=== PATIENT | male | born 1990 | race Caucasian/White ===

== ENCOUNTER 2023-01-12 20:06 | Emergency (ER) | payer MEDICAID, SELFPAY ==
[2023-01-12 20:21] VITALS: BP 134/83; PULSE 63; RESP 14; TEMP 36.9; O2SAT 100; BMI 29.4
[2023-01-12 20:22] VITALS: BP 134/83
--- NOTE | 2023-01-12 20:30 | ECG_ITS ---
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
--- NOTE | 2023-01-12 20:36 | ED_ITS ---
Documented by User: ARIC Coulter 01/12/23 22:43 HPI - Chest Pain General Chief Complaint: Chest Pain Stated Complaint: CHEST PAIN Time Seen by Provider: 01/12/23 20:08 Source: patient Mode of arrival: walk-in History of Present Illness HPI narrative: patient is a 32-year-old male history of tricuspid valve repair five years ago who presents to the Emergency Room for a one-week history of anterior chest discomfort, left arm pain and jaw pain. He states his symptoms have been coming and going over the last week, he states approximately two weeks ago he fell on a walk and was concerned she may have broken something in his sternum where he had his previous surgery but states the sternal pain seems to of subsided. He has had no fevers, cough, congestion. He does not feel short of breath. He states when his jaw pain got bad this evening, he got very anxious and nervous and came to the Emergency Room to be evaluated. He has had no swelling in his legs. Related Data Home Medications Medication Instructions Recorded Confirmed famotidine 20 mg tablet 20 mg PO BID 01/12/23 01/12/23 lisinopril 10 mg tablet 10 mg PO DAILY 01/12/23 01/12/23 Previous Rx's Medication Instructions Recorded methocarbamol 750 mg tablet 750 mg PO TID PRN pain #20 tabs 01/12/23 naproxen sodium 550 mg tablet 550 mg PO BID PRN pain #10 tabs 01/12/23 Allergies Allergy/AdvReac Type Severity Reaction Status Date / Time diphenhydramine Allergy Severe Verified 01/12/23 20:24 [From Dana] Penicillins Allergy Severe Verified 01/12/23 20:24 Review of Systems ROS Constitutional Denies: fever or chills Ears, nose, mouth, and throat Denies: throat pain Cardiovascular Reports: chest pain; Denies: palpitations Respiratory Denies: shortness of breath or cough Gastrointestinal Denies: nausea or vomiting Genitourinary Denies: painful urination Musculoskeletal Denies: back pain Integumentary/Breast Denies: rash Neurological Denies: headache Endocrine Denies: excessive urination Allergic/Immunologic Denies: hives Exam Narrative Exam Narrative: Gen.: Awake, alert, in no distress Head: Normocephalic, atraumatic ENT: Moist mucous membranes Respiratory: No respiratory distress, lungs clear bilaterally, well-healed surgical incision over the sternum that is nontender with no ecchymosis or flail chest noted Cardio: Regular rate and rhythm Gastrointestinal: Abdomen is soft, nondistended and nontender to palpation Extremities: Moves extremities equally, no pedal edema Psych: Normal mood and affect Neuro: No focal neuro deficit Skin: Warm, dry, intact Constitutional Vital Signs, click to edit/add: Last Vital Signs Temp 98.5 F 01/12/23 20:21 Pulse 59 L 01/12/23 22:50 Resp 20 01/12/23 22:50 BP 124/79 H 01/12/23 22:50 Pulse Ox 99 01/12/23 22:50 O2 Del Method Room Air 01/12/23 22:50 Course Vital Signs Vital signs: Vital Signs Temperature 98.5 F 01/12/23 20:21 Pulse Rate 63 01/12/23 20:21 Respiratory Rate 14 01/12/23 20:21 Blood Pressure 134/83 H 01/12/23 20:21 Pulse Oximetry 100 01/12/23 20:21 Oxygen Delivery Method Room Air 01/12/23 20:21 Temperature 98.5 F 01/12/23 20:21 Pulse Rate 59 L 01/12/23 22:50 Respiratory Rate 20 01/12/23 22:50 Blood Pressure 124/79 H 01/12/23 22:50 Pulse Oximetry 99 01/12/23 22:50 Oxygen Delivery Method Room Air 01/12/23 22:50 MDM - Chest Pain MDM Narrative Medical decision making narrative: patient was treated with IV Toradol, symptoms of been persistent for over a week. No EKG changes this evening, labs including d-dimer and troponin are within normal limits and x-rays of the chest and sternum show no evidence of acute process. given the patient's clinical history, troponin was repeated and is also within normal limits. Heart score is 2, patient with no history of coronary artery disease or vessel disease. Discharged home with NSAIDs and muscle relaxants. Follow-up with your dispatcher motor vehicle and return to the Emergency Room if symptoms change or worsen Medical Records Data Attestation: I reviewed the patient's medical records. Lab Data Attestation: I reviewed the patient's lab results. Labs: Lab Results 01/12/23 01/12/23 Range/Units 20:45 22:05 WBC 8.6 (4.0-11.0) 10^3/uL RBC 4.55 L (4.70-6.10) 10^6/uL Hgb 14.0 (14.0-18.0) g/dL Hct 41.3 L (42.0-54.0) % MCV 90.8 (80.0-94.0) fL MCH 30.8 (25.9-34.0) pg MCHC 33.9 (29.9-35.2) g/dL RDW 11.8 (11.0-15.0) % Plt Count 266 (150-450) 10^3/uL MPV 10.3 (9.5-13.5) fL Neut % (Auto) 47.8 (43.0-75.0) % Lymph % (Auto) 41.8 (20.5-60.0) % [place] % (Auto) 5.1 (1.7-12.0) % Eos % (Auto) 4.2 (0.9-7.0) % Baso % (Auto) 0.9 (0.2-2.0) % Neut # (Auto) 4.1 (1.4-6.5) 10^3/uL Lymph # (Auto) 3.6 (1.2-3.8) 10^3/uL [place] # (Auto) 0.4 (0.3-0.8) 10^3/uL Eos # (Auto) 0.4 (0.0-0.7) 10^3/uL Baso # (Auto) 0.1 (0.0-0.1) 10^3/uL Abs Immat Gran (auto) 0.02 (0.00-0.03) 10^3/uL Imm/Tot Granulo (auto) 0.2 (0.0-0.5) % PT 9.8 (9.0-11.6) sec INR <0.93 APTT 29.0 (22.3-36.2) sec D-Dimer <0.19 (<=0.59) mg/L FEU Sodium 141 (136-145) mmol/L Potassium 3.9 (3.5-5.1) mmol/L Chloride 107 (98-107) mmol/L Carbon Dioxide 27.0 (21.0-32.0) mmol/L Anion Gap 10.9 BUN 17.0 (7.0-18.0) mg/dL Creatinine 1.23 (0.70-1.30) mg/dL Est GFR ( Amer) >60 (>=60) Est GFR (Non-Af Amer) >60 (>=60) BUN/Creatinine Ratio 13.8 Glucose 96 (74-106) mg/dL Calcium 9.1 (8.5-10.1) mg/dL Total Bilirubin 0.4 (0.2-1.0) mg/dL AST 10 L (15-37) U/L ALT 29 (16-63) U/L Alkaline Phosphatase 80 (46-116) U/L Troponin I High Sens 5.4 5.0 (4.0-76.1) pg/mL NT-Pro-B Natriuret Pep 64.0 (<=450.0) pg/mL Total Protein 7.4 (6.4-8.2) g/dL Albumin 4.3 (3.4-5.0) g/dL Globulin 3.1 g/dL Albumin/Globulin Ratio 1.4 Imaging Data Chest x-ray: Attestation: I have reviewed the pertinent imaging results. Radiologist's impression: Procedure: XR chest 1V EXAM: XR chest 1V, XR sternum min 2V REASON FOR EXAM: Male, 32 years, chest pain. TECHNIQUE: A single AP view of the chest is performed. 2 views of the sternum are performed. COMPARISON: 06/27/2022. FINDINGS: The lungs are expanded and clear. Normal pleura. Sternal wires are present. Normal heart size. A prosthetic valve is seen. Normal mediastinum and leann. Normal visualized pulmonary arteries. Normal visualized aortic arch and descending thoracic aorta. Normal visualized thoracic spine. Normal visualized ribs, clavicles, and shoulders. No sternal fracture is seen. There is no demonstrated abnormality of the visualized soft tissue structures of the upper abdomen. IMPRESSION: No acute process in the lungs. No fracture. Electronically authenticated by: RANJIT COTA Date: 01/12/2023 22:37 Procedure: XR sternum min 2V EXAM: XR chest 1V, XR sternum min 2V REASON FOR EXAM: Male, 32 years, chest pain. TECHNIQUE: A single AP view of the chest is performed. 2 views of the sternum are performed. COMPARISON: 06/27/2022. FINDINGS: The lungs are expanded and clear. Normal pleura. Sternal wires are present. Normal heart size. A prosthetic valve is seen. Normal mediastinum and leann. Normal visualized pulmonary arteries. Normal visualized aortic arch and descending thoracic aorta. Normal visualized thoracic spine. Normal visualized ribs, clavicles, and shoulders. No sternal fracture is seen. There is no demonstrated abnormality of the visualized soft tissue structures of the upper abdomen. IMPRESSION: No acute process in the lungs. No fracture. Electronically authenticated by: RANJIT COTA Date: 01/12/2023 22:37 ECG Data Attestation: I personally reviewed and interpreted this ECG as follows: (normal sinus rhythm at a rate of sixty-nine with a right bundle-branch block, no acute ST elevation or ectopy. EKG reviewed by attending physician) Heart Score History: Moderatly Suspicious ECG: Normal Age: <45 years Risk Factors: 1 or 2 Risk Factors Troponin: <Normal Limit Total Heart Score Recommendations & Risks:: 2 Discharge Plan Discharge Chief Complaint: Chest Pain Clinical Impression: Atypical chest pain Patient Disposition: Home, Self-Care Time of Disposition Decision: 22:37 Condition: Good Mode of Transportation: Private Vehicle Prescriptions / Home Meds: New methocarbamol 750 mg tablet 750 mg PO TID PRN (Reason: pain) Qty: 20 0RF naproxen sodium 550 mg tablet 550 mg PO BID PRN (Reason: pain) Qty: 10 0RF No Action famotidine 20 mg tablet 20 mg PO BID lisinopril 10 mg tablet 10 mg PO DAILY Instructions: Chest Pain (ED) Stand Alone Forms: Portal Instructions Referrals: KRISTIE ARCEO [Primary Care Provider] - 1 week Discharge Date/Time: 01/12/23 22:52 Documented by User: Bebe Ortiz MD 01/12/23 22:58 HPI - Chest Pain General Chief Complaint: Chest Pain Stated Complaint: CHEST PAIN Time Seen by Provider: 01/12/23 20:08 Related Data Home Medications Medication Instructions Recorded Confirmed famotidine 20 mg tablet 20 mg PO BID 01/12/23 01/12/23 lisinopril 10 mg tablet 10 mg PO DAILY 01/12/23 01/12/23 Previous Rx's Medication Instructions Recorded methocarbamol 750 mg tablet 750 mg PO TID PRN pain #20 tabs 01/12/23 naproxen sodium 550 mg tablet 550 mg PO BID PRN pain #10 tabs 01/12/23 Allergies Allergy/AdvReac Type Severity Reaction Status Date / Time diphenhydramine Allergy Severe Verified 01/12/23 20:24 [From Benadryl] Penicillins Allergy Severe Verified 01/12/23 20:24 Exam Constitutional Vital Signs, click to edit/add: Last Vital Signs Temp 98.5 F 01/12/23 20:21 Pulse 59 L 01/12/23 22:50 Resp 20 01/12/23 22:50 BP 124/79 H 01/12/23 22:50 Pulse Ox 99 01/12/23 22:50 O2 Del Method Room Air 01/12/23 22:50 Course Vital Signs Vital signs: Vital Signs Temperature 98.5 F 01/12/23 20:21 Pulse Rate 63 01/12/23 20:21 Respiratory Rate 14 01/12/23 20:21 Blood Pressure 134/83 H 01/12/23 20:21 Pulse Oximetry 100 01/12/23 20:21 Oxygen Delivery Method Room Air 01/12/23 20:21 Temperature 98.5 F 01/12/23 20:21 Pulse Rate 59 L 01/12/23 22:50 Respiratory Rate 20 01/12/23 22:50 Blood Pressure 124/79 H 01/12/23 22:50 Pulse Oximetry 99 01/12/23 22:50 Oxygen Delivery Method Room Air 01/12/23 22:50 MDM - Chest Pain MDM Narrative Medical decision making narrative: patient was treated with IV Toradol, symptoms of been persistent for over a week. No EKG changes this evening, labs including d-dimer and troponin are within normal limits and x-rays of the chest and sternum show no evidence of acute process. given the patient's clinical history, troponin was repeated and is also within normal limits. Heart score is 2, patient with no history of coronary artery disease or vessel disease. Discharged home with NSAIDs and muscle relaxants. Follow-up with your dispatcher motor vehicle and return to the Emergency Room if symptoms change or worsen Attending physician attestation I have reviewed the mid-level documentation, agree with the documentation, medical decision making and treatment plan as outlined by the mid-level provider. Lab Data Labs: Lab Results 01/12/23 01/12/23 Range/Units 20:45 22:05 WBC 8.6 (4.0-11.0) 10^3/uL RBC 4.55 L (4.70-6.10) 10^6/uL Hgb 14.0 (14.0-18.0) g/dL Hct 41.3 L (42.0-54.0) % MCV 90.8 (80.0-94.0) fL MCH 30.8 (25.9-34.0) pg MCHC 33.9 (29.9-35.2) g/dL RDW 11.8 (11.0-15.0) % Plt Count 266 (150-450) 10^3/uL MPV 10.3 (9.5-13.5) fL Neut % (Auto) 47.8 (43.0-75.0) % Lymph % (Auto) 41.8 (20.5-60.0) % [place] % (Auto) 5.1 (1.7-12.0) % Eos % (Auto) 4.2 (0.9-7.0) % Baso % (Auto) 0.9 (0.2-2.0) % Neut # (Auto) 4.1 (1.4-6.5) 10^3/uL Lymph # (Auto) 3.6 (1.2-3.8) 10^3/uL [place] # (Auto) 0.4 (0.3-0.8) 10^3/uL Eos # (Auto) 0.4 (0.0-0.7) 10^3/uL Baso # (Auto) 0.1 (0.0-0.1) 10^3/uL Abs Immat Gran (auto) 0.02 (0.00-0.03) 10^3/uL Imm/Tot Granulo (auto) 0.2 (0.0-0.5) % PT 9.8 (9.0-11.6) sec INR <0.93 APTT 29.0 (22.3-36.2) sec D-Dimer <0.19 (<=0.59) mg/L FEU Sodium 141 (136-145) mmol/L Potassium 3.9 (3.5-5.1) mmol/L Chloride 107 (98-107) mmol/L Carbon Dioxide 27.0 (21.0-32.0) mmol/L Anion Gap 10.9 BUN 17.0 (7.0-18.0) mg/dL Creatinine 1.23 (0.70-1.30) mg/dL Est GFR ( Amer) >60 (>=60) Est GFR (Non-Af Amer) >60 (>=60) BUN/Creatinine Ratio 13.8 Glucose 96 (74-106) mg/dL Calcium 9.1 (8.5-10.1) mg/dL Total Bilirubin 0.4 (0.2-1.0) mg/dL AST 10 L (15-37) U/L ALT 29 (16-63) U/L Alkaline Phosphatase 80 (46-116) U/L Troponin I High Sens 5.4 5.0 (4.0-76.1) pg/mL NT-Pro-B Natriuret Pep 64.0 (<=450.0) pg/mL Total Protein 7.4 (6.4-8.2) g/dL Albumin 4.3 (3.4-5.0) g/dL Globulin 3.1 g/dL Albumin/Globulin Ratio 1.4 Heart Score Total Heart Score Recommendations & Risks:: 2 Discharge Plan Discharge Chief Complaint: Chest Pain Clinical Impression: Atypical chest pain Patient Disposition: Home, Self-Care Time of Disposition Decision: 22:37 Condition: Good Mode of Transportation: Private Vehicle Prescriptions / Home Meds: New methocarbamol 750 mg tablet 750 mg PO TID PRN (Reason: pain) Qty: 20 0RF naproxen sodium 550 mg tablet 550 mg PO BID PRN (Reason: pain) Qty: 10 0RF No Action famotidine 20 mg tablet 20 mg PO BID lisinopril 10 mg tablet 10 mg PO DAILY Instructions: Chest Pain (ED) Stand Alone Forms: Portal Instructions Referrals: KRISTIE ARCEO [Primary Care Provider] - 1 week Discharge Date/Time: 01/12/23 22:52
[2023-01-12 20:53] LABS: Basophils Absolute Auto 0.1 10^3/uL (0.0-0.1); Basophils Percent Auto 0.9 % (0.2-2.0); Eosinophils Absolute Auto 0.4 10^3/uL (0.0-0.7); Eosinophils Percent Auto 4.2 % (0.9-7.0); Hematocrit 41.3 % (42.0-54.0); Immature Granulocytes Abs Auto 0.02 10^3/uL (0.00-0.03); Immature Granulocytes Pct Auto 0.2 % (0.0-0.5); Lymphocytes Absolute Auto 3.6 10^3/uL (1.2-3.8); Lymphocytes Percent Auto 41.8 % (20.5-60.0); Mean Corpuscular HGB Conc 33.9 g/dL (29.9-35.2); Mean Corpuscular Hemoglobin 30.8 pg (25.9-34.0); Mean Corpuscular Volume 90.8 fL (80.0-94.0); Mean Platelet Volume 10.3 fL (9.5-13.5); Monocytes Absolute Auto 0.4 10^3/uL (0.3-0.8); Monocytes Percent Auto 5.1 % (1.7-12.0); Neutrophils Absolute Auto 4.1 10^3/uL (1.4-6.5); Neutrophils Percent Auto 47.8 % (43.0-75.0); Platelet Count 266 10^3/uL (150-450); Red Blood Count 4.55 10^6/uL (4.70-6.10); Red Cell Distribution Width 11.8 % (11.0-15.0); White Blood Count 8.6 10^3/uL (4.0-11.0)
[2023-01-12] MEDS: KETOROLAC TROMETHAMINE 30 MG/ML VIAL IVP (21:01)
[2023-01-12 21:08] LABS: Prothrombin Time 9.8 sec (9.0-11.6)
[2023-01-12 21:10] VITALS: O2SAT 96
[2023-01-12 21:10] LABS: D Dimer <0.19 mg/L FEU (<=0.59); INR <0.93
--- NOTE | 2023-01-12 21:12 | XR_ITS ---
The [address] [address] Patient Name: ALLIE TORRE MRN: [id number] date: 1990 Sex: M Assigned Patient Location: ER Current Patient Location: ED.MAIN Accession/Order Number: [id number] Exam Date: 01/12/2023 21:25 Report Date: 01/12/2023 22:37 At the request of: GEORGIANA LYLE Procedure: XR chest 1V EXAM: XR chest 1V, XR sternum min 2V REASON FOR EXAM: Male, 32 years, chest pain. TECHNIQUE: A single AP view of the chest is performed. 2 views of the sternum are performed. COMPARISON: 06/27/2022. FINDINGS: The lungs are expanded and clear. Normal pleura. Sternal wires are present. Normal heart size. A prosthetic valve is seen. Normal mediastinum and leann. Normal visualized pulmonary arteries. Normal visualized aortic arch and descending thoracic aorta. Normal visualized thoracic spine. Normal visualized ribs, clavicles, and shoulders. No sternal fracture is seen. There is no demonstrated abnormality of the visualized soft tissue structures of the upper abdomen. XR/XR chest 1V IMPRESSION: No acute process in the lungs. No fracture. Electronically authenticated by: RANJIT COTA Date: 01/12/2023 22:37
[2023-01-12 21:14] LABS: Alanine Aminotransferase 29 U/L (16-63); Albumin Globulin Ratio 1.4; Albumin Level 4.3 g/dL (3.4-5.0); Alkaline Phosphatase 80 U/L (46-116); Anion Gap 10.9; Aspartate Amino Transferase 10 U/L (15-37); BUN Creatinine Ratio 13.8; Bilirubin Total 0.4 mg/dL (0.2-1.0); Calcium 9.1 mg/dL (8.5-10.1); Chloride 107 mmol/L (98-107); Estimated GFR (African America >60 (>=60); Estimated GFR (Non-African Ame >60 (>=60); Globulin 3.1 g/dL; Glucose 96 mg/dL (74-106); Potassium 3.9 mmol/L (3.5-5.1); Sodium 141 mmol/L (136-145); Total Protein 7.4 g/dL (6.4-8.2); Troponin I High Sensitivity 5.4 pg/mL (4.0-76.1)
--- NOTE | 2023-01-12 21:23 | XR_ITS ---
The [address] [address] Patient Name: ALLIE TORRE MRN: [id number] date: 1990 Sex: M Assigned Patient Location: ER Current Patient Location: ED.MAIN Accession/Order Number: [id number] Exam Date: 01/12/2023 21:25 Report Date: 01/12/2023 22:37 At the request of: GEORGIANA LYLE Procedure: XR sternum min 2V EXAM: XR chest 1V, XR sternum min 2V REASON FOR EXAM: Male, 32 years, chest pain. TECHNIQUE: A single AP view of the chest is performed. 2 views of the sternum are performed. COMPARISON: 06/27/2022. FINDINGS: The lungs are expanded and clear. Normal pleura. Sternal wires are present. Normal heart size. A prosthetic valve is seen. Normal mediastinum and leann. Normal visualized pulmonary arteries. Normal visualized aortic arch and descending thoracic aorta. Normal visualized thoracic spine. Normal visualized ribs, clavicles, and shoulders. No sternal fracture is seen. There is no demonstrated abnormality of the visualized soft tissue structures of the upper abdomen. XR/XR sternum min 2V IMPRESSION: No acute process in the lungs. No fracture. Electronically authenticated by: RANJIT COTA Date: 01/12/2023 22:37
[2023-01-12 22:50] VITALS: BP 124/79; PULSE 59; RESP 20; O2SAT 99
== END 2023-01-12 22:52 | disposition home or self-care (01) ==
PROVIDERS: Physician Assistant; Emergency Provider Emergency Medicine; PCP Family Medicine
DX: R07.89 Other chest pain (principal); Z98.890 Other specified postprocedural states
CPT/HCPCS: 36415; 71045; 71120; 80053; 83880; 84484; 85025; 85378; 85610; 85730; 93005; 96374; 99285

== ENCOUNTER 2023-08-28 16:12 | Emergency (ER) | payer OTHER, SELFPAY ==
[2023-08-28 16:20] VITALS: BP 135/83; PULSE 83; RESP 16; TEMP 36.9; O2SAT 98; BMI 29.5
--- NOTE | 2023-08-28 16:30 | ECG_ITS ---
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
--- NOTE | 2023-08-28 16:41 | ED.CHESTPAI1 ---
HPI - Chest Pain General Chief Complaint: Chest Pain Stated Complaint: Chest Pain Time Seen by Provider: 08/28/23 16:25 Source: patient Mode of arrival: walk-in History of Present Illness HPI narrative: Patient is a 33-year-old male who presents to the emergency department for pain in the left arm radiating into the left side of the chest and left side of the neck. He states pain began 3 to 4 days ago. He was concerned because he has a history of tricuspid valve surgery at the [facility] 7 years ago. He has been seen in the past for chest pain at this facility. He has not had any significant upper respiratory symptoms, fevers or shortness of breath. No peripheral edema. He states pain is throughout the left arm with occasional tingling, pain is worse with movement at the left shoulder. He reports feeling increased stress over the last week due to the loss of his mother, his family member at the bedside states that he did carry the casket with that left arm. Related Data Home Medications Medication Instructions Recorded Confirmed famotidine 20 mg tablet 20 mg PO BID 01/12/23 01/12/23 lisinopril 10 mg tablet 10 mg PO DAILY 01/12/23 01/12/23 Previous Rx's Medication Instructions Recorded methocarbamol 750 mg tablet 750 mg PO TID PRN pain #20 tabs 01/12/23 naproxen sodium 550 mg tablet 550 mg PO BID PRN pain #10 tabs 01/12/23 methylprednisolone 4 mg tablets in See Rx Instructions .Route 08/28/23 a dose pack (Medrol (Shmuel)) .COMPLEX #21 ea orphenadrine citrate 100 mg 100 mg PO BID PRN muscle pain #14 08/28/23 tablet,extended release tabs Allergies Allergy/AdvReac Type Severity Reaction Status Date / Time diphenhydramine Allergy Severe Verified 08/28/23 16:20 [From Benadryl] Penicillins Allergy Severe Verified 08/28/23 16:20 Review of Systems ROS Constitutional Denies: fever or chills Ears, nose, mouth, and throat Denies: throat pain or nasal congestion Cardiovascular Reports: chest pain Respiratory Denies: shortness of breath or cough Gastrointestinal Denies: nausea or vomiting Musculoskeletal Reports: neck pain and extremity pain; Denies: back pain, extremity swelling, joint pain or limited range of motion Integumentary/Breast Denies: rash Neurological Denies: headache Hematologic/Lymphatic Denies: easy bruising or easy bleeding Exam Narrative Exam Narrative: Gen.: Awake, alert, in no distress Head: Normocephalic, atraumatic ENT: Moist mucous membranes Respiratory: No respiratory distress, lungs clear bilaterally Cardio: Regular rate and rhythm Extremities: Moves extremities equally, Pain with movement of the left arm at the shoulder with no bony point tenderness or obvious deformity. 2+ radial pulses bilaterally. 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 Psych: Normal mood and affect Neuro: No focal neuro deficit Skin: Warm, dry, intact Constitutional Vital Signs, click to edit/add: Last Vital Signs Temp 98.5 F 08/28/23 16:20 Pulse 83 08/28/23 16:20 Resp 16 08/28/23 16:20 BP 135/83 08/28/23 16:20 Pulse Ox 98 08/28/23 16:20 O2 Del Method Room Air 08/28/23 16:49 Course Vital Signs Vital signs: Vital Signs Temperature 98.5 F 08/28/23 16:20 Pulse Rate 83 08/28/23 16:20 Respiratory Rate 16 08/28/23 16:20 Blood Pressure 135/83 08/28/23 16:20 Pulse Oximetry 98 08/28/23 16:20 Oxygen Delivery Method Room Air 08/28/23 16:20 Temperature 98.5 F 08/28/23 16:20 Pulse Rate 83 08/28/23 16:20 Respiratory Rate 16 08/28/23 16:20 Blood Pressure 135/83 08/28/23 16:20 Pulse Oximetry 98 08/28/23 16:20 Oxygen Delivery Method Room Air 08/28/23 16:49 MDM - Chest Pain MDM Narrative Medical decision making narrative: Lab studies including D-dimer and troponin are within normal limits, chest x-ray and cervical x-rays with no evidence of acute process. Patient treated for suspected musculoskeletal pain in the left arm radiating into the neck. He is started on a short course of NSAIDs and muscle relaxants for home. Follow-up with PCP and return to the ER if symptoms change or worsen. Medical Records Data Attestation: I reviewed the patient's medical records. Lab Data Attestation: I reviewed the patient's lab results. Labs: Lab Results 08/28/23 Range/Units 16:30 WBC 8.7 (4.0-11.0) 10^3/uL RBC 4.38 L (4.70-6.10) 10^6/uL Hgb 13.4 L (14.0-18.0) g/dL Hct 39.7 L (42.0-54.0) % MCV 90.6 (80.0-94.0) fL MCH 30.6 (25.9-34.0) pg MCHC 33.8 (29.9-35.2) g/dL RDW 11.7 (11.0-15.0) % Plt Count 313 (150-450) 10^3/uL MPV 10.4 (9.5-13.5) fL Neut % (Auto) 54.3 (43.0-75.0) % Lymph % (Auto) 35.5 (20.5-60.0) % [place] % (Auto) 6.0 (1.7-12.0) % Eos % (Auto) 2.8 (0.9-7.0) % Baso % (Auto) 1.1 (0.2-2.0) % Neut # (Auto) 4.7 (1.4-6.5) 10^3/uL Lymph # (Auto) 3.1 (1.2-3.8) 10^3/uL [place] # (Auto) 0.5 (0.3-0.8) 10^3/uL Eos # (Auto) 0.2 (0.0-0.7) 10^3/uL Baso # (Auto) 0.1 (0.0-0.1) 10^3/uL Abs Immat Gran (auto) 0.03 (0.00-0.03) 10^3/uL Imm/Tot Granulo (auto) 0.3 (0.0-0.5) % PT 10.2 (9.0-11.6) sec INR 0.96 APTT 27.9 (22.3-36.2) sec D-Dimer <0.19 (<=0.59) mg/L FEU Sodium 142 (136-145) mmol/L Potassium 3.8 (3.5-5.1) mmol/L Chloride 108 H (98-107) mmol/L Carbon Dioxide 25.8 (21.0-32.0) mmol/L Anion Gap 12.0 BUN 15.0 (7.0-18.0) mg/dL Creatinine 0.93 (0.70-1.30) mg/dL Est GFR ( Amer) >60 (>=60) Est GFR (Non-Af Amer) >60 (>=60) BUN/Creatinine Ratio 16.1 Glucose 92 (74-106) mg/dL Calcium 9.2 (8.5-10.1) mg/dL Total Bilirubin 0.5 (0.2-1.0) mg/dL AST 13 L (15-37) U/L ALT 26 (16-63) U/L Alkaline Phosphatase 75 (46-116) U/L Troponin I High Sens 5.0 (4.0-76.1) pg/mL NT-Pro-B Natriuret Pep 46.0 (<=450.0) pg/mL Total Protein 7.6 (6.4-8.2) g/dL Albumin 4.1 (3.4-5.0) g/dL Globulin 3.5 g/dL Albumin/Globulin Ratio 1.2 Imaging Data Chest x-ray: Attestation: I have reviewed the pertinent imaging results. Radiologist's impression: ITS Impressions Cervical Spine X-Ray 08/28/23 17:19 IMPRESSION: Minimal retrolisthesis of C2-C5 measuring 1 to 2 mm possibly physiologic. Otherwise unremarkable plain film examination of the cervical spine. Electronically authenticated by: DEJA DODSON Date: 08/28/2023 18:31 Chest X-Ray 08/28/23 17:19 IMPRESSION: No acute infiltrate or evidence of cardiac decompensation. The overall appearance of the chest has not changed significantly. Electronically authenticated by: MANUEL COLON Date: 08/28/2023 18:26 ECG Data Attestation: I personally reviewed and interpreted this ECG as follows: (Normal sinus rhythm Rate of 84, no acute ST elevation, no ectopy. No significant change from 01/12/2023. EKG reviewed by attending physician) ECG interpretation date: 08/28/23 Heart Score History: Slightly/Non-Suspicious ECG: NS Repolarization Age: <45 years Risk Factors: No Risk Factors Troponin: <Normal Limit Total Heart Score Recommendations & Risks:: 1 Discharge Plan Discharge Chief Complaint: Chest Pain Clinical Impression: Atypical chest pain Patient Disposition: Home, Self-Care Time of Disposition Decision: 18:40 Condition: Good Prescriptions / Home Meds: New orphenadrine citrate 100 mg tablet extended release 100 mg PO BID PRN (Reason: muscle pain) Qty: 14 0RF methylprednisolone [Medrol (Shmuel)] 4 mg tablets,dose pack See Rx Instructions .ROUTE .COMPLEX Qty: 21 0RF Rx Instructions: Taper as directed No Action famotidine 20 mg tablet 20 mg PO BID lisinopril 10 mg tablet 10 mg PO DAILY methocarbamol 750 mg tablet 750 mg PO TID PRN (Reason: pain) Qty: 20 0RF naproxen sodium 550 mg tablet 550 mg PO BID PRN (Reason: pain) Qty: 10 0RF Instructions: Chest Pain (ED) Referrals: Physician,Non-Staff, MD [Primary Care Provider] - 1 week Stand Alone Forms: Portal Instructions
[2023-08-28 16:55] LABS: Basophils Absolute Auto 0.1 10^3/uL (0.0-0.1); Basophils Percent Auto 1.1 % (0.2-2.0); Eosinophils Absolute Auto 0.2 10^3/uL (0.0-0.7); Eosinophils Percent Auto 2.8 % (0.9-7.0); Hematocrit 39.7 % (42.0-54.0); Hemoglobin 13.4 g/dL (14.0-18.0); Immature Granulocytes Abs Auto 0.03 10^3/uL (0.00-0.03); Immature Granulocytes Pct Auto 0.3 % (0.0-0.5); Lymphocytes Absolute Auto 3.1 10^3/uL (1.2-3.8); Lymphocytes Percent Auto 35.5 % (20.5-60.0); Mean Corpuscular HGB Conc 33.8 g/dL (29.9-35.2); Mean Corpuscular Hemoglobin 30.6 pg (25.9-34.0); Mean Corpuscular Volume 90.6 fL (80.0-94.0); Mean Platelet Volume 10.4 fL (9.5-13.5); Monocytes Absolute Auto 0.5 10^3/uL (0.3-0.8); Neutrophils Absolute Auto 4.7 10^3/uL (1.4-6.5); Neutrophils Percent Auto 54.3 % (43.0-75.0); Platelet Count 313 10^3/uL (150-450); Red Blood Count 4.38 10^6/uL (4.70-6.10); Red Cell Distribution Width 11.7 % (11.0-15.0); White Blood Count 8.7 10^3/uL (4.0-11.0)
[2023-08-28 17:12] LABS: INR 0.96; Partial Thromboplastin Time 27.9 sec (22.3-36.2); Prothrombin Time 10.2 sec (9.0-11.6)
[2023-08-28 17:16] LABS: D Dimer <0.19 mg/L FEU (<=0.59)
--- NOTE | 2023-08-28 17:19 | XR_ITS ---
The [address] [address] Patient Name: ALLIE TORRE MRN: [id number] date: 1990 Sex: M Assigned Patient Location: ER Current Patient Location: ER Accession/Order Number: [id number] Exam Date: 08/28/2023 17:40 Report Date: 08/28/2023 18:26 At the request of: GEORGIANA LYLE Procedure: XR chest 1V EXAM: XR chest 1V at 1745 hours HISTORY: Chest pain COMPARISON: 01/12/2023 TECHNIQUE: AP upright portable chest x-ray FINDINGS: The heart is not enlarged and the vasculature is not distended. No acute infiltrate, effusion or pneumothorax is identified. Multiple sternal wire sutures are noted with a prosthetic cardiac valve. The osseous structures are grossly intact. XR/XR chest 1V IMPRESSION: No acute infiltrate or evidence of cardiac decompensation. The overall appearance of the chest has not changed significantly. Electronically authenticated by: MANUEL COLON Date: 08/28/2023 18:26
--- NOTE | 2023-08-28 17:19 | XR_ITS ---
The [address] [address] Patient Name: ALLIE TORRE MRN: [id number] date: 1990 Sex: M Assigned Patient Location: ER Current Patient Location: ER Accession/Order Number: [id number] Exam Date: 08/28/2023 17:40 Report Date: 08/28/2023 18:31 At the request of: GEORGIANA LYLE Procedure: XR cervical spine 2-3V EXAM TYPE: XR cervical spine 2-3V INDICATION: Neck pain, shoulder pain COMPARISON: None. TECHNIQUE: 3 views of the cervical spine. FINDINGS: There is minimal retrolisthesis of the C2-C5 levels measuring 1 to 2 mm. Disc spaces are maintained. Prevertebral soft tissues are within normal limits. Lateral masses of C1-C2 are symmetric. XR/XR cervical spine 2-3V IMPRESSION: Minimal retrolisthesis of C2-C5 measuring 1 to 2 mm possibly physiologic. Otherwise unremarkable plain film examination of the cervical spine. Electronically authenticated by: DEJA DODSON Date: 08/28/2023 18:31
[2023-08-28] MEDS: KETOROLAC TROMETHAMINE 30 MG/ML VIAL IVP (17:20)
[2023-08-28] MEDS: ORPHENADRINE 60 MG/ 2 ML VIAL IV (17:21)
[2023-08-28 17:42] LABS: Alanine Aminotransferase 26 U/L (16-63); Albumin Globulin Ratio 1.2; Albumin Level 4.1 g/dL (3.4-5.0); Alkaline Phosphatase 75 U/L (46-116); Aspartate Amino Transferase 13 U/L (15-37); BUN Creatinine Ratio 16.1; Bilirubin Total 0.5 mg/dL (0.2-1.0); Calcium 9.2 mg/dL (8.5-10.1); Carbon Dioxide 25.8 mmol/L (21.0-32.0); Chloride 108 mmol/L (98-107); Estimated GFR (African America >60 (>=60); Estimated GFR (Non-African Ame >60 (>=60); Globulin 3.5 g/dL; Glucose 92 mg/dL (74-106); Potassium 3.8 mmol/L (3.5-5.1); Sodium 142 mmol/L (136-145); Total Protein 7.6 g/dL (6.4-8.2)
== END 2023-08-28 19:00 | disposition home or self-care (01) ==
PROVIDERS: Physician Assistant; Emergency Provider Emergency Medicine Emergency Medical Services
DX: R07.89 Other chest pain (principal); Z79.899 Other long term (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 therapy
CPT/HCPCS: 36415; 71045; 72040; 80053; 83880; 84484; 85025; 85378; 85610; 85730; 93005; 96374; 96375; 99285

== ENCOUNTER 2024-05-22 12:26 | Emergency (ER) | payer OTHER, SELFPAY ==
[2024-05-22 12:32] VITALS: BP 143/87; PULSE 75; TEMP 36.7; O2SAT 99; BMI 31.5
--- NOTE | 2024-05-22 12:48 | CT_ITS ---
The [address] [address] Patient Name: ALLIE TORRE MRN: [id number] date: 1990 Sex: M Assigned Patient Location: ER Current Patient Location: ER Accession/Order Number: [id number] Exam Date: 05/22/2024 13:05 Report Date: 05/22/2024 14:16 At the request of: LARON LUIS Procedure: CT abdomen pelvis w con EXAMINATION: CT abdomen pelvis w con HISTORY: Diffuse pain, worse in the left upper quadrant COMPARISON: No relevant comparison available. TECHNIQUE: Axial, Coronal, and Sagittal images were obtained without and/or with IV contrast as indicated by examination type. Dose reduction techniques were achieved by using automated exposure control and/or adjustment of mA and/or kV according to patient size and/or use of iterative reconstruction technique. FINDINGS: LUNG BASES: No visible pulmonary or pleural disease. LIVER: No enlargement, atrophy, suspicious density, or significant focal lesion. BILIARY: No dilatation or calcification. PANCREAS: No lesion, fluid collection, or abnormal duct dilatation. SPLEEN: No enlargement or focal lesion. ADRENALS: No mass or enlargement. KIDNEYS: No mass, obstruction, or calcification. BOWEL/MESENTERY: Minimal circumferential wall thickening of distal descending and proximal sigmoid colon without surrounding inflammatory changes. AORTA/VASCULAR: No aneurysm or dissection. RETROPERITONEUM: No mass or adenopathy. LYMPH NODES: No adenopathy. URINARY BLADDER: No visible focal wall thickening, lesion, or calculus. PELVIC ORGANS: No visible mass. Pelvic organs appropriate for patient age. ABDOMINAL WALL: No mass or hernia. BONES: No bony lesion or fracture. OTHER: Negative. CT/CT abdomen pelvis w con IMPRESSION: 1. Possible mild colitis. Otherwise unremarkable abdomen and pelvis. Electronically authenticated by: ORLY DEL REAL Date: 05/22/2024 14:16
--- NOTE | 2024-05-22 12:48 | XR_ITS ---
The [address] [address] Patient Name: ALLIE TORRE MRN: [id number] date: 1990 Sex: M Assigned Patient Location: ED.MAIN Current Patient Location: ER Accession/Order Number: [id number] Exam Date: 05/22/2024 13:05 Report Date: 05/22/2024 14:08 At the request of: LARON LUIS Procedure: XR chest 1V EXAM: XR chest 1V at 1321 hours HISTORY: cough, LUQ pain COMPARISON: 08/28/2023 TECHNIQUE: AP upright portable chest x-ray FINDINGS: The lungs are clear. No acute infiltrate, effusion or pneumothorax is identified. The heart is not enlarged and the vasculature is not distended. Multiple sternal wire sutures are noted. The osseous structures are grossly intact. XR/XR chest 1V IMPRESSION: No acute infiltrate or evidence of cardiac decompensation, and the overall appearance of the chest has not changed significantly. Electronically authenticated by: MANUEL COLON Date: 05/22/2024 14:08
--- NOTE | 2024-05-22 12:49 | ED.ABDPAIN1 ---
HPI - Abdominal Pain General Chief Complaint: Abdominal Pain Stated Complaint: ABDOMINAL PAIN Time Seen by Provider: 05/22/24 12:39 Source: patient Mode of arrival: walk-in History of Present Illness HPI narrative: 34-year-old male presents to the emergency department for abdominal pain. Its diffuse physically worse in the left upper quadrant and has had this for the last week or 2. He states is there all the time but is worse when he eats. No constipation diarrhea or vomiting. No blood in his stool. He has never had issues like this previously. He has been taking Tums and Pepcid. Related Data Home Medications ?Medication ?Instructions ?Recorded ?Confirmed lisinopril 10 mg tablet 10 mg PO DAILY 01/12/23 05/22/24 Previous Rx's ?Medication ?Instructions ?Recorded ciprofloxacin HCl 500 mg tablet 500 mg PO Q12H #20 tabs 05/22/24 (Cipro) metronidazole 500 mg tablet 500 mg PO TID #30 tabs 05/22/24 Allergies Allergy/AdvReac Type Severity Reaction Status Date / Time diphenhydramine (From Allergy Severe Verified 08/28/23 16:20 Benadryl) Penicillins Allergy Severe Verified 08/28/23 16:20 Review of Systems ROS Narrative A ten point review of systems is negative except as noted above. PFSH PFSH Social History Little interest or pleasure in doing things: not at all Feeling down, depressed, or hopeless: not at all Exam Narrative Exam Narrative: Nurses note and vital signs reviewed and patient is not hypoxic. General: The patient appears well and in no apparent distress. Patient is resting comfortably on cart. Skin: Warm, dry, no pallor noted. There is no rash noted. Head: Normocephalic, atraumatic Eye: Normal conjunctiva, no drainage Ears, Nose, Mouth, and Throat: oral mucosa is moist. Nares patent. Cardiovascular: Regular Rate and Rhythm Respiratory: Patient is in no distress, no accessory muscle use, lungs are clear to auscultation, no wheezing, rales or rhonchi Back: non-tender GI: Normal bowel sounds, no masses or distention. Mild diffuse tenderness particular in the left upper quadrant. Musculoskeletal: The patient has no evidence of calf tenderness, no pitting edema, symmetrical pulses noted bilaterally Neurological: A&O normal speech Psychiatric: Cooperative Constitutional Vital Signs, click to edit/add: Last Vital Signs Temp 98.0 F 05/22/24 12:32 Pulse 75 05/22/24 12:32 Resp 16 05/22/24 12:32 BP 143/87 H 05/22/24 12:32 Pulse Ox 99 05/22/24 12:32 O2 Del Method Room Air 05/22/24 12:32 Course Vital Signs Vital signs: Vital Signs Temperature 98.0 F 05/22/24 12:32 Pulse Rate 75 05/22/24 12:32 Respiratory Rate 16 05/22/24 12:32 Blood Pressure 143/87 H 05/22/24 12:32 Pulse Oximetry 99 05/22/24 12:32 Oxygen Delivery Method Room Air 05/22/24 12:32 Temperature 98.0 F 05/22/24 12:32 Pulse Rate 75 05/22/24 12:32 Respiratory Rate 16 05/22/24 12:32 Blood Pressure 143/87 H 05/22/24 12:32 Pulse Oximetry 99 05/22/24 12:32 Oxygen Delivery Method Room Air 05/22/24 12:32 MDM - Abdominal Pain MDM Narrative Medical decision making narrative: CT per radiologist suggest colitis. Blood work is nonspecific. He is prescribed Cipro and Flagyl and is discharged home. Treatment diagnosis and follow-up were discussed with the patient. Differential Diagnosis Differential diagnosis: Likely abdominal pain, constipation, diverticulitis, gastroenteritis and pancreatitis Lab Data Attestation: I reviewed the patient's lab results. Labs: Lab Results 05/22/24 05/22/24 Range/Units 12:55 12:58 WBC 9.1 (4.0-11.0) 10^3/uL RBC 4.76 (4.70-6.10) 10^6/uL Hgb 14.6 (14.0-18.0) g/dL Hct 42.1 (42.0-54.0) % MCV 88.4 (80.0-94.0) fL MCH 30.7 (25.9-34.0) pg MCHC 34.7 (29.9-35.2) g/dL RDW 11.4 (11.0-15.0) % Plt Count 311 (150-450) 10^3/uL MPV 10.0 (9.5-13.5) fL Neut % (Auto) 56.1 (43.0-75.0) % Lymph % (Auto) 33.4 (20.5-60.0) % [place] % (Auto) 5.9 (1.7-12.0) % Eos % (Auto) 3.3 (0.9-7.0) % Baso % (Auto) 1.1 (0.2-2.0) % Neut # (Auto) 5.1 (1.4-6.5) 10^3/uL Lymph # (Auto) 3.0 (1.2-3.8) 10^3/uL [place] # (Auto) 0.5 (0.3-0.8) 10^3/uL Eos # (Auto) 0.3 (0.0-0.7) 10^3/uL Baso # (Auto) 0.1 (0.0-0.1) 10^3/uL Abs Immat Gran (auto) 0.02 (0.00-0.03) 10^3/uL Imm/Tot Granulo (auto) 0.2 (0.0-0.5) % Sodium 141 (136-145) mmol/L Potassium 4.1 (3.5-5.1) mmol/L Chloride 105 (98-107) mmol/L Carbon Dioxide 25.7 (21.0-32.0) mmol/L Anion Gap 14.4 BUN 15.0 (7.0-18.0) mg/dL Creatinine 1.02 (0.70-1.30) mg/dL Est GFR ( Amer) >60 (>=60 mL/min/1.73m^2) Est GFR (Non-Af Amer) >60 (>=60 mL/min/1.73m^2) BUN/Creatinine Ratio 14.7 Glucose 96 (74-106) mg/dL Calcium 9.8 (8.5-10.1) mg/dL Total Bilirubin 0.5 (0.2-1.0) mg/dL Direct Bilirubin 0.1 (0.0-0.2) mg/dL AST 12 L (15-37) U/L ALT 26 (16-63) U/L Alkaline Phosphatase 76 (46-116) U/L Total Protein 8.0 (6.4-8.2) g/dL Albumin 4.4 (3.4-5.0) g/dL Globulin 3.6 g/dL Albumin/Globulin Ratio 1.2 Amylase 73 (25-115) U/L Lipase 37.0 (16.0-77.0) U/L Urine Color Lt. yellow (YELLOW) Urine Clarity Clear (CLEAR) Urine pH 5.5 (5.0-9.0) Ur Specific [place] >=1.030 A (1.005-1.025) Urine Protein Negative (NEG/TRACE) mg/dL Urine Glucose (UA) Negative (NEGATIVE) mg/dL Urine Ketones Negative (NEGATIVE) mg/dL Urine Occult Blood Negative (NEGATIVE) Urine Nitrite Negative (NEGATIVE) Urine Bilirubin Negative (NEGATIVE) Urine Urobilinogen 0.2 (0.2-1.0) EU/dL Ur Leukocyte Esterase Negative (NEGATIVE) Urine RBC None seen (0-2) #/HPF Urine WBC None seen (NONE SEEN) #/HPF Ur Squamous Epith Cells Rare (NONE/RARE) #/LPF Urine Bacteria None seen (NONE SEEN) #/HPF Urine Mucus Trace A (NONE SEEN) Imaging Data CT scan - abdomen: Radiologist's impression: ITS Impressions Abdomen/Pelvis CT 05/22/24 12:48 IMPRESSION: 1. Possible mild colitis. Otherwise unremarkable abdomen and pelvis. Electronically authenticated by: ORLY DEL REAL Date: 05/22/2024 14:16 Chest X-Ray 05/22/24 12:48 IMPRESSION: No acute infiltrate or evidence of cardiac decompensation, and the overall appearance of the chest has not changed significantly. Electronically authenticated by: MANUEL COLON Date: 05/22/2024 14:08 Discharge Plan Discharge Chief Complaint: Abdominal Pain Clinical Impression: Colitis Patient Disposition: Home, Self-Care Time of Disposition Decision: 14:49 Condition: Good Mode of Transportation: Private Vehicle Prescriptions / Home Meds: New metronidazole 500 mg tablet 500 mg PO TID Qty: 30 0RF ciprofloxacin HCl [Cipro] 500 mg tablet 500 mg PO Q12H Qty: 20 0RF No Action lisinopril 10 mg tablet 10 mg PO DAILY Print Language: Azeri Instructions: Colitis (ED) Referrals: Physician,Non-Staff, MD [Primary Care Provider] - 1 week
[2024-05-22 13:06] LABS: Basophils Absolute Auto 0.1 10^3/uL (0.0-0.1); Basophils Percent Auto 1.1 % (0.2-2.0); Eosinophils Absolute Auto 0.3 10^3/uL (0.0-0.7); Eosinophils Percent Auto 3.3 % (0.9-7.0); Hematocrit 42.1 % (42.0-54.0); Hemoglobin 14.6 g/dL (14.0-18.0); Immature Granulocytes Abs Auto 0.02 10^3/uL (0.00-0.03); Immature Granulocytes Pct Auto 0.2 % (0.0-0.5); Lymphocytes Percent Auto 33.4 % (20.5-60.0); Mean Corpuscular HGB Conc 34.7 g/dL (29.9-35.2); Mean Corpuscular Hemoglobin 30.7 pg (25.9-34.0); Mean Corpuscular Volume 88.4 fL (80.0-94.0); Monocytes Absolute Auto 0.5 10^3/uL (0.3-0.8); Monocytes Percent Auto 5.9 % (1.7-12.0); Neutrophils Absolute Auto 5.1 10^3/uL (1.4-6.5); Neutrophils Percent Auto 56.1 % (43.0-75.0); Platelet Count 311 10^3/uL (150-450); Red Blood Count 4.76 10^6/uL (4.70-6.10); Red Cell Distribution Width 11.4 % (11.0-15.0); White Blood Count 9.1 10^3/uL (4.0-11.0)
[2024-05-22 13:11] LABS: Bilirubin Urine NEGATIVE (NEGATIVE); Blood Urine NEGATIVE (NEGATIVE); Clarity Urine CLEAR (CLEAR); Color Urine LT. YELLOW (YELLOW); Glucose Urine UA NEGATIVE (NEGATIVE); Ketones Urine NEGATIVE (NEGATIVE); Leukocyte Esterase Urine NEGATIVE (NEGATIVE); Nitrite Urine NEGATIVE (NEGATIVE); Protein Urine NEGATIVE (NEG/TRACE); Specific Gravity Urine >=1.030 (1.005-1.025); Urobilinogen Urine 0.2 EU/dL (0.2-1.0); pH Urine 5.5 (5.0-9.0)
[2024-05-22 13:18] LABS: Anion Gap 14.4; BUN Creatinine Ratio 14.7; Calcium 9.8 mg/dL (8.5-10.1); Carbon Dioxide 25.7 mmol/L (21.0-32.0); Chloride 105 mmol/L (98-107); Estimated GFR (African America >60 (>=60 mL/min/1.73m^2); Estimated GFR (Non-African Ame >60 (>=60 mL/min/1.73m^2); Glucose 96 mg/dL (74-106); Potassium 4.1 mmol/L (3.5-5.1); Sodium 141 mmol/L (136-145)
[2024-05-22 13:22] LABS: Alanine Aminotransferase 26 U/L (16-63); Albumin Globulin Ratio 1.2; Albumin Level 4.4 g/dL (3.4-5.0); Alkaline Phosphatase 76 U/L (46-116); Amylase 73 U/L (25-115); Aspartate Amino Transferase 12 U/L (15-37); Bilirubin Direct 0.1 mg/dL (0.0-0.2); Bilirubin Total 0.5 mg/dL (0.2-1.0); Globulin 3.6 g/dL
[2024-05-22 13:23] LABS: Bacteria Urine NONE SEEN #/HPF (NONE SEEN); Mucus Urine TRACE (NONE SEEN); RBC Urine NONE SEEN #/HPF (0-2); Squamous Epithelial Cell Urine RARE #/LPF (NONE/RARE); WBC Urine NONE SEEN #/HPF (NONE SEEN)
== END 2024-05-22 15:02 | disposition home or self-care (01) ==
PROVIDERS: Emergency Provider Emergency Medicine
DX: K52.9 Noninfective gastroenteritis and colitis, unspecified (principal)
CPT/HCPCS: 36415; 71045; 74177; 80048; 80076; 81001; 82150; 83690; 85025; 99285; Q9967

== ENCOUNTER 2024-06-17 20:06 | Emergency (ER) | payer OTHER, SELFPAY ==
--- OUTSIDE RECORDS SUMMARY | 2024-06-17 20:12 | XMS_ITS | CCD ---
Author Organization [facility] CliniSyak Care Team Providers Care Library Consultant Name Role Phone Mirtha Montes Unavailable Adis Sr.Carlos Primary Care Provider Yumiko ALCANTARA, Esme Unavailable [phone] HOUSE, DR FLOWERS Primary Care Unavailable DORIS, LISA Admitting Unavailable DORIS, LISA Attending Unavailable DORIS, LISA Consulting Unavailable JOSUE, BRENTON Consulting Unavailable ADIS, DR FLOWERS Admitting Unavailable HOUSE, DR LFOWERS Attending Unavailable HOUSE, DR FLOWERS Primary Care Unavailable HOUSE, DR FLOWERS Consulting Unavailable HOUSE, DR FLOWERS Admitting Unavailable HOUSE, DR FLOWERS Attending Unavailable HOUSE, DR FLOWERS Primary Care Unavailable HOUSE, DR FLOWERS Consulting Unavailable HOUSE, DR FLOWERS Primary Care Unavailable LARON LUIS Consulting Unavailable TOBY, LARON Pike Admitting Unavailable LARON LUIS Attending Unavailable BILL GONZALEZ Consulting Unavailable House Sr., Carlos VALENZUELA Primary Care Provider Esme Hdz MD Unavailable [phone] CARLOS P Primary Care Unavailable YUMIKO, ESME Referring Unavailable LAINE HDZT Attending Unavailable HOUSE SR, CARLOS P Primary Care Unavailable FUCHS, SEME Referring Unavailable HOUSE SR, CARLOS P Primary Care Unavailable HOUSE SR, CARLOS P Primary Care Unavailable FUCHS, ESME Referring Unavailable HOUSE SR, CARLOS P Primary Care Unavailable FUCHS, ESME Referring Unavailable NO FAMILY, PHYSICIAN Primary Care Provider Unava ilable CHILO Ojeda Attending Provider [phone] NO FAMILY, PHYSICIAN Primary Care Unavailable Teresa Ojeda Attending Unavailable Teresa Ojeda Admitting Unavailable Allergies Allergy Classification Reported Allergen(s) Allergy Type Date of Onset Reaction(s) Facility (3 sources) Penicillin G Drug Allergy 12-29-19 Unknown, Unknown Reaction [facility] (11 sources) diphenhydrAMINE; Translations: [DIPHENHYDRAMINE] Drug Allergy 01-12-20 Rash, Itching [facility] (9 sources) Penicillins; Translations: [PENICILLINS] Propensity to adverse reactions 09-11-19 05 Hives [facility] (1 source) Penicillins Drug allergy (disorder) 12-17-19 13 [facility] (1 source) Sulfonamides (Antibiotic) Drug allergy (disorder) [facility] (1 source) diphenhydrAMINE Drug Allergy 12-29-19 [facility] (1 source) Penicillin Drug Allergy 12-29-19 [facility] Medications Current Medications Medication Drug Class(es) Dates Sig (Normalized) Sig (Original) famotidine 20 mg oral tablet (7 sources) Histamine-2 Receptor Antagonist Start: 06-14-2022 take 1 tablet by mouth every twelve hours as needed famotidine (PEPCID) 20 mg tablet Take 20 mg by mouth twice daily as needed. 0 06/14/2022 Active Comment on above: Take 20 mg by mouth twice daily as needed. lisinopril 10 mg oral tablet (12 sources) Angiotensin Converting Enzyme Inhibitor Start: 12-29-2023 Lisinopril Active MG PO December 29, 2023 12:00am Start: 10-06-2020 End: 11-01-2023 take 1 tablet by mouth once daily lisinopril (ZESTRIL) 10 mg tablet Take 1 tablet by mouth once daily. 90 tablet 3 11/01/2023 Active Lisinopril Activ e Comment on above: Take 10 mg by mouth once daily. naproxen sodium 550 mg oral tablet (1 source) Nonsteroidal Anti-inflammatory Drug Start: 04-12-2021 take 1 tablet by mouth every twelve hours at mealtime as needed Naproxen Sodium 550 MG 1 tablet with food or milk as needed Orally every 12 hrs for 7 days Mar, Active Completed/Discontinued Medications Medication Drug Class(es) Dates Sig (Normalized) Sig (Original) ibuprofen 200 mg oral tablet (7 sources) Nonsteroidal Anti-inflammatory Drug End: 11-01-2023 take 1 tablet by mouth every six hours as needed ibuprofen (MOTRIN) 200 mg tablet Take 200 mg by mouth every 6 hours as needed. 0 11/01/2023 Discontinued (Other) Comment on above: Take 200 mg by mouth every 6 hours as needed. iv contrast (will be provided with radiology test) (7 sources) Start: 07-01-2022 End: 11-01-2023 iv contrast (will be provided with radiology test) MRI Cardiac w/Qflow Inject, intravenously, once for 1 dose. No IV access, insert saline lock prior to the beginning of sedation, infusion, injection of imaging exam. Discontinue saline lock post exam. If Pt has a central line or IVAD, may access for administration according to line specific nursing protocol. Once exam is complete flush line and de-access according to line specific nursing protocol in the MR contrast administration guidelines link 1 Each 0 07/01/2022 11/01/2023 Discontinued (Other) Start: 07-01-2022 iv contrast (w ill be provided with radiology test) MRI Cardiac w/Qflow Inject, intravenously, once for 1 dose. No IV access, insert saline lock prior to the beginning of sedation, infusion, injection of imaging exam. Discontinue saline lock post exam. If Pt has a central line or IVAD, may access for administration according to line specific nursing protocol. Once exam is complete flush line and de-access according to line specific nursing protocol in the MR contrast administration guidelines link 1 Each 0 07/01/2022 Active Comment on above: MRI Cardiac w/Qflow Inject, intravenously, once for 1 dose. No IV access, insert saline lock prior to the beginning of sedation, infusion, injection of imaging exam. Discontinue saline lock post exam. If Pt has a central line or IVAD, may access for administration according to line specific nursing protocol. Once exam is complete flush line and de-access according to line specific nursing protocol in the MR contrast administration guidelines link perflutren lipid microspheres 1.3 mL in NaCl (PF) 0.9% 10 mL injection (DEFINITY) (8 sources) Start: 09-05-2022 End: 11-01-2023 perflutren lipid microspheres 1.3 mL in NaCl (PF) 0.9% 10 mL injection (DEFINITY) Start: 09-05-2022 End: 12-05-2023 perflutren lipid microsphere s 1.3 mL in NaCl (PF) 0.9% 10 mL injection (DEFINITY) Start: 05-30-2022 End: 08-29-2023 perflutren lipid microsphere s 1.3 mL in NaCl (PF) 0.9% 10 mL injection (DEFINITY) Start: 08-20-2021 End: 11-19-2022 perflutren lipid microsphere s 1.3 mL in NaCl (PF) 0.9% 10 mL injection (DEFINITY) 125 ml sodium chloride 9 mg/ml prefilled syringe (8 sources) Start: 08-20-2021 End: 12-05-2023 sodium chloride 0.9 % (flush) 10 mL (BD POSIFLUSH) traMADol hydrochloride 50 mg oral tablet (9 sources) Opioid Agonist Start: 09-12-2016 End: 11-01-2023 take 1 tablet by mouth every twelve hours as needed traMADol (ULTRAM) 50 mg tablet Take 1 tablet by mouth every 12 hours as needed. 30 tablet 0 09/12/2016 11/01/2023 Discontinued (Other) traMADol HCl Act mik Comment on above: Take 1 tablet by zechariah th every 12 hours as needed. Problems Active Problems Problem Classification Problem Date Documented Date Episodic/Chronic Cardiac and circulatory congenital anomalies (16 sources) Myxoid transformation of tricuspid valve; Translations: [Other specified congenital malformations of heart] Onset: 04-15-2005 Resolved: 08-01-2016 08-02-2016 Chronic Essential hypertension (12 sources) Hypertensive disorder; Translations: [Essential (primary) hypertension] 10-15-2020 Chronic Other injuries and conditions due to external causes (2 sources) Injury of forearm; Translations: [Unspecified injury of right forearm, initial encounter] 12-29-2023 Episodic Other injuries and conditions due to external causes (1 source) Unspecified injury of right forearm, initial encounter; Translations: [Unspecified injury of right forearm, initial encounter] Onset: 12-29-2023 Episodic Other nutritional; endocrine; and metabolic disorders (2 sources) Obese class I; Translations: [Obesity, unspecified] Onset: 11-05-2023 11-05-2023 Chronic Jeanie-; endo-; and myocarditis; cardiomyopathy (except that caused by tuberculosis or sexually transmitted disease) (2 sources) Cardiomyopathy; Translations: [Cardiomyopathy, unspecified] Chronic Residual codes; unclassified (11 sources) History of tricuspid valve repair; Translations: [Other specified postprocedural states] Onset: 08-19-2016 Episodic Substance-related disorders (1 source) Nicotine dependence, cigarettes, uncomplicated; Translations: [NICOTINE DEPEND CIGARETTES UNCOMP] Onset: 06-28-2022 Chronic Superficial injury; contusion (3 sources) Contusion of right hand; Translations: [Contusion of right hand, initial encounter] 12-29-2023 Episodic Unclassified (8 sources) SUMMARY Onset: 07-29-2016 08-02-2016 Unclassified (3 sources) CONTACT W/AND (SUSP) EXPOS COVID-19; Translations: [CONTACT W/AND (SUSP) EXPOS COVID-19] Onset: 08-23-2021 Viral infection (1 source) COVID-19; Translations: [COVID-19] Onset: 01-06-2022 Past or Other Problems Problem Classification Problem Date Documented Date Episodic/Chronic Administrative/social admission (8 sources) Discharge status; Translations: [Encounter for administrative examinations, unspecified] Onset: 08-01-2016 08-02-2016 Episodic Anxiety disorders (1 source) Anxiety; Translations: [Anxiety disorder, unspecified] Onset: 07-30-2016 Resolved: 08-01-2016 08-01-2016 Chronic Cardiac dysrhythmias (1 source) Palpitations; Translations: [Palpitations] Onset: 05-11-2006 Resolved: 10-16-2008 10-16-2008 Episodic Fracture of upper limb (1 source) Displaced fracture of middle phalanx of unspecified finger, initial encounter for closed fracture; Translations: [Fracture of middle phalanx of finger of right hand S62.629A] Onset: 04-12-2021 Resolved: 04-12-2021 Episodic Nonspecific chest pain (13 sources) Chest pain; Translations: [Other chest pain] Onset: 05-07-2020 05-07-2020 Episodic Other aftercare (1 source) Other correction (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 therapy; Translations: [OTH JAIL CURRENT DRUG THERAPY] Onset: 12-20-2021 Episodic Other injuries and conditions due to external causes (1 source) Unspecified injury of right wrist, hand and finger(s), initial encounter; Translations: [Injury of right hand, initial encounter S69.91XA] Onset: 04-12-2021 Resolved: 04-12-2021 Episodic Other nervous system disorders (8 sources) Acute postoperative pain; Translations: [Other acute postprocedural pain] Onset: 07-30-2016 08-02-2016 Episodic Residual codes; unclassified (1 source) Other specified postprocedural states; Translations: [OTH SPECIFIED POSTPROCEDURAL STATES] Onset: 12-20-2021 Episodic Unclassified (1 source) CONTACT W/AND (SUSP) EXPOS COVID-19; Translations: [CONTACT W/AND (SUSP) EXPOS COVID-19] Onset: 01-04-2022 Results Test Name Value Interpretation Reference Range Facility XR forearm RT 2V*on 12-29-19 24 XR forearm RT 2V* [address] [address] XRay Report Signed Patient: Allie Funes MR#: [id number] : 1990 Acct:[id number] Age/Sex: 33 / M ADM Date: 12/29/23 Loc: [facility] Room: Type: [facility] Attending Dr: Teresa Ojeda APRN Copies to: Teresa Ojeda APRN Ordering Provider: Teresa Ojeda APRN Date of Service: 12/29/23 XR/XR forearm RT 2V*: RIGHT ARM PAIN 2 views RIGHT plain film COMPARISON: None HISTORY: RIGHT hand injury. The mid forearm pain. ACUTE FINDINGS: None DEGENERATIVE CHANGE: Unremarkable SOFT TISSUE FINDINGS: Unremarkable JOINT EFFUSION: None POSTOP CHANGES: None BONY MINERALIZATION: Adequate XR/XR forearm RT 2V* IMPRESSION: No acute findings. Impression dictated by: Zachary Castle M.D.12/29/2023 1:41 PM Dictation Location: [place] [address] Transcribed By: [facility] 12/29/23 1341 Dictated By: Zachary Castle DO 12/29/23 1339 Signed By: 12/29/23 1341 Normal [facility] XR hand RT min 3V*on 024 XR hand RT min 3V* [address] [address] XRay Report Signed Patient: Allie Funes MR#: [id number] : 1990 Acct:[id number] Age/Sex: 33 / M ADM Date: 12/29/23 Loc: [facility] Room: Type: [facility] Attending Dr: Teresa Ojeda APRN Copies to: Teresa Ojeda APRN Ordering Provider: Teresa Ojeda APRN Date of Service: 12/29/23 XR/XR hand RT min 3V*: RIGHT HAND PAIN 3 views RIGHT hand plain film COMPARISON: 04/12/21 HISTORY: RIGHT hand injury. Punched wall. ACUTE FINDINGS: No acute fracture. Chronic deformity of the 5th metacarpal consistent with old healed fracture. DEGENERATIVE CHANGE: Unremarkable SOFT TISSUE FINDINGS: Unremarkable JOINT EFFUSION: None POSTOP CHANGES: None BONY MINERALIZATION: Adequate XR/XR hand RT min 3V* IMPRESSION: No acute findings Impression dictated by: Zachary Castle M.D.12/29/2023 1:38 PM Dictation Location: [place] [address] Transcribed By: [facility] 12/29/23 1338 Dictated By: Zachary Castle DO 12/29/23 1335 Signed By: 12/29/23 1338 Normal [facility] ECHO SPECIALIST COMPLEX ADUL T CONGENITALon 11-05-2023 Echocardiography Report: 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 ALLIE FUNES : 1990 Age: 33 years Gender: M History of hypertension, congenital heart disease and valvular heart disease. Previous cardiovascular interventions: Tricuspid valve repair (07/2016) Primary rhythm: sinus. Height: 188.00 cm BSA: 2.32 m Weight: 103.42 kg BMI: 29.3 kg/m Heart rate 86 bpm Blood pressure 131/63 mmHg Color Doppler was utilized to interrogate the cardiac valves assessed and spectral Doppler was utilized to determine the flow velocities and pressure gradients reported in this exam. Myocardial strain analysis was performed in this exam to aid in the assessment of cardiac function. MEASUREMENTS: Value Indexed Normal Max aortic dimension 3.3 cm Ao < 3.8 Left atrial volume 45 ml (biplane A-L) 19 ml/m Michelle <= 34 LV ID (diastole) 5.3 cm (2D) 2.28 cm/m LV ID (systole) 4.1 cm (2D) 1.75 cm/m IVS, leaflet tips 1.0 cm (2D) Posterior wall thickness 0.9 cm (2D) Left ventricular mass 191 g (2D) 82 g/m LV stroke volume 56 ml (2D biplane) LV end diastolic volume 98 ml (2D biplane) 42.2 ml/m 34<=EDVi<75 LV end systolic volume 42 ml (2D biplane) 18.1 ml/m Ejection Fraction 57 % (2D biplane) EF > 52 FINDINGS: LEFT VENTRICLE The left ventricle is normal in size. Left ventricular systolic function is normal. Normal left ventricular diastolic function. Mitral annular lateral E/e': 4.5. Mitral annular septal E/e': 8.3. Wall Motion: All scored segments are normal. RIGHT VENTRICLE The right ventricle is mildly dilated. Right ventricular systolic function is low normal. RV systolic tissue Doppler velocity is 6.0 cm/s. Tricuspid annular displacement is 1.1 cm. RV global longitudinal strain is -11.8 %. RV free wall strain is -9.7 %. Estimated right ventricular systolic pressure is 28 mmHg consistent with normal pulmonary artery pressures. Estimated right atrial pressure is 3 mmHg based on IVC assessment. LEFT ATRIUM The left atrial cavity is normal in size. RIGHT ATRIUM The right atrial cavity is normal in size. The coronary sinus appears dilated. Inferior Vena Cava: The inferior vena cava appears normal measuring 1.6 cm. The vessel decreases greater than 50 percent with inspiration. MITRAL VALVE There is trace mitral valve regurgitation. There is no thickening. The pressure half time is 67 msec. The peak mitral E/A ratio is 0.70. The average mitral E/e' ratio is 6.4. The mitral flow deceleration time is 233 msec. TRICUSPID VALVE Post tricuspid valve repair. Tricuspid valve annuloplasty ring size #34. There is mild (1+ - 2+) tricuspid valve regurgitation. The mean tricuspid gradient is 4 mmHg. AORTIC VALVE There is trace aortic valve regurgitation. Tricuspid aortic valve. There is no thickening. The peak gradient is 7 mmHg (peak velocity = 133.1 cm/s). PULMONIC VALVE There is trace pulmonic valve regurgitation. There is no thickening. The peak gradient is 6 mmHg. AORTA The visualized aorta is normal in size. Measurements - Sinus: 3.3 cm. Mid ascending aorta 3.0 cm. INTERATRIAL SEPTUM The interatrial septum is mobile. INTERVENTRICULAR SEPTUM There is abnormal motion of the interventricular septum secondary to prior cardiac surgery. PERICARDIUM There is no pericardial effusion. 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 - The left ventricle is normal in size. Left ventricular systolic function is normal. EF = 57 5% (2D biplane) Normal left ventricular diastolic function. - The right ventricle is mildly dilated. Right ventricular systolic function is low normal. - Post tricuspid valve repair. tricuspid valve annuloplasty ring (size #34). There is mild (1+ - 2+) tricuspid valve regurgitation. The peak gradient is 8 mmHg and the mean gradient is 4 mmHg. - Estimated right ventricular systolic pressure is 28 mmHg consistent with normal pulmonary artery pressures. Estimated right atrial pressure is 3 mmHg based on IVC assessment. - Exam was compared with the prior echocardiographic exam performed on 10/20/2022. Slightly less tricuspid regurgitation noted today. Otherwise similar findings. * (more content not included)... [facility] CBC panel Auto (Bld)on 10-31 Erythrocyte distribution width (RBC) [Ratio] 11.8 % Normal 11.5-15.0 [facility] Comment on above: Order Comment: Speci men Type: BLOOD SPECIMEN Ordering Facility: [facility] Address: [address] [place] [address] Performed By: #### 5 8410-2 #### [facility] CLIA [id number] [address] [place] [address] [place] [address] [place] Hematocrit (Bld) [Volume fraction] 41.7 % Normal 39.0-51.0 [facility] Comment on above: Order Comment: Speci men Type: BLOOD SPECIMEN Ordering Facility: [facility] Address: [address] [place] [address] Performed By: #### 5 8410-2 #### [facility] CLIA [id number] [address] [place] [address] [place] Hemoglobin (Bld) [Mass/Vol] 14.5 g/dL Normal 13.0-17.0 [facility] Comment on above: Order Comment: Speci men Type: BLOOD SPECIMEN Ordering Facility: [facility] Address: [address] [place] [address] Performed By: #### 5 8410-2 #### [facility] CLIA [id number] [address] [place] [address] [place] MCH (RBC) [Entitic mass] 30.3 pg Normal 26.0-34.0 [facility] Comment on above: Order Comment: Speci men Type: BLOOD SPECIMEN Ordering Facility: [facility] Address: [address] [place] [address] Performed By: #### 5 8410-2 #### [facility] CLIA [id number] [address] [place] [address] [place] MCHC (RBC) [Mass/Vol] 34.8 g/dL Normal 30.5-36.0 [facility] Comment on above: Order Comment: Speci men Type: BLOOD SPECIMEN Ordering Facility: [facility] Address: [address] [place] [address] Performed By: #### 5 8410-2 #### [facility] CLIA [id number] [address] [place] [address] [place] MCV (RBC) [Entitic vol] 87.2 fL Normal 80.0-100.0 [facility] Comment on above: Order Comment: Speci men Type: BLOOD SPECIMEN Ordering Facility: [facility] Address: [address] [place] [address] Performed By: #### 5 8410-2 #### [facility] CLIA [id number] [address] [place] [address] [place] Nucleated RBC (Bld) [#/Vol] 10*3/uL Normal <0.01 [facility] Comment on above: Order Comment: Speci men Type: BLOOD SPECIMEN Ordering Facility: [facility] Address: [address] [place] [address] Performed By: #### 5 8410-2 #### [facility] CLIA [id number] [address] [place] [address] [place] Platelet mean volume (Bld) [Entitic vol] 10.3 fL Normal 9.0-12.7 [facility] Comment on above: Order Comment: Speci men Type: BLOOD SPECIMEN Ordering Facility: [facility] Address: [address] [place] [address] Performed By: #### 5 8410-2 #### [facility] CLIA [id number] [address] [place] [address] [place] Platelets (Bld) [#/Vol] 295 10*3/uL Normal 150-400 [facility] Comment on above: Order Comment: Speci men Type: BLOOD SPECIMEN Ordering Facility: [facility] Address: [address] [place] [address] Performed By: #### 5 8410-2 #### [facility] CLIA [id number] [address] [place] [address] [place] RBC (Bld) [#/Vol] 4.78 10*6/uL Normal 4.20-6.00 [facility] Comment on above: Order Comment: Speci men Type: BLOOD SPECIMEN Ordering Facility: [facility] Address: [address] [place] [address] Performed By: #### 5 8410-2 #### [facility] CLIA [id number] [address] [place] [address] [place] WBC (Bld) [#/Vol] 7.94 10*3/uL Normal 3.70-11.00 [facility] Comment on above: Order Comment: Speci men Type: BLOOD SPECIMEN Ordering Facility: [facility] Address: [address] [place] [address] Performed By: #### 5 8410-2 #### [facility] CLIA [id number] [address] [place] [address] [id number] [place] [address] OF [facility] CNOVon 11-01-2023 CNOV Office Visit ([facility] ) ALLIE FUNES ([id number]) 1990 M Date Time Provider Department 11/01/23 2:15 PM ESME HDZ [facility] During your visit today, we recorded the following information about you: Pulse Blood pressure Weight 92/minute 128/86 107.7 kg Esme Hdz MD 11/05/2023 4:22 PM [facility] OUTPATIENT VISIT DATE November 01, 2023 OUTPATIENT VISIT TYPE ESTABLISHED PRIMARY CARE PHYSICIAN: Carlos Arceo Sr. [address] [place] [address] CHIEF COMPLAINT: Follow up CONGENITAL CARDIAC HISTORY: Tricuspid valve dysplasia Diagnosed age 14 after chest pain led to cardiac testing Developed severe RV dilation and severe tricuspid regurgitation 07/29/16, TV repair (commissurotomy of all three commissures, papillary muscle mobilization, septal chordal ligation, 34 mm Lizett ring), Dr. Medina Intraoperative inspection: This is confirmed on exploration that this is not Ebstein's anomaly. There is no displacement of the septal leaflet. The annulus is severely dilated and all 3 leaflets are severely dysplastic. There is also lots of fenestrations in both the posterior and anterior leaflets. The valve is, however, amenable to homemade repair. Hypertension - Lisinopril 10 mg QD Recurrent chest pain episodes since surgery Anxiety/panic attacks INTERVAL HISTORY: Mr. Funes presents for follow up evaluation. I last saw him 09/2022. Since then he has largely been well and has been working on lifestyle changes. He has quit smoking and drinking (!) though is vaping. 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 He has gained some weight after quitting smoking - eating more and less active now at work. He quit the tramadol he was taking chronically (prescribed by his PCP) last week. He thinks he may have had mild withdrawal but is doing well now. Unfortunately he lost his mother recently - she had been complaining of neck pain for a few days and had a cardiac arrest at the hospital - autopsy with acute left circumflex occlusion. Mr. Funes was very close to his mom and is understandably still processing this loss. PAST MEDICAL HISTORY Diagnosis Date Hypertension Tricuspid leaflet abnormality Tricuspid regurgitation PAST SURGICAL HISTORY Procedure Laterality Date HEART CATHETERIZATION 02/2016 at [facility] HEART SURGERY HX 07/29/2016 s/p sternotomy, TV commissuroplasty, mobilization of anterior papillary muscles, dividing of chords, and insertion of CC annuloplasty ring #34 TONSILLECTOMY HX Social History Tobacco Use Smoking status: Former Packs/day: 0.25 Years: 7.00 Additional pack years: 0.00 Total pack years: 1.75 Types: Cigarettes Start date: 05/09/2011 Quit date: 03/25/2023 Years since quittin.6 Smokeless tobacco: Never Vaping Use Vaping Use: Some days Substances: Flavoring Substance Use Topics Alcohol use: Yes Comment: Social Drug use: No FAMILY HISTORY Problem Relation Age of Onset Hypertension Mother Hypertension Father Two kids, age 2 AND 5 (in 2023) healthy ALLERGIES Allergen Reactions Benedryl [Diphenhyd* Rash, Itching Penicillins Hives MEDICATIONS: famotidine (PEPCID) 20 mg tablet Take 20 mg by mouth twice daily as needed. lisinopril (ZESTRIL) 10 mg tablet Take 1 tablet by mouth once daily. REVIEW OF SYSTEMS: positives in bold GENERAL: Negative for: Weight loss or gain, Fever or Chills, Weakness and Sleep difficulties. HEENT: Negative for: Headache, Impaired Vision, Glasses, Hearing Impairment, Ringing in Ears, Nosebleeds, Poor Dental Care, Bleeding Gums and Dentures. NECK: Negative for: Swelling, Pain, Stiffness RESPIRATORY: Negative for: Cough, Blood in Sputum, Shortness of breath, Wheezing, Apnea GASTROINTESTINAL: Negative for: Trouble swallowing, Heartburn, Change in bowel habits, Blood in stool, Dark black stools MUSCULOSKELETAL: Negtive for: Muscle or joint pain, stiffness, Joint swelling NEUROLOGIC/PSYCHIATRI C: Negative for: Weakness, Paralysis, Numbness, Tingling, Tremor, Nervousness or anxiety, Depressed mood, Memory loss SKIN: Negative for: Rash, Itching HEMATOLOGICAL/LYMPHAT IC: Negative for: Easy bruising, Easy bleeding ENDOCRINE: Negative for: Heat or Cold Intolerance, Excessive Sweating, Frequent Urination, Frequent Thirst PHYSICAL EXAMINATION: BP 128/86 (BP Site: Right Arm) Pulse 92 Wt 107.7 kg (237 lb 6.4 oz) SpO2 95% BMI 30.48 kg/m? General: Well appearing, in no acute distress. Skin: No clubbing, no cyanosis. Eyes: Extra ocular movements intact Neck: No jugular venous distention, carotids have a normal upstroke. Lungs: Clear to auscultation bilaterally, no wheezing or rhonchi. H (more content not included)... Normal [facility] Comprehensive metabolic 2000 panelon 11-01-2023 Albumin [Mass/Vol] 4.6 g/dL Normal 3.9-4.9 [facility] Comment on above: Order Comment: Speci men Type: BLOOD SPECIMEN Ordering Facility: [facility] Address: [address] [place] [address] Performed By: #### L MADYSON, 30440-3, 75821-4 #### [facility] CLIA [id number] [address] [place], [place] [address] [place] [address] [place] ALP [Catalytic activity/Vol] 83 U/L Normal 38-113 [facility] Comment on above: Order Comment: Speci men Type: BLOOD SPECIMEN Ordering Facility: [facility] Address: [address] [place] [address] Performed By: #### L MADYSON, 74464-0, 63512-8 #### [facility] CLIA [id number] [address] [place] [address] [place] ALT [Catalytic activity/Vol] 21 U/L Normal 10-54 [facility] Comment on above: Order Comment: Speci men Type: BLOOD SPECIMEN Ordering Facility: [facility] Address: [address] [place] [address] Performed By: #### L IPNF, 68699-9, 38410-7 #### [facility] CLIA [id number] [address] [place] [address] [place] Anion gap [Moles/Vol] 14 mmol/L Normal 9-18 [facility] Comment on above: Order Comment: Speci men Type: BLOOD SPECIMEN Ordering Facility: [facility] Address: [address] [place] [address] Performed By: #### L IPNF, 08784-0, 22308-8 #### [facility] CLIA [id number] [address] [place] [address] [place] AST [Catalytic activity/Vol] 15 U/L Normal 14-40 [facility] Comment on above: Order Comment: Speci men Type: BLOOD SPECIMEN Ordering Facility: [facility] Address: [address] [place] [address] Performed By: #### L IPNF, 33092-7, 96901-9 #### [facility] CLIA [id number] [address] [place] [address] [place] Bilirubin [Mass/Vol] 0.8 mg/dL Normal 0.2-1.3 [facility] Comment on above: Order Comment: Speci men Type: BLOOD SPECIMEN Ordering Facility: [facility] Address: [address] [place] [address] Performed By: #### L IPNF, 45147-8, 76619-0 #### [facility] CLIA [id number] [address] [place] [address] [place] Calcium [Mass/Vol] 9.9 mg/dL Normal 8.5-10.2 [facility] Comment on above: Order Comment: Speci men Type: BLOOD SPECIMEN Ordering Facility: [facility] Address: [address] [place] [address] Performed By: #### L IPNF, 87553-1, 51713-7 #### [facility] CLIA [id number] [address] [place] [address] [place] Chloride [Moles/Vol] 103 mmol/L Normal 97-105 [facility] Comment on above: Order Comment: Speci men Type: BLOOD SPECIMEN Ordering Facility: [facility] Address: [address] [place] [address] Performed By: #### L IPNF, 00686-7, 97672-8 #### [facility] CLIA [id number] [address] [place] [address] [place] CO2 [Moles/Vol] 21 mmol/L Low 22-30 [facility] Comment on above: Order Comment: Speci men Type: BLOOD SPECIMEN Ordering Facility: [facility] Address: [address] [place] [address] Performed By: #### L IPNF, 50538-6, 53252-7 #### [facility] CLIA [id number] [address] [place] [address] [place] Creatinine [Mass/Vol] 0.99 mg/dL Normal 0.73-1.22 [facility] Comment on above: Order Comment: Speci men Type: BLOOD SPECIMEN Ordering Facility: [facility] Address: [address] [place] [address] Performed By: #### L IPNF, 81175-7, 65020-9 #### [facility] CLIA [id number] [address] [place] [address] [place] Creatinine and Glomerular filtration rate.predicted panel (S/P/Bld) 103 mL/min/1.73m??? Normal >=60 [facility] Comment on above: Order Comment: Speci men Type: BLOOD SPECIMEN Ordering Facility: [facility] Address: [address] [place] [address] Result Comment: Sonja mated Glomerular Filtration Rate (eGFR) is calculated using the 2020 CKD-EPI creatinine equation. This equation utilizes serum creatinine, sex, and age as parameters. The creatinine assay has traceable calibration to isotope dilution-mass spectrometry. Refer to KDIGO guidelines for clinical interpretation. In patients with unstable renal function, e.g. those with acute kidney injury, the eGFR may not accurately reflect actual GFR. Performed By: #### L IPNF, 96119-8, 67601-1 #### [facility] CLIA [id number] [address] [place] [address] [place] Glucose [Mass/Vol] 96 mg/dL Normal 74-99 [facility] Comment on above: Order Comment: Ana ayoub Type: BLOOD SPECIMEN Ordering Facility: [facility] Address: [address] [place] [address] Result Comment: The [place] Diabetes Association (ADA) provides guidance for cutoff values for fasting glucose and random glucose. The ADA defines fasting as no caloric intake for at least 8 hours. Fasting plasma glucose results between 100 to 125 mg/dL indicate increased risk for diabetes (prediabetes). Fasting plasma glucose results greater than or equal to 126 mg/dL meet the criteria for diagnosis of diabetes. In the absence of unequivocal hyperglycemia, results should be confirmed by repeat testing. In a patient with classic symptoms of hyperglycemia or hyperglycemic crisis, random plasma glucose results greater than or equal to 200 mg/dL meet the criteria for diagnosis of diabetes. Reference: Standards of Medical Care in Diabetes 2016, [place] Diabetes Association. Diabetes Care. 2016.39(Suppl 1). Performed By: #### L IPNF, 56306-3, 53440-8 #### [facility] CLIA [id number] [address] [place] [address] [place] Potassium [Moles/Vol] 4.1 mmol/L Normal 3.7-5.1 [facility] Comment on above: Order Comment: Ana ayoub Type: BLOOD SPECIMEN Ordering Facility: [facility] Address: [address] [place] [address] Performed By: #### L IPNF, 85819-6, 80937-4 #### [facility] CLIA [id number] [address] [place] [address] [place] Protein [Mass/Vol] 7.5 g/dL Normal 6.3-8.0 [facility] Comment on above: Order Comment: Speci men Type: BLOOD SPECIMEN Ordering Facility: [facility] Address: [address] [place] [address] Performed By: #### L IPNF, 39625-1, 32817-4 #### [facility] CLIA [id number] [address] [place] [address] [place] Sodium [Moles/Vol] 138 mmol/L Normal 136-144 [facility] Comment on above: Order Comment: Speci men Type: BLOOD SPECIMEN Ordering Facility: [facility] Address: [address] [place] [address] Performed By: #### L IPNF, 27404-7, 44167-8 #### [facility] CLIA [id number] [address] [place] [address] [place] Urea nitrogen [Mass/Vol] 18 mg/dL Normal 9-24 [facility] Comment on above: Order Comment: Speci men Type: BLOOD SPECIMEN Ordering Facility: [facility] Address: [address] [place] [address] Performed By: #### L IPNF, 39216-6, 64415-8 #### [facility] CLIA [id number] [address] [place] [address] [place] ECG COMPLETEon 11-01-2023 ECG COMPLETE Ventricular Rate : 9 0 BPM Atrial Rate : 90 BPM P-R Interval : 146 ms QRS Duration : 160 ms Q-T Interval : 400 ms QTC Calculation(Bazett) : 489 ms Calculated P Essex : 36 degrees Calculated R Essex : 68 degrees Calculated T Essex : 17 degrees NORMAL SINUS RHYTHM COMPLETE RIGHT BUNDLE BRANCH BLOCK ABNORMAL ECG Confirmed by ASHLEY PAIZ MD ([id number]) on 11/03/2023 11:00:39 PM NAME : ALLIE FUNES PID : [id number] : 1990 Gender : Male Race : ORD : [id number] Procedure Date : Nov 01 2023 10:22:27 Edit Date : Nov 03 2023 23:00:45 Diagnosis: NORMAL SINUS RHYTHM COMPLETE RIGHT BUNDLE BRANCH BLOCK ABNORMAL ECG Confirmed by ASHLEY PAIZ MD ([id number]) on 11/03/2023 11:00:39 PM Test Reason : Location : 314 : J14 J14 Overread By : ASHLEY PAIZ MD Edited By : ASHLEY PAIZ MD Referred By : ESME HDZ Acquired by : GINA MUNROE [facility] ECHOACHDon 11-01-2023 ECHOACHD Echocardiography Report: 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 ALLIE FUNES : 1990 Age: 33 years Gender: M History of hypertension, congenital heart disease and valvular heart disease. Previous cardiovascular interventions: Tricuspid valve repair (07/2016) Primary rhythm: sinus. Height: 188.00 cm BSA: 2.32 m Weight: 103.42 kg BMI: 29.3 kg/m Heart rate 86 bpm Blood pressure 131/63 mmHg Color Doppler was utilized to interrogate the cardiac valves assessed and spectral Doppler was utilized to determine the flow velocities and pressure gradients reported in this exam. Myocardial strain analysis was performed in this exam to aid in the assessment of cardiac function. MEASUREMENTS: Value Indexed Normal Max aortic dimension 3.3 cm Ao < 3.8 Left atrial volume 45 ml (biplane A-L) 19 ml/m Michelle <= 34 LV ID (diastole) 5.3 cm (2D) 2.28 cm/m LV ID (systole) 4.1 cm (2D) 1.75 cm/m IVS, leaflet tips 1.0 cm (2D) Posterior wall thickness 0.9 cm (2D) Left ventricular mass 191 g (2D) 82 g/m LV stroke volume 56 ml (2D biplane) LV end diastolic volume 98 ml (2D biplane) 42.2 ml/m 34<=EDVi<75 LV end systolic volume 42 ml (2D biplane) 18.1 ml/m Ejection Fraction 57 % (2D biplane) EF > 52 FINDINGS: LEFT VENTRICLE The left ventricle is normal in size. Left ventricular systolic function is normal. Normal left ventricular diastolic function. Mitral annular lateral E/e': 4.5. Mitral annular septal E/e': 8.3. Wall Motion: All scored segments are normal. RIGHT VENTRICLE The right ventricle is mildly dilated. Right ventricular systolic function is low normal. RV systolic tissue Doppler velocity is 6.0 cm/s. Tricuspid annular displacement is 1.1 cm. RV global longitudinal strain is -11.8 %. RV free wall strain is -9.7 %. Estimated right ventricular systolic pressure is 28 mmHg consistent with normal pulmonary artery pressures. Estimated right atrial pressure is 3 mmHg based on IVC assessment. LEFT ATRIUM The left atrial cavity is normal in size. RIGHT ATRIUM The right atrial cavity is normal in size. The coronary sinus appears dilated. Inferior Vena Cava: The inferior vena cava appears normal measuring 1.6 cm. The vessel decreases greater than 50 percent with inspiration. MITRAL VALVE There is trace mitral valve regurgitation. There is no thickening. The pressure half time is 67 msec. The peak mitral E/A ratio is 0.70. The average mitral E/e' ratio is 6.4. The mitral flow deceleration time is 233 msec. TRICUSPID VALVE Post tricuspid valve repair. Tricuspid valve annuloplasty ring size #34. There is mild (1+ - 2+) tricuspid valve regurgitation. The mean tricuspid gradient is 4 mmHg. AORTIC VALVE There is trace aortic valve regurgitation. Tricuspid aortic valve. There is no thickening. The peak gradient is 7 mmHg (peak velocity = 133.1 cm/s). PULMONIC VALVE There is trace pulmonic valve regurgitation. There is no thickening. The peak gradient is 6 mmHg. AORTA The visualized aorta is normal in size. Measurements - Sinus: 3.3 cm. Mid ascending aorta 3.0 cm. INTERATRIAL SEPTUM The interatrial septum is mobile. INTERVENTRICULAR SEPTUM There is abnormal motion of the interventricular septum secondary to prior cardiac surgery. PERICARDIUM There is no pericardial effusion. 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 - The left ventricle is normal in size. Left ventricular systolic function is normal. EF = 57 5% (2D biplane) Normal left ventricular diastolic function. - The right ventricle is mildly dilated. Right ventricular systolic function is low normal. - Post tricuspid valve repair. tricuspid valve annuloplasty ring (size #34). There is mild (1+ - 2+) tricuspid valve regurgitation. The peak gradient is 8 mmHg and the mean gradient is 4 mmHg. - Estimated right ventricular systolic pressure is 28 mmHg consistent with normal pulmonary artery pressures. Estimated right atrial pressure is 3 mmHg based on IVC assessment. - Exam was compared with the prior echocardiographic exam performed on 10/20/2022. Slightly less tricuspid regurgitation noted today. Otherwise similar findings. Final [employer] Medical Image : [id number] See Link below for Image Normal [facility] EXERCISE STRESS ECG METABOLI C (WITHOUT IMAGING)on 11-01-2023 EXERCISE STRESS ECG METABOLIC (WITHOUT IMAGING) Stress ECG Report: Exercise Stress ECG Metabolic (without Imaging) 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 ALLIE FUNES Age: 33 years Gender: M History of hypertension, congenital heart disease and valvular heart disease. Height: 187.96 cm BSA: 2.38 m Weight: 108.09 kg BMI: 30.6 kg/m Indication: Congenital anomaly of heart, S/P valve replacement / repair and Dyspnea on exertion Metabolic Exercise Test Interpretation: - EXERCISE RESPONSE: Maximal aerobic effort (pRER). Mildly abnormal aerobic capacity (pVO2). Abnormal circulatory limitation pattern. - CARDIOVASCULAR RESPONSE: Abnormal stroke volume response (pVO2/HR). Normal heart rate response (pHR). Abnormal chronotropic index (CI). Resting hypertension and Normal BP response (pBP). Arrhythmias: No arrhythmias . ST segment and T-wave changes: No ST changes. - PULMONARY RESPONSE: There was no clinically significant oxygen desaturation during exercise (SpO2). Normal ventilatory reserve (pVE). Normal ventilatory pattern. Mildly abnormal ventilatory efficiency (VE/VCO2 slope). Absent exercise oscillatory ventilation (EOV). - COMMENTS: Below average exercise capacity based upon peak VO2 obtained compared to age- and gender-matched sedentary controls. Blunted oxygen pulse, cannot exclude impaired stroke volume reserve. Low heart rate recovery. - CONCLUSION: Mildly abnormal functional capacity. Previous cardiovascular interventions: Tricuspid valve repair (07/2016) Resting ECG: Normal Sinus Rhythm and Complete RBBB Exercise Protocol: Denice 10% Stress Exercise Table: +-----+ +-- ------+ +--- +---+---+----+---+ Stage Speed (MPH) Grade(%) Time (min) HR SYS PAU RPE SOB +-----+ +-- ------+ +--- +---+---+----+---+ 1 1.7 10.0 2.0 136 140 96 9.0 0.5 +-----+ +-- ------+ +--- +---+---+----+---+ 2 2.1 11.0 4.0 159 174 96 11.0 3.0 +-----+ +-- ------+ +--- +---+---+----+---+ 3 2.5 12.0 6.0 173 162 94 15.0 4.0 +-----+ +-- ------+ +--- +---+---+----+---+ 4 3.0 13.0 8.0 188 176 80 +-----+ +-- ------+ +--- +---+---+----+---+ +-----+ +-- -------+ +-- -+---+---+----+---+ Speed (MPH) Grade (%) Time (min) HR SYS PAU RPE SOB +-----+ +-- -------+ +-- -+---+---+----+---+ Final 3.4 14.0 8.33 188 176 80 17.0 6.0 +-----+ +-- -------+ +-- -+---+---+----+---+ Recovery Table: +------+ +- -------+ +-- -+---+---+----+ Stage Speed (MPH) Grade(%) Time (min) HR SYS PAU METS +------+ +- -------+ +-- -+---+---+----+ 1 1.0 1.0 1.0 182 160 88 1.9 +------+ +- -------+ +-- -+---+---+----+ 2 1.0 1.0 2.0 170 154 88 1.9 +------+ +- -------+ +-- -+---+---+----+ 3 3.0 142 160 86 +------+ +- -------+ +-- -+---+---+----+ 4 5.0 118 150 82 +------+ +- -------+ +-- -+---+---+----+ Stress Observations: Metabolic stress lab #: 1 Study protocol type: [place] 10% Final treadmill speed: 3.40 mph Final treadmill grade: 14.0% Total exercise duration: 8 min 20 sec [8-12 min] Peak RPE: 17.0 [>18; based on 6-20 scale] Peak dyspnea: 6.0 [<4; based on 0-10 scale] Reason for test termination: shortness of breath Symptoms during test: No symptoms provoked during stress Resting HR: 86 bpm Peak HR: 188 bpm (101% MPHR) Resting BP: 152 / 108 mmHg Peak BP: 176 / 80 mmHg Chronotropic response index (CRI): 1.02 Heart rate recovery (HRR): 6 bpm Rate Pressure Product (RPP): 89750 Metabolic Exercise Data Variable: Observed value [Expected Range] Peak RER: 1.10 [1.1 - 1.50] Peak VO2: 68.6% [>85% pred peak VO2] Peak VO2: 24.3 ml/kg/min METS (VO2/3.5): 6.94 Rest VO2: 4.1 ml/kg/min [2-5 ml/kg/min] VO2 at VAT: 60.5% [40-75% pred peak VO2] VO2 at VAT: 21.6 ml/kg/min CI: 1.62 [0.80-1.30] Peak VO2/HR: 68.0% [>85% pred peak VO2/HR] Peak SpO2: 98.0% [>95%] Peak VE: 59.0% [<85% pred peak VE] Peak VE: 103.5 L/min Peak RR: 33 breaths/min [<60 breaths/min] Peak VT: 3.2 L [1.5-3.0 L] Peak PETCO2: 32 mmHg [35-41 mmHg] VE/VCO2 slope: 32 [<30] EOV: Absent [Absent] (VE/VCO2 slope)/pVO2: 1.32 [< 2.7 (ml/kg/min)-1] HGI: 1.5 [>1.06 bpm/mmHg] Circulatory Power: 4276.80 [>3047 mmHg*(ml/min/kg)] Ventilatory Power: 5.50 [>5 mmHg] OUES: 2758.00 [>3702.00] Peak OUES: 1.30 [>= 0.73] Relevant references: - Acacia KE, No WW, Heidi DY and Tin Welch. Zoila & Juan Ramon's: Principles of Exercise Testing and Interpretation: Including Pathophysiology and Clinical Applications: Dre Slim [employer] Murphy; 2020. - Rhonda Reagan, Logan HUYNH, Jack (more content not included)... Normal [facility] LIPID PANEL, NONFASTINGon Cholesterol [Mass/Vol] 184 mg/dL Normal <200 [facility] Comment on above: Order Comment: Speci men Type: BLOOD SPECIMEN Ordering Facility: [facility] Address: [address] [place] [address] Result Comment: <200 mg/dL, Desirable 200-239 mg/dL, Borderline high >239 mg/dL, High Performed By: #### L [place], 88643-3, 53298-9 #### [facility] CLIA [id number] [address] [place] HDL CHOLESTEROL, NF 36 mg/dL Low >39 [facility] Comment on above: Order Comment: Ana ayoub Type: BLOOD SPECIMEN Ordering Facility: [facility] Address: [address] [place] [address] Result Comment: 40-5 9 mg/dL, Acceptable >59 mg/dL, High: Negative risk factor for coronary heart disease <40 mg/dL, Low: Positive risk factor for coronary heart disease Performed By: #### L IPNF, 20892-9, 51389-7 #### [facility] CLIA [id number] [address] [place] [address] OF [facility] LDL CHOLESTEROL, NF 112 mg/dL High <100 [facility] Comment on above: Order Comment: Ana ayoub Type: BLOOD SPECIMEN Ordering Facility: [facility] Address: [address] [place] [address] Result Comment: <100 mg/dL, Optimal 100-129 mg/dL, Near optimal/above optimal 130-159 mg/dL, Borderline high 160-189 mg/dL, High >189 mg/dL, Very high Secondary prevention optimal LDL Cholesterol levels are recommended to be < 70 mg/dL Performed By: #### L IPNF, 29986-4, 17605-1 #### [facility] CLIA [id number] [address] [place] [address] OF [facility] LDL/HDL RATIO, NF 3.11 mg/dL High <2.54 [facility] Comment on above: Order Comment: Ana ayoub Type: BLOOD SPECIMEN Ordering Facility: [facility] Address: [address] [place] [address] Result Comment: Aubree dallas: 1. National Cholesterol Education Program ATP III Guideline At-A-Glance Quick Desk Reference: National Heart, Lung, and Blood [employer]. National Institutes of Health. 2001: NIH Publication No. 01-3305. 2. An International Atherosclerosis Society position paper: global recommendations for the management of dyslipidemia: executive summary, Atherosclerosis. 2014: 232(2):410-413. Performed By: #### L IPNF, 00907-7, 32265-9 #### [facility] CLIA [id number] [address] [place] [address] [place] NON HDL CHOL, NF 148 mg/dL High <[address] [facility] Comment on above: Order Comment: Speci men Type: BLOOD SPECIMEN Ordering Facility: [facility] Address: [address] [place] [address] Result Comment: <130 mg/dL, Optimal 130-159 mg/dL, Near optimal/above optimal 160-189 mg/dL, Borderline high 190-219 mg/dL, High >219 mg/dL, Very high Secondary prevention optimal non HDL Cholesterol levels are recommended to be <100 mg/dL Performed By: #### L IPLUIS ENRIQUE, 76873-7, 92186-3 #### [facility] CLIA [id number] [address] [place] [address] [place] T CHOL/HDL RATIO NF 5.11 mg/dL High <5.10 [facility] Comment on above: Order Comment: Speci men Type: BLOOD SPECIMEN Ordering Facility: [facility] Address: [address] [place] [address] Performed By: #### L IPLUIS ENRIQUE, 57970-0, 41155-5 #### [facility] CLIA [id number] [address] [place] [address] [place] TRIGLYCERIDES, NF 181 mg/dL High <150 [facility] Comment on above: Order Comment: Speci men Type: BLOOD SPECIMEN Ordering Facility: [facility] Address: [address] [place] [address] Result Comment: <150 mg/dL, Normal 150-199 mg/dL, Borderline high 200-499 mg/dL, High >499 mg/dL, Very high Performed By: #### L IPNF, 88157-3, 77744-8 #### [facility] CLIA [id number] [address] [place] [place] [address] [place] VLDL CHOLESTEROL, NF 36 mg/dL High <30 [facility] Comment on above: Order Comment: Speci men Type: BLOOD SPECIMEN [facility] [facility] Address: [address] [place] [address] Performed By: #### L IPLUIS ENRIQUE, 28842-6, 11176-6 #### [facility] CLIA [id number] [address] [place] [address] STATES OF PATI NT-proBNP [facility] 10-31 Natriuretic peptide.B prohormone N-Terminal [Mass/Vol] 88 pg/mL Normal <125 [facility] Comment on above: Order Comment: Speci men Type: BLOOD SPECIMEN Ordering Facility: [facility] Address: [address] [place] [address] Performed By: #### L IPLUIS ENRIQUE, 83531-3, 75744-9 #### [facility] CLIA [id number] [address] [place] [address] STATES OF PATI No Panel Informationon 10-20 [facility] ic CBC AUTO DIFFon 06-27-2022 BASO # 0.1 103/ul Normal 0.0-0.1 [facility] Comment on above: Performed By: #### C BC #### [facility] [address] [place] [address] Dr. Temi Lux Basophils/100 WBC (Bld) 0.9 % Normal 0.2-2.0 [facility] Comment on above: Performed By: #### C BC #### [facility] [address] [address] [address] Temi Lux EO # 0.2 103/ul Normal 0.0-0.7 [facility] Comment on above: Performed By: #### C BC #### [facility] [address] [address] [address] Temi Lux Eosinophils/100 WBC (Bld) 2.1 % Normal 0.9-7.0 [facility] Comment on above: Performed By: #### C BC #### [facility] [address] [place] [address] Dr. Temi Lux Erythrocyte distribution width (RBC) [Ratio] 11.8 % Normal 11.0-15.0 [facility] Comment on above: Performed By: #### C BC #### [facility] [address] [place] [address] Dr. Temi Lux Hematocrit (Bld) [Volume fraction] 41.7 % Critically low 42.0-54.0 [facility] Comment on above: Performed By: #### C BC #### [facility] [address] [place] [address] Dr. Temi Lux Hemoglobin (Bld) [Mass/Vol] 14.7 g/dL Normal 14.0-18.0 [facility] Comment on above: Performed By: #### C BC #### [facility] [address] [place] [address] Dr. Temi Lux IG # 0.03 10e3/ul Normal 0.00-0.03 [facility] Comment on above: Performed By: #### C BC #### [facility] [address] [place] [address] Dr. Temi Lux IG % 0.3 % Normal 0.0-0.5 [facility] Comment on above: Performed By: #### C BC #### [facility] [address] [place] [address] Dr. Temi Lux LYMPH # 3.4 103/ul Normal 1.2-3.8 [facility] Comment on above: Performed By: #### C BC #### [facility] [address] [place] [address] Dr. Temi Lux Lymphocytes/100 WBC (Bld) 35.2 % Normal 20.5-60.0 [facility] Comment on above: Performed By: #### C BC #### [facility] [address] [place] [address] Dr. Temi Lux MANUAL DIFF REQ NO Normal [facility] Comment on above: Performed By: #### C BC #### [facility] [address] [place] [address] Dr. Temi Lux MCH (RBC) [Entitic mass] 31.3 pg Normal 25.9-34.0 [facility] Comment on above: Performed By: #### C BC #### [facility] [address] [place] [address] Dr. Temi Lux MCHC (RBC) [Mass/Vol] 35.3 g/dL Critically high 29.9-35.2 [facility] Comment on above: Performed By: #### C BC #### [facility] [address] [place] [address] Dr. Temi Lux MCV (RBC) [Entitic vol] 88.9 fL Normal 80.0-94.0 [facility] Comment on above: Performed By: #### C BC #### [facility] [address] [place] [address] Dr. Temi Lux MONO # 0.4 103/ul Normal 0.3-0.8 [facility] Comment on above: Performed By: #### C BC #### [facility] [address] [place] [address] Dr. Temi Lux Monocytes/100 WBC (Bld) 4.6 % Normal 1.7-12.0 [facility] Comment on above: Performed By: #### C BC #### [facility] [address] [place] [address] Dr. Temi Lux NEUT # 5.4 103/ul Normal 1.4-6.5 [facility] Comment on above: Performed By: #### C BC #### [facility] [address] [place] [address] Dr. Temi Lux Neutrophils/100 WBC (Bld) 56.9 % Normal 43.0-75.0 [facility] Comment on above: Performed By: #### C BC #### [facility] [address] [place] [address] Dr. Temi Lux Platelet mean volume (Bld) [Entitic vol] 10.1 fL Normal 9.5-13.5 [facility] Comment on above: Performed By: #### C BC #### [facility] [address] [place] [address] Dr. Temi Lux PLT 291 103/ul Normal 150-450 [facility] Comment on above: Performed By: #### C BC #### [facility] [address] [place] [address] Dr. Temi Lux RBC 4.69 106/ul Critically low 4.70-6.10 [facility] Comment on above: Performed By: #### C BC #### [facility] [address] [address] [address] Temi Lux WBC 9.5 103/ul Normal 4.0-11.0 [facility] Comment on above: Performed By: #### C BC #### [facility] [address] [place] [address] Dr. Temi Lux PROF CHEM 8 (BAS METB)on Anion gap [Moles/Vol] 12.5 mmol/L Normal [facility] Comment on above: Performed By: #### B BRANNON HSTROPN #### [facility] [address] [place] [address] Dr. Temi Lux Calcium [Mass/Vol] 9.2 mg/dL Normal 8.5-10.1 [facility] Comment on above: Performed By: #### B BRANNON HSTROPN #### [facility] [address] [place] [address] Dr. Temi Lux Chloride [Moles/Vol] 102 mmol/L Normal 98-107 [facility] Comment on above: Performed By: #### B BRANNON HSTROPN #### [facility] [address] [place] [address] Dr. Temi Lux CO2 [Moles/Vol] 26.0 mmol/L Normal 21.0-32.0 [facility] Comment on above: Performed By: #### B BRANNON HSTROPN #### [facility] [address] [place] [address] Dr. Temi Lux Creatinine [Mass/Vol] 0.91 mg/dL Normal 0.70-1.30 [facility] Comment on above: Performed By: #### B MP, HSTROPN #### [facility] [address] [address] [address] Temi Lux EGFR-AF ESTONIAN >60 Normal >=60 [facility] Comment on above: Performed By: #### B MP, HSTROPN #### [facility] [address] [address] [address] Temi Lux EGFR-NON AF ESTONIAN >60 Normal >=60 [facility] Comment on above: Performed By: #### B MP, HSTROPN #### [facility] [address] [address] [address] Temi Lux Glucose [Mass/Vol] 100 mg/dL Normal 74-106 [facility] Comment on above: Performed By: #### B BRANNON, HSTROPN #### [facility] [address] [address] [address] Temi Lux Potassium [Moles/Vol] 4.5 mmol/L Normal 3.5-5.1 [facility] Comment on above: Performed By: #### B BRANNON, HSTROPN #### [facility] [address] [address] [address] Temi Lux Sodium [Moles/Vol] 136 mmol/L Normal 136-145 [facility] Comment on above: Performed By: #### B BRANNON, HSTROPN #### [facility] [address] [address] [address] Temi Lux Urea nitrogen [Mass/Vol] 16.0 mg/dL Normal 7.0-18.0 [facility] Comment on above: Performed By: #### B MP, HSTROPN #### [facility] [address] [address] [address] Temi Lux Urea nitrogen/Creatini ne [Mass ratio] 17.6 mg/mg Normal [facility] Comment on above: Performed By: #### B BRANNON, HSTROPN #### [facility] [address] [address] [address] Temi Lux TROPONIN, HIGH SENSITIVITYon 06-27-2022 HSTROP 4.2 pg/mL Normal 4.0-76.1 [facility] Comment on above: Result Comment: CUT- OFF POINTS HAVE BEEN ESTABLISHED BASED ON THE FOURTH UNIVERSAL DEFINITIONS OF MYOCARDIAL INFARCTION. THE UPPER REFERENCE LIMIT (URL) OF TROPONIN, DEFINED THE 99TH PERCENTILE OF cTnI DISTRIBUTION IN A REFERENCE POPULATION, HAS BEEN CONFIRMED THE DECISION THRESHOLD FOR GA DIAGNOSIS. Performed By: #### B NATI SOUTH #### [facility] [address] [address] [address] Temi Lux XR CHEST 1 Von 06-27-2022 XR CHEST 1 V EXAM: XR CHEST 1 V HISTORY: The patient is a 32-year-old male. CHEST PAIN, UNSPECIFIED COMPARISON: 12/16/2021. FINDINGS: The lungs are well-inflated and clear with no confluent airspace infiltrates, pleural effusions, or pneumothoraces. The heart and mediastinum are within normal limits. The trachea is midline. IMPRESSION: No acute cardiopulmonary abnormalities. Electronically authenticated by: BILL GONZALEZ Date: 2022-06-27 18:22 Normal [facility] Covid-19 PCR (CVDTBH)on 12-24 SARS-CoV-2 (COVID-19) RNA HERBERTH+probe Ql (Unsp spec) Detected Critically abnormal NOT DETECTED [facility] Comment on above: Result Comment: This test is not yet approved or cleared by the [place] FDA. When there are no FDA-approved or cleared tests available, and other criteria are met, FDA can make tests available under an emergency access mechanism called an Emergency Use Authorization (EUA). The EUA for this test is supported by the [place] of Health and Human Service's declaration that circumstances exist to justify the emergency use of in vitro diagnostics for the detection and/or diagnosis of the virus that causes COVID-19. This EUA will remain in effect for the duration of the COVID-19 declaration justifying emergency of IVDs, unless it is terminated or revoked by the FDA (after which the test may no longer be used). This test is not yet approved or cleared by the [place] FDA. When there are no FDA-approved or cleared tests available, and other criteria are met, FDA can make tests available under an emergency access mechanism called an Emergency Use Authorization (EUA). The EUA for this test is supported by the [place] of Health and Human Service's ([facility]'s) declaration that circumstances exist to justify the emergency use of in vitro diagnostics for the detection and/or diagnosis of the virus that causes COVID-19. This EUA will remain in effect (meaning this test can be used) for the duration of the COVID-19 declaration justifying emergency of IVDs, unless it is terminated or revoked by FDA (after which the test may no longer be used). Performed By: #### Gino PETER, BMP #### [facility] [address] [place] [address] Dr. Temi Lux CARDIAC KAROL 3-6on 2 CK [Catalytic activity/Vol] 72 U/L Normal 39-308 [facility] Comment on above: Performed By: #### Gino PETER, BMP #### [facility] [address] [place] [address] Dr. Temi Lux CK.MB [Mass/Vol] 0.71 ng/mL Normal <=3.60 [facility] Comment on above: Performed By: #### Gino PETER, BMP #### [facility] [address] [place] [address] Dr. Temi Lux HSTROP 4.7 pg/mL Normal 4.0-76.1 [facility] Comment on above: Result Comment: CUT- OFF POINTS HAVE BEEN ESTABLISHED BASED ON THE FOURTH UNIVERSAL DEFINITIONS OF MYOCARDIAL INFARCTION. THE UPPER REFERENCE LIMIT (URL) OF TROPONIN, DEFINED THE 99TH PERCENTILE OF cTnI DISTRIBUTION IN A REFERENCE POPULATION, HAS BEEN CONFIRMED THE DECISION THRESHOLD FOR GA DIAGNOSIS. Performed By: #### Gino PETER, BMP #### [facility] [address] [place] [address] Dr. Temi Lux CARDIAC KAROL ADMITon 022 CK [Catalytic activity/Vol] 80 U/L Normal 39-308 [facility] Comment on above: Performed By: #### Gino PETER, BMP #### [facility] [address] [place] [address] Dr. Temi Lux CK.MB [Mass/Vol] 0.66 ng/mL Normal <=3.60 [facility] Comment on above: Performed By: #### C MADM, BMP #### [facility] [address] [place] [address] Dr. Temi Lxu HSTROP 5.6 pg/mL Normal 4.0-76.1 [facility] Comment on above: Result Comment: CUT- OFF POINTS HAVE BEEN ESTABLISHED BASED ON THE FOURTH UNIVERSAL DEFINITIONS OF MYOCARDIAL INFARCTION. THE UPPER REFERENCE LIMIT (URL) OF TROPONIN, DEFINED THE 99TH PERCENTILE OF cTnI DISTRIBUTION IN A REFERENCE POPULATION, HAS BEEN CONFIRMED THE DECISION THRESHOLD FOR GA DIAGNOSIS. Performed By: #### C ROME, BMP #### [facility] [address] [place] [address] Dr. Temi Lux BARBARA 25 ng/mL Normal 16-96 [facility] Comment on above: Performed By: #### C ROME, BMP #### [facility] [address] [place] [address] Dr. Temi Lux CBC AUTO DIFFon 12-17-2021 BASO # 0.1 103/ul Normal 0.0-0.1 [facility] Comment on above: Performed By: #### C BC #### [facility] [address] [place] [address] Dr. Temi Lux Basophils/100 WBC (Bld) 0.7 % Normal 0.2-2.0 [facility] Comment on above: Performed By: #### C BC #### [facility] [address] [place] [address] Dr. Temi Lux EO # 0.3 103/ul Normal 0.0-0.7 [facility] Comment on above: Performed By: #### C BC #### [facility] [address] [place] [address] Dr. Temi Lux Eosinophils/100 WBC (Bld) 2.6 % Normal 0.9-7.0 [facility] Comment on above: Performed By: #### C BC #### [facility] [address] [place] [address] Dr. Temi Lux Erythrocyte distribution width (RBC) [Ratio] 11.7 % Normal 11.0-15.0 [facility] Comment on above: Performed By: #### C BC #### [facility] [address] [place] [address] Dr. Temi Lux Hematocrit (Bld) [Volume fraction] 41.8 % Critically low 42.0-54.0 [facility] Comment on above: Performed By: #### C BC #### [facility] [address] [place] [address] Dr. Temi Lux Hemoglobin (Bld) [Mass/Vol] 14.3 g/dL Normal 14.0-18.0 [facility] Comment on above: Performed By: #### C BC #### [facility] [address] [place] [address] Dr. Temi Lux IG # 0.03 10e3/ul Normal 0.00-0.03 [facility] Comment on above: Performed By: #### C BC #### [facility] [address] [place] [address] Dr. Temi Lux IG % 0.2 % Normal 0.0-0.5 [facility] Comment on above: Performed By: #### C BC #### [facility] [address] [place] [address] Dr. Temi Lux LYMPH # 3.7 103/ul Normal 1.2-3.8 [facility] Comment on above: Performed By: #### C BC #### [facility] [address] [place] [address] Dr. Temi Lux Lymphocytes/100 WBC (Bld) 31.0 % Normal 20.5-60.0 [facility] Comment on above: Performed By: #### C BC #### [facility] [address] [place] [address] Dr. Temi Lux MANUAL DIFF REQ NO Normal [facility] Comment on above: Performed By: #### C BC #### [facility] [address] [place] [address] Dr. Temi Lux MCH (RBC) [Entitic mass] 31.2 pg Normal 25.9-34.0 [facility] Comment on above: Performed By: #### C BC #### [facility] [address] [place] [address] Dr. Temi Lux MCHC (RBC) [Mass/Vol] 34.2 g/dL Normal 29.9-35.2 [facility] Comment on above: Performed By: #### C BC #### [facility] [address] [place] [address] Dr. Temi Lux MCV (RBC) [Entitic vol] 91.1 fL Normal 80.0-94.0 [facility] Comment on above: Performed By: #### C BC #### [facility] [address] [address] [address] Temi Lux MONO # 0.7 103/ul Normal 0.3-0.8 [facility] Comment on above: Performed By: #### C BC #### [facility] [address] [place] [address] Dr. Temi Lux Monocytes/100 WBC (Bld) 5.4 % Normal 1.7-12.0 [facility] Comment on above: Performed By: #### C BC #### [facility] [address] [place] [address] Dr. Temi Lux NEUT # 7.3 103/ul Critically high 1.4-6.5 [facility] Comment on above: Performed By: #### C BC #### [facility] [address] [place] [address] Dr. Temi Lux Neutrophils/100 WBC (Bld) 60.1 % Normal 43.0-75.0 [facility] Comment on above: Performed By: #### C BC #### [facility] [address] [place] [address] Dr. Temi Lux Platelet mean volume (Bld) [Entitic vol] 10.1 fL Normal 9.5-13.5 [facility] Comment on above: Performed By: #### C BC #### [facility] [address] [place] [address] Dr. Temi Lux PLT 252 103/ul Normal 150-450 [facility] Comment on above: Performed By: #### C BC #### [facility] [address] [place] [address] Dr. Temi Lux RBC 4.59 106/ul Critically low 4.70-6.10 [facility] Comment on above: Performed By: #### C BC #### [facility] [address] [place] [address] Dr. Temi Lux WBC 12.1 103/ul Critically high 4.0-11.0 [facility] Comment on above: Performed By: #### C BC #### [facility] [address] [place] [address] Dr. Temi Lux D-DIMERon 12-17-2021 D-DIMER <0.19 Normal <=0.59 [facility] Comment on above: Performed By: #### D DIM #### [facility] [address] [place] [address] Dr. Temi Lux D-DIMER COMMENTS SEE BELOW Normal [facility] Comment on above: Result Comment: Incr eases in D-Dimer concentration observed with thromboembolic events can be variable due to localization, size, and age of the thrombus. Therefore, a thromboembolic event cannot be diagnosed with certainty on the basis of the reference range. D-Dimers may also be elevated for a variety of disorders including: advanced age, , coronary disease, cancer, liver disease, infection, inflammation, hematoma, DIC, trauma, post-surgery, diabetes, thrombolytic or anticoagulant therapy, stress, and generalized hospitalization. Performed By: #### D DIM #### [facility] [address] [place] [address] Dr. Temi Lux PROF CHEM 8 (BAS METB)on Anion gap [Moles/Vol] 12.4 mmol/L Normal [facility] Comment on above: Performed By: #### C MADM, BMP #### [facility] [address] [place] [address] Dr. Temi Lux Calcium [Mass/Vol] 9.1 mg/dL Normal 8.5-10.1 [facility] Comment on above: Performed By: #### C MADM, BMP #### [facility] [address] [place] [address] Dr. Temi Lux Chloride [Moles/Vol] 105 mmol/L Normal 98-107 [facility] Comment on above: Performed By: #### C MADM, BMP #### [facility] [address] [address] [address] Temi Lux CO2 [Moles/Vol] 25.5 mmol/L Normal 21.0-32.0 [facility] Comment on above: Performed By: #### C MADM, BMP #### [facility] [address] [address] [address] Temi Lux Creatinine [Mass/Vol] 1.10 mg/dL Normal 0.70-1.30 [facility] Comment on above: Performed By: #### C MADM, BMP #### [facility] [address] [address] [address] Temi Lux EGFR-AF ESTONIAN >60 Normal >=60 [facility] Comment on above: Performed By: #### C MADM, BMP #### [facility] [address] [address] [address] Temi Lux EGFR-NON AF ESTONIAN >60 Normal >=60 [facility] Comment on above: Performed By: #### C MADM, BMP #### [facility] [address] [address] [address] Temi Lux Glucose [Mass/Vol] 108 mg/dL Critically high 74-106 [facility] Comment on above: Performed By: #### C MADM, BMP #### [facility] [address] [address] [address] Temi Lux Potassium [Moles/Vol] 3.9 mmol/L Normal 3.5-5.1 [facility] Comment on above: Performed By: #### C MADM, BMP #### [facility] [address] [address] [address] Temi Lux Sodium [Moles/Vol] 139 mmol/L Normal 136-145 [facility] Comment on above: Performed By: #### C MADM, BMP #### [facility] [address] [address] [address] Temi Lux Urea nitrogen [Mass/Vol] 23.0 mg/dL Critically high 7.0-18.0 [facility] Comment on above: Performed By: #### C ROME, BMP #### [facility] [address] [place], [place] [address] Dr. Temi Lux Urea nitrogen/Creatini ne [Mass ratio] 20.9 mg/mg Normal [facility] Comment on above: Performed By: #### C ROME, BMP #### [facility] [address] [place], [place] [address] Dr. Temi Lux XR CHEST 2 Von 12-17-2021 XR CHEST 2 V EXAM: XR CHEST 2 V HISTORY: Chest pain COMPARISON: CT chest 12/16/2020. TECHNIQUE: 2 view chest x-ray frontal and lateral FINDINGS: Status post sternotomy and tricuspid valvular device placement. Mildly prominent right atrium/ventricle cardiac border contour, similar to prior exam. No lobar consolidation, large pleural effusions, pneumothorax, or acute bony abnormality. Cardiac overall size unremarkable. IMPRESSION: Tricuspid valve device and mildly prominent right atrium/ventricle cardiac border, similar to prior exam. No radiographic lung consolidation or large pleural effusions. Electronically authenticated by: BRENTON SALAS Date: 2021-12-16 23:05 Normal [facility] Covid-19 PCR (CVDTB)on 07-28 SARS-CoV-2 (COVID-19) RNA HERBERTH+probe Ql (Unsp spec) Not detected Normal NOT DETECTED [facility] Comment on above: Result Comment: This test is not yet approved or cleared by the [place] FDA. When there are no FDA-approved or cleared tests available, and other criteria are met, FDA can make tests available under an emergency access mechanism called an Emergency Use Authorization (EUA). The EUA for this test is supported by the [place] of Health and Human Service's (HHS's) declaration that circumstances exist to justify the emergency use of in vitro diagnostics for the detection and/or diagnosis of the virus that causes COVID-19. This EUA will remain in effect (meaning this test can be used) for the duration of the COVID-19 declaration justifying emergency of IVDs, unless it is terminated or revoked by FDA (after which the test may no longer be used). When diagnostic testing is negative, the possibility of a false negative should be considered in the context of a patient's recent exposures and the presence of clinical signs and symptoms consistent with SARS-CoV-2. Performed By: #### [facility] #### [facility] [address] [address] [address] Temi Lux XR hand RT min 3V*on 021 XR hand RT min 3V* [facility] [employer] Other XR hand RT min 3V* [facility] [employer] Other XR hand RT min 3V* [address] [place] [address] [employer] Other XR hand RT min 3V* [place] [address] [employer] Other XR hand RT min 3V* XRay Report [employer] Other XR hand RT min 3V* Signed [employer] Other XR hand RT min 3V* Patient: Allie Funes MR#: [id number] [employer] Other XR hand RT min 3V* 6091 [employer] Other XR hand RT min 3V* : 1990 Acct:[id number] [employer] Other XR hand RT min 3V* Age/Sex: 31 / M ADM Date: 04/12/21 [employer] Other XR hand RT min 3V* Loc: XDUCLY Room: Type: [facility] CLI [employer] Other XR hand RT min 3V* Attending Dr: Mirtha GARCIA [employer] Other XR hand RT min 3V* Ordering Provider: MIRTHA MONTES [employer] Other XR hand RT min 3V* Date of Service: 04/12/21 [employer] Other XR hand RT min 3V* XR/XR hand RT min 3V*: RIGHT HAND INJURY [employer] Other XR hand RT min 3V* Copies to: MIRTHA MONTESP-C [employer] Other XR hand RT min 3V* CLINICAL HISTORY: Patient fell yesterday catching himself with right hand on the underground. The [employer] Other XR hand RT min 3V* fingers were bent back. Pain and swelling to the second and third distal metacarpals and over the [employer] Other XR hand RT min 3V* index and the middle fingers. Old fourth and fifth metacarpal fractures. [employer] Other XR hand RT min 3V* XR hand RT min 3V* [employer] Other XR hand RT min 3V* COMPARISON: None [employer] Other XR hand RT min 3V* FINDINGS: AP, lateral and oblique views of the right hand were obtained. A small cortical [employer] Other XR hand RT min 3V* fracture is demonstrated at the base of the mid phalanx of the middle finger radially. Old fractures [employer] Other XR hand RT min 3V* are shown at the fourth and fifth metacarpals. No other significant acute bone or joint [employer] Other XR hand RT min 3V* abnormalities are noted. Moderate soft tissue swelling is shown at the proximal portions of the [employer] Other XR hand RT min 3V* index and middle fingers. [employer] Other XR hand RT min 3V* XR/XR hand RT min 3V* [employer] Other XR hand RT min 3V* IMPRESSION: [employer] Other XR hand RT min 3V* A SMALL CORTICAL FRACTURE AT THE BASE OF THE MID PHALANX OF THE MIDDLE FINGER. [employer] Other XR hand RT min 3V* Impression dictated by: Gregory Bhatt M.D.04/12/2021 11:30 AM [employer] Other XR hand RT min 3V* Dictation Location: [facility]- [employer] [facility] [employer] Other XR hand RT min 3V* Transcribed By: PWS 04/12/21 1130 [employer] Other XR hand RT min 3V* Dictated By: Gregory Bhatt MD 04/12/21 1125 [employer] Other XR hand RT min 3V* Signed By: [employer] Other XR hand RT min 3V* 04/12/21 1139 [employer] Other Vital Signs Date Time Vital Sign Value Performing Clinician Facility 12-29-2023 12:33-0400 Body height 187.96 cm PHYSICIAN NO [facility] 12-29-2023 12:33-0400 Body mass index (BMI) [Ratio] 30.9 kg/m2 PHYSICIAN NO [facility] 12-29-2023 12:33-0400 Body temperature 97.8 [degF] PHYSICIAN NO [facility] 12-29-2023 12:33-0400 Body weight 109.42 kg PHYSICIAN NO [facility] 12-29-2023 12:33-0400 Diastolic blood pressure 85 mm[Hg] PHYSICIAN NO [facility] 12-29-2023 12:33-0400 Heart rate 101 /min PHYSICIAN NO [facility] 12-29-2023 12:33-0400 Respiratory rate 18 /min PHYSICIAN NO [facility] 12-29-2023 12:33-0400 SaO2% (BldA) [Mass fraction] 97 % PHYSICIAN NO [facility] 12-29-2023 12:33-0400 Systolic blood pressure 133 mm[Hg] PHYSICIAN RAMONA [facility] 11-01-2023 14:22-0400 Diastolic blood pressure 86 mm[Hg] Esme Hdz MD Work Phone: [facility] 11-01-2023 14:22-0400 Systolic blood pressure 128 mm[Hg] Esme Hdz MD Work Phone: [facility] 11-01-2023 14:19-0400 Body mass index (BMI) [Ratio] 30.48 kg/m2 Esme Hdz MD Work Phone: [facility] 11-01-2023 14:19-0400 Body weight 107.68 kg Esme Hdz MD Work Phone: [facility] 11-01-2023 14:19-0400 Heart rate 92 /min Esme Hdz MD Work Phone: [facility] 11-01-2023 14:19-0400 SaO2% (BldA) [Mass fraction] 95 % Esme Hdz MD Work Phone: [facility] 10-20-2022 15:28-0400 Body weight 103.42 kg Esme Hdz MD Work Phone: [facility] 10-20-2022 15:28-0400 Diastolic blood pressure 85 mm[Hg] Esme Hdz MD Work Phone: [facility] 10-20-2022 15:28-0400 Heart rate 88 /min Esme Hdz MD Work Phone: [facility] 10-20-2022 15:28-0400 SaO2% (BldA) [Mass fraction] 98 % Esme Hdz MD Work Phone: [facility] 10-20-2022 15:28-0400 Systolic blood pressure 130 mm[Hg] Esme Hdz MD Work Phone: [facility] 10-20-2022 09:06-0400 Body height 188 cm Mri (I-Stat/1.5t) Work Phone: [facility] 10-20-2022 09:06-0400 Body weight 103.42 kg Mri (I-Stat/1.5t) Work Phone: [facility] 10-20-2022 09:06-0400 Diastolic blood pressure 81 mm[Hg] Mri (I-Stat/1.5t) Work Phone: [facility] 10-20-2022 09:06-0400 Heart rate 97 /min Mri (I-Stat/1.5t) Work Phone: [facility] 10-20-2022 09:06-0400 Systolic blood pressure 143 mm[Hg] Mri (I-Stat/1.5t) Work Phone: [facility] 04-12-2021 11:25-0400 Body height 186.69 cm Mirtha Kayla Other [employer] Other 04-12-2021 11:25-0400 Body mass index (BMI) [Ratio] 28.5 kg/m2 Mirtha Kayla Other [employer] Other 04-12-2021 11:25-0400 Body temperature 98.6 [degF] Mirtha Kayla Other [employer] Other 04-12-2021 11:25-0400 Body weight 99.34 kg Mirtha Kayla Other [employer] Other 04-12-2021 11:25-0400 Diastolic blood pressure 86 mm[Hg] Mirtha Kayla Other [employer] Other 04-12-2021 11:25-0400 Respiratory rate 18 /min Mirthagus Montes Other [employer] Other 04-12-2021 11:25-0400 SaO2% (BldA) [Mass fraction] 99 % Mirtha Montes Other [employer] Other 04-12-2021 11:25-0400 Systolic blood pressure 140 mm[Hg] Mirtha Montes Other [employer] Other Encounters Encounter Date Encounter Type Care Provider Facility Start: 12-29-2023 End: 12-29-2023 ambulatory PHYSICIAN NO [facility] Work Phone: Start: 12-29-2023 End: 12-29-2023 Patient encounter procedure PHYSICIAN NO [facility] Work Phone: Start: 11-01-2023 End: 11-01-2023 ambulatory [facility] Facility:[facility] Start: 11-01-2023 End: 11-01-2023 Patient encounter procedure Esme Hdz MD Work Phone: Cardiology Comment on above: Dysplastic tricuspid valve (Primary Dx); S/P tricuspid valve repair; Primary hypertension; Obesity, Class I, BMI 30-34.9 Start: 11-01-2023 End: 11-02-2023 ambulatory [facility] Facility:[facility] Start: 11-01-2023 End: 11-02-2023 ambulatory CARLOS Theo [facility] Facility:[facility] Start: 10-20-2022 End: 10-20-2022 Orders Only Bernadette Oakes MD Work Phone: Cardiology Comment on above: Cardiomyopathy, unsp ecified type (HCC) Dysplastic tricuspid valve (Primary Dx) Dysplastic tricuspid valve [Q24.8] Dysplastic tricuspid valve (Primary Dx); S/P tricuspid valve repair Start: 09-05-2022 Orders Only Esme Hdz MD Work Phone: Cardiology Comment on above: Dysplastic tricuspid valve (Primary Dx) Start: 07-04-2022 Telephone encounter Alley zimmerman MD Work Phone: Cardiology Comment on above: Appointment Start: 06-27-2022 End: 06-27-[address] CARLOS ARCEO Facility:[facility] Start: 05-30-2022 Orders Only Esme Hdz MD Work Phone: Cardiology Comment on above: S/P tricuspid valve repair (Primary Dx) Start: 01-04-2022 End: 01-04-[address] CARLOS ARCEO Facility:[facility] Start: 12-16-2021 End: 12-17-[address] CARLOS ARCEO Facility:[facility] Start: 08-20-2021 End: 08-20-[address] CARLOS ARCEO Facility:[facility] Start: 04-12-2021 Office outpatient vi sit 15 minutes Mirtha Montes [facility] Procedures Date Procedure Procedure Detail Performing Clinician Start: 12-29-2023 Plain X-ray of right forearm PHYSICIAN NO FAMILY Start: 12-29-2023 Plain X-ray of right hand PHYSICIAN NO FAM[facility] Start: 10-20-2022 Cardiac mri for [place] flow mapping Esme Hdz MD Work Phone: Plan of Treatment Date Care Activity Detail Author Start: 11-04-2024 End: 02-03-2025 CBC panel - Blood by Automated count COMPLETE BLOOD COUNT Lab Routine Dysplastic tricuspid valve Expected: 11/04/2024, Expires: 02/03/2025 [facility] Comment on above: Expected: 11/04/2024 , Expires: 02/03/2025 Start: 11-04-2024 End: 02-03-2025 Comprehensive metabolic 2000 panel - Serum or Plasma COMPREHENSIVE METABOLIC PANEL Lab Routine Dysplastic tricuspid valve Expected: 11/04/2024, Expires: 02/03/2025 [facility] Work Phone: Comment on above: Expected: 11/04/2024 , Expires: 02/03/2025 Start: 11-04-2024 End: 02-03-2025 Lipid 1996 panel - Serum or Plasma LIPID PANEL BASIC Lab Routine Dysplastic tricuspid valve Expected: 11/04/2024, Expires: 02/03/2025 [facility] Comment on above: Expected: 11/04/2024 , Expires: 02/03/2025 Start: 02-25-2024 Influenza vaccination Influenz a Vaccine (Season Ended) [facility] Start: 10-25-2023 End: 12-25-2023 CBC panel - Blood by Automated count CBC Lab Routine Dysplastic tricuspid valve Expected: 10/25/2023, Expires: 12/25/2023 [facility] Work Phone: Comment on above: Expected: 10/25/2023 , Expires: 12/25/2023 Start: 10-25-2023 End: 12-25-2023 Comprehensive metabolic 2000 panel - Serum or Plasma COMP METABOLIC PANEL Lab Routine Dysplastic tricuspid valve Expected: 10/25/2023, Expires: 12/25/2023 [facility] Work Phone: Comment on above: Expected: 10/25/2023 , Expires: 12/25/2023 Start: 10-25-2023 ECG COMPLETE ECG COMPLETE E CG Routine Dysplastic tricuspid valve Expected: 10/25/2023 [facility] Work Phone: Comment on above: Expected: 10/25/2023 Start: 10-25-2023 ECHO SPECIALIST COMP JUAN JOSE ADULT CONGENITAL ECHO SPECIALIST COMPLEX ADULT CONGENITAL Cardiology Routine Dysplastic tricuspid valve Expected: 10/25/2023 [facility] Work Phone: Comment on above: Expected: 10/25/2023 Start: 10-25-2023 EXERCISE STRESS ECG METABOLIC (WITHOUT IMAGING) EXERCISE STRESS ECG METABOLIC (WITHOUT IMAGING) Cardiology Routine Dysplastic tricuspid valve Expected: 10/25/2023 [facility] Work Phone: Comment on above: Expected: 10/25/2023 Start: 10-25-2023 End: 12-25-2023 LIPID PANEL, NONFASTING LIPID PANEL, NONFASTING Lab Routine Dysplastic tricuspid valve Expected: 10/25/2023, Expires: 12/25/2023 [facility] Work Phone: Comment on above: Expected: 10/25/2023 , Expires: 12/25/2023 Start: 10-25-2023 End: 12-25-2023 Natriuretic peptide.B prohormone N-Terminal [Mass/volume] in Serum or Plasma NT PRO BNP Lab Routine Dysplastic tricuspid valve Expected: 10/25/2023, Expires: 12/25/2023 [facility] Work Phone: Comment on above: Expected: 10/25/2023 , Expires: 12/25/2023 Start: 06-26-2023 Behavioral Health Screening Behavioral Health Screening [facility] Start: 02-24-2023 Covid-19 Vaccine ( season) Covid-19 Vaccine ( season) [facility] Start: 02-24-2023 Influenza vaccination INFLUENZ A (Season Ended) [facility] Start: 06-26-2022 [facility] Start: 02-24-2022 Influenza vaccination INFLUENZA (#1) [facility] Start: 06-26-2021 DEPRESSION ASSESSMENT DEPRESSION ASS [facility] Start: 2009 Hepatitis B Vaccine (1 of 3 - 19+ 3-dose series) Hepatitis B Vaccine (1 of 3 - 19+ 3-dose series) [facility] Start: 2009 Urine microalbumin profile [facility] Start: 2008 ANNUAL PCP TEAM GAS BRAZER CELESTINO DISEASE VISIT ANNUAL PCP TEAM CHRONIC DISEASE VISIT [facility] Start: 2008 BP CONTROLLED (<130/80) BP CONTROLLE D (<130/80) [facility] Start: 2008 HEPATITIS C SCREENING HEPATITIS C [facility] Start: 2008 Hepatitis C screening Hepatitis C [facility] Start: 2008 HIV SCREENING HIV SCREENING [facility] Start: 2008 HIV screening HIV Screening [facility] Start: 1996 PNEUMOCOCCAL (1 - PCV) PNEUMOCOCCAL (1 - PCV) [facility] Start: 1990 COVID-19 VACCINE (#1) COVID-19 VACCI NE (#1) [facility] Start: 1990 HEPATITIS B (1 of 3 - 3-dose series) HEPATITIS B (1 of 3 - 3-dose series) [facility] End: 05-30-2023 ECG COMPLETE ECG COMPLETE ECG Routine S/P tricuspid valve repair 1 Occurrences starting 05/30/2022 until 05/30/2023 [facility] Work Phone: Comment on above: 1 Occurrences starti ng 05/30/2022 until 05/30/2023 End: 11-04-2024 ECG COMPLETE ECG COMPLETE ECG Routine Dysplastic tricuspid valve 1 Occurrences starting 11/05/2023 until 11/04/2024 [facility] Comment on above: 1 Occurrences starti ng 11/05/2023 until 11/04/2024 End: 11-04-2024 ECHO SPECIALIST COMPLEX ADULT CONGENITAL ECHO SPECIALIST COMPLEX ADULT CONGENITAL Cardiology Routine Dysplastic tricuspid valve 1 Occurrences starting 11/05/2023 until 11/04/2024 [facility] Comment on above: 1 Occurrences starti ng 11/05/2023 until 11/04/2024 End: 05-30-2023 Echocardiography ECHO Cardiology Routine S/P tricuspid valve repair 1 Occurrences starting 05/30/2022 until 05/30/2023 [facility] Work Phone: Comment on above: 1 Occurrences starti ng 05/30/2022 until 05/30/2023 End: 09-06-2023 Echocardiography ECHO Cardiology Routine Dysplastic tricuspid valve 1 Occurrences starting 09/05/2022 until 09/06/2023 [facility] Work Phone: Comment on above: 1 Occurrences starti ng 09/05/2022 until 09/06/2023 End: 11-19-2023 MRA CHEST CARDIOVASCULAR WO IVCON MRA CHEST CARDIOVASCULAR WO IVCON Radiology Routine Dysplastic tricuspid valve 1 Occurrences starting 10/20/2022 until 11/19/2023 [facility] Work Phone: Comment on above: 1 Occurrences starti ng 10/20/2022 until 11/19/2023 End: 10-20-2022 MRA CHEST CARDIOVASCULAR WO IVCON MRA CHEST CARDIOVASCULAR WO IVCON Radiology Routine Dysplastic tricuspid valve 1 Occurrences starting 10/20/2022 until 10/20/2022 [facility] Work Phone: Comment on above: 1 Occurrences starti ng 10/20/2022 until 10/20/2022 End: 11-19-2023 MRI CARDIAC MORPH FUNC WO IVCON MRI CARDIAC MORPH FUNC WO IVCON Radiology Routine Cardiomyopathy, unspecified type (HCC) 1 Occurrences starting 10/20/2022 until 11/19/2023 [facility] Work Phone: Comment on above: 1 Occurrences starti ng 10/20/2022 until 11/19/2023 MRI CARDIAC MORPH FU NC WO IVCON MRI CARDIAC MORPH FUNC WO IVCON Radiology Routine Cardiomyopathy, unspecified type (HCC) 10/20/2022 10:[address] [facility] Work Phone: End: 10-20-2022 MRI CARDIAC MORPH FUNC WO/W IVCON MRI CARDIAC MORPH FUNC WO/W IVCON Radiology Routine Dysplastic tricuspid valve 1 Occurrences starting 10/20/2022 until 10/20/2022 [facility] Work Phone: Comment on above: 1 Occurrences starti ng 10/20/2022 until 10/20/2022 XR Hand - right GE 3 Views [facility] XR Radius and Ulna - right 2 Views [facility] c Payers Date Payer Category Payer Self-pay [id number] 2023 Private Health Insurance [employer]IA [employer] [id number] 2023-Present [phone] [address] [place] [address] PPO [id number] 2023 Private Health Insurance [id number] 2019 Unknown [id number] 1990 Unknown [id number] 1990 Unknown [id number] 1990 Unknown [id number] 1990 Unknown [id number] 1959 Blue Cross Blue Shield [id number] Private Health Insurance [facility] [id number] Unknown [id number] Social History Date Type Detail Facility Unknown if ever smoked [employer] Other Start: 05-07-2020 End: 11-01-2023 Sex Assigned At [facility] [employer] Other Start: 05-09-2011 End: 06-30-2022 Tobacco smoking status ORIS Smokes tobacco daily [facility] Start: 05-09-2011 End: 03-25-2023 History of tobacco use Cigarette Smoker [facility] Start: 03-21-2018 End: 11-01-2023 Cigarettes smoked current (pack per day) - Reported 0.5 [facility] Start: 03-21-2018 End: 11-01-2023 Tobacco use and exposure Smokeless tobacco non-user [facility] Start: 08-18-2021 Alcohol intake Ex-drinker (finding) [facility] Start: 05-07-2020 History SDOH Alcohol Frequency 5 [facility] Start: 05-07-2020 History SDOH Alcohol Std Drinks 2 [facility] Start: 05-07-2020 History SDOH Alcohol Binge 4 [facility] Start: 10-15-2020 Alcohol Comment Quit 07/2020 [facility] Start: 1990 Sex Assigned At Not on file [facility] Start: 06-30-2022 End: 11-01-2023 Alcohol intake Current drinker of alcohol (finding) [facility] Start: 06-30-2022 Alcohol Comment Social [facility] Start: 11-01-[address] [facility] Start: 05-09-2011 End: 03-25-2023 History of tobacco use Current smoker [facility] How often to you hav e a drink containing alcohol? 4 or more times a week [facility] How many standard drinks containing alcohol do you have on a typical day? 3 or 4 [facility] How often do you hav e 6 or more drinks on 1 occasion? Weekly [facility] National Score (1-10 0), lower number is lower risk 59 [facility] Start: 1990 Sex Assigned At Male F [facility] Medical Equipment Procedure Code Equipment Code Equipment Origin al Text Equipment Identifier Dates Ring Lizett-Moreau Classic 34mm 39.2mm 32.3mm Oval Titanium Silicone - [id number] Start: 07-29-2016 Goals Date Patient Goal Desired Activity /State Personal health goal Clinical Notes 07-30-2016 to 11-01-2023 Esme Hdz MD - 11/01/2023 2:15 PM EDTMrhina Hdz MD - 10/20/2022 3:45 PM RT Mae(R) - 10/20/2022 9:00 AM EDTTelephone Encounter - Erica Patelalbaro - 07/04/2022 10:43 AM EST Note Date & Type Note Facility 11-01-2023 Note HNO ID: [id number] Author: ESME HDZ MD Service: ? Author Type: Physician Type: Progress Notes Filed: 11/05/2023 16:22 Note Text: [facility] [employer] ADULT CONGENITAL [facility] DISEASE [facility] OUTPATIENT VISIT DATE November 01, 2023 OUTPATIENT VISIT TYPE ESTABLISHED PRIMARY CARE PHYSICIAN: Carlos Arceo Sr. [address] [place] [address] CHIEF COMPLAINT: Follow up CONGENITAL CARDIAC HISTORY: Tricuspid valve dysplasia Diagnosed age 14 after chest pain led to cardiac testing Developed severe RV dilation and severe tricuspid regurgitation 07/29/16, TV repair (commissurotomy of all three commissures, papillary muscle mobilization, septal chordal ligation, 34 mm Lizett ring), Dr. Medina Intraoperative inspection: This is confirmed on exploration that this is not Ebstein's anomaly. There is no displacement of the septal leaflet. The annulus is severely dilated and all 3 leaflets are severely dysplastic. There is also lots of fenestrations in both the posterior and anterior leaflets. The valve is, however, amenable to homemade repair. Hypertension - Lisinopril 10 mg QD Recurrent chest pain episodes since surgery Anxiety/panic attacks INTERVAL HISTORY: Mr. Funes presents for follow up evaluation. I last saw him 09/2022. Since then he has largely been well and has been working on lifestyle changes. He has quit smoking and drinking (!) though is vaping. 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 He has gained some weight after quitting smoking - eating more and less active now at work. He quit the tramadol he was taking chronically (prescribed by his PCP) last week. He thinks he may have had mild withdrawal but is doing well now. Unfortunately he lost his mother recently - she had been complaining of neck pain for a few days and had a cardiac arrest at the hospital - autopsy with acute left circumflex occlusion. Mr. Funes was very close to his mom and is understandably still processing this loss. PAST MEDICAL HISTORY Diagnosis Date Hypertension Tricuspid leaflet abnormality Tricuspid regurgitation PAST SURGICAL HISTORY Procedure Laterality Date HEART CATHETERIZATION 02/2016 at [facility] HEART SURGERY HX 07/29/2016 s/p sternotomy, TV commissuroplasty, mobilization of anterior papillary muscles, dividing of chords, and insertion of CC annuloplasty ring #[id number] TONSILLECTOMY HX Social History Tobacco Use Smoking status: Former Packs/day: 0.25 Years: 7.00 Additional pack years: 0.00 Total pack years: 1.75 Types: Cigarettes Start date: 05/09/2011 Quit date: 03/25/2023 Years since quittin.6 Smokeless tobacco: Never Vaping Use Vaping Use: Some days Substances: Flavoring Substance Use Topics Alcohol use: Yes Comment: Social Drug use: No FAMILY HISTORY Problem Relation Age of Onset Hypertension Mother Hypertension Father Two kids, age 2 AND 5 (in 2023) healthy ALLERGIES Allergen Reactions Benedryl [Diphenhyd* Rash, Itching Penicillins Hives MEDICATIONS: famotidine (PEPCID) 20 mg tablet Take 20 mg by mouth twice daily as needed. lisinopril (ZESTRIL) 10 mg tablet Take 1 tablet by mouth once daily. REVIEW OF SYSTEMS: positives in bold GENERAL: Negative for: Weight loss or gain, Fever or Chills, Weakness and Sleep difficulties. HEENT: Negative for: Headache, Impaired Vision, Glasses, Hearing Impairment, Ringing in Ears, Nosebleeds, Poor Dental Care, Bleeding Gums and Dentures. NECK: Negative for: Swelling, Pain, Stiffness RESPIRATORY: Negative for: Cough, Blood in Sputum, Shortness of breath, Wheezing, Apnea GASTROINTESTINAL: Negative for: Trouble swallowing, Heartburn, Change in bowel habits, Blood in stool, Dark black stools MUSCULOSKELETAL: Negtive for: Muscle or joint pain, stiffness, Joint swelling NEUROLOGIC/PSYCHIATRIC: Negative for: Weakness, Paralysis, Numbness, Tingling, Tremor, Nervousness or anxiety, Depressed mood, Memory loss SKIN: Negative for: Rash, Itching HEMATOLOGICAL/LYMPHATIC: Negative for: Easy bruising, Easy bleeding ENDOCRINE: Negative for: Heat or Cold Intolerance, Excessive Sweating, Frequent Urination, Frequent Thirst PHYSICAL EXAMINATION: BP 128/86 (BP Site: Right Arm) Pulse 92 Wt 107.7 kg (237 lb 6.4 oz) SpO2 95% BMI 30.48 kg/m? General: Well appearing, in no acute distress. Skin: No clubbing, no cyanosis. Eyes: Extra ocular movements intact Neck: No jugular venous distention, carotids have a normal upstroke. Lungs: Clear to auscultation bilaterally, no wheezing or rhonchi. Heart: Regular rhythm, 1+ parasternal impulse, normal apex, normal S1, + closing click, normal S2, no murmurs. Abdomen: Soft, nontender, no palpable organomegaly. Extremities: No peripheral edema . Grade 2/4 distal pulses bilaterally. Neuro: Or (more content not included)... [facility] 11-01-2023 History of Presen t illness Narrative Images from the original note were not included. [facility] [employer] ADULT CON[facility]ITAL [facility] OUTPATIENT VISIT DATE November 01, 2023 OUTPATIENT VISIT TYPE ESTABLISHED PRIMARY CARE PHYSICIAN: Carlos Arceo Sr. [address] [place] [address] CHIEF COMPLAINT: Follow up CONGENITAL CARDIAC HISTORY: Tricuspid valve dysplasia Diagnosed age 14 after chest pain led to cardiac testing Developed severe RV dilation and severe tricuspid regurgitation 07/29/16, TV repair (commissurotomy of all three commissures, papillary muscle mobilization, septal chordal ligation, 34 mm Lizett ring), Dr. Medina Intraoperative inspection: This is confirmed on exploration that this is not Ebstein's anomaly. There is no displacement of the septal leaflet. The annulus is severely dilated and all 3 leaflets are severely dysplastic. There is also lots of fenestrations in both the posterior and anterior leaflets. The valve is, however, amenable to homemade repair. Hypertension - Lisinopril 10 mg QD Recurrent chest pain episodes since surgery Anxiety/panic attacks INTERVAL HISTORY: Mr. Funes presents for follow up evaluation. I last saw him 09/2022. Since then he has largely been well and has been working on lifestyle changes. He has quit smoking and drinking (!) though is vaping. 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 He has gained some weight after quitting smoking - eating more and less active now at work. He quit the tramadol he was taking chronically (prescribed by his PCP) last week. He thinks he may have had mild withdrawal but is doing well now. Unfortunately he lost his mother recently - she had been complaining of neck pain for a few days and had a cardiac arrest at the hospital - autopsy with acute left circumflex occlusion. Mr. Funes was very close to his mom and is understandably still processing this loss. PAST MEDICAL HISTORY Diagnosis Date Hypertension Tricuspid leaflet abnormality Tricuspid regurgitation PAST SURGICAL HISTORY Procedure Laterality Date HEART CATHETERIZATION 02/2016 at [facility] HEART SURGERY HX 07/29/2016 s/p sternotomy, TV commissuroplasty, mobilization of anterior papillary muscles, dividing of chords, and insertion of CC annuloplasty ring #34 TONSILLECTOMY HX Social History Tobacco Use Smoking status: Former Packs/day: 0.25 Years: 7.00 Additional pack years: 0.00 Total pack years: 1.75 Types: Cigarettes Start date: 05/09/2011 Quit date: 03/25/2023 Years since quittin.6 Smokeless tobacco: Never Vaping Use Vaping Use: Some days Substances: Flavoring Substance Use Topics Alcohol use: Yes Comment: Social Drug use: No FAMILY HISTORY Problem Relation Age of Onset Hypertension Mother Hypertension Father Two kids, age 2 & 5 (in 2023) healthy ALLERGIES Allergen Reactions Benedryl [Diphenhyd* Rash, Itching Penicillins Hives MEDICATIONS: famotidine (PEPCID) 20 mg tablet Take 20 mg by mouth twice daily as needed. lisinopril (ZESTRIL) 10 mg tablet Take 1 tablet by mouth once daily. REVIEW OF SYSTEMS: positives in bold GENERAL: Negative for: Weight loss or gain, Fever or Chills, Weakness and Sleep difficulties. HEENT: Negative for: Headache, Impaired Vision, Glasses, Hearing Impairment, Ringing in Ears, Nosebleeds, Poor Dental Care, Bleeding Gums and Dentures. NECK: Negative for: Swelling, Pain, Stiffness RESPIRATORY: Negative for: Cough, Blood in Sputum, Shortness of breath, Wheezing, Apnea GASTROINTESTINAL: Negative for: Trouble swallowing, Heartburn, Change in bowel habits, Blood in stool, Dark black stools MUSCULOSKELETAL: Negtive for: Muscle or joint pain, stiffness, Joint swelling NEUROLOGIC/PSYCHIATRIC: Negative for: Weakness, Paralysis, Numbness, Tingling, Tremor, Nervousness or anxiety, Depressed mood, Memory loss SKIN: Negative for: Rash, Itching HEMATOLOGICAL/LYMPHATIC: Negative for: Easy bruising, Easy bleeding ENDOCRINE: Negative for: Heat or Cold Intolerance, Excessive Sweating, Frequent Urination, Frequent Thirst PHYSICAL EXAMINATION: BP 128/86 (BP Site: Right Arm) Pulse 92 Wt 107.7 kg (237 lb 6.4 oz) SpO2 95% BMI 30.48 kg/m General: Well appearing, in no acute distress. Skin: No clubbing, no cyanosis. Eyes: Extra ocular movements intact Neck: No jugular venous distention, carotids have a normal upstroke. Lungs: Clear to auscultation bilaterally, no wheezing or rhonchi. Heart: Regular rhythm, 1+ parasternal impulse, normal apex, normal S1, + closing click, normal S2, no murmurs. Abdomen: Soft, nontender, no palpable organomegaly. Extremities: No peripheral edema . Grade 2/4 distal pulses bilaterally. Neuro: Oriented to person, place and time, alert, cooperative, gait coordinated. CARDIOVASCULAR MEDICINE TESTING: ECG 11/01/23: TTE 11/01/23: - The left ventricle is normal in size. Left ventricular systolic function is normal. EF = 57 5% (2D biplane) Normal left ventricular diastolic function. - The right ventricle is mildly dilated. Right ventricular systolic function is low normal. - Post tricuspid valve repair. tricuspid valve annuloplasty ring (size #34). There is mild (1+ - 2+) tricuspid valve regurgitation. The peak gradient is 8 mmHg and the mean gradient is 4 mmHg. - Estimated right ventricular systolic pressure is 28 mmHg consistent with normal pulmonary artery pressures. Estimated right atrial pressure is 3 mmHg based on IVC assessment. - Exam was compared with the prior echocardiographic exam performed on 10/20/2022. Slightly less tricuspid regurgitation noted today. Otherwise similar findings. Metabolic exercise test 11/01/23: - EXERCISE RESPONSE: Maximal aerobic effort (pRER). Mildly abnormal aerobic capacity (pVO2). Abnormal circulatory limitation pattern. - CARDIOVASCULAR RESPONSE: Abnormal stroke volume response (pVO2/HR). Normal heart rate response (pHR). Abnormal chronotropic index (CI). Resting hypertension and Normal BP response (pBP). Arrhythmias: No arrhythmias . ST segment and T-wave changes: No ST changes. - PULMONARY RESPONSE: There was no clinically significant oxygen desaturation during exercise (SpO2). Normal ventilatory reserve (pVE). Normal ventilatory pattern. Mildly abnormal ventilatory efficiency (VE/VCO2 slope). Absent exercise oscillatory ventilation (EOV). - CONCLUSION: Mildly abnormal functional capacity. Peak RER: 1.10 [1.1 - 1.50] Peak VO2: 68.6% [>85% pred peak VO2] Peak VO2: 24.3 ml/kg/min Cardiac MRI 10/20/22: 1. Status post complex repair of tricuspid valve with an annuloplasty ring (Lizett Classic annuloplasty ring #34) along with a commissuroplasty. The valve leaflets are mildly thickened and there is mild tricuspid regurgitation (RF 5-10%, eccentric laterally and inferiorly directed jet of regurgitation). 2. The left ventricle is normal in size (LVEDVi = 78 cc/m2) with mildly impaired systolic function (LVEF = 52 %). 3. The right ventricle is mildly dilated (RVEDVi = 108 cc/m2) with mildly impaired systolic function (RVEF = 43 %). Exercise VO2 06/05/17: 1. THE TEST WAS TERMINATED DUE TO GENERAL FATIGUE. 2. NORMAL CHRONOTROPIC REPONSE INDEX (>0.8 NOT ON BETA-VENUS), ADEQUATE HEART RATE RESPONSE OF 99% PREDICTED MAXIMAL HEART RATE, NORMAL HEART RATE RECOVERY @ 1 MINUTE POST EXERCISE. 3. FUNCTIONAL CAPACITY WAS MEASURED AT 6.8 METS, STAGE 6 DENICE 10.0% PROTOCOL. THIS REPRESENTS MARKED FUNCTIONAL AEROBIC IMPAIRMENT OF 55%. [place] [address], POOR FUNCTIONAL CAPACITY FOR AGE AND GENDER. HIGH RISK. 4. NORMAL BLOOD PRESSURE RESPONSE TO STRESS. 5. NORMAL ST SEGMENT RESPONSE TO STRESS. 6. NORMAL HANSON TREADMILL SCORE (>/=5). 7. ANGINA WAS NOT PROVOKED BY STRESS. 8. NO ARRHYTHMIAS WERE NOTED AT REST OR DURING STRESS. Peak VO2 (30 sec avg) = 23.9 ml/kg/min at RER =1.17 (good effort), which corresponds to 45% of predicted peak VO2 (based on percent functional aerobic impairment). I have personally reviewed the Electrocardiogram, Echocardiogram, labs, and MRI LABS: Reviewed. ASSESSMENT: 33 year old with tricuspid valve dysplasia s/p repair in 2017 with moderate residual TR. Echo findings have been stable for some time with moderate residual TR and mildly dilated and dysfunctional RV. Doing well this year with stable exam & echo. We discussed many aspects of the patient's care going forward and agreed upon the following plan: PLAN: - Continue annual follow up with TTE surveillance of TR I spent a total of 45 minutes on the date of the service which included preparing to see the patient, [id number] patient care, completing clinical documentation, obtaining and/or reviewing separately obtained history, performing a medically appropriate examination, counseling and educating the patient/family/caregiver, ordering medications, tests, or procedures, communicating with other HCPs (not separately reported), independently interpreting results (not separately reported), and care coordination (not separately reported). Esme Hdz MD Adult Congenital Heart Disease Heart [facility] Desk J2-4 Appointments: [phone] documented in this encounter [facility] 10-20-2022 History of Presen t illness Narrative Images from the original note were not included. [facility] ADULT CONGENITAL [facility]ART DISEASE [facility] OUTPATIENT VISIT DATE October 20, 2022 OUTPATIENT VISIT TYPE ESTABLISHED PRIMARY CARE PHYSICIAN: Carlos Arceo Sr. [address] [facility] [place] [address] CHIEF COMPLAINT: Follow up CONGENITAL CARDIAC HISTORY: Tricuspid valve dysplasia Diagnosed age 14 after chest pain led to cardiac testing Developed severe RV dilation and severe tricuspid regurgitation 07/29/16, TV repair (commissurotomy of all three commissures, papillary muscle mobilization, septal chordal ligation, 34 mm Lizett ring), Dr. Medina Intraoperative inspection: This is confirmed on exploration that this is not Ebstein's anomaly. There is no displacement of the septal leaflet. The annulus is severely dilated and all 3 leaflets are severely dysplastic. There is also lots of fenestrations in both the posterior and anterior leaflets. The valve is, however, amenable to homemade repair. Recurrent chest pain episodes since surgery Anxiety/panic attacks INTERVAL HISTORY: Mr. Allie Funes is a 32 yo male with tricuspid dysplasia (s/p repair 07/29/2016) who returns for follow up evaluation. He reports that since last visit in 06/2022 he has continued to have chest discomfort but it is improved in frequency. He reports that there is some discomfort, but the predominant symptom is numbness/tingling that arises from his lateral chest and radiates down his left arm to the fingertips. He reports that the symptoms start both with rest or stress; once present, he says that his symptoms become worse when he is dwelling on them. He also notes that after a physically strenuous day of work he usually always becomes symptomatic the next day. 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 He denies ever having any neck or chest injury. PAST MEDICAL HISTORY Diagnosis Date Hypertension Tricuspid leaflet abnormality Tricuspid regurgitation PAST SURGICAL HISTORY Procedure Laterality Date HEART CATHETERIZATION 02/2016 at [facility] HEART SURGERY HX 07/29/2016 s/p sternotomy, TV commissuroplasty, mobilization of anterior papillary muscles, dividing of chords, and insertion of CC annuloplasty ring #34 TONSILLECTOMY HX Social History Tobacco Use Smoking status: Every Day Packs/day: 0.25 Years: 7.00 Pack years: 1.75 Types: Cigarettes Start date: 05/09/2011 Smokeless tobacco: Never Vaping Use Vaping Use: Some days Substance Use Topics Alcohol use: Yes Comment: Social Drug use: No FAMILY HISTORY Problem Relation Age of Onset Hypertension Mother Hypertension Father ALLERGIES Allergen Reactions Benedryl [Diphenhyd* Rash, Itching Penicillins Hives MEDICATIONS: famotidine (PEPCID) 20 mg tablet^Take 20 mg by mouth twice daily as needed.^Disp: ^Rfl: ibuprofen (MOTRIN) 200 mg tablet^Take 200 mg by mouth every 6 hours as needed.^Disp: ^Rfl: lisinopril (ZESTRIL, PRINIVIL) 10 mg tablet^Take 10 mg by mouth once daily.^Disp: ^Rfl: traMADol (ULTRAM) 50 mg tablet^Take 1 tablet by mouth every 12 hours as needed.^Disp: 30 tablet^Rfl: 0 (Patient taking differently: Take 50 mg by mouth as needed.) iv contrast (will be provided with radiology test)^MRI Cardiac w/Qflow Inject, intravenously, once for 1 dose. No IV access, insert saline lock prior to the beginning of sedation, infusion, injection of imaging exam. Discontinue saline lock post exam. If Pt has a central line or IVAD, may access for administration according to line specific nursing protocol. Once exam is complete flush line and de-access according to line specific nursing protocol in the MR contrast administration guidelines link^Disp: 1 Each^Rfl: 0 (Patient not taking: Reported on 10/20/2022) REVIEW OF SYSTEMS: positives in bold GENERAL: Negative for: Weight loss or gain, Fever or Chills, Weakness and Sleep difficulties. HEENT: Negative for: Headache, Impaired Vision, Glasses, Hearing Impairment, Ringing in Ears, Nosebleeds, Poor Dental Care, Bleeding Gums and Dentures. NECK: Negative for: Swelling, Pain, Stiffness RESPIRATORY: Negative for: Cough, Blood in Sputum, Shortness of breath, Wheezing, Apnea GASTROINTESTINAL: Negative for: Trouble swallowing, Heartburn, Change in bowel habits, Blood in stool, Dark black stools MUSCULOSKELETAL: Negtive for: Muscle or joint pain, stiffness, Joint swelling NEUROLOGIC/PSYCHIATRIC: Negative for: Weakness, Paralysis, Numbness, Tingling, Tremor, Nervousness or anxiety, Depressed mood, Memory loss SKIN: Negative for: Rash, Itching HEMATOLOGICAL/LYMPHATIC: Negative for: Easy bruising, Easy bleeding ENDOCRINE: Negative for: Heat or Cold Intolerance, Excessive Sweating, Frequent Urination, Frequent Thirst PHYSICAL EXAMINATION: BP 130/85 (BP Site: Right Arm) Pulse 88 Wt 103.4 kg (228 lb) SpO2 98% BMI 29.27 kg/m General: Well appearing, in no acute distress. Skin: No clubbing, no cyanosis. Eyes: Extra ocular movements intact Neck: No jugular venous distention, carotids have a normal upstroke. Lungs: Clear to auscultation bilaterally, no wheezing or rhonchi. Heart: Regular rhythm, 1+ parasternal impulse, normal apex, normal S1, + closing click, normal S2, no murmurs. Abdomen: Soft, nontender, no palpable organomegaly. Extremities: No peripheral edema . Grade 2/4 distal pulses bilaterally. Neuro: Oriented to person, place and time, alert, cooperative, gait coordinated. CARDIOVASCULAR MEDICINE TESTING: Cardiac MRI 10/20/22: 1. Status post complex repair of tricuspid valve with an annuloplasty ring (Lizett Classic annuloplasty ring #34) along with a commissuroplasty. The valve leaflets are mildly thickened and there is mild tricuspid regurgitation (RF 5-10%, eccentric laterally and inferiorly directed jet of regurgitation). 2. The left ventricle is normal in size (LVEDVi = 78 cc/m2) with mildly impaired systolic function (LVEF = 52 %). 3. The right ventricle is mildly dilated (RVEDVi = 108 cc/m2) with mildly impaired systolic function (RVEF = 43 %). TTE 10/20/22: - The left ventricle is normal in size. Left ventricular systolic function is normal. EF = 54 5% (2D biplane) Grade I left ventricular diastolic dysfunction. - The right ventricle is mildly dilated. Right ventricular systolic function is mildly decreased. - The right atrial cavity is mildly dilated. - Tricuspid valve annuloplasty ring (size #34). There is moderate (2+ - 3+) tricuspid valve regurgitation. The peak gradient is 8 mmHg and the mean gradient is 4 mmHg. Prior echo noted TVr pk/mn gradients of 7/3 mmHg with 2-3+TR and a RVSP of 33 mmHg. - Estimated right ventricular systolic pressure is 36 mmHg consistent with mild pulmonary hypertension. Estimated right atrial pressure is 3 mmHg based on IVC assessment. - Exam was compared with the prior echocardiographic exam performed on 06/30/2022. Stable findings. ECG 10/20/22: Exercise VO2 06/05/17: 1. THE TEST WAS TERMINATED DUE TO GENERAL FATIGUE. 2. NORMAL CHRONOTROPIC REPONSE INDEX (>0.8 NOT ON BETA-VENUS), ADEQUATE HEART RATE RESPONSE OF 99% PREDICTED MAXIMAL HEART RATE, NORMAL HEART RATE RECOVERY @ 1 MINUTE POST EXERCISE. 3. FUNCTIONAL CAPACITY WAS MEASURED AT 6.8 METS, STAGE 6 DENICE 10.0% PROTOCOL. THIS REPRESENTS MARKED FUNCTIONAL AEROBIC IMPAIRMENT OF 55%. [place] [address], POOR FUNCTIONAL CAPACITY FOR AGE AND GENDER. HIGH RISK. 4. NORMAL BLOOD PRESSURE RESPONSE TO STRESS. 5. NORMAL ST SEGMENT RESPONSE TO STRESS. 6. NORMAL HANSON TREADMILL SCORE (>/=5). 7. ANGINA WAS NOT PROVOKED BY STRESS. 8. NO ARRHYTHMIAS WERE NOTED AT REST OR DURING STRESS. Peak VO2 (30 sec avg) = 23.9 ml/kg/min at RER =1.17 (good effort), which corresponds to 45% of predicted peak VO2 (based on percent functional aerobic impairment). I have personally reviewed the Electrocardiogram, Echocardiogram, labs, and MRI LABS: Reviewed. 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 Echo findings have been stable for some time with moderate residual TR and mildly dilated and dysfunctional RV. He is able to be active at work but continues to struggle with intermittent non-exertional chest pain. He returns for additional testing today (CMR) which is reassuring and overall stable from prior. We discussed many aspects of the patient's care going forward and agreed upon the following plan: PLAN: - Continue annual follow up with TTE surveillance of TR - Will plan for exercise test next year - Chest/arm pain is likely musculoskeletal and seems to be bothering him less overall, at present. Will discuss next visit, could consider ortho or neuro evaluation. I spent a total of 45 minutes on the date of the service which included preparing to see the patient, [id number] patient care, completing clinical documentation, obtaining and/or reviewing separately obtained history, performing a medically appropriate examination, counseling and educating the patient/family/caregiver, ordering medications, tests, or procedures, communicating with other HCPs (not separately reported), independently interpreting results (not separately reported), and care coordination (not separately reported). Esme Hdz MD Adult Congenital Heart Disease Heart [facility] Desk J2-4 Appointments: [phone] documented in this encounter [facility] 10-20-2022 History of Presen t illness Narrative Radiology Service Progress Note PATIENT NAME: Allie Funes DATE OF SERVICE: October 20, 2022 TIME: 10:13 AM PATIENT IDENTITY VERIFICATION COMPLETED USING TWO (2) IDENTIFIERS: Name and Date of confirmed by patient verbally and Name and Date of confirmed by identification band. FALL SCREENING: Has the patient had 2 falls in the last year or 1 fall with injury or currently using an Ambulatory Assistive Device (Walker, Cane, Wheelchair, Crutches, etc.)? No PATIENT GENDER DATA: Male PATIENT RELEVANT IMPLANT DATA REVIEWED: Yes RADIOLOGY DEPARTMENT: MR; Exam(s) Completed: Cardiac: Cardiac PERIPHERAL IV DATA: Not applicable. No contrast given. SIGNED BY: RT Jerry(R) October 20, 2022 10:13 AM documented in this encounter [facility] 07-04-2022 Miscellaneous Notes Spoke to patients mom aware of appointments and let her know reminder has been sent in the mail Erica Maldonado July 04, 2022 10:43 AM documented in this encounter [facility] 04-12-2021 Evaluation note Encounter Date Diagnosis Assessment Notes Mar, Injury of right hand, initial encounter (ICD-10 - S69.91XA) Mar, Fracture of middle phalanx of finger of right hand (ICD-10 - S62.629A) Use RICE therapy as discussed: Rest, Ice Compression, Elevate. Apply ice to affected area 3-4 times daily (Do not place ice source directly on skin, must cover with towel-like material). Take medication as directed. Rest and elevate sore extremity as much as possible. Do not take OTC medication pain relievers if prescription of medication given in office today. 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 documented as of this encounter (statuses as of 07/04/2022) [facility] History of Past illness Narrative* Problem Noted Date Resolved Date Anxiety 07/30/2016 08/01/2016 Congenital anomaly of heart 10/16/200811/2016 Palpitations 05/11/2006 10/16/2008 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 documented as of this encounter (statuses as of 09/05/2022) [facility] History of Past illness Narrative* Problem Noted Date Resolved Date Anxiety 07/30/2016 08/01/2016 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 Palpitations 05/11/2006 10/16/2008 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 documented as of this encounter (statuses as of 10/20/2022) [facility] History of Past illness Narrative* Problem Noted Date Resolved Date Anxiety 07/30/2016 08/01/2016 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 Palpitations 05/11/2006 10/16/2008 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 documented as of this encounter (statuses as of 10/21/2022) [facility] History of Past illness Narrative* Problem Noted Date Resolved Date Anxiety 07/30/2016 08/01/2016 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 Palpitations 05/11/2006 10/16/2008 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 documented as of this encounter (statuses as of 10/25/2022) [facility] [place] [facility]* Diagnosis S/P tricuspid valve repair- Primary Other postprocedural status documented in this encounter [facility] note* 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 documented in this encounter [facility] note* Diagnosis Cardiomyopathy, unspecified type (HCC) documented in this encounter [facility] note* 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 documented in this encounter [facility] note* Diagnosis Dysplastic tricuspid valve Other specified congenital anomaly of heart Cardiomyopathy, unspecified type (HCC) documented in this encounter [facility] note* 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 tricuspid valve repair Other postprocedural status documented in this encounter [facility] note* 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 tricuspid valve repair Other postprocedural status Primary hypertension Unspecified essential hypertension Obesity, Class I, BMI 30-34.9 Obesity, unspecified documented in this encounter [facility] noteNo assessment information availableA[facility] Work Phone: Evaluation note* Diagnosis Onset Date Resolution Status Contusion of hand, right acu te [facility] Work Phone: History general Narrative - Reported* Type Description Date Medical History triscupid valve leaks Medical History htn Surgical History appendectomy Surgical History heart valve Hospitalization History see above surg [employer] Other Reason for referral (narrative)* Outpatient Procedure (Routine) - Pending Review Specialty Diagnoses / Procedures Referred By Ariela brown Referred To Contact [facility] Diagnoses S/P tricuspid valve repair Procedures ECHO ECHO TTHRC R-T 2D W/WOM-MODE COMPL SPEC&COLR D Esme Hdz MD [address] [place] [address] [facility] [address] [address] Referral ID Status Reason Start Date Expiration Date Visits Requested Visits Authorized [id number] Pending Review Auto-Generat ed Referral 05/30/2022 05/30/2023 1 1 * Outpatient Procedure (Routine) - Authorized Specialty Diagnoses / Procedures Referred By Contac t Referred To Contact [facility] [place] Diagnoses S/P tricuspid valve repair Procedures ECG COMPLETE ECG ROUTINE ECG W/LEAST 12 LDS W/I&R Esme Hdz MD [address] [facility] [place] [address] [address] Referral ID Status Reason Start Date Expiration Date Visits Requested Visits Authorized [id number] Authorized Auto-Generat ed Referral 05/30/2022 05/30/2023 1 1 [facility] for referral (narrative)* Outpatient Procedure (Routine) - Pending Review Specialty Diagnoses / Procedures Referred By Contac t Referred To Contact [facility] [place] Diagnoses Dysplastic tricuspid valve Procedures ECHO ECHO TTHRC R-T 2D W/WOM-MODE COMPL SPEC&COLR D Esme Hdz MD [address] [place] [address] [address] Referral ID Status Reason Start Date Expiration Date Visits Requested Visits Authorized [id number] Pending Review Auto-Generat ed Referral 09/05/2022 09/05/2023 1 1 [facility] for referral (narrative)* Outpatient Procedure (Routine) - Pending Review Specialty Diagnoses / Procedures Referred By Contac t Referred To Contact [facility] Diagnoses Dysplastic tricuspid valve Procedures ECG COMPLETE ECG ROUTINE ECG W/LEAST 12 LDS W/I&R Esme Hdz MD [address] [place] [address] [place] [address] [place] [address] Referral ID Status Reason Start Date Expiration Date Visits Requested Visits Authorized [id number] Pending Review Auto-Generat ed Referral 10/24/2022 10/24/2023 1 1 * Outpatient Procedure (Routine) - Pending Review Specialty Diagnoses / Procedures Referred By Contac t Referred To Contact [facility] Diagnoses Dysplastic tricuspid valve Procedures ECHO SPECIALIST COMPLEX ADULT CONGENITAL ECHO TTHRC R-T 2D W/WOM-MODE COMPL SPEC&Esme Hawk MD [address] [place] [address] [address] Referral ID Status Reason Start Date Expiration Date Visits Requested Visits Authorized [id number] Pending Review Auto-Generat ed Referral 10/24/2022 10/24/2023 1 1 [facility] for referral (narrative)* Outpatient Procedure (Routine) - Pending Review Specialty Diagnoses / Procedures Referred By Contregina t Referred To Contact [facility] Diagnoses Dysplastic tricuspid valve Procedures ECHO SPECIALIST COMPLEX ADULT CONGENITAL ECHO TTHRC R-T 2D W/WOM-MODE COMPL SPECEsme Rehman MD [address] [place] [address] [address] Referral ID Status Reason Start Date Expiration Date Visits Requested Visits Authorized [id number] Pending Review Auto-Generat ed Referral 11/05/2023 11/04/2024 1 1 * Outpatient Procedure (Routine) - Pending Review Specialty Diagnoses / Procedures Referred By Contac t Referred To Contact [facility] Diagnoses Dysplastic tricuspid valve Procedures ECG COMPLETE ECG ROUTINE ECG W/LEAST 12 LDS W/I&R Esme Hdz MD [address] [place] [address] [address] Referral ID Status Reason Start Date Expiration Date Visits Requested Visits Authorized [id number] Pending Review Auto-Generat ed Referral 11/05/2023 11/04/2024 1 1 * Transition of Care (Routine) - Ref Not Required Specialty Diagnoses / Procedures Referred By Ariela brown Referred To Contact [facility] Procedures CARDIOVASCULAR MEDICINE OP FOLLOW UP APPT ORDER Esme Hdz MD [address] [place] [address] [place] [address] Referral ID Status Reason Start Date Expiration Date Visits Requested Visits Authorized [id number] Ref Not Required PCP Requested Referral 08/06/2024 11/04/2024 1 1 * Outpatient Procedure (Routine) - Closed Specialty Diagnoses / Procedures Referred By Ariela brown Referred To Contact [facility] Diagnoses Dysplastic tricuspid valve Procedures ECHO SPECIALIST COMPLEX ADULT CONGENITAL ECHO TTHRC R-T 2D W/WOM-MODE COMPL SPEC&[place] [address] [place] [address] [address] Referral ID Status Reason Start Date Expiration Date V isits Requested Visits Authorized [id number] Closed Auto-Generate d Referral 11/01/2023 10/31/2024 1 1 [facility] Summary Purpose Family History No Family History Records FoundNo Family History Records FoundNo Family History Records Found Advance Directives No Advanced Directives Records Found Advance Directive Response Recorded Date/ Time Advance Directives No April 17, 2021 2:01pm Reason for Referral Specialty Diagnoses / Procedures Referred By Ariela brown Referred To Contact [facility] Diagnoses Dysplastic tricuspid valve Procedures MRA CHEST CARDIOVASCULAR WO IVCON MRA CHEST [place] [address] [place] [address] Mr Imaging Referral ID Status Reason Start Date Expiration Date V isits Requested Visits Authorized [id number] Closed Auto-Generate d Referral 10/20/2022 11/19/2023 1 1 Specialty Diagnoses / Procedures Referred By Contac t Referred To Contact [facility] Diagnoses Cardiomyopathy, unspecified type (HCC) Procedures MRI CARDIAC MORPH FUNC WO IVCON CARDIAC MRI MORPHOLOGY & FUNCTION W/O CONTRAST Esme Hdz MD [address] [place] [address] Mr Imaging Referral ID Status Reason Start Date Expiration Date V isits Requested Visits Authorized [id number] Closed Auto-Generate d Referral 10/20/2022 11/19/2023 1 1 Chief Complaint and Reason for Visit Chief Complaint Right hand pain with injury Chief Complaint Right hand pain with injury [id number] Reason for Visit Contusion of hand, r ight Additional Source Comments REASON FOR VISIT (unrecogniz ed section and content) Reason Comments Appointment Specialty Diagnoses / Procedures Referred By Contac t Referred To Contact [facility] Diagnoses Dysplastic tricuspid valve Procedures MRI CARDIAC MORPH FUNC WO/W IVCON CARDIAC MRI W/WO CONTRAST & FURTHER SEQ Esme Hdz MD [address] [place] [address] Mr Imaging Referral ID Status Reason Start Date Expiration Date V isits Requested Visits Authorized [id number] Closed Auto-Generate d Referral 07/01/2022 07/31/2023 1 1 Reason Comments est clinical Source Comments (unrecognize d section and content) In the event this informatio n is protected by the Federal Confidentiality of Alcohol and Drug Abuse Patient Records regulations: The Federal rules restrict any use of the information to criminally investigate or prosecute any alcohol or drug abuse patient.[facility] the event this information is protected by the Federal Confidentiality of Alcohol and Drug Abuse Patient Records regulations: The Federal rules restrict any use of the information to criminally investigate or prosecute any alcohol or drug abuse patient.[facility] the event this information is protected by the Federal Confidentiality of Alcohol and Drug Abuse Patient Records regulations: The Federal rules restrict any use of the information to criminally investigate or prosecute any alcohol or drug abuse patient.[facility] the event this information is protected by the Federal Confidentiality of Alcohol and Drug Abuse Patient Records regulations: The Federal rules restrict any use of the information to criminally investigate or prosecute any alcohol or drug abuse patient.[facility] the event this information is protected by the Federal Confidentiality of Alcohol and Drug Abuse Patient Records regulations: The Federal rules restrict any use of the information to criminally investigate or prosecute any alcohol or drug abuse patient.[facility] the event this information is protected by the Federal Confidentiality of Alcohol and Drug Abuse Patient Records regulations: The Federal rules restrict any use of the information to criminally investigate or prosecute any alcohol or drug abuse patient.[facility] the event this information is protected by the Federal Confidentiality of Alcohol and Drug Abuse Patient Records regulations: The Federal rules restrict any use of the information to criminally investigate or prosecute any alcohol or drug abuse patient.[facility] the event this information is protected by the Federal Confidentiality of Alcohol and Drug Abuse Patient Records regulations: The Federal rules restrict any use of the information to criminally investigate or prosecute any alcohol or drug abuse patient.[facility] Care Teams (unrecognized sec tion and content) Library Consultant Relationship Specialty Start Date End Date Carlos Arceo Sr. [address] [place], [place] [id number] PCP - General Family Medicine 10/15/20 Esme Hdz MD [address] [place] [address] Primary Staff Physician Cardiology 08/18/21 Library Consultant Relationship Specialty Start Date End Date Carlos Arceo Sr. [address] [place] [address] PCP - General Family Medicine 10/15/20 Esme Hdz MD [address] [place] [address] Primary Staff Physician Cardiology 08/18/21 Library Consultant Relationship Specialty Start Date End Date Carlos Arceo Sr. [address] [place] [place] [address] PCP - General Family Medicine 10/15/20 Esme Hdz MD [address] [place] [address] Primary Staff Physician Cardiology 08/18/21 Library Consultant Relationship Specialty Start Date End Date Carlos Arceo Sr. [address] [place] [address] PCP - General Family Medicine 10/15/20 Esme Hdz MD [address] [place] [address] Primary Staff Physician Cardiology 08/18/21 Library Consultant Relationship Specialty Start Date End Date Carlos Arceo Sr. [address] [place] [place] [address] PCP - General Family Medicine 10/15/20 Esme Hdz MD [address] [place] [address] Primary Staff Physician Cardiology 08/18/21 Library Consultant Relationship Specialty Start Date End Date Carlos Arceo Sr. [address] [place] [address] PCP - General Family Medicine 10/15/20 Esme Hdz MD [address] [place] [address] Primary Staff Physician Cardiology 08/18/21 Library Consultant Relationship Specialty Start Date End Date Carlos Arceo Sr. [address] [place] [address] PCP - General Family Medicine 10/15/20 Esme Hdz MD [address] [place] [address] Primary Staff Physician Cardiology 08/18/21 Library Consultant Relationship Specialty Start Date End Date Carlos Arceo Sr., PCP - General Family Medicine 10/15/20 Esme Hdz MD [address] [place] [address] Primary Staff Physician Cardiology 08/18/21 Team Status: Active Member Role Status Dates PHYSICIAN NO FAMILY Primary Care Provider Active Team Status: Inactive Member Role Status Dates PHYSICIAN NO FAMILY Primary Care Provider Active Start: December 29, 2023 End: December 29, 2023 Teresa Ojeda APRN Attending Provider Active S tart: December 29, 2023 End: December 29, 2023 Team Status: Active Member Role Status Dates PHYSICIAN NO FAMILY Primary Care Provider Active Start: December 29, 2023 Teresa Ojeda APRN Attending Provider Active S tart: December 29, 2023 (unrecognized sect ion and content) No Status Records FoundNo Status Records FoundNo Status Records Found INFORMATION SOURCE (unrecogn ized section and content) DATE CREATED AUTHOR 06/28/2022 Brien lopes DATE CREATED AUTHOR AUTHOR'S ORGANIZ ATION 11/13/2023 [facility] DATE CREATED AUTHOR AUTHOR'S ORGANIZ ATION 01/11/2024 [facility] Goals (unrecognized section and content) Goals may be documented in a n alternate section FOR RECORDS PERTAINING TO PATIENTS WHO ARE OR HAVE BEEN ENROLLED IN A CHEMICAL DEPENDENCY/SUBSTANCEABUSE PROGRAM, SOME INFORMATION MAY BE OMITTED. This clinical summary was aggregated from multiple sources. Caution should be exercised in using it in the provision of clinical care. This summary normalizes information from multiple sources, and as a consequence, information in this document may materially change the coding, format and clinical context of patient data. In addition, data may be omitted in some cases. CLINICAL DECISIONS SHOULD BE BASED ON THE PRIMARY CLINICAL RECORDS. [facility] [employer] [facility]. provides no warranty or guarantee of the accuracy or completeness of information in this document.
[2024-06-17 20:21] VITALS: BP 136/82; PULSE 81; TEMP 36.8; O2SAT 97; BMI 31.5
--- NOTE | 2024-06-17 20:38 | XR_ITS ---
The [address] [address] Patient Name: ALLIE TORRE MRN: [id number] date: 1990 Sex: M Assigned Patient Location: ER Current Patient Location: ER Accession/Order Number: [id number] Exam Date: 06/17/2024 20:50 Report Date: 06/17/2024 22:17 At the request of: GEORGIANA LYLE Procedure: XR shoulder LT min 2V EXAM: XR shoulder LT min 2V HISTORY: Left arm pain COMPARISON: None. TECHNIQUE: 3 views of the left shoulder FINDINGS: No acute fracture. Sclerosis of the proximal humerus, likely bone island. Normal acromioclavicular and glenohumeral alignment. Visualized left lung clear. Poststernotomy changes. Valvular prosthesis. XR/XR shoulder LT min 2V IMPRESSION: No acute osseous abnormality or significant arthrosis. Electronically authenticated by: ORLY COATES Date: 06/17/2024 22:17
--- NOTE | 2024-06-17 20:38 | XR_ITS ---
The [address] [address] Patient Name: ALLIE TORRE MRN: [id number] date: 1990 Sex: M Assigned Patient Location: ER Current Patient Location: ER Accession/Order Number: [id number] Exam Date: 06/17/2024 20:50 Report Date: 06/17/2024 22:20 At the request of: GEORGIANA LYLE Procedure: XR cervical spine 2-3V EXAM: XR cervical spine 2-3V HISTORY: Neck pain COMPARISON: Cervical spine radiographs 08/28/2023 TECHNIQUE: 3 views of the cervical spine FINDINGS: 7 cervical levels. Minimal retrolisthesis of C5 on C6. Otherwise normal alignment. Disc heights maintained. No significant facet arthrosis. Normal prevertebral soft tissues. Atlantooccipital and atlantoaxial alignment maintained. Sternotomy wires noted. Lung apices clear. XR/XR cervical spine 2-3V IMPRESSION: No radiographic evidence of cervical spine fracture or subluxation. No significant degenerative disease. Electronically authenticated by: ORLY COATES Date: 06/17/2024 22:20
--- NOTE | 2024-06-17 20:38 | XR_ITS ---
The [address] [address] Patient Name: ALLIE TORRE MRN: [id number] date: 1990 Sex: M Assigned Patient Location: ER Current Patient Location: Accession/Order Number: [id number] Exam Date: 06/17/2024 20:50 Report Date: 06/17/2024 22:15 At the request of: GEORGIANA LYLE Procedure: XR chest 1V CXR HISTORY: Chest pain COMPARISON: 05/22/2024 chest x-ray TECHNIQUE: 1 view chest submitted for review. FINDINGS: Mediastinal wires are aligned and intact. The lungs are adequately expanded without evidence of acute infiltrate or effusion. The cardiac silhouette measures within normal. Pulmonary vascularity is unremarkable. Osseous structures do not demonstrate any acute abnormality. XR/XR chest 1V IMPRESSION: Stable postoperative changes of the mediastinum. Electronically authenticated by: KIERA HANSEN Date: 06/17/2024 22:15
--- NOTE | 2024-06-17 20:38 | ECG_ITS ---
The 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
--- NOTE | 2024-06-17 20:40 | ED_ITS ---
HPI - Chest Pain General Chief Complaint: Chest Pain Stated Complaint: chest pain Time Seen by Provider: 06/17/24 20:32 Source: patient History of Present Illness HPI narrative: Patient is a 34-year-old male with a history of tricuspid valve surgery who presents to the emergency department for pain in the left side of the chest with radiation from the left shoulder, neck and left scapula. He reports clicking sensations to his shoulders. He had tricuspid valve surgery 7 years ago at the [facility]. He has been seen in this emergency department multiple times in the past for chest pain, he admits he has anxiety related to his previous surgery. He reports pain in the left arm with occasional heaviness and tingling. Pain has been present for the last several days. He reports some soreness to the neck as well. No falls or injuries. The left arm has not been swollen or red. Related Data Home Medications ?Medication ?Instructions ?Recorded ?Confirmed lisinopril 10 mg tablet 10 mg PO DAILY 01/12/23 06/17/24 omeprazole 20 mg capsule,delayed 20 mg PO DAILY 06/17/24 06/17/24 release Previous Rx's ?Medication ?Instructions ?Recorded ketorolac 10 mg tablet 10 mg PO TID PRN pain #10 tabs 06/17/24 methocarbamol 750 mg tablet 750 mg PO TID PRN pain #20 tabs 06/17/24 Allergies Allergy/AdvReac Type Severity Reaction Status Date / Time diphenhydramine (From Allergy Severe Unknown Verified 06/17/24 20:30 Benadryl) Penicillins Allergy Severe Unknown Verified 06/17/24 20:30 Review of Systems ROS Constitutional Denies: fever or chills Ears, nose, mouth, and throat Denies: throat pain or nasal congestion Cardiovascular Reports: chest pain Respiratory Denies: shortness of breath or cough Gastrointestinal Denies: nausea or vomiting Musculoskeletal Reports: neck pain and extremity pain Integumentary/Breast Denies: rash Neurological Reports: numbness in extremities; Denies: weakness in extremities Hematologic/Lymphatic Denies: easy bruising or easy bleeding PFSH PFSH Social History Little interest or pleasure in doing things: not at all Feeling down, depressed, or hopeless: not at all Exam Narrative Exam Narrative: Gen.: Awake, alert, in no distress Head: Normocephalic, atraumatic ENT: Moist mucous membranes Respiratory: No respiratory distress, lungs clear bilaterally Cardio: Regular rate and rhythm Extremities: Moves extremities equally, no swelling, redness or deficit impulse to the upper extremities. 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 Diffuse tenderness of the left shoulder, left scapula and paraspinal muscles of the cervical spine with no midline spinal tenderness of the C-spine or T-spine. Psych: Normal mood and affect Neuro: No focal neuro deficit Skin: Warm, dry, intact Constitutional Vital Signs, click to edit/add: Last Vital Signs Temp 98.2 F 06/17/24 20:21 Pulse 81 06/17/24 20:21 Resp 18 06/17/24 20:21 BP 136/82 06/17/24 20:21 Pulse Ox 97 06/17/24 20:21 O2 Del Method Room Air 06/17/24 20:21 Course Vital Signs Vital signs: Vital Signs Temperature 98.2 F 06/17/24 20:21 Pulse Rate 81 06/17/24 20:21 Respiratory Rate 18 06/17/24 20:21 Blood Pressure 136/82 06/17/24 20:21 Pulse Oximetry 97 06/17/24 20:21 Oxygen Delivery Method Room Air 06/17/24 20:21 Temperature 98.2 F 06/17/24 20:21 Pulse Rate 81 06/17/24 20:21 Respiratory Rate 18 06/17/24 20:21 Blood Pressure 136/82 06/17/24 20:21 Pulse Oximetry 97 06/17/24 20:21 Oxygen Delivery Method Room Air 06/17/24 20:21 MDM - Chest Pain MDM Narrative Medical decision making narrative: X-rays of the chest, cervical spine and left shoulder are unremarkable. Laboratory studies are unremarkable as well. Patient was treated with Toradol and Solu-Medrol. Exam is consistent with musculoskeletal pain radiating from the neck and shoulder. His symptoms have been ongoing for some time, he is well-established with [facility] and gets regular cardiology care there. He has no PE risk factors and stable vital signs in the ER with no tachycardia or hypoxia. He is reevaluated by attending physician will be discharged home with medication for musculoskeletal symptoms. Return to the ER if symptoms change or worsen SHARED APC VISIT, PHYSICIAN ATTESTATION: [id number] I performed a substantive part of the MDM during the patient?s E/M visit. I personally evaluated and examined the patient. I personally made or approved the documented management plan and acknowledge its risk of complications. Medical Records Data Attestation: I reviewed the patient's medical records. Lab Data Attestation: I reviewed the patient's lab results. Labs: Lab Results 06/17/24 Range/Units 20:50 WBC 8.4 (4.0-11.0) 10^3/uL RBC 4.60 L (4.70-6.10) 10^6/uL Hgb 14.1 (14.0-18.0) g/dL Hct 40.7 L (42.0-54.0) % MCV 88.5 (80.0-94.0) fL MCH 30.7 (25.9-34.0) pg MCHC 34.6 (29.9-35.2) g/dL RDW 11.4 (11.0-15.0) % Plt Count 268 (150-450) 10^3/uL MPV 10.5 (9.5-13.5) fL Neut % (Auto) 46.4 (43.0-75.0) % Lymph % (Auto) 42.0 (20.5-60.0) % [place] % (Auto) 5.3 (1.7-12.0) % Eos % (Auto) 4.7 (0.9-7.0) % Baso % (Auto) 1.4 (0.2-2.0) % Neut # (Auto) 3.9 (1.4-6.5) 10^3/uL Lymph # (Auto) 3.5 (1.2-3.8) 10^3/uL [place] # (Auto) 0.4 (0.3-0.8) 10^3/uL Eos # (Auto) 0.4 (0.0-0.7) 10^3/uL Baso # (Auto) 0.1 (0.0-0.1) 10^3/uL Abs Immat Gran (auto) 0.02 (0.00-0.03) 10^3/uL Imm/Tot Granulo (auto) 0.2 (0.0-0.5) % ESR 9 (<=15) mm/hr PT 10.0 (9.0-11.6) sec INR 0.94 Sodium 139 (136-145) mmol/L Potassium 4.5 (3.5-5.1) mmol/L Chloride 105 (98-107) mmol/L Carbon Dioxide 26.5 (21.0-32.0) mmol/L Anion Gap 12.0 BUN 16.0 (7.0-18.0) mg/dL Creatinine 1.08 (0.70-1.30) mg/dL Est GFR ( Amer) >60 (>=60 mL/min/1.73m^2) Est GFR (Non-Af Amer) >60 (>=60 mL/min/1.73m^2) BUN/Creatinine Ratio 14.8 Glucose 98 (74-106) mg/dL Calcium 9.2 (8.5-10.1) mg/dL Total Bilirubin 0.6 (0.2-1.0) mg/dL AST 27 (15-37) U/L ALT 38 (16-63) U/L Alkaline Phosphatase 71 (46-116) U/L Troponin I High Sens 6.5 (4.0-76.1) pg/mL C-Reactive Protein <0.50 (<=0.50) mg/dL NT-Pro-B Natriuret Pep 107.0 (<=450.0) pg/mL Total Protein 7.4 (6.4-8.2) g/dL Albumin 3.9 (3.4-5.0) g/dL Globulin 3.5 g/dL Albumin/Globulin Ratio 1.1 Imaging Data Chest x-ray: Attestation: I have reviewed the pertinent imaging results. ECG Data Attestation: I personally reviewed and interpreted this ECG as follows: (Normal sinus rhythm at a rate of 65, no acute ST elevation or ectopy. Right bundle branch block noted. EKG reviewed by attending physician) Heart Score History: Slightly/Non-Suspicious ECG: Normal Age: <45 years Risk Factors: No Risk Factors Troponin: <Normal Limit Total Heart Score Recommendations & Risks:: 0 Discharge Plan Discharge Chief Complaint: Chest Pain Clinical Impression: Chest pain, Left arm pain Patient Disposition: Home, Self-Care Time of Disposition Decision: 21:49 Condition: Good Prescriptions / Home Meds: New ketorolac 10 mg tablet 10 mg PO TID PRN (Reason: pain) Qty: 10 0RF methocarbamol 750 mg tablet 750 mg PO TID PRN (Reason: pain) Qty: 20 0RF No Action lisinopril 10 mg tablet 10 mg PO DAILY omeprazole 20 mg capsule,delayed release(DR/EC) 20 mg PO DAILY Print Language: Citizen Of [place] Instructions: Chest Pain (ED), Arm Pain (ED) Referrals: Physician,Non-Staff, MD [Primary Care Provider] - 1 week
[2024-06-17 20:59] LABS: Basophils Absolute Auto 0.1 10^3/uL (0.0-0.1); Basophils Percent Auto 1.4 % (0.2-2.0); Eosinophils Absolute Auto 0.4 10^3/uL (0.0-0.7); Eosinophils Percent Auto 4.7 % (0.9-7.0); Hematocrit 40.7 % (42.0-54.0); Hemoglobin 14.1 g/dL (14.0-18.0); Immature Granulocytes Abs Auto 0.02 10^3/uL (0.00-0.03); Immature Granulocytes Pct Auto 0.2 % (0.0-0.5); Lymphocytes Absolute Auto 3.5 10^3/uL (1.2-3.8); Mean Corpuscular HGB Conc 34.6 g/dL (29.9-35.2); Mean Corpuscular Hemoglobin 30.7 pg (25.9-34.0); Mean Corpuscular Volume 88.5 fL (80.0-94.0); Mean Platelet Volume 10.5 fL (9.5-13.5); Monocytes Absolute Auto 0.4 10^3/uL (0.3-0.8); Monocytes Percent Auto 5.3 % (1.7-12.0); Neutrophils Absolute Auto 3.9 10^3/uL (1.4-6.5); Neutrophils Percent Auto 46.4 % (43.0-75.0); Platelet Count 268 10^3/uL (150-450); Red Cell Distribution Width 11.4 % (11.0-15.0); White Blood Count 8.4 10^3/uL (4.0-11.0)
[2024-06-17] MEDS: METHYLPREDNISOLONE SOD SUCC PF 125 MG/2 ML VIAL IVP (21:03)
[2024-06-17] MEDS: KETOROLAC TROMETHAMINE 30 MG/ML VIAL IVP (21:03)
[2024-06-17 21:09] LABS: Erythrocyte Sedimentation Rate 9 mm/hr (<=15)
[2024-06-17 21:21] LABS: INR 0.94
[2024-06-17 21:25] LABS: Alanine Aminotransferase 38 U/L (16-63); Albumin Globulin Ratio 1.1; Albumin Level 3.9 g/dL (3.4-5.0); Alkaline Phosphatase 71 U/L (46-116); Aspartate Amino Transferase 27 U/L (15-37); BUN Creatinine Ratio 14.8; Bilirubin Total 0.6 mg/dL (0.2-1.0); Calcium 9.2 mg/dL (8.5-10.1); Carbon Dioxide 26.5 mmol/L (21.0-32.0); Chloride 105 mmol/L (98-107); Estimated GFR (African America >60 (>=60 mL/min/1.73m^2); Estimated GFR (Non-African Ame >60 (>=60 mL/min/1.73m^2); Globulin 3.5 g/dL; Glucose 98 mg/dL (74-106); Potassium 4.5 mmol/L (3.5-5.1); Sodium 139 mmol/L (136-145); Total Protein 7.4 g/dL (6.4-8.2)
[2024-06-17 21:33] LABS: C Reactive Protein <0.50 mg/dL (<=0.50); Troponin I High Sensitivity 6.5 pg/mL (4.0-76.1)
[2024-06-17 21:59] VITALS: BP 122/64; PULSE 68; O2SAT 95
== END 2024-06-17 21:59 | disposition home or self-care (01) ==
PROVIDERS: Physician Assistant; Emergency Provider Emergency Medicine
DX: R07.9 Chest pain, unspecified (principal); M79.602 Pain in left arm
CPT/HCPCS: 36415; 71045; 72040; 73030; 80053; 83880; 84484; 85025; 85610; 85652; 86140; 93005; 96374; 96375; 99285; J1885; J2919

== ENCOUNTER 2024-09-13 15:55 | Emergency (ER) | payer OTHER, SELFPAY ==
[2024-09-13 15:59] VITALS: BP 160/110; PULSE 105; TEMP 37; O2SAT 99; BMI 30.8
--- OUTSIDE RECORDS SUMMARY | 2024-09-13 16:06 | XMS_ITS | CCD ---
Author Organization [facility] CliniSyhi Care Team Providers Care Cyber Legal Advisor Name Role Phone KaylaMirtha travis Unavailable Sohail Pickett.Carlos Primary Care Provider Esme Hdz MD Unavailable HOUSE, DR FLOWERS Primary Care Unavailable DORIS, LISA Admitting Unavailable DORIS, LISA Attending Unavailable DORIS, LISA Consulting Unavailable BRENTON SALAS Consulting Unavailable HOUSE, DR FLOWERS Admitting Unavailable HOUSE, DR FLOWERS Attending Unavailable HOUSE, DR FLOWERS Primary Care Unavailable HOUSE, DR FLOWERS Consulting Unavailable HOUSE, DR FLOWERS Admitting Unavailable HOUSE, DR FLOWERS Attending Unavailable HOUSE, DR FLOWERS Primary Care Unavailable HOUSE, DR FLOWERS Consulting Unavailable HOUSE, DR FLOWERS Primary Care Unavailable LARON LUIS Consulting Unavailable LARON LUIS Admitting Unavailable LARON LUIS Attending Unavailable BILL GONZALEZ Consulting Unavailable House Sr., Carlos VALENZUELA Primary Care Provider Esme Hdz MD Unavailable NO FAMILY, PHYSICIAN Primary Care Provider Unava ilable Rusty, PRESERVATIVE FILLER MACHINE OPERATOR Teresa Jorgensen Attending Provider [phone] NO FAMILY, PHYSICIAN Primary Care Provider Unava ilable Allen Cheung DO Emergency Provider Allen Cheung Admitting Unavailable Allen Cheung Attending Unavailable NO FAMILY, PHYSICIAN Primary Care Unavailable Teresa Ojeda Admitting Unavailable RustyTeresa Attending Unavailable NO FAMILY, PHYSICIAN Primary Care Unavailable No Pcp, No Pcp Primary Care Provider Unavailabl e CARLOS ARCEO SR Primary Care Unavailable ESME HDZ Referring Unavailable CARLOS ARCEO SR Primary Care Unavailable ESME HDZ Referring Unavailable ESME HDZ Attending Unavailable ESME HDZ Referring Unavailable CARLOS ARCEO SR Primary Care Unavailable ALINE HDZT Referring Unavailable HOUSE SR, CARLOS P Primary Care Unavailable ESME HDZ Referring Unavailable HOUSE SR, CARLOS P Primary Care Unavailable YUMIKO, ESME Referring Unavailable HOUSE SR, CARLOS P Primary Care Unavailable HOUSE SR, CARLOS P Primary Care Unavailable YUMIKO, ESME Referring Unavailable YUMIKO, ESME Attending Unavailable HOUSE SR, CARLOS P Primary Care Unavailable HOUSE SR, CARLOS P Primary Care Unavailable FUCELMER, ESME Referring Unavailable House Sr., DOCarlos Primary Care Provider Allergies Allergy Classification Reported Allergen(s) Allergy Type Date of Onset Reaction(s) Facility (4 sources) Penicillin G Drug Allergy 12-29-19 Unknown, Unknown Reaction [facility] (14 sources) diphenhydrAMINE; Translations: [DIPHENHYDRAMINE] Drug Allergy 01-12-20 Rash, Itching [facility] (12 sources) Penicillins; Translations: [PENICILLINS] Propensity to adverse reactions 09-11-19 05 Hives [facility] (1 source) Penicillins Drug allergy (disorder) 12-17-19 13 [facility] (1 source) Sulfonamides (Antibiotic) Drug allergy (disorder) [facility] (1 source) diphenhydrAMINE Drug Allergy 12-29-19 [facility] (1 source) Penicillin Drug Allergy 12-29-19 [facility] (1 source) diphenhydrAMINE Drug Allergy 06-16-20 18 [facility] Medications Current Medications Medication Drug Class(es) Dates Sig (Normalized) Sig (Original) aspirin 81 mg chewable tablet (1 source) Platelet Aggregation Inhibitor, Nonsteroidal Anti-inflammatory Drug aspirin 81 mg chewable tablet Chew 81 mg and swallow daily. Active dicyclomine hydrochloride 20 mg oral tablet (1 source) Anticholinergic Start: 08-01-2024 take 1 tablet by mouth three times daily Dicyclomine 20 mg tablet Active 20 MG PO Three times daily August 01, 2024 12:00am famotidine 20 mg oral tablet (9 sources) Histamine-2 Receptor Antagonist Start: 06-14-2022 take 1 tablet by mouth every twelve hours as needed famotidine (PEPCID) 20 mg tablet Take 20 mg by mouth twice daily as needed. 06/14/2022 Active Comment on above: Take 20 mg by mouth twice daily as needed. lisinopril 10 mg oral tablet (15 sources) Angiotensin Converting Enzyme Inhibitor Start: 12-29-2023 Lisinopril Active MG PO December 29, 2023 12:00am Start: 10-06-2020 End: 11-01-2023 Lisinopril 10 mg tablet Acti ve MG PO December 28, 2023 11:00pm Lisinopril Activ e Comment on above: Take 10 mg by mouth once daily. naproxen sodium 550 mg oral tablet (1 source) Nonsteroidal Anti-inflammatory Drug Start: 04-12-20 21 take 1 tablet by mouth every twelve hours at mealtime as needed Naproxen Sodium 550 MG 1 tablet with food or milk as needed Orally every 12 hrs for 7 days Mar, Active pantoprazole 40 mg delayed release oral tablet (1 source) Proton Pump Inhibitor Start: 08-01-19 25 take 1 tablet by mouth once daily Pantoprazole (Protonix) 40 mg tablet,delayed release (DR/EC) Active 40 MG PO Daily 14 August 01, 2024 12:00am sucralfate 1000 mg oral tablet (1 source) Aluminum Complex Start: 08-01-19 take 1 tablet by mouth every six hours Sucralfate (Carafate) 1 gram tablet Active 1 GM PO Q6H 56 August 01, 2024 12:00am Completed/Discontinued Medications Medication Drug Class(es) Dates Sig [...] POSIFLUSH) traMADol hydrochloride 50 mg oral tablet (10 sources) Opioid Agonist Start: 09-12-2016 End: 11-01-2023 take 1 tablet by mouth every twelve hours as needed traMADol (ULTRAM) 50 mg tablet Take 1 tablet by mouth every 12 hours as needed. 30 tablet 0 09/12/2016 11/01/2023 Discontinued (Other) take 1 tablet by zechariah th every six hours as needed for pain traMADol (ULTRAM) 50 mg tablet Take 50 m g by mouth every 6 (six) hours as needed for pain. Active traMADol HCl Act mik Comment on above: Take 1 tablet by zechariah th every 12 hours as needed. Problems Active Problems Problem Classification Problem Date Documented Date Episodic/Chronic Cardiac and circulatory congenital anomalies (20 sources) Myxoid transformation of tricuspid valve; Translations: [Other specified congenital malformations of heart] Onset: 04-15-2005 Resolved: 08-01-2016 08-02-2016 Chronic Essential hypertension (16 sources) Hypertensive disorder; Translations: [Essential (primary) hypertension] 10-15-2020 Chronic Other injuries and conditions due to external causes (3 sources) Injury of forearm; Translations: [Unspecified injury of right forearm, initial encounter] 12-29-2023 Episodic Other nutritional; endocrine; and metabolic disorders (4 sources) Obese class I; Translations: [Obesity, unspecified] Onset: 11-05-2023 11-05-2023 Chronic Jeanie-; endo-; and myocarditis; cardiomyopathy (except that caused by tuberculosis or sexually transmitted disease) (2 sources) Cardiomyopathy; Translations: [Cardiomyopathy, unspecified] Chronic Residual codes; unclassified (14 sources) History of tricuspid valve repair; Translations: [Other specified postprocedural states] Onset: 08-19-2016 Episodic Substance-related disorders (1 source) Nicotine dependence, cigarettes, uncomplicated; Translations: [NICOTINE DEPEND CIGARETTES UNCOMP] Onset: 06-28-2022 Chronic Superficial injury; contusion (4 sources) Contusion of right hand; Translations: [Contusion of right hand, initial encounter] 12-29-2023 Episodic Unclassified (10 sources) SUMMARY Onset: 07-29-2016 08-02-2016 Unclassified (3 sources) CONTACT W/AND (SUSP) EXPOS COVID-19; Translations: [CONTACT W/AND (SUSP) EXPOS COVID-19] Onset: 08-23-2021 Viral infection (1 source) COVID-19; Translations: [COVID-19] Onset: 01-06-2022 Past or Other Problems Problem Classification Problem Date Documented Date Episodic/Chronic Administrative/social admission (10 sources) Discharge status; Translations: [Encounter for administrative examinations, unspecified] Onset: 08-01-2016 08-02-2016 Episodic Anxiety disorders (3 sources) Anxiety; Translations: [Anxiety disorder, unspecified] Onset: 07-30-2016 Resolved: 08-01-2016 08-01-2016 Chronic Cardiac dysrhythmias (3 sources) Palpitations; Translations: [Palpitations] Onset: 05-11-2006 Resolved: 10-16-2008 10-16-2008 Episodic Fracture of upper limb (1 source) Displaced fracture of middle phalanx of unspecified finger, initial encounter for closed fracture; Translations: [Fracture of middle phalanx of finger of right hand S62.629A] Onset: 04-12-2021 Resolved: 04-12-2021 Episodic Nonspecific chest pain (17 sources) Chest pain; Translations: [Other chest pain] Onset: 05-07-2020 05-07-2020 Episodic Other aftercare (1 source) Other termite helper (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 therapy; Translations: [OTH [facility] CURRENT DRUG THERAPY] Onset: 12-20-2021 Episodic Other injuries and conditions due to external causes (1 source) Unspecified injury of right wrist, hand and finger(s), initial encounter; Translations: [Injury of right hand, initial encounter S69.91XA] Onset: 04-12-2021 Resolved: 04-12-2021 Episodic Other injuries and conditions due to external causes (1 source) Unspecified injury of right forearm, initial encounter; Translations: [Unspecified injury of right forearm, initial encounter] Onset: 12-29-2023 Episodic Other nervous system disorders (10 sources) Acute postoperative pain; Translations: [Other acute postprocedural pain] Onset: 07-30-2016 08-02-2016 Episodic Residual codes; unclassified (1 source) Other specified postprocedural states; Translations: [OTH SPECIFIED POSTPROCEDURAL STATES] Onset: 12-20-2021 Episodic Unclassified (1 source) CONTACT W/AND (SUSP) EXPOS COVID-19; Translations: [CONTACT W/AND (SUSP) EXPOS COVID-19] Onset: 01-04-2022 Results Test Name Value Interpretation Reference Range Facility CBC panel Auto (Bld)on 09-09 Erythrocyte distribution width (RBC) [Ratio] 11.7 % Normal 11.5-15.0 [facility] Comment on above: Order Comment: Speci men Type: BLOOD SPECIMEN Ordering Facility: [facility] Address: [address] [place] [address] Performed By: #### 5 8410-2 #### [facility] CLIA [id number] [address] [place] [address] [place] Hematocrit (Bld) [Volume fraction] 43.7 % Normal 39.0-51.0 [facility] Comment on above: Order Comment: Speci men Type: BLOOD SPECIMEN Ordering Facility: [facility] Address: [address] [place] [address] Performed By: #### 5 8410-2 #### [facility] CLIA [id number] [address] [place] [address] [place] Hemoglobin (Bld) [Mass/Vol] 14.9 g/dL Normal 13.0-17.0 [facility] Comment on above: Order Comment: Speci men Type: BLOOD SPECIMEN Ordering Facility: [facility] Address: [address] [place] [address] Performed By: #### 5 8410-2 #### [facility] CLIA [id number] [address] [place] [address] [place] MCH (RBC) [Entitic mass] 30.3 pg Normal 26.0-34.0 [facility] Comment on above: Order Comment: Speci men Type: BLOOD SPECIMEN Ordering Facility: [facility] Address: [address] [place] [address] Performed By: #### 5 8410-2 #### [facility] CLIA [id number] [address] [place] [address] [place] MCHC (RBC) [Mass/Vol] 34.1 g/dL Normal 30.5-36.0 [facility] Comment on above: Order Comment: Speci men Type: BLOOD SPECIMEN Ordering Facility: [facility] Address: [address] [place] [address] Performed By: #### 5 8410-2 #### [facility] CLIA [id number] [address] [place] [address] [place] MCV (RBC) [Entitic vol] 89.0 fL Normal 80.0-100.0 [facility] Comment on above: Order Comment: Speci men Type: BLOOD SPECIMEN Ordering Facility: [facility] Address: [address] [place] [address] Performed By: #### 5 8410-2 #### [facility] CLIA [id number] [address] [place] [address] [place] Nucleated RBC (Bld) [#/Vol] 10*3/uL Normal <0.01 [facility] Comment on above: Order Comment: Speci men Type: BLOOD SPECIMEN Ordering Facility: [facility] Address: [address] [place] [address] Performed By: #### 5 8410-2 #### [facility] CLIA [id number] [address] [place] [address] [place] Platelet mean volume (Bld) [Entitic vol] 10.2 fL Normal 9.0-12.7 [facility] Comment on above: Order Comment: Speci men Type: BLOOD SPECIMEN Ordering Facility: [facility] Address: [address] [place] [address] Performed By: #### 5 8410-2 #### [facility] CLIA [id number] [address] [place] [address] [place] Platelets (Bld) [#/Vol] 282 10*3/uL Normal 150-400 [facility] Comment on above: Order Comment: Speci men Type: BLOOD SPECIMEN Ordering Facility: [facility] Address: [address] [place] [address] Performed By: #### 5 8410-2 #### [facility] CLIA [id number] [address] [place] [address] [place] RBC (Bld) [#/Vol] 4.91 10*6/uL Normal 4.20-6.00 [facility] Comment on above: Order Comment: Speci men Type: BLOOD SPECIMEN Ordering Facility: [facility] Address: [address] [place] [address] Performed By: #### 5 8410-2 #### [facility] CLIA [id number] [address] [place] [address] [place] WBC (Bld) [#/Vol] 8.31 10*3/uL Normal 3.70-11.00 [facility] Comment on above: Order Comment: Speci men Type: BLOOD SPECIMEN Ordering Facility: [facility] Address: [address] [place] [address] Performed By: #### 5 8410-2 #### [facility] CLIA [id number] [address] [place] [address] [place] Comprehensive metabolic 2000 panelon 09-09-2024 Albumin [Mass/Vol] 4.8 g/dL Normal 3.9-4.9 [facility] Comment on above: Order Comment: Speci men Type: BLOOD SPECIMEN Ordering Facility: [facility] Address: [address] [place] [address] Performed By: #### 2 4323-8, 89068-6 #### [facility] CLIA [id number] [address] [place] [address] [place] ALP [Catalytic activity/Vol] 86 U/L Normal 38-113 [facility] Comment on above: Order Comment: Speci men Type: BLOOD SPECIMEN Ordering Facility: [facility] Address: [address] [place] [address] Performed By: #### 2 4323-8, 00247-1 #### [facility] CLIA [id number] [address] [place], [place] [address] [place] ALT [Catalytic activity/Vol] 15 U/L Normal 10-54 [facility] Comment on above: Order Comment: Speci men Type: BLOOD SPECIMEN Ordering Facility: [facility] Address: [address] [place] [address] Performed By: #### 2 4323-8, 69989-6 #### [facility] CLIA [id number] [address] [place] [address] [place] Anion gap [Moles/Vol] 10 mmol/L Normal 8-15 [facility] Comment on above: Order Comment: Speci men Type: BLOOD SPECIMEN Ordering Facility: [facility] Address: [address] [place] [address] Performed By: #### 2 4323-8, 66806-3 #### [facility] CLIA [id number] [address] [place] [address] [place] AST [Catalytic activity/Vol] 11 U/L Low 14-40 [facility] Comment on above: Order Comment: Speci men Type: BLOOD SPECIMEN Ordering Facility: [facility] Address: [address] [place] [address] Performed By: #### 2 4323-8, 61556-8 #### [facility] CLIA [id number] [address] [place] [address] [place] Bilirubin [Mass/Vol] 0.4 mg/dL Normal 0.2-1.3 [facility] Comment on above: Order Comment: Speci men Type: BLOOD SPECIMEN Ordering Facility: [facility] Address: [address] [place] [address] Performed By: #### 2 4323-8, 22059-5 #### [facility] CLIA [id number] [address] [id number] [address] [place] Calcium [Mass/Vol] 9.6 mg/dL Normal 8.5-10.2 [facility] Comment on above: Order Comment: Speci men Type: BLOOD SPECIMEN Ordering Facility: [facility] Address: [address] [place] [address] Performed By: #### 2 4323-8, 14304-5 #### [facility] CLIA [id number] [address] [place], [place] [address] [place] Chloride [Moles/Vol] 105 mmol/L Normal 98-107 [facility] Comment on above: Order Comment: Speci men Type: BLOOD SPECIMEN Ordering Facility: [facility] Address: [address] [place] [address] Performed By: #### 2 4323-8, 55159-8 #### [facility] CLIA [id number] [address] [place] [address] [place] CO2 [Moles/Vol] 25 mmol/L Normal 22-30 [facility] Comment on above: Order Comment: Speci men Type: BLOOD SPECIMEN Ordering Facility: [facility] Address: [address] [place] [address] Performed By: #### 2 4323-8, 81201-4 #### [facility] CLIA [id number] [address] [place], [place] [address] [place] Creatinine [Mass/Vol] 0.95 mg/dL Normal 0.73-1.22 [facility] Comment on above: Order Comment: Speci men Type: BLOOD SPECIMEN Ordering Facility: [facility] Address: [address] [place], [place] [address] Performed By: #### 2 4323-8, 83691-9 #### [facility] CLIA [id number] [address] [place], [place] [address] [place] Creatinine and Glomerular filtration rate.predicted panel (S/P/Bld) 108 mL/min/1.73m??? Normal >=60 [facility] Comment on above: Order Comment: Ana ayoub Type: BLOOD SPECIMEN Ordering Facility: [facility] Address: [address] [place] [address] Result Comment: Sonja mated Glomerular Filtration Rate [...] accurately reflect actual GFR. Performed By: #### 2 4323-8, 63328-2 #### [facility] CLIA [id number] [address] [place] [address] [place] Glucose [Mass/Vol] 93 mg/dL Normal 74-99 [facility] Comment on above: Order Comment: Ana ayoub Type: BLOOD SPECIMEN Ordering Facility: [facility] Address: [address] [place] [address] Result Comment: The [employer] Diabetes Association (ADA) provides guidance for cutoff [...] Standards of Medical Care in Diabetes 2016, [employer]. Diabetes Care. 2016.39(Suppl 1). Performed By: #### 2 4323-8, 10082-9 #### [facility] CLIA [id number] [address] [place] [address] [place] Potassium [Moles/Vol] 4.0 mmol/L Normal 3.7-5.1 [facility] Comment on above: Order Comment: Ana ayoub Type: BLOOD SPECIMEN Ordering Facility: [facility] Address: [address] [place], [place] [address] Performed By: #### 2 4323-8, 26120-9 #### [facility] CLIA [id number] [address] [place] [address] [place] Protein [Mass/Vol] 7.4 g/dL Normal 6.3-8.0 [facility] Comment on above: Order Comment: Speci men Type: BLOOD SPECIMEN Ordering Facility: [facility] Address: [address] [place] [address] Performed By: #### 2 4323-8, 89423-4 #### [facility] CLIA [id number] [address] [place] [address] [place] Sodium [Moles/Vol] 140 mmol/L Normal 136-144 [facility] Comment on above: Order Comment: Speci men Type: BLOOD SPECIMEN Ordering Facility: [facility] Address: [address] [place] [address] Performed By: #### 2 4323-8, 33683-3 #### [facility] CLIA [id number] [address] [place] [address] [place] Urea nitrogen [Mass/Vol] 11 mg/dL Normal 9-24 [facility] Comment on above: Order Comment: Speci men Type: BLOOD SPECIMEN Ordering Facility: [facility] Address: [address] [place] [address] Performed By: #### 2 4323-8, 85190-0 #### [facility] CLIA [id number] [address] [place] [address] [place] ECHO SPECIALIST COMPLEX ADUL T CONGENITALon 09-09-2024 ECHO SPECIALIST COMPLEX ADULT CONGENITAL Echocardiography Report: [facility] MARIAH-2 Date of service: 09/09/2024 1:34:55 PM ASSISTANT Ordering physician: ESME HDZ Indication: Ebstein anomaly s/p TVr Technologist: Aditi Lopez Interpreting physician: Esme Hdz MD PATIENT: Name: MR. ALLIE FUNES : 1990 Age: 34 years Gender: M History of hypertension, congenital heart disease and valvular heart disease. Previous cardiovascular interventions: Tricuspid valve repair (07/2016) Primary rhythm: sinus. Height: 188.00 cm BSA: 2.37 m Weight: 107.68 kg BMI: 30.5 kg/m Heart rate 79 bpm Color Doppler was utilized to interrogate the cardiac valves assessed and spectral Doppler was utilized to determine the flow velocities and pressure gradients reported in this exam. MEASUREMENTS: Value Indexed Normal Max aortic dimension 3.4 cm Ao < 3.8 Left atrial volume 35 ml (Stein's) 15 ml/m Michelle <= 34 LV ID (diastole) 5.9 cm (2D) 2.49 cm/m LV ID (systole) 4.1 cm (2D) 1.73 cm/m IVS, leaflet tips 0.8 cm (2D) Posterior wall thickness 1.0 cm (2D) Left ventricular mass 210 g (2D) 88 g/m LV stroke volume 67 ml (2D biplane) LV end diastolic volume 126 ml (2D biplane) 53.2 ml/m 34<=EDVi<75 LV end systolic volume 59 ml (2D biplane) 25.0 ml/m Ejection Fraction 53 % (2D biplane) EF > 52 FINDINGS: LEFT VENTRICLE The left ventricle is normal in size. Left ventricular systolic function is normal. Normal left ventricular diastolic function. Mitral annular lateral E/e': 3.2. Mitral annular septal E/e': 8.9. Wall Motion: All scored segments are normal. RIGHT VENTRICLE The right ventricle is mildly dilated. Right ventricular systolic function is low normal. RV systolic tissue Doppler velocity is 8.3 cm/s. Tricuspid annular displacement is 1.3 cm. Estimated right ventricular systolic pressure is 26 mmHg consistent with normal pulmonary artery pressures. Estimated right atrial pressure is 3 mmHg based on IVC assessment. LEFT ATRIUM The left atrial cavity is normal in size. Pulmonary Veins: The pulmonary venous pattern showed normal systolic flow. RIGHT ATRIUM The right atrial cavity is normal in size. Inferior Vena Cava: The inferior vena cava appears normal measuring 1.9 cm. The vessel decreases greater than 50 percent with inspiration. MITRAL VALVE There is trace mitral valve regurgitation. There is no thickening. The pressure half time is 67 msec. The peak mitral E/A ratio is 0.79. The average mitral E/e' ratio is 6.0. The mitral flow deceleration time is 230 msec. TRICUSPID VALVE Post tricuspid valve repair. Lizett Classic size #24. There is mild (1+ - 2+) tricuspid valve regurgitation. LAURA(PA) is 37 mm . The mean valve gradient is 3 mmHg. AORTIC VALVE There is no aortic valve regurgitation. Tricuspid aortic valve. There is no thickening. The peak gradient is 4 mmHg (peak velocity = 105.0 cm/s). PULMONIC VALVE There is trace pulmonic valve regurgitation. There is no thickening. AORTA The visualized aorta is normal in size. Measurements - Sinus: 3.4 cm. Mid ascending aorta 3.3 cm. PULMONARY ARTERIES The pulmonary arteries are normal. INTERATRIAL SEPTUM The interatrial septum is mobile. There is no evidence of intracardiac shunting as detected by Doppler. INTERVENTRICULAR SEPTUM There is abnormal motion of the interventricular septum secondary to abnormal conduction and prior cardiac surgery. There is no flow through the interventricular septum as detected by Doppler. PERICARDIUM There is no pericardial effusion. 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 - The left ventricle is normal in size. Left ventricular systolic function is normal. EF = 53 5% (2D biplane) Normal left ventricular diastolic function. - The right ventricle is mildly dilated. Right ventricular systolic function is low normal. FAC: 35.5% - Post tricuspid valve repair. Lizett Classic (size #24). There is mild (1+ - 2+) tricuspid valve regurgitation. The peak gradient is 7 mmHg and the mean gradient is 3 mmHg. Prior TV peak and mean gradients of 8/4 mmHg at a HR of 76bpm. - Estimated right ventricular systolic pressure is 26 mmHg consistent with normal pulmonary artery pressures. Estimated right atrial pressure is 3 mmHg based on IVC assessment. - Exam was compared with the prior CC echocardiographic exam performed on 11/01/2023. Similar findings. Final CC [employer] [facility] Image : [id number] See Link below for Image Normal [facility] Lipid 1996 panelon 5 Cholesterol [Mass/Vol] 142 mg/dL Normal <200 [facility] Comment on above: Order Comment: Speci men Type: BLOOD SPECIMEN Ordering Facility: [facility] Address: [address] [place] [address] Result Comment: <200 mg/dL, Desirable 200-239 mg/dL, Borderline high >239 mg/dL, High Performed By: #### 2 4323-8, 42161-6 #### [facility] CLIA [id number] [address] [place] [address] [place] Cholesterol in HDL [Mass/Vol] 33 mg/dL Low >39 [facility] Comment on above: Order Comment: Speci men Type: BLOOD SPECIMEN Ordering Facility: [facility] Address: [address] [place] [address] Result Comment: 40-5 9 mg/dL, Acceptable >59 mg/dL, High: Negative risk factor for coronary heart disease <40 mg/dL, Low: Positive risk factor for coronary heart disease Performed By: #### 2 4323-8, 78038-4 #### [facility] CLIA [id number] [address] [place] [address] [place] Cholesterol in LDL [Mass/Vol] 97 mg/dL Normal <100 [facility] Comment on above: Order Comment: Speci men Type: BLOOD SPECIMEN Ordering Facility: [facility] Address: [address] [place] [address] Result Comment: <100 mg/dL, Optimal 100-129 mg/dL, Near optimal/above optimal 130-159 mg/dL, Borderline high 160-189 mg/dL, High >189 mg/dL, Very high Secondary prevention optimal LDL Cholesterol levels are recommended to be < 70 mg/dL Performed By: #### 2 4323-8, 23100-2 #### [facility] CLIA [id number] [address] [place] [address] [place] Cholesterol in LDL/Cholesterol in HDL [Mass ratio] 2.94 {ratio} High <2.54 [facility] Comment on above: Order Comment: Ana ayoub Type: BLOOD SPECIMEN Ordering Facility: [facility] Address: [address] [place] [address] Result Comment: Aubree dallas: 1. National Cholesterol Education Program ATP III Guideline At-A-Glance Quick Desk Reference: National Heart, Lung, and Blood [place]. National Institutes of Health. 2001: NIH Publication No. 01-3305. 2. An International Atherosclerosis Society position paper: global recommendations for the management of dyslipidemia: executive summary, Atherosclerosis. 2014: 232(2):410-413. Performed By: #### 2 4323-8, 88842-3 #### [facility] CLIA [id number] [address] [place] [address] [place] Cholesterol in VLDL [Mass/Vol] 12 mg/dL Normal <30 [facility] Comment on above: Order Comment: Ana ayoub Type: BLOOD SPECIMEN Ordering Facility: [facility] Address: [address] [place] [address] Performed By: #### 2 4323-8, 83069-3 #### [facility] CLIA [id number] [address] [place] [address] [place] Cholesterol non HDL [Mass/Vol] 109 mg/dL Normal <130 [facility] Comment on above: Order Comment: Melissai men Type: BLOOD SPECIMEN Ordering Facility: [facility] Address: [address] [place] [address] Result Comment: <130 mg/dL, Optimal 130-159 mg/dL, Near optimal/above optimal 160-189 mg/dL, Borderline high 190-219 mg/dL, High >219 mg/dL, Very high Secondary prevention optimal non HDL Cholesterol levels are recommended to be <100 mg/dL Performed By: #### 2 4323-8, 76974-3 #### [facility] CLIA [id number] [address] [place] [address] [place] Cholesterol.total/Chol esterol in HDL [Mass ratio] 4.30 {ratio} Normal <5.10 [facility] Comment on above: Order Comment: Speci men Type: BLOOD SPECIMEN Ordering Facility: [facility] Address: [address] [place] [address] Performed By: #### 2 4323-8, 49859-3 #### [facility] CLIA [id number] [address] [place] [address] [place] FASTING TIME 12 hrs Normal [facility] Comment on above: Order Comment: Speci men Type: BLOOD SPECIMEN Ordering Facility: [facility] Address: [address] [place] [address] Performed By: #### 2 4323-8, 86610-9 #### [facility] CLIA [id number] [address] [place] [address] [place] Triglyceride [Mass/Vol] 59 mg/dL Normal <150 [facility] Comment on above: Order Comment: Speci men Type: BLOOD SPECIMEN Ordering Facility: [facility] Address: [address] [place] [address] Result Comment: <150 mg/dL, Normal 150-199 mg/dL, Borderline high 200-499 mg/dL, High >499 mg/dL, Very high Performed By: #### 2 4323-8, 68279-7 #### [facility] CLIA [id number] [address] [place] [address] [place] Alanine aminotransferase [En zymatic activity/volume] in Serum or PlasmaOrdered By: Allen Cheung on 08-01-2024 ALT [Catalytic activity/Vol] Alanine aminotransferase [Enzymatic activity/volume] in Serum or Plasma [facility] Albumin [Mass/volume] in Ser um or Plasma by Bromocresol green (BCG) dye binding methoOrdered By: Allen Cheung on 08-01-2024 Albumin BCG dye [Mass/Vol] Albumin [Mass/volume] in Serum or Plasma by Bromocresol green (BCG) dye binding metho 3.5-5.7 [facility] Alkaline phosphatase [Enzyma tic activity/volume] in Serum or PlasmaOrdered By: Allen Cheung on 08-01-2024 ALP [Catalytic activity/Vol] Alkaline phosphatase [Enzymatic activity/volume] in Serum or Plasma 34-104 [facility] Aspartate aminotransferase [ Enzymatic activity/volume] in Serum or PlasmaOrdered By: Allen Chenug on 08-01-2024 AST [Catalytic activity/Vol] Aspartate aminotransferase [Enzymatic activity/volume] in Serum or Plasma 13-39 [facility] B-Type Natriuretic Peptideon 08-01-2024 Natriuretic peptide B (Bld) [Mass/Vol] 23.0 pg/mL Normal 5-100 [facility] Comment on above: Result Comment: PERF ORMED BY: [place] [address] PATHOLOGIST HEALTH CENTER ASSISTANT FAREED DAVALOS M.D. Performed By: #### C K, HS TROP, PTT, BNP, PT, BMP, HEPATIC, CBC #### [facility] [address] [place] [address] Basic Metabolic Panelon Anion gap [Moles/Vol] 14.3 mmol/L Normal 6.0-15.0 [facility] Comment on above: Performed By: #### C K, HS TROP, PTT, BNP, PT, BMP, HEPATIC, CBC #### [facility] [address] [place] [address] Calcium [Mass/Vol] 9.9 mg/dL Normal 8.6-10.3 [facility] Comment on above: Result Comment: PERF ORMED BY: [facility] [address] [place] [address] PATHOLOGIST HEALTH CENTER ASSISTANT FAREED DAVALOS M.D. Performed By: #### C K, HS TROP, PTT, BNP, PT, BMP, HEPATIC, CBC #### [facility] [address] [place] [address] [place] Chloride [Moles/Vol] 104 mmol/L Normal 98-107 [facility] Comment on above: Performed By: #### C K, HS TROP, PTT, BNP, PT, BMP, HEPATIC, CBC #### [facility] [address] CO2 [Moles/Vol] 22.0 mmol/L Normal 21.0-31.0 [facility] Comment on above: Performed By: #### C K, HS TROP, PTT, BNP, PT, BMP, HEPATIC, CBC #### [address] Creatinine [Mass/Vol] 1.01 mg/dL Normal 0.70-1.30 [facility] Comment on above: Performed By: #### C K, HS TROP, PTT, BNP, PT, BMP, HEPATIC, CBC #### [place] [address] [place] GFR/1.73 sq M.predicted MDRD (S/P/Bld) [Vol rate/Area] mL/min/{1.73_m2} Normal [facility] Comment on above: Performed By: #### C K, HS TROP, PTT, BNP, PT, BMP, HEPATIC, CBC #### [address] Glucose [Mass/Vol] 99 mg/dL Normal 70-100 [facility] Comment on above: Result Comment: [place] Glucose Reference Range is dependent on time and content of last meal. Glucose of more than 200 mg/dL in a nonstressed, ambulatory subject supports the diagnosis of Diabetes Mellitus. ADA recommended reference range Performed By: #### C K, HS TROP, PTT, BNP, PT, BMP, HEPATIC, CBC #### [address] Potassium [Moles/Vol] 3.3 mmol/L Low 3.5-5.1 [facility] Comment on above: Performed By: #### C K, HS TROP, PTT, BNP, PT, BMP, HEPATIC, CBC #### [facility] [address] Sodium [Moles/Vol] 137 mmol/L Normal 136-145 [facility] Comment on above: Performed By: #### C K, HS TROP, PTT, BNP, PT, BMP, HEPATIC, CBC #### [facility] [address] Urea nitrogen [Mass/Vol] 15 mg/dL Normal 7-25 [facility] Comment on above: Performed By: #### C K, HS TROP, PTT, BNP, PT, BMP, HEPATIC, CBC #### [facility] [address] Basophils Auto (Bld) [#/Vol] Ordered By: Allen Cheung on 08-01-2024 Basophils (Bld) [#/Vol] Automated basophil count 0.0-0.2 [facility] Basophils/100 WBC Auto (Bld) Ordered By: Allen Cheung on 08-01-2024 Basophils/100 WBC (Bld) Automated basophil % . [facility] Bilirubin.direct [Mass/volum e] in Serum or PlasmaOrdered By: Allen Cheung on 08-01-2024 Bilirubin.direct [Mass/Vol] Bilirubin.direct [Mass/volume] in Serum or Plasma High 0.03-0.18 [facility] Bilirubin.total [Mass/volume ] in Serum or PlasmaOrdered By: Allen Cheung on 08-01-2024 Bilirubin [Mass/Vol] Bilirubin.total [Mass/volume] in Serum or Plasma High 0.3-1.0 [facility] Comment on above: Samples from patient s who have taken Naproxen have shown spurious elevation in Total Bilirubin levels. A metabolite of Naproxen, O-desmethylnaproxen, has been shown to interfere with the Jendrassik-Grof method for measuring Total Bilirubin. BioFire Not Detectedon 08-01 BioFire Not Detected Not detected Normal Not Detecte [facility] Comment on above: Result Comment: This is a duplicate RP2.1 COVID (PCR) result to be used for statistical tracking purpose only. PERFORMED BY: [place] [address] PATHOLOGIST HEALTH CENTER ASSISTANT FAREED DAVALOS M.D. Performed By: #### B IOFIRECOVNOTDE, RESP PANEL UPP. ####[facility] [id number] [place] [id number] [facility] COVID-19 Detected/Not Detect edOrdered By: Allen Cheung on 08-01-2024 SARS-CoV-2 (COVID-19) RNA HERBERTH+non-probe Ql (Nph) Not detected Not Detecte [facility] Comment on above: This is a duplicate RP2.1 COVID (PCR) result to be used for statistical tracking purpose only. CT angio chest PE protocolon 08-01-2024 CT angio chest PE protocol [facility] [place] [address] [place] [address] CT Scan Report Signed Patient: Allie Funes MR#: [id number] : 1990 Acct:[id number] Age/Sex: 34 / M ADM Date: 08/01/24 Loc: ER Room: Type: [facility] ER Attending Dr: Copies to: Allen Cheung DO Ordering Provider: Allen Cheung DO Date of Service: 08/01/24 CT/CT angio chest PE protocol: Chest pain SOB CTA Chest with PE protocol TECHNIQUE: Axial imaging with 2-D and 3-D reconstruction. 90cc of Isovue-[address] exam was performed using one or more the following dose reduction techniques: Automated exposure control, adjustment of the MA and/or Kv according to patient size, or use of the iterative reconstruction technique. History: Left-sided chest pain COMPARISON: None THYROID: Unremarkable TRACHEA AND BRONCHI: Patent ESOPHAGUS: Unremarkable. HEART: Within normal limits PERICARDIAL EFFUSION: None CORONARY ARTERY CALCIFICATION: None MEDIASTINUM: No adenopathy. No pneumoperitoneum. No mediastinal hematoma. PULMONARY SLICK: No hilar mass or adenopathy is seen. THORACIC AORTA Unremarkable PULMONARY EMBOLUS: None LUNG NODULE None LUNGS: Mild atelectasis PLEURAL EFFUSION: None PNEUMOTHORAX: No pneumothorax seen. CHEST WALL: No abnormality AXILLA: Unremarkable BONY STRUCTURES Intact UPPER ABDOMEN: Images of the upper abdomen are noncontributory. CT/CT angio chest PE protocol IMPRESSION: No acute pulmonary embolus. Impression dictated by: Zachary Castle M.D.08/01/2024 6:05 PM Dictation Location: [facility] Transcribed By: [facility] 08/01/241804 Dictated By: Zachayr Castle DO 08/01/241801 Signed By: 08/01/241804 Normal [facility] Calcium [Mass/volume] in Ser um or PlasmaOrdered By: Allen Cheung on 08-01-2024 Calcium [Mass/Vol] Calcium [Mass/volume ] in Serum or Plasma 8.6-10.3 [facility] Carbon dioxide, total [Moles /volume] in Serum or PlasmaOrdered By: Allen Cheung on 08-01-2024 CO2 [Moles/Vol] Carbon dioxide, tota l [Moles/volume] in Serum or Plasma 21.0-31.0 [facility] Chloride [Moles/volume] in S katharine or PlasmaOrdered By: Allen Cheung on 08-01-2024 Chloride [Moles/Vol] Chloride [Moles/vol ume] in Serum or Plasma 98-107 [facility] Complete Blood Count Auto Di ffon 08-01-2024 Basophils (Bld) [#/Vol] 0.1 10*3/uL Normal 0.0-0.2 [facility] Comment on above: Result Comment: PERF ORMED BY: [place] [address] PATHOLOGIST HEALTH CENTER ASSISTANT FAREED DAVALOS M.D. Performed By: #### C K, HS TROP, PTT, BNP, PT, BMP, HEPATIC, CBC #### [facility] [address] [place] [address] Basophils/100 WBC (Bld) 1.4 % Normal . [facility] Comment on above: Performed By: #### C K, HS TROP, PTT, BNP, PT, BMP, HEPATIC, CBC #### [facility] [address] Eosinophils (Bld) [#/Vol] 0.3 10*3/uL Normal 0.0-0.45 [facility] Comment on above: Performed By: #### C K, HS TROP, PTT, BNP, PT, BMP, HEPATIC, CBC #### [address] Eosinophils/100 WBC (Bld) 3.0 % Normal . [facility] Comment on above: Performed By: #### C K, HS TROP, PTT, BNP, PT, BMP, HEPATIC, CBC #### [address] Erythrocyte distribution width (RBC) [Ratio] 12.8 % Normal 12.0-14.8 [facility] Comment on above: Performed By: #### C K, HS TROP, PTT, BNP, PT, BMP, HEPATIC, CBC #### [address] Hematocrit (Bld) [Volume fraction] 43.5 % Normal 38.8-50.0 [facility] Comment on above: Performed By: #### C K, HS TROP, PTT, BNP, PT, BMP, HEPATIC, CBC #### [address] Hemoglobin (Bld) [Mass/Vol] 15.1 g/dL Normal 13.0-17.0 [facility] Comment on above: Performed By: #### C K, HS TROP, PTT, BNP, PT, BMP, HEPATIC, CBC #### [address] Lymphocytes (Bld) [#/Vol] 3.8 10*3/uL Normal 1.00-4.8 [facility] Comment on above: Performed By: #### C K, HS TROP, PTT, BNP, PT, BMP, HEPATIC, CBC #### [address] Lymphocytes/100 WBC (Bld) 37.5 % Normal . [facility] Comment on above: Performed By: #### C K, HS TROP, PTT, BNP, PT, BMP, HEPATIC, CBC #### [address] MCH (RBC) [Entitic mass] 30.6 pg Normal 27.5-35.2 [facility] Comment on above: Performed By: #### C K, HS TROP, PTT, BNP, PT, BMP, HEPATIC, CBC #### [address] MCV (RBC) [Entitic vol] 88.2 fL Normal 83.5-101 [facility] Comment on above: Performed By: #### C K, HS TROP, PTT, BNP, PT, BMP, HEPATIC, CBC #### [address] Mean Corpuscular HGB Conc 34.7 g/dL Normal 32.5-35.6 [facility] Comment on above: Performed By: #### C K, HS TROP, PTT, BNP, PT, BMP, HEPATIC, CBC #### [address] Monocytes (Bld) [#/Vol] 0.6 10*3/uL Normal 0.0-0.8 [facility] Comment on above: Performed By: #### C K, HS TROP, PTT, BNP, PT, BMP, HEPATIC, CBC #### [address] Monocytes/100 WBC (Bld) 18.75 % Normal 0.00-20.00 [facility] Comment on above: Performed By: #### C K, HS TROP, PTT, BNP, PT, BMP, HEPATIC, CBC #### [address] Monocytes/100 WBC (Bld) 5.7 % Normal . [facility] Comment on above: Performed By: #### C K, HS TROP, PTT, BNP, PT, BMP, HEPATIC, CBC #### [address] Neutrophils (Bld) [#/Vol] 5.3 10*3/uL Normal 1.8-7.7 [facility] Comment on above: Performed By: #### C K, HS TROP, PTT, BNP, PT, BMP, HEPATIC, CBC #### [address] Neutrophils/100 WBC (Bld) 52.4 % Normal . [facility] Comment on above: Performed By: #### C K, HS TROP, PTT, BNP, PT, BMP, HEPATIC, CBC #### [address] NRBC% 0.1 /100{WBC} Normal 0-0.[address] [facility] Comment on above: Performed By: #### C K, HS TROP, PTT, BNP, PT, BMP, HEPATIC, CBC #### [address] Platelet mean volume (Bld) [Entitic vol] 8.5 fL Normal 6.6-10.1 [facility] Comment on above: Performed By: #### C K, HS TROP, PTT, BNP, PT, BMP, HEPATIC, CBC #### [address] Platelets (Bld) [#/Vol] 343 10*3/uL Normal 150-450 [facility] Comment on above: Performed By: #### C K, HS TROP, PTT, BNP, PT, BMP, HEPATIC, CBC #### [address] RBC (Bld) [#/Vol] 4.93 10*6/uL Normal 3.90-5.60 [facility] Comment on above: Performed By: #### C K, HS TROP, PTT, BNP, PT, BMP, HEPATIC, CBC #### [address] WBC (Bld) [#/Vol] 10.2 10*3/uL Normal 4.1-10.5 [facility] Comment on above: Performed By: #### C K, HS TROP, PTT, BNP, PT, BMP, HEPATIC, CBC #### [address] Creatine Kinaseon 08-01-2024 CK [Catalytic activity/Vol] 66 U/L Normal 30-223 [facility] Comment on above: Performed By: #### C K, HS TROP, PTT, BNP, PT, BMP, HEPATIC, CBC ####[facility] [id number] [place] [id number] [facility] Creatine kinase [Enzymatic a ctivity/volume] in Serum or PlasmaOrdered By: Allen Cheung on 08-01-2024 CK [Catalytic activity/Vol] Creatine kinase [Enzymatic activity/volume] in Serum or Plasma 30-223 [facility] Creatinine [Mass/volume] in Serum or PlasmaOrdered By: Allen Cheung on 08-01-2024 Creatinine [Mass/Vol] Creatinine [Mass/v olume] in Serum or Plasma 0.70-1.30 [facility] ECG 12 lead ECGon 08-01-2024 ECG 12 lead ECG [facility] [place] [address] [place] [address] Electrocardiograph Report Signed Patient: Allie Funes MR#: [id number] : 1990 Acct:[id number] Age/Sex: 34 / M ADM Date: 08/01/24 Loc: ER Room: Type: [facility] ER Attending Dr: Ordering Provider: Allen Cheung DO Date of Service: 08/01/2412/18/1640 ECG/ECG 12 lead ECG: CHEST PAIN Copies to: Test Reason : Blood Pressure : 134/82 mmHG Vent. Rate : 132 BPM Atrial Rate : 132 BPM P-R Int : 96 ms QRS Dur : 164 ms QT Int : 394 ms P-R-T Axes : * 197 26 degrees QTcB Int : 583 ms Sinus tachycardia with short CO Right bundle branch block Possible Inferior infarct , age undetermined Abnormal ECG When compared with ECG of 19-Feb-2016 09:44, CO interval has decreased Vent. rate has increased by 52 bpm QRS duration has increased Borderline criteria for Inferior infarct are now present T wave amplitude has increased in Lateral leads Confirmed by Allen Cheung DO ([id number]) on 08/01/2024 7:18:48 PM Referred By: Electronically Signed By: Allen Cheung DO Transcribed By: MUS Signed By Allen Cheung DO 1917 Normal [facility] Eosinophils Auto (Bld) [#/Vo l]Ordered By: Allen Cheung on 08-01-2024 Eosinophils (Bld) [#/Vol] Automated eosinophil count 0.0-0.45 [facility] Eosinophils/100 WBC Auto (Bl d)Ordered By: Allen Cheung on 08-01-2024 Eosinophils/100 WBC (Bld) Automated eosinophil % . [facility] Erythrocyte distribution wid th Auto (RBC) [Ratio]Ordered By: Allen Cheung on 08-01-2024 Erythrocyte distribution width (RBC) [Ratio] Erythrocyte distribution width [Ratio] by Automated count 12.0-14.8 [facility] Globulin Calc (S) [Mass/Vol] Ordered By: Allen Cheung on 08-01-2024 Globulin (S) [Mass/Vol] Serum globulin measurement by calculation (mass/volume) [facility] Glucose [Mass/volume] in Ser um or PlasmaOrdered By: Allen Cheung on 08-01-2024 Glucose [Mass/Vol] Glucose [Mass/volume ] in Serum or Plasma 70-100 [facility] Comment on above: ADA recommended refe rence rangeRandom Glucose Reference Range is dependent on time and content of last meal. Glucose of more than 200 mg/dL in a nonstressed, ambulatory subject supports the diagnosis of Diabetes Mellitus. Hematocrit Auto (Bld) [Volum e fraction]Ordered By: Allen Cheung on 08-01-2024 Hematocrit (Bld) [Volume fraction] Hematocrit [Volume Fraction] of Blood by Automated count 38.8-50.0 [facility] Hemoglobin [Mass/volume] in BloodOrdered By: Allen Cheung on 08-01-2024 Hemoglobin (Bld) [Mass/Vol] Hemoglobin [Mass/volume] in Blood 13.0-17.0 [facility] Hepatic Panelon 08-01-2024 Albumin [Mass/Vol] 5.1 g/dL Normal 3.5-5.7 [facility] Comment on above: Performed By: #### C K, HS TROP, PTT, BNP, PT, BMP, HEPATIC, CBC #### [facility] [address] Albumin/Globulin [Mass ratio] 1.6 {ratio} Normal [facility] Comment on above: Performed By: #### C K, HS TROP, PTT, BNP, PT, BMP, HEPATIC, CBC #### [facility] [address] ALP [Catalytic activity/Vol] 76 U/L Normal 34-104 [facility] Comment on above: Performed By: #### C K, HS TROP, PTT, BNP, PT, BMP, HEPATIC, CBC #### [facility] [address] ALT [Catalytic activity/Vol] 26 U/L Normal 7-52 [facility] Comment on above: Performed By: #### C K, HS TROP, PTT, BNP, PT, BMP, HEPATIC, CBC #### [address] AST [Catalytic activity/Vol] 17 U/L Normal 13-39 [facility] Comment on above: Performed By: #### C K, HS TROP, PTT, BNP, PT, BMP, HEPATIC, CBC #### [address] Bilirubin [Mass/Vol] 1.3 mg/dL High 0.3-1.0 [facility] Comment on above: Result Comment: Samp les from patients who have taken Naproxen have shown spurious elevation in Total Bilirubin levels. A metabolite of Naproxen, O-desmethylnaproxen, has been shown to interfere with the Jendrassik-Grof method for measuring Total Bilirubin. Performed By: #### C K, HS TROP, PTT, BNP, PT, BMP, HEPATIC, CBC #### [address] Bilirubin,Indirect 1.1 mg/dL Normal [facility] Comment on above: Performed By: #### C K, HS TROP, PTT, BNP, PT, BMP, HEPATIC, CBC #### [address] Bilirubin.indirect [Mass/Vol] 0.20 mg/dL High 0.03-0.18 [facility] Comment on above: Performed By: #### C K, HS TROP, PTT, BNP, PT, BMP, HEPATIC, CBC #### [address] Globulin (S) [Mass/Vol] 3.1 g/dL Normal [facility] Comment on above: Performed By: #### C K, HS TROP, PTT, BNP, PT, BMP, HEPATIC, CBC #### [facility] [address] Protein [Mass/Vol] 8.2 g/dL Normal 6.4-8.9 [facility] Comment on above: Performed By: #### C K, HS TROP, PTT, BNP, PT, BMP, HEPATIC, CBC #### [facility] [address] INR in Platelet poor plasma by Coagulation assayOrdered By: Allen Cheung on 08-01-2024 INR Coag (PPP) [Relative time] INR in Platelet poor plasma by Coagulation assay [facility] Comment on above: INR Therapeutic Rang e A) Pre- and Peroperative OAT started two weeks before surgery. NOT HIP SURGERY: 1.5 - 2.5 HIP SURGERY: 2 - 3B) Primary and secondary prevention of venous THROMBOSIS: 2 - 3C) Active venous thrombosis, pulmonary embolismand prevention of recurrent venous thrombosis: 2 - 3D) Prevention of arterial thromboembolismincluding patients with mechanical heart valves: 3 - 4.5 Leukocytes [#/volume] correc pelon for nucleated erythrocytes in Blood by Automated counOrdered By: Allen Cheung on 08-01-2024 WBC corrected for nucl RBC Auto (Bld) [#/Vol] Leukocytes [#/volume] corrected for nucleated erythrocytes in Blood by Automated coun 4.1-10.5 [facility] Lymphocytes Auto (Bld) [#/Vo l]Ordered By: Allen Cheung on 08-01-2024 Lymphocytes (Bld) [#/Vol] Lymphocytes [#/volume] in Blood by Automated count 1.00-4.8 [facility] Lymphocytes/100 WBC Auto (Bl d)Ordered By: Allen Cheung on 08-01-2024 Lymphocytes/100 WBC (Bld) Lymphocytes/100 leukocytes in Blood by Automated count . [facility] MCH Auto (RBC) [Entitic mass ]Ordered By: Allen Cheung on 08-01-2024 MCH (RBC) [Entitic mass] MCH [Entitic mass] by Automated count 27.5-35.2 [facility] MCHC Auto (RBC) [Mass/Vol]Or dered By: Allen Cheung on 08-01-2024 MCHC (RBC) [Mass/Vol] MCHC [Mass/volume] by Automated count 32.5-35.6 [facility] MCV Auto (RBC) [Entitic vol] Ordered By: Allen Cheung on 08-01-2024 MCV (RBC) [Entitic vol] MCV [Entitic volume] by Automated count 83.5-101 [facility] Monocyte distribution width [Entitic volume] in Blood by AutomatedOrdered By: Allen Cheung on 08-01-2024 Monocyte distribution width Auto (Bld) [Entitic vol] Monocyte distribution width [Entitic volume] in Blood by Automated 0.00-20.00 [facility] Monocytes Auto (Bld) [#/Vol] Ordered By: Allen Cheung on 08-01-2024 Monocytes (Bld) [#/Vol] Automated blood monocyte count 0.0-0.8 [facility] Monocytes/100 WBC Auto (Bld) Ordered By: Allen Cheung on 08-01-2024 Monocytes/100 WBC (Bld) Automated monocyte % . [facility] Natriuretic peptide B [Mass/ Vol]Ordered By: Allen Cheung on 08-01-2024 Natriuretic peptide B (Bld) [Mass/Vol] BNP ser/plas 5-100 [facility] Neutrophils Auto (Bld) [#/Vo l]Ordered By: Allen Cheung on 08-01-2024 Neutrophils (Bld) [#/Vol] Neutrophils [#/volume] in Blood by Automated count 1.8-7.7 [facility] Neutrophils/100 WBC Auto (Bl d)Ordered By: Allen Cheung on 08-01-2024 Neutrophils/100 WBC (Bld) Automated neutrophil % . [facility] No Panel InformationOrdered By: Allen Cheung on 08-01-2024 Estimated GFR (CKD-EPI) > 60.0 mL/Min [facility] Creatinine Clearance (Chem N/A [facility] Nucleated erythrocytes [Pres ence] in Blood by Automated countOrdered By: Allen Cheung on 08-01-2024 Nucleated RBC Auto Ql (Bld) Nucleated erythrocytes [Presence] in Blood by Automated count 0-0.5 [facility] Partial Thromboplastin Timeo n 08-01-2024 aPTT Coag (Bld) [Time] 32.1 s Normal 25.1-36.5 Th e [facility] Comment on above: Result Comment: A he matocrit value greater than 55% may lead to inaccurate results in coagulation testing. Patients having hematocrit values >55% require a special collection tube for coagulation studies. Please contact the laboratory at [phone] for redraw instructions. PERFORMED BY: [place] [address] PATHOLOGIST HEALTH CENTER ASSISTANT FAREED DAVALOS M.D. Performed By: #### C K, HS TROP, PTT, BNP, PT, BMP, HEPATIC, CBC #### [address] Platelet mean volume Auto (B ld) [Entitic vol]Ordered By: Allen Cheung on 08-01-2024 Platelet mean volume (Bld) [Entitic vol] Platelet mean volume [Entitic volume] in Blood by Automated count 6.6-10.1 [facility] Platelets Auto (Bld) [#/Vol] Ordered By: Allen Cheung on 08-01-2024 Platelets (Bld) [#/Vol] Platelets [#/volume] in Blood by Automated count 150-450 [facility] Potassium [Moles/volume] in Serum or PlasmaOrdered By: Allen Cheung on 08-01-2024 Potassium [Moles/Vol] Potassium [Moles/v olume] in Serum or Plasma Low 3.5-5.1 [facility] Protein [Mass/volume] in Ser um or PlasmaOrdered By: Allen Cheung on 08-01-2024 Protein [Mass/Vol] Protein [Mass/volume ] in Serum or Plasma 6.4-8.9 [facility] Prothrombin Time INRon 08-01 INR Coag (PPP) [Relative time] 1.0 {INR} Normal [facility] Comment on above: Result Comment: INR Therapeutic Range A) Pre- and Peroperative OAT started two weeks before surgery. NOT HIP SURGERY: 1.5 - 2.5 HIP SURGERY: 2 - 3 B) Primary and secondary prevention of venous THROMBOSIS: 2 - 3 C) Active venous thrombosis, pulmonary embolism and prevention of recurrent venous thrombosis: 2 - 3 D) Prevention of arterial thromboembolism including patients with mechanical heart valves: 3 - 4.5 Performed By: #### C K, HS TROP, PTT, BNP, PT, BMP, HEPATIC, CBC #### [facility] [address] PT Coag (PPP) [Time] 11.8 s Normal 9.0-12.9 [facility] Comment on above: Result Comment: A he matocrit value greater than 55% may lead to inaccurate results in coagulation testing. Patients having hematocrit values >55% require a special collection tube for coagulation studies. Please contact the laboratory at [phone] for redraw instructions. Performed By: #### C K, HS TROP, PTT, BNP, PT, BMP, HEPATIC, CBC #### [facility] [address] [place] [id number] [facility] Prothrombin time (PT)Ordered By: Allen Cheung on 08-01-2024 PT Coag (PPP) [Time] Prothrombin time (PT) 9.0- 12.9 [facility] Comment on above: A hematocrit value g reater than 55% may lead to inaccurate results in coagulation testing. Patients having hematocrit values >55% require a special collection tube for coagulation studies. Please contact the laboratory at [phone] for redraw instructions. RBC Auto (Bld) [#/Vol]Ordere d By: Allen Cheung on 08-01-2024 RBC (Bld) [#/Vol] Erythrocytes [#/volu me] in Blood by Automated count 3.90-5.60 [facility] Respiratory (Upper) Panel, P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 #### L IPNF, 22295-0, 28689-0 ####[facility] [id number] [place] [address] [place] LDL/HDL RATIO, NF 3.11 mg/dL High <2.54 [facility] Comment on above: Order Comment: Speci men Type: BLOOD SPECIMENOrdering Facility: [facility] Address: [address] [place] [address] Result Comment: Refe rence: 1. National Cholesterol Education Program ATP III Guideline At-A-Glance Quick Desk Reference: National Heart, Lung, and Blood [place]. National Institutes of Health. 2001: NIH Publication No. 01-3305. 2. An International Atherosclerosis Society position paper: global recommendations for the management of dyslipidemia: executive summary, Atherosclerosis. 2014: 232(2):410-413. Performed By: #### L IPNF, 72430-6, 16849-6 ####[facility] [id number] [place] [address] [place] NON HDL CHOL, NF 148 mg/dL High <130 [facility] Comment on above: Order Comment: Speci men Type: BLOOD SPECIMENOrdering Facility: [facility] Address: [address] [place] [address] Result Comment: <130 mg/dL, Optimal 130-159 mg/dL, Near optimal/above optimal 160-189 mg/dL, Borderline high 190-219 mg/dL, High >219 mg/dL, Very high Secondary prevention optimal non HDL Cholesterol levels are recommended to be <100 mg/dL Performed By: #### L IPNF, 65834-7, 24006-9 ####[facility] [id number] [place] [address] [place] T CHOL/HDL RATIO NF 5.11 mg/dL High <5.10 [facility] Comment on above: Order Comment: Speci men Type: BLOOD SPECIMENOrdering Facility: [facility] Address: [address] [place] [address] Performed By: #### L IPNF, 58331-2, 80127-0 ####[facility] [id number] [place] [address] [place] TRIGLYCERIDES, NF 181 mg/dL High <150 [facility] Comment on above: Order Comment: Melissai men Type: BLOOD SPECIMENOrdering Facility: [facility] Address: [address] [place] [address] Result Comment: <150 mg/dL, Normal 150-199 mg/dL, Borderline high 200-499 mg/dL, High >499 mg/dL, Very high Performed By: #### L IPNF, 20401-3, 58465-9 ####[facility] [id number] [place] [address] [place] VLDL CHOLESTEROL, NF 36 mg/dL High <30 [facility] Comment on above: Order Comment: Speci men Type: BLOOD SPECIMENOrdering Facility: [facility] Address: [address] [place] [address] Performed By: #### L IPNF, 25034-0, 26986-4 ####[facility] [id number] [place] [address] [place] NT-proBNP [facility] 10-31 Natriuretic peptide.B prohormone N-Terminal [Mass/Vol] 88 pg/mL Normal <125 [facility] Comment on above: Order Comment: Speci men Type: BLOOD SPECIMENOrdering Facility: [facility] Address: [address] [place] [address] Performed By: #### L IPLUIS ENRIQUE, 11419-4, 27392-7 ####[facility] [id number] [place] [address] [place] No Panel Informationon 10-20 [facility] CBC AUTO DIFFon 06-27-2022 BASO # 0.1 103/ul Normal 0.0-0.1 [facility] Comment on above: Performed By: #### C BC #### [facility] [address] [place] [address] [address] Temi Lux Basophils/100 WBC (Bld) 0.9 % Normal 0.2-2.0 [facility] Comment on above: Performed By: #### C BC #### [facility] [address] [place] [address] [address] Temi Lux EO # 0.2 103/ul Normal 0.0-0.7 [facility] Comment on above: Performed By: #### C BC #### [facility] [address] [place] [address] Dr. Temi Lux Eosinophils/100 WBC (Bld) 2.1 % Normal 0.9-7.0 [facility] Comment on above: Performed By: #### C BC #### [facility] [address] [place] [address] Dr. Temi Lux Erythrocyte distribution width (RBC) [Ratio] 11.8 % Normal 11.0-15.0 [facility] Comment on above: Performed By: #### C BC #### [facility] [address] [place] [address] Dr. Temi Lux Hematocrit (Bld) [Volume fraction] 41.7 % Critically low 42.0-54.0 [facility] Comment on above: Performed By: #### C BC #### [facility] [address] [place] [address] Dr. Temi Lux Hemoglobin (Bld) [Mass/Vol] 14.7 g/dL Normal 14.0-18.0 [facility] Comment on above: Performed By: #### C BC #### [facility] [address] [place] [address] Dr. Temi Lux IG # 0.03 10e3/ul Normal 0.00-0.03 [facility] Comment on above: Performed By: #### C BC #### [facility] [address] [place] [address] Dr. Temi Lux IG % 0.3 % Normal 0.0-0.5 [facility] Comment on above: Performed By: #### C BC #### [facility] [address] [place] [address] Dr. Temi Lux LYMPH # 3.4 103/ul Normal 1.2-3.8 [facility] Comment on above: Performed By: #### C BC #### [facility] [address] [place] [address] Dr. Temi Lux Lymphocytes/100 WBC (Bld) 35.2 % Normal 20.5-60.0 [facility] Comment on above: Performed By: #### C BC #### [facility] [address] [place] [address] Dr. Temi Lux MANUAL DIFF REQ NO Normal [facility] Comment on above: Performed By: #### C BC #### [facility] [address] [place] [address] Dr. Temi Lux MCH (RBC) [Entitic mass] 31.3 pg Normal 25.9-34.0 [facility] Comment on above: Performed By: #### C BC #### [facility] [address] [place] [address] Dr. Temi Lux MCHC (RBC) [Mass/Vol] 35.3 g/dL Critically high 29.9-35.2 [facility] Comment on above: Performed By: #### C BC #### [facility] [address] [place] [address] Dr. Temi Lux MCV (RBC) [Entitic vol] 88.9 fL Normal 80.0-94.0 [facility] Comment on above: Performed By: #### C BC #### [facility] [address] [place] [address] Dr. Temi Lux MONO # 0.4 103/ul Normal 0.3-0.8 [facility] Comment on above: Performed By: #### C BC #### [facility] [address] [place] [address] Dr. Temi Lux Monocytes/100 WBC (Bld) 4.6 % Normal 1.7-12.0 [facility] Comment on above: Performed By: #### C BC #### [facility] [address] [place] [address] Dr. Temi Lux NEUT # 5.4 103/ul Normal 1.4-6.5 [facility] Comment on above: Performed By: #### C BC #### [facility] [address] [place] [address] Dr. Temi Lux Neutrophils/100 WBC (Bld) 56.9 % Normal 43.0-75.0 [facility] Comment on above: Performed By: #### C BC #### [facility] [address] [place] [address] Dr. Temi Lux Platelet mean volume (Bld) [Entitic vol] 10.1 fL Normal 9.5-13.5 [facility] Comment on above: Performed By: #### C BC #### [facility] [address] [place] [address] Dr. Temi Lux PLT 291 103/ul Normal 150-450 [facility] Comment on above: Performed By: #### C BC #### [facility] [address] [place] [address] Dr. Temi Lux RBC 4.69 106/ul Critically low 4.70-6.10 [facility] Comment on above: Performed By: #### C BC #### [facility] [address] [place] [address] Dr. Temi Lux WBC 9.5 103/ul Normal 4.0-11.0 [facility] Comment on above: Performed By: #### C BC #### [facility] [address] [place] [address] Dr. Temi Lux PROF CHEM 8 (BAS METB)on Anion gap [Moles/Vol] 12.5 mmol/L Normal [facility] Comment on above: Performed By: #### B BRANNON, HSTROPN #### [facility] [address] [place] [address] Dr. Temi Lux Calcium [Mass/Vol] 9.2 mg/dL Normal 8.5-10.1 [facility] Comment on above: Performed By: #### B BRANNON, HSTROPN #### [facility] [address] [place] [address] Dr. Temi Lux Chloride [Moles/Vol] 102 mmol/L Normal 98-107 [facility] Comment on above: Performed By: #### B BRANNON, HSTROPN #### [facility] [address] [place] [address] Dr. Temi Lux CO2 [Moles/Vol] 26.0 mmol/L Normal 21.0-32.0 [facility] Comment on above: Performed By: #### B MP, HSTROPN #### [facility] [address] [address] [address] Temi Lux Creatinine [Mass/Vol] 0.91 mg/dL Normal 0.70-1.30 [facility] Comment on above: Performed By: #### B MP, HSTROPN #### [facility] [address] [address] [address] Temi Lux EGFR-AF PRYDEINIG >60 Normal >=60 [facility] Comment on above: Performed By: #### B MP, HSTROPN #### [facility] [address] [place] [address] [address] Temi Lux EGFR-NON AF PRYDEINIG >60 Normal >=60 [facility] Comment on above: Performed By: #### B MP, HSTROPN #### [facility] [address] [address] [address] Temi Lux Glucose [Mass/Vol] 100 mg/dL Normal 74-106 [facility] Comment on above: Performed By: #### B MP, HSTROPN #### [facility] [address] [address] [address] Temi Lux Potassium [Moles/Vol] 4.5 mmol/L Normal 3.5-5.1 [facility] Comment on above: Performed By: #### B MP, HSTROPN #### [facility] [address] [address] [address] Temi Lux Sodium [Moles/Vol] 136 mmol/L Normal 136-145 [facility] Comment on above: Performed By: #### B MP, HSTROPN #### [facility] [address] [address] [address] Temi Lux Urea nitrogen [Mass/Vol] 16.0 mg/dL Normal 7.0-18.0 [facility] Comment on above: Performed By: #### B MP, HSTROPN #### [facility] [address] [address] [address] Temi Lux Urea nitrogen/Creatinine [Mass ratio] 17.6 mg/mg Normal [facility] Comment on above: Performed By: #### B MP, HSTROPN #### [facility] [address] [place], [place] [address] Dr. Temi Lux TROPONIN, HIGH SENSITIVITYon 06-27-2022 HSTROP 4.2 pg/mL Normal 4.0-76.1 [facility] Comment on above: Result Comment: CUT- OFF POINTS HAVE BEEN ESTABLISHED BASED ON THE FOURTH UNIVERSAL DEFINITIONS OF MYOCARDIAL INFARCTION. THE UPPER REFERENCE LIMIT (URL) OF TROPONIN, DEFINED THE 99TH PERCENTILE OF cTnI DISTRIBUTION IN A REFERENCE POPULATION, HAS BEEN CONFIRMED THE DECISION THRESHOLD FOR VT DIAGNOSIS. Performed By: #### B MP, HSTROPN #### [facility] [address] [place], [place] [address] Dr. Temi Lux XR CHEST 1 Von [...] acute cardiopulmonary abnormalities. Electronically authenticated by: BILL GOZNALEZ Date: 2022-06-27 18:22 Normal [facility] Covid-19 PCR (CVDTB)on 12-24 SARS-CoV-2 (COVID-19) RNA HERBERTH+probe Ql (Unsp spec) Detected Critically abnormal NOT DETECTED [facility] Comment on above: Result Comment: This test is not yet approved or cleared by the [place] FDA. When there are no FDA-approved or cleared tests available, and other criteria are met, FDA can make tests available under an emergency access mechanism called an Emergency Use Authorization (EUA). The EUA for this test is supported by the Surgical Sales Representative of Health and Human Service's declaration that [...] for this test is supported by the Surgical Sales Representative of Health and Human Service's (HHS's) declaration [...] be used). Performed By: #### Gino PETER, DIA #### [facility] [address] [place] [address] Dr. Temi Lux CARDIAC KAROL 3-6on 2 CK [Catalytic activity/Vol] 72 U/L Normal 39-308 [facility] Comment on above: Performed By: #### Gino PETER, DIA #### [facility] [address] [place] [address] Dr. Temi Lux CK.MB [Mass/Vol] 0.71 ng/mL Normal <=3.60 [facility] Comment on above: Performed By: #### Gino PETER, DIA #### [facility] [address] [place] [address] Dr. Temi Lux HSTROP 4.7 pg/mL Normal 4.0-76.1 [facility] Health Comment on above: Result Comment: CUT- OFF POINTS HAVE BEEN ESTABLISHED BASED ON THE FOURTH UNIVERSAL DEFINITIONS OF MYOCARDIAL INFARCTION. THE UPPER REFERENCE LIMIT (URL) OF TROPONIN, DEFINED THE 99TH PERCENTILE OF cTnI DISTRIBUTION IN A REFERENCE POPULATION, HAS BEEN CONFIRMED THE DECISION THRESHOLD FOR VT DIAGNOSIS. Performed By: #### Gino PETER, BMP #### [facility] [address] [place] [address] Dr. Temi Lux CARDIAC KAROL ADMITon 022 CK [Catalytic activity/Vol] 80 U/L Normal 39-308 [facility] Comment on above: Performed By: #### C MADM, BMP #### [facility] [address] [place] [address] Dr. Temi Lux CK.MB [Mass/Vol] 0.66 ng/mL Normal <=3.60 [facility] Comment on above: Performed By: #### C MADM, BMP #### [facility] [address] [place] [address] Dr. Temi Lux HSTROP 5.6 pg/mL Normal 4.0-76.1 [facility] Comment on above: Result Comment: CUT- OFF POINTS HAVE BEEN ESTABLISHED BASED ON THE FOURTH UNIVERSAL DEFINITIONS OF MYOCARDIAL INFARCTION. THE UPPER REFERENCE LIMIT (URL) OF TROPONIN, DEFINED THE 99TH PERCENTILE OF cTnI DISTRIBUTION IN A REFERENCE POPULATION, HAS BEEN CONFIRMED THE DECISION THRESHOLD FOR VT DIAGNOSIS. Performed By: #### C STEVENM, BMP #### [facility] [address] [place] [address] Dr. Temi Lux BARBARA 25 ng/mL Normal 16-96 [facility] Comment on above: Performed By: #### C STEVENM, BMP #### [facility] [address] [place] [address] Dr. Temi Lux CBC AUTO DIFFon 12-17-2021 BASO # 0.1 103/ul Normal 0.0-0.1 [facility] Comment on above: Performed By: #### C BC #### [facility] [address] [place] [address] Dr. Temi Lux Basophils/100 WBC (Bld) 0.7 % Normal 0.2-2.0 [facility] Comment on above: Performed By: #### C BC #### [facility] [address] [place] [address] Dr. Temi Lux EO # 0.3 103/ul Normal 0.0-0.7 [facility] Comment on above: Performed By: #### C BC #### [facility] [address] [place] [address] Dr. Temi Lux Eosinophils/100 WBC (Bld) 2.6 % Normal 0.9-7.0 [facility] Comment on above: Performed By: #### C BC #### [facility] [address] [place] [address] Dr. Temi Lux Erythrocyte distribution width (RBC) [Ratio] 11.7 % Normal 11.0-15.0 [facility] Comment on above: Performed By: #### C BC #### [facility] [address] [place] [address] Dr. Temi Lux Hematocrit (Bld) [Volume fraction] 41.8 % Critically low 42.0-54.0 [facility] Comment on above: Performed By: #### C BC #### [facility] [address] [place] [address] Dr. Temi Lux Hemoglobin (Bld) [Mass/Vol] 14.3 g/dL Normal 14.0-18.0 [facility] Comment on above: Performed By: #### C BC #### [facility] [address] [place] [address] Dr. Temi Lux IG # 0.03 10e3/ul Normal 0.00-0.03 [facility] Comment on above: Performed By: #### C BC #### [facility] [address] [place] [address] Dr. Temi Lux IG % 0.2 % Normal 0.0-0.5 [facility] Comment on above: Performed By: #### C BC #### [facility] [address] [place] [address] Dr. Temi Lux LYMPH # 3.7 103/ul Normal 1.2-3.8 [facility] Comment on above: Performed By: #### C BC #### [facility] [address] [place] [address] Dr. Temi Lux Lymphocytes/100 WBC (Bld) 31.0 % Normal 20.5-60.0 [facility] Comment on above: Performed By: #### C BC #### [facility] [address] [place] [address] Dr. Temi Lux MANUAL DIFF REQ NO Normal [facility] Comment on above: Performed By: #### C BC #### [facility] [address] [address] [address] Temi Lux MCH (RBC) [Entitic mass] 31.2 pg Normal 25.9-34.0 [facility] Comment on above: Performed By: #### C BC #### [facility] [address] [place] [address] Dr. Temi Lux MCHC (RBC) [Mass/Vol] 34.2 g/dL Normal 29.9-35.2 [facility] Comment on above: Performed By: #### C BC #### [facility] [address] [place] [address] Dr. Temi Lux MCV (RBC) [Entitic vol] 91.1 fL Normal 80.0-94.0 [facility] Comment on above: Performed By: #### C BC #### [facility] [address] [place] [address] Dr. Temi Lux MONO # 0.7 103/ul Normal 0.3-0.8 [facility] Comment on above: Performed By: #### C BC #### [facility] [address] [place] [address] Dr. Temi Lux Monocytes/100 WBC (Bld) 5.4 % Normal 1.7-12.0 [facility] Comment on above: Performed By: #### C BC #### [facility] [address] [place] [address] Dr. Temi Lux NEUT # 7.3 103/ul Critically high 1.4-6.5 [facility] Comment on above: Performed By: #### C BC #### [facility] [address] [place] [address] Dr. Temi Lux Neutrophils/100 WBC (Bld) 60.1 % Normal 43.0-75.0 [facility] Comment on above: Performed By: #### C BC #### [facility] [address] [place] [address] Dr. Temi Lux Platelet mean volume (Bld) [Entitic vol] 10.1 fL Normal 9.5-13.5 [facility] Comment on above: Performed By: #### C BC #### [facility] [address] [address] [address] Temi Lux PLT 252 103/ul Normal 150-450 [facility] Comment on above: Performed By: #### C BC #### [facility] [address] [place], [place] [id number] Dr. Temi Lux RBC 4.59 106/ul Critically low 4.70-6.10 [facility] Comment on above: Performed By: #### C BC #### [facility] [address] [place] [address] Dr. Temi Lux WBC 12.1 103/ul Critically high 4.0-11.0 [facility] Comment on above: Performed By: #### C BC #### [facility] [address] [place] [address] Dr. Temi Lux D-DIMERon 12-17-2021 D-DIMER <0.19 Normal <=0.59 [facility] Comment on above: Performed By: #### D DIM #### [facility] [address] [place] [address] Dr. Temi Lux D-DIMER COMMENTS SEE BELOW Normal [facility] Comment on above: Result Comment: Incr eases [...] hospitalization. Performed By: #### D DIM #### [facility] [address] [place] [address] Dr. Temi Lux PROF CHEM 8 (BAS METB)on Anion gap [Moles/Vol] 12.4 mmol/L Normal [facility] Comment on above: Performed By: #### C MADM, BMP #### [facility] [address] [place] [address] Dr. Temi Lux Calcium [Mass/Vol] 9.1 mg/dL Normal 8.5-10.1 [facility] Comment on above: Performed By: #### C ROME, BMP #### [facility] [address] [place] [address] Dr. Temi Lux Chloride [Moles/Vol] 105 mmol/L Normal 98-107 [facility] Comment on above: Performed By: #### C STEVENM, BMP #### [facility] [address] [place] [address] Dr. Temi Lux CO2 [Moles/Vol] 25.5 mmol/L Normal 21.0-32.0 [facility] Comment on above: Performed By: #### C ROME, BMP #### [facility] [address] [place] [address] Dr. Temi Lux Creatinine [Mass/Vol] 1.10 mg/dL Normal 0.70-1.30 [facility] Comment on above: Performed By: #### C ROME, BMP #### [facility] [address] [place] [address] Dr. Temi Lux EGFR-AF PRYDEINIG >60 Normal >=60 [facility] Comment on above: Performed By: #### C ROME, BMP #### [facility] [address] [place] [address] Dr. Temi Lux EGFR-NON AF PRYDEINIG >60 Normal >=60 [facility] Comment on above: Performed By: #### C ROME, BMP #### [facility] [address] [place] [address] Dr. Temi Lux Glucose [Mass/Vol] 108 mg/dL Critically high 74-106 [facility] Comment on above: Performed By: #### C ROME, BMP #### [facility] [address] [place] [address] Dr. Temi Lux Potassium [Moles/Vol] 3.9 mmol/L Normal 3.5-5.1 [facility] Comment on above: Performed By: #### C STEVENM, BMP #### [facility] [address] [place] [address] Dr. Temi Lux Sodium [Moles/Vol] 139 mmol/L Normal 136-145 [facility] Comment on above: Performed By: #### C ROME, DIA #### [facility] [address] [address] [address] Temi Lux Urea nitrogen [Mass/Vol] 23.0 mg/dL Critically high 7.0-18.0 [facility] Comment on above: Performed By: #### C ROME, BMP #### [facility] [address] [address] [address] Temi Lux Urea nitrogen/Creatinine [Mass ratio] 20.9 mg/mg Normal [facility] Comment on above: Performed By: #### C ROME, BMP #### [facility] [address] [address] [address] Temi Lux XR CHEST 2 Von [...] BRENTON SALAS Date: 2021-12-16 23:05 Normal [facility] Covid-19 PCR (CVDTBH)on 07-28 SARS-CoV-2 (COVID-19) RNA HERBERTH+probe Ql (Unsp spec) Not detected Normal NOT DETECTED [facility] Comment on above: Result Comment: This test is not yet approved or cleared by the [place] FDA. When there are no FDA-approved or cleared tests available, and other criteria are met, FDA can make tests available under an emergency access mechanism called an Emergency Use Authorization (EUA). The EUA for this test is supported by the [place] of Health and Human Service's (HHS's) declaration [...] consistent with SARS-CoV-2. Performed By: #### [facility] #### [facility] [address] [place] [address] Dr. Temi Lux XR hand RT min 3V*on 021 XR hand RT min 3V* [facility] [email or web address] Other XR hand RT min 3V* [facility] [email or web address] Other XR hand RT min 3V* [address] [place] [address] [email or web address] Other XR hand RT min 3V* [place] [address] [email or web address] Other XR hand RT min 3V* XRay Report [email or web address] Other XR hand RT min 3V* Signed [email or web address] Other XR hand RT min 3V* Patient: Danie Funes MR#: [id number] [email or web address] Other XR hand RT min 3V* 6091 [email or web address] Other XR hand RT min 3V* : 1990 Acct:[id number] [email or web address] Other XR hand RT min 3V* Age/Sex: 31 / M ADM Date: 04/12/21 [email or web address] Other XR hand RT min 3V* Loc: XDUCLY Room: Ty pe: REG CLI [email or web address] Other XR hand RT min 3V* 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 The [email or web address] Other XR hand RT min 3V* fingers were bent ba ck. Pain and swelling to the second and third distal metacarpals and over the [email or web address] Other XR hand RT min 3V* index and the middle fingers. Old fourth and fifth metacarpal fractures. [email or web address] Other XR hand RT min 3V* XR hand RT min 3V* [email or web address] Other XR hand RT min 3V* COMPARISON: None [email or web address] Other XR hand RT min 3V* FINDINGS: AP, latera l and oblique views of the right hand were obtained. A small cortical [email or web address] Other XR hand RT min 3V* fracture is demonstr ated at the base of the mid phalanx of the middle finger radially. Old fractures [email or web address] Other XR hand RT min 3V* are shown at the fou rth and fifth metacarpals. No other significant acute bone or joint [email or web address] Other XR hand RT min 3V* abnormalities are no pelon. Moderate soft tissue swelling is shown at the proximal portions of the [email or web address] Other XR hand RT min 3V* index and middle fingers. [email or web address] Other XR hand RT min 3V* X R/XR hand RT min 3V* [email or web address] Other XR hand RT min 3V* IMPRESSION: [email or web address] Other XR hand RT min 3V* A SMALL CORTICAL FRA CTURE AT THE BASE OF THE MID PHALANX OF THE MIDDLE FINGER. [email or web address] Other XR hand RT min 3V* Impression dictated by: Gregory Bhatt M.D.04/12/2021 11:30 AM [email or web address] Other XR hand RT min 3V* Dictation Location: [address] [place] [address] [email or web address] Other XR hand RT min 3V* Transcribed By: [facility] 04/12/21 1130 [email or web address] Other XR hand RT min 3V* Dictated By: Gregory Bhatt MD 04/12/21 1125 [email or web address] Other XR hand RT min 3V* Signed By: [email or web address] Other XR hand RT min 3V* 04/12/21 1130 [facility] [employer] Other Vital Signs Date Time Vital Sign Value Performing Clinician Facility 09-09-2024 16:04-0400 Body mass index (BMI) [Ratio] 30.1 kg/m2 Esme Hdz MD Work Phone: [facility] 09-09-2024 16:04-0400 Body weight 106.32 kg Esme Hdz MD Work Phone: [facility] 09-09-2024 16:04-0400 Diastolic blood pressure 95 mm[Hg] Esme Hdz MD Work Phone: [facility] 09-09-2024 16:04-0400 Heart rate 97 /min Esme Hdz MD Work Phone: [facility] 09-09-2024 16:04-0400 SaO2% (BldA) [Mass fraction] 100 % Esme Hdz MD Work Phone: [facility] 09-09-2024 16:04-0400 Systolic blood pressure 143 mm[Hg] Esme Hdz MD Work Phone: [facility] 08-01-2024 19:16-0500 Diastolic blood pressure 73 mm[Hg] PHYSICIAN NO [facility] 08-01-2024 19:16-0500 Heart rate 73 /min PHYSICIAN NO [facility] 08-01-2024 19:16-0500 Respiratory rate 21 /min PHYSICIAN NO [facility] 08-01-2024 19:16-0500 SaO2% (BldA) [Mass fraction] 98 % PHYSICIAN NO [facility] 08-01-2024 19:16-0500 Systolic blood pressure 128 mm[Hg] PHYSICIAN NO [facility] 08-01-2024 18:39-0500 Body height 193.04 cm PHYSICIAN NO [facility] 08-01-2024 18:39-0500 Body weight 112 kg PHYSICIAN NO [facility] 08-01-2024 16:50-0500 Body temperature 98.4 [degF] PHYSICIAN NO [facility] 12-29-2023 12:33-0400 Body height 187.96 cm PHYSICIAN NO [facility] 12-29-2023 12:33-0400 Body mass index (BMI) [Ratio] 30.9 kg/m2 PHYSICIAN NO [facility] 12-29-2023 12:33-0400 Body temperature 97.8 [degF] PHYSICIAN NO [facility] 12-29-2023 12:33-0400 Body weight 109.42 kg PHYSICIAN NO [facility] 12-29-2023 12:33-0400 Diastolic blood pressure 85 mm[Hg] PHYSICIAN NO [facility] 12-29-2023 12:33-0400 Heart rate 101 /min PHYSICIAN NO [facility] 12-29-2023 12:33-0400 Respiratory rate 18 /min PHYSICIAN NO [facility] 12-29-2023 12:33-0400 SaO2% (BldA) [Mass fraction] 97 % PHYSICIAN NO [facility] 12-29-2023 12:33-0400 Systolic blood pressure 133 mm[Hg] PHYSICIAN NO [facility] 11-01-2023 14:22-0400 Diastolic blood pressure 86 mm[Hg] Esme Hdz MD Work Phone: [facility] 11-01-2023 14:22-0400 Systolic blood pressure 128 mm[Hg] Esme Hdz MD Work Phone: [facility] 11-01-2023 14:19-0400 Body mass index (BMI) [Ratio] 30.48 kg/m2 Esme Hdz MD Work Phone: [facility] 11-01-2023 14:19-0400 Body weight 107.68 kg Esme Hdz MD Work Phone: [facility] 11-01-2023 14:19-0400 Heart rate 92 /min Esme Hdz MD Work Phone: [facility] 11-01-2023 14:19-0400 SaO2% (BldA) [Mass fraction] 95 % Esme Hdz MD Work Phone: [facility] 10-20-2022 15:28-0400 Body weight 103.42 kg Esme Hdz MD Work Phone: [facility] 10-20-2022 15:28-0400 Diastolic blood pressure 85 mm[Hg] Esme Hdz MD Work Phone: [facility] 10-20-2022 15:28-0400 Heart rate 88 /min Esme Hdz MD Work Phone: [facility] 10-20-2022 15:28-0400 SaO2% (BldA) [Mass fraction] 98 % Esme Hdz MD Work Phone: [facility] 10-20-2022 15:28-0400 Systolic blood pressure 130 mm[Hg] Esme Hdz MD Work Phone: [facility] 10-20-2022 09:06-0400 Body height 188 cm Mri (I-Stat/1.5t) Work Phone: [facility] 10-20-2022 09:06-0400 Body weight 103.42 kg Mri (I-Stat/1.5t) Work Phone: [facility] 10-20-2022 09:06-0400 Diastolic blood pressure 81 mm[Hg] Mri (I-Stat/1.5t) Work Phone: [facility] 10-20-2022 09:06-0400 Heart rate 97 /min Mri (I-Stat/1.5t) Work Phone: [facility] 10-20-2022 09:06-0400 Systolic blood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 Contact Number: [phone] Patient last seen within the last year: Yes Date of last office visit: 11/01/2023 Reason For Call: patient states he has been having some left arm pain, tingling in his back and right neck pain feels like pins and needles. States this has been happening go tr the last 2 days . Advise patient he should go to his local ED Physician: Esme Hdz MD Patient was informed that non-urgent calls may be returned within the next three business days. Yes Erica Maldonado documented in this encounter [facility] 06-17-2024 Telephone encounter Note June 17, 2024 Patient Contact Number: [phone] Patient last seen within the last year: Yes Date of last office visit: 11/01/2023 Reason For Call: patient states he has been having some left arm pain, tingling in his back and right neck pain feels like pins and needles. States this has been happening go tr the last 2 days . Advise patient he should go to his local ED Physician: Esme Hdz MD Patient was informed that non-urgent calls may be returned within the next three business days. Yes Erica Maldonado [facility] 11-01-2023 History of Presen t illness Narrative Images from the original note were not included. [facility] [place] ADULT CONGENITAL HEART DISEASE [facility] OUTPATIENT VISIT DATE November 01, 2023 OUTPATIENT VISIT TYPE ESTABLISHED PRIMARY CARE PHYSICIAN: Carlos Arceo Sr. [address] [place] [address] CHIEF COMPLAINT: Follow up CONGENITAL CARDIAC HISTORY: [...] Procedure Laterality Date HEART CATHETERIZATION 02/2016 at [facility] HEART SURGERY HX 07/29/2016 s/p [...] OF 55%. [place] [address], POOR FUNCTIONAL CAPACITY FOR AGE AND GENDER. [...] which included preparing to see the patient, [id number] patient care, completing clinical documentation, obtaining and/or reviewing separately obtained history, performing a medically appropriate examination, counseling and educating the patient/family/caregiver, ordering medications, tests, or procedures, communicating with other HCPs (not separately reported), independently interpreting results (not separately reported), and care coordination (not separately reported). Esme Hdz MD Adult Congenital Heart Disease [facility] Desk J2-4 Appointments: [phone] documented in this encounter [facility] 11-01-2023 Note HNO ID: [id number] Author: ESME HDZ MD Service: ? Author Type: Physician Type: Progress Notes Filed: 11/05/2023 16:22 Note Text: [facility] [place] ADULT CONGENITAL HEART DISEASE CLINIC [facility] OUTPATIENT VISIT DATE November 01, 2023 OUTPATIENT VISIT TYPE ESTABLISHED PRIMARY CARE PHYSICIAN: Carlos Arceo Sr. [address] [place] [address] CHIEF COMPLAINT: Follow up CONGENITAL CARDIAC HISTORY: [...] Procedure Laterality Date HEART CATHETERIZATION 02/2016 at [facility] HEART SURGERY HX 07/29/2016 s/p [...] bilaterally. Neuro: Or (more content not included)... [facility] 10-20-2022 History of Presen t illness Narrative Images from the original note were not included. [facility] [place] ADULT CONGENITAL HEART DISEASE [facility] OUTPATIENT VISIT DATE October 20, 2022 OUTPATIENT VISIT TYPE ESTABLISHED PRIMARY CARE PHYSICIAN: Carlos Arceo Sr. [address] [place] [address] CHIEF COMPLAINT: Follow up CONGENITAL CARDIAC HISTORY: [...] Procedure Laterality Date HEART CATHETERIZATION 02/2016 at [facility] HEART SURGERY HX 07/29/2016 s/p [...] OF 55%. [place] [address], POOR FUNCTIONAL CAPACITY FOR AGE AND GENDER. [...] which included preparing to see the patient, [id number] patient care, completing clinical documentation, obtaining and/or reviewing separately obtained history, performing a medically appropriate examination, counseling and educating the patient/family/caregiver, ordering medications, tests, or procedures, communicating with other HCPs (not separately reported), independently interpreting results (not separately reported), and care coordination (not separately reported). Esme Hdz MD Adult Congenital Heart Disease [facility] [facility] Des[facility] J2-4 Appointments: [phone] documented in this encounter [facility] 10-20-2022 History of Presen t illness Narrative [...] 2022 10:13 AM documented in this encounter [facility] 07-04-2022 Miscellaneous Notes Spoke to patients mom aware of appointments and let her know reminder has been sent in the mail Erica Maldonado July 04, 2022 10:43 AM documented in this encounter [facility] 04-12-2021 Evaluation note Encounter Date Diagnosis Assessment Notes Mar, Injury of right hand, initial encounter (ICD-10 - S69.91XA) Mar, Fracture of middle phalanx of finger of right hand (ICD-10 - S62.562J) Use RICE therapy as discussed: Rest, Ice [...] today. 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 documented as of this encounter (statuses as of 07/04/2022) [facility] History of Past illness Narrative* Problem Noted Date Resolved Date Anxiety 07/30/2016 08/01/2016 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 Palpitations 05/11/2006 10/16/2008 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 documented as of this encounter (statuses as of 09/05/2022) [facility] History of Past illness Narrative* Problem Noted Date Resolved Date Anxiety 07/30/2016 08/01/2016 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 Palpitations 05/11/2006 10/16/2008 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 documented as of this encounter (statuses as of 10/20/2022) [facility] History of Past illness Narrative* Problem Noted Date Resolved Date Anxiety 07/30/2016 08/01/2016 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 Palpitations 05/11/2006 10/16/2008 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 documented as of this encounter (statuses as of 10/21/2022) [facility] History of Past illness Narrative* Problem Noted Date Resolved Date Anxiety 07/30/2016 08/01/2016 Congenital anomaly of heart 10/16/2008 02/11/2016 Palpitations 05/11/2006 10/16/2008 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 documented as of this encounter (statuses as of 10/25/2022) [facility] note* Diagnosis S/P tricuspid valve repair- Primary Other postprocedural status documented in this encounter [facility] note* 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 documented in this encounter [facility] note* Diagnosis Cardiomyopathy, unspecified type (HCC) documented in this encounter [facility] note* 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 documented in this encounter [facility] note* Diagnosis Dysplastic tricuspid valve Other specified congenital anomaly of heart Cardiomyopathy, unspecified type (HCC) documented in this encounter [facility] note* 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 tricuspid valve repair Other postprocedural status documented in this encounter [facility] note* 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 tricuspid valve repair Other postprocedural status Primary hypertension Unspecified essential hypertension Obesity, Class I, BMI 30-34.9 Obesity, unspecified documented in this encounter [facility] noteNo assessment information available[facility] Work Phone: [facility]* Diagnosis Onset Date Resolution Status Contusion of hand, right acu te [facility] Work Phone: evaluation note* 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 tricuspid valve repair Other postprocedural status Primary hypertension Unspecified essential hypertension documented in this encounter [facility] general Narrative - Reported* Type Description Date Medical History triscupid valve leaks Medical History htn Surgical History appendectomy Surgical History heart valve Hospitalization History see above surg [email or web address] Other Hospital Discharge instructions Additional Instructions Follow-up with your primary care doctor and the braille translator provided [facility] to ED if develop worsening [facility] Work Phone: InstructionsNot on filedocumented in this encounter [facility] Outpatient Procedure (Routine) - Pending Review Specialty Diagnoses / Procedures Referred By Ariela t Referred To Contact [facility] [place] Diagnoses S/P tricuspid valve repair Procedures ECHO ECHO TTHRC R-T 2D W/WOM-MODE COMPL SPEC&COLR Esme Hernandez MD [address] [place] [address] [facility] [address] [address] Referral ID Status Reason Start Date Expiration Date Visits Requested Visits Authorized [id number] Pending Review Auto-Generat ed Referral 05/30/2022 05/30/2023 1 1 * Outpatient Procedure (Routine) - Authorized Specialty Diagnoses / Procedures Referred By Ariela brown Referred To Contact [facility] [place] Diagnoses S/P tricuspid valve repair Procedures ECG COMPLETE ECG ROUTINE ECG W/LEAST 12 LDS W/I&R Esme Hdz MD [address] [place] [address] [address] Referral ID Status Reason Start Date Expiration Date Visits Requested Visits Authorized [id number] Authorized Auto-Generat ed Referral 05/30/2022 05/30/2023 [address] [facility] for referral (narrative)* Outpatient Procedure (Routine) - Pending Review Specialty Diagnoses / Procedures Referred By Ariela t Referred To Contact [facility] [place] Diagnoses Dysplastic tricuspid valve Procedures ECHO ECHO TTHRC R-T 2D W/WOM-MODE COMPL SPEC&COLR Esme Hernandez MD [address] [place] [address] [address] Referral ID Status Reason Start Date Expiration Date Visits Requested Visits Authorized [id number] Pending Review Auto-Generat ed Referral 09/05/2022 09/05/2023 [address] [facility] for referral (narrative)* Outpatient Procedure (Routine) - Pending Review Specialty Diagnoses / Procedures Referred By Contac t Referred To Contact [facility] [place] Diagnoses Dysplastic tricuspid valve Procedures ECG COMPLETE ECG ROUTINE ECG W/LEAST 12 LDS W/I&R Esme Hdz MD [address] [place] [address] [address] [address] [address] Referral ID Status Reason Start Date Expiration Date Visits Requested Visits Authorized [id number] Pending Review Auto-Generat ed Referral 10/24/2022 10/24/2023 1 1 * Outpatient Procedure (Routine) - Pending Review Specialty Diagnoses / Procedures Referred By Contac t Referred To Contact [facility] Diagnoses Dysplastic tricuspid valve Procedures ECHO SPECIALIST COMPLEX ADULT CONGENITAL ECHO TTHRC R-T 2D W/WOM-MODE COMPL SPEC&COLR D Esme Hdz MD [address] [place] [address] [address] Referral ID Status Reason Start Date Expiration Date Visits Requested Visits Authorized [id number] Pending Review Auto-Generat ed Referral 10/24/2022 10/24/2023 [address] [facility] for referral (narrative)* Outpatient Procedure (Routine) - Pending Review Specialty Diagnoses / Procedures Referred By Contac t Referred To Contact [facility] Diagnoses Dysplastic tricuspid valve Procedures ECHO SPECIALIST COMPLEX ADULT CONGENITAL ECHO TTHRC R-T 2D W/WOM-MODE COMPL SPEC&COLR Esme Hernandez MD [address] [place] [address] [address] Referral ID Status Reason Start Date Expiration Date Visits Requested Visits Authorized [id number] Pending Review Auto-Generat ed Referral 11/05/2023 11/04/2024 1 1 * Outpatient Procedure (Routine) - Pending Review Specialty Diagnoses / Procedures Referred By Contac t Referred To Contact [facility] [place] Diagnoses Dysplastic tricuspid valve Procedures ECG COMPLETE ECG ROUTINE ECG W/LEAST 12 LDS W/I&R Esme Hdz MD [address] [place] [address] [address] Referral ID Status Reason Start Date Expiration Date Visits Requested Visits Authorized [id number] Pending Review Auto-Generat ed Referral 11/05/2023 11/04/2024 1 1 * Transition of Care (Routine) - Ref Not Required Specialty Diagnoses / Procedures Referred By Contac t Referred To Contact [facility] Procedures CARDIOVASCULAR MEDICINE [place] [address] [place] [address] [address] [address] [address] Referral ID Status Reason Start Date Expiration Date Visits Requested Visits Authorized [id number] Ref Not Required PCP Requested Referral 08/06/2024 11/04/2024 1 1 * Outpatient Procedure (Routine) - Closed Specialty Diagnoses / Procedures Referred By Contac t Referred To Contact [facility] Diagnoses Dysplastic tricuspid valve Procedures ECHO SPECIALIST COMPLEX ADULT CONGENITAL ECHO TTHRC R-T 2D W/WOM-MODE COMPL SPEC&COLR D Esme Hdz MD [address] [place] [address] [address] Referral ID Status Reason Start Date Expiration Date V isits Requested Visits Authorized [id number] Closed Auto-Generate d Referral 11/01/2023 10/31/2024 [address] [facility] for visit Narrative* Transition of Care (Routine) - Closed Specialty Diagnoses / Procedures Referred By Ariela t Referred To Contact [facility] [place] Procedures CARDIOVASCULAR MEDICINE [place] [address] [place] [address] Phone: tel: fax: [address] [address] Referral ID Status Reason Start Date Expiration Date V isits Requested Visits Authorized [id number] Closed PCP Requested Referral 08/06/2024 11/04/2024 1 1 [facility] Summary Purpose Family History No Family History Records FoundNo Family History Records FoundNo Family History Records Found Advance Directives Advance Directive Response Recorded Date/ Time Advance Directives No April 17, 2021 2:01pm Advance Directive Response Recorded Date/ Time Advance Directives No April 17, 2021 1:01pm Reason for Referral Specialty Diagnoses / Procedures Referred By Ariela brown Referred To Contact [facility] Diagnoses Dysplastic tricuspid valve Procedures MRA CHEST CARDIOVASCULAR WO IVCON MRA CHEST WITH OR W/O CONT Esme Hdz MD [address] [place] [address] [facility] Referral ID Status Reason Start Date Expiration Date V isits Requested Visits Authorized [id number] Closed Auto-Generate d Referral 10/20/2022 11/19/2023 1 1 Specialty Diagnoses / Procedures Referred By Ariela brown Referred To Contact [facility] Diagnoses Cardiomyopathy, unspecified type (HCC) Procedures MRI CARDIAC MORPH FUNC WO IVCON CARDIAC MRI MORPHOLOGY & FUN[place] [address] [place] [address] [facility] Referral ID Status Reason Start Date Expiration Date V isits Requested Visits Authorized [id number] Closed Auto-Generate d Referral 10/20/2022 11/19/2023 1 1 Chief Complaint and Reason for Visit Chief Complaint Right hand pain with injury Chief Complaint Right hand pain with injury S59.911A Reason for Visit Contusion of hand, r ight Chief Complaint Admit Date cp going into left arm-high bp August 01, 2024 4:25pm Additional Source Comments REASON FOR VISIT (unrecogniz ed section and content) Reason Comments Appointment Specialty Diagnoses / Procedures Referred By Contac t Referred To Contact [facility] Diagnoses Dysplastic tricuspid valve Procedures MRI CARDIAC MORPH FUNC WO/W IVCON CARDIAC MRI W/WO CONTRAST & FURTHER SEQ Esme Hdz MD [address] [place] [address] Mr Imaging Referral ID Status Reason Start Date Expiration Date V isits Requested Visits Authorized [id number] Closed Auto-Generate d Referral 07/01/2022 07/31/2023 1 1 Reason Comments est clinical Reason Comments Patient Question Source Comments (unrecognize d section and content) In the event this informatio n is protected by the Federal Confidentiality of Alcohol and Drug Abuse Patient Records regulations: The Federal rules restrict any use of the information to criminally investigate or prosecute any alcohol or drug abuse patient.[facility] the event this information is protected by the Federal Confidentiality of Alcohol and Drug Abuse Patient Records regulations: The Federal rules restrict any use of the information to criminally investigate or prosecute any alcohol or drug abuse patient.[facility] the event this information is protected by the Federal Confidentiality of Alcohol and Drug Abuse Patient Records regulations: The Federal rules restrict any use of the information to criminally investigate or prosecute any alcohol or drug abuse patient.[facility] Hospital[facility] the event this information is protected by the Federal Confidentiality of Alcohol and Drug Abuse Patient Records regulations: The Federal rules restrict any use of the information to criminally investigate or prosecute any alcohol or drug abuse patient.[facility] the event this information is protected by the Federal Confidentiality of Alcohol and Drug Abuse Patient Records regulations: The Federal rules restrict any use of the information to criminally investigate or prosecute any alcohol or drug abuse patient.[facility] the event this information is protected by the Federal Confidentiality of Alcohol and Drug Abuse Patient Records regulations: The Federal rules restrict any use of the information to criminally investigate or prosecute any alcohol or drug abuse patient.[facility] HospitalIn the event this information is protected by the Federal Confidentiality of Alcohol and Drug Abuse Patient Records regulations: The Federal rules restrict any use of the information to criminally investigate or prosecute any alcohol or drug abuse patient.[facility] the event this information is protected by the Federal Confidentiality of Alcohol and Drug Abuse Patient Records regulations: The Federal rules restrict any use of the information to criminally investigate or prosecute any alcohol or drug abuse patient.[facility] the event this information is protected by the Federal Confidentiality of Alcohol and Drug Abuse Patient Records regulations: The Federal rules restrict any use of the information to criminally investigate or prosecute any alcohol or drug abuse patient.[facility] Hospital[facility] the event this information is protected by the Federal Confidentiality of Alcohol and Drug Abuse Patient Records regulations: The Federal rules restrict any use of the information to criminally investigate or prosecute any alcohol or drug abuse patient.[facility] Care Teams (unrecognized sec tion and content) Team Status: Active Member Role Status Dates PHYSICIAN NO FAMILY Primary Care Provider Active Team Status: Active Member Role Status Dates PHYSICIAN NO FAMILY Primary Care Provider Active Start: June 18, 2024 Colby Lerner DO Attending Provider Active Sta rt: June 18, 2024 Team Status: Inactive Member Role Status Dates PHYSICIAN NO FAMILY Primary Care Provider Active Start: August 01, 2024 End: August 01, 2024 Allen Cheung DO Emergency Provider Active Sta rt: August 01, 2024 End: August 01, 2024 Cyber Legal Advisor Relationship Specialty Start Date End Date Carlos Arceo [facility] [address] [place] [address] PCP - General Family Medicine 10/15/20 Esme Hdz MD [address] [place], [place] [id number] Primary Staff Physician Cardiology 08/18/21 Cyber Legal Advisor Relationship Specialty Start Date End Date Carlos Arceo [facility] [address] [place] [address] PCP - General Family Medicine 10/15/20 Esme Hdz MD [address] [place] [address] Primary Staff Physician Cardiology 08/18/21 Cyber Legal Advisor Relationship Specialty Start Date End Date Carlos Arceo [facility] [address] [place] [address] PCP - General Family Medicine 10/15/20 Esme Hdz MD [address] [place] [address] Primary Staff Physician Cardiology 08/18/21 Cyber Legal Advisor Relationship Specialty Start Date End Date Carlos Arceodonnie Maguire [address] [facility] [place] [address] PCP - General Family Medicine 10/15/20 Esme Hdz MD [address] [place] [address] Primary Staff Physician Cardiology 08/18/21 Cyber Legal Advisor Relationship Specialty Start Date End Date Carlos Arceodonnie Pickett. [address] [facility] [place] [address] PCP - General Family Medicine 10/15/20 Esme Hdz MD [address] [place] [address] Primary Staff Physician Cardiology 08/18/21 Cyber Legal Advisor Relationship Specialty Start Date End Date Sohail Carlos Jose Manuel Maguire [address] [facility] [place] [address] PCP - General Family Medicine 10/15/20 Esme Hdz MD [address] [place] [address] Primary Staff Physician Cardiology 08/18/21 Cyber Legal Advisor Relationship Specialty Start Date End Date Sohail Carlos Jose Manuel Maguire [address] [place] [address] PCP - General Family Medicine 10/15/20 Esme Hdz MD [address] [place] [address] Primary Staff Physician Cardiology 08/18/21 Cyber Legal Advisor Relationship Specialty Start Date End Date Carlos Arceo Sr., DO PCP - General Family Medicine 10/15/20 Esme Hdz MD [address] [place] [address] Primary Staff Physician Cardiology 08/18/21 Team Status: Inactive Member Role Status Dates [...] Provider Active S tart: December 29, 2023 Cyber Legal Advisor Relationship Specialty Start Date End Date Carlos Arceo Sr., DO PCP - General Family Medicine 10/15/20 Esme Hdz MD [address] [place] [address] Primary Staff Physician Cardiology 08/18/21 Cyber Legal Advisor Relationship Specialty Start Date End Date No Pcp, [place] [address] PCP - General Family Medicine 06/17/18 Cyber Legal Advisor Relationship Specialty Start Date End Date Carlos Arceo Sr., DO PCP - General Family Medicine 10/15/20 09/11/24 Esme Hdz MD [address] [place] [address] Primary Staff Physician Cardiology 08/18/21 (unrecognized sect ion and content) No Status Records FoundNo Status Records FoundNo Status Records Found INFORMATION SOURCE (unrecogn ized section and content) DATE CREATED AUTHOR 06/28/2022 [facility] DATE CREATED AUTHOR AUTHOR'S ORGANIZ ATION 08/14/2024 [facility] DATE CREATED AUTHOR AUTHOR'S SHERRI PADILLA 09/11/2024 [facility] Goals (unrecognized section and content) Goals may [...] BE BASED ON THE PRIMARY CLINICAL RECORDS. [facility] [employer] [facility]. provides no warranty or guarantee of the accuracy or completeness of information in this document.
--- NOTE | 2024-09-13 16:14 | ED_ITS ---
HPI HPI - General Adult General Chief complaint: Headache Stated complaint: HEADACHE, EYE PAIN Time Seen by Provider: 09/13/24 15:59 Source: patient Mode of arrival: walk-in History of Present Illness HPI narrative: Patient has come to the ER with a 1 week history of right-sided headache. Mentioned that it was associated with blurry vision for distant sight, the patient denies any nausea or vomiting. He mentioned that almost a week ago when this started he also had some upper respiratory tract infection symptoms that got better. The patient denies any difficulty walking or speaking or any other pathology Related Data Home Medications ?Medication ?Instructions ?Recorded ?Confirmed lisinopril 10 mg tablet 10 mg PO DAILY 01/12/23 06/17/24 omeprazole 20 mg capsule,delayed 20 mg PO DAILY 06/17/24 06/17/24 release Previous Rx's ?Medication ?Instructions ?Recorded diclofenac sodium 75 mg 75 mg PO BID PRN pain #14 tabs 09/13/24 tablet,delayed release orphenadrine citrate 100 mg 100 mg PO DAILY PRN muscle spasm 09/13/24 tablet,extended release #10 tabs Allergies Allergy/AdvReac Type Severity Reaction Status Date / Time diphenhydramine (From Allergy Severe Unknown Verified 06/17/24 20:30 Benadryl) Penicillins Allergy Severe Unknown Verified 06/17/24 20:30 Opioid HPI Opioid Management Most Recent Opioid Data: Last Pain Scale 8 09/13/24 16:24 09/13/24 Last MAR Pain Assessment 09/13/24 16:24 Review of Systems ROS Status of ROS 10 or more systems reviewed and unremark able except as noted in history and below PFSH PFSH Social History Little interest or pleasure in doing things: not at all Feeling down, depressed, or hopeless: not at all Exam Narrative Exam Narrative: Nurses notes and vital signs reviewed and patient is not hypoxic. General: Well-appearing and in no apparent distress. Skin: Warm, dry, no pallor noted. No rash. Head: Normocephalic, atraumatic. Neck: Supple, right paraspinal muscle tenderness no intervertebral line tenderness. Eye: Pupils are equal, round and EOMI. No scleral icterus. Ears, Nose, Mouth, and Throat: TM are clear, no nasal mucosal hypertrophy. Oral mucosa is moist, no posterior oropharynx erythema, uvula is mid-line Cardiovascular: Regular Rate and Rhythm without murmur, gallop or rub. Respiratory: No accessory muscle use or respiratory distress. Lungs are clear to auscultation, no wheezing, rales or rhonchi Chest Wall: no tenderness Back: No midline thoracic or lumbar vertebral tenderness. No CVA tenderness Musculoskeletal: normal ROM, no calf or popliteal tenderness, no lower extremity edema/swelling GI: Abdomen is soft, non-distended. Normal bowel sounds. No masses appreciated. No tenderness to palpation. No rebound, guarding, or rigidity noted. Nurses notes and vital signs reviewed and patient is not hypoxic. Neurological: A&O x4. No cranial nerve dysfunction observed. No truncal ataxia. Moves all extremities. Sensation intact. Psychiatric: Cooperative and interactive. Normal mood and affect. Constitutional Vital Signs, click to edit/add: Last Vital Signs Temp 98.6 F 09/13/24 15:59 Pulse 105 H 09/13/24 15:59 Resp 20 09/13/24 15:59 BP 160/110 H 09/13/24 15:59 Pulse Ox 99 09/13/24 15:59 Course Vital Signs Vital signs: Vital Signs Temperature 98.6 F 09/13/24 15:59 Pulse Rate 105 H 09/13/24 15:59 Respiratory Rate 20 09/13/24 15:59 Blood Pressure 160/110 H 09/13/24 15:59 Pulse Oximetry 99 09/13/24 15:59 Temperature 98.6 F 09/13/24 15:59 Pulse Rate 105 H 09/13/24 15:59 Respiratory Rate 20 09/13/24 15:59 Blood Pressure 160/110 H 09/13/24 15:59 Pulse Oximetry 99 09/13/24 15:59 Medical Decision Making [facility] Narrative Medical decision making narrative: CT head showed no acute pathology The patient CBC showed no acute pathology and his presentation is mostly secondary to migraine Although the patient denies any photosensitivity his blurry vision comes and goes and is not consistent and is only on distant vision. Patient does have some anxiety regarding his symptoms The patient CT head showed no acute pathology and his blood workup showed no acute pathology as well He does have a right-sided neck pain with the CT of the cervical spine showed no acute pathology Patient was anxious and asking a lot of questions about what he googled online for his neck and head pain as he was worried about cancer because he was reading that online I did explain to the patient at the moment that he does not have any acute findings that correlate with this concern and his headache mostly secondary to migraine or tension headache Patient provided with Norflex as well as Voltaren Patient was feeling better after being treated with Toradol in the ER The patient is to follow up with primary care physician in next 2-3 days or to return to the emergency department should any of the signs or symptoms worsen or new symptoms develop. The patient agrees with the following Diagnosis and Treatment plan and the patient will be discharged home. Lab Data Labs: Lab Results 09/13/24 09/13/24 Range/Units 12:06 16:49 WBC 10.2 (4.0-11.0) 10^3/uL RBC 5.23 (4.70-6.10) 10^6/uL Hgb 16.1 (14.0-18.0) g/dL Hct 45.1 (42.0-54.0) % MCV 86.2 (80.0-94.0) fL MCH 30.8 (25.9-34.0) pg MCHC 35.7 H (29.9-35.2) g/dL RDW 11.6 (11.0-15.0) % Plt Count 311 (150-450) 10^3/uL MPV 10.9 (9.5-13.5) fL Neut % (Auto) 58.3 (43.0-75.0) % Lymph % (Auto) 33.4 (20.5-60.0) % [place] % (Auto) 4.3 (1.7-12.0) % Eos % (Auto) 2.8 (0.9-7.0) % Baso % (Auto) 1.0 (0.2-2.0) % Neut # (Auto) 6.0 (1.4-6.5) 10^3/uL Lymph # (Auto) 3.4 (1.2-3.8) 10^3/uL [place] # (Auto) 0.4 (0.3-0.8) 10^3/uL Eos # (Auto) 0.3 (0.0-0.7) 10^3/uL Baso # (Auto) 0.1 (0.0-0.1) 10^3/uL Abs Immat Gran (auto) 0.02 (0.00-0.03) 10^3/uL Imm/Tot Granulo (auto) 0.2 (0.0-0.5) % Sodium 137 (136-145) mmol/L Potassium 3.9 (3.5-5.1) mmol/L Chloride 103 (98-107) mmol/L Carbon Dioxide 28.9 (21.0-32.0) mmol/L Anion Gap 9.0 BUN 16.0 (7.0-18.0) mg/dL Creatinine 1.10 (0.70-1.30) mg/dL Est GFR ( Amer) >60 (>=60 mL/min/1.73m^2) Est GFR (Non-Af Amer) >60 (>=60 mL/min/1.73m^2) BUN/Creatinine Ratio 14.5 Glucose 82 (74-106) mg/dL Calcium 9.2 (8.5-10.1) mg/dL Total Bilirubin 0.5 (0.2-1.0) mg/dL AST 14 L (15-37) U/L ALT 24 (16-63) U/L Alkaline Phosphatase 91 (46-116) U/L Total Protein 7.7 (6.4-8.2) g/dL Albumin 4.4 (3.4-5.0) g/dL Globulin 3.3 g/dL Albumin/Globulin Ratio 1.3 Discharge Plan Discharge Chief Complaint: Headache Clinical Impression: Headache, Neck sprain Patient Disposition: Home, Self-Care Time of Disposition Decision: 17:30 Condition: Good Prescriptions / Home Meds: New diclofenac sodium 75 mg tablet,delayed release (DR/EC) 75 mg PO BID PRN (Reason: pain) Qty: 14 0RF orphenadrine citrate 100 mg tablet extended release 100 mg PO DAILY PRN (Reason: muscle spasm) Qty: 10 0RF Discontinued ketorolac 10 mg tablet 10 mg PO TID PRN (Reason: pain) Qty: 10 0RF methocarbamol 750 mg tablet 750 mg PO TID PRN (Reason: pain) Qty: 20 0RF No Action lisinopril 10 mg tablet 10 mg PO DAILY omeprazole 20 mg capsule,delayed release(DR/EC) 20 mg PO DAILY Print Language: Venezuelan Instructions: Tension Headache (ED) Referrals: Physician,Non-Staff, MD [Primary Care Provider] - 1 week
[2024-09-13] MEDS: KETOROLAC TROMETHAMINE 30 MG/ML VIAL 15 MG IVP (16:24)
[2024-09-13] MEDS: PROMETHAZINE HCL 25 MG in 0.9 % SODIUM CHLORIDE 50 ML 204 MG IV (16:25)
[2024-09-13 16:26] LABS: Basophils Absolute Auto 0.1 10^3/uL (0.0-0.1); Eosinophils Absolute Auto 0.3 10^3/uL (0.0-0.7); Eosinophils Percent Auto 2.8 % (0.9-7.0); Hematocrit 45.1 % (42.0-54.0); Hemoglobin 16.1 g/dL (14.0-18.0); Immature Granulocytes Abs Auto 0.02 10^3/uL (0.00-0.03); Immature Granulocytes Pct Auto 0.2 % (0.0-0.5); Lymphocytes Absolute Auto 3.4 10^3/uL (1.2-3.8); Lymphocytes Percent Auto 33.4 % (20.5-60.0); Mean Corpuscular HGB Conc 35.7 g/dL (29.9-35.2); Mean Corpuscular Hemoglobin 30.8 pg (25.9-34.0); Mean Corpuscular Volume 86.2 fL (80.0-94.0); Mean Platelet Volume 10.9 fL (9.5-13.5); Monocytes Absolute Auto 0.4 10^3/uL (0.3-0.8); Monocytes Percent Auto 4.3 % (1.7-12.0); Neutrophils Percent Auto 58.3 % (43.0-75.0); Platelet Count 311 10^3/uL (150-450); Red Blood Count 5.23 10^6/uL (4.70-6.10); Red Cell Distribution Width 11.6 % (11.0-15.0); White Blood Count 10.2 10^3/uL (4.0-11.0)
[2024-09-13 17:14] LABS: Alanine Aminotransferase 24 U/L (16-63); Albumin Globulin Ratio 1.3; Albumin Level 4.4 g/dL (3.4-5.0); Alkaline Phosphatase 91 U/L (46-116); Aspartate Amino Transferase 14 U/L (15-37); BUN Creatinine Ratio 14.5; Bilirubin Total 0.5 mg/dL (0.2-1.0); Calcium 9.2 mg/dL (8.5-10.1); Carbon Dioxide 28.9 mmol/L (21.0-32.0); Chloride 103 mmol/L (98-107); Estimated GFR (African America >60 (>=60 mL/min/1.73m^2); Estimated GFR (Non-African Ame >60 (>=60 mL/min/1.73m^2); Globulin 3.3 g/dL; Glucose 82 mg/dL (74-106); Potassium 3.9 mmol/L (3.5-5.1); Sodium 137 mmol/L (136-145); Total Protein 7.7 g/dL (6.4-8.2)
[2024-09-13 17:35] VITALS: BP 118/73; PULSE 84; O2SAT 98
== END 2024-09-13 17:51 | disposition home or self-care (01) ==
PROVIDERS: Emergency Provider Emergency Medicine
DX: R51.9 Headache, unspecified (principal); S13.9XXA Sprain of joints and ligaments of unspecified parts of neck, initial encounter; X58.XXXA Exposure to other specified factors, initial encounter
CPT/HCPCS: 36415; 70450; 72125; 80053; 85025; 96365; 96375; 99284; J1885; J2550

== ENCOUNTER 2025-02-05 16:37 | Outpatient (OUT) | payer OTHER, SELFPAY ==
--- OUTSIDE RECORDS SUMMARY | 2013-09-19 09:00 | XMS_ITS | Continuity of Care Document ---
Author Organization [facility] Address [address] [place] [address] Phone Care Team Providers Care Programming Intern Name Role Phone Garrett LEIVA , September Unavailable Unavailable Allergies, Adverse Reactions, Alerts Substance Reaction Status Criticality penicillin G Active No Information Medications Medication Instructions Dosage Effective Dates (start - stop) Status Comments [place] 5 mg-325 mg tablet take 1 tablet [...] Diagnoses Date Provider Providers Copied on Encounter [facility], [address] [place] [address], [id number], [place] tel:[phone] Dental Clinic Dental examination Garrett DMD September. [address] [place], [place], [id number], [place]. tel:[phone] [facility], [address] [place] [address], [id number], tel:[phone] Dental Clinic Dental examination Garrett DMD Briseida. [address] [place], [place], [id number], [place]. tel:[phone] [facility], [address] [place] [address], [id number], [place] tel:[phone] Dental Clinic Dental examination Garrett DMD September. [address] [place], [place], [id number], [place]. tel:[phone] Family History Family Member Type Diagnosis Age [...]
--- OUTSIDE RECORDS SUMMARY | 2025-01-30 23:59 | XMS_ITS | Continuity of Care Document ---
Author Organization [facility] Address [address] [place] [address] Support Name Relationship Address Phone LAURA TORRE father Unknown Unavailab le Encounter [id number] Date(s): 01/30/25 - 01/30/25 [facility] [address] [place] [address]- Encounter Diagnosis Left testicular pain(Discharge Diagnosis) - 01/30/25 Discharge Disposition: Home (Routine DC) Attending Physician: Lavon WALDROP MD Encounter Type: Clinic Allergies, Adverse Reactions, Alerts Substance Criticality Severity Reaction Reaction Severity Status penicillin High criticality Moderate Ac tive Benadryl High criticality Moderate Act mik Immunizations Given and Recorded Vaccine Date Status Refusal Reason influenza virus vaccine, inactivated 06/04/03 Rios rded measles/mumps/rubella virus vaccine 02/14/03 Recor ded measles/mumps/rubella virus vaccine 04/10/92 Recor ded hepatitis B pediatric vaccine 02/14/03 Recorded poliovirus vaccine, inactivated 02/22/93 Recorded poliovirus vaccine, inactivated 90 Recorded poliovirus vaccine, inactivated 90 Recorded Hib, unspecified formulation 02/22/93 Recorded Hib, unspecified formulation 90 Recorded DTaP, unspecified formulation 02/22/93 Recorded Medications lisinopril 10 mg Tab 10 mg = 1 tab(s), Refills(s) 0 Start Date: 01/30/25 Status: Ordered Repeat number: 1 Problem List Condition Confirmation Course Effective Dates Status Health St [facility] Informant Heart valve disorder Confirmed Active Hypertension Confirmed Active Left testicular pain Confirmed Active Procedures Procedure Date Related Diagnosis Body Site Status Appendectomy Completed Heart valve repair Comple pelon Open heart surgery Comple pelon Social History Social History Type Response Tobacco vape Tobacco Use:. C urrent vaping or e-cigarette use Smokeless Tobacco Use:. Vaping Sex Male Sex Representation Male (finding) Hospital Discharge Instructions Patient Education 01/30/2025 16:14:44 How to Take a Sitz Bath How to Take a Sitz Bath A sitz bath is a warm water bath that may be used to care for your rectum, genital area, or the area between your rectum and genitals (perineum). In a sitz bath, the water only comes up to your hips and covers your buttocks. A sitz bath may be done in a bathtub or with a portable sitz bath that fits over the toilet. Your health care provider may recommend a sitz bath to help: ??? Relieve pain and discomfort after delivering a baby. ??? Relieve pain and itching from hemorrhoids or anal fissures. ??? Relieve pain after certain surgeries. ??? Relax muscles that are sore or tight. How to take a sitz bath Take 2???4 sitz baths a day, or as many as told by your health care provider. Bathtub sitz bath To take a sitz bath in a bathtub: 1. Partially fill a bathtub with warm water. The water should be deep enough to cover your hips andbuttocks when you are sitting in the bathtub. 2. Follow your health care provider's instructions if you are told to put medicine in the water. 3. Sit in the water. Open the bathtub drain a little, and leave it open during your bath. 4. Turn on the warm water again, enough to replace the water that is draining out. Keep the water running throughout your bath. This helps keep the water at the right level and temperature. 5. Soak in the water for 15???20 minutes, or as long as told by your health care provider. 6. When you are done, be careful when you stand up. You may feel dizzy. 7. After the sitz bath, pat yourself dry. Do not rub your skin to dry it. Xtyi-siy-uvfuwo sitz bath To take a sitz bath with an nkzs-ski-eweaad basin: 1. Follow the professor of psychology's instructions. 2. Fill the basin with warm water. 3. Follow your health care provider's instructions if you were told to put medicine in the water. 4. Sit on the seat. Make sure the water covers your buttocks and perineum. 5. Soak in the water for 15???20 minutes, or as long as told by your health care provider. 6. After the sitz bath, pat yourself dry. Do not rub your skin to dry it. 7. Clean and dry the basin between uses. 8. Discard the basin if it cracks, or according to the professor of psychology's instructions. Contact a health care provider if: ??? Your pain or itching gets worse. Stop doing sitz baths if your symptoms get worse. ??? You have new symptoms. Stop doing sitz baths until you talk with your health care provider. Summary ??? A sitz bath is a warm water bath in which the water only comes up to your hips and covers your buttocks. ??? Your health care provider may recommend a sitz bath to help relieve pain and discomfort after delivering a baby, relieve pain and itching from hemorrhoids or anal fissures, relieve pain after certain surgeries, or help to relax muscles that are sore or tight. ??? Take 2???4 sitz baths a day, or as many as told by your health care provider. Soak in the waterfor 15???20 minutes. ??? Stop doing sitz baths if your symptoms get worse. This information is not intended to replace advice given to you by your health care provider. Make sure you discuss any questions you have with your health care provider. Document Revised: 09/13/2022 Document Reviewed: 09/13/2022 [employer] Patient Education ?? 2023 [employer]. 01/30/2025 16:14:42 Testicular Self-Exam Testicular Self-Exam A self-examination of your testicles (testicular self-exam) involves looking at and feeling your testicles for abnormal lumps or swelling. Several things can cause swelling, lumps, or pain in your testicles, including: ??? Injuries. ??? Inflammation. ??? Infection. ??? Buildup of fluids around the testicle (hydrocele). ??? Twisted testicles (testicular torsion). ??? Testicular cancer. You may be at risk for this if you have: ??? A testicle that has not descended. ??? Previously had testicular cancer. ??? A family history of testicular cancer. General tips ??? It is easiest to do a self-exam during or after a warm bath or shower. Testicles are harder to examine when you are cold because the muscles attached to the testicles retract and pull them up higher or into the abdomen. ??? A normal testicle is egg-shaped and feels firm. It is smooth and not tender. ??? It is normal to feel a firm, spaghetti-like cord at the back of your testicle. This is the spermatic cord. ??? Do a self-exam once a month. How to do a testicular self-exam 1. Stand and hold your penis away from your body. 2. Look at each testicle to check for changes in appearance, such as swelling or changes in size orshape. 3. Roll each testicle between your thumb and forefinger, feeling the entire testicle. Feel for: ??? Lumps. ??? Swelling. ??? Discomfort. 4. Check for swelling or tender bumps in the groin area. Your groin is where your lower belly (abdomen) meets your upper thighs. Contact a health care provider if: ??? You find a bump or lump. This may be a small, hard bump that is the size of a pea. ??? You have swelling, pain, or soreness in your testicle area. ??? You see or feel any other changes in your testicles. This information is not intended to replace advice given to you by your health care provider. Make sure you discuss any questions you have with your health care provider. Document Revised: 03/27/2023 Document Reviewed: 03/27/2023 [employer] Patient Education ?? 2023 [employer]. Follow Up Care 01/09/2025 11:34:38 With:PALMA ALCANTARA, Lavon Alcala, URL Address: [facility] [address] , [place] [address]- When: Unknown Patient Care team information Care Team Related Persons Name: TORRELAURA PATEL Insurance Providers Guarantor name: ALLIE TORRE Health Plan Information #: 1 Payer: NA Payer Identifier: [id number] Member Number: [id number] Group Number: [id number] Subscriber Identifier: [id number] Relationship to Subscriber: Self Coverage Type: PRIVATE HEALTH INSURANCE Coverage Verification Date: 25 Telecom: [employer] Address: NA
--- OUTSIDE RECORDS SUMMARY | 2025-02-05 16:40 | XMS_ITS | Clinical Summary ---
Author Organization [facility] Healthcare Address [address] [place] [address] Care Team Providers Care Instructional Resource Teacher Name Role Phone Unavailable Primary Care Provider Unavailabl e Social History Tobacco Use Types Packs/Day Years Used Date Smoking Tobacco: Never Assessed Sex and Gender Information Value Date Recorded Sex Assigned at Not on file Legal Sex Male 7:10 PM EDT Gender Identity Not on file Sexual Orientation Not on file Last Filed Vital Signs Vital Sign Reading Time Taken Comments Blood Pressure 126/72 09/18/2017 12:00 PM EDT Pulse - - Temperature - - Respiratory Rate - - Oxygen Saturation - - Inhaled Oxygen Concentration - - Weight 98.9 kg (218 lb) 04/14/2021 12:00 PM EDT Height 188 cm (6' 2 ) 04/14/2021 12:00 PM EDT Body Mass Index 27.99 04/14/2021 12:00 PM EDT Plan of Treatment Not on file Insurance BS
--- OUTSIDE RECORDS SUMMARY | 2025-02-05 16:40 | XMS_ITS | Encounter Summary ---
Author Organization [facility] Address [facility] [place] [address] Care Team Providers Care Lottery Sales Clerk Name Role Phone House Sr., Carlos VALENZUELA Primary Care Provider + Carmen Hdz MD Unavailable Source Comments In the event this information is protected by the Federal Confidentiality of Alcohol and Drug AbusePatient Records regulations: The Federal rules restrict any use of the information to criminally investigate or prosecute any alcohol or drug abuse patient.[facility] Encounter Details Date Type Department Care Team (Late st Contact Info) Description 02/16/2022 Patient Msg Cardiology [address] [id number] Carmen Hdz MD [address] [place] [address] Request an Appointment Social History Tobacco Use Types Packs/Day Years Used Date Smoking Tobacco: Every Day Cigarettes 0.5 13.7 Started: 05/09/2011 Smokeless Tobacco: Never Alcohol Use Standard Drinks/Week Comments Not Currently 0 (1 standard drink = 0.6 oz pur e alcohol) Quit 07/2020 AUDIT-C Answer Date Recorded Q1: How often do you have a drink containing alcohol? 4 or more times a week 05/07/2020 Q2: How many drinks containi ng alcohol do you have on a typical day when you are drinking? 3 or 4 0 Q3: How often do you have si x or more drinks on one occasion? Weekly 05/07/2020 Area Deprivation Index Answer Date Rios rded National Score (1-100), lower number is lower ri sk Not on file 05/31/2020 State Score (1-10), lower number is lower risk N ot on file 05/31/2020 Data from: https://www.neighborhoodatlas.[facility]/. Last address used for calculation Not on file 05/31/2020 Sex and Gender Information Value Date Recorded Sex Assigned at Not on file Legal Sex Male 7:18 AM EST Gender Identity Not on file Sexual Orientation Not on file documented as of this encounter Functional Status * Are you deaf or do you have serious difficulty hearing? Answer Date of Assessment Author No 08/02/2016 1:52 PM Celestino Thapa APRN.CHARGE MASTER SPECIALIST * Are you blind or do you have serious difficulty seeing, even when wearing glasses? Answer Date of Assessment Author No 08/02/2016 1:52 PM Celestino Thapa APRN.CHARGE MASTER SPECIALIST * Do you have serious difficulty walking or climbing stairs? Answer Date of Assessment Author No 08/02/2016 1:52 PM Celestino Thapa APRN.CHARGE MASTER SPECIALIST * Do you have difficulty dressing or bathing? Answer Date of Assessment Author No 08/02/2016 1:52 PM Celestino Thapa APRN.CHARGE MASTER SPECIALIST * Because of a physical, mental, or emotional condition, do you have difficulty doing errands alone such as visiting a doctor's office or shopping? Answer Date of Assessment Author No 08/02/2016 1:52 PM Celestino Thapa APRN.CHARGE MASTER SPECIALIST documented as of this encounter Mental Status * Because of a physical, mental, or emotional condition, do you have serious difficulty concentrating, remembering, or making decisions? Answer Entry Date Author No 08/02/2016 1:52 PM Celestino Thapa APRN.CHARGE MASTER SPECIALIST documented in this encounter Plan of Treatment Not on file documented as of this encounter Visit Diagnoses Not on filedocumented in this encounter Care Teams Lottery Sales Clerk Relationship Specialty Start Date End Date Carlos Sauceda Sr., DO PCP - General Family Medicine 10/15/20 09/11/24 Carmen Hdz MD [address] [place] [address] Primary Staff Physician Cardiology 08/18/21 documented as of this encounter
--- OUTSIDE RECORDS SUMMARY | 2025-02-05 16:40 | XMS_ITS | Encounter Summary ---
Author Organization [facility] Address [address] [place] [address] Care Team Providers Care Pluck Separator Name Role Phone House Sr., Carlos VALENZUELA Primary Care Provider + Carmen Hdz MD Unavailable [phone] Source Comments In the event this information is protected by the Federal Confidentiality of Alcohol and Drug AbusePatient Records regulations: The Federal rules restrict any use of the information to criminally investigate or prosecute any alcohol or drug abuse patient.[facility] Encounter Details Date Type Department Care Team (Late st Contact Info) Description 10/18/2022 [place] [address] Provider, [facility] MRI Screening Questionnaire Completion Required Social History Tobacco Use Types Packs/Day Years Used Date Smoking Tobacco: Every Day Cigarettes 0.3 13.7 Started: 05/09/2011 Smokeless Tobacco: Never Alcohol Use Standard Drinks/Week Comments Yes 0 (1 standard drink = 0.6 oz pur e alcohol) Social AUDIT-C Answer Date Recorded Q1: How often [...] (1-100), lower number is lower ri sk 62 07/17/2022 State Score (1-10), lower number is lower risk N ot on file 07/17/2022 Data from: https://www.neighborhoodatlas.medicine.[facility]/. Last address used for calculation [address] 07/17/2022 Sex and Gender Information Value Date Recorded Sex Assigned at Not on file Legal Sex Male 7:18 AM EST Gender Identity Not on file Sexual Orientation Not on file documented as of this encounter Functional Status * Are you deaf or do you have serious difficulty hearing? Answer Date of Assessment Author No 08/02/2016 1:52 PM EST Celestino Copeland APRN.BULK FOLDER * Are you blind or do you have serious difficulty seeing, even when wearing glasses? Answer Date of Assessment Author No 08/02/2016 1:52 PM Celestino Thapa APRN.BULK FOLDER * Do you have serious difficulty walking or climbing stairs? Answer Date of Assessment Author No 08/02/2016 1:52 PM Celestino Thapa APRN.BULK FOLDER * Do you have difficulty dressing or bathing? Answer Date of Assessment Author No 08/02/2016 1:52 PM Celestino Thapa APRN.BULK FOLDER * Because of a physical, mental, or emotional condition, do you have difficulty doing errands alone such as visiting a doctor's office or shopping? Answer Date of Assessment Author No 08/02/2016 1:52 PM EST Celestino Copeland APRN.BULK FOLDER documented as of this encounter Mental Status * Because of a physical, mental, or emotional condition, do you have serious difficulty concentrating, remembering, or making decisions? Answer Entry Date Author No 08/02/2016 1:52 PM Celestino Thapa APRN.BULK FOLDER documented in this encounter Plan of Treatment Not on file documented as of this encounter Visit Diagnoses Not on filedocumented in this encounter Care Teams Pluck Separator Relationship Specialty Start Date End Date Carlos Sauceda Sr., DO PCP - General Family Medicine 10/15/20 09/11/24 Carmen Hdz MD [address] [place] [phone] Primary Staff Physician Cardiology 08/18/21 documented as of this encounter
--- OUTSIDE RECORDS SUMMARY | 2025-02-05 16:40 | XMS_ITS | Encounter Summary ---
Author Organization [facility] Address [address] [place] [address] Care Team Providers Care Winder Operator Name Role Phone House Sr., Carlos VALENZUELA Primary Care Provider + House Sr., Carlos VALENZUELA Primary Care Provider + Carmen Hdz MD Unavailable [phone] Source Comments In the event this information is protected by the Federal Confidentiality of Alcohol and Drug AbusePatient Records regulations: The Federal rules restrict any use of the information to criminally investigate or prosecute any alcohol or drug abuse patient.[facility] Encounter Details Date Type Department Care Team (Late st Contact Info) Description 11/04/2016 Patient Msg Cardiology [address] [place] [address] Zo Izquierdo APRN.DESTINATION SIGN REPAIRER [address] [place] [address] Follow-up to your last appt Social History Tobacco Use Types Packs/Day Years Used Date Smoking Tobacco: Every Day Cigarettes 0.5 13.7 Started: 05/09/2011 Smokeless Tobacco: Never Alcohol Use Standard Drinks/Week Comments Yes 0 (1 standard drink = 0.6 oz pur e alcohol) occasionally Sex and Gender Information Value Date Recorded Sex Assigned at Not on file Legal Sex Male 7:18 AM EST Gender Identity Not on file Sexual Orientation Not on file documented as of this encounter Functional Status * Are you deaf or do you have serious difficulty hearing? Answer Date of Assessment Author No 08/02/2016 1:52 PM Celestino Thapa, PLACING JUDGE.DESTINATION SIGN REPAIRER * Are you blind or do you have serious difficulty seeing, even when wearing glasses? Answer Date of Assessment Author No 08/02/2016 1:52 PM Celestino Thapa, PLACING JUDGE.DESTINATION SIGN REPAIRER * Do you have serious difficulty walking or climbing stairs? Answer Date of Assessment Author No 08/02/2016 1:52 PM Celestino Thapa APRN.DESTINATION SIGN REPAIRER * Do you have difficulty dressing or bathing? Answer Date of Assessment Author No 08/02/2016 1:52 PM Celestino Thapa, PLACING JUDGE.DESTINATION SIGN REPAIRER * Because of a physical, mental, or emotional condition, do you have difficulty doing errands alone such as visiting a doctor's office or shopping? Answer Date of Assessment Author No 08/02/2016 1:52 PM Celestino Thapa APRN.DESTINATION SIGN REPAIRER documented as of this encounter Mental Status * Because of a physical, mental, or emotional condition, do you have serious difficulty concentrating, remembering, or making decisions? Answer Entry Date Author No 08/02/2016 1:52 PM Celestino Thapa, PLACING JUDGE.DESTINATION SIGN REPAIRER documented in this encounter Plan of Treatment Not on file documented as of this encounter Visit Diagnoses Not on filedocumented in this encounter Care Teams Winder Operator Relationship Specialty Start Date End Date Carlos Sauceda Sr., PCP - General Family Medicine 04/07/16 06/26/18 Carlos Sauceda Sr., PCP - General Family Medicine 10/15/20 09/11/24 Carmen Hdz MD [address] [place] [address] Primary Staff Physician Cardiology 08/18/21 documented as of this encounter
--- OUTSIDE RECORDS SUMMARY | 2025-02-05 16:40 | XMS_ITS | Clinical Summary ---
Author Organization [facility] Address [address] [place] [address] Care Team Providers Care Miller Head Assistant Wet Process Name Role Phone Phys, Self-Refer Or No Pcp/Referring Primary Car e Provider Unavailable Social History Tobacco Use Types Packs/Day Years Used Date Smoking Tobacco: Never Assessed Sex and Gender Information Value Date Recorded Sex Assigned at Not on file Legal Sex Male 9:22 AM EDT Gender Identity Not on file Sexual Orientation Not on file Plan of Treatment Health Maintenance Due Date Last Done Comments Hepatitis C Screening 1990 DTaP,Tdap,and Td Vaccines (1 - Tdap) 2009 Hepatitis B Vaccine ages 19 years and older (1 of 3 - 19+ 3-dose series) 2009 COVID-19 Vaccine (2023-2 5 season) 2024 Influenza Vaccine (#1) 2025 Respiratory Syncytial Virus (RSV) or ages 60 years and older (1 - 1-dose 75+ series) 2065 Pneumococcal Combined Aged Out No arnoldo marychuy eligible based on patient's age to complete this topic Respiratory Syncytial Virus (RSV) ages 0 thru 19 months Aged Out No longer eligible based on patient's age to complete this topic Care Teams Miller Head Assistant Wet Process Relationship Specialty Start Date End Date Phys, Self-Refer Or No Pcp/Referring PCP - General 04/12/16
--- OUTSIDE RECORDS SUMMARY | 2025-02-05 16:40 | XMS_ITS | Clinical Summary ---
Author Organization Private Practice tem Address [id number] [address] [place] [address] Care Team Providers Care Sand Hauler Name Role Phone No Pcp, No Pcp Primary Care Provider Unavailabl e Allergies Active Allergy Reactions Criticality Noted Date Comments Diphenhydramine Hcl 06/16/2018 Penicillins 06/16/2018 Medications aspirin 81 mg chewable tablet Chew 81 mg and swallow daily. Active traMADol (ULTRAM) 50 mg tablet Take 50 mg by mouth every 6 (six) hours as needed for pain. Active Family History Medical History Relation Name Comments No Known Problems Father No Known Problems Mother Relation Name Status Comments Father Mother Social History Tobacco Use Types Packs/Day Years Used Date Smoking Tobacco: Every Day Cigarettes Smokeless Tobacco: Never Alcohol Use Standard Drinks/Week Comments Yes 2 (1 standard drink = 0.6 oz pur e alcohol) 3 times a week Childcare Answer Date Recorded Childcare Unknown 12/06/2018 Employment Answer Date Recorded Employment Unknown 12/06/2018 Purpose - Life Answer Date Recorded Purpose and direction in life Unknown Sex and Gender Information Value Date Recorded Sex Assigned at Not on file Legal Sex Male 11:45 PM EST Gender Identity Not on file Sexual Orientation Not on file Last Filed Vital Signs Vital Sign Reading Time Taken Comments Blood Pressure 121/82 12/13/2018 6:00 PM EDT Pulse 69 12/13/2018 4:23 PM EDT Temperature 36.7 C (98.1 F) 12/13/2018 3:56 PM EDT Respiratory Rate 16 12/13/2018 4:23 PM EDT Oxygen Saturation 97% 12/13/2018 6:00 PM EDT Inhaled Oxygen Concentration - - Weight 99.8 kg (220 lb) 12/13/2018 3:56 PM EDT Height 188 cm (6' 2 ) 12/13/2018 3:56 PM EDT Body Mass Index 28.25 12/13/2018 3:56 PM EDT Plan of Treatment Health Maintenance Due Date Last Done Comments Depression Screening 2002 Tobacco Screening 2002 Adult BMI Screening 2008 DTaP,Tdap and Td Vaccines (1 - Tdap) 2009 Influenza Vaccine 02/24/2025 Medical Devices Not on file Care Teams Sand Hauler Relationship Specialty Start Date End Date No Pcp, [place] [address] PCP - General Family Medicine 06/17/18
--- OUTSIDE RECORDS SUMMARY | 2025-02-05 16:40 | XMS_ITS | Encounter Summary ---
Author Organization [facility] Address [address] [place] [id number] Care Team Providers Care Watershed Coordinator Name Role Phone House Sr., Carlos VALENZUELA Primary Care Provider + Carmen Hdz MD Unavailable [phone] Source Comments In the event this information is protected by the Federal Confidentiality of Alcohol and Drug AbusePatient Records regulations: The Federal rules restrict any use of the information to criminally investigate or prosecute any alcohol or drug abuse patient.[facility] Encounter Details Date Type Department Care Team (Late st Contact Info) Description 03/03/2022 Patient Msg Cardiology [address] [place], [place] [id number] Provider, [facility] Appt Request Social History Tobacco Use Types Packs/Day Years [...] N ot on file 05/31/2020 Data from: [email or web address] Last address used for calculation Not on [...] Author No 08/02/2016 1:52 PM Celestino Thapa APRN.RESTORATIVE ART EMBALMER * Are you blind or do you have serious difficulty seeing, even when wearing glasses? Answer Date of Assessment Author No 08/02/2016 1:52 PM Celestino Thapa APRN.RESTORATIVE ART EMBALMER * Do you have serious difficulty walking or climbing stairs? Answer Date of Assessment Author No 08/02/2016 1:52 PM Celestino Thapa APRN.RESTORATIVE ART EMBALMER * Do you have difficulty dressing or bathing? Answer Date of Assessment Author No 08/02/2016 1:52 PM Celestino Thapa APRN.RESTORATIVE ART EMBALMER * Because of a physical, mental, or emotional condition, do you have difficulty doing errands alone such as visiting a doctor's office or shopping? Answer Date of Assessment Author No 08/02/2016 1:52 PM Celestino Thapa APRN.RESTORATIVE ART EMBALMER documented as of this encounter Mental Status * Because of a physical, mental, or emotional condition, do you have serious difficulty concentrating, remembering, or making decisions? Answer Entry Date Author No 08/02/2016 1:52 PM Celestino Thapa APRN.RESTORATIVE ART EMBALMER documented in this encounter Plan of Treatment Not on file documented as of this encounter Visit Diagnoses Not on filedocumented in this encounter Care Teams Watershed Coordinator Relationship Specialty Start Date End Date Carlos Sauceda Sr., DO PCP - General Family Medicine 10/15/20 09/11/24 Carmen Hdz MD [address] [place] [id number] Primary Staff Physician Cardiology 08/18/21 documented as of this encounter
--- OUTSIDE RECORDS SUMMARY | 2025-02-05 16:44 | XMS_ITS | CCD ---
Author Organization [facility] CliniSyct Care Team Providers Care Law Researcher Name Role Phone Mirtha Montes Unavailable Adis Sr.Carlos Primary Care Provider Esme Hdz MD Unavailable HOUSE, DR FLOWERS Primary Care Unavailable DORIS, LISA Admitting Unavailable DORIS, LISA Attending Unavailable DORIS, LISA Consulting Unavailable JOSUE, BRENTON Consulting Unavailable ADIS, DR FLOWERS Admitting Unavailable HOUSE, DR FLOWERS [...] Primary Care Provider Esme Hdz MD Unavailable [phone] NO FAMILY, PHYSICIAN Primary Care Provider Unava ilable CHILO Ojeda Attending Provider NO FAMILY, PHYSICIAN Primary Care Provider Unava ilable Allen Cheung DO Emergency Provider Allen Cheung Admitting Unavailable Allen Cheung Attending Unavailable NO FAMILY, PHYSICIAN Primary Care Unavailable Teresa Ojeda Admitting Unavailable Teresa Ojeda Attending Unavailable NO FAMILY, PHYSICIAN Primary Care Unavailable No Pcp, No Pcp Primary Care Provider Unavailabl e House Sr., Carlos VALENZUELA Primary Care Provider ESME HDZ Referring Unavailable CARLOS ARCEO SR Primary Care Unavailable ESME HDZ Referring Unavailable CARLOS ARCEO SR Primary Care Unavailable FUCHS, ESME Attending Unavailable FUCHS, ESME Referring Unavailable HOUSE SR, CARLOS P Primary Care Unavailable FUCHS, ESME Referring Unavailable HOUSE SR, CARLOS P Primary Care Unavailable FUCHS, ESME Referring Unavailable HOUSE SR, CARLOS P Primary Care Unavailable FUCHS, ESME Referring Unavailable HOUSE SR, CARLOS P Primary Care Unavailable FUCHS, ESME Referring Unavailable HOUSE SR, CARLOS P Primary Care Unavailable FUCHS, ESME Attending Unavailable HOUSE SR, CARLOS P Primary Care Unavailable FUCHS, ESME Referring Unavailable HOUSE SR, CARLOS P Primary Care Unavailable NO FAMILY, PHYSICIAN Primary Care Provider Unava ilAllen Smalls DO Emergency Provider Lavon ENRIQUEZ Attending Unavailable Allergies Allergy Classification Reported Allergen(s) Allergy Type Date of Onset Reaction(s) Facility (5 sources) Penicillin G Drug Allergy 12-29-19 24 Unknown, Unknown Reaction [facility] (17 sources) diphenhydrAMINE; Translations: [DIPHENHYDRAMINE] Drug Allergy 01-12-20 19 Rash, Itching [facility] (12 sources) Penicillins; Translations: [PENICILLINS] Propensity to adverse reactions 09-11-19 05 [facility] (1 source) Penicillins Drug allergy (disorder) 12-17-19 13 [facility] (1 source) Sulfonamides (Antibiotic) Drug allergy (disorder) [facility] (1 source) diphenhydrAMINE Drug Allergy 12-29-19 [facility] (1 source) Penicillin Drug Allergy 12-29-19 [facility] (1 source) diphenhydrAMINE Drug Allergy 06-16-20 18 [facility] (1 source) Penicillins Propensity to adverse reactions 09-11-19 05 [facility] (2 sources) Penicillin; Translations: [penicillin] Drug Allergy [facility] (1 source) diphenhydrAMINE; Translations: [Benadryl] Drug Allergy [facility] Repository Medications Current Medications Medication Drug Class(es) Dates Sig (Normalized) Sig (Original) aspirin 81 mg chewable tablet (1 source) Platelet Aggregation Inhibitor, Nonsteroidal Anti-inflammatory Drug aspirin 81 mg chewable tablet Chew 81 mg and swallow daily. Active dicyclomine hydrochloride 20 mg oral tablet (2 sources) Anticholinergic Start: 08-01-2024 take 1 tablet by mouth three times daily Dicyclomine 20 mg tablet Active 20 MG PO Three times daily August 01, 2024 1:00am famotidine 20 mg oral tablet (10 sources) Histamine-2 Receptor Antagonist Start: 06-14-2022 take 1 tablet by mouth every twelve hours as needed famotidine (PEPCID) 20 mg tablet Take 20 mg by mouth twice daily as needed. 06/14/2022 Active Comment on above: Take 20 mg by mouth twice daily as needed. lisinopril 10 mg oral tablet (19 sources) Angiotensin Converting Enzyme Inhibitor Start: 01-30-2025 lisinopril 10 mg Tab 10 mg = 1 tab(s), Refills(s) 0 Start Date: 01/30/25 Status: Ordered Repeat number: 1 Start: 12-29-2023 Lisinopril Act mik MG PO December 29, 2023 12:00am Start: 10-06-2020 End: 10-10-2024 Lisinopril 10 mg tablet Acti ve MG PO December 29, 2023 12:00am Lisinopril Activ e Comment on above: Take 10 mg by mouth once daily. naproxen sodium 550 mg oral tablet (1 source) Nonsteroidal Anti-inflammatory Drug Start: 04-12-20 take 1 tablet by mouth every twelve hours at mealtime as needed Naproxen Sodium 550 MG 1 tablet with food or milk as needed Orally every 12 hrs for 7 days Mar, Active pantoprazole 40 mg delayed release oral tablet (2 sources) Proton Pump Inhibitor Start: 08-01-19 take 1 tablet by mouth once daily Pantoprazole (Protonix) 40 mg tablet,delayed release (DR/EC) Active 40 MG PO Daily August 01, 2024 1:00am predniSONE 20 mg oral tablet (1 source) Start: 10-30-19 take 1 tablet by mouth twice daily Prednisone 20 mg tablet Active 20 MG PO Twice daily 03 30October 29, 2024 12:00am sucralfate 1000 mg oral tablet (2 sources) Aluminum Complex Start: 08-01-19 take 1 tablet by mouth every six hours Sucralfate (Carafate) 1 gram tablet Active 1 GM PO Q6H 56 August 01, 2024 1:00am Completed/Discontinued Medications Medication Drug Class(es) Dates Sig [...] 04-15-2005 Resolved: 08-01-2016 08-02-2016 Chronic Essential hypertension (19 sources) Hypertensive disorder; Translations: [Essential (primary) hypertension] 10-15-2020 Chronic Nonspecific chest pain (19 sources) Chest pain; Translations: [Other chest pain] Onset: 05-07-2020 05-07-2020 Episodic Other injuries and conditions due to external causes (4 sources) Injury of forearm; Translations: [Unspecified injury of right forearm, initial encounter] 12-29-2023 Episodic Other male genital disorders (1 source) Pain in testicle; Translations: [Left testicular pain] Onset: 01-30-2025 Episodic Other male genital disorders (1 source) Pain of left testicle 01-30-2025 Episodic Other nutritional; endocrine; and metabolic disorders (5 sources) Obese class I; Translations: [Obesity, unspecified] Onset: 11-05-2023 11-05-2023 Chronic Jeanie-; endo-; and myocarditis; cardiomyopathy (except that caused by tuberculosis or sexually transmitted disease) (3 sources) Cardiomyopathy; Translations: [Cardiomyopathy, unspecified] Chronic Substance-related disorders (1 source) Nicotine dependence, cigarettes, uncomplicated; Translations: [NICOTINE DEPEND CIGARETTES UNCOMP] Onset: 06-28-2022 Chronic Superficial injury; contusion (5 sources) Contusion of right hand; Translations: [Contusion of right hand, initial encounter] 12-29-2023 Episodic Unclassified (11 sources) SUMMARY Onset: 07-29-2016 08-02-2016 Unclassified (3 sources) CONTACT W/AND (SUSP) EXPOS COVID-19; Translations: [CONTACT W/AND (SUSP) EXPOS COVID-19] Onset: 08-23-2021 Viral infection (1 source) COVID-19; Translations: [COVID-19] Onset: 01-06-2022 Past or Other Problems Problem Classification Problem Date Documented Date Episodic/Chronic Administrative/social admission (11 sources) Discharge status; Translations: [Encounter for administrative examinations, unspecified] Onset: 08-01-2016 08-02-2016 Episodic Anxiety disorders (4 sources) Anxiety; Translations: [Anxiety disorder, unspecified] Onset: 07-30-2016 Resolved: 08-01-2016 08-01-2016 Chronic Cardiac dysrhythmias (4 sources) Palpitations; Translations: [Palpitations] Onset: 05-11-2006 Resolved: 10-16-2008 10-16-2008 Episodic Fracture of upper limb (1 source) Displaced fracture of middle phalanx of unspecified finger, initial encounter for closed fracture; Translations: [Fracture of middle phalanx of finger of right hand S62.629A] Onset: 04-12-2021 Resolved: 04-12-2021 Episodic Other aftercare (1 source) 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; Translations: [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 THERAPY] Onset: 12-20-2021 Episodic Other [...] Onset: 12-29-2023 Episodic Other nervous system disorders (11 sources) Acute postoperative pain; Translations: [Other acute postprocedural pain] Onset: 07-30-2016 08-02-2016 Episodic Residual codes; unclassified (15 sources) History of tricuspid valve repair; Translations: [Other specified postprocedural states] Onset: 08-19-2016 Episodic Residual codes; unclassified (1 source) Other specified postprocedural states; Translations: [OTH SPECIFIED POSTPROCEDURAL STATES] Onset: 12-20-2021 Episodic Unclassified (1 source) CONTACT W/AND (SUSP) EXPOS COVID-19; Translations: [CONTACT W/AND (SUSP) EXPOS COVID-19] Onset: 01-04-2022 Results Test Name Value Interpretation Reference Range Facility Ambulatory Visit Summaryon 0 01-30-2025 Ambulatory Visit Summary Ambulatory Visit Summary ALLIE FUNES :1990 Visit Date:01/30/2025 Ambulatory Visit Instructions Your Diagnosis Left testicular pain Tests Performed US Scrotum (Contents) -- Results Pending -- Please visit your patient portal for your results or contact your primary care physician. Your Care Team Attending Physician - Lavon ENRIQUEZ MD This Is Your Medications List Contact prescribing physician if questions or concerns lisinopril (lisinopril 10 mg Tab) Procedures Performed Appendectomy, Heart valve repair, Open heart surgery. Discharge Vitals Heart Rate (Peripheral) 68 Respiratory Rate 16 Blood Pressure 132/88 Height 188 cm Height 74 in Weight 107.9 kg Weight 237.878 lb BMI 30.53 What to do next You Need to Schedule the Following Appointments Follow Up with Lavon ENRIQUEZ MD, URL When: Where: [facility] [address] , [place] [id number]- Medications What How Much When Instructions Unchanged lisinopril (lisinopril 10 mg Tab) 1 Tablets Contact prescribing physician if questions or concerns Allergies Benadryl penicillin Problems Ongoing - Any problem that you are currently receiving treatment for. Heart valve disorder Hypertension Left testicular pain Patient Survey You may receive a survey via text or e-mail asking about your office visit. Please share your experience with us by completing your survey. We appreciate your feedback and thank you for choosing us for your care. Education Materials How to Take a Sitz Bath A [...] be deep enough to cover your hips and buttocks when you are sitting in the bathtub. [...] not rub your skin to dry it. Exse-vez-[id number] sitz bath To take a sitz bath with an xooi-ltu-cgndui basin: 1. Follow the vp site's instructions. 2. Fill the basin with warm [...] if it cracks, or according to the vp site's instructions. Contact a health care provider if: [...] your health care provider. Soak in the water for 15???20 minutes. ??? Stop doing sitz baths if your symptoms get worse. This information is not intended to replace advice given to you by your health care provider. Make sure you discuss any questions you have with your health care provider. Document Revised: 09/13/2022 Document Reviewed: 09/13/2022 Elsevier Patient Education ??? 2023 [employer]. Testicular Self-Exam A self-examination of your (more content not included)... Normal [facility] Provider Letteron 01-30-2025 Provider Letter Provider Letter January 30, 2025 ALLIE FUNES [address] [place] [id number] : 1990 To Whom It May Concern, Please excuse above patient from work. Date of Illness: From: 01/30/25 To: 01/30/25 May Return to Work On: 01/31/25 Restrictions: None Comments: Patient had an appointment with [facility] 01/30/25. Sincerely, [facility] Normal [facility] Urology Office/Clinic Noteon 01-30-2025 Urology Office/Clinic Note Urology Office/Clinic Note Chief Complaint new pt here for testical issues HPI Staff 34 yr old male here as PRACTICE BUSINESS ASST with testicle issues. SHIMS: 15 IPSS: pt complains of lt testicle pain and feels swollen denies pain/burning denies visible blood denies flank pain History of Present Illness Tests reviewed: UA I have reviewed the previous health record information and history for this patient from Dr. Enriquez. I have reviewed and verified the staff HPI to be accurate for this encounter. Review of Systems PHQ Score Initial Depression Screen Score: 0 SCORE ROS - Provider Constitutional: denies weight loss, denies hot flashes. Eyes: denies eye problems. Gastrointestinal: denies nausea, denies vomiting. Cardiovascular: denies chest pain or angina. Integumentary: no dryness Musculoskeletal: denies musculoskeletal symptoms. ENMT: denies otolaryngeal symptoms. Respiratory: no shortness of breath. Heme/Lymph: denies easy bleeding tendency, denies easy bruising tendency. Psychiatric: no confusion, no anxiety. Genitourinary: See HPI. Physical Exam Vitals & Measurements HR: 68(Peripheral) RR: 16 BP: 132/88 HT: 188 cm HT: 74 in WT: 107.9 kg WT: 237.878 lb BMI: 30.53 General Appearance: alert, no distress, well nourished, well developed adult. : ___. Abnormality pt is feeling seems to be his epididymis which feels normal. Overall both testicles are wnl, nothing abnl. Assessment/Plan Allie is a 34 yo M new pt here d/t testicle issues. ANJEL 15. IPSS 7. Not voicing any urinary or sexual complaints. 1. Left testicular pain (N50.812: Left testicular pain) UA neg. Pt has a sore L testicle. Also feels like there is something connected to it. Feels tight. Pain is always bugging him. Hx of hydroceles in father. Voids sometimes 6-8 qhrs. Educated pt on timed voids as infrequent voiding can cause and exacerbate infections. Suspect pt has an infectious process. Educated pt on testicular anatomy. To reassure pt, can order scrotal US to ensure no tesicular abnormalities inside the testicle itself. Pt agreeable. 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 Drinks a lot of water but also sweats a lot. PE: ___. Abnormality pt is feeling seems to be his epididymis which feels normal. Overall both testicles are wnl, nothing abnl. Follow up PRN (pending scrotal US wnl). Pt understands and agrees with plan. -Schedule scrotal US -Start timed voids -Double fluid intake Follow-up With When Contact Information PALMA ALCANTARA, Lavon Alcala, URL [facility] [address], [place] [address]- Additional Instructions: sched scrotal US, PRN Patient Education How to Take a Sitz Bath Testicular Self-Exam I, Adelina Castanon, personally scribed for Dr. Enriquez on 01/30/2025 16:14:55. . Documentation recorded by the scribe, Adelina Castanon, accurately reflects the services(s) I performed and decisions made by me. Authenticated by Dr. Enriquez on 01/30/2025 16:17:35. Problem List/Past Medical History Ongoing Heart valve disorder Hypertension Left testicular pain Historical No qualifying data Procedure/Surgical History Appendectomy, Heart valve repair, Open heart surgery. Medications lisinopril 10 mg Tab, 10 mg= 1 tab(s) Allergies Benadryl penicillin Social History Tobacco vape Tobacco Use:. Current vaping or e-cigarette use Smokeless Tobacco Use:. Vaping, 01/30/2025 Immunizations Vaccine Date Status influenza virus vaccine, inactivated 06/04/2003 Recorded measles/mumps/rubella virus vaccine 02/14/2003 Recorded hepatitis B pediatric vaccine 02/14/2003 Recorded poliovirus vaccine, inactivated 02/22/1993 Recorded Hib, unspecified formulation 02/22/1993 Recorded DTaP, unspecified formulation 02/22/1993 Recorded measles/mumps/rubella virus vaccine 04/10/1992 Recorded poliovirus vaccine, inactivated 1990 Recorded Hib, unspecified formulation 1990 Recorded poliovirus vaccine, inactivated 1990 Recorded Lab Results Ambulatory Point of Care Results Bilirubin Urine Dipstick: Negative (01/30/25 15:46:00) Blood Urine Dipstick: Negative (01/30/25 15:46:00) Glucose Urine Dipstick: Negative (01/30/25 15:46:00) Ketones Urine Dipstick: Negative (01/30/25 15:46:00) Leukocytes Urine Dipstick: Negative (01/30/25 15:46:00) Nitrite Urine Dipstick: Negative (01/30/25 15:46:00) Protein Urine Dipstick: Negative (01/30/25 15:46:00) Specific [place] Urine Dipstick: >=1.030 (01/30/25 15:46:00) Urine Appearance Urine Dipstick: Clear (01/30/25 15:46:00) Urine Color Urine Dipstick: Light yellow (01/30/25 15:46:00) Urobilinogen Urine Dipstick: Normal 0.2-1 EU/dl (01/30/25 15:46:00) pH Urine Dipstick: 5.5 (01/30/25 15:46:00) Normal [facility] Comment on above: Result Comment: Elec tronically Signed By: Lavon ENRIQUEZ MD\.br\Date and Time Signed: 01/30/25 16:17 EDT\.br\Electronically Co-Signed By: Adelina Castanon\.br\Date and Time Co-Signed: 01/30/25 16:15 EDT CBC panel Auto (Bld)on 09-09 Erythrocyte distribution width (RBC) [Ratio] 11.7 % Normal 11.5-15.0 [facility] Comment on above: Order Comment: Speci men Type: BLOOD SPECIMEN Ordering Facility: [facility] Address: [address] [place] [address] Performed By: #### 5 8410-2 #### [facility] CLIA [id number] [address] [place] [address] [place] [address] [place] Hematocrit (Bld) [Volume fraction] 43.7 % Normal 39.0-51.0 [facility] Comment on above: Order Comment: Speci men Type: BLOOD SPECIMEN Ordering Facility: [facility] Address: [address] [place] [address] Performed By: #### 5 8410-2 #### [facility] CLIA [id number] [address] [place] [address] [place] Hemoglobin (Bld) [Mass/Vol] 14.9 g/dL Normal 13.0-17.0 [facility] Comment on above: Order Comment: Speci men Type: BLOOD SPECIMEN Ordering Facility: [facility] Address: [address] [place] [address] Performed By: #### 5 8410-2 #### [facility] CLIA [id number] [address] [place] [address] [place] MCH (RBC) [Entitic mass] 30.3 pg Normal 26.0-34.0 [facility] Comment on above: Order Comment: Speci men Type: BLOOD SPECIMEN Ordering Facility: [facility] Address: [address] [place] [address] Performed By: #### 5 8410-2 #### [facility] CLIA [id number] [address] [place] [address] [place] MCHC (RBC) [Mass/Vol] 34.1 g/dL Normal 30.5-36.0 [facility] Comment on above: Order Comment: Speci men Type: BLOOD SPECIMEN Ordering Facility: [facility] Address: [address] [place] [address] Performed By: #### 5 8410-2 #### [facility] CLIA [id number] [address] [place] [address] [place] MCV (RBC) [Entitic vol] 89.0 fL Normal 80.0-100.0 [facility] Comment on above: Order Comment: Speci men Type: BLOOD SPECIMEN Ordering Facility: [facility] Address: [address] [place] [address] Performed By: #### 5 8410-2 #### [facility] CLIA [id number] [address] [place] [address] [place] Nucleated RBC (Bld) [#/Vol] 10*3/uL Normal <0.01 [facility] Comment on above: Order Comment: Speci men Type: BLOOD SPECIMEN Ordering Facility: [facility] Address: [address] [place] [address] Performed By: #### 5 8410-2 #### [facility] CLIA [id number] [address] [place] [address] [place] Platelet mean volume (Bld) [Entitic vol] 10.2 fL Normal 9.0-12.7 [facility] Comment on above: Order Comment: Speci men Type: BLOOD SPECIMEN Ordering Facility: [facility] Address: [address] [place] [address] Performed By: #### 5 8410-2 #### [facility] CLIA [id number] [address] [place] [address] [place] Platelets (Bld) [#/Vol] 282 10*3/uL Normal 150-400 [facility] Comment on above: Order Comment: Speci men Type: BLOOD SPECIMEN Ordering Facility: [facility] Address: [address] [place] [address] Performed By: #### 5 8410-2 #### [facility] CLIA [id number] [address] [place] [address] [place] RBC (Bld) [#/Vol] 4.91 10*6/uL Normal 4.20-6.00 [facility] Comment on above: Order Comment: Speci men Type: BLOOD SPECIMEN Ordering Facility: [facility] Address: [address] [place] [address] Performed By: #### 5 8410-2 #### [facility] CLIA [id number] [address] [place] [address] [place] WBC (Bld) [#/Vol] 8.31 10*3/uL Normal 3.70-11.00 [facility] Comment on above: Order Comment: Speci men Type: BLOOD SPECIMEN Ordering Facility: [facility] Address: [address] [place] [address] Performed By: #### 5 8410-2 #### [facility] IA [id number] [address] [place] [address] [place] CNOVon 09-09-2024 CNOV Office Visit (CARCMN ) ----- ALLIE FUNES ([id number]) 1990 M Date Time Provider Department 09/09/24 3:45 PM ESME HDZ CARCNH During your visit today, we recorded the following information about you: Pulse Blood pressure Weight 97/minute 143/95 106.3 kg Esme Hdz MD 09/12/2024 5:08 PM [facility] ADULT [facility] DISE[facility] OUTPATIENT VISIT DATE September 09, 2024 OUTPATIENT VISIT TYPE ESTABLISHED PRIMARY CARE PHYSICIAN: Carlos Arceo Sr. [address] [place] [address] CHIEF COMPLAINT: Follow up CONGENITAL CARDIAC HISTORY: [...] Procedure Laterality Date HEART CATHETERIZATION 02/2016 at [facility] HEART SURGERY HX 07/29/2016 s/p sternotomy, TV [...] Sputum, Shortness of breath, Wheezing, Apnea GASTROINTESTINAL: N (more content not included)... Normal [facility] Comprehensive metabolic 2000 panelon 09-09-2024 Albumin [Mass/Vol] 4.8 g/dL Normal 3.9-4.9 [facility] Comment on above: Order Comment: Speci men Type: BLOOD SPECIMEN Ordering Facility: [facility] Address: [address] [place] [address] Performed By: #### 2 4323-8, 23351-9 #### [facility] CLIA [id number] [address] [place] [address] [place] ALP [Catalytic activity/Vol] 86 U/L Normal 38-113 [facility] Comment on above: Order Comment: Speci men Type: BLOOD SPECIMEN Ordering Facility: [facility] Address: [address] [place] [address] Performed By: #### 2 4323-8, 65049-5 #### [facility] CLIA [id number] [address] [place], [place] [address] [place] ALT [Catalytic activity/Vol] 15 U/L Normal 10-54 [facility] Comment on above: Order Comment: Speci men Type: BLOOD SPECIMEN Ordering Facility: [facility] Address: [address] [place] [address] Performed By: #### 2 4323-8, 20299-9 #### [facility] CLIA [id number] [address] [place] [address] [place] Anion gap [Moles/Vol] 10 mmol/L Normal 8-15 [facility] Comment on above: Order Comment: Speci men Type: BLOOD SPECIMEN Ordering Facility: [facility] Address: [address] [place] [address] Performed By: #### 2 4323-8, 69648-4 #### [facility] CLIA [id number] [address] [place] [address] [place] AST [Catalytic activity/Vol] 11 U/L Low 14-40 [facility] Comment on above: Order Comment: Speci men Type: BLOOD SPECIMEN Ordering Facility: [facility] Address: [address] [place] [address] Performed By: #### 2 4323-8, 61196-1 #### [facility] CLIA [id number] [address] [place] [address] [place] Bilirubin [Mass/Vol] 0.4 mg/dL Normal 0.2-1.3 [facility] Comment on above: Order Comment: Speci men Type: BLOOD SPECIMEN Ordering Facility: [facility] Address: [address] [place], [place] [id number] Performed By: #### 2 4323-8, 53746-2 #### [facility] CLIA [id number] [address] [place] [address] [place] Calcium [Mass/Vol] 9.6 mg/dL Normal 8.5-10.2 [facility] Comment on above: Order Comment: Speci men Type: BLOOD SPECIMEN Ordering Facility: [facility] Address: [address] [place], [place] [id number] Performed By: #### 2 4323-8, 35514-3 #### [facility] CLIA [id number] [address] [place], [place] [id number] [place] Chloride [Moles/Vol] 105 mmol/L Normal 98-107 [facility] Comment on above: Order Comment: Speci men Type: BLOOD SPECIMEN Ordering Facility: [facility] Address: [address] [place] [address] Performed By: #### 2 4323-8, 09143-4 #### [facility] CLIA [id number] [address] [place] [address] [place] CO2 [Moles/Vol] 25 mmol/L Normal 22-30 [facility] Comment on above: Order Comment: Speci men Type: BLOOD SPECIMEN Ordering Facility: [facility] Address: [address] [place] [address] Performed By: #### 2 4323-8, 85467-9 #### [facility] CLIA [id number] [address] [place] [address] [place] Creatinine [Mass/Vol] 0.95 mg/dL Normal 0.73-1.22 [facility] Comment on above: Order Comment: Speci men Type: BLOOD SPECIMEN Ordering Facility: [facility] Address: [address] [place] [address] Performed By: #### 2 4323-8, 49957-6 #### [facility] CLIA [id number] [address] [place] [address] [place] Creatinine and Glomerular filtration rate.predicted panel (S/P/Bld) 108 mL/min/1.73m??? Normal >=60 [facility] Comment on above: Order Comment: Speci men Type: BLOOD SPECIMEN Ordering Facility: [facility] Address: [address] [place] [address] Result Comment: Sonja mated Glomerular Filtration Rate [...] actual GFR. Performed By: #### 2 4323-8, 28592-2 #### [facility] CLIA [id number] [address] [place] [address] [place] Glucose [Mass/Vol] 93 mg/dL Normal 74-99 [facility] Comment on above: Order Comment: Ana ayoub Type: BLOOD SPECIMEN Ordering Facility: [facility] Address: [address] [place] [address] Result Comment: The [place] Diabetes Association (ADA) provides guidance for cutoff [...] Standards of Medical Care in Diabetes 2016, [place] Diabetes Association. Diabetes Care. 2016.39(Suppl 1). Performed By: #### 2 4323-8, 43693-3 #### [facility] CLIA [id number] [address] [place], [place] [address] [place] Potassium [Moles/Vol] 4.0 mmol/L Normal 3.7-5.1 [facility] Comment on above: Order Comment: Ana ayoub Type: BLOOD SPECIMEN Ordering Facility: [facility] Address: [address] [place] [address] Performed By: #### 2 4323-8, 89913-5 #### [facility] CLIA [id number] [address] [place], [place] [address] [place] Protein [Mass/Vol] 7.4 g/dL Normal 6.3-8.0 [facility] Comment on above: Order Comment: Speci men Type: BLOOD SPECIMEN Ordering Facility: [facility] Address: [address] [place] [address] Performed By: #### 2 4323-8, 33968-8 #### [facility] [place] [id number] [address] [place] [address] [place] Sodium [Moles/Vol] 140 mmol/L Normal 136-144 [facility] Comment on above: Order Comment: Speci men Type: BLOOD SPECIMEN Ordering Facility: [facility] Address: [address] [place] [address] Performed By: #### 2 4323-8, 91582-1 #### [facility] [place] [id number] [address] [place] [address] [place] Urea nitrogen [Mass/Vol] 11 mg/dL Normal 9-24 [facility] Comment on above: Order Comment: Speci men Type: BLOOD SPECIMEN Ordering Facility: [facility] Address: [address] [place] [address] Performed By: #### 2 4323-8, 63921-0 #### [facility] [place] [id number] [address] [place] [address] [place] ECG COMPLETEon 09-09-2024 ECG COMPLETE Ventricular Rate : 7 0 BPM Atrial Rate : 70 BPM P-R Interval : 132 ms QRS Duration : 168 ms Q-T Interval : 426 ms QTC Calculation(Bazett) : 460 ms Calculated P [place] : 36 degrees Calculated R [place] : 69 degrees Calculated T [place] : 23 degrees NORMAL SINUS RHYTHM COMPLETE RIGHT BUNDLE BRANCH BLOCK ABNORMAL ECG Confirmed by GEOVANNA MARTINES MD ([id number]) on 10/08/2024 8:14:00 PM NAME : ALLIE FUNES PID : [id number] : 1990 Gender : Male Race : ORD : [id number] Procedure Date : Sep 09 2024 14:07:29 Edit Date : Oct 08 2024 20:14:03 Diagnosis: NORMAL SINUS RHYTHM COMPLETE RIGHT BUNDLE BRANCH BLOCK ABNORMAL ECG Confirmed by GEOVANNA MARTINES MD ([id number]) on 10/08/2024 8:14:00 PM Test Reason : Location : 314 : J14 Overread By : GEOVANNA MARTINES MD Edited By : GEOVANNA MARTINES MD Referred By : ESME HDZ Acquired by : MIKE HSIN [facility] ECHO SPECIALIST COMPLEX ADUL T CONGENITALon 09-09-2024 ECHO SPECIALIST COMPLEX ADULT CONGENITAL Echocardiography Report: [facility] MARIAH-2 Date of service: 09/09/2024 1:34:55 PM [facility] [employer] Ordering physician: ESME HDZ Indication: Ebstein anomaly [...] exam performed on 11/01/2023. Similar findings. Final [facility] : [id number] See Link below for Image Normal [facility] Lipid 1996 panelon 5 Cholesterol [Mass/Vol] 142 mg/dL Normal <200 [facility] Comment on above: Order Comment: Speci men Type: BLOOD SPECIMEN Ordering Facility: [facility] Address: [address] [place] [address] Result Comment: <200 mg/dL, Desirable 200-239 mg/dL, Borderline high >239 mg/dL, High Performed By: #### 2 4323-8, 11102-2 #### [facility] CLIA [id number] [address] [place] [address] [place] Cholesterol in HDL [Mass/Vol] 33 mg/dL Low >39 [facility] Comment on above: Order Comment: Speci men Type: BLOOD SPECIMEN Ordering Facility: [facility] Address: [address] [place] [address] Result Comment: 40-5 9 mg/dL, Acceptable >59 mg/dL, High: Negative risk factor for coronary heart disease <40 mg/dL, Low: Positive risk factor for coronary heart disease Performed By: #### 2 4323-8, 62498-2 #### [facility] CLIA [id number] [address] [place] [address] [place] Cholesterol in LDL [Mass/Vol] 97 mg/dL Normal <100 [facility] Comment on above: Order Comment: Speci men Type: BLOOD SPECIMEN Ordering Facility: [facility] Address: [address] [place] [address] Result Comment: <100 mg/dL, Optimal 100-129 mg/dL, Near optimal/above optimal 130-159 mg/dL, Borderline high 160-189 mg/dL, High >189 mg/dL, Very high Secondary prevention optimal LDL Cholesterol levels are recommended to be < 70 mg/dL Performed By: #### 2 4323-8, 39645-5 #### [facility] CLIA [id number] [address] [place] [address] [place] Cholesterol in LDL/Cholesterol in HDL [Mass ratio] 2.94 {ratio} High <2.54 [facility] Comment on above: Order Comment: Melissai men Type: BLOOD SPECIMEN Ordering Facility: [facility] Address: [address] [place] [address] Result Comment: Refnaren [place]: 1. National Cholesterol Education Program ATP III Guideline At-A-Glance Quick Desk Reference: National Heart, Lung, and Blood [place]. National Institutes of Health. 2001: NIH Publication No. 01-3305. 2. An International Atherosclerosis Society position paper: global recommendations for the management of dyslipidemia: executive summary, Atherosclerosis. 2014: 232(2):410-413. Performed By: #### 2 4323-8, 87836-5 #### [facility] CLIA [id number] [address] [place] [address] [place] Cholesterol in VLDL [Mass/Vol] 12 mg/dL Normal <30 [facility] Comment on above: Order Comment: Speci men Type: BLOOD SPECIMEN Ordering Facility: [facility] Address: [address] [place] [id number] Performed By: #### 2 4323-8, 84121-2 #### [facility] CLIA [id number] [address] [address] [place] Cholesterol non HDL [Mass/Vol] 109 mg/dL Normal <130 [facility] Comment on above: Order Comment: Speci men Type: BLOOD SPECIMEN Ordering Facility: [facility] Address: [address] [place] [id number] Result Comment: <130 mg/dL, Optimal 130-159 mg/dL, Near optimal/above optimal 160-189 mg/dL, Borderline high 190-219 mg/dL, High >219 mg/dL, Very high Secondary prevention optimal non HDL Cholesterol levels are recommended to be <100 mg/dL Performed By: #### 2 4323-8, 60881-5 #### [facility] CLIA [id number] [address] [place], [place] [address] [place] Cholesterol.total/Chol esterol in HDL [Mass ratio] 4.30 {ratio} Normal <5.10 [facility] Comment on above: Order Comment: Speci men Type: BLOOD SPECIMEN Ordering Facility: [facility] Address: [address] [place], [place] [address] Performed By: #### 2 4323-8, 06450-6 #### [facility] CLIA [id number] [address] [place], [place] [address] [place] FASTING TIME 12 hrs Normal [facility] Comment on above: Order Comment: Speci men Type: BLOOD SPECIMEN Ordering Facility: [facility] Address: [address] [place] [id number] Performed By: #### 2 4323-8, 06224-8 #### [facility] CLIA [id number] [address] [place], [place] [address] [place] Triglyceride [Mass/Vol] 59 mg/dL Normal <150 [facility] Comment on above: Order Comment: Speci men Type: BLOOD SPECIMEN Ordering Facility: [facility] Address: [address] [place] [address] Result Comment: <150 mg/dL, Normal 150-199 mg/dL, Borderline high 200-499 mg/dL, High >499 mg/dL, Very high Performed By: #### 2 4323-8, 27430-6 #### [facility] CLIA [id number] [address] [place], [place] [address] [place] [address] [place] Alanine aminotransferase [En zymatic activity/volume] in Serum or PlasmaOrdered By: Allen Cheung on 08-01-2024 ALT [Catalytic activity/Vol] Alanine aminotransferase [Enzymatic activity/volume] in Serum or Plasma 7-52 [facility] Albumin [Mass/volume] in Ser um or Plasma by Bromocresol green (BCG) dye binding methoOrdered By: Allen Cheung on 08-01-2024 Albumin BCG dye [Mass/Vol] Albumin [Mass/volume] in Serum or Plasma by Bromocresol green (BCG) dye binding metho 3.5-5.7 [facility] Alkaline phosphatase [Enzyma tic activity/volume] in Serum or PlasmaOrdered By: Allen Cheung on 08-01-2024 ALP [Catalytic activity/Vol] Alkaline phosphatase [Enzymatic activity/volume] in Serum or Plasma 34-104 [facility] Aspartate aminotransferase [ Enzymatic activity/volume] in Serum or PlasmaOrdered By: Allen Cheung on 08-01-2024 AST [Catalytic activity/Vol] Aspartate aminotransferase [Enzymatic activity/volume] in Serum or Plasma 13-39 [facility] B-Type Natriuretic Peptideon 08-01-2024 Natriuretic peptide B (Bld) [Mass/Vol] 23.0 pg/mL Normal 5-100 [facility] Comment on above: Result Comment: PERF ORMED BY: [facility] [address] [place] [address] PATHOLOGIST SUPER[employer] FAREED DAVALOS M.D. Performed By: #### C K, HS TROP, PTT, BNP, PT, BMP, HEPATIC, CBC #### [address] Basic Metabolic Panelon 020 Anion gap [Moles/Vol] 14.3 mmol/L Normal 6.0-15.0 e [facility] Comment on above: Performed By: #### C K, HS TROP, PTT, BNP, PT, BMP, HEPATIC, CBC #### [address] Calcium [Mass/Vol] 9.9 mg/dL Normal 8.6-10.3 [facility] Comment on above: Result Comment: PERF ORMED BY: [place] [address] PATHOLOGIST SUPERVIS[employer] F[employer] DAVALOS M.D. Performed By: #### C K, HS TROP, PTT, BNP, PT, BMP, HEPATIC, CBC #### [address] Chloride [Moles/Vol] 104 mmol/L Normal 98-107 [facility] Comment on above: Performed By: #### C K, HS TROP, PTT, BNP, PT, BMP, HEPATIC, CBC #### [address] CO2 [Moles/Vol] 22.0 mmol/L Normal 21.0-31.0 [facility] Comment on above: Performed By: #### C K, HS TROP, PTT, BNP, PT, BMP, HEPATIC, CBC #### [address] Creatinine [Mass/Vol] 1.01 mg/dL Normal 0.70-1.30 [facility] Comment on above: Performed By: #### C K, HS TROP, PTT, BNP, PT, BMP, HEPATIC, CBC #### [address] GFR/1.73 sq M.predicted MDRD (S/P/Bld) [Vol rate/Area] mL/min/{1.73_m2} Normal [facility] Comment on above: Performed By: #### C K, HS TROP, PTT, BNP, PT, BMP, HEPATIC, CBC #### [facility] [address] Glucose [Mass/Vol] 99 mg/dL Normal 70-100 [facility] Comment on above: Result Comment: [place] Glucose Reference Range is dependent on time and content of last meal. Glucose of more than 200 mg/dL in a nonstressed, ambulatory subject supports the diagnosis of Diabetes Mellitus. ADA recommended reference range Performed By: #### C K, HS TROP, PTT, BNP, PT, BMP, HEPATIC, CBC #### [address] Potassium [Moles/Vol] 3.3 mmol/L Low 3.5-5.1 [facility] Comment on above: Performed By: #### C K, HS TROP, PTT, BNP, PT, BMP, HEPATIC, CBC #### [address] Sodium [Moles/Vol] 137 mmol/L Normal 136-145 [facility] Comment on above: Performed By: #### C K, HS TROP, PTT, BNP, PT, BMP, HEPATIC, CBC #### [address] Urea nitrogen [Mass/Vol] 15 mg/dL Normal 7-25 [facility] Comment on above: Performed By: #### C K, HS TROP, PTT, BNP, PT, BMP, HEPATIC, CBC #### [address] Basophils Auto (Bld) [#/Vol] Ordered By: Allen Cheung on 08-01-2024 Basophils (Bld) [#/Vol] Automated basophil count 0.0-0.2 [facility] Basophils/100 WBC Auto (Bld) Ordered By: Allen Cheung on 08-01-2024 Basophils/100 WBC (Bld) Automated basophil % . [facility] Bilirubin.direct [Mass/volum e] in Serum or PlasmaOrdered By: Allen Cheung on 08-01-2024 Bilirubin.direct [Mass/Vol] Bilirubin.direct [Mass/volume] in Serum or Plasma High 0.03-0.18 [facility] Bilirubin.total [Mass/volume ] in Serum or PlasmaOrdered By: Allen Cheung on 08-01-2024 Bilirubin [Mass/Vol] Bilirubin.total [Mass/volume] in Serum or Plasma High 0.3-1.0 [facility] Comment on above: Samples from patient s who have taken Naproxen have shown spurious elevation in Total Bilirubin levels. A metabolite of Naproxen, O-desmethylnaproxen, has been shown to interfere with the Jendrassik-Grof method for measuring Total Bilirubin. BioFire Not Detectedon 08-01 BioFire Not Detected Not detected Normal Not Detecte [facility] Comment on above: Result Comment: This is a duplicate RP2.1 COVID (PCR) result to be used for statistical tracking purpose only. PERFORMED BY: [place] [address] PATHOLOGIST SUPER[employer] FAREED DAVALOS M.D. Performed By: #### B IOFIRECOVNOTDE, RESP PANEL UPP. ####[address] COVID-19 Detected/Not Detect edOrdered By: Allen Cheung on 08-01-2024 SARS-CoV-2 (COVID-19) RNA HERBERTH+non-probe Ql (Nph) Not detected Not Detecte [facility] Comment on above: This is a duplicate RP2.1 COVID (PCR) result to be used for statistical tracking purpose only. CT angio chest PE protocolon 08-01-2024 CT angio chest PE protocol [facility] [place] [address] CT Scan Report Signed Patient: Allie Funes MR#: [id number] : 1990 Acct:[id number] Age/Sex: 34 / M ADM Date: 08/01/24 Loc: ER Room: Type: [facility] ER Attending Dr: Copies to: Allen Cheung [...] Zachary Castle M.D.08/01/2024 6:05 PM Dictation Location: [place] [address] Transcribed By: [facility] 08/01/241804 Dictated By: Zachary Castle DO 08/01/241801 Signed By: 08/01/241804 Normal [facility] Calcium [Mass/volume] in Ser um or PlasmaOrdered By: Allen Cheung on 08-01-2024 Calcium [Mass/Vol] Calcium [Mass/volume ] in Serum or Plasma 8.6-10.3 [facility] Carbon dioxide, total [Moles /volume] in Serum or PlasmaOrdered By: Allen Cheung on 08-01-2024 CO2 [Moles/Vol] Carbon dioxide, tota l [Moles/volume] in Serum or Plasma 21.0-31.0 [facility] Chloride [Moles/volume] in S katharine or PlasmaOrdered By: Allen Cheung on 08-01-2024 Chloride [Moles/Vol] Chloride [Moles/vol ume] in Serum or Plasma 98-107 [facility] Complete Blood Count Auto Di ffon 08-01-2024 Basophils (Bld) [#/Vol] 0.1 10*3/uL Normal 0.0-0.2 [facility] Comment on above: Result Comment: PERF ORMED BY: [place] [address] PATHOLOGIST SUPERVIS[employer] FAREED DAVALOS M.D. Performed By: #### C K, HS TROP, PTT, BNP, PT, BMP, HEPATIC, CBC #### [address] Basophils/100 WBC (Bld) 1.4 % Normal . [facility] Comment on above: Performed By: #### C K, HS TROP, PTT, BNP, PT, BMP, HEPATIC, CBC #### [address] Eosinophils (Bld) [#/Vol] 0.3 10*3/uL Normal 0.0-0.45 [facility] Comment on above: Performed By: #### C K, HS TROP, PTT, BNP, PT, BMP, HEPATIC, CBC #### [address] Eosinophils/100 WBC (Bld) 3.0 % Normal . [facility] Comment on above: Performed By: #### C K, HS TROP, PTT, BNP, PT, BMP, HEPATIC, CBC #### [address] Erythrocyte distribution width (RBC) [Ratio] 12.8 % Normal 12.0-14.8 [facility] Comment on above: Performed By: #### C K, HS TROP, PTT, BNP, PT, BMP, HEPATIC, CBC #### [address] Hematocrit (Bld) [Volume fraction] 43.5 % Normal 38.8-50.0 [facility] Comment on above: Performed By: #### C K, HS TROP, PTT, BNP, PT, BMP, HEPATIC, CBC #### [address] Hemoglobin (Bld) [Mass/Vol] 15.1 g/dL Normal 13.0-17.0 [facility] Comment on above: Performed By: #### C K, HS TROP, PTT, BNP, PT, BMP, HEPATIC, CBC #### [address] Lymphocytes (Bld) [#/Vol] 3.8 10*3/uL Normal 1.00-4.8 [facility] Comment on above: Performed By: #### C K, HS TROP, PTT, BNP, PT, BMP, HEPATIC, CBC #### [address] Lymphocytes/100 WBC (Bld) 37.5 % Normal . [facility] Comment on above: Performed By: #### C K, HS TROP, PTT, BNP, PT, BMP, HEPATIC, CBC #### [address] MCH (RBC) [Entitic mass] 30.6 pg Normal 27.5-35.2 [facility] Comment on above: Performed By: #### C K, HS TROP, PTT, BNP, PT, BMP, HEPATIC, CBC #### [address] MCV (RBC) [Entitic vol] 88.2 fL Normal 83.5-101 [facility] Comment on above: Performed By: #### C K, HS TROP, PTT, BNP, PT, BMP, HEPATIC, CBC #### [address] Mean Corpuscular HGB Conc 34.7 g/dL Normal 32.5-35.6 [facility] Comment on above: Performed By: #### C K, HS TROP, PTT, BNP, PT, BMP, HEPATIC, CBC #### [address] Monocytes (Bld) [#/Vol] 0.6 10*3/uL Normal 0.0-0.8 [facility] Comment on above: Performed By: #### C K, HS TROP, PTT, BNP, PT, BMP, HEPATIC, CBC #### [address] Monocytes/100 WBC (Bld) 18.75 % Normal 0.00-20.00 [facility] Comment on above: Performed By: #### C K, HS TROP, PTT, BNP, PT, BMP, HEPATIC, CBC #### [address] Monocytes/100 WBC (Bld) 5.7 % Normal . [facility] Comment on above: Performed By: #### C K, HS TROP, PTT, BNP, PT, BMP, HEPATIC, CBC #### [address] Neutrophils (Bld) [#/Vol] 5.3 10*3/uL Normal 1.8-7.7 [facility] Comment on above: Performed By: #### C K, HS TROP, PTT, BNP, PT, BMP, HEPATIC, CBC #### [address] Neutrophils/100 WBC (Bld) 52.4 % Normal . [facility] Comment on above: Performed By: #### C K, HS TROP, PTT, BNP, PT, BMP, HEPATIC, CBC #### [address] NRBC% 0.1 /100{WBC} Normal 0-0.5 [facility] Comment on above: Performed By: #### C K, HS TROP, PTT, BNP, PT, BMP, HEPATIC, CBC #### [address] Platelet mean volume (Bld) [Entitic vol] 8.5 fL Normal 6.6-10.1 [facility] Comment on above: Performed By: #### C K, HS TROP, PTT, BNP, PT, BMP, HEPATIC, CBC #### [address] Platelets (Bld) [#/Vol] 343 10*3/uL Normal 150-450 [facility] Comment on above: Performed By: #### C K, HS TROP, PTT, BNP, PT, BMP, HEPATIC, CBC #### [facility] [address] RBC (Bld) [#/Vol] 4.93 10*6/uL Normal 3.90-5.60 [facility] Comment on above: Performed By: #### C K, HS TROP, PTT, BNP, PT, BMP, HEPATIC, CBC #### [facility] [address] WBC (Bld) [#/Vol] 10.2 10*3/uL Normal 4.1-10.5 [facility] Comment on above: Performed By: #### C K, HS TROP, PTT, BNP, PT, BMP, HEPATIC, CBC #### [facility] [address] [place] [id number] [facility] Creatine Kinaseon 08-01-2024 CK [Catalytic activity/Vol] 66 U/L Normal 30-223 [facility] Comment on above: Performed By: #### C K, HS TROP, PTT, BNP, PT, BMP, HEPATIC, CBC ####[facility] [id number] [place] [id number] [facility] Creatine kinase [Enzymatic a ctivity/volume] in Serum or PlasmaOrdered By: Allen Cheung on 08-01-2024 CK [Catalytic activity/Vol] Creatine kinase [Enzymatic activity/volume] in Serum or Plasma 30-223 [facility] Creatinine [Mass/volume] in Serum or PlasmaOrdered By: Allen Cheung on 08-01-2024 Creatinine [Mass/Vol] Creatinine [Mass/v olume] in Serum or Plasma 0.70-1.30 [facility] ECG 12 lead ECGon 08-01-2024 ECG 12 lead ECG [facility] Main [place] [address] [place] [address] Electrocardiograph Report Signed Patient: Allie Funes MR#: [id number] : 1990 Acct:[id number] Age/Sex: 34 / M ADM Date: 08/01/24 Loc: ER Room: Type: [facility] ER Attending Dr: Ordering Provider: Allen Cheung, Date of Service: 02/12/18/1640 ECG/ECG 12 lead ECG: CHEST PAIN Copies to: Test Reason : Blood Pressure : 134/82 mmHG Vent. Rate : 132 BPM Atrial Rate : 132 BPM P-R Int : 96 ms QRS Dur : 164 ms QT Int : 394 ms P-R-T Axes : * 197 26 degrees QTcB Int : 583 ms Sinus tachycardia with short NC Right bundle branch block Possible Inferior infarct , age undetermined Abnormal ECG When compared with ECG of 19-Feb-2016 09:44, NC interval has decreased Vent. rate has increased by 52 bpm QRS duration has increased Borderline criteria for Inferior infarct are now present T wave amplitude has increased in Lateral leads Confirmed by Allen Cheung DO ([id number]) on 08/01/2024 7:18:48 PM Referred By: Electronically Signed By: Allen Cheung DO Transcribed By: MUS Signed By Allen Cheung DO 1917 Normal [facility] Eosinophils Auto (Bld) [#/Vo l]Ordered By: Allen Cheung on 08-01-2024 Eosinophils (Bld) [#/Vol] Automated eosinophil count 0.0-0.45 [facility] Eosinophils/100 WBC Auto (Bl d)Ordered By: Allen Cheung on 08-01-2024 Eosinophils/100 WBC (Bld) Automated eosinophil % . [facility] Erythrocyte distribution wid th Auto (RBC) [Ratio]Ordered By: Allen Cheung on 08-01-2024 Erythrocyte distribution width (RBC) [Ratio] Erythrocyte distribution width [Ratio] by Automated count 12.0-14.8 [facility] Globulin Calc (S) [Mass/Vol] Ordered By: Allen Cheung on 08-01-2024 Globulin (S) [Mass/Vol] Serum globulin measurement by calculation (mass/volume) [facility] Glucose [Mass/volume] in Ser um or PlasmaOrdered By: Allen Cheung on 08-01-2024 Glucose [Mass/Vol] Glucose [Mass/volume ] in Serum or Plasma 70-100 [facility] Comment on above: ADA recommended refe rence rangeRandom Glucose Reference Range is dependent on time and content of last meal. Glucose of more than 200 mg/dL in a nonstressed, ambulatory subject supports the diagnosis of Diabetes Mellitus. Hematocrit Auto (Bld) [Volum e fraction]Ordered By: Allen Cheung on 08-01-2024 Hematocrit (Bld) [Volume fraction] Hematocrit [Volume Fraction] of Blood by Automated count 38.8-50.0 [facility] Hemoglobin [Mass/volume] in BloodOrdered By: Allen Cheung on 08-01-2024 Hemoglobin (Bld) [Mass/Vol] Hemoglobin [Mass/volume] in Blood 13.0-17.0 [facility] Hepatic Panelon 08-01-2024 Albumin [Mass/Vol] 5.1 g/dL Normal 3.5-5.7 [facility] Comment on above: Performed By: #### C K, HS TROP, PTT, BNP, PT, BMP, HEPATIC, CBC #### [facility] [address] Albumin/Globulin [Mass ratio] 1.6 {ratio} Normal [facility] Comment on above: Performed By: #### C K, HS TROP, PTT, BNP, PT, BMP, HEPATIC, CBC #### [facility] [address] ALP [Catalytic activity/Vol] 76 U/L Normal 34-104 [facility] Comment on above: Performed By: #### C K, HS TROP, PTT, BNP, PT, BMP, HEPATIC, CBC #### [facility] [address] [place] [id number] [facility] ALT [Catalytic activity/Vol] 26 U/L Normal 7-52 [facility] Comment on above: Performed By: #### C K, HS TROP, PTT, BNP, PT, BMP, HEPATIC, CBC #### [place] [address] [place] AST [Catalytic activity/Vol] 17 U/L Normal 13-39 [facility] Comment on above: Performed By: #### C K, HS TROP, PTT, BNP, PT, BMP, HEPATIC, CBC #### [address] Bilirubin [Mass/Vol] 1.3 mg/dL High 0.3-1.0 [facility] Comment on above: Result Comment: Samp les from patients who have taken Naproxen have shown spurious elevation in Total Bilirubin levels. A metabolite of Naproxen, O-desmethylnaproxen, has been shown to interfere with the Jendrassik-Grof method for measuring Total Bilirubin. Performed By: #### C K, HS TROP, PTT, BNP, PT, BMP, HEPATIC, CBC #### [facility] [address] Bilirubin,Indirect 1.1 mg/dL Normal [facility] Comment on above: Performed By: #### C K, HS TROP, PTT, BNP, PT, BMP, HEPATIC, CBC #### [facility] [address] Bilirubin.indirect [Mass/Vol] 0.20 mg/dL High 0.03-0.18 [facility] Comment on above: Performed By: #### C K, HS TROP, PTT, BNP, PT, BMP, HEPATIC, CBC #### [facility] [address] Globulin (S) [Mass/Vol] 3.1 g/dL Normal [facility] Comment on above: Performed By: #### C K, HS TROP, PTT, BNP, PT, BMP, HEPATIC, CBC #### [address] Protein [Mass/Vol] 8.2 g/dL Normal 6.4-8.9 [facility] Comment on above: Performed By: #### C K, HS TROP, PTT, BNP, PT, BMP, HEPATIC, CBC #### [address] INR in Platelet poor plasma by Coagulation assayOrdered By: Allen Cheung on 08-01-2024 INR Coag (PPP) [Relative time] INR in Platelet poor plasma by Coagulation assay [facility] Comment on above: INR Therapeutic Rang e [...] erythrocytes in Blood by Automated coun 4.1-10.5 [facility] Lymphocytes Auto (Bld) [#/Vo l]Ordered By: Allen Cheung on 08-01-2024 Lymphocytes (Bld) [#/Vol] Lymphocytes [#/volume] in Blood by Automated count 1.00-4.8 [facility] Lymphocytes/100 WBC Auto (Bl d)Ordered By: Allen Cheung on 08-01-2024 Lymphocytes/100 WBC (Bld) Lymphocytes/100 leukocytes in Blood by Automated count . [facility] MCH Auto (RBC) [Entitic mass ]Ordered By: Allen Cheung on 08-01-2024 MCH (RBC) [Entitic mass] MCH [Entitic mass] by Automated count 27.5-35.2 [facility] MCHC Auto (RBC) [Mass/Vol]Or dered By: Allen Cheung on 08-01-2024 MCHC (RBC) [Mass/Vol] MCHC [Mass/volume] by Automated count 32.5-35.6 [facility] MCV Auto (RBC) [Entitic vol] Ordered By: Allen Cheung on 08-01-2024 MCV (RBC) [Entitic vol] MCV [Entitic volume] by Automated count 83.5-101 [facility] Monocyte distribution width [Entitic volume] in Blood by AutomatedOrdered By: Allen Cheung on 08-01-2024 Monocyte distribution width Auto (Bld) [Entitic vol] Monocyte distribution width [Entitic volume] in Blood by Automated 0.00-20.00 [facility] Monocytes Auto (Bld) [#/Vol] Ordered By: Allen Cheung on 08-01-2024 Monocytes (Bld) [#/Vol] Automated blood monocyte count 0.0-0.8 [facility] Monocytes/100 WBC Auto (Bld) Ordered By: Allen Cheung on 08-01-2024 Monocytes/100 WBC (Bld) Automated monocyte % . [facility] Natriuretic peptide B [Mass/ Vol]Ordered By: Allen Cheung on 08-01-2024 Natriuretic peptide B (Bld) [Mass/Vol] BNP ser/plas 5-100 [facility] Neutrophils Auto (Bld) [#/Vo l]Ordered By: Allen Cheung on 08-01-2024 Neutrophils (Bld) [#/Vol] Neutrophils [#/volume] in Blood by Automated count 1.8-7.7 [facility] Neutrophils/100 WBC Auto (Bl d)Ordered By: Allen Cheung on 08-01-2024 Neutrophils/100 WBC (Bld) Automated neutrophil % . [facility] No Panel InformationOrdered By: Allen Cheung on 08-01-2024 Estimated GFR (CKD-EPI) > 60.0 mL/Min [facility] Creatinine Clearance (Chem N/A [facility] Nucleated erythrocytes [Pres ence] in Blood by Automated countOrdered By: Allen Cheung on 08-01-2024 Nucleated RBC Auto Ql (Bld) Nucleated erythrocytes [Presence] in Blood by Automated count 0-0.5 [facility] Partial Thromboplastin Timeo n 08-01-2024 aPTT Coag (Bld) [Time] 32.1 s Normal 25.1-36.5 [facility] e [facility] Comment on above: Result Comment: A he matocrit value greater than 55% may lead to inaccurate results in coagulation testing. Patients having hematocrit values >55% require a special collection tube for coagulation studies. Please contact the laboratory at [phone] for redraw instructions. PERFORMED BY: [facility] [address] [place] [address] PATHOLOGIST [employer] FAREED DAVALOS M.D. Performed By: #### C K, HS TROP, PTT, BNP, PT, BMP, HEPATIC, CBC #### [facility] [address] [place] [address] [facility] Platelet mean volume Auto (B ld) [Entitic vol]Ordered By: Allen Cheung on 08-01-2024 Platelet mean volume (Bld) [Entitic vol] Platelet mean volume [Entitic volume] in Blood by Automated count 6.6-10.1 [facility] Platelets Auto (Bld) [#/Vol] Ordered By: Allen Cheung on 08-01-2024 Platelets (Bld) [#/Vol] Platelets [#/volume] in Blood by Automated count 150-450 [facility] Potassium [Moles/volume] in Serum or PlasmaOrdered By: Allen Cheung on 08-01-2024 Potassium [Moles/Vol] Potassium [Moles/v olume] in Serum or Plasma Low 3.5-5.1 [facility] Protein [Mass/volume] in Ser um or PlasmaOrdered By: Allen Cheung on 08-01-2024 Protein [Mass/Vol] Protein [Mass/volume ] in Serum or Plasma 6.4-8.9 [facility] Prothrombin Time INRon 08-01 INR Coag (PPP) [Relative time] 1.0 {INR} Normal [facility] Comment on above: Result Comment: [...] PTT, BNP, PT, BMP, HEPATIC, CBC #### [facility] [address] PT Coag (PPP) [Time] 11.8 s Normal 9.0-12.9 [facility] Comment on above: Result Comment: A he matocrit value greater than 55% may lead to inaccurate results in coagulation testing. Patients having hematocrit values >55% require a special collection tube for coagulation studies. Please contact the laboratory at [phone] for redraw instructions. Performed By: #### C K, HS TROP, PTT, BNP, PT, BMP, HEPATIC, CBC #### [facility] [address] [place] [id number] [facility] Prothrombin time (PT)Ordered By: Allen Cheung on 08-01-2024 PT Coag (PPP) [Time] Prothrombin time (PT) 9.0- 12.9 [facility] Comment on above: A hematocrit value g reater than 55% may lead to inaccurate results in coagulation testing. Patients having hematocrit values >55% require a special collection tube for coagulation studies. Please contact the laboratory at [phone] for redraw instructions. RBC Auto (Bld) [#/Vol]Ordere d By: Allen Cheung on 08-01-2024 RBC (Bld) [#/Vol] Erythrocytes [#/volu me] in Blood by Automated count 3.90-5.60 [facility] Respiratory (Upper) Panel, P CRon 08-01-2024 Respiratory [...] A H3 Blank Space ---- PERFORMED BY: [facility] [place] [address] PATHOLOGIST [employer] FARE[employer] DAVALOS M.D. Normal [facility] Comment on above: Performed By: #### B IOFIRECOVNOTDE, RESP PANEL UPP. ####[facility] [address] [place] [address] [facility] Respiratory pathogens DNA an d RNA panel - Nasopharynx by HERBERTH with non-probe detectionOrdered By: Allen Cheung on 08-01-2024 Respiratory pathogens DNA and RNA panel HERBERTH+non-probe (Nph) Respiratory pathogens DNA and RNA panel - Nasopharynx by HERBERTH with non-probe detection [facility] Respiratory pathogens DNA and RNA panel HERBERTH+non-probe (Nph) Respiratory pathogens DNA and RNA panel - Nasopharynx by HERBERTH with non-probe detection [facility] Serum or plasma albumin/glob ulin mass ratioOrdered By: Allen Cheung on 08-01-2024 Albumin/Globulin [Mass ratio] Serum or plasma albumin/globulin mass ratio [facility] Serum or plasma anion gap de terminationOrdered By: Allen Cheung on 08-01-2024 Anion gap [Moles/Vol] Serum or plasma an ion gap determination 6.0-15.0 [facility] Serum or plasma non-glucuron idated bilirubin measurement (mass/volume)Ordered By: Allen Cheung on 08-01-2024 Bilirubin.indirect [Mass/Vol] Serum or plasma non-glucuronidated bilirubin measurement (mass/volume) [facility] Sodium [Moles/volume] in Ser um or PlasmaOrdered By: Allen Cheung on 08-01-2024 Sodium [Moles/Vol] Sodium [Moles/volume ] in Serum or Plasma 136-145 [facility] Troponin I High Sensitivityo n 08-01-2024 Troponin I High Sensitivity 4 Normal 0-20 [facility] Comment on above: Result Comment: The Troponin units of report have been changed to meet the Chest Pain Accreditation requirement, element EC5.M1l2. Troponin units are changed from pg/ml to ng/L. Also, the decimal is removed and results are in whole numbers. PERFORMED BY: [facility] [address] [facility] [address] PATHOLOGIST [employer] FAREED DAVALOS M.D. Performed By: #### H S TROP ####[address] Troponin I High Sensitivity 4 Normal 0-20 [facility] Comment on above: Result Comment: The Troponin units of report have been changed to meet the Chest Pain Accreditation requirement, element EC5.M1l2. Troponin units are changed from pg/ml to ng/L. Also, the decimal is removed and results are in whole numbers. PERFORMED BY: [facility] [address] [place] [address] PATHOLOGIST [employer]PER[employer] FAREED DAVALOS M.D. Performed By: #### C K, HS TROP, PTT, BNP, PT, BMP, HEPATIC, CBC ####[place] [address] [address] Troponin I.cardiac [Mass/vol ume] in Serum or Plasma by Detection limit <= 0.01 ng/Ordered By: Allen Cheung on 08-01-2024 Troponin I.cardiac DL <= 0.01 ng/mL [Mass/Vol] Troponin I.cardiac [Mass/volume] in Serum or Plasma by Detection limit <= 0.01 ng/ 0-20 [facility] Comment on above: The Troponin units o f report have been changed to meet the Chest Pain Accreditation requirement, element EC5.M1l2. Troponin units are changed from pg/ml to ng/L. Also, the decimal is removed and results are in whole numbers. Urea nitrogen [Mass/volume] in Serum or PlasmaOrdered By: Allen Cheung on 08-01-2024 Urea nitrogen [Mass/Vol] Urea nitrogen [Mass/volume] in Serum or Plasma 7-25 [facility] WBC Auto (Bld) [#/Vol]Ordere d By: Allen Cheung on 08-01-2024 WBC (Bld) [#/Vol] Leukocytes [#/volume ] in Blood by Automated count 4.1-10.5 [facility] X-ray reportOrdered By: Juan Manuel Castle on 08-01-2024 Study report [facility] Main [place] [address] [place] [address] XRay Report Signed Patient: Allie Funes MR#: [id number] : 1990 Acct:[id number] Age/Sex: 34 / M ADM Date: 5 Loc: ER Room: Type: [facility] ER Attending Dr: Copies to: Allen Cheung [...] Zachary Castle M.D.08/01/2024 5:19 PM Dictation Location[facility] Transcribed By: [facility] 08/01/241718 Dictated By: Zachary Castle DO 08/01/241718 Signed By: 08/01/241718 [facility] XR chest 1V portableon 08-01 XR chest 1V portable [facility] [place] [address] XRay Report Signed Patient: Allie Funes MR#: [id number] : 1990 Acct:[id number] Age/Sex: 34 / M ADM Date: 08/01/24 Loc: ER Room: Type: [facility] ER Attending Dr: Copies to: Allen Cheung [...] Zachary Castle M.D.08/01/2024 5:19 PM Dictation Location: [place] [address] Transcribed By: [facility] 08/01/241718 Dictated By: Zachary Castle DO 08/01/241718 Signed By: 08/01/241718 Normal [facility] aPTT in Platelet poor plasma by Coagulation assayOrdered By: Allen Cheung on 08-01-2024 aPTT Coag (PPP) [Time] Activated partial thromboplastin time (aPTT) in platelet poor plasma by coagulation a 25.1-36.5 [facility] Comment on above: A hematocrit value g reater than 55% may lead to inaccurate results in coagulation testing. Patients having hematocrit values >55% require a special collection tube for coagulation studies. Please contact the laboratory at [phone] for redraw instructions. Toni 06-17-2024 CNPN Telephone (CARCMN) ----- ALLIE FUNES ([id number]) 1990 M Date Time Provider Department 06/17/24 ES[facility] HDZ During your visit today, we recorded the following information about you: Erica Maldonado 06/17/2024 4:02 PM Signed June 17, 2024 Patient Contact Number: [phone] Patient last seen within the last year: [...] Fully Assessed Reason for Visit: Patient Question [5447] Prescriptions as of 06/17/2024 - lisinopril (ZESTRIL) [...] Status:Closed by SHAKIRA CARDENAS on 06/17/24 Normal [facility] XR forearm RT 2V*on 12-29-19 24 XR forearm RT 2V* [facility] Main [place] [address] [place], [place] [id number] XRay Report Signed Patient: Allie Funes MR#: [id number] : 1990 Acct:[id number] Age/Sex: 33 / M ADM Date: 12/29/23 Loc: XDUCLY Room: Type: [facility] CLI Attending Dr: Teresa Ojeda DINING ROOM HOST/HOSTESS Copies to: Teresa Ojeda APRN Ordering Provider: [...] Zachary Castle M.D.12/29/2023 1:41 PM Dictation Location: [place] [address] Transcribed By: [facility] 12/29/23 1341 Dictated By: Zachary Castle DO 12/29/23 1339 Signed By: 12/29/23 1341 Normal [facility] XR hand RT min 3V*on 024 XR hand RT min 3V* [facility] Main [place] [address] [place] [address] XRay Report Signed Patient: Allie Funes MR#: [id number] : 1990 Acct:[id number] Age/Sex: 33 / M ADM Date: 12/29/23 Loc: XDUCLY Room: Type: [facility] CLI Attending Dr: Teresa Ojeda DINING ROOM HOST/HOSTESS Copies to: Teresa Ojeda APRN Ordering Provider: [...] Zachary Castle M.D.12/29/2023 1:38 PM Dictation Location: [place] [address] Transcribed By: [facility] 12/29/23 1338 Dictated By: Zachary Castle DO 12/29/23 1335 Signed By: 12/29/23 1338 Normal [facility] ECHO SPECIALIST COMPLEX ADUL Bobo CONGENITALon 11-05-2023 Echocardiography Report: [facility] [id number] Date of service: 11/01/2023 12:48:23 PM OF [employer] Ordering physician: ESME HDZ Indication: Dysplastic TV / TVR Technologist: Ronald Bonilla RDCS Interpreting physician: Esme Hdz MD PATIENT: Name: [...] content not included)... [facility] CBC panel Auto (Bld)on 10-31 Erythrocyte distribution width (RBC) [Ratio] 11.8 % Normal 11.5-15.0 [facility] Comment on above: Order Comment: Speci men Type: BLOOD SPECIMEN Ordering Facility: [facility] Address: [address] [place] [address] Performed By: #### 5 8410-2 #### [facility] CLIA [id number] [address] [place] [address] [place] Hematocrit (Bld) [Volume fraction] 41.7 % Normal 39.0-51.0 [facility] Comment on above: Order Comment: Speci men Type: BLOOD SPECIMEN Ordering Facility: [facility] Address: [address] [place] [address] Performed By: #### 5 8410-2 #### [facility] CLIA [id number] [address] [place] [address] [place] Hemoglobin (Bld) [Mass/Vol] 14.5 g/dL Normal 13.0-17.0 [facility] Comment on above: Order Comment: Speci men Type: BLOOD SPECIMEN Ordering Facility: [facility] Address: [address] [place] [address] Performed By: #### 5 8410-2 #### [facility] CLIA [id number] [address] [place] [address] [place] MCH (RBC) [Entitic mass] 30.3 pg Normal 26.0-34.0 [facility] Comment on above: Order Comment: Speci men Type: BLOOD SPECIMEN Ordering Facility: [facility] Address: [address] [place] [address] Performed By: #### 5 8410-2 #### [facility] CLIA [id number] [address] [place] [address] [place] MCHC (RBC) [Mass/Vol] 34.8 g/dL Normal 30.5-36.0 [facility] Comment on above: Order Comment: Speci men Type: BLOOD SPECIMEN Ordering Facility: [facility] Address: [address] [place] [address] Performed By: #### 5 8410-2 #### [facility] CLIA [id number] [address] [place] [address] [place] MCV (RBC) [Entitic vol] 87.2 fL Normal 80.0-100.0 [facility] Comment on above: Order Comment: Speci men Type: BLOOD SPECIMEN Ordering Facility: [facility] Address: [address] [place] [address] Performed By: #### 5 8410-2 #### [facility] CLIA [id number] [address] [place] [address] [place] Nucleated RBC (Bld) [#/Vol] 10*3/uL Normal <0.01 [facility] Comment on above: Order Comment: Speci men Type: BLOOD SPECIMEN Ordering Facility: [facility] Address: [address] [place] [address] Performed By: #### 5 8410-2 #### [facility] CLIA [id number] [address] [place] [address] [place] Platelet mean volume (Bld) [Entitic vol] 10.3 fL Normal 9.0-12.7 [facility] Comment on above: Order Comment: Speci men Type: BLOOD SPECIMEN Ordering Facility: [facility] Address: [address] [place] [address] Performed By: #### 5 8410-2 #### [facility] CLIA [id number] [address] [place] [address] [place] Platelets (Bld) [#/Vol] 295 10*3/uL Normal 150-400 [facility] Comment on above: Order Comment: Speci men Type: BLOOD SPECIMEN Ordering Facility: [facility] Address: [address] [place] [address] Performed By: #### 5 8410-2 #### [facility] CLIA [id number] [address] [place] [address] [place] RBC (Bld) [#/Vol] 4.78 10*6/uL Normal 4.20-6.00 [facility] Comment on above: Order Comment: Speci men Type: BLOOD SPECIMEN Ordering Facility: [facility] Address: [address] [place] [address] Performed By: #### 5 8410-2 #### [facility] CLIA [id number] [address] [place] [address] [place] WBC (Bld) [#/Vol] 7.94 10*3/uL Normal 3.70-11.00 [facility] Comment on above: Order Comment: Speci men Type: BLOOD SPECIMEN Ordering Facility: [facility] Address: [address] [place] [address] Performed By: #### 5 8410-2 #### [facility] CLIA [id number] [address] [place] [address] [place] CNOVon 11-01-2023 CNOV Office Visit (CARCMN ) ----- ALLIE FUNES ([id number]) 1990 M Date Time Provider Department 11/01/23 2:15 PM [facility] During your visit today, we recorded the following information about you: Pulse Blood pressure Weight 92/minute 128/86 107.7 kg Esme Hdz MD 11/05/2023 4:22 PM Signed [facility] [place] [facility] OUTPATIENT VISIT DATE November 01, 2023 OUTPATIENT VISIT TYPE ESTABLISHED PRIMARY CARE PHYSICIAN: Carlos Arceo Sr. [address] [place] [address] CHIEF COMPLAINT: Follow up CONGENITAL CARDIAC HISTORY: [...] Procedure Laterality Date HEART CATHETERIZATION 02/2016 at [facility] HEART SURGERY HX 07/29/2016 s/p sternotomy, TV [...] rhonchi. H (more content not included)... Normal [facility] Comprehensive metabolic 2000 panelon 11-01-2023 Albumin [Mass/Vol] 4.6 g/dL Normal 3.9-4.9 [facility] Comment on above: Order Comment: Speci men Type: BLOOD SPECIMEN Ordering Facility: [facility] Address: [address] [place] [address] Performed By: #### L IPNF, 80012-5, 10379-4 #### [facility] CLIA [id number] [address] [place] [address] [place] ALP [Catalytic activity/Vol] 83 U/L Normal 38-113 [facility] Comment on above: Order Comment: Speci men Type: BLOOD SPECIMEN Ordering Facility: [facility] Address: [address] [place] [address] Performed By: #### L IPNF, 82565-4, 21350-2 #### [facility] CLIA [id number] [address] [place] [address] [place] ALT [Catalytic activity/Vol] 21 U/L Normal 10-54 [facility] Comment on above: Order Comment: Speci men Type: BLOOD SPECIMEN Ordering Facility: [facility] Address: [address] [place] [address] Performed By: #### L IPNF, 01913-5, 90328-1 #### [facility] CLIA [id number] [address] [place] [address] [place] Anion gap [Moles/Vol] 14 mmol/L Normal 9-18 [facility] Comment on above: Order Comment: Speci men Type: BLOOD SPECIMEN Ordering Facility: [facility] Address: [address] [place] [address] Performed By: #### L IPNF, 67635-7, 32875-2 #### [facility] CLIA [id number] [address] [place] [address] [place] AST [Catalytic activity/Vol] 15 U/L Normal 14-40 [facility] Comment on above: Order Comment: Speci men Type: BLOOD SPECIMEN Ordering Facility: [facility] Address: [address] [place] [address] Performed By: #### L IPNF, 29946-2, 17450-8 #### [facility] CLIA [id number] [address] [place] [address] [place] Bilirubin [Mass/Vol] 0.8 mg/dL Normal 0.2-1.3 [facility] Comment on above: Order Comment: Speci men Type: BLOOD SPECIMEN Ordering Facility: [facility] Address: [address] [place] [address] Performed By: #### L IPNF, 24585-1, 93324-1 #### [facility] CLIA [id number] [address] [place] [address] [place] Calcium [Mass/Vol] 9.9 mg/dL Normal 8.5-10.2 [facility] Comment on above: Order Comment: Speci men Type: BLOOD SPECIMEN Ordering Facility: [facility] Address: [address] [place] [address] Performed By: #### L IPNF, 49075-9, 55924-9 #### [facility] CLIA [id number] [address] [place] [address] [place] Chloride [Moles/Vol] 103 mmol/L Normal 97-105 [facility] Comment on above: Order Comment: Speci men Type: BLOOD SPECIMEN Ordering Facility: [facility] Address: [address] [place] [address] Performed By: #### L IPNF, 86619-9, 26895-5 #### [facility] CLIA [id number] [address] [place] [address] [place] CO2 [Moles/Vol] 21 mmol/L Low 22-30 [facility] Comment on above: Order Comment: Speci men Type: BLOOD SPECIMEN Ordering Facility: [facility] Address: [address] [place] [address] Performed By: #### L IPNF, 84617-9, 59623-7 #### [facility] CLIA [id number] [address] [place] [address] [place] Creatinine [Mass/Vol] 0.99 mg/dL Normal 0.73-1.22 [facility] Comment on above: Order Comment: Speci men Type: BLOOD SPECIMEN Ordering Facility: [facility] Address: [address] [place] [address] Performed By: #### L IPNF, 99309-3, 91131-0 #### [facility] CLIA [id number] [address] [place] [address] [place] Creatinine and Glomerular filtration rate.predicted panel (S/P/Bld) 103 mL/min/1.73m??? Normal >=60 [facility] Comment on above: Order Comment: Speci men Type: BLOOD SPECIMEN Ordering Facility: [facility] Address: [address] [place] [address] Result Comment: Sonja mated Glomerular Filtration Rate [...] actual GFR. Performed By: #### L IPNF, 01662-7, 72796-3 #### [facility] CLIA [id number] [address] [place] [address] [place] Glucose [Mass/Vol] 96 mg/dL Normal 74-99 [facility] Comment on above: Order Comment: Specya men Type: BLOOD SPECIMEN Ordering Facility: [facility] Address: [address] [place] [address] Result Comment: The [place] Diabetes Association (ADA) provides guidance for cutoff [...] Standards of Medical Care in Diabetes 2016, [place] Diabetes Association. Diabetes Care. 2016.39(Suppl 1). Performed By: #### L IPNF, 38158-1, 83381-2 #### [facility] CLIA [id number] [address] [place] [address] [place] Potassium [Moles/Vol] 4.1 mmol/L Normal 3.7-5.1 [facility] Comment on above: Order Comment: Melissai men Type: BLOOD SPECIMEN Ordering Facility: [facility] Address: [address] [place] [address] Performed By: #### L IPNF, 97467-8, 96942-0 #### [facility] CLIA [id number] [address] [place] [address] [place] Protein [Mass/Vol] 7.5 g/dL Normal 6.3-8.0 [facility] Comment on above: Order Comment: Ana ayoub Type: BLOOD SPECIMEN Ordering Facility: [facility] Address: [address] [place] [address] Performed By: #### L IPNF, 56377-6, 67194-7 #### [facility] CLIA [id number] [address] [place] [address] [place] Sodium [Moles/Vol] 138 mmol/L Normal 136-144 [facility] Comment on above: Order Comment: Speci men Type: BLOOD SPECIMEN Ordering Facility: [facility] Address: [address] [place] [address] Performed By: #### L IPLUIS ENRIQUE, 25435-3, 60901-7 #### [facility] CLIA [id number] [address] [place] [address] [place] Urea nitrogen [Mass/Vol] 18 mg/dL Normal 9-24 [facility] Comment on above: Order Comment: Speci men Type: BLOOD SPECIMEN Ordering Facility: [facility] Address: [address] [place] [address] Performed By: #### L IPNF, 81992-3, 80088-5 #### [facility] IA [id number] [address] [place] [address] [place] ECG COMPLETEon 11-01-2023 ECG COMPLETE Ventricular Rate : 9 0 BPM Atrial Rate : 90 BPM P-R Interval : 146 ms QRS Duration : 160 ms Q-T Interval : 400 ms QTC Calculation(Bazett) : 489 ms Calculated P [place] : 36 degrees Calculated R [place] : 68 degrees Calculated T [place] : 17 degrees NORMAL SINUS RHYTHM COMPLETE RIGHT BUNDLE BRANCH BLOCK ABNORMAL ECG Confirmed by ASHLEY PAIZ MD ([id number]) on 11/03/2023 11:00:39 PM NAME : ALLIE FUNES PID : [id number] : 1990 Gender : Male Race : ORD : [id number] Procedure Date : Nov 01 2023 10:22:27 Edit Date : Nov 03 2023 23:00:45 Diagnosis: NORMAL SINUS RHYTHM COMPLETE RIGHT BUNDLE BRANCH BLOCK ABNORMAL ECG Confirmed by ASHLEY PAIZ MD ([id number]) on 11/03/2023 11:00:39 PM Test Reason : Location : [facility] : J14 J14 Overread By : ASHLEY PIAZ MD Edited By : ASHLEY PAIZ MD Referred By : ESME HDZ Acquired by : GINA MUNROE [facility] ECHOACHDon 11-01-2023 ECHOACHD Echocardiography Rep ort: [facility] J1-5 Date of service: 11/01/2023 12:48:23 PM OF D[employer]ITAL ADVERTISING [employer] INTEGRATION Ordering physician: ESME HDZ Indication: Dysplastic TV / TVR Technologist: Ronald Bonilla [facility] Interpreting physician: Esme Hdz MD PATIENT: [...] regurgitation noted today. Otherwise similar findings. Final [facility] : [id number] See Link below for Image Normal [facility] EXERCISE STRESS ECG METABOLI C (WITHOUT IMAGING)on 11-01-2023 EXERCISE STRESS ECG METABOLIC (WITHOUT IMAGING) Stress ECG Report: Exercise Stress ECG Metabolic (without Imaging) [facility] MARIAH-2 Date of service: 11/01/2023 9:06:58 AM OF DIGITAL ADVERTISING [employer] INTEGRATION movement education specialist: Cathy Lopez Papeterie Table Assembler: Tamika Dixon Interpreting physician: Maggie Cruz MD [...] Protocol: Denice 10% Stress Exercise Table: +-----+ +------ --+ [...] stress lab #: 1 Study protocol type: Denice 10% Final treadmill speed: 3.40 mph Final [...] (HRR): 6 bpm Rate Pressure Product (RPP): 36652 Metabolic Exercise Data Variable: Observed value [Expected [...] KE, No WW, Heidi DY and Tin Cummings & Reginalds: Principles of Exercise Testing and Interpretation: Including Pathophysiology and Clinical Applications: [employer]; 2020. - Rhonda Reagan, Logan HUYNH, Jack (more content not included)... Normal [facility] LIPID PANEL, NONFASTINGon Cholesterol [Mass/Vol] 184 mg/dL Normal <200 [facility] Comment on above: Order Comment: Speci men Type: BLOOD SPECIMEN Ordering Facility: [facility] Address: [address] [place] [address] Result Comment: <200 mg/dL, Desirable 200-239 mg/dL, Borderline high >239 mg/dL, High Performed By: #### L IPLUIS ENRIQUE, 68336-8, 11581-6 #### [facility] CLIA [id number] [address] [place], [place] [address]K [id number] [place] [address] [place] HDL CHOLESTEROL, NF 36 mg/dL Low >39 [facility] Comment on above: Order Comment: Speci men Type: BLOOD SPECIMEN Ordering Facility: [facility] Address: [address] [place] [address] Result Comment: 40-5 9 mg/dL, Acceptable >59 mg/dL, High: Negative risk factor for coronary heart disease <40 mg/dL, Low: Positive risk factor for coronary heart disease Performed By: #### L IPLUIS ENRIQUE, 53605-2, 20310-1 #### [facility] CLIA [id number] [address] [place] [address] [place] LDL CHOLESTEROL, NF 112 mg/dL High <100 [facility] Comment on above: Order Comment: Ana ayoub Type: BLOOD SPECIMEN Ordering Facility: [facility] Address: [address] [place] [address] Result Comment: <100 mg/dL, Optimal 100-129 mg/dL, Near optimal/above optimal 130-159 mg/dL, Borderline high 160-189 mg/dL, High >189 mg/dL, Very high Secondary prevention optimal LDL Cholesterol levels are recommended to be < 70 mg/dL Performed By: #### L MADYSON, 83899-9, 80871-7 #### [facility] CLIA [id number] [address] [place] [address] [place] LDL/HDL RATIO, NF 3.11 mg/dL High <2.54 [facility] Comment on above: Order Comment: Ana ayoub Type: BLOOD SPECIMEN Ordering Facility: [facility] Address: [address] [place] [address] Result Comment: Refe burt: 1. National Cholesterol Education Program ATP III Guideline At-A-Glance Quick Desk Reference: National Heart, Lung, and Blood [place]. National Institutes of Health. 2001: NIH Publication No. 01-3305. 2. An International Atherosclerosis Society position paper: global recommendations for the management of dyslipidemia: executive summary, Atherosclerosis. 2014: 232(2):410-413. Performed By: #### L MADYSON, 22519-1, 38100-3 #### [facility] CLIA [id number] [address] [place] [address] [place] NON HDL CHOL, NF 148 mg/dL High <130 [facility] Comment on above: Order Comment: Ana ayoub Type: BLOOD SPECIMEN Ordering Facility: [facility] Address: [address] [place] [address] Result Comment: <130 mg/dL, Optimal 130-159 mg/dL, Near optimal/above optimal 160-189 mg/dL, Borderline high 190-219 mg/dL, High >219 mg/dL, Very high Secondary prevention optimal non HDL Cholesterol levels are recommended to be <100 mg/dL Performed By: #### L MADYSON, 12384-0, 75805-9 #### [facility] CLIA [id number] [address] [place] [address] [place] T CHOL/HDL RATIO NF 5.11 mg/dL High <5.10 [facility] Comment on above: Order Comment: Speci men Type: BLOOD SPECIMEN Ordering Facility: [facility] Address: [address] [place] [address] Performed By: #### L MADYSON, 43995-5, 04655-5 #### [facility] CLIA [id number] [address] [place] [address] [place] TRIGLYCERIDES, NF 181 mg/dL High <150 [facility] Comment on above: Order Comment: Ana men Type: BLOOD SPECIMEN Ordering Facility: [facility] Address: [address] [place] [address] Result Comment: <150 mg/dL, Normal 150-199 mg/dL, Borderline high 200-499 mg/dL, High >499 mg/dL, Very high Performed By: #### L MADYSON, 61053-7, 58977-8 #### [facility] CLIA [id number] [address] [place] [address] [place] VLDL CHOLESTEROL, NF 36 mg/dL High <30 [facility] Comment on above: Order Comment: Melissai men Type: BLOOD SPECIMEN Ordering Facility: [facility] Address: [address] [place] [address] Performed By: #### L MADYSON, 94832-3, 61702-1 #### [facility] CLIA [id number] [address] [place] [address] [place] NT-proBNP [facility] 10-31 Natriuretic peptide.B prohormone N-Terminal [Mass/Vol] 88 pg/mL Normal <125 [facility] Comment on above: Order Comment: Speci men Type: BLOOD SPECIMEN Ordering Facility: [facility] Address: [address] [place] [address] Performed By: #### L IP, 55334-7, 59604-0 #### [facility] CLIA [id number] [address] [place] [address] [place] [address] [place] No Panel Informationon 10-20 [facility] CBC AUTO DIFFon 06-27-2022 BASO # 0.1 103/ul Normal 0.0-0.1 [facility] Comment on above: Performed By: #### C BC #### [facility] [address] [place] [address] Dr. Temi Lux Basophils/100 WBC (Bld) 0.9 % Normal 0.2-2.0 [facility] Comment on above: Performed By: #### C BC #### [facility] [address] [place] [address] Dr. Temi Lux EO # 0.2 103/ul Normal 0.0-0.7 [facility] Comment on above: Performed By: #### C BC #### [facility] [address] [place] [address] Dr. Temi Lux Eosinophils/100 WBC (Bld) 2.1 % Normal 0.9-7.0 [facility] Comment on above: Performed By: #### C BC #### [facility] [address] [place] [address] Dr. Temi Lux Erythrocyte distribution width (RBC) [Ratio] 11.8 % Normal 11.0-15.0 [facility] Comment on above: Performed By: #### C BC #### [facility] [address] [place] [address] Dr. Temi Lux Hematocrit (Bld) [Volume fraction] 41.7 % Critically low 42.0-54.0 [facility] Comment on above: Performed By: #### C BC #### [facility] [address] [place] [address] Dr. Temi Lux Hemoglobin (Bld) [Mass/Vol] 14.7 g/dL Normal 14.0-18.0 [facility] Comment on above: Performed By: #### C BC #### [facility] [address] [place] [address] Dr. Temi Lux IG # 0.03 10e3/ul Normal 0.00-0.03 [facility] Comment on above: Performed By: #### C BC #### [facility] [address] [place] [address] Dr. Temi Lux IG % 0.3 % Normal 0.0-0.5 [facility] Comment on above: Performed By: #### C BC #### [facility] [address] [place] [address] Dr. Temi Lux LYMPH # 3.4 103/ul Normal 1.2-3.8 [facility] Comment on above: Performed By: #### C BC #### [facility] [address] [place] [address] Dr. Temi Lux Lymphocytes/100 WBC (Bld) 35.2 % Normal 20.5-60.0 [facility] Comment on above: Performed By: #### C BC #### [facility] [address] [place] [address] Dr. Temi Lux MANUAL DIFF REQ NO Normal [facility] Comment on above: Performed By: #### C BC #### [facility] [address] [place] [address] Dr. Temi Lux MCH (RBC) [Entitic mass] 31.3 pg Normal 25.9-34.0 [facility] Comment on above: Performed By: #### C BC #### [facility] [address] [place] [address] Dr. Temi Lux MCHC (RBC) [Mass/Vol] 35.3 g/dL Critically high 29.9-35.2 [facility] Comment on above: Performed By: #### C BC #### [facility] [address] [place] [address] Dr. Temi Lux MCV (RBC) [Entitic vol] 88.9 fL Normal 80.0-94.0 [facility] Comment on above: Performed By: #### C BC #### [facility] [address] [place] [address] Dr. Temi Lux MONO # 0.4 103/ul Normal 0.3-0.8 [facility] Comment on above: Performed By: #### C BC #### [facility] [address] [place] [address] Dr. Temi Lux Monocytes/100 WBC (Bld) 4.6 % Normal 1.7-12.0 [facility] Comment on above: Performed By: #### C BC #### [facility] [address] [place] [address] Dr. Temi Lux NEUT # 5.4 103/ul Normal 1.4-6.5 [facility] Comment on above: Performed By: #### C BC #### [facility] [address] [place] [address] Dr. Temi Lux Neutrophils/100 WBC (Bld) 56.9 % Normal 43.0-75.0 [facility] Comment on above: Performed By: #### C BC #### [facility] [address] [place] [address] Dr. Temi Lux Platelet mean volume (Bld) [Entitic vol] 10.1 fL Normal 9.5-13.5 [facility] Comment on above: Performed By: #### C BC #### [facility] [address] [place] [address] Dr. Temi Lux PLT 291 103/ul Normal 150-450 [facility] Comment on above: Performed By: #### C BC #### [facility] [address] [place], [place] [id number] Dr. Temi Lux RBC 4.69 106/ul Critically low 4.70-6.[address] [facility] Comment on above: Performed By: #### C BC #### [facility] [address] [place] [address] Dr. Temi Lux WBC 9.5 103/ul Normal 4.0-11.0 [facility] Comment on above: Performed By: #### C BC #### [facility] [address] [place] [address] Dr. Temi Lux PROF CHEM 8 (BAS METB)on Anion gap [Moles/Vol] 12.5 mmol/L Normal Th [facility] Comment on above: Performed By: #### B MP, HSTROPN #### [facility] [address] [place] [address] Dr. Temi Lux Calcium [Mass/Vol] 9.2 mg/dL Normal 8.5-10.1 [facility] Comment on above: Performed By: #### B MP, HSTROPN #### [facility] [address] [place] [address] Dr. Temi Lux Chloride [Moles/Vol] 102 mmol/L Normal 98-107 [facility] Comment on above: Performed By: #### B BRANNON, HSTROPN #### [facility] [address] [place] [address] Dr. Temi Lux CO2 [Moles/Vol] 26.0 mmol/L Normal 21.0-32.0 [facility] Comment on above: Performed By: #### B MP, HSTROPN #### [facility] [address] [place] [address] Dr. Temi Lux Creatinine [Mass/Vol] 0.91 mg/dL Normal 0.70-1.30 [facility] Comment on above: Performed By: #### B MP, HSTROPN #### [facility] [address] [place] [address] Dr. Temi Lux EGFR-AF BELIZEAN >60 Normal >=60 [facility] Comment on above: Performed By: #### B MP, HSTROPN #### [facility] [address] [place] [address] Dr. Temi Lux EGFR-NON AF BELIZEAN >60 Normal >=60 [facility] Comment on above: Performed By: #### B MP, HSTROPN #### [facility] [address] [place] [address] Dr. Temi Lux Glucose [Mass/Vol] 100 mg/dL Normal 74-106 [facility] Comment on above: Performed By: #### B BRANNON, HSTROPN #### [facility] [address] [address] [address] Temi Lux Potassium [Moles/Vol] 4.5 mmol/L Normal 3.5-5.1 [facility] Comment on above: Performed By: #### B BRANNON, HSTROPN #### [facility] [address] [address] [address] Temi Lux Sodium [Moles/Vol] 136 mmol/L Normal 136-145 [facility] Comment on above: Performed By: #### B BRANNON, HSTROPN #### [facility] [address] [place] [address] Dr. Temi Lux Urea nitrogen [Mass/Vol] 16.0 mg/dL Normal 7.0-18.0 [facility] Comment on above: Performed By: #### B BRANNON, HSTROPN #### [facility] [address] [address] [address] Temi Lux Urea nitrogen/Creatinine [Mass ratio] 17.6 mg/mg Normal [facility] Comment on above: Performed By: #### B BRANNON, HSTROPN #### [facility] [address] [place] [address] Dr. Temi Lux TROPONIN, HIGH SENSITIVITYon 06-27-2022 HSTROP 4.2 pg/mL Normal 4.0-76.1 [facility] Comment on above: Result Comment: CUT- OFF POINTS HAVE BEEN ESTABLISHED BASED ON THE FOURTH UNIVERSAL DEFINITIONS OF MYOCARDIAL INFARCTION. THE UPPER REFERENCE LIMIT (URL) OF TROPONIN, DEFINED THE 99TH PERCENTILE OF cTnI DISTRIBUTION IN A REFERENCE POPULATION, HAS BEEN CONFIRMED THE DECISION THRESHOLD FOR VA DIAGNOSIS. Performed By: #### B BRANNON, HSTROPN #### [facility] [address] [place] [address] Dr. Temi Lux XR CHEST 1 Von [...] acute cardiopulmonary abnormalities. Electronically authenticated by: BILL LOUISELISETHJASONEDDIE Date: 2022-06-27 18:22 Normal [facility] Covid-19 PCR (CVDTBH)on 12-24 SARS-CoV-2 (COVID-19) RNA HERBERTH+probe Ql (Unsp spec) Detected Critically abnormal NOT DETECTED [facility] Comment on above: Result Comment: This test is not yet approved or cleared by the [place] FDA. When there are no FDA-approved or cleared tests available, and other criteria are met, FDA can make tests available under an emergency access mechanism called an Emergency Use Authorization (EUA). The EUA for this test is supported by the [place] of Health and Human Service's declaration that [...] for this test is supported by the [employer] [place] of Health and Human Service's (HHS's) declaration [...] no longer be used). Performed By: #### C ROME, BMP #### [facility] [address] [place] [address] Dr. Temi Lux CARDIAC KAROL 3-6on 2 CK [Catalytic activity/Vol] 72 U/L Normal 39-308 [facility] Comment on above: Performed By: #### Gino PETER, BMP #### [facility] [address] [place] [address] Dr. Temi Lux CK.MB [Mass/Vol] 0.71 ng/mL Normal <=3.60 [facility] Comment on above: Performed By: #### C ROME, BMP #### [facility] [address] [place] [address] Dr. Temi Lux HSTROP 4.7 pg/mL Normal 4.0-76.1 [facility] Comment on above: Result Comment: CUT- OFF POINTS HAVE BEEN ESTABLISHED BASED ON THE FOURTH UNIVERSAL DEFINITIONS OF MYOCARDIAL INFARCTION. THE UPPER REFERENCE LIMIT (URL) OF TROPONIN, DEFINED THE 99TH PERCENTILE OF cTnI DISTRIBUTION IN A REFERENCE POPULATION, HAS BEEN CONFIRMED THE DECISION THRESHOLD FOR VA DIAGNOSIS. Performed By: #### Gino PETER, BMP #### [facility] [address] [place] [address] Dr. Temi Lux CARDIAC KAROL ADMITon 022 CK [Catalytic activity/Vol] 80 U/L Normal 39-308 [facility] Comment on above: Performed By: #### Gino PETER, BMP #### [facility] [address] [place] [address] Dr. Temi Lux CK.MB [Mass/Vol] 0.66 ng/mL Normal <=3.60 [facility] Comment on above: Performed By: #### Gino PETER, BMP #### [facility] [facility] [address] [place] [address] Dr. Temi Lux HSTROP 5.6 pg/mL Normal 4.0-76.1 [facility] Comment on above: Result Comment: CUT- OFF POINTS HAVE BEEN ESTABLISHED BASED ON THE FOURTH UNIVERSAL DEFINITIONS OF MYOCARDIAL INFARCTION. THE UPPER REFERENCE LIMIT (URL) OF TROPONIN, DEFINED THE 99TH PERCENTILE OF cTnI DISTRIBUTION IN A REFERENCE POPULATION, HAS BEEN CONFIRMED THE DECISION THRESHOLD FOR VA DIAGNOSIS. Performed By: #### Gino PETER, BMP #### [facility] [address] [place] [address] Dr. Temi Lux BARBARA 25 ng/mL Normal 16-96 [facility] Comment on above: Performed By: #### C MADM, BMP #### [facility] [address] [place] [address] Dr. Temi Lux CBC AUTO DIFFon 12-17-2021 BASO # 0.1 103/ul Normal 0.0-0.1 [facility] Comment on above: Performed By: #### C BC #### [facility] [address] [place] [address] Dr. Temi Lux Basophils/100 WBC (Bld) 0.7 % Normal 0.2-2.0 [facility] Comment on above: Performed By: #### C BC #### [facility] [address] [place] [address] Dr. Temi Lux EO # 0.3 103/ul Normal 0.0-0.7 [facility] Comment on above: Performed By: #### C BC #### [facility] [address] [place] [address] Dr. Temi Lux Eosinophils/100 WBC (Bld) 2.6 % Normal 0.9-7.0 [facility] Comment on above: Performed By: #### C BC #### [facility] [address] [place] [address] Dr. Temi Lux Erythrocyte distribution width (RBC) [Ratio] 11.7 % Normal 11.0-15.0 [facility] Comment on above: Performed By: #### C BC #### [facility] [address] [place] [address] Dr. Temi Lux Hematocrit (Bld) [Volume fraction] 41.8 % Critically low 42.0-54.0 [facility] Comment on above: Performed By: #### C BC #### [facility] [address] [place] [address] Dr. Temi Lux Hemoglobin (Bld) [Mass/Vol] 14.3 g/dL Normal 14.0-18.0 [facility] Comment on above: Performed By: #### C BC #### [facility] [address] [place] [address] Dr. Temi Lux IG # 0.03 10e3/ul Normal 0.00-0.03 [facility] Comment on above: Performed By: #### C BC #### [facility] [address] [place] [address] Dr. Temi Lux IG % 0.2 % Normal 0.0-0.5 [facility] Comment on above: Performed By: #### C BC #### [facility] [address] [place] [address] Dr. Temi Lux LYMPH # 3.7 103/ul Normal 1.2-3.8 [facility] Comment on above: Performed By: #### C BC #### [facility] [address] [place] [address] Dr. Temi Lux Lymphocytes/100 WBC (Bld) 31.0 % Normal 20.5-60.0 [facility] Comment on above: Performed By: #### C BC #### [facility] [address] [place] [address] Dr. Temi Lux MANUAL DIFF REQ NO Normal [facility] Comment on above: Performed By: #### C BC #### [facility] [address] [place] [address] Dr. Temi Lux MCH (RBC) [Entitic mass] 31.2 pg Normal 25.9-34.0 [facility] Comment on above: Performed By: #### C BC #### [facility] [address] [place] [address] Dr. Temi Lux MCHC (RBC) [Mass/Vol] 34.2 g/dL Normal 29.9-35.2 [facility] Comment on above: Performed By: #### C BC #### [facility] [address] [place] [address] Dr. Temi Lux MCV (RBC) [Entitic vol] 91.1 fL Normal 80.0-94.0 [facility] Comment on above: Performed By: #### C BC #### [facility] [address] [place] [address] Dr. Temi Lux MONO # 0.7 103/ul Normal 0.3-0.8 [facility] Comment on above: Performed By: #### C BC #### [facility] [address] [address] [address] Temi Lux Monocytes/100 WBC (Bld) 5.4 % Normal 1.7-12.0 [facility] Comment on above: Performed By: #### C BC #### [facility] [address] [address] [address] Temi Lux NEUT # 7.3 103/ul Critically high 1.4-6.[address] [facility] Comment on above: Performed By: #### C BC #### [facility] [address] [place] [address] Dr. Temi Lux Neutrophils/100 WBC (Bld) 60.1 % Normal 43.0-75.0 [facility] Comment on above: Performed By: #### C BC #### [facility] [address] [place] [address] Dr. Temi Lux Platelet mean volume (Bld) [Entitic vol] 10.1 fL Normal 9.5-13.5 [facility] Comment on above: Performed By: #### C BC #### [facility] [address] [place] [address] Dr. Temi Lux PLT 252 103/ul Normal 150-450 [facility] Comment on above: Performed By: #### C BC #### [facility] [address] [place] [address] Dr. Temi Lux RBC 4.59 106/ul Critically low 4.70-6.[address] [facility] Comment on above: Performed By: #### C BC #### [facility] [address] [place] [address] Dr. Temi Lux WBC 12.1 103/ul Critically high 4.0-11.0 [facility] Comment on above: Performed By: #### C BC #### [facility] [address] [place] [address] Dr. Temi Lux D-DIMERon 12-17-2021 D-DIMER <0.19 Normal <=0.59 [facility] Comment on above: Performed By: #### D DIM #### [facility] [address] [place] [address] Dr. Temi Lux D-DIMER COMMENTS SEE BELOW Normal [facility] Comment on above: Result Comment: Incr eases [...] hospitalization. Performed By: #### D DIM #### [facility] [address] [place] [address] Dr. Temi Lux PROF CHEM 8 (BAS METB)on Anion gap [Moles/Vol] 12.4 mmol/L Normal [facility] Comment on above: Performed By: #### C ROME, BMP #### [facility] [address] [place] [address] Dr. Temi Lux Calcium [Mass/Vol] 9.1 mg/dL Normal 8.5-10.1 [facility] Comment on above: Performed By: #### C ROME, BMP #### [facility] [address] [place] [address] Dr. Temi Lux Chloride [Moles/Vol] 105 mmol/L Normal 98-107 [facility] Comment on above: Performed By: #### C ROME, BMP #### [facility] [address] [place] [address] Dr. Temi Lux CO2 [Moles/Vol] 25.5 mmol/L Normal 21.0-32.0 [facility] Comment on above: Performed By: #### C ROME, BMP #### [facility] [address] [place] [address] Dr. Temi Lux Creatinine [Mass/Vol] 1.10 mg/dL Normal 0.70-1.30 [facility] Comment on above: Performed By: #### C MADM, BMP #### [facility] [address] [address] [address] Temi Lux EGFR-AF BELIZEAN >60 Normal >=60 [facility] Comment on above: Performed By: #### C MADM, BMP #### [facility] [address] [address] [address] Temi Lux EGFR-NON AF BELIZEAN >60 Normal >=60 [facility] Comment on above: Performed By: #### C MADM, BMP #### [facility] [address] [address] [address] Temi Lux Glucose [Mass/Vol] 108 mg/dL Critically high 74-106 [facility] Comment on above: Performed By: #### C STEVENM, BMP #### [facility] [address] [address] [address] Temi Lux Potassium [Moles/Vol] 3.9 mmol/L Normal 3.5-5.1 [facility] Comment on above: Performed By: #### C ROME, BMP #### [facility] [address] [address] [address] Temi Lux Sodium [Moles/Vol] 139 mmol/L Normal 136-145 [facility] Comment on above: Performed By: #### C STEVENM, BMP #### [facility] [address] [address] [address] Temi Lux Urea nitrogen [Mass/Vol] 23.0 mg/dL Critically high 7.0-18.0 [facility] Comment on above: Performed By: #### C STEVENM, BMP #### [facility] [address] [address] [address] Temi Lux Urea nitrogen/Creatinine [Mass ratio] 20.9 mg/mg Normal [facility] Comment on above: Performed By: #### C STEVENM, BMP #### [facility] [address] [address] [address] Temi Lux XR CHEST 2 Von [...] BRENTON SALAS Date: 2021-12-16 23:05 Normal [facility] Covid-19 PCR (CVDTB)on 07-28 SARS-CoV-2 (COVID-19) RNA HERBERTH+probe Ql (Unsp spec) Not detected Normal NOT DETECTED [facility] Comment on above: Result Comment: This test is not yet approved or cleared by the [place] FDA. When there are no FDA-approved or cleared tests available, and other criteria are met, FDA can make tests available under an emergency access mechanism called an Emergency Use Authorization (EUA). The EUA for this test is supported by the [employer] of Health and Human Service's (HHS's) declaration [...] consistent with SARS-CoV-2. Performed By: #### [facility] #### [facility] [address] [address] [address] Temi Lux XR hand RT min 3V*on 021 XR hand RT min 3V* [facility] [employer] Other XR hand RT min 3V* [facility] [employer] Other XR hand RT min 3V* [address] [place] [address] [employer] Other XR hand RT min 3V* ZA William [address] [employer] Other XR hand RT min 3V* XRay Report [employer] Other XR hand RT min 3V* Signed [facility] Other XR hand RT min 3V* Patient: Danie Funes MR#: [id number] [facility] Other XR hand RT min 3V* 6091 [facility] Other XR hand RT min 3V* : 1990 Acct:[id number] [employer] Other XR hand RT min 3V* Age/Sex: 31 / M ADM Date: 04/12/21 [facility] Other XR hand RT min 3V* Loc: XDUCLY Room: pe: REG CLI [facility] Other XR hand RT min 3V* Attending Dr: Ingrid Montes [facility] Other XR hand RT min 3V* Ordering Provider: [facility] Other XR hand RT min 3V* Date of Service: 04/12/21 [facility] Other XR hand RT min 3V* XR/XR hand RT min 3V*: RIGHT HAND INJURY [facility] Other XR hand RT min 3V* Copies to: MIRTHA MONTES [employer] F[employer] MANAGERLingoda [facility] Other XR hand RT min 3V* CLINICAL HISTORY: Dsemond palacio fell yesterday catching himself with right hand on the underground. The [facility] Other XR hand RT min 3V* fingers were bent ba ck. Pain and swelling to the second and third distal metacarpals and over the [facility] Other XR hand RT min 3V* index and the middle fingers. Old fourth and fifth metacarpal fractures. [facility] Other XR hand RT min 3V* XR hand RT min 3V* [facility] Other XR hand RT min 3V* COMPARISON: None [facility] Other XR hand RT min 3V* FINDINGS: AP, latera l and oblique views of the right hand were obtained. A small cortical [facility] Other XR hand RT min 3V* fracture is demonstr ated at the base of the mid phalanx of the middle finger radially. Old fractures [facility] Other XR hand RT min 3V* are shown at the fou rth and fifth metacarpals. No other significant acute bone or joint [facility] Other XR hand RT min 3V* abnormalities are no pelon. Moderate soft tissue swelling is shown at the proximal portions of the [facility] Other XR hand RT min 3V* index and middle fingers. [facility] Other XR hand RT min 3V* X R/XR hand RT min 3V* [facility] Other XR hand RT min 3V* IMPRESSION: [facility] Other XR hand RT min 3V* A SMALL CORTICAL FRA CTURE AT THE BASE OF THE MID PHALANX OF THE MIDDLE FINGER. [facility] Other XR hand RT min 3V* Impression dictated by: Gregory Bhatt M.D.04/12/2021 11:30 AM [facility] Other XR hand RT min 3V* Dictation Location: [facility]--13 [facility] Other XR hand RT min 3V* Transcribed By: JORGE 04/12/21 1130 [facility] [employer] Other XR hand RT min 3V* Dictated By: Gregory Bhatt MD 04/12/21 112 [facility] [employer] Other XR hand RT min 3V* Signed By: [facility] Other XR hand RT min 3V* 04/12/21 1130 [facility] [employer] Other Vital Signs Date Time Vital Sign Value Performing Clinician Facility 10-29-2024 13:15-0400 Body height 193.04 cm PHYSICIAN NO [facility] 10-29-2024 13:15-0400 Body mass index (BMI) [Ratio] 29.1 kg/m2 PHYSICIAN NO [facility] 10-29-2024 13:15-0400 Body temperature 97.6 [degF] PHYSICIAN NO [facility] 10-29-2024 13:15-0400 Body weight 108.52 kg PHYSICIAN NO [facility] 10-29-2024 13:15-0400 Diastolic blood pressure 90 mm[Hg] PHYSICIAN NO [facility] 10-29-2024 13:15-0400 Heart rate 102 /min PHYSICIAN NO [facility] 10-29-2024 13:15-0400 Respiratory rate 18 /min PHYSICIAN NO [facility] 10-29-2024 13:15-0400 SaO2% (BldA) [Mass fraction] 98 % PHYSICIAN NO [facility] 10-29-2024 13:15-0400 Systolic blood pressure 137 mm[Hg] PHYSICIAN NO [facility] 09-09-2024 16:04-0400 Body mass index (BMI) [Ratio] 30.1 kg/m2 Esme Hdz MD Work Phone: [facility] 09-09-2024 16:04-0400 Body weight 106.32 kg Esme Hdz MD Work Phone: [facility] 09-09-2024 16:04-0400 Diastolic blood pressure 95 mm[Hg] Esme Hdz MD Work Phone: [facility] 09-09-2024 16:04-0400 Heart rate 97 /min Esme Hdz MD Work Phone: [facility] 09-09-2024 16:04-0400 SaO2% (BldA) [Mass fraction] 100 % Esme Hdz MD Work Phone: [facility] 09-09-2024 16:04-0400 Systolic blood pressure 143 mm[Hg] Esme Hdz MD Work Phone: [facility] 08-01-2024 19:16-0500 Diastolic blood pressure 73 mm[Hg] PHYSICIAN NO [facility] 08-01-2024 19:16-0500 Heart rate 73 /min PHYSICIAN NO [facility] 08-01-2024 19:16-0500 Respiratory rate 21 /min PHYSICIAN NO [facility] 08-01-2024 19:16-0500 SaO2% (BldA) [Mass fraction] 98 % PHYSICIAN NO [facility] 08-01-2024 19:16-0500 Systolic blood pressure 128 mm[Hg] PHYSICIAN NO [facility] 08-01-2024 18:39-0500 Body height 193.04 cm PHYSICIAN NO [facility] 08-01-2024 18:39-0500 Body weight 112 kg PHYSICIAN NO [facility] 08-01-2024 16:50-0500 Body temperature 98.4 [degF] PHYSICIAN NO [facility] 12-29-2023 12:33-0400 Body height 187.96 cm PHYSICIAN NO [facility] 12-29-2023 12:33-0400 Body mass index (BMI) [Ratio] 30.9 kg/m2 PHYSICIAN NO [facility] 12-29-2023 12:33-0400 Body temperature 97.8 [degF] PHYSICIAN NO [facility] 12-29-2023 12:33-0400 Body weight 109.42 kg PHYSICIAN NO [facility] 12-29-2023 12:33-0400 Diastolic blood pressure 85 mm[Hg] PHYSICIAN NO [facility] 12-29-2023 12:33-0400 Heart rate 101 /min PHYSICIAN NO [facility] 12-29-2023 12:33-0400 Respiratory rate 18 /min PHYSICIAN NO [facility] 12-29-2023 12:33-0400 SaO2% (BldA) [Mass fraction] 97 % PHYSICIAN NO [facility] 12-29-2023 12:33-0400 Systolic blood pressure 133 mm[Hg] PHYSICIAN NO [facility] 11-01-2023 14:22-0400 Diastolic blood pressure 86 mm[Hg] Esme Hdz MD Work Phone: [facility] 11-01-2023 14:22-0400 Systolic blood pressure 128 mm[Hg] Esme Hdz MD Work Phone: [facility] 11-01-2023 14:19-0400 Body mass index (BMI) [Ratio] 30.48 kg/m2 Esme Hdz MD Work Phone: [facility] 11-01-2023 14:19-0400 Body weight 107.68 kg Esme Hdz MD Work Phone: [facility] 11-01-2023 14:19-0400 Heart rate 92 /min Esme Hdz MD Work Phone: [facility] 11-01-2023 14:19-0400 SaO2% (BldA) [Mass fraction] 95 % Esme Hdz MD Work Phone: [facility] 10-20-2022 15:28-0400 Body weight 103.42 kg Esme Hdz MD Work Phone: [facility] 10-20-2022 15:28-0400 Diastolic blood pressure 85 mm[Hg] Esme Hdz MD Work Phone: [facility] 10-20-2022 15:28-0400 Heart rate 88 /min Esme Hdz MD Work Phone: [facility] 10-20-2022 15:28-0400 SaO2% (BldA) [Mass fraction] 98 % Esme Hdz MD Work Phone: [facility] 10-20-2022 15:28-0400 Systolic blood pressure 130 mm[Hg] Esme Hdz MD Work Phone: [facility] 10-20-2022 09:06-0400 Body height 188 cm Mri (I-Stat/1.5t) Work Phone: [facility] 10-20-2022 09:06-0400 Body weight 103.42 kg Mri (I-Stat/1.5t) Work Phone: [facility] 10-20-2022 09:06-0400 Diastolic blood pressure 81 mm[Hg] Mri (I-Stat/1.5t) Work Phone: [facility] 10-20-2022 09:06-0400 Heart rate 97 /min Mri (I-Stat/1.5t) Work Phone: [facility] 10-20-2022 09:06-0400 Systolic blood pressure 143 mm[Hg] Mri (I-Stat/1.5t) Work Phone: [facility] 04-12-2021 11:25-0400 Body height 186.69 cm Mirtha Montes Other [facility] Other 04-12-2021 11:25-0400 Body mass index (BMI) [Ratio] 28.5 kg/m2 Mirtha Montes Other [facility] Other 04-12-2021 11:25-0400 Body temperature 98.6 [degF] Mirtha Montes Other [facility] Other 04-12-2021 11:25-0400 Body weight 99.34 kg Mirtha Montes Other [facility] Other 04-12-2021 11:25-0400 Diastolic blood pressure 86 mm[Hg] Mirtha Montes Other [facility] Other 04-12-2021 11:25-0400 Respiratory rate 18 /min Mirtha Montes Other [facility] Other 04-12-2021 11:25-0400 SaO2% (BldA) [Mass fraction] 99 % Mirtha Montes Other [facility] Other 04-12-2021 11:25-0400 Systolic blood pressure 140 mm[Hg] Mirtha Montes Other [facility] Other Encounters Encounter Date Encounter Type Care Provider Facility Start: 01-30-2025 End: 01-30-2025 ambulatory Lavon ENRIQUEZ [facility] Start: 01-30-2025 End: 01-30-2025 Patient encounter procedure Lavon ENRIQUEZ [facility] Start: 01-09-2025 ambulatory Lavon ENRIQUEZ Facility : [facility] Start: 10-29-2024 End: 10-29-2024 ambulatory PHYSICIAN RAMONA [facility] Work Phone: Start: 10-29-2024 End: 10-29-2024 Patient encounter procedure PHYSICIAN RAMONA [facility] Work Phone: Start: 10-10-2024 End: 10-10-2024 Refill Esme Hdz MD Work Phone: Cardiology Comment on above: Refill Request Start: 09-09-2024 End: 09-09-2024 ambulatory ESME HDZ Facility:[facility] Start: 09-09-2024 End: 09-09-2024 Patient encounter procedure Esme Hdz MD Work Phone: Cardiology Comment on above: Dysplastic tricuspid valve (Primary Dx); S/P tricuspid valve repair; Primary hypertension Start: 09-09-2024 End: 09-09-2024 ambulatory ESME HDZ Facility:[facility] Start: 08-01-2024 End: 08-01-2024 Emergency department patient visit PHYSICIAN NO [facility] Work Phone: Start: 07-29-2024 End: 08-12-2024 Telephone encounter Johnna Mitchell [facility] HOST/HOSTESS[facility] Work Phone: [facility] Start: 06-18-2024 Non-patient / Non-visit PHYSICIAN NO [facility] Work Phone: Start: 06-17-2024 End: 06-17-2024 Telephone encounter Esme Hdz MD Work Phone: Cardiology Comment on above: Patient Question Start: 12-29-2023 End: 12-29-2023 ambulatory PHYSICIAN NO [facility] Work Phone: Start: 12-29-2023 End: 12-29-2023 Patient encounter procedure PHYSICIAN NO [facility] Work Phone: Start: 11-01-2023 End: 11-01-2023 ambulatory ESME FUCHS Facility:[facility] Start: 11-01-2023 End: 11-01-2023 Patient encounter procedure Esme Hdz MD Work Phone: Cardiology Comment on above: Dysplastic tricuspid valve (Primary Dx); S/P tricuspid valve repair; Primary hypertension; Obesity, Class I, BMI 30-34.9 Start: 11-01-2023 End: 11-01-2023 ambulatory ESME FUCHS Facility:[facility] Start: 11-01-2023 End: 11-01-2023 [facility] Facility:[facility] Start: 10-20-2022 End: 10-20-2022 Orders Only Bernadette [...] outpatient vi sit 15 minutes Mirtha Montes [facility] Procedures Date Procedure Procedure [...] flow mapping Esme Hdz MD Work Phone: Appendectomy Lavon ENRIQUEZ Open heart surgery Lavon HAND Repair of heart valve Jamison ENRIQUEZ Plan of Treatment Date Care Activity Detail Author Start: 09-12-2025 End: 12-12-2025 Basic metabolic 2000 panel - Serum or Plasma BASIC METABOLIC PANEL Lab Routine Dysplastic tricuspid valve Expected: 09/12/2025, Expires: 12/12/2025 [facility] Comment on above: Expected: 09/12/2025 , Expires: 12/12/2025 Start: 09-12-2025 End: 12-12-2025 CBC panel - Blood by Automated count COMPLETE BLOOD COUNT Lab Routine Dysplastic tricuspid valve Expected: 09/12/2025, Expires: 12/12/2025 [facility] Work Phone: Comment on above: Expected: 09/12/2025 , Expires: 12/12/2025 Start: 09-12-2025 End: 12-12-2025 Natriuretic peptide.B prohormone N-Terminal [Mass/volume] in Serum or Plasma NT PRO BNP Lab Routine Dysplastic tricuspid valve Expected: 09/12/2025, Expires: 12/12/2025 [facility] Comment on above: Expected: 09/12/2025 , Expires: 12/12/2025 Start: 11-04-2024 End: 02-03-2025 CBC panel - Blood by Automated count COMPLETE BLOOD COUNT Lab Routine Dysplastic tricuspid valve Expected: 11/04/2024, Expires: 02/03/2025 [facility] Comment on above: Expected: 11/04/2024 , Expires: 02/03/2025 Start: 11-04-2024 End: 02-03-2025 Comprehensive metabolic 2000 panel - Serum or Plasma COMPREHENSIVE METABOLIC PANEL Lab Routine Dysplastic tricuspid valve Expected: 11/04/2024, Expires: 02/03/2025 [facility] Work Phone: Comment on above: Expected: 11/04/2024 , Expires: 02/03/2025 Start: 11-04-2024 End: 02-03-2025 Lipid 1996 panel - Serum or Plasma LIPID PANEL BASIC Lab Routine Dysplastic tricuspid valve Expected: 11/04/2024, Expires: 02/03/2025 [facility] Comment on above: Expected: 11/04/2024 , Expires: 02/03/2025 Start: 02-25-2024 Covid-19 Vaccine () Covid-19 Vaccine ( season) [facility] Start: 02-25-2024 Influenza vaccination [facility] Start: 10-25-2023 End: 12-25-2023 CBC panel - Blood by Automated count CBC Lab Routine Dysplastic tricuspid valve Expected: 10/25/2023, Expires: 12/25/2023 [facility] Work Phone: Comment on above: Expected: 10/25/2023 , Expires: 12/25/2023 Start: 10-25-2023 End: 12-25-2023 Comprehensive metabolic 2000 panel - Serum or Plasma COMP METABOLIC PANEL Lab Routine Dysplastic tricuspid valve Expected: 10/25/2023, Expires: 12/25/2023 [facility] Work Phone: Comment on above: Expected: 10/25/2023 , Expires: 12/25/2023 Start: 10-25-2023 ECG COMPLETE ECG COMPLETE E CG Routine Dysplastic tricuspid valve Expected: 10/25/2023 [facility] Work Phone: Comment on above: Expected: 10/25/2023 Start: 10-25-2023 ECHO SPECIALIST COMP JUAN JOSE ADULT CONGENITAL ECHO SPECIALIST COMPLEX ADULT CONGENITAL Cardiology Routine Dysplastic tricuspid valve Expected: 10/25/2023 [facility] Work Phone: Comment on above: Expected: 10/25/2023 Start: 10-25-2023 EXERCISE STRESS ECG METABOLIC (WITHOUT IMAGING) EXERCISE STRESS ECG METABOLIC (WITHOUT IMAGING) Cardiology Routine Dysplastic tricuspid valve Expected: 10/25/2023 [facility] Work Phone: Comment on above: Expected: 10/25/2023 Start: 10-25-2023 End: 12-25-2023 LIPID PANEL, NONFASTING LIPID PANEL, NONFASTING Lab Routine Dysplastic tricuspid valve Expected: 10/25/2023, Expires: 12/25/2023 [facility] Work Phone: Comment on above: Expected: 10/25/2023 , Expires: 12/25/2023 Start: 10-25-2023 End: 12-25-2023 Natriuretic peptide.B prohormone N-Terminal [Mass/volume] in Serum or Plasma NT PRO BNP Lab Routine Dysplastic tricuspid valve Expected: 10/25/2023, Expires: 12/25/2023 [facility] Work Phone: Comment on above: Expected: 10/25/2023 , Expires: 12/25/2023 Start: 06-26-2023 Behavioral Health Screening Behavioral Health Screening [facility] Start: 02-24-2023 Covid-19 Vaccine () Covid-19 Vaccine ( season) [facility] Start: 02-24-2023 Influenza vaccination INFLUENZ A (Season Ended) [facility] Start: 06-26-2022 DEPRESSION ASSESSMENT DEPRESSION ASS ESSMENT [facility] Start: 02-24-2022 Influenza vaccination INFLUENZA (#1) [facility] Start: 06-26-2021 DEPRESSION ASSESSMENT DEPRESSION ASS ESSMENT [facility] Start: 2009 DTaP,Tdap and Td Vac cines (1 - Tdap) DTaP,Tdap and Td Vaccines (1 - Tdap) [facility] Start: 2009 Hepatitis B Vaccine (1 of 3 - 19+ 3-dose series) Hepatitis B Vaccine (1 of 3 - 19+ 3-dose series) [facility] Start: 2009 Urine microalbumin profile [facility] Start: 2008 Adult BMI Screening Adult BMI Screen ing [facility] Start: 2008 ANNUAL PCP TEAM MATERIALS RECYCLER CELESTINO DISEASE VISIT ANNUAL PCP TEAM CHRONIC DISEASE VISIT [facility] Start: 2008 Anxiety Screening Anxiety Screening [facility] Start: 2008 BP CONTROLLED (<130/80) BP CONTROLLE D (<130/80) [facility] Start: 2008 Depression Screening Depression Scre [facility] Start: 2008 HEPATITIS C SCREENING HEPATITIS C [facility] Start: 2008 Hepatitis C screening Hepatitis C [facility] Start: 2008 HIV SCREENING HIV SCREENING [facility] Start: 2008 HIV screening HIV Screening [facility] Start: 2002 Depression Screening Depression Scre [facility] Start: 2002 Tobacco Screening Tobacco Screening [facility] Start: 1996 PNEUMOCOCCAL (1 - PCV) PNEUMOCOCCAL (1 - PCV) [facility] Start: 1990 COVID-19 VACCINE (#1) COVID-19 VACCI NE (#1) [facility] Start: 1990 HEPATITIS B (1 of 3 - 3-dose series) HEPATITIS B (1 of 3 - 3-dose series) [facility] End: 05-30-2023 ECG COMPLETE ECG COMPLETE ECG Routine S/P tricuspid valve repair 1 Occurrences starting 05/30/2022 until 05/30/2023 [facility] Work Phone: Comment on above: 1 Occurrences starti ng 05/30/2022 until 05/30/2023 End: 11-04-2024 ECG COMPLETE ECG COMPLETE ECG Routine Dysplastic tricuspid valve 1 Occurrences starting 11/05/2023 until 11/04/2024 [facility] Comment on above: 1 Occurrences starti ng 11/05/2023 until 11/04/2024 End: 09-12-2025 ECG COMPLETE ECG COMPLETE ECG Routine Dysplastic tricuspid valve 1 Occurrences starting 09/12/2024 until 09/12/2025 [facility] Comment on above: 1 Occurrences starti ng 09/12/2024 until 09/12/2025 End: 11-04-2024 ECHO SPECIALIST COMPLEX ADULT CONGENITAL ECHO SPECIALIST COMPLEX ADULT CONGENITAL Cardiology Routine Dysplastic tricuspid valve 1 Occurrences starting 11/05/2023 until 11/04/2024 [facility] Comment on above: 1 Occurrences starti ng 11/05/2023 until 11/04/2024 End: 09-12-2025 ECHO SPECIALIST COMPLEX ADULT CONGENITAL ECHO SPECIALIST COMPLEX ADULT CONGENITAL Cardiology Routine Dysplastic tricuspid valve 1 Occurrences starting 09/12/2024 until 09/12/2025 [facility] Comment on above: 1 Occurrences starti ng 09/12/2024 until 09/12/2025 End: 05-30-2023 Echocardiography ECHO Cardiology Routine S/P tricuspid valve repair 1 Occurrences starting 05/30/2022 until 05/30/2023 [facility] Work Phone: Comment on above: 1 Occurrences starti ng 05/30/2022 until 05/30/2023 End: 09-06-2023 Echocardiography ECHO Cardiology Routine Dysplastic tricuspid valve 1 Occurrences starting 09/05/2022 until 09/06/2023 [facility] Work Phone: Comment on above: 1 Occurrences starti ng 09/05/2022 until 09/06/2023 End: 11-19-2023 MRA CHEST CARDIOVASCULAR WO IVCON MRA CHEST CARDIOVASCULAR WO IVCON Radiology Routine Dysplastic tricuspid valve 1 Occurrences starting 10/20/2022 until 11/19/2023 [facility] Work Phone: Comment on above: 1 Occurrences starti ng 10/20/2022 until 11/19/2023 End: 10-20-2022 MRA CHEST CARDIOVASCULAR WO IVCON MRA CHEST CARDIOVASCULAR WO IVCON Radiology Routine Dysplastic tricuspid valve 1 Occurrences starting 10/20/2022 until 10/20/2022 [facility] Work Phone: Comment on above: 1 Occurrences starti ng 10/20/2022 until 10/20/2022 End: 11-19-2023 MRI CARDIAC MORPH FUNC WO IVCON MRI CARDIAC MORPH FUNC WO IVCON Radiology Routine Cardiomyopathy, unspecified type (HCC) 1 Occurrences starting 10/20/2022 until 11/19/2023 [facility] Work Phone: Comment on above: 1 Occurrences starti ng 10/20/2022 until 11/19/2023 MRI CARDIAC MORPH FU NC WO IVCON MRI CARDIAC MORPH FUNC WO IVCON Radiology Routine Cardiomyopathy, unspecified type (HCC) 10/20/2022 10:13 AM EDT [facility] Work Phone: End: 10-20-2022 MRI CARDIAC MORPH FUNC WO/W IVCON MRI CARDIAC MORPH FUNC WO/W IVCON Radiology Routine Dysplastic tricuspid valve 1 Occurrences starting 10/20/2022 until 10/20/2022 [facility] Work Phone: Comment on above: 1 Occurrences starti ng 10/20/2022 until 10/20/2022 Patient Education Chest pain [facility] Work Phone: Patient referral [facility] Work Phone: XR Hand - right GE 3 Views [facility] XR Radius and Ulna - right 2 Views [facility] Immunizations Immunization Date Immunization Notes Care Provider Chani kauffman 06-04-2003 influenza virus vaccine, unspecified formulation Lavonberenice ENRIQUEZ [facility] 02-14-2003 hepatitis B vaccine, pediatric or pediatric/adolescent dosage Lavon ENRIQUEZ [facility] 02-14-2003 measles, mumps and rubella virus vaccine Lavon ENRIQUEZ [facility] 02-22-1993 DTaP, unspecified formulation [place] [facility] 02-22-1993 Hib, unspecified formulation Lavon ENRIQUEZ [facility] 02-22-1993 poliovirus vaccine, unspecified formulation Lavon ENRIQUEZ [facility] 04-10-1992 measles, mumps and rubella virus vaccine Lavon ENRIQUEZ [facility] 1990 Hib, unspecified formulation Lavon ENRIQUEZ [facility] 1990 poliovirus vaccine, unspecified formulation Lavon [employer] [facility] 1990 poliovirus vaccine, unspecified formulation Lavon [employer] [facility] Payers Date Payer Category Payer Self-pay [id number] 2023 Private Health Insurance [id number] 2023 Unknown [id number] 2019 Unknown [id number] 1990 Unknown [id number] 1990 Unknown [id number] 1990 Unknown [id number] 1990 Unknown [id number] 1990 Unknown [id number] 1959 [facility] [id number] Private Health Insurance [facility] Claims-[facility] [id number] Unknown [id number] Unknown [id number] Social History Date Type Detail Facility Unknown if ever smoked [facility] Other Start: 05-07-2020 End: 09-09-2024 Sex Assigned At [facility] Other Start: 03-21-2018 End: 06-17-2018 Tobacco smoking status ORIS Smokes tobacco daily [facility] Start: 05-09-2011 End: 03-25-2023 History of tobacco use Cigarette Smoker [facility] Start: 03-21-2018 End: 09-09-2024 Cigarettes smoked current (pack per day) - Reported 0.5 [facility] Start: 03-21-2018 End: 11-01-2023 Tobacco use and exposure Smokeless tobacco non-user [facility] Start: 08-18-2021 Alcohol intake Ex-drinker (finding) [facility] Start: 05-07-2020 History SDOH Alcohol Frequency 5 [facility] Start: 05-07-2020 History SDOH Alcohol Std Drinks 2 [facility] Start: 05-07-2020 History SDOH Alcohol Binge 4 [facility] Start: 10-15-2020 Alcohol Comment Quit 07/2020 [facility] Start: 1990 Sex Assigned At Not on file [facility] Start: 06-30-2022 End: 09-09-2024 Alcohol intake Current drinker of alcohol (finding) [facility] Start: 06-30-2022 Alcohol Comment Social [facility] Start: 11-01-2023 [facility] Start: 05-09-2011 End: 03-25-2023 History of tobacco use Current smoker [facility] How often to you hav e a drink containing alcohol? 4 or more times a week [facility] How many standard drinks containing alcohol do you have on a typical day? 3 or 4 [facility] How often do you hav e 6 or more drinks on 1 occasion? Weekly [facility] National Score (1-10 0), lower number is lower risk 59 [facility] Start: 1990 Sex Assigned At Male F [facility] Tobacco smoking stat [facility] Unknown if ever smoked [facility] Work Phone: Start: 08-19-2013 End: 08-01-2024 Sex Male (finding) [facility] Start: 06-17-2018 Alcohol Comment 3 times a week [facility] [employer] [facility] Tobacco vape Tobacco Use :. Current vaping or e-cigarette use Smokeless Tobacco Use:. Vaping [facility] Tobacco smoking status [facility] Medical Equipment Procedure Code Equipment Code Equipment Origin al Text Equipment Identifier Dates Jason Crowe Classic 34mm 39.2mm 32.3mm Oval Titanium Silicone - [id number] Start: 07-29-2016 Goals Date Patient Goal Desired Activity /State Personal health goal Functional Status Date Assessment Result Facility 08-02-2016 Are you deaf, or do you have serious difficulty hearing No 08/02/2016 1:52 PM Celestino Thapa APRN.CNP No [facility] Work Phone: 08-02-2016 Are you blind, or do you have serious difficulty seeing, even when wearing glasses No 08/02/2016 1:52 PM Celestino Thapa APRN.CNP No [facility] 08-02-2016 Do you have serious difficulty walking or climbing stairs No 08/02/2016 1:52 PM Celestino Thapa APRN.CNP No [facility] 08-02-2016 Do you have difficul ty dressing or bathing No 08/02/2016 1:52 PM Celestino Thapa APRN.CNP No [facility] 08-02-2016 Because of a physica l, mental, or emotional condition, do you have difficulty doing errands alone such as visiting a physician's office or shopping No 08/02/2016 1:52 PM Celestino Thapa APRN.CNP No [facility] Mental Status Date Assessment Result Facility 08-02-2016 Because of a physica l, mental, or emotional condition, do you have serious difficulty concentrating, remembering, or making decisions No 08/02/2016 1:52 PM Celestino Thapa APRN.CNP No [facility] Clinical Notes 07-30-2016 to 01-30-2025 Telephone Encounter - Catarina Ferreira - 10/10/2024 4:48 PM EDTTelephone Encounter - Catarina Ferreira - 10/10/2024 4:48 PM Esme Norton MD - 09/09/2024 3:45 PM EDT Note Date & Type Note Facility 01-30-2025 Hospital Discharg e instructions Patient Education 01/30/2025 16:14:44 How to Take [...] may recommend a sitz bath to help: Relieve pain and discomfort after delivering a baby. Relieve pain and itching from hemorrhoids or anal fissures. Relieve pain after certain surgeries. Relax muscles that are sore or tight. How to take a sitz bath Take 2 4 sitz baths a day, or as many as told by your health care provider. Bathtub sitz bath To take a sitz bath in a bathtub: 1.Partially fill a bathtub with warm water. The water should be deep enough to cover your hips and buttocks when you are sitting in the bathtub. 2.Follow your health care provider's instructions if you are told to put medicine in the water. 3.Sit in the water. Open the bathtub drain a little, and leave it open during your bath. 4.Turn on the warm water again, enough to replace the water that is draining out. Keep the water running throughout your bath. This helps keep the water at the right level and temperature. 5.Soak in the water for 15 20 minutes, or as long as told by your health care provider. 6.When you are done, be careful when you stand up. You may feel dizzy. 7.After the sitz bath, pat yourself dry. Do not rub your skin to dry it. [id number] sitz bath To take a sitz bath with an qnio-ieo-iervjv basin: 1.Follow the vp site's instructions. 2.Fill the basin with warm water. 3.Follow your health care provider's instructions if you were told to put medicine in the water. 4.Sit on the seat. Make sure the water covers your buttocks and perineum. 5.Soak in the water for 15 20 minutes, or as long as told by your health care provider. 6.After the sitz bath, pat yourself dry. Do not rub your skin to dry it. 7.Clean and dry the basin between uses. 8.Discard the basin if it cracks, or according to the vp site's instructions. Contact a health care provider if: Your pain or itching gets worse. Stop doing sitz baths if your symptoms get worse. You have new symptoms. Stop doing sitz baths until you talk with your health care provider. Summary A sitz bath is a warm water bath in which the water only comes up to your hips and covers your buttocks. Your health care provider may recommend a sitz bath to help relieve pain and discomfort after delivering a baby, relieve pain and itching from hemorrhoids or anal fissures, relieve pain after certain surgeries, or help to relax muscles that are sore or tight. Take 2 4 sitz baths a day, or as many as told by your health care provider. Soak in the water for 15 20 minutes. Stop doing sitz baths if your symptoms get worse. This information is not intended to replace advice given to you by your health care provider. Make sure you discuss any questions you have with your health care provider. Document Revised: 09/13/2022 Document Reviewed: 09/13/2022 [employer] Patient Education 2023 [email or web address]. 01/30/2025 16:14:42 Testicular Self-Exam Testicular Self-Exam A self-examination of your testicles (testicular self-exam) involves looking at and feeling your testicles for abnormal lumps or swelling. Several things can cause swelling, lumps, or pain in your testicles, including: Injuries. Inflammation. Infection. Buildup of fluids around the testicle (hydrocele). Twisted testicles (testicular torsion). Testicular cancer. You may be at risk for this if you have: ?A testicle that has not descended. ?Previously had testicular cancer. ?A family history of testicular cancer. General tips It is easiest to do a self-exam during or after a warm bath or shower. Testicles are harder to examine when you are cold because the muscles attached to the testicles retract and pull them up higher or into the abdomen. A normal testicle is egg-shaped and feels firm. It is smooth and not tender. It is normal to feel a firm, spaghetti-like cord at the back of your testicle. This is the spermatic cord. Do a self-exam once a month. How to do a testicular self-exam 1.Stand and hold your penis away from your body. 2.Look at each testicle to check for changes in appearance, such as swelling or changes in size or shape. 3.Roll each testicle between your thumb and forefinger, feeling the entire testicle. Feel for: Lumps. Swelling. Discomfort. 4.Check for swelling or tender bumps in the groin area. Your groin is where your lower belly (abdomen) meets your upper thighs. Contact a health care provider if: You find a bump or lump. This may be a small, hard bump that is the size of a pea. You have swelling, pain, or soreness in your testicle area. You see or feel any other changes in your testicles. This information is not intended to replace advice given to you by your health care provider. Make sure you discuss any questions you have with your health care provider. Document Revised: 03/27/2023 Document Reviewed: 03/27/2023 [employer] Patient Education 2023 [email or web address]. Follow Up Care 01/09/2025 11:34:38 With:PALMA ALCANTARA, Lavon Alcala, URL Address: [facility] [address] , [place] [address]- When: Unknown [facility] 01-30-2025 Note Patient Education Obstetrics and Gynecology How to Take a Sitz Bath A [...] How to take a sitz bath Take 2?4 sitz baths a day, or as many as told by your health care provider. Bathtub sitz bath To take a sitz bath in a bathtub: 1. Partially fill a bathtub with warm water. The water should be deep enough to cover your hips and buttocks when you are sitting in the bathtub. [...] temperature. 5. Soak in the water for 15?20 minutes, or as long as told by your health care provider. 6. When you are done, be careful when you stand up. You may feel dizzy. 7. After the sitz bath, pat yourself dry. Do not rub your skin to dry it. Punl-kve-xohlkp sitz bath To take a sitz bath with an eioq-gbb-pdhlfu basin: 1. Follow the vp site's instructions. 2. Fill the basin with warm water. 3. Follow your health care provider's instructions if you were told to put medicine in the water. 4. Sit on the seat. Make sure the water covers your buttocks and perineum. 5. Soak in the water for 15?20 minutes, or as long as told by your health care provider. 6. After the sitz bath, pat yourself dry. Do not rub your skin to dry it. 7. Clean and dry the basin between uses. 8. Discard the basin if it cracks, or according to the vp site's instructions. Contact a health care provider if: [...] that are sore or tight. ??? Take 2?4 sitz baths a day, or as many as told by your health care provider. Soak in the water for 15?20 minutes. ??? Stop doing sitz baths if your symptoms get worse. This information is not intended to replace advice given to you by your health care provider. Make sure you discuss any questions you have with your health care provider. Document Revised: 09/13/2022 Document Reviewed: 09/13/2022 Elsevier Patient Education ? 2023 [email or web address]. Urology Testicular Self-Exam A self-examination of your testicles [...] at risk for this if you have: ? A testicle that has not descended. ? Previously had testicular cancer. ? A family history of testicular cancer. General [...] such as swelling or changes in size or shape. 3. Roll each testicle between your thumb and forefinger, feeling the entire testicle. Feel for: ??? Lumps. ??? Swelling. ??? Discomfort. 4. Check for swelling or tender bumps in the groin area. Your groin is where your lower belly (abdomen) meets your upper thighs. Contact a health care provider if: ? (more content not included)... [facility] 10-10-2024 Telephone encounter Note Pharmacy used [employer] to request a refill on the medication(s) below: Requested Prescriptions Pending Prescriptions Disp Refills lisinopril (ZESTRIL) 10 mg tablet [Pharmacy Med Name: LISINOPRIL 10 MG TABLET] 90 tablet 3 Sig: TAKE 1 TABLET BY MOUTH EVERY DAY Patient last seen: 09/09/2024 Catarina Ferreira Senior Center Manager II October 10, 2024 4:48 PM [facility] 10-10-2024 Miscellaneous Notes Pharmacy used [employer] to request a refill on the medication(s) below: Requested Prescriptions Pending Prescriptions Disp Refills lisinopril (ZESTRIL) 10 mg tablet [Pharmacy Med Name: LISINOPRIL 10 MG TABLET] 90 tablet 3 Sig: TAKE 1 TABLET BY MOUTH EVERY DAY Patient last seen: 09/09/2024 Catarina Ferreira Senior Center Manager II October 10, 2024 4:48 PM documented in this encounter [facility] 09-09-2024 History of Presen t illness Narrative Images from the original note were not included. [facility] [place] ADULT CONGENITAL HEART DISEASE [facility] OUTPATIENT VISIT DATE September 09, 2024 OUTPATIENT VISIT TYPE ESTABLISHED PRIMARY CARE PHYSICIAN: Carlos Arceo Sr. [address] [place] [address] CHIEF COMPLAINT: Follow up CONGENITAL CARDIAC HISTORY: [...] Procedure Laterality Date HEART CATHETERIZATION 02/2016 at [facility] HEART SURGERY HX 07/29/2016 s/p sternotomy, TV [...] OF 55%. [place] [address], POOR FUNCTIONAL CAPACITY FOR AGE AND GENDER. [...] which included preparing to see the patient, tgui-[id number] patient care, completing clinical documentation, obtaining and/or reviewing separately obtained history, performing a medically appropriate examination, counseling and educating the patient/family/caregiver, ordering medications, tests, or procedures, communicating with other HCPs (not separately reported), independently interpreting results (not separately reported), and care coordination (not separately reported). Esme Hdz MD Adult Congenital Heart Disease [facility] [place] [facility] Desk [id number] Appointments: [phone] documented in this encounter [facility] 09-09-2024 Note HNO ID: [id number] Author: ESME HDZ MD Service: ? Author Type: Physician Type: [place] Notes Filed: 09/12/2024 17:08 Note Text: [facility] [place] ADULT CONGENITAL HEART DISEASE [facility] OUTPATIENT VISIT DATE September 09, 2024 OUTPATIENT VISIT TYPE ESTABLISHED PRIMARY CARE PHYSICIAN: Carlos Arceo Sr. [address] [place] [address] CHIEF COMPLAINT: Follow up CONGENITAL CARDIAC HISTORY: [...] Procedure Laterality Date HEART CATHETERIZATION 02/2016 at [facility] HEART SURGERY HX 07/29/2016 s/p sternotomy, TV [...] Joint swelling NEUROLOGIC/PSYCHIATRIC: Negative for: Weakness, Paralysis, Numbnes (more content not included)... [facility] 08-01-2024 Radiology Diagnostic study note [facility] Main [place] [address] [place] [address] CT Scan Report Signed Patient: Allie Funes MR#: [id number] : 1990 Acct:[id number] Age/Sex: 34 / M ADM Date: 5 Loc: ER Room: Type: [facility] ER Attending Dr: Copies to: Allen Cheung [...] Zachary Castle M.D.08/01/2024 6:05 PM Dictation Location: [place] [address] Transcribed By: [facility] 08/01/241804 Dictated By: Zachary Castle DO 08/01/241801 Signed By: 08/01/24 180 [facility] 07-29-2024 Miscellaneous Notes Is looking for new pcp, his sister recommend you as she sees you. Will you accept? Yes. Not until August LM on VM LM on VM documented in this encounter [facility] 07-29-2024 Telephone encounter Note Is looking for new pcp, his sister recommend you as she sees you. Will you accept? [facility] 07-29-2024 Telephone encounter Note Yes. Not until August [facility] Work Phone: 07-29-2024 Telephone encounter Note LM on VM [facility] 07-29-2024 Telephone encounter Note LM on VM [facility] 06-17-2024 Telephone encounter Note Pt was in [...] him. Pt verbalized understanding. Shakira Cardenas RN [facility] 06-17-2024 Miscellaneous Notes Pt was in [...] RN June 17, 2024 Patient Contact Number: [phone] Patient last seen within the last year: [...] Yes Erica Maldonado documented in this encounter [facility] 06-17-2024 Telephone encounter Note June 17, 2024 Patient Contact Number: [phone] Patient last seen within the last year: [...] next three business days. Yes Erica Maldonado [facility] 11-01-2023 History of Presen t illness Narrative Images from the original note were not included. [facility] [place] ADULT CONGENITAL HEART DISEASE [facility] OUTPATIENT VISIT DATE November 01, 2023 OUTPATIENT VISIT TYPE ESTABLISHED PRIMARY CARE PHYSICIAN: Carlos Arceo Sr. [address] [place] [address] CHIEF COMPLAINT: Follow up CONGENITAL CARDIAC HISTORY: [...] Procedure Laterality Date HEART CATHETERIZATION 02/2016 at [facility] HEART SURGERY HX 07/29/2016 s/p sternotomy, TV [...] OF 55%. [place] [address], POOR FUNCTIONAL CAPACITY FOR AGE AND GENDER. [...] which included preparing to see the patient, [id number] patient care, completing clinical documentation, obtaining and/or reviewing separately obtained history, performing a medically appropriate examination, counseling and educating the patient/family/caregiver, ordering medications, tests, or procedures, communicating with other HCPs (not separately reported), independently interpreting results (not separately reported), and care coordination (not separately reported). Esme Hdz MD Adult Congenital Heart Disease [facility] [place] [facility] Desk J2-4 Appointments: [phone] documented in this encounter [facility] 11-01-2023 Note HNO ID: [id number] Author: ESME HDZ MD Service: ? Author Type: Physician Type: Progress Notes Filed: 11/05/2023 16:22 Note Text: [facility] [place] ADULT CONGENITAL HEART DISEASE CLINIC [facility] OUTPATIENT VISIT DATE November 01, 2023 OUTPATIENT VISIT TYPE ESTABLISHED PRIMARY CARE PHYSICIAN: Carlos Arceo Sr. [address] [place] [address] CHIEF COMPLAINT: Follow up CONGENITAL CARDIAC HISTORY: [...] Procedure Laterality Date HEART CATHETERIZATION 02/2016 at [facility] HEART SURGERY HX 07/29/2016 s/p sternotomy, TV [...] bilaterally. Neuro: Or (more content not included)... [facility] 10-20-2022 History of Presen t illness Narrative Images from the original note were not included. [facility] [place] ADULT CONGENITAL HEART DISEASE CLINIC [facility] OUTPATIENT VISIT DATE October 20, 2022 OUTPATIENT VISIT TYPE ESTABLISHED PRIMARY CARE PHYSICIAN: Carlos Arceo Sr. [address] [place] [address] CHIEF COMPLAINT: Follow up CONGENITAL CARDIAC HISTORY: [...] Procedure Laterality Date HEART CATHETERIZATION 02/2016 at [facility] HEART SURGERY HX 07/29/2016 s/p sternotomy, TV [...] OF 55%. [place] [address], POOR FUNCTIONAL CAPACITY FOR AGE AND GENDER. [...] which included preparing to see the patient, [id number] patient care, completing clinical documentation, obtaining and/or reviewing separately obtained history, performing a medically appropriate examination, counseling and educating the patient/family/caregiver, ordering medications, tests, or procedures, communicating with other HCPs (not separately reported), independently interpreting results (not separately reported), and care coordination (not separately reported). Esme Hdz MD Adult Congenital Heart Disease [facility] [place] [facility] Desk J2-4 Appointments: [phone] documented in this encounter [facility] 10-20-2022 History of Presen t illness [...] 2022 10:13 AM documented in this encounter [facility] 07-04-2022 Miscellaneous Notes Spoke to patients mom aware of appointments and let her know reminder has been sent in the mail Erica Maldonado July 04, 2022 10:43 AM documented in this encounter [facility] 04-12-2021 Evaluation note Encounter Date Diagnosis [...] today. 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 documented as of this encounter (statuses as of 07/04/2022) [facility] History of Past illness Narrative* Problem Noted Date Resolved Date Anxiety 07/30/2016 08/01/2016 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 Palpitations 05/11/2006 10/16/2008 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 documented as of this encounter (statuses as of 09/05/2022) [facility] History of Past illness Narrative* Problem Noted Date Resolved Date Anxiety 07/30/2016 08/01/2016 Congenital anomaly of heart 10/16/200811/2016 Palpitations 05/11/2006 10/16/2008 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 documented as of this encounter (statuses as of 10/20/2022) [facility] History of Past illness Narrative* Problem Noted Date Resolved Date Anxiety 07/30/2016 08/01/2016 Congenital anomaly of heart 10/16/200811/2016 Palpitations 05/11/2006 10/16/2008 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 documented as of this encounter (statuses as of 10/21/2022) [facility] History of Past illness Narrative* Problem Noted Date Resolved Date Anxiety 07/30/2016 08/01/2016 Congenital anomaly of heart 10/16/200811/2016 Palpitations 05/11/2006 10/16/2008 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 documented as of this encounter (statuses as of 10/25/2022) [facility] No data available for this section [facility] evaluation note* Diagnosis S/P tricuspid valve repair- Primary Other postprocedural status [facility] 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 [facility] Diagnosis Cardiomyopathy, unspecified type (HCC) [facility] 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 [facility] Diagnosis Dysplastic tricuspid valve Other specified congenital anomaly of heart Cardiomyopathy, unspecified type (HCC) [facility] 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 tricuspid valve repair Other postprocedural status documented in this encounter [facility] note* 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 tricuspid valve repair Other postprocedural status Primary hypertension Unspecified essential hypertension Obesity, Class I, BMI 30-34.9 Obesity, unspecified documented in this encounter [facility] noteNo assessment information [facility]Ch[facility] Work Phone: Evaluation note* Diagnosis Onset Date Resolution Status Contusion of hand, right acu te [facility] Work Phone: Evaluation note* 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 tricuspid valve repair Other postprocedural status Primary hypertension Unspecified essential hypertension documented in this encounter [facility] general Narrative - Reported* Type Description Date Medical History triscupid valve leaks Medical History htn Surgical History appendectomy Surgical History heart valve Hospitalization History see above surg [facility] [employer] Other Hospital Discharge instructions Additional Instructions Follow-up with your primary care doctor and the edging machine setter provided Return to ED if develop worsening [facility] Work Phone: InstructionsNot on filedocumented in this encounter [facility] SystemProgress note No data available for this section [facility] reason for referral (narrative)* Outpatient Procedure (Routine) - Pending Review Specialty Diagnoses / Procedures Referred By Contac t Referred [facility] Diagnoses S/P tricuspid valve repair Procedures ECHO ECHO TTHRC R-T 2D W/WOM-MODE COMPL SPEC&COLR D Esme Hdz MD [address] [place] [address] [facility] [place] [address] [place] [address] Referral ID Status Reason Start Date Expiration Date Visits Requested Visits Authorized [id number] Pending Review Auto-Generat ed Referral 05/30/2022 05/30/2023 1 1 * Outpatient Procedure (Routine) - Authorized Specialty Diagnoses / Procedures Referred By Contac t Referred To Contact [facility] [place] Diagnoses S/P tricuspid valve repair Procedures ECG COMPLETE ECG ROUTINE ECG W/LEAST 12 LDS W/I&R Esme Hdz MD [address] [place] [address] [facility] [address] [address] Referral ID Status Reason Start Date Expiration Date Visits Requested Visits Authorized [id number] Authorized Auto-Generat ed Referral 05/30/2022 05/30/[address] [facility] for referral (narrative)* Outpatient Procedure (Routine) - Pending Review Specialty Diagnoses / Procedures Referred By Contac t Referred To Contact [facility] [place] Diagnoses Dysplastic tricuspid valve Procedures ECHO ECHO TTHRC R-T 2D W/WOM-MODE COMPL SPEC&COLR D Esme Hdz MD [address] [place] [address] [address] Referral ID Status Reason Start Date Expiration Date Visits Requested Visits Authorized [id number] Pending Review Auto-Generat ed Referral 09/05/2022 09/05/[address] [facility] for referral (narrative)* Outpatient Procedure (Routine) - Pending Review Specialty Diagnoses / Procedures Referred By Contac t Referred To Contact [facility] [place] Diagnoses Dysplastic tricuspid valve Procedures ECG COMPLETE ECG ROUTINE ECG W/LEAST 12 LDS Emeterio/I&R Esme Hdz MD [address] [place] [address] [facility] [address] [address] Referral ID Status Reason Start Date Expiration Date Visits Requested Visits Authorized [id number] Pending Review Auto-Generat ed Referral 10/24/2022 10/24/2023 1 1 * Outpatient Procedure (Routine) - Pending Review Specialty Diagnoses / Procedures Referred By Contac t Referred To Contact [facility] [place] Diagnoses Dysplastic tricuspid valve Procedures ECHO SPECIALIST COMPLEX ADULT CONGENITAL ECHO TTHRC R-T 2D W/WOM-MODE COMPL SPEC&Esme Hawk MD [address] [place] [address] [place] [address] [address] [place] [id number] Referral ID Status Reason Start Date Expiration Date Visits Requested Visits Authorized [id number] Pending Review Auto-Generat ed Referral 10/24/2022 10/24/[address] [facility] for referral (narrative)* Outpatient Procedure (Routine) - Pending Review Specialty Diagnoses / Procedures Referred By Contac t Referred To Contact [facility] Diagnoses Dysplastic tricuspid valve Procedures ECHO SPECIALIST COMPLEX ADULT CONGENITAL ECHO TTHRC R-T 2D W/WOM-MODE COMPL SPEC&Esme Hawk MD [address] [place] [address] [place] [address] [place] [address] Referral ID Status Reason Start Date Expiration Date Visits Requested Visits Authorized [id number] Pending Review Auto-Generat ed Referral 11/05/2023 11/04/2024 1 1 * Outpatient Procedure (Routine) - Pending Review Specialty Diagnoses / Procedures Referred By Contac t Referred To Contact [facility] [place] Diagnoses Dysplastic tricuspid valve Procedures ECG COMPLETE ECG ROUTINE ECG W/LEAST 12 LDS W/I&R Esme Hdz MD [address] [place] [address] [address] Referral ID Status Reason Start Date Expiration Date Visits Requested Visits Authorized [id number] Pending Review Auto-Generat ed Referral 11/05/2023 11/04/2024 1 1 * Transition of Care (Routine) - Ref Not Required Specialty Diagnoses / Procedures Referred By Contregina t Referred To Contact [facility] [place] Procedures CARDIOVASCULAR MEDICINE [place] [address] [place] [address] [address] Referral ID Status Reason Start Date Expiration Date Visits Requested Visits Authorized [id number] Ref Not Required PCP Requested Referral 08/06/2024 11/04/2024 1 1 * Outpatient Procedure (Routine) - Closed Specialty Diagnoses / Procedures Referred By Ariela t Referred To Contact [facility] [place] Diagnoses Dysplastic tricuspid valve Procedures ECHO SPECIALIST COMPLEX ADULT CONGENITAL ECHO TTHRC R-T 2D W/WOM-MODE COMPL SPEC&[place] [address] [place] [address] [address] Referral ID Status Reason Start Date Expiration Date V isits Requested Visits Authorized [id number] Closed Auto-Generate d Referral 11/01/2023 10/31/[address] [facility] for visit Narrative* Transition of Care (Routine) - Closed Specialty Diagnoses / Procedures Referred By Contac t Referred To Contact [facility] [place] Procedures CARDIOVASCULAR MEDICINE [place] [address] [place] [address] Phone: tel: fax: [facility] [address] [address] Referral ID Status Reason Start Date Expiration Date V isits Requested Visits Authorized [id number] Closed PCP Requested Referral 08/06/2024 11/04/2024 1 1 [facility] Summary Purpose Family History No Family History Records FoundNo Family History Records FoundNo Family History Records Found No data available for this section No Family History Records Found Advance Directives No Advanced Directives Records Found Advance Directive Response Recorded Date/ Time Advance Directives No April 17, 2021 2:01pm Advance Directive Response Recorded Date/ Time Advance Directives No April 17, 2021 1:01pm Reason for Referral Specialty Diagnoses / Procedures Referred By Contac t Referred To Contact [facility] Diagnoses Dysplastic tricuspid valve Procedures MRA CHEST CARDIOVASCULAR WO IVCON MRA CHEST WITH OR W/O CONT Esme Hdz MD [address] [place] [address] [facility] Referral ID Status Reason Start Date Expiration Date V isits Requested Visits Authorized [id number] Closed Auto-Generate d Referral 10/20/2022 11/19/2023 1 1 Specialty Diagnoses / Procedures Referred By Contac t Referred To Contact [facility] Diagnoses Cardiomyopathy, unspecified type (HCC) Procedures MRI CARDIAC MORPH FUNC WO IVCON CARDIAC MRI MORPHOLOGY & FUNCTION W/O CONTRAST Esme Hdz MD [address] [place] [address] Mr Imaging Referral ID Status Reason Start Date Expiration Date V isits Requested Visits Authorized [id number] Closed Auto-Generate d Referral 10/20/2022 11/19/2023 1 1 Chief Complaint and Reason for Visit Chief Complaint Right hand pain with injury Chief Complaint Right hand pain with injury [id number] Reason for Visit Contusion of hand, r ight Chief Complaint Admit Date cp going into left arm-high bp August 01, 2024 4:25pm Chief Complaint Admit Date cp going into left arm-high bp August 01, 2024 4:25pm right shoulder/arm pain October 29, 2024 1: 09pm Additional Source Comments REASON FOR VISIT (unrecogniz ed section and content) Reason Comments Appointment Specialty Diagnoses / Procedures Referred By Contac t Referred To Contact [facility] Diagnoses Dysplastic tricuspid valve Procedures MRI CARDIAC MORPH FUNC WO/W IVCON CARDIAC MRI W/WO CONTRAST & FURTHER SEQ Esme Hdz MD [address] [place] [address] Mr Imaging Referral ID Status Reason Start Date Expiration Date V isits Requested Visits Authorized [id number] Closed Auto-Generate d Referral 07/01/2022 07/31/2023 1 1 Reason Comments est clinical Reason Comments Patient Question Reason Comments Refill Request Source Comments (unrecognize d section and content) In the event this informatio n is protected by the Federal Confidentiality of Alcohol and Drug Abuse Patient Records regulations: The Federal rules restrict any use of the information to criminally investigate or prosecute any alcohol or drug abuse patient.[facility] the event this information is protected by the Federal Confidentiality of Alcohol and Drug Abuse Patient Records regulations: The Federal rules restrict any use of the information to criminally investigate or prosecute any alcohol or drug abuse patient.[facility] the event this information is protected by the Federal Confidentiality of Alcohol and Drug Abuse Patient Records regulations: The Federal rules restrict any use of the information to criminally investigate or prosecute any alcohol or drug abuse patient.[facility] the event this information is protected by the Federal Confidentiality of Alcohol and Drug Abuse Patient Records regulations: The Federal rules restrict any use of the information to criminally investigate or prosecute any alcohol or drug abuse patient.[facility] the event this information is protected by the Federal Confidentiality of Alcohol and Drug Abuse Patient Records regulations: The Federal rules restrict any use of the information to criminally investigate or prosecute any alcohol or drug abuse patient.[facility] the event this information is protected by the Federal Confidentiality of Alcohol and Drug Abuse Patient Records regulations: The Federal rules restrict any use of the information to criminally investigate or prosecute any alcohol or drug abuse patient.[facility] the event this information is protected by the Federal Confidentiality of Alcohol and Drug Abuse Patient Records regulations: The Federal rules restrict any use of the information to criminally investigate or prosecute any alcohol or drug abuse patient.[facility] the event this information is protected by the Federal Confidentiality of Alcohol and Drug Abuse Patient Records regulations: The Federal rules restrict any use of the information to criminally investigate or prosecute any alcohol or drug abuse patient.[facility] the event this information is protected by the Federal Confidentiality of Alcohol and Drug Abuse Patient Records regulations: The Federal rules restrict any use of the information to criminally investigate or prosecute any alcohol or drug abuse patient.[facility] the event this information is protected by the Federal Confidentiality of Alcohol and Drug Abuse Patient Records regulations: The Federal rules restrict any use of the information to criminally investigate or prosecute any alcohol or drug abuse patient.[facility] Hospital[facility] the event this information is protected by the Federal Confidentiality of Alcohol and Drug Abuse Patient Records regulations: The Federal rules restrict any use of the information to criminally investigate or prosecute any alcohol or drug abuse patient.[facility] Care Teams (unrecognized sec tion and content) Team Status: Active Member Role Status Dates PHYSICIAN NO FAMILY Primary Care Provider Active Team Status: Inactive Member Role Status Dates PHYSICIAN NO FAMILY Primary Care Provider Active Start: August 01, 2024 End: August 01, 2024 Allen Cheung DO Emergency Provider Active Sta rt: August 01, 2024 End: August 01, 2024 Team Status: Inactive Member Role Status Dates PHYSICIAN NO FAMILY Primary Care Provider Active Start: October 29, 2024 End: October 29, 2024 Wilma Garcia APRN Attending Provider Active Start: October 29, 2024 End: October 29, 2024 Team Status: Active Member Role Status Dates PHYSICIAN NO FAMILY Primary Care Provider Active Start: June 18, 2024 Colby Lerner DO Attending Provider Active Sta rt: June 18, 2024 Law Researcher Relationship Specialty Start Date End Date Carlos Arceo . [address] [place] [address] PCP - General Family Medicine 10/15/20 Esme Hdz MD [address] [place] [address] Primary Staff Physician Cardiology 08/18/21 Law Researcher Relationship Specialty Start Date End Date Carlos Arceo . [address] [place] [address] PCP - General Family Medicine 10/15/20 Esme Hdz MD [address] [place] [address] Primary Staff Physician Cardiology 08/18/21 Law Researcher Relationship Specialty Start Date End Date Carlos Arceoip Sr. [address] [place] [address] PCP - General Family Medicine 10/15/20 Esme Hdz MD [address] [place] [address] Primary Staff Physician Cardiology 08/18/21 Law Researcher Relationship Specialty Start Date End Date Carlos Arceo Sr. [address] [facility] [place] [address] PCP - General Family Medicine 10/15/20 Esme Hdz MD [address] [place] [address] Primary Staff Physician Cardiology 08/18/21 Law Researcher Relationship Specialty Start Date End Date Carlos Arceo Sr. [address] [facility] [place] [address] PCP - General Family Medicine 10/15/20 Esme Hdz MD [address] [place] [address] Primary Staff Physician Cardiology 08/18/21 Law Researcher Relationship Specialty Start Date End Date Carlos Arceo Sr. [address] [facility] [place] [address] PCP - General Family Medicine 10/15/20 Esme Hdz MD [address] [place] [address] Primary Staff Physician Cardiology 08/18/21 Law Researcher Relationship Specialty Start Date End Date Carlos Arceo Sr. [address] [facility] [place] [address] PCP - General Family Medicine 10/15/20 Esme Hdz MD [address] [place] [address] Primary Staff Physician Cardiology 08/18/21 Law Researcher Relationship Specialty Start Date End Date Carlos Arceo Sr., DO PCP - General Family Medicine 10/15/20 Esme Hdz MD [address] [place] [address] Primary Staff Physician Cardiology 08/18/21 Team Status: [...] Provider Active S tart: December 29, 2023 Law Researcher Relationship Specialty Start Date End Date Carlos Arceo Sr., DO PCP - General Family Medicine 10/15/20 Esme Hdz MD [address] [place] [address] Primary Staff Physician Cardiology 08/18/21 Law Researcher Relationship Specialty Start Date End Date No Pcp, [place] [address] PCP - General Family Medicine 06/17/18 Law Researcher Relationship Specialty Start Date End Date Carlos Arceo Sr., DO PCP - General Family Medicine 10/15/20 09/11/24 Esme Hdz MD [address] [place] [address] Primary Staff Physician Cardiology 08/18/21 Law Researcher Relationship Specialty Start Date End Date Esme Hdz MD [address] [place] [address] [phone] (work) Primary Staff Physician Cardiology 08/18/21 (unrecognized sect ion and content) No Status Records FoundNo Status Records FoundNo Status Records FoundNo Status Records Found INFORMATION SOURCE (unrecogn ized section and content) DATE CREATED AUTHOR 06/28/2022 [facility] DATE CREATED AUTHOR AUTHOR'S ORGANIZ ATION 08/14/2024 [facility] DATE CREATED AUTHOR AUTHOR'S ORGANIZ ATION 10/10/2024 [facility] DATE CREATED AUTHOR AUTHOR'S ORGANIZ ATION 02/02/2025 [facility] Goals (unrecognized section and content) Goals may [...] BE BASED ON THE PRIMARY CLINICAL RECORDS. [employer] [facility]. provides no warranty or guarantee of the accuracy or completeness of information in this document.
--- NOTE | 2025-02-05 16:53 | US_ITS ---
[address] [address] Patient Name: ALLIE TORRE MRN: [id number] date: 1990 Sex: M Assigned Patient Location: [place] Current Patient Location: Accession/Order Number: [id number] Exam Date: 02/06/2025 09:05 Report Date: 02/06/2025 09:07 At the request of: JASON WALDROP MD Procedure: US scrotum Scrotal ultrasound Reason for exam: Left testicular pain for one year Comparison: none Technique: Grayscale, color Doppler and spectral Doppler images of the scrotal contents were obtained. Findings: The right testicle measures 5.5 x 2.7 x 3.7 cm. No evidence of testicular mass or microlithiasis. Normal arterial and venous Doppler waveforms. Epididymis appears unremarkable. Small hydrocele. Right varicocele. Left testicle measures 5.3 x 2.6 x 4.0 cm. No evidence of testicular mass or microlithiasis. Normal arterial and venous Doppler waveforms. Epididymis appears unremarkable. Small hydrocele. Left-sided varicocele. US/US scrotum Impression: No evidence of testicular mass, epididymitis, orchitis or torsion. Small bilateral hydroceles. Bilateral varicoceles. Impression dictated by: Gregory Wilhelm Jr., D.O. 02/06/2025 9:07 AM Dictation Location: [place] [address] Electronically authenticated by: [id number] Y Date: 02/06/2025 09:07
== END 2025-02-05 16:38 | disposition home or self-care (01) ==
PROVIDERS: Visit Provider Urology
DX: N50.812 Left testicular pain (principal); N43.3 Hydrocele, unspecified; I86.1 Scrotal varices
CPT/HCPCS: 76870

== ENCOUNTER 2025-04-05 07:53 | Outpatient (OUT) | payer OTHER, SELFPAY ==
--- OUTSIDE RECORDS SUMMARY | 2013-09-19 09:00 | XMS_ITS | Continuity of Care Document ---
Author Organization [facility] Address [address] [place] [address] Phone Care Team Providers Care Horser Up Name Role Phone Garrett LEIVA , September Unavailable Unavailable Allergies, Adverse Reactions, Alerts Substance Reaction Status Criticality penicillin G Active No Information Medications Medication Instructions Dosage Effective Dates (start - stop) Status Comments [place] 5 mg-325 mg tablet take 1 tablet [...] Diagnoses Date Provider Providers Copied on Encounter [facility], [address] [place] [address], [id number], [place] tel:[phone] Dental Clinic Dental examination Garrett DMD September. [address] [place], [place], [id number], [place]. tel:[phone] [facility], [address] [place] [address], [id number], tel:[phone] Dental Clinic Dental examination Garrett DMD Briseida. [address] [place], [place], [id number], [place]. tel:[phone] [facility], [address] [place] [address], [id number], [place] tel:[phone] Dental Clinic Dental examination Garrett DMD September. [address] [place], [place], [id number], [place]. tel:[phone] Family History Family Member Type Diagnosis Age At Onset No Information Payers Payer name Insurance type Covered democrat ID Authorbrittanya petr(s) No Information Social History [...]
--- OUTSIDE RECORDS SUMMARY | 2025-04-05 07:55 | XMS_ITS | Clinical Summary ---
Author Organization [place] [facility] Address [id number] [address] [place] [address] Care Team Providers Care Rodent Control Worker Name Role Phone No Pcp, No Pcp [...] Medical Devices Not on file Care Teams Rodent Control Worker Relationship Specialty Start Date End Date No Pcp, [place] [id number] PCP - General Family Medicine 06/17/18
--- OUTSIDE RECORDS SUMMARY | 2025-04-05 07:55 | XMS_ITS | CCD ---
Author Organization [facility] Care Team Providers Care Keno Manager Name Role Phone Mirtha Garza Unavailable Adis Pickett.Carlos Primary Care Provider Esme Calderon MD Unavailable HOUSE, DR FLOWERS Primary Care [...] Sr., Carlos VALENZUELA Primary Care Provider Esme Calderon MD Unavailable NO FAMILY, PHYSICIAN Primary Care Provider Unava ilable CHILO Ojeda Attending Provider [phone] NO FAMILY, PHYSICIAN Primary Care Provider Unava ilable Allen Cheung DO Emergency Provider Allen Cheung Admitting Unavailable Allen Cheung Attending Unavailable NO FAMILY, PHYSICIAN Primary Care Unavailable Teresa Ojeda Admitting Unavailable Teresa Ojeda Attending Unavailable NO FAMILY, PHYSICIAN Primary Care Unavailable No Pcp, No Pcp Primary Care Provider Unavailabl e House Sr., Carlos VALENZUELA Primary Care Provider ESME CALDERON Referring Unavailable CARLOS ARCEO SR Primary Care Unavailable ESME CALDERON Referring Unavailable CARLOS ARCEO SR Primary Care [...] Unava ilable Allen Cheung DO Emergency Provider Bijal Robertson Attending Unavailable Lavon WALDROP Attending Unavailable Allergies Allergy Classification Reported Allergen(s) Allergy Type Date of Onset Reaction(s) Facility (5 sources) Penicillin G Drug Allergy 12-29-19 Unknown, Unknown Reaction [facility] (17 sources) diphenhydrAMINE; Translations: [DIPHENHYDRAMINE] Drug Allergy 01-12-20 19 Rash, Itching [facility] (12 sources) Penicillins; Translations: [PENICILLINS] Propensity to adverse reactions 09-11-19 05 [facility] (1 source) Penicillins Drug allergy (disorder) 12-17-19 13 [facility] (1 source) Sulfonamides (Antibiotic) Drug allergy (disorder) [facility] (1 source) diphenhydrAMINE Drug Allergy 12-29-19 24 [facility] (1 source) Penicillin Drug Allergy 12-29-19 [facility] (1 source) diphenhydrAMINE Drug Allergy 06-16-20 18 [facility] (1 source) Penicillins Propensity to adverse reactions 09-11-19 05 [facility] (2 sources) Penicillin; Translations: [penicillin] Drug Allergy [facility] (1 source) diphenhydrAMINE; Translations: [Benadryl] Drug Allergy [facility] Repository Medications Current Medications Medication Drug Class(es) [...] 04-12-2021 Episodic Other aftercare (1 source) 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 Kfcf-zmr-mpgsqa sitz bath To take a sitz bath with an jolu-ubx-obfdgy basin: 1. Follow the palliative care nurse's instructions. 2. Fill the basin with warm [...] if it cracks, or according to the palliative care nurse's instructions. Contact a health care provider if: [...] provider. Document Revised: 09/13/2022 Document Reviewed: 09/13/2022 [employer] Patient Education ??? 2023 [employer] Testicular Self-Exam A self-examination of your (more content not included)... Normal [facility] Provider Letteron 01-30-2025 Provider Letter Provider Letter January 30, 2025 ALLIE FUNES [address] [place] [id number] : 1990 To Whom It May Concern, Please excuse above patient from work. Date of Illness: From: 01/30/25 To: 01/30/25 May Return to Work On: 01/31/25 Restrictions: None Comments: Patient had an appointment with [facility] 01/30/25. 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 SHIMS: 15 IPSS: pt complains of lt testicle pain and feels swollen denies pain/burning denies visible blood denies flank pain History of Present Illness Tests reviewed: UA I have reviewed the previous health record information and history for this patient from Dr. Waldrop. I have reviewed and verified the staff [...] Lavon Alcala, URL [facility] [address] [place] [address]- Additional Instructions: sched scrotal US, PRN Patient Education How to Take a Sitz Bath Testicular Self-Exam I, Adelina Castanon, personally scribed for Dr. Waldrop on 01/30/2025 16:14:55. . Documentation recorded by the scribe, Adelina Castanon, accurately reflects the services(s) I performed and decisions made by me. Authenticated by Dr. Waldrop on 01/30/2025 16:17:35. Problem List/Past Medical History [...] Protein Urine Dipstick: Negative (01/30/25 15:46:00) Specific [place] Urine Dipstick: >=1.030 (01/30/25 15:46:00) Urine Appearance Urine Dipstick: Clear (01/30/25 15:46:00) Urine Color Urine Dipstick: Light yellow (01/30/25 15:46:00) Urobilinogen Urine Dipstick: Normal 0.2-1 EU/dl (01/30/25 15:46:00) pH Urine Dipstick: 5.5 (01/30/25 15:46:00) Normal [facility] Comment on above: Result Comment: Elec tronically Signed By: Lavon WALDROP MD\.br\Date and Time Signed: 01/30/25 16:17 EDT\.br\Electronically Co-Signed By: Adelina Castanon\.br\Date and Time Co-Signed: 01/30/25 16:15 EDT CBC panel Auto (Bld)on 09-09 Erythrocyte distribution width (RBC) [Ratio] 11.7 % Normal 11.5-15.0 [facility] Comment on above: Order Comment: Speci men Type: BLOOD SPECIMEN Ordering Facility: [facility] Address: [address] [place] [address] Performed By: #### 5 8410-2 #### [facility] CLIA [id number] [address] [place] [address] [place] Hematocrit (Bld) [Volume fraction] 43.7 % Normal 39.0-51.0 [facility] Comment on above: Order Comment: Speci men Type: BLOOD SPECIMEN Ordering Facility: [facility] Address: [address] [place] [address] Performed By: #### 5 8410-2 #### [facility] CLIA [id number] [address] [place] [address] [place] Hemoglobin (Bld) [Mass/Vol] 14.9 g/dL Normal 13.0-17.0 [facility] Comment on above: Order Comment: Speci men Type: BLOOD SPECIMEN Ordering Facility: [facility] Address: [address] [place] [address] Performed By: #### 5 8410-2 #### [facility] CLIA [id number] [address] [place] [address] [place] MCH (RBC) [Entitic mass] 30.3 pg Normal 26.0-34.0 [facility] Comment on above: Order Comment: Speci men Type: BLOOD SPECIMEN Ordering Facility: [facility] Address: [address] [place] [address] Performed By: #### 5 8410-2 #### [facility] CLIA [id number] [address] [place] [place] [address] [place] MCHC (RBC) [Mass/Vol] 34.1 g/dL Normal 30.5-36.0 [facility] Comment on above: Order Comment: Speci men Type: BLOOD SPECIMEN Ordering Facility: [facility] Address: [address] [place] [address] Performed By: #### 5 8410-2 #### [facility] CLIA [id number] [address] [address] [place] MCV (RBC) [Entitic vol] 89.0 fL Normal 80.0-100.0 [facility] Comment on above: Order Comment: Speci men Type: BLOOD SPECIMEN Ordering Facility: [facility] Address: [address] [place] [address] Performed By: #### 5 8410-2 #### [facility] CLIA [id number] [address] [address] [place] Nucleated RBC (Bld) [#/Vol] 10*3/uL Normal <0.01 [facility] Comment on above: Order Comment: Speci men Type: BLOOD SPECIMEN Ordering Facility: [facility] Address: [address] [place] [address] Performed By: #### 5 8410-2 #### [facility] CLIA [id number] [address] [address] [place] Platelet mean volume (Bld) [Entitic vol] 10.2 fL Normal 9.0-12.7 [facility] Comment on above: Order Comment: Speci men Type: BLOOD SPECIMEN Ordering Facility: [facility] Address: [address] [place] [address] Performed By: #### 5 8410-2 #### [facility] CLIA [id number] [address] [address] [place] Platelets (Bld) [#/Vol] 282 10*3/uL Normal 150-400 [facility] Comment on above: Order Comment: Speci men Type: BLOOD SPECIMEN Ordering Facility: [facility] Address: [address] [place] [address] Performed By: #### 5 8410-2 #### [facility] CLIA [id number] [address] [place] [address] [place] RBC (Bld) [#/Vol] 4.91 10*6/uL Normal 4.20-6.00 [facility] Comment on above: Order Comment: Speci men Type: BLOOD SPECIMEN Ordering Facility: [facility] Address: [address] [place] [address] Performed By: #### 5 8410-2 #### [facility] CLIA [id number] [address] [address] [place] WBC (Bld) [#/Vol] 8.31 10*3/uL Normal 3.70-11.00 [facility] Comment on above: Order Comment: Speci men Type: BLOOD SPECIMEN Ordering Facility: [facility] Address: [address] [place] [address] Performed By: #### 5 8410-2 #### [facility] CLIA [id number] [address] [place] [address] [place] CNOVon 09-09-2024 CNOV Office Visit (CARCMN ) ----- ALLIE FUNES ([id number]) 1990 M Date Time Provider Department 09/09/24 3:45 PM ESME CALDERON During your visit today, we recorded the following information about you: Pulse Blood pressure Weight 97/minute 143/95 106.3 kg Esme Calderon MD 09/12/2024 5:08 PM [facility] [place] AD[facility]ITAL [facility] DISE[facility] OUTPATIENT VISIT DATE September 09, 2024 OUTPATIENT VISIT TYPE ESTABLISHED PRIMARY CARE PHYSICIAN: Carlos Arceo Sr. [address] [place] [address] CHIEF COMPLAINT: Follow up CONGENITAL CARDIAC HISTORY: [...] Procedure Laterality Date HEART CATHETERIZATION 02/2016 at [facility] HEART SURGERY HX 07/29/2016 s/p sternotomy, TV [...] GASTROINTESTINAL: N (more content not included)... Normal [facility] Comprehensive metabolic 2000 panelon 09-09-2024 Albumin [Mass/Vol] 4.8 g/dL Normal 3.9-4.9 [facility] Comment on above: Order Comment: Speci men Type: BLOOD SPECIMEN Ordering Facility: [facility] Address: [address] [place] [address] Performed By: #### 2 4323-8, 22383-2 #### [facility] CLIA [id number] [address] [place], [place] [address] [place] [address] [place] ALP [Catalytic activity/Vol] 86 U/L Normal 38-113 [facility] Comment on above: Order Comment: Speci men Type: BLOOD SPECIMEN Ordering Facility: [facility] Address: [address] [place] [address] Performed By: #### 2 4323-8, 10961-8 #### [facility] CLIA [id number] [address] [place], [place] [address] [place] ALT [Catalytic activity/Vol] 15 U/L Normal 10-54 [facility] Comment on above: Order Comment: Speci men Type: BLOOD SPECIMEN Ordering Facility: [facility] Address: [address] [place] [address] Performed By: #### 2 4323-8, 93050-8 #### [facility] CLIA [id number] [address] [address] [place] Anion gap [Moles/Vol] 10 mmol/L Normal 8-15 [facility] Comment on above: Order Comment: Speci men Type: BLOOD SPECIMEN Ordering Facility: [facility] Address: [address] [place] [address] Performed By: #### 2 4323-8, 95652-7 #### [facility] CLIA [id number] [address] [place] [address] [place] AST [Catalytic activity/Vol] 11 U/L Low 14-40 [facility] Comment on above: Order Comment: Speci men Type: BLOOD SPECIMEN Ordering Facility: [facility] Address: [address] [place] [address] Performed By: #### 2 4323-8, 47222-1 #### [facility] CLIA [id number] [address] [address] [place] Bilirubin [Mass/Vol] 0.4 mg/dL Normal 0.2-1.3 [facility] Comment on above: Order Comment: Speci men Type: BLOOD SPECIMEN Ordering Facility: [facility] Address: [address] [place] [address] Performed By: #### 2 4323-8, 88966-8 #### [facility] CLIA [id number] [address] [place], [place] [address] [place] Calcium [Mass/Vol] 9.6 mg/dL Normal 8.5-10.2 [facility] Comment on above: Order Comment: Speci men Type: BLOOD SPECIMEN Ordering Facility: [facility] Address: [address] [place], [place] [address] Performed By: #### 2 4323-8, 50091-7 #### [facility] CLIA [id number] [address] [place], [place] [address] [place] Chloride [Moles/Vol] 105 mmol/L Normal 98-107 [facility] Comment on above: Order Comment: Speci men Type: BLOOD SPECIMEN Ordering Facility: [facility] Address: [address] [place], [place] [address] Performed By: #### 2 4323-8, 33414-4 #### [facility] CLIA [id number] [address] [place] [address] [place] CO2 [Moles/Vol] 25 mmol/L Normal 22-30 [facility] Comment on above: Order Comment: Speci men Type: BLOOD SPECIMEN Ordering Facility: [facility] Address: [address] [place] [address] Performed By: #### 2 4323-8, 22436-4 #### [facility] CLIA [id number] [address] [address] [place] Creatinine [Mass/Vol] 0.95 mg/dL Normal 0.73-1.22 [facility] Comment on above: Order Comment: Speci men Type: BLOOD SPECIMEN Ordering Facility: [facility] Address: [address] [place], [place] [address] Performed By: #### 2 4323-8, 01833-4 #### [facility] CLIA [id number] [address] [address] [place] Creatinine and Glomerular filtration rate.predicted panel (S/P/Bld) 108 mL/min/1.73m??? Normal >=60 [facility] Comment on above: Order Comment: Speci men Type: BLOOD SPECIMEN Ordering Facility: [facility] Address: [address] [place] [address] Result Comment: Sonja mated Glomerular Filtration Rate [...] actual GFR. Performed By: #### 2 4323-8, 82022-3 #### [facility] CLIA [id number] [address] [address] [place] Glucose [Mass/Vol] 93 mg/dL Normal 74-99 [facility] Comment on above: Order Comment: Ana ayoub Type: BLOOD SPECIMEN Ordering Facility: [facility] Address: [address] [place] [address] Result Comment: The [place] Diabetes Association (ADA) provides guidance for cutoff [...] Standards of Medical Care in Diabetes 2016, [place] [employer]. Diabetes Care. 2016.39(Suppl 1). Performed By: #### 2 4323-8, 24660-5 #### [facility] CLIA [id number] [address] [address] [place] Potassium [Moles/Vol] 4.0 mmol/L Normal 3.7-5.1 [facility] Comment on above: Order Comment: Ana ayoub Type: BLOOD SPECIMEN Ordering Facility: [facility] Address: [address] [place] [address] Performed By: #### 2 4323-8, 40430-6 #### [facility] CLIA [id number] [address] [address] [place] Protein [Mass/Vol] 7.4 g/dL Normal 6.3-8.0 [facility] Comment on above: Order Comment: Speci men Type: BLOOD SPECIMEN Ordering Facility: [facility] Address: [address] [place] [address] Performed By: #### 2 4323-8, 61096-1 #### [facility] CLIA [id number] [address] [place] [address] [place] Sodium [Moles/Vol] 140 mmol/L Normal 136-144 [facility] Comment on above: Order Comment: Speci men Type: BLOOD SPECIMEN Ordering Facility: [facility] Address: [address] [place] [address] Performed By: #### 2 4323-8, 32690-3 #### [facility] CLIA [id number] [address] [place] [address] [place] Urea nitrogen [Mass/Vol] 11 mg/dL Normal 9-24 [facility] Comment on above: Order Comment: Speci men Type: BLOOD SPECIMEN Ordering Facility: [facility] Address: [address] [place] [address] Performed By: #### 2 4323-8, 19005-3 #### [facility] IA [id number] [address] [place] [address] [place] ECG COMPLETEon 09-09-2024 ECG COMPLETE Ventricular Rate : 7 0 BPM Atrial Rate : 70 BPM P-R Interval : 132 ms QRS Duration : 168 ms Q-T Interval : 426 ms QTC Calculation(Bazett) : 460 ms Calculated P [place] : 36 degrees Calculated R [place] : 69 degrees Calculated T [place] : 23 degrees NORMAL SINUS RHYTHM COMPLETE RIGHT BUNDLE BRANCH BLOCK ABNORMAL ECG Confirmed by GEOVANNA MARTINES MD ([id number]) on 10/08/2024 8:14:00 PM NAME : ALLIE FUNES PID : [id number] : 1990 Gender : Male Race : ORD : [id number] Procedure Date : Sep 09 2024 14:07:29 Edit Date : Oct 08 2024 20:14:03 Diagnosis: NORMAL SINUS RHYTHM COMPLETE RIGHT BUNDLE BRANCH BLOCK ABNORMAL ECG Confirmed by GEOVANNA MARTINES MD ([id number]) on 10/08/2024 8:14:00 PM Test Reason : Location : 314 : J14 Overread By : GEOVANNA MARTINES MD Edited By : GEOVANNA MARTINES MD Referred By : ESME CALDERON Acquired by : MIKE SHIN [facility] ECHO SPECIALIST COMPLEX ADUL T CONGENITALon 09-09-2024 ECHO SPECIALIST COMPLEX ADULT CONGENITAL Echocardiography Report: [facility] MARIAH-2 Date of service: 09/09/2024 1:34:55 PM [employer] Ordering physician: ESME CALDERON Indication: Ebstein anomaly s/p TVr Technologist: Aditi Lopez Interpreting physician: Esme Calderon MD PATIENT: Name: MR. ALLIE FUNES : [...] exam performed on 11/01/2023. Similar findings. Final [employer] : [id number] See Link below for Image Normal [facility] Lipid 1996 panelon 5 Cholesterol [Mass/Vol] 142 mg/dL Normal <200 [facility] Comment on above: Order Comment: Ana men Type: BLOOD SPECIMEN Ordering Facility: [facility] Address: [address] [place] [address] Result Comment: <200 mg/dL, Desirable 200-239 mg/dL, Borderline high >239 mg/dL, High Performed By: #### 2 4323-8, 35091-1 #### [facility] CLIA [id number] [address] [place] [address] [place] [address] [place] Cholesterol in HDL [Mass/Vol] 33 mg/dL Low >39 [facility] Comment on above: Order Comment: Ana men Type: BLOOD SPECIMEN Ordering Facility: [facility] Address: [address] [place] [address] Result Comment: 40-5 9 mg/dL, Acceptable >59 mg/dL, High: Negative risk factor for coronary heart disease <40 mg/dL, Low: Positive risk factor for coronary heart disease Performed By: #### 2 4323-8, 82604-1 #### [facility] CLIA [id number] [address] [facility] [address] [place] Cholesterol in LDL [Mass/Vol] 97 mg/dL Normal <100 [facility] Comment on above: Order Comment: Melissai men Type: BLOOD SPECIMEN Ordering Facility: [facility] Address: [address] [place] [address] Result Comment: <100 mg/dL, Optimal 100-129 mg/dL, Near optimal/above optimal 130-159 mg/dL, Borderline high 160-189 mg/dL, High >189 mg/dL, Very high Secondary prevention optimal LDL Cholesterol levels are recommended to be < 70 mg/dL Performed By: #### 2 4323-8, 29694-8 #### [facility] CLIA [id number] [address] [place], [place] [address] [place] [address] [place] Cholesterol in LDL/Cholesterol in HDL [Mass ratio] 2.94 {ratio} High <2.54 [facility] Comment on above: Order Comment: Ana men Type: BLOOD SPECIMEN Ordering Facility: [facility] Address: [address] [place] [address] Result Comment: Aubree dallas: 1. National Cholesterol Education Program ATP III Guideline At-A-Glance Quick Desk Reference: National Heart, Lung, and Blood [place]. National Institutes of Health. 2001: NIH Publication No. 01-3305. 2. An International Atherosclerosis Society position paper: global recommendations for the management of dyslipidemia: executive summary, Atherosclerosis. 2014: 232(2):410-413. Performed By: #### 2 4323-8, 88344-7 #### [facility] CLIA [id number] [address] [place], [place] [address] [place] [id number] [place] Cholesterol in VLDL [Mass/Vol] 12 mg/dL Normal <30 [facility] Comment on above: Order Comment: Speci men Type: BLOOD SPECIMEN Ordering Facility: [facility] Address: [address] [place] [id number] Performed By: #### 2 4323-8, 22902-3 #### [facility] CLIA [id number] [address] [place] [address] [place] Cholesterol non HDL [Mass/Vol] 109 mg/dL Normal <130 [facility] Comment on above: Order Comment: Speci men Type: BLOOD SPECIMEN Ordering Facility: [facility] Address: [address] [place] [address] Result Comment: <130 mg/dL, Optimal 130-159 mg/dL, Near optimal/above optimal 160-189 mg/dL, Borderline high 190-219 mg/dL, High >219 mg/dL, Very high Secondary prevention optimal non HDL Cholesterol levels are recommended to be <100 mg/dL Performed By: #### 2 4323-8, 57616-0 #### [facility] CLIA [id number] [address] [place] [address] [place] Cholesterol.total/Chol esterol in HDL [Mass ratio] 4.30 {ratio} Normal <5.10 [facility] Comment on above: Order Comment: Speci men Type: BLOOD SPECIMEN Ordering Facility: [facility] Address: [address] [place], [place] [address] Performed By: #### 2 4323-8, 65046-7 #### [facility] CLIA [id number] [address] [place], [place] [id number] [place] FASTING TIME 12 hrs Normal [facility] [place] Comment on above: Order Comment: Speci men Type: BLOOD SPECIMEN Ordering Facility: [facility] Address: [address] [place], [place] [id number] Performed By: #### 2 4323-8, 30367-5 #### [facility] CLIA [id number] [address] [place], [place] [address] [place] Triglyceride [Mass/Vol] 59 mg/dL Normal <150 [facility] [place] Comment on above: Order Comment: Speci men Type: BLOOD SPECIMEN Ordering Facility: [facility] Address: [address] [place] [address] Result Comment: <150 mg/dL, Normal 150-199 mg/dL, Borderline high 200-499 mg/dL, High >499 mg/dL, Very high Performed By: #### 2 4323-8, 32775-3 #### [facility] CLIA [id number] [address] [place] [address] [place] [address] [place] Alanine aminotransferase [En zymatic activity/volume] in Serum or PlasmaOrdered By: Allen Cheung on 08-01-2024 ALT [Catalytic activity/Vol] Alanine aminotransferase [Enzymatic activity/volume] in Serum or Plasma 7-52 [facility] Albumin [Mass/volume] in Ser um or Plasma by Bromocresol green (BCG) dye binding methoOrdered By: Allen Cheung on 08-01-2024 Albumin BCG dye [Mass/Vol] Albumin [Mass/volume] in Serum or Plasma by Bromocresol green (BCG) dye binding metho 3.5-5.7 [facility] Alkaline phosphatase [Enzyma tic activity/volume] in Serum or PlasmaOrdered By: Allen Cheung on 08-01-2024 ALP [Catalytic activity/Vol] Alkaline phosphatase [Enzymatic activity/volume] in Serum or Plasma 34-104 [facility] Aspartate aminotransferase [ Enzymatic activity/volume] in Serum or PlasmaOrdered By: Allen Cheung on 08-01-2024 AST [Catalytic activity/Vol] Aspartate aminotransferase [Enzymatic activity/volume] in Serum or Plasma 13-39 [facility] B-Type Natriuretic Peptideon 08-01-2024 Natriuretic peptide B (Bld) [Mass/Vol] 23.0 pg/mL Normal 5-100 [facility] Comment on above: Result Comment: PERF ORMED BY: [facility] [address] [place] [address] PATHOLOGIST [employer] FAREED DAVALOS M.D. Performed By: #### C K, HS TROP, PTT, BNP, PT, BMP, HEPATIC, CBC #### [address] Basic Metabolic Panelon 020 Anion gap [Moles/Vol] 14.3 mmol/L Normal 6.0-15.0 Th [facility] Comment on above: Performed By: #### C K, HS TROP, PTT, BNP, PT, BMP, HEPATIC, CBC #### [address] Calcium [Mass/Vol] 9.9 mg/dL Normal 8.6-10.3 [facility] Comment on above: Result Comment: PERF ORMED BY: [place] [address] PATHOLOGIST [employer] FAREED DAVALOS M.D. Performed By: #### C K, HS TROP, PTT, BNP, PT, BMP, HEPATIC, CBC #### [address] Chloride [Moles/Vol] 104 mmol/L Normal 98-107 [facility] Comment on above: Performed By: #### C K, HS TROP, PTT, BNP, PT, BMP, HEPATIC, CBC #### [address] CO2 [Moles/Vol] 22.0 mmol/L Normal 21.0-31.0 [facility] Comment on above: Performed By: #### C K, HS TROP, PTT, BNP, PT, BMP, HEPATIC, CBC #### [address] Creatinine [Mass/Vol] 1.01 mg/dL Normal 0.70-1.30 [facility] Comment on above: Performed By: #### C K, HS TROP, PTT, BNP, PT, BMP, HEPATIC, CBC #### [address] GFR/1.73 sq M.predicted MDRD (S/P/Bld) [Vol rate/Area] mL/min/{1.73_m2} Normal [facility] Comment on above: Performed By: #### C K, HS TROP, PTT, BNP, PT, BMP, HEPATIC, CBC #### [address] Glucose [Mass/Vol] 99 mg/dL Normal 70-100 [facility] Comment on above: Result Comment: [place] Glucose Reference Range is dependent on time and content of last meal. Glucose of more than 200 mg/dL in a nonstressed, ambulatory subject supports the diagnosis of Diabetes Mellitus. ADA recommended reference range Performed By: #### C K, HS TROP, PTT, BNP, PT, BMP, HEPATIC, CBC #### [address] Potassium [Moles/Vol] 3.3 mmol/L Low 3.5-5.1 [facility] Comment on above: Performed By: #### C K, HS TROP, PTT, BNP, PT, BMP, HEPATIC, CBC #### [address] Sodium [Moles/Vol] 137 mmol/L Normal 136-145 [facility] Comment on above: Performed By: #### C K, HS TROP, PTT, BNP, PT, BMP, HEPATIC, CBC #### [address] Urea nitrogen [Mass/Vol] 15 mg/dL Normal 7-25 [facility] Comment on above: Performed By: #### C K, HS TROP, PTT, BNP, PT, BMP, HEPATIC, CBC #### [address] Basophils Auto (Bld) [#/Vol] Ordered By: Allen Cheung on 08-01-2024 Basophils (Bld) [#/Vol] Automated basophil count 0.0-0.2 [facility] Basophils/100 WBC Auto (Bld) Ordered By: Allen Cheung on 08-01-2024 Basophils/100 WBC (Bld) Automated basophil % . [facility] Bilirubin.direct [Mass/volum e] in Serum or PlasmaOrdered By: Allen Cheung on 08-01-2024 Bilirubin.direct [Mass/Vol] Bilirubin.direct [Mass/volume] in Serum or Plasma High 0.03-0.18 [facility] Bilirubin.total [Mass/volume ] in Serum or PlasmaOrdered By: Allen Cheung on 08-01-2024 Bilirubin [Mass/Vol] Bilirubin.total [Mass/volume] in Serum or Plasma High 0.3-1.0 [facility] Comment on above: Samples from patient s who have taken Naproxen have shown spurious elevation in Total Bilirubin levels. A metabolite of Naproxen, O-desmethylnaproxen, has been shown to interfere with the Jendrassik-Grof method for measuring Total Bilirubin. BioFire Not Detectedon 08-01 BioFire Not Detected Not detected Normal Not Detecte [facility] Comment on above: Result Comment: This is a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 [address] [place] [address] Performed By: #### 5 8410-2 #### [facility] CLIA [id number] [address] [place] [address] [place] MCV (RBC) [Entitic vol] 87.2 fL Normal 80.0-100.0 [facility] Comment on above: Order Comment: Speci men Type: BLOOD SPECIMEN Ordering Facility: [facility] Address: [address] [place] [address] Performed By: #### 5 8410-2 #### [facility] CLIA [id number] [address] [place] [address] [place] Nucleated RBC (Bld) [#/Vol] 10*3/uL Normal <0.01 [facility] Comment on above: Order Comment: Speci men Type: BLOOD SPECIMEN Ordering Facility: [facility] Address: [address] [place] [address] Performed By: #### 5 8410-2 #### [facility] CLIA [id number] [address] [place] [address] [place] Platelet mean volume (Bld) [Entitic vol] 10.3 fL Normal 9.0-12.7 [facility] Comment on above: Order Comment: Speci men Type: BLOOD SPECIMEN Ordering Facility: [facility] Address: [address] [place] [address] Performed By: #### 5 8410-2 #### [facility] CLIA [id number] [address] [place] [address] [place] Platelets (Bld) [#/Vol] 295 10*3/uL Normal 150-400 [facility] Comment on above: Order Comment: Speci men Type: BLOOD SPECIMEN Ordering Facility: [facility] Address: [address] [place] [address] Performed By: #### 5 8410-2 #### [facility] CLIA [id number] [address] [place] [address] [place] RBC (Bld) [#/Vol] 4.78 10*6/uL Normal 4.20-6.00 [facility] Comment on above: Order Comment: Speci men Type: BLOOD SPECIMEN Ordering Facility: [facility] Address: [address] [place] [address] Performed By: #### 5 8410-2 #### [facility] CLIA [id number] [address] [place] [address] [place] WBC (Bld) [#/Vol] 7.94 10*3/uL Normal 3.70-11.00 [facility] Comment on above: Order Comment: Speci men Type: BLOOD SPECIMEN Ordering Facility: [facility] Address: [address] [place] [address] Performed By: #### 5 8410-2 #### [facility] CLIA [id number] [address] [place] [address] [place] CNOVon 11-01-2023 CNOV Office Visit (CARCMN ) ----- ALLIE FUNES ([id number]) 1990 M Date Time Provider Department 11/01/23 2:15 PM ESME CALDERON During your visit today, we recorded the following information about you: Pulse Blood pressure Weight 92/minute 128/86 107.7 kg Esme Calderon MD 11/05/2023 4:22 PM [facility] [place] [facility] OUTPATIENT VISIT DATE November 01, 2023 OUTPATIENT VISIT TYPE ESTABLISHED PRIMARY CARE PHYSICIAN: Carlos Arceo Sr. [address] [place] [address] CHIEF COMPLAINT: Follow up CONGENITAL CARDIAC HISTORY: [...] Procedure Laterality Date HEART CATHETERIZATION 02/2016 at [facility] HEART SURGERY HX 07/29/2016 s/p sternotomy, TV [...] rhonchi. H (more content not included)... Normal [facility] Comprehensive metabolic 2000 panelon 11-01-2023 Albumin [Mass/Vol] 4.6 g/dL Normal 3.9-4.9 [facility] Comment on above: Order Comment: Speci men Type: BLOOD SPECIMEN Ordering Facility: [facility] Address: [address] [place] [address] Performed By: #### L IPNF, 05695-1, 88260-1 #### [facility] CLIA [id number] [address] [place] [address] [place] ALP [Catalytic activity/Vol] 83 U/L Normal 38-113 [facility] Comment on above: Order Comment: Speci men Type: BLOOD SPECIMEN Ordering Facility: [facility] Address: [address] [place] [address] Performed By: #### L IPNF, 36356-9, 77018-4 #### [facility] CLIA [id number] [address] [place] [address] [place] ALT [Catalytic activity/Vol] 21 U/L Normal 10-54 [facility] Comment on above: Order Comment: Speci men Type: BLOOD SPECIMEN Ordering Facility: [facility] Address: [address] [place] [address] Performed By: #### L IPNF, 64881-6, 94802-3 #### [facility] CLIA [id number] [address] [place] [address] [place] Anion gap [Moles/Vol] 14 mmol/L Normal 9-18 [facility] Comment on above: Order Comment: Speci men Type: BLOOD SPECIMEN Ordering Facility: [facility] Address: [address] [place] [address] Performed By: #### L MADYSON, 32683-4, 82406-6 #### [facility] CLIA [id number] [address] [place] [address] [place] AST [Catalytic activity/Vol] 15 U/L Normal 14-40 [facility] Comment on above: Order Comment: Speci men Type: BLOOD SPECIMEN Ordering Facility: [facility] Address: [address] [place] [address] Performed By: #### L MADYSON, 26265-8, 23251-7 #### [facility] CLIA [id number] [address] [place] [address] [place] Bilirubin [Mass/Vol] 0.8 mg/dL Normal 0.2-1.3 [facility] Comment on above: Order Comment: Speci men Type: BLOOD SPECIMEN Ordering Facility: [facility] Address: [address] [place] [address] Performed By: #### L IPLUIS ENRIQUE, 32037-0, 25757-1 #### [facility] CLIA [id number] [address] [place] [address] [place] Calcium [Mass/Vol] 9.9 mg/dL Normal 8.5-10.2 [facility] Comment on above: Order Comment: Speci men Type: BLOOD SPECIMEN Ordering Facility: [facility] Address: [address] [place] [address] Performed By: #### L IPNF, 25592-2, 10006-8 #### [facility] CLIA [id number] [address] [place] [address] [place] Chloride [Moles/Vol] 103 mmol/L Normal 97-105 [facility] Comment on above: Order Comment: Speci men Type: BLOOD SPECIMEN Ordering Facility: [facility] Address: [address] [place] [address] Performed By: #### L MADYSNO, 37330-3, 83178-3 #### [facility] CLIA [id number] [address] [place] [address] [place] CO2 [Moles/Vol] 21 mmol/L Low 22-30 [facility] Comment on above: Order Comment: Speci men Type: BLOOD SPECIMEN Ordering Facility: [facility] Address: [address] [place] [address] Performed By: #### L IPNF, 97225-5, 96026-6 #### [facility] CLIA [id number] [address] [place] [address] [place] Creatinine [Mass/Vol] 0.99 mg/dL Normal 0.73-1.22 [facility] Comment on above: Order Comment: Speci men Type: BLOOD SPECIMEN Ordering Facility: [facility] Address: [address] [place] [address] Performed By: #### L IPLUIS ENRIQUE, 22302-1, 93894-9 #### [facility] CLIA [id number] [address] [place] [address] [place] Creatinine and Glomerular filtration rate.predicted panel (S/P/Bld) 103 mL/min/1.73m??? Normal >=60 [facility] Comment on above: Order Comment: Speci men Type: BLOOD SPECIMEN Ordering Facility: [facility] Address: [address] [place] [address] Result Comment: Sonja mated Glomerular Filtration Rate [...] actual GFR. Performed By: #### L IPNF, 72352-6, 19633-2 #### [facility] CLIA [id number] [address] [place] [address] [place] Glucose [Mass/Vol] 96 mg/dL Normal 74-99 [facility] Comment on above: Order Comment: Specya men Type: BLOOD SPECIMEN Ordering Facility: [facility] Address: [address] [place] [address] Result Comment: The [place] Diabetes Association (ADA) provides guidance for cutoff [...] Standards of Medical Care in Diabetes 2016, [place] [employer]. Diabetes Care. 2016.39(Suppl 1). Performed By: #### L IPNF, 51040-1, 48390-0 #### [facility] CLIA [id number] [address] [place] [address] [place] Potassium [Moles/Vol] 4.1 mmol/L Normal 3.7-5.1 [facility] Comment on above: Order Comment: Melissai men Type: BLOOD SPECIMEN Ordering Facility: [facility] Address: [address] [place] [address] Performed By: #### L IPNF, 60595-1, 15368-7 #### [facility] CLIA [id number] [address] [place] [address] [place] Protein [Mass/Vol] 7.5 g/dL Normal 6.3-8.0 [facility] Comment on above: Order Comment: Ana ayoub Type: BLOOD SPECIMEN Ordering Facility: [facility] Address: [address] [place] [address] Performed By: #### L IPNF, 79036-3, 46297-0 #### [facility] CLIA [id number] [address] [place] [address] [place] Sodium [Moles/Vol] 138 mmol/L Normal 136-144 [facility] Comment on above: Order Comment: Speci men Type: BLOOD SPECIMEN Ordering Facility: [facility] Address: [address] [place] [address] Performed By: #### L IPLUIS ENRIQUE, 48749-7, 71622-3 #### [facility] CLIA [id number] [address] [place] [address] [place] Urea nitrogen [Mass/Vol] 18 mg/dL Normal 9-24 [facility] Comment on above: Order Comment: Speci men Type: BLOOD SPECIMEN Ordering Facility: [facility] Address: [address] [place] [address] Performed By: #### L IPLUIS ENRIQUE, 73472-3, 58620-4 #### [facility] IA [id number] [address] [place] [address] [place] ECG COMPLETEon 11-01-2023 ECG COMPLETE Ventricular Rate : 9 0 BPM Atrial Rate : 90 BPM P-R Interval : 146 ms QRS Duration : 160 ms Q-T Interval : 400 ms QTC Calculation(Bazett) : 489 ms Calculated P [place] : 36 degrees Calculated R [place] : 68 degrees Calculated T [place] : 17 degrees NORMAL SINUS RHYTHM COMPLETE RIGHT BUNDLE BRANCH BLOCK ABNORMAL ECG Confirmed by ASHLEY PAIZ MD ([id number]) on 11/03/2023 11:00:39 PM NAME : ALLIE FUNES PID : [id number] : 1990 Gender : Male Race : ORD : [id number] Procedure Date : Nov 01 2023 10:22:27 Edit Date : Nov 03 2023 23:00:45 Diagnosis: NORMAL SINUS RHYTHM COMPLETE RIGHT BUNDLE BRANCH BLOCK ABNORMAL ECG Confirmed by ASHLEY PAIZ MD ([id number]) on 11/03/2023 11:00:39 PM Test Reason : Location : 314 : J14 J14 Overread By : ASHLEY PAIZ MD Edited By : ASHLEY PAIZ MD Referred By : ESME CALDERON Acquired by : GINA MUNROE [facility] ECHOACHDon 11-01-2023 ECHOACHD Echocardiography Rep ort: [facility] J1-5 Date of service: 11/01/2023 12:48:23 PM [employer] Ordering physician: ESME CALDERON Indication: Dysplastic TV / TVR Technologist: Ronald Bonilla [facility] Interpreting physician: Esme Calderon MD PATIENT: Name: MR. ALLIE FUNES : [...] leaflets, and Lizett Classic annuloplasty ring #34 (-JUL-2016, [facility]). - The left ventricle is normal [...] regurgitation noted today. Otherwise similar findings. Final [employer] [facility] : [id number] See Link below for Image Normal [facility] EXERCISE STRESS ECG METABOLI C (WITHOUT IMAGING)on 11-01-2023 EXERCISE STRESS ECG METABOLIC (WITHOUT IMAGING) Stress ECG Report: Exercise Stress ECG Metabolic (without Imaging) [facility] MARIAH2 Date of service: 11/01/2023 9:06:58 AM [employer] client resolution specialist: Cathy Lopez Quality Audit Representative: Tamika Dixon Interpreting physician: Maggie Cruz MD [...] stress lab #: 1 Study protocol type: Casar 10% Final treadmill speed: 3.40 mph Final [...] (HRR): 6 bpm Rate Pressure Product (RPP): 79374 Metabolic Exercise Data Variable: Observed value [Expected [...] HUYNH, Jack (more content not included)... Normal [facility] LIPID PANEL, NONFASTINGon Cholesterol [Mass/Vol] 184 mg/dL Normal <200 Cl [facility] Comment on above: Order Comment: Speci anitra Type: BLOOD SPECIMEN Ordering Facility: [facility] Address: [address] [place] [address] Result Comment: <200 mg/dL, Desirable 200-239 mg/dL, Borderline high >239 mg/dL, High Performed By: #### L MADYSON, 64238-0, 51420-3 #### [facility] CLIA [id number] [address] [place] [address] [id number] [place] [address] [place] HDL CHOLESTEROL, NF 36 mg/dL Low >39 [facility] Comment on above: Order Comment: Ana ayoub Type: BLOOD SPECIMEN Ordering Facility: [facility] Address: [address] [place] [address] Result Comment: 40-5 9 mg/dL, Acceptable >59 mg/dL, High: Negative risk factor for coronary heart disease <40 mg/dL, Low: Positive risk factor for coronary heart disease Performed By: #### L MADYSON, 85581-1, 86910-2 #### [facility] CLIA [id number] [address] [place] [address] [place] LDL CHOLESTEROL, NF 112 mg/dL High <100 [facility] Comment on above: Order Comment: Ana ayoub Type: BLOOD SPECIMEN Ordering Facility: [facility] Address: [address] [place] [address] Result Comment: <100 mg/dL, Optimal 100-129 mg/dL, Near optimal/above optimal 130-159 mg/dL, Borderline high 160-189 mg/dL, High >189 mg/dL, Very high Secondary prevention optimal LDL Cholesterol levels are recommended to be < 70 mg/dL Performed By: #### L MADYSON, 55574-0, 40976-5 #### [facility] CLIA [id number] [address] [place] [address] [place] LDL/HDL RATIO, NF 3.11 mg/dL High <2.54 [facility] Comment on above: Order Comment: Ana ayoub Type: BLOOD SPECIMEN Ordering Facility: [facility] Address: [address] [place] [address] Result Comment: Aubree d[place]: 1. National Cholesterol Education Program ATP III Guideline At-A-Glance Quick Desk Reference: National Heart, Lung, and Blood [place]. National Institutes of Health. 2001: NIH Publication No. 01-3305. 2. An International Atherosclerosis Society position paper: global recommendations for the management of dyslipidemia: executive summary, Atherosclerosis. 2014: 232(2):410-413. Performed By: #### L IPNF, 57259-9, 81831-2 #### [facility] IA [id number] [address] [place] [address] [place] NON HDL CHOL, NF 148 mg/dL High <130 [facility] Comment on above: Order Comment: Ana yaoub Type: BLOOD SPECIMEN Ordering Facility: [facility] Address: [address] [place] [address] Result Comment: <130 mg/dL, Optimal 130-159 mg/dL, Near optimal/above optimal 160-189 mg/dL, Borderline high 190-219 mg/dL, High >219 mg/dL, Very high Secondary prevention optimal non HDL Cholesterol levels are recommended to be <100 mg/dL Performed By: #### L MADYSON, 52823-8, 09841-0 #### [facility] CLIA [id number] [address] [place] [address] [place] T CHOL/HDL RATIO NF 5.11 mg/dL High <5.10 [facility] Comment on above: Order Comment: Speci men Type: BLOOD SPECIMEN Ordering Facility: [facility] Address: [address] [place] [address] Performed By: #### L MADYSON, 95567-9, 23406-0 #### [facility] CLIA [id number] [address] [place] [address] [place] TRIGLYCERIDES, NF 181 mg/dL High <150 [facility] Comment on above: Order Comment: Ana ayoub Type: BLOOD SPECIMEN Ordering Facility: [facility] Address: [address] [place] [address] Result Comment: <150 mg/dL, Normal 150-199 mg/dL, Borderline high 200-499 mg/dL, High >499 mg/dL, Very high Performed By: #### L MADYSON, 78423-4, 24788-8 #### [facility] CLIA [id number] [address] [place] [address] [place] VLDL CHOLESTEROL, NF 36 mg/dL High <30 [facility] Comment on above: Order Comment: Ana men Type: BLOOD SPECIMEN Ordering Facility: [facility] Address: [address] [place] [address] Performed By: #### L MADYSON, 68363-7, 08400-0 #### [facility] CLIA [id number] [address] [place] [address] [place] NT-proBNP [facility] 10-31 Natriuretic peptide.B prohormone N-Terminal [Mass/Vol] 88 pg/mL Normal <125 [facility] Comment on above: Order Comment: Speci men Type: BLOOD SPECIMEN Ordering Facility: [facility] Address: [address] [place] [address] Performed By: #### L IPNF, 05066-6, 06691-5 #### [facility] CLIA [id number] [address] [place] [address] [place] [address] [place] No Panel Informationon 10-20 [facility] CBC AUTO DIFFon 06-27-2022 BASO # 0.1 103/ul Normal 0.0-0.1 [facility] Comment on above: Performed By: #### C BC #### [facility] [address] [place] [address] Dr. Temi Lux Basophils/100 WBC (Bld) 0.9 % Normal 0.2-2.0 [facility] Comment on above: Performed By: #### C BC #### [facility] [address] [address] [address] Temi Lux EO # 0.2 103/ul Normal 0.0-0.7 [facility] Comment on above: Performed By: #### C BC #### [facility] [address] [place] [address] Dr. Temi Lux Eosinophils/100 WBC (Bld) 2.1 % Normal 0.9-7.0 [facility] Comment on above: Performed By: #### C BC #### [facility] [address] [place] [address] Dr. Temi Lux Erythrocyte distribution width (RBC) [Ratio] 11.8 % Normal 11.0-15.0 [facility] Comment on above: Performed By: #### C BC #### [facility] [address] [place] [address] Dr. Temi Lux Hematocrit (Bld) [Volume fraction] 41.7 % Critically low 42.0-54.0 [facility] Comment on above: Performed By: #### C BC #### [facility] [address] [place] [address] Dr. Temi Lux Hemoglobin (Bld) [Mass/Vol] 14.7 g/dL Normal 14.0-18.0 [facility] Comment on above: Performed By: #### C BC #### [facility] [address] [place] [address] Dr. Temi Lux IG # 0.03 10e3/ul Normal 0.00-0.03 [facility] Comment on above: Performed By: #### C BC #### [facility] [address] [place] [address] Dr. Temi Lux IG % 0.3 % Normal 0.0-0.5 [facility] Comment on above: Performed By: #### C BC #### [facility] [address] [place] [address] Dr. Temi Lux LYMPH # 3.4 103/ul Normal 1.2-3.8 [facility] Comment on above: Performed By: #### C BC #### [facility] [address] [place] [address] Dr. Temi Lux Lymphocytes/100 WBC (Bld) 35.2 % Normal 20.5-60.0 [facility] Comment on above: Performed By: #### C BC #### [facility] [address] [place] [address] Dr. Temi Lux MANUAL DIFF REQ NO Normal [facility] Comment on above: Performed By: #### C BC #### [facility] [address] [place] [address] Dr. Temi Lux MCH (RBC) [Entitic mass] 31.3 pg Normal 25.9-34.0 [facility] Comment on above: Performed By: #### C BC #### [facility] [address] [place] [address] Dr. Temi Lux MCHC (RBC) [Mass/Vol] 35.3 g/dL Critically high 29.9-35.2 [facility] Comment on above: Performed By: #### C BC #### [facility] [address] [place] [address] Dr. Temi Lux MCV (RBC) [Entitic vol] 88.9 fL Normal 80.0-94.0 [facility] Comment on above: Performed By: #### C BC #### [facility] [address] [place] [address] Dr. Temi Lux MONO # 0.4 103/ul Normal 0.3-0.8 [facility] Comment on above: Performed By: #### C BC #### [facility] [address] [place] [address] Dr. Temi Lux Monocytes/100 WBC (Bld) 4.6 % Normal 1.7-12.0 [facility] Comment on above: Performed By: #### C BC #### [facility] [address] [place] [address] Dr. Temi Lux NEUT # 5.4 103/ul Normal 1.4-6.5 [facility] Comment on above: Performed By: #### C BC #### [facility] [address] [place] [address] Dr. Temi Lux Neutrophils/100 WBC (Bld) 56.9 % Normal 43.0-75.0 [facility] Comment on above: Performed By: #### C BC #### [facility] [address] [place] [address] Dr. Temi Lux Platelet mean volume (Bld) [Entitic vol] 10.1 fL Normal 9.5-13.5 [facility] Comment on above: Performed By: #### C BC #### [facility] [address] [place] [address] Dr. Temi Lux PLT 291 103/ul Normal 150-450 [facility] Comment on above: Performed By: #### C BC #### [facility] [address] [place], [place] [id number] Dr. Temi Lux RBC 4.69 106/ul Critically low 4.70-6.10 [facility] Comment on above: Performed By: #### C BC #### [facility] [address] [place] [address] Dr. Temi Lux WBC 9.5 103/ul Normal 4.0-11.0 [facility] Comment on above: Performed By: #### C BC #### [facility] [address] [place] [address] Dr. Temi Lux PROF CHEM 8 (BAS METB)on Anion gap [Moles/Vol] 12.5 mmol/L Normal [facility] Comment on above: Performed By: #### B BRANNON, HSTROPN #### [facility] [address] [place] [address] Dr. Temi Lux Calcium [Mass/Vol] 9.2 mg/dL Normal 8.5-10.1 [facility] Comment on above: Performed By: #### B BRANNON, HSTROPN #### [facility] [address] [place] [address] Dr. Temi Lux Chloride [Moles/Vol] 102 mmol/L Normal 98-107 [facility] Comment on above: Performed By: #### B BRANNON, HSTROPN #### [facility] [address] [place] [address] Dr. Temi Lux CO2 [Moles/Vol] 26.0 mmol/L Normal 21.0-32.0 [facility] Comment on above: Performed By: #### B BRANNON, HSTROPN #### [facility] [address] [place] [address] Dr. Temi Lux Creatinine [Mass/Vol] 0.91 mg/dL Normal 0.70-1.30 [facility] Comment on above: Performed By: #### B BRANNON, HSTROPN #### [facility] [address] [place] [address] Dr. Temi Lux EGFR-AF PERUVIAN >60 Normal >=60 [facility] Comment on above: Performed By: #### B BRANNON, HSTROPN #### [facility] [address] [place] [address] Dr. Temi Lux EGFR-NON AF PERUVIAN >60 Normal >=60 [facility] Comment on above: Performed By: #### B BRANNON, HSTROPN #### [facility] [address] [place] [address] Dr. Temi Lux Glucose [Mass/Vol] 100 mg/dL Normal 74-106 [facility] Comment on above: Performed By: #### B BRANNON, HSTROPN #### [facility] [address] [address] [address] Temi Lux Potassium [Moles/Vol] 4.5 mmol/L Normal 3.5-5.1 [facility] Comment on above: Performed By: #### B BRANNON, HSTROPN #### [facility] [address] [address] [address] Temi Lux Sodium [Moles/Vol] 136 mmol/L Normal 136-145 [facility] Comment on above: Performed By: #### B BRANNON, HSTROPN #### [facility] [address] [address] [address] Temi Lux Urea nitrogen [Mass/Vol] 16.0 mg/dL Normal 7.0-18.0 [facility] Comment on above: Performed By: #### B BRANNON, HSTROPN #### [facility] [address] [address] [address] Temi Lux Urea nitrogen/Creatinine [Mass ratio] 17.6 mg/mg Normal [facility] Comment on above: Performed By: #### B BRANNON, HSTROPN #### [facility] [address] [address] [address] Temi Lux TROPONIN, HIGH SENSITIVITYon 06-27-2022 HSTROP 4.2 pg/mL Normal 4.0-76.1 [facility] Comment on above: Result Comment: CUT- OFF POINTS HAVE BEEN ESTABLISHED BASED ON THE FOURTH UNIVERSAL DEFINITIONS OF MYOCARDIAL INFARCTION. THE UPPER REFERENCE LIMIT (URL) OF TROPONIN, DEFINED THE 99TH PERCENTILE OF cTnI DISTRIBUTION IN A REFERENCE POPULATION, HAS BEEN CONFIRMED THE DECISION THRESHOLD FOR AR DIAGNOSIS. Performed By: #### B BRANNON, HSTROPN #### [facility] [address] [address] [address] Temi Lux XR CHEST 1 Von [...] acute cardiopulmonary abnormalities. Electronically authenticated by: BILL LISA Date: 2022-06-27 18:22 Normal [facility] Covid-19 PCR (CVDTBH)on 12-24 SARS-CoV-2 (COVID-19) RNA HERBERTH+probe Ql (Unsp spec) Detected Critically abnormal NOT DETECTED [facility] Comment on above: Result Comment: This test is not yet approved or cleared by the [place] FDA. When there are no FDA-approved or cleared tests available, and other criteria are met, FDA can make tests available under an emergency access mechanism called an Emergency Use Authorization (EUA). The EUA for this test is supported by the [employer] Engineer of Health and Human Service's declaration that [...] for this test is supported by the [employer] of Health and Human Service's (HHS's) declaration [...] Performed By: #### C ROME, BMP #### [facility] [address] [place] [address] Dr. Temi Lux CARDIAC KAROL 3-6on 2 CK [Catalytic activity/Vol] 72 U/L Normal 39-308 [facility] Comment on above: Performed By: #### Gino PETER, BMP #### [facility] [address] [place] [address] Dr. Temi Lux CK.MB [Mass/Vol] 0.71 ng/mL Normal <=3.60 [facility] Comment on above: Performed By: #### Gino PETER, BMP #### [facility] [address] [place] [address] Dr. Temi Lux HSTROP 4.7 pg/mL Normal 4.0-76.1 [facility] Comment on above: Result Comment: CUT- OFF POINTS HAVE BEEN ESTABLISHED BASED ON THE FOURTH UNIVERSAL DEFINITIONS OF MYOCARDIAL INFARCTION. THE UPPER REFERENCE LIMIT (URL) OF TROPONIN, DEFINED THE 99TH PERCENTILE OF cTnI DISTRIBUTION IN A REFERENCE POPULATION, HAS BEEN CONFIRMED THE DECISION THRESHOLD FOR AR DIAGNOSIS. Performed By: #### Gino PETER, BMP #### [facility] [address] [place] [address] Dr. Temi Lux CARDIAC KAROL ADMITon 022 CK [Catalytic activity/Vol] 80 U/L Normal 39-308 [facility] Comment on above: Performed By: #### Gino PETER, BMP #### [facility] [address] [place] [address] Dr. Temi Lux CK.MB [Mass/Vol] 0.66 ng/mL Normal <=3.60 [facility] Comment on above: Performed By: #### Gino PETER, BMP #### [facility] [address] [place] [address] Dr. Temi Lux HSTROP 5.6 pg/mL Normal 4.0-76.1 [facility] Comment on above: Result Comment: CUT- OFF POINTS HAVE BEEN ESTABLISHED BASED ON THE FOURTH UNIVERSAL DEFINITIONS OF MYOCARDIAL INFARCTION. THE UPPER REFERENCE LIMIT (URL) OF TROPONIN, DEFINED THE 99TH PERCENTILE OF cTnI DISTRIBUTION IN A REFERENCE POPULATION, HAS BEEN CONFIRMED THE DECISION THRESHOLD FOR AR DIAGNOSIS. Performed By: #### Gino PETER, BMP #### [facility] [address] [place] [address] Dr. Temi Lux BARBARA 25 ng/mL Normal 16-96 [facility] Comment on above: Performed By: #### C MADM, BMP #### [facility] [address] [place] [address] Dr. Temi Lux CBC AUTO DIFFon 12-17-2021 BASO # 0.1 103/ul Normal 0.0-0.1 [facility] Comment on above: Performed By: #### C BC #### [facility] [address] [place] [address] Dr. Temi Lux Basophils/100 WBC (Bld) 0.7 % Normal 0.2-2.0 [facility] Comment on above: Performed By: #### C BC #### [facility] [address] [place] [address] Dr. Temi Lux EO # 0.3 103/ul Normal 0.0-0.7 [facility] Comment on above: Performed By: #### C BC #### [facility] [address] [place] [address] Dr. Temi Lux Eosinophils/100 WBC (Bld) 2.6 % Normal 0.9-7.0 [facility] Comment on above: Performed By: #### C BC #### [facility] [address] [place] [address] Dr. Temi Lux Erythrocyte distribution width (RBC) [Ratio] 11.7 % Normal 11.0-15.0 [facility] Comment on above: Performed By: #### C BC #### [facility] [address] [place] [address] Dr. Temi Lux Hematocrit (Bld) [Volume fraction] 41.8 % Critically low 42.0-54.0 [facility] Comment on above: Performed By: #### C BC #### [facility] [address] [place] [address] Dr. Temi Lux Hemoglobin (Bld) [Mass/Vol] 14.3 g/dL Normal 14.0-18.0 [facility] Comment on above: Performed By: #### C BC #### [facility] [address] [place] [address] Dr. Temi Lux IG # 0.03 10e3/ul Normal 0.00-0.03 [facility] Comment on above: Performed By: #### C BC #### [facility] [address] [place] [address] Dr. Temi Lux IG % 0.2 % Normal 0.0-0.5 [facility] Comment on above: Performed By: #### C BC #### [facility] [address] [place] [address] Dr. Temi Lux LYMPH # 3.7 103/ul Normal 1.2-3.8 [facility] Comment on above: Performed By: #### C BC #### [facility] [address] [place] [address] Dr. Temi Lux Lymphocytes/100 WBC (Bld) 31.0 % Normal 20.5-60.0 [facility] Comment on above: Performed By: #### C BC #### [facility] [address] [place] [address] Dr. Temi Lux MANUAL DIFF REQ NO Normal [facility] Comment on above: Performed By: #### C BC #### [facility] [address] [place] [address] Dr. Temi Lux MCH (RBC) [Entitic mass] 31.2 pg Normal 25.9-34.0 [facility] Comment on above: Performed By: #### C BC #### [facility] [address] [place] [address] Dr. Temi Lux MCHC (RBC) [Mass/Vol] 34.2 g/dL Normal 29.9-35.2 [facility] Comment on above: Performed By: #### C BC #### [facility] [address] [place] [address] Dr. Temi Lux MCV (RBC) [Entitic vol] 91.1 fL Normal 80.0-94.0 [facility] Comment on above: Performed By: #### C BC #### [facility] [address] [place] [address] Dr. Temi Lux MONO # 0.7 103/ul Normal 0.3-0.8 [facility] Comment on above: Performed By: #### C BC #### [facility] [address] [place] [address] Dr. Temi Lux Monocytes/100 WBC (Bld) 5.4 % Normal 1.7-12.0 [facility] Comment on above: Performed By: #### C BC #### [facility] [address] [place] [address] Dr. Temi Lux NEUT # 7.3 103/ul Critically high 1.4-6.5 [facility] Comment on above: Performed By: #### C BC #### [facility] [address] [place] [address] Dr. Temi Lux Neutrophils/100 WBC (Bld) 60.1 % Normal 43.0-75.0 [facility] Comment on above: Performed By: #### C BC #### [facility] [address] [place] [address] Dr. Temi Lux Platelet mean volume (Bld) [Entitic vol] 10.1 fL Normal 9.5-13.5 [facility] Comment on above: Performed By: #### C BC #### [facility] [address] [place] [address] Dr. Temi Lux PLT 252 103/ul Normal 150-450 [facility] Comment on above: Performed By: #### C BC #### [facility] [address] [place] [address] Dr. Temi Lux RBC 4.59 106/ul Critically low 4.70-6.10 [facility] Comment on above: Performed By: #### C BC #### [facility] [address] [place] [address] Dr. Temi Lux WBC 12.1 103/ul Critically high 4.0-11.0 [facility] Comment on above: Performed By: #### C BC #### [facility] [address] [place] [address] Dr. Temi Lux D-DIMERon 12-17-2021 D-DIMER <0.19 Normal <=0.59 [facility] Comment on above: Performed By: #### D DIM #### [facility] [address] [place] [address] Dr. Temi Lux D-DIMER COMMENTS SEE BELOW Normal [facility] Comment on above: Result Comment: [...] hospitalization. Performed By: #### D DIM #### [facility] [address] [place] [address] Dr. Temi Lux PROF CHEM 8 (BAS METB)on Anion gap [Moles/Vol] 12.4 mmol/L Normal [facility] Comment on above: Performed By: #### C MADM, BMP #### [facility] [address] [place] [address] Dr. Temi Lux Calcium [Mass/Vol] 9.1 mg/dL Normal 8.5-10.1 [facility] Comment on above: Performed By: #### C MADM, BMP #### [facility] [address] [place] [address] Dr. Temi Lux Chloride [Moles/Vol] 105 mmol/L Normal 98-107 [facility] Comment on above: Performed By: #### C MADM, BMP #### [facility] [address] [place] [address] Dr. Temi Lux CO2 [Moles/Vol] 25.5 mmol/L Normal 21.0-32.0 [facility] Comment on above: Performed By: #### C MADM, BMP #### [facility] [address] [place] [address] Dr. Temi Lux Creatinine [Mass/Vol] 1.10 mg/dL Normal 0.70-1.30 [facility] Comment on above: Performed By: #### C MADM, BMP #### [facility] [address] [address] [address] Temi Lux EGFR-AF PERUVIAN >60 Normal >=60 [facility] Comment on above: Performed By: #### C MADM, BMP #### [facility] [address] [address] [address] Temi Lux EGFR-NON AF PERUVIAN >60 Normal >=60 [facility] Comment on above: Performed By: #### C MADM, BMP #### [facility] [address] [address] [address] Temi Lux Glucose [Mass/Vol] 108 mg/dL Critically high 74-106 [facility] Comment on above: Performed By: #### C MADM, BMP #### [facility] [address] [address] [address] Temi Lux Potassium [Moles/Vol] 3.9 mmol/L Normal 3.5-5.1 [facility] Comment on above: Performed By: #### C MADM, BMP #### [facility] [address] [address] [address] Temi Lux Sodium [Moles/Vol] 139 mmol/L Normal 136-145 [facility] Comment on above: Performed By: #### C MADM, BMP #### [facility] [address] [address] [address] Temi Lux Urea nitrogen [Mass/Vol] 23.0 mg/dL Critically high 7.0-18.0 [facility] Comment on above: Performed By: #### C MADM, BMP #### [facility] [address] [address] [address] Temi Lux Urea nitrogen/Creatinine [Mass ratio] 20.9 mg/mg Normal [facility] Comment on above: Performed By: #### C MADM, BMP #### [facility] [address] [address] [address] Temi Lux XR CHEST 2 Von [...] BRENTON SALAS Date: 2021-12-16 23:05 Normal [facility] Covid-19 PCR (CVDTB)on 07-28 SARS-CoV-2 (COVID-19) RNA HERBERTH+probe Ql (Unsp spec) Not detected Normal NOT DETECTED [facility] [facility] Comment on above: Result Comment: This test is not yet approved or cleared by the [place] FDA. When there are no FDA-approved or cleared tests available, and other criteria are met, FDA can make tests available under an emergency access mechanism called an Emergency Use Authorization (EUA). The EUA for this test is supported by the [employer] of Health and Human Service's (HHS's) declaration [...] consistent with SARS-CoV-2. Performed By: #### [facility] #### [facility] [address] [address] [address] Temi Lux XR hand RT min 3V*on 021 XR hand RT min 3V* [facility] [employer] Other XR hand RT min 3V* [facility] [employer] Other XR hand RT min 3V* [address] [employer] Other XR hand RT min 3V* ZA Mena [address] [employer] Other XR hand RT min 3V* XRay Report [employer] Other XR hand RT min 3V* Signed [employer] Other XR hand RT min 3V* Patient: Danie Funes MR#: [id number] [employer] Other XR hand RT min 3V* 6091 [employer] Other XR hand RT min 3V* : 1990 Acct:[id number] [employer] Other XR hand RT min 3V* Age/Sex: 31 / M ADM Date: 04/12/21 [employer] Other XR hand RT min 3V* Loc: XDUCLY Room: pe: REG CLI [employer] Other XR hand RT min 3V* Attending Dr: Ingrid Garza [facility] [employer] Other XR hand RT min 3V* Ordering Provider: MIRTHA GARZA [facility] [employer] Other XR hand RT min 3V* Date of Service: 04/12/21 [employer] Other XR hand RT min 3V* XR/XR hand RT min 3V*: RIGHT HAND INJURY [employer] Other XR hand RT min 3V* Copies to: MIRTHA GARZA [employer] Other XR hand RT min 3V* CLINICAL HISTORY: Desmond palacio fell yesterday catching himself with right hand on the underground. The [employer] Other XR hand RT min 3V* fingers were bent ba ck. Pain and swelling to the second and third distal metacarpals and over the [employer] Other XR hand RT min 3V* index and the middle fingers. Old fourth and fifth metacarpal fractures. [employer] Other XR hand RT min 3V* XR hand RT min 3V* [employer] Other XR hand RT min 3V* COMPARISON: None [employer] Other XR hand RT min 3V* FINDINGS: AP, latera l and oblique views of the right hand were obtained. A small cortical [employer] Other XR hand RT min 3V* fracture is demonstr ated at the base of the mid phalanx of the middle finger radially. Old fractures [employer] Other XR hand RT min 3V* are shown at the fou rth and fifth metacarpals. No other significant acute bone or joint [employer] Other XR hand RT min 3V* abnormalities are no pelon. Moderate soft tissue swelling is shown at the proximal portions of the [employer] Other XR hand RT min 3V* index and middle fingers. [employer] Other XR hand RT min 3V* X R/XR hand RT min 3V* [employer] Other XR hand RT min 3V* IMPRESSION: [employer] Other XR hand RT min 3V* A SMALL CORTICAL FRA CTURE AT THE BASE OF THE MID PHALANX OF THE MIDDLE FINGER. [employer] Other XR hand RT min 3V* Impression dictated by: Gregory Bhatt M.D.04/12/2021 11:30 AM [employer] Other XR hand RT min 3V* Dictation Location: [facility]--13 [employer] Other XR hand RT min 3V* Transcribed By: PWS 04/12/21 [facility] [employer] Other XR hand RT min 3V* Dictated By: Gregory Bhatt MD 04/12/21 1121 [facility] [employer] Other XR hand RT min 3V* Signed By: [employer] Other XR hand RT min 3V* 04/12/21 113 [facility] [employer] Other Vital Signs Date Time Vital Sign Value Performing Clinician Facility 10-29-2024 13:15-0400 Body height 193.[address] [facility] 10-29-2024 13:15-0400 Body mass index (BMI) [Ratio] 29.1 kg/m2 PHYSICIAN NO [facility] 10-29-2024 13:15-0400 Body temperature 97.6 [degF] PHYSICIAN NO [facility] 10-29-2024 13:15-0400 Body weight 108.[address] [facility] 10-29-2024 13:15-0400 Diastolic blood pressure 90 mm[Hg] PHYSICIAN NO [facility] 10-29-2024 13:15-0400 Heart rate 102 /min PHYSICIAN NO [facility] 10-29-2024 13:15-0400 Respiratory rate 18 /min PHYSICIAN NO [facility] 10-29-2024 13:15-0400 SaO2% (BldA) [Mass fraction] 98 % PHYSICIAN NO [facility] 10-29-2024 13:15-0400 Systolic blood pressure 137 mm[Hg] PHYSICIAN NO [facility] 09-09-2024 16:04-0400 Body mass index (BMI) [Ratio] 30.1 kg/m2 Esme Calderon MD Work Phone: [facility] 09-09-2024 16:04-0400 Body weight 106.32 kg Esme Calderon MD Work Phone: [facility] 09-09-2024 16:04-0400 Diastolic blood pressure 95 mm[Hg] Esme Calderon MD Work Phone: [facility] 09-09-2024 16:04-0400 Heart rate 97 /min Esme Calderon MD Work Phone: [facility] 09-09-2024 16:04-0400 SaO2% (BldA) [Mass fraction] 100 % Esme Calderon MD Work Phone: [facility] 09-09-2024 16:04-0400 Systolic blood pressure 143 mm[Hg] Esme Calderon MD Work Phone: [facility] 08-01-2024 19:16-0500 Diastolic blood pressure 73 mm[Hg] PHYSICIAN NO [facility] 08-01-2024 19:16-0500 Heart rate 73 /min PHYSICIAN NO [facility] 08-01-2024 19:16-0500 Respiratory rate 21 /min PHYSICIAN NO [facility] 08-01-2024 19:16-0500 SaO2% (BldA) [Mass fraction] 98 % PHYSICIAN NO [facility] 08-01-2024 19:16-0500 Systolic blood pressure 128 mm[Hg] PHYSICIAN NO [facility] 08-01-2024 18:39-0500 Body height 193.[address] [facility] 08-01-2024 18:39-0500 Body weight [address] [facility] 08-01-2024 16:50-0500 Body temperature 98.4 [degF] PHYSICIAN NO [facility] 12-29-2023 12:33-0400 Body height 187.[address] [facility] 12-29-2023 12:33-0400 Body mass index (BMI) [Ratio] 30.9 kg/m2 PHYSICIAN NO [facility] 12-29-2023 12:33-0400 Body temperature 97.8 [degF] PHYSICIAN NO [facility] 12-29-2023 12:33-0400 Body weight 109.[address] [facility] 12-29-2023 12:33-0400 Diastolic blood pressure 85 mm[Hg] PHYSICIAN NO [facility] 12-29-2023 12:33-0400 Heart rate 101 /min PHYSICIAN NO [facility] 12-29-2023 12:33-0400 Respiratory rate 18 /min PHYSICIAN NO [facility] 12-29-2023 12:33-0400 SaO2% (BldA) [Mass fraction] 97 % PHYSICIAN NO [facility] 12-29-2023 12:33-0400 Systolic blood pressure 133 mm[Hg] PHYSICIAN NO [facility] 11-01-2023 14:22-0400 Diastolic blood pressure 86 mm[Hg] Esme Calderon MD Work Phone: [facility] 11-01-2023 14:22-0400 Systolic blood pressure 128 mm[Hg] Esme Calderon MD Work Phone: [facility] 11-01-2023 14:19-0400 Body mass index (BMI) [Ratio] 30.48 kg/m2 Esme Calderon MD Work Phone: [facility] 11-01-2023 14:19-0400 Body weight 107.68 kg Esme Calderon MD Work Phone: [facility] 11-01-2023 14:19-0400 Heart rate 92 /min Esme Calderon MD Work Phone: [facility] 11-01-2023 14:19-0400 SaO2% (BldA) [Mass fraction] 95 % Esme Calderon MD Work Phone: [facility] 10-20-2022 15:28-0400 Body weight 103.42 kg Esme Calderon MD Work Phone: [facility] 10-20-2022 15:28-0400 Diastolic blood pressure 85 mm[Hg] Esme Calderon MD Work Phone: [facility] 10-20-2022 15:28-0400 Heart rate 88 /min Esme Calderon MD Work Phone: [facility] 10-20-2022 15:28-0400 SaO2% (BldA) [Mass fraction] 98 % Esme Calderon MD Work Phone: [facility] 10-20-2022 15:28-0400 Systolic blood pressure 130 mm[Hg] Esme Calderon MD Work Phone: [facility] 10-20-2022 09:06-0400 Body height 188 cm Mri (I-Stat/1.5t) Work Phone: [facility] 10-20-2022 09:06-0400 Body weight 103.42 kg Mri (I-Stat/1.5t) Work Phone: [facility] 10-20-2022 09:06-0400 Diastolic blood pressure 81 mm[Hg] Mri (I-Stat/1.5t) Work Phone: [facility] 10-20-2022 09:06-0400 Heart rate 97 /min Mri (I-Stat/1.5t) Work Phone: [facility] 10-20-2022 09:06-0400 Systolic blood pressure 143 mm[Hg] Mri (I-Stat/1.5t) Work Phone: [facility] 04-12-2021 11:25-0400 Body height 186.69 cm Mirtha Garza Other [employer] Other 04-12-2021 11:25-0400 Body mass index (BMI) [Ratio] 28.5 kg/m2 Mirtha Garza Other [employer] Other 04-12-2021 11:25-0400 Body temperature 98.6 [degF] Mirtha Garza Other [employer] Other 04-12-2021 11:25-0400 Body weight 99.34 kg Mirtha Garza Other [employer] Other 04-12-2021 11:25-0400 Diastolic blood pressure 86 mm[Hg] Mirtha Garza Other [employer] Other 04-12-2021 11:25-0400 Respiratory rate 18 /min Mirtha Garza Other [employer] Other 04-12-2021 11:25-0400 SaO2% (BldA) [Mass fraction] 99 % Mirtha Garza Other [employer] Other 04-12-2021 11:25-0400 Systolic blood pressure 140 mm[Hg] Mirtha Garza Other [employer] Other Encounters Encounter Date Encounter Type Care Provider Facility Start: 04-03-2025 ambulatory Bijal Robertson Facilit y:ROSALINDA Yap Start: 01-30-2025 End: 01-30-2025 ambulatory Lavon WALDROP Facility:ROSALINDA Yap Start: 01-30-2025 End: 01-30-2025 Patient encounter procedure Lavon WALDROP [facility] Start: 01-09-2025 ambulatory Bijal Robertson Facility: ROSALINDA Mena Start: 10-29-2024 End: 10-29-2024 ambulatory PHYSICIAN RAMONA [facility] Work Phone: Start: 10-29-2024 End: 10-29-2024 Patient encounter procedure PHYSICIAN NO [facility] Work Phone: Start: 10-10-2024 End: 10-10-2024 Refill Esme Calderon MD Work Phone: Cardiology Comment on above: Refill Request Start: 09-09-2024 End: 09-09-2024 ambulatory [facility] Facility[facility] Start: 09-09-2024 End: 09-09-2024 Patient encounter procedure Esme Calderon MD Work Phone: Cardiology Comment on above: Dysplastic tricuspid valve (Primary Dx); S/P tricuspid valve repair; Primary hypertension Start: 09-09-2024 End: 09-09-2024 ambulatory ESME FUCHS Facility:[facility] Start: 08-01-2024 End: 08-01-2024 Emergency department patient visit PHYSICIAN NO [facility] Work Phone: Start: 07-29-2024 End: 08-12-2024 Telephone encounter [facility] Work Phone: [facility] Start: 06-18-2024 Non-patient / Non-visit PHYSICIAN NO [facility] Work Phone: Start: 06-17-2024 End: 06-17-2024 Telephone encounter Esme Calderon MD Work Phone: Cardiology Comment on above: Patient Question Start: 12-29-2023 End: 12-29-2023 ambulatory PHYSICIAN RAMONA [facility] Work Phone: Start: 12-29-2023 End: 12-29-2023 Patient encounter procedure PHYSICIAN RAMONA [facility] Work Phone: Start: 11-01-2023 End: 11-01-2023 ambulatory ESME FUCHS Facility:[facility] Start: 11-01-2023 End: 11-01-2023 Patient encounter procedure Esme Calderon MD Work Phone: Cardiology Comment on above: Dysplastic tricuspid valve (Primary Dx); S/P tricuspid valve repair; Primary hypertension; Obesity, Class I, BMI 30-34.9 Start: 11-01-2023 End: 11-01-2023 ambulatory ESME FUCHS Facility:[facility] Start: 11-01-2023 End: 11-01-2023 ambulatory ESME CALDERON Facility:[facility] Start: 10-20-2022 End: 10-20-2022 Orders Only Bernadette Oakes MD Work Phone: Cardiology Comment on above: Cardiomyopathy, unsp ecified type (HCC) Dysplastic tricuspid valve (Primary Dx) Dysplastic tricuspid valve [Q24.8] Dysplastic tricuspid valve (Primary Dx); S/P tricuspid valve repair Start: 09-05-2022 Orders Only Esme Calderon MD Work Phone: Cardiology Comment on above: Dysplastic tricuspid valve (Primary Dx) Start: 07-04-2022 Telephone encounter Alley zimmerman MD Work Phone: Cardiology Comment on above: Appointment Start: 06-27-2022 End: 06-27-[address] CARLOS ARCEO Facility: Start: 05-30-2022 Orders Only Esme Calderon MD Work Phone: Cardiology Comment on above: S/P tricuspid valve repair (Primary Dx) Start: 01-04-2022 End: 01-04-[address] CARLOS ARCEO Facility:[facility] Start: 12-16-2021 End: 12-17-[address] CARLOS ARCEO Facility:[facility] Start: 08-20-2021 End: 08-20-[address] CARLOS ARCEO Facility:[facility] Start: 04-12-2021 Office outpatient vi sit 15 minutes Mirtha Garza [facility] Procedures Date Procedure Procedure Detail Performing Clinician Start: 08-01-2024 Plain chest X-ray PHYSI PATRICIA NO FAMILY Start: 08-01-2024 CT angiography of thorax PHYSICIAN NO FAMILY Start: 08-01-2024 Respiratory Panel (PCR) PHYSICIAN NO FAMILY Start: 12-29-2023 Plain X-ray of right forearm PHYSICIAN NO FAMILY Start: 12-29-2023 Plain X-ray of right hand PHYSICIAN NO FAMILY Start: 10-20-2022 Cardiac mri for [facility] flow mapping Esme Calderon MD Work Phone: Appendectomy Lavon WALDROP Open heart surgery Lavon HAND Repair of heart valve Jamison WALDROP Plan of Treatment Date Care Activity Detail Author Start: 09-12-2025 End: 12-12-2025 Basic metabolic 2000 panel - Serum or Plasma BASIC METABOLIC PANEL Lab Routine Dysplastic tricuspid valve Expected: 09/12/2025, Expires: 12/12/2025 [facility] Comment on above: Expected: 09/12/2025 , Expires: 12/12/2025 Start: 09-12-2025 End: 12-12-2025 CBC panel - Blood by Automated count COMPLETE BLOOD COUNT Lab Routine Dysplastic tricuspid valve Expected: 09/12/2025, Expires: 12/12/2025 [facility] Work Phone: Comment on above: Expected: 09/12/2025 , Expires: 12/12/2025 Start: 09-12-2025 End: 12-12-2025 Natriuretic peptide.B prohormone N-Terminal [Mass/volume] in Serum or Plasma NT PRO BNP Lab Routine Dysplastic tricuspid valve Expected: 09/12/2025, Expires: 12/12/2025 [facility] Comment on above: Expected: 09/12/2025 , Expires: 12/12/2025 Start: 11-04-2024 End: 02-03-2025 CBC panel - Blood by Automated count COMPLETE BLOOD COUNT Lab Routine Dysplastic tricuspid valve Expected: 11/04/2024, Expires: 02/03/2025 [facility] Comment on above: Expected: 11/04/2024 , Expires: 02/03/2025 Start: 11-04-2024 End: 02-03-2025 Comprehensive metabolic 2000 panel - Serum or Plasma COMPREHENSIVE METABOLIC PANEL Lab Routine Dysplastic tricuspid valve Expected: 11/04/2024, Expires: 02/03/2025 [facility] Work Phone: Comment on above: Expected: 11/04/2024 , Expires: 02/03/2025 Start: 11-04-2024 End: 02-03-2025 Lipid 1996 panel - Serum or Plasma LIPID PANEL BASIC Lab Routine Dysplastic tricuspid valve Expected: 11/04/2024, Expires: 02/03/2025 [facility] Comment on above: Expected: 11/04/2024 , Expires: 02/03/2025 Start: 02-25-2024 Covid-19 Vaccine () Covid-19 Vaccine () [facility] Start: 02-25-2024 Influenza vaccination [facility] Start: 10-25-2023 End: 12-25-2023 CBC panel - Blood by Automated count CBC Lab Routine Dysplastic tricuspid valve Expected: 10/25/2023, Expires: 12/25/2023 [facility] Work Phone: Comment on above: Expected: 10/25/2023 , Expires: 12/25/2023 Start: 10-25-2023 End: 12-25-2023 Comprehensive metabolic 2000 panel - Serum or Plasma COMP METABOLIC PANEL Lab Routine Dysplastic tricuspid valve Expected: 10/25/2023, Expires: 12/25/2023 [facility] Work Phone: Comment on above: Expected: 10/25/2023 , Expires: 12/25/2023 Start: 10-25-2023 ECG COMPLETE ECG COMPLETE E CG Routine Dysplastic tricuspid valve Expected: 10/25/2023 [facility] Work Phone: Comment on above: Expected: 10/25/2023 Start: 10-25-2023 ECHO SPECIALIST COMP JUAN JOSE ADULT CONGENITAL ECHO SPECIALIST COMPLEX ADULT CONGENITAL Cardiology Routine Dysplastic tricuspid valve Expected: 10/25/2023 [facility] Work Phone: Comment on above: Expected: 10/25/2023 Start: 10-25-2023 EXERCISE STRESS ECG METABOLIC (WITHOUT IMAGING) EXERCISE STRESS ECG METABOLIC (WITHOUT IMAGING) Cardiology Routine Dysplastic tricuspid valve Expected: 10/25/2023 [facility] Work Phone: Comment on above: Expected: 10/25/2023 Start: 10-25-2023 End: 12-25-2023 LIPID PANEL, NONFASTING LIPID PANEL, NONFASTING Lab Routine Dysplastic tricuspid valve Expected: 10/25/2023, Expires: 12/25/2023 [facility] Work Phone: Comment on above: Expected: 10/25/2023 , Expires: 12/25/2023 Start: 10-25-2023 End: 12-25-2023 Natriuretic peptide.B prohormone N-Terminal [Mass/volume] in Serum or Plasma NT PRO BNP Lab Routine Dysplastic tricuspid valve Expected: 10/25/2023, Expires: 12/25/2023 [facility] Work Phone: Comment on above: Expected: 10/25/2023 , Expires: 12/25/2023 Start: 06-26-2023 Behavioral Health Screening Behavioral Health Screening [facility] Start: 02-24-2023 Covid-19 Vaccine ( season) Covid-19 Vaccine ( season) [facility] Start: 02-24-2023 Influenza vaccination INFLUENZ A (Season Ended) [facility] Start: 06-26-2022 DEPRESSION ASSESSMENT DEPRESSION ASS ESSMENT [facility] Start: 02-24-2022 Influenza vaccination INFLUENZA (#1) [facility] Start: 06-26-2021 DEPRESSION ASSESSMENT DEPRESSION ASS ESSMENT [facility] Start: 2009 DTaP,Tdap and Td Vac cines (1 - Tdap) DTaP,Tdap and Td Vaccines (1 - Tdap) [facility] Start: 2009 Hepatitis B Vaccine (1 of 3 - 19+ 3-dose series) Hepatitis B Vaccine (1 of 3 - 19+ 3-dose series) [facility] Start: 2009 Urine microalbumin profile [facility] Start: 2008 Adult BMI Screening Adult BMI Screen ing [facility] Start: 2008 ANNUAL PCP TEAM C4 PLANNER CELESTINO DISEASE VISIT ANNUAL PCP TEAM CHRONIC DISEASE VISIT [facility] Start: 2008 Anxiety Screening Anxiety Screening [facility] Start: 2008 BP CONTROLLED (<130/80) BP CONTROLLE D (<130/80) [facility] Start: 2008 Depression Screening Depression Scre ening [facility] Start: 2008 HEPATITIS C SCREENING HEPATITIS C [facility] Start: 2008 Hepatitis C screening Hepatitis C [facility] Start: 2008 HIV SCREENING HIV SCREENING [facility] Start: 2008 HIV screening HIV Screening [facility] Start: 2002 Depression Screening Depression Scre ening [facility] Start: 2002 Tobacco Screening Tobacco Screening [facility] Start: 1996 PNEUMOCOCCAL (1 - PCV) PNEUMOCOCCAL (1 - PCV) [facility] Start: 1990 COVID-19 VACCINE (#1) COVID-19 VACCI NE (#1) [facility] Start: 1990 HEPATITIS B (1 of 3 - 3-dose series) HEPATITIS B (1 of 3 - 3-dose series) [facility] End: 05-30-2023 ECG COMPLETE ECG COMPLETE ECG Routine S/P tricuspid valve repair 1 Occurrences starting 05/30/2022 until 05/30/2023 [facility] Work Phone: Comment on above: 1 Occurrences starti ng 05/30/2022 until 05/30/2023 End: 11-04-2024 ECG COMPLETE ECG COMPLETE ECG Routine Dysplastic tricuspid valve 1 Occurrences starting 11/05/2023 until 11/04/2024 [facility] Comment on above: 1 Occurrences starti ng 11/05/2023 until 11/04/2024 End: 09-12-2025 ECG COMPLETE ECG COMPLETE ECG Routine Dysplastic tricuspid valve 1 Occurrences starting 09/12/2024 until 09/12/2025 [facility] Comment on above: 1 Occurrences starti ng 09/12/2024 until 09/12/2025 End: 11-04-2024 ECHO SPECIALIST COMPLEX ADULT CONGENITAL ECHO SPECIALIST COMPLEX ADULT CONGENITAL Cardiology Routine Dysplastic tricuspid valve 1 Occurrences starting 11/05/2023 until 11/04/2024 [facility] Comment on above: 1 Occurrences starti ng 11/05/2023 until 11/04/2024 End: 09-12-2025 ECHO SPECIALIST COMPLEX ADULT CONGENITAL ECHO SPECIALIST COMPLEX ADULT CONGENITAL Cardiology Routine Dysplastic tricuspid valve 1 Occurrences starting 09/12/2024 until 09/12/2025 [facility] Comment on above: 1 Occurrences starti ng 09/12/2024 until 09/12/2025 End: 05-30-2023 Echocardiography ECHO Cardiology Routine S/P tricuspid valve repair 1 Occurrences starting 05/30/2022 until 05/30/2023 [facility] Work Phone: Comment on above: 1 Occurrences starti ng 05/30/2022 until 05/30/2023 End: 09-06-2023 Echocardiography ECHO Cardiology Routine Dysplastic tricuspid valve 1 Occurrences starting 09/05/2022 until 09/06/2023 [facility] Work Phone: Comment on above: 1 Occurrences starti ng 09/05/2022 until 09/06/2023 End: 11-19-2023 MRA CHEST CARDIOVASCULAR WO IVCON MRA CHEST CARDIOVASCULAR WO IVCON Radiology Routine Dysplastic tricuspid valve 1 Occurrences starting 10/20/2022 until 11/19/2023 [facility] Work Phone: Comment on above: 1 Occurrences starti ng 10/20/2022 until 11/19/2023 End: 10-20-2022 MRA CHEST CARDIOVASCULAR WO IVCON MRA CHEST CARDIOVASCULAR WO IVCON Radiology Routine Dysplastic tricuspid valve 1 Occurrences starting 10/20/2022 until 10/20/2022 [facility] Work Phone: Comment on above: 1 Occurrences starti ng 10/20/2022 until 10/20/2022 End: 11-19-2023 MRI CARDIAC MORPH FUNC WO IVCON MRI CARDIAC MORPH FUNC WO IVCON Radiology Routine Cardiomyopathy, unspecified type (HCC) 1 Occurrences starting 10/20/2022 until 11/19/2023 [facility] Work Phone: Comment on above: 1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 COMPLEX ADULT CONGENITAL ECHO TTHRC R-T 2D W/WOM-MODE COMPL SPEC&[place] [address] [place] [address] [address] Referral ID Status Reason Start Date Expiration Date V isits Requested Visits Authorized [id number] Closed Auto-Generate d Referral 11/01/2023 10/31/2024 1 1 [facility] for visit Narrative* Transition of Care (Routine) - Closed Specialty Diagnoses / Procedures Referred By Ariela brown Referred To Contact [facility] Procedures CARDIOVASCULAR MEDICINE OP [place] [address] [place] [address] Phone: tel: fax: [facility] [address] [place] [address] Referral ID Status Reason Start Date Expiration Date V isits Requested Visits Authorized [id number] Closed PCP Requested Referral 08/06/2024 11/04/2024 1 1 [facility] Summary Purpose Family History No Family History [...] Referred By Ariela t Referred To Contact [facility] Diagnoses Dysplastic tricuspid valve Procedures MRA CHEST CARDIOVASCULAR WO IVCON MRA CHEST WITH [place] [address] [place] [address] Mr Imaging Referral ID Status Reason Start Date Expiration Date V isits Requested Visits Authorized [id number] Closed Auto-Generate d Referral 10/20/2022 11/19/2023 1 1 Specialty Diagnoses / Procedures Referred By Ariela t Referred To Contact [facility] Diagnoses Cardiomyopathy, unspecified type (HCC) Procedures MRI CARDIAC MORPH FUNC WO IVCON CARDIAC MRI MORPHOLOGY & FUNCTION [place] [address] [place] [address] Mr Imaging Referral ID Status Reason Start Date Expiration Date V isits Requested Visits Authorized [id number] Closed Auto-Generate d Referral 10/20/2022 11/19/2023 1 [...] Appointment Specialty Diagnoses / Procedures Referred By Ariela t Referred To Contact [facility] Diagnoses Dysplastic tricuspid valve Procedures MRI CARDIAC MORPH FUNC WO/W IVCON CARDIAC MRI W/WO CONTRAST & FURTHER SEQ Esme Calderon MD [address] [place] [address] Mr Imaging Referral ID Status Reason Start Date Expiration Date V isits Requested Visits Authorized [id number] Closed Auto-Generate d Referral 07/01/2022 07/31/2023 1 [...] or prosecute any alcohol or drug abuse patient.[facility] the event this information is protected by the Federal Confidentiality of Alcohol and Drug Abuse Patient Records regulations: The Federal rules restrict any use of the information to criminally investigate or prosecute any alcohol or drug abuse patient.[facility] the event this information is protected by the Federal Confidentiality of Alcohol and Drug Abuse Patient Records regulations: The Federal rules restrict any use of the information to criminally investigate or prosecute any alcohol or drug abuse patient.[facility] the event this information is protected by the Federal Confidentiality of Alcohol and Drug Abuse Patient Records regulations: The Federal rules restrict any use of the information to criminally investigate or prosecute any alcohol or drug abuse patient.[facility] the event this information is protected by the Federal Confidentiality of Alcohol and Drug Abuse Patient Records regulations: The Federal rules restrict any use of the information to criminally investigate or prosecute any alcohol or drug abuse patient.[facility] the event this information is protected by the Federal Confidentiality of Alcohol and Drug Abuse Patient Records regulations: The Federal rules restrict any use of the information to criminally investigate or prosecute any alcohol or drug abuse patient.[facility] the event this information is protected by the Federal Confidentiality of Alcohol and Drug Abuse Patient Records regulations: The Federal rules restrict any use of the information to criminally investigate or prosecute any alcohol or drug abuse patient.[facility] Center[facility] the event this information is protected by the Federal Confidentiality of Alcohol and Drug Abuse Patient Records regulations: The Federal rules restrict any use of the information to criminally investigate or prosecute any alcohol or drug abuse patient.[facility] Center[facility] the event this information is protected by the Federal Confidentiality of Alcohol and Drug Abuse Patient Records regulations: The Federal rules restrict any use of the information to criminally investigate or prosecute any alcohol or drug abuse patient.[facility] Center[facility] the event this information is protected by the Federal Confidentiality of Alcohol and Drug Abuse Patient Records regulations: The Federal rules restrict any use of the information to criminally investigate or prosecute any alcohol or drug abuse patient.[facility] Center[facility] the event this information is protected by the Federal Confidentiality of Alcohol and Drug Abuse Patient Records regulations: The Federal rules restrict any use of the information to criminally investigate or prosecute any alcohol or drug abuse patient.[facility] Care Teams (unrecognized sec tion and content) [...] Provider Active Sta rt: June 18, 2024 Keno Manager Relationship Specialty Start Date End Date Carlos Arceo Sr. [address] [place] [address] PCP - General Family Medicine 10/15/20 Esme Calderon MD [address] [place] [address] Primary Staff Physician Cardiology 08/18/21 Keno Manager Relationship Specialty Start Date End Date Carlos Arceo Jose Manuel Sr. [address] [place] [address] PCP - General Family Medicine 10/15/20 Esme Calderon MD [address] [place] [address] Primary Staff Physician Cardiology 08/18/21 Keno Manager Relationship Specialty Start Date End Date Carlos Arceo Sr. [address] [facility] [place] [address] PCP - General Family Medicine 10/15/20 Esme Calderon MD [address] [place] [address] Primary Staff Physician Cardiology 08/18/21 Keno Manager Relationship Specialty Start Date End Date Carlos Arceo Sr. [address] [facility] [place] [address] PCP - General Family Medicine 10/15/20 Esme Calderon MD [address] [place] [address] Primary Staff Physician Cardiology 08/18/21 Keno Manager Relationship Specialty Start Date End Date Carlos Arceo Sr. [address] [facility] [place] [address] PCP - General Family Medicine 10/15/20 Esme Calderon MD [address] [place] [address] Primary Staff Physician Cardiology 08/18/21 Keno Manager Relationship Specialty Start Date End Date Carlos Arceo Sr. [address] [facility] [place] [address] PCP - General Family Medicine 10/15/20 Esme Calderon MD [address] [place] [address] Primary Staff Physician Cardiology 08/18/21 Keno Manager Relationship Specialty Start Date End Date Carlos Arceo Sr. [address] [facility] [place] [address] PCP - General Family Medicine 10/15/20 Esme Calderon MD [address] [place] [address] Primary Staff Physician Cardiology 08/18/21 Keno Manager Relationship Specialty Start Date End Date Carlos Arceo Sr., PCP - General Family Medicine 10/15/20 Esme Calderon MD [address] [place] [address] Primary Staff Physician Cardiology 08/18/21 Team Status: [...] Provider Active S tart: December 29, 2023 Keno Manager Relationship Specialty Start Date End Date Carlos Arceo Sr., DO PCP - General Family Medicine 10/15/20 Esme Calderon MD [address] [place] [address] Primary Staff Physician Cardiology 08/18/21 Keno Manager Relationship Specialty Start Date End Date No [place] [address] PCP - General Family Medicine 06/17/18 Keno Manager Relationship Specialty Start Date End Date Carlos Arceo Sr., PCP - General Family Medicine 10/15/20 09/11/24 Esme Calderon MD [address] [place] [address] Primary Staff Physician Cardiology 08/18/21 Keno Manager Relationship Specialty Start Date End Date Esme Calderon MD [address] [place] [address] Primary Staff Physician Cardiology 08/18/21 (unrecognized sect ion and content) No Status Records FoundNo Status Records FoundNo Status Records FoundNo Status Records Found INFORMATION SOURCE (unrecogn ized section and content) DATE CREATED AUTHOR 06/28/2022 [facility] DATE CREATED AUTHOR AUTHOR'S ORGANIZ ATION 08/14/2024 [facility] DATE CREATED AUTHOR AUTHOR'S ORGANIZ ATION 10/10/2024 [facility] DATE CREATED AUTHOR AUTHOR'S ORGANIZ ATION 04/03/2025 [facility] Goals (unrecognized section and content) Goals [...] BE BASED ON THE PRIMARY CLINICAL RECORDS. [employer] [facility]. provides no warranty or guarantee of the accuracy or completeness of information in this document.
--- OUTSIDE RECORDS SUMMARY | 2025-04-05 07:55 | XMS_ITS | Encounter Summary ---
Author Organization [facility] Address [address] [place] [address] Care Team Providers Care Payroll Analyst Name Role Phone House Sr., Carlos VALENZUELA Primary Care Provider + Carmen Hdz MD Unavailable [phone] Source Comments In the event this information is protected by the Federal Confidentiality of Alcohol and Drug AbusePatient Records regulations: The Federal rules restrict any use of the information to criminally investigate or prosecute any alcohol or drug abuse patient.[facility] Encounter Details Date Type Department Care Team (Late st Contact Info) Description 10/18/2022 [place] [address] Provider, [facility] MRI Screening Questionnaire Completion Required Social History Tobacco Use Types Packs/Day Years Used Date Smoking Tobacco: Every Day Cigarettes 0.3 13.9 Started: 05/09/2011 Smokeless Tobacco: Never Alcohol Use [...] N ot on file 07/17/2022 Data from: https://www.neighborhoodatlas.medicine.[facility]/. Last address used for calculation [address] [...] No 08/02/2016 1:52 PM EST Celestino Copeland APRN.PRODUCT ACCOUNTANT * Are you blind or do you have serious difficulty seeing, even when wearing glasses? Answer Date of Assessment Author No 08/02/2016 1:52 PM Celestino Thapa APRN.PRODUCT ACCOUNTANT * Do you have serious difficulty walking or climbing stairs? Answer Date of Assessment Author No 08/02/2016 1:52 PM Celestino Thapa APRN.PRODUCT ACCOUNTANT * Do you have difficulty dressing or bathing? Answer Date of Assessment Author No 08/02/2016 1:52 PM Celestino Thapa APRN.PRODUCT ACCOUNTANT * Because of a physical, mental, or emotional condition, do you have difficulty doing errands alone such as visiting a doctor's office or shopping? Answer Date of Assessment Author No 08/02/2016 1:52 PM EST Celestino Copeland APRN.PRODUCT ACCOUNTANT documented as of this encounter Mental Status * Because of a physical, mental, or emotional condition, do you have serious difficulty concentrating, remembering, or making decisions? Answer Entry Date Author No 08/02/2016 1:52 PM Celestino Thapa APRN.PRODUCT ACCOUNTANT documented in this encounter Plan of Treatment Not on file documented as of this encounter Visit Diagnoses Not on filedocumented in this encounter Care Teams Payroll Analyst Relationship Specialty Start Date End Date Carlos Sauceda Sr., DO PCP - General Family Medicine 10/15/20 09/11/24 Carmen Hdz MD [address] [place] [id number] Primary Staff Physician Cardiology 08/18/21 documented as of this encounter
--- OUTSIDE RECORDS SUMMARY | 2025-04-05 07:55 | XMS_ITS | Clinical Summary ---
Author Organization [facility] Address [address] [place] [address] Care Team Providers Care Presetter Operator Name Role Phone Unavailable Primary Care Provider [...]
--- OUTSIDE RECORDS SUMMARY | 2025-04-05 07:55 | XMS_ITS | Encounter Summary ---
Author Organization [facility] Address [address] [place] [address] Care Team Providers Care Aviation Warfare Systems Operator Name Role Phone House Sr., Carlos VALENZUELA Primary Care Provider + House Sr., Carlos VALENZUELA Primary Care Provider + Carmen Hdz MD Unavailable [phone] Source Comments In the event this information is protected by the Federal Confidentiality of Alcohol and Drug AbusePatient Records regulations: The Federal rules restrict any use of the information to criminally investigate or prosecute any alcohol or drug abuse patient.[facility] Encounter Details Date Type Department Care Team (Late st Contact Info) Description 11/04/2016 Patient Msg Cardiology [address] [place] [address] Zo Izquierdo APRN.RN MATERNITY [address] [place] [address] Follow-up to your last appt Social History Tobacco Use Types Packs/Day Years Used Date Smoking Tobacco: Every Day Cigarettes 0.5 13.9 Started: 05/09/2011 Smokeless Tobacco: Never Alcohol [...] Author No 08/02/2016 1:52 PM Celestino Thapa, MANAGER DISH.RN MATERNITY * Are you blind or do you have serious difficulty seeing, even when wearing glasses? Answer Date of Assessment Author No 08/02/2016 1:52 PM Celestino Thapa, MANAGER DISH.RN MATERNITY * Do you have serious difficulty walking or climbing stairs? Answer Date of Assessment Author No 08/02/2016 1:52 PM Celestino Thapa APRN.RN MATERNITY * Do you have difficulty dressing or bathing? Answer Date of Assessment Author No 08/02/2016 1:52 PM Celestino Thapa, MANAGER DISH.RN MATERNITY * Because of a physical, mental, or emotional condition, do you have difficulty doing errands alone such as visiting a doctor's office or shopping? Answer Date of Assessment Author No 08/02/2016 1:52 PM Celestino Thapa APRN.RN MATERNITY documented as of this encounter Mental Status * Because of a physical, mental, or emotional condition, do you have serious difficulty concentrating, remembering, or making decisions? Answer Entry Date Author No 08/02/2016 1:52 PM Celestino Thapa, MANAGER DISH.RN MATERNITY documented in this encounter Plan of Treatment Not on file documented as of this encounter Visit Diagnoses Not on filedocumented in this encounter Care Teams Aviation Warfare Systems Operator Relationship Specialty Start Date End Date Carlos Sauceda Sr., PCP - General Family Medicine 04/07/16 06/26/18 Carlos Sauceda Sr., PCP - General Family Medicine 10/15/20 09/11/24 Carmen Hdz MD [address] [place] [address] Primary Staff Physician Cardiology 08/18/21 documented as of this encounter
--- OUTSIDE RECORDS SUMMARY | 2025-04-05 07:55 | XMS_ITS | Encounter Summary ---
Author Organization [facility] Address [facility] [place] [address] Care Team Providers Care Laborer Chicken [employer] Name Role Phone House Sr., Carlos VALENZUELA Primary Care Provider + Carmen Hdz MD Unavailable [phone] Source Comments In the event this information is protected by the Federal Confidentiality of Alcohol and Drug AbusePatient Records regulations: The Federal rules restrict any use of the information to criminally investigate or prosecute any alcohol or drug abuse patient.[facility] Encounter Details Date Type Department Care Team (Late st Contact Info) Description 02/16/2022 Patient Msg Cardiology [address] [place] [id number] Carmen Hdz MD [address] [place] [address] Request an Appointment Social History [...] N ot on file 05/31/2020 Data from: https://www.neighborhoodatlas.[facility]/. Last address used for calculation Not [...] Author No 08/02/2016 1:52 PM Celestino Thapa APRN.CHART CHANGER * Are you blind or do you have serious difficulty seeing, even when wearing glasses? Answer Date of Assessment Author No 08/02/2016 1:52 PM Celestino Thapa APRN.CHART CHANGER * Do you have serious difficulty walking or climbing stairs? Answer Date of Assessment Author No 08/02/2016 1:52 PM Celestino Thapa APRN.CHART CHANGER * Do you have difficulty dressing or bathing? Answer Date of Assessment Author No 08/02/2016 1:52 PM Celestino Thapa APRN.CHART CHANGER * Because of a physical, mental, or emotional condition, do you have difficulty doing errands alone such as visiting a doctor's office or shopping? Answer Date of Assessment Author No 08/02/2016 1:52 PM Celestino Thapa APRN.CHART CHANGER documented as of this encounter Mental Status * Because of a physical, mental, or emotional condition, do you have serious difficulty concentrating, remembering, or making decisions? Answer Entry Date Author No 08/02/2016 1:52 PM Celestino Thapa APRN.CHART CHANGER documented in this encounter Plan of Treatment Not on file documented as of this encounter Visit Diagnoses Not on filedocumented in this encounter Care Teams Laborer Chicken Farm Relationship Specialty Start Date End Date Carlos Sauceda Sr., DO PCP - General Family Medicine 10/15/20 09/11/24 Carmen Hdz MD [address] [place] [address] Primary Staff Physician Cardiology 08/18/21 documented as of this encounter
--- OUTSIDE RECORDS SUMMARY | 2025-04-05 07:55 | XMS_ITS | Encounter Summary ---
Author Organization [facility] Address [address] [place] [address] Care Team Providers Care Pharmacy Analyst Name Role Phone House Sr., Carlos VALENZUELA Primary Care Provider + Carmen Hdz MD Unavailable [phone] Source Comments In the event this information is protected by the Federal Confidentiality of Alcohol and Drug AbusePatient Records regulations: The Federal rules restrict any use of the information to criminally investigate or prosecute any alcohol or drug abuse patient.[facility] Encounter Details Date Type Department Care Team (Late st Contact Info) Description 03/03/2022 Patient Msg Cardiology [address] [place], [place] [phone] Provider, [facility]cf Appt Request Social History Tobacco [...] N ot on file 05/31/2020 Data from: https://www.neighborhoodatlas.medicine.[facility]/. Last address used for calculation Not on [...] Author No 08/02/2016 1:52 PM Celestino Thapa APRN.RETICLE PRINTER * Are you blind or do you have serious difficulty seeing, even when wearing glasses? Answer Date of Assessment Author No 08/02/2016 1:52 PM Celestino Thapa APRN.RETICLE PRINTER * Do you have serious difficulty walking or climbing stairs? Answer Date of Assessment Author No 08/02/2016 1:52 PM Celestino Thapa APRN.RETICLE PRINTER * Do you have difficulty dressing or bathing? Answer Date of Assessment Author No 08/02/2016 1:52 PM Celestino Thapa APRN.RETICLE PRINTER * Because of a physical, mental, or emotional condition, do you have difficulty doing errands alone such as visiting a doctor's office or shopping? Answer Date of Assessment Author No 08/02/2016 1:52 PM Celestino Thapa APRN.RETICLE PRINTER documented as of this encounter Mental Status * Because of a physical, mental, or emotional condition, do you have serious difficulty concentrating, remembering, or making decisions? Answer Entry Date Author No 08/02/2016 1:52 PM Celestino Thapa APRN.RETICLE PRINTER documented in this encounter Plan of Treatment Not on file documented as of this encounter Visit Diagnoses Not on filedocumented in this encounter Care Teams Pharmacy Analyst Relationship Specialty Start Date End Date Carlos Sauceda Sr., DO PCP - General Family Medicine 10/15/20 09/11/24 Carmen Hdz MD [address] [place] [phone] Primary Staff Physician Cardiology 08/18/21 documented as of this encounter
--- NOTE | 2025-04-05 07:56 | XR_ITS ---
The [address] [address] Patient Name: ALLIE TORRE MRN: [id number] date: 1990 Sex: M Assigned Patient Location: US Current Patient Location: US Accession/Order Number: [id number] Exam Date: 04/05/2025 08:08 Report Date: 04/05/2025 09:46 At the request of: JACQUELIN POST NP Procedure: XR abdomen 1V BILATERAL RENAL AND BLADDER ULTRASOUND/KUB CLINICAL HISTORY: Kidney stones COMPARISON: None ULTRASOUND KIDNEYS: Estimation of renal size is approximately 10.0 x 5.5 x 5.2 cm on the right and 10.1 x 5.5 x 5.3 cm on the left. No contour deforming mass, shadowing stone or hydronephrosis. The urinary bladder is partially distended with a volume of 18 ml. No shadowing stone or focal lesion. KUB: Nonspecific bowel gas pattern. No radiopaque calcifications overlying the renal shadows. Osseous structures unremarkable. IMPRESSION: NO OBSTRUCTIVE UROPATHY. Negative for nephrolithiasis. Impression dictated by: Aj Keyes M.D. 04/05/2025 9:46 AM Dictation Location: [place] [address] Electronically authenticated by: [id number] Y Date: 04/05/2025 09:46
== END 2025-04-05 07:54 | disposition home or self-care (01) ==
LOC: US 07:53
PROVIDERS: Visit Provider Nurse Practitioner Family
DX: R10.9 Unspecified abdominal pain (principal)
CPT/HCPCS: 74018; 76775

== ENCOUNTER 2025-04-10 09:21 | Emergency (ER) | payer OTHER, SELFPAY ==
--- OUTSIDE RECORDS SUMMARY | 2013-09-19 09:00 | XMS_ITS | Continuity of Care Document ---
Author Organization [facility] Address [address] [place] [address] Phone Care Team Providers Care Client Success Director Name Role Phone Garrett LEIVA , September Unavailable Unavailable Allergies, Adverse Reactions, Alerts Substance Reaction Status Criticality penicillin G Active No Information Medications Medication Instructions Dosage Effective Dates (start - stop) Status Comments [place] 5 mg-325 mg tablet take 1 tablet [...] Diagnoses Date Provider Providers Copied on Encounter [facility], [address] [place] [address], [id number], [place] tel:[phone] Dental Clinic Dental examination Garrett DMD September. [address] [place], [place], [id number], [place]. tel:[phone] [facility], [address] [place] [address], [id number], tel:[phone] Dental Clinic Dental examination Garrett DMD Briseida. [address] [place], [place], [id number], [place]. tel:[phone] [facility], [address] [place] [address], [id number], [place] tel:[phone] Dental Clinic Dental examination Garrett DMD September. [address] [place], [place], [id number], [place]. tel:[phone] Family History Family Member Type Diagnosis Age [...]
[2025-04-10] VITALS (19 sets, daily range): BP systolic 112–171; BP diastolic 63–96; PULSE 57–112; TEMP 37.2; O2SAT 98–100; BMI 30.8
--- NOTE | 2025-04-10 09:34 | XR_ITS ---
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 COMPARISON: 06/17/2024 There are median sternotomy wires and a prosthetic heart valve. The heart is top normal in size. There is no vascular congestion. The lungs, as visualized, are clear. There is no effusion or pneumothorax. The osseous structures are intact. XR/XR chest 1V IMPRESSION: NO ACUTE FINDINGS. Impression dictated by: Becca Shah M.D. 04/10/2025 10:15 AM Dictation Location: [place] [address] Electronically authenticated by: [id number] Y Date: 04/10/2025 10:15
--- NOTE | 2025-04-10 09:34 | ECG_ITS ---
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
[2025-04-10 09:43] LABS: Hematocrit 43.7 % (42.0-54.0); Hemoglobin 15.3 g/dL (14.0-18.0); Immature Granulocytes Abs Auto 0.03 10^3/uL (0.00-0.03); Immature Granulocytes Pct Auto 0.3 % (0.0-0.5); Lymphocytes Absolute Auto 2.5 10^3/uL (1.2-3.8); Mean Corpuscular HGB Conc 35.0 g/dL (29.9-35.2); Mean Corpuscular Hemoglobin 30.6 pg (25.9-34.0); Mean Corpuscular Volume 87.4 fL (80.0-94.0); Platelet Count 298 10^3/uL (150-450); Red Blood Count 5.00 10^6/uL (4.70-6.10); White Blood Count 9.3 10^3/uL (4.0-11.0)
[2025-04-10 10:02] LABS: Alanine Aminotransferase 28 U/L (16-63); Albumin Globulin Ratio 1.2; Albumin Level 4.7 g/dL (3.4-5.0); Alkaline Phosphatase 97 U/L (46-116); Anion Gap 16.4; Aspartate Amino Transferase 15 U/L (15-37); Blood Urea Nitrogen 14.0 mg/dL (7.0-18.0); Calcium 9.6 mg/dL (8.5-10.1); Carbon Dioxide 26.7 mmol/L (21.0-32.0); Chloride 101 mmol/L (98-107); Estimated GFR (African America >60 (>=60 mL/min/1.73m^2); Estimated GFR (Non-African Ame >60 (>=60 mL/min/1.73m^2); Globulin 4.0 g/dL; Glucose 102 mg/dL (74-106); Potassium 4.1 mmol/L (3.5-5.1); Sodium 140 mmol/L (136-145); Total Protein 8.7 g/dL (6.4-8.2)
--- OUTSIDE RECORDS SUMMARY | 2025-04-10 10:03 | XMS_ITS | Clinical Summary ---
Author Organization [employer] tem Address [id number] [address] [place] [address] Care Team Providers Care Earth Science Laboratory Technician Name Role Phone No Pcp, No Pcp [...] Medical Devices Not on file Care Teams Earth Science Laboratory Technician Relationship Specialty Start Date End Date No Pcp, [place] [address] PCP - General Family Medicine 06/17/18
--- OUTSIDE RECORDS SUMMARY | 2025-04-10 10:03 | XMS_ITS | Encounter Summary ---
Author Organization [facility] Address [address] [place] [address] Care Team Providers Care Secretary Name Role Phone House Sr., Carlos VALENZUELA Primary Care Provider + Carmen Hdz MD Unavailable [phone] Source Comments In the event this information is protected by the Federal Confidentiality of Alcohol and Drug AbusePatient Records regulations: The Federal rules restrict any use of the information to criminally investigate or prosecute any alcohol or drug abuse patient.[facility] Encounter Details Date Type Department Care Team (Late st Contact Info) Description 10/18/2022 [place] [address] Provider, Ccf MRI Screening Questionnaire Completion Required [...] N ot on file 07/17/2022 Data from: https://www.neighborhoodatlas.medicine.[facility]/. Last address used for calculation [address] [...] No 08/02/2016 1:52 PM EST Celestino Copeland APRN.FIBERGLASS PRODUCT TESTER * Are you blind or do you have serious difficulty seeing, even when wearing glasses? Answer Date of Assessment Author No 08/02/2016 1:52 PM Celestino Thapa APRN.FIBERGLASS PRODUCT TESTER * Do you have serious difficulty walking or climbing stairs? Answer Date of Assessment Author No 08/02/2016 1:52 PM Celestino Thapa APRN.FIBERGLASS PRODUCT TESTER * Do you have difficulty dressing or bathing? Answer Date of Assessment Author No 08/02/2016 1:52 PM Celestino Thapa APRN.FIBERGLASS PRODUCT TESTER * Because of a physical, mental, or emotional condition, do you have difficulty doing errands alone such as visiting a doctor's office or shopping? Answer Date of Assessment Author No 08/02/2016 1:52 PM EST Celestino Copeland APRN.FIBERGLASS PRODUCT TESTER documented as of this encounter Mental Status * Because of a physical, mental, or emotional condition, do you have serious difficulty concentrating, remembering, or making decisions? Answer Entry Date Author No 08/02/2016 1:52 PM Celestino Thapa APRN.FIBERGLASS PRODUCT TESTER documented in this encounter Plan of Treatment Not on file documented as of this encounter Visit Diagnoses Not on filedocumented in this encounter Care Teams Secretary Relationship Specialty Start Date End Date Carlos Sauceda Sr., DO PCP - General Family Medicine 10/15/20 09/11/24 Carmen Hdz MD [address] [place] [id number] Primary Staff Physician Cardiology 08/18/21 documented as of this encounter
--- OUTSIDE RECORDS SUMMARY | 2025-04-10 10:03 | XMS_ITS | Encounter Summary ---
Author Organization [facility] Address [facility] [place] [address] Care Team Providers Care Blending Kettle Tender Name Role Phone House Sr., Carlos VALENZUELA Primary Care Provider + Carmen Hdz MD Unavailable [phone] Source Comments In the event this information is protected by the Federal Confidentiality of Alcohol and Drug AbusePatient Records regulations: The Federal rules restrict any use of the information to criminally investigate or prosecute any alcohol or drug abuse patient.[facility] Encounter Details Date Type Department Care Team (Late st Contact Info) Description 02/16/2022 Patient Msg Cardiology [address] [place] [id number] Carmen Hdz MD [address] [place] [address] Request an Appointment Social History [...] N ot on file 05/31/2020 Data from: https://www.neighborhoodatlas.[facility]/. Last address used for calculation Not [...] Author No 08/02/2016 1:52 PM Celestino Thapa APRN.LABORER DRYING DEPARTMENT * Are you blind or do you have serious difficulty seeing, even when wearing glasses? Answer Date of Assessment Author No 08/02/2016 1:52 PM Celestino Thapa APRN.LABORER DRYING DEPARTMENT * Do you have serious difficulty walking or climbing stairs? Answer Date of Assessment Author No 08/02/2016 1:52 PM Celestino Thapa APRN.LABORER DRYING DEPARTMENT * Do you have difficulty dressing or bathing? Answer Date of Assessment Author No 08/02/2016 1:52 PM Celestino Thapa APRN.LABORER DRYING DEPARTMENT * Because of a physical, mental, or emotional condition, do you have difficulty doing errands alone such as visiting a doctor's office or shopping? Answer Date of Assessment Author No 08/02/2016 1:52 PM Celestino Thapa APRN.LABORER DRYING DEPARTMENT documented as of this encounter Mental Status * Because of a physical, mental, or emotional condition, do you have serious difficulty concentrating, remembering, or making decisions? Answer Entry Date Author No 08/02/2016 1:52 PM Celestino Thapa APRN.LABORER DRYING DEPARTMENT documented in this encounter Plan of Treatment Not on file documented as of this encounter Visit Diagnoses Not on filedocumented in this encounter Care Teams Blending Kettle Tender Relationship Specialty Start Date End Date Carlos Sauceda Sr., DO PCP - General Family Medicine 10/15/20 09/11/24 Carmen Hdz MD [address] [place] [address] Primary Staff Physician Cardiology 08/18/21 documented as of this encounter
--- OUTSIDE RECORDS SUMMARY | 2025-04-10 10:03 | XMS_ITS | Encounter Summary ---
Author Organization [facility] Address [address] [place] [address] Care Team Providers Care Commodity Manager Name Role Phone House Sr., Carlos VALENZUELA Primary Care Provider + Carmen Hdz MD Unavailable [phone] Source Comments In the event this information is protected by the Federal Confidentiality of Alcohol and Drug AbusePatient Records regulations: The Federal rules restrict any use of the information to criminally investigate or prosecute any alcohol or drug abuse patient.[facility] Encounter Details Date Type Department Care Team (Late st Contact Info) Description 03/03/2022 Patient Msg Cardiology [address] [place], [place] [phone] Provider, Ccf Appt Request Social History Tobacco [...] N ot on file 05/31/2020 Data from: https://www.neighborhoodatlas.medicine.[facility]/. Last address used for calculation Not [...] Author No 08/02/2016 1:52 PM Celestino Thapa APRN.CHIEF ENTERPRISE ARCHITECT * Are you blind or do you have serious difficulty seeing, even when wearing glasses? Answer Date of Assessment Author No 08/02/2016 1:52 PM Celestino Thapa APRN.CHIEF ENTERPRISE ARCHITECT * Do you have serious difficulty walking or climbing stairs? Answer Date of Assessment Author No 08/02/2016 1:52 PM Celestino Thapa APRN.CHIEF ENTERPRISE ARCHITECT * Do you have difficulty dressing or bathing? Answer Date of Assessment Author No 08/02/2016 1:52 PM Celestino Thapa APRN.CHIEF ENTERPRISE ARCHITECT * Because of a physical, mental, or emotional condition, do you have difficulty doing errands alone such as visiting a doctor's office or shopping? Answer Date of Assessment Author No 08/02/2016 1:52 PM Celestino Thapa APRN.CHIEF ENTERPRISE ARCHITECT documented as of this encounter Mental Status * Because of a physical, mental, or emotional condition, do you have serious difficulty concentrating, remembering, or making decisions? Answer Entry Date Author No 08/02/2016 1:52 PM Celestino Thapa APRN.CHIEF ENTERPRISE ARCHITECT documented in this encounter Plan of Treatment Not on file documented as of this encounter Visit Diagnoses Not on filedocumented in this encounter Care Teams Commodity Manager Relationship Specialty Start Date End Date Carlos Sauceda Sr., DO PCP - General Family Medicine 10/15/20 09/11/24 Carmen Hdz MD [address] [place] [phone] Primary Staff Physician Cardiology 08/18/21 documented as of this encounter
--- OUTSIDE RECORDS SUMMARY | 2025-04-10 10:03 | XMS_ITS | Clinical Summary ---
Author Organization [facility] Address [address] [place] [address] Care Team Providers Care Apartment Leasing Consultant Name Role Phone Unavailable Primary Care Provider [...]
--- OUTSIDE RECORDS SUMMARY | 2025-04-10 10:03 | XMS_ITS | Clinical Summary ---
Author Organization [facility] Address [address] [place] [address] Care Team Providers Care Chip Drier Name Role Phone Carmen Hdz MD Unavailable [phone] Allergies Active Allergy Reactions Criticality Noted Date Comments Diphenhydramine Rash,Itching 01/11/2019 Penicillins Hives 09/10/2004 Medications famotidine (PEPCID) 20 mg tablet Take 20 mg by mouth twice daily as needed. 06/14/2022 Active lisinopril (ZESTRIL) 10 mg tablet TAKE 1 TABLET BY MOUTH EVERY DAY 90 tablet 3 10/10/2024 Active Active Problems Patient Care Coordination No te Formatting of this note migh t be different from the original. Indication for hospital admission: Ebstein's anamoly, TR LVEF: Normal RVF: Normal PMH/PSH: TR, anxiety, smoker Surgery: 07/29/2016 TVr with annuloplasty ring Airway Difficulty: Grade I - No special instrumentation OR Course: Uncomplicated Pacing wires: No Postoperative Course: Gustavo is a 26 year old male with a dysplastic tricuspid valve with severe TR who is hemodynamically stable on POD #1 s/p tricuspid with #34 annuloplasty ring and bicuspidation. No intra-operative or post-operative complications. He is hemodynamically stable on no inotropic support, pain management has been major issue on Dilaudid HUMAN FACTORS ENGINEER with basal rate 0.2mg/hr with demand of 0.2mg every 6 minutes. He attempt 100 times over night with 32 doses given. A/Plan: -s/p TV repair. Check echo today. ASA. -Post-op pain.Persistent. Scheduled tylenol & NSAID. Add ultram & continue oxycodone on as needed basis. -Smoker - continue Nicotine patch -Post-op FVO much improved, taper lasix. -Dispo: From [place]. Supportive family. No skilled needs. Request OPD & scheduled cards. Target discharge Tues. Problem Noted Date Diagnosed Date Obesity, Class I, BMI 30-34.9 11/05/2023 Other chest pain 05/07/2020 S/P tricuspid valve repair 08/19/2016 Discharge planning issues 08/01/2016 Overview (08/02/2016): From [place]. Supportive family. No skilled needs. Request OPD & scheduled cards. Target discharge Tues. Dysplastic tricuspid valve 07/30/2016 Overview (08/02/2016): History: Ebstein's anomaly. Assessment: s/p TV repair. Plan: Check echo today. ASA Acute post-operative pain 07/30/2016 Overview (08/02/2016): History: Post-op pain. Assessment: Improved but still suboptimal. Plan: Scheduled tylenol & NSAID. Added ultram & continue oxycodone on as needed basis. OPD f/u SUMMARY 07/29/2016 Overview (08/02/2016): Indication for hospital admission: Ebstein's anamoly, TR LVEF: Normal RVF: Normal PMH/PSH: TR, anxiety, smoker Surgery: 07/29/2016 TVr with annuloplasty ring Airway Difficulty: Grade I - No special instrumentation OR Course: Uncomplicated Pacing wires: No Postoperative Course: Gustavo is a 26 year old male with a dysplastic tricuspid valve with severe TR who is hemodynamically stable on POD #1 s/p tricuspid with #34 annuloplasty ring and bicuspidation. No intra-operative or post-operative complications. He is hemodynamically stable on no inotropic support, pain management has been major issue on Dilaudid HUMAN FACTORS ENGINEER with basal rate 0.2mg/hr with demand of 0.2mg every 6 minutes. He attempt 100 times over night with 32 doses given. A/Plan: -s/p TV repair. Check echo today. ASA. -Post-op pain.Persistent. Scheduled tylenol & NSAID. Add ultram & continue oxycodone on as needed basis. -Smoker - continue Nicotine patch -Post-op FVO much improved, taper lasix. -Dispo: From [place]. Supportive family. No skilled needs. Request OPD & scheduled cards. Target discharge Tu. 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 Family History Medical History Relation Comments Hypertension Father Hypertension Mother Relation Status Comments Brother (Age 21) MVA Father Alive Mother Alive Social History Tobacco Use Types Packs/Day Years Used Date Smoking Tobacco: Former Cigarettes 0.3 11.9 1 07/09/2010 - 03/25/2023 Smokeless Tobacco: Never Tobacco Cessation:Counseling Given: Not Answered Alcohol Use Standard Drinks/Week Comments Yes 0 [...] (1-100), lower number is lower ri sk 59 09/09/2024 State Score (1-10), lower number is lower risk 4 09/09/2024 Data from: https://www.neighborhoodatlas.medicine.[facility].edu/. Last address used for calculation [address] 09/09/2024 Sex and Gender Information Value Date Recorded Sex Assigned at Not on file Legal Sex Male 7:18 AM EST Gender Identity Not on file Sexual Orientation Not on file Last Filed Vital Signs Vital Sign Reading Time Taken Comments Blood Pressure 143/95 09/09/2024 4:04 PM EDT Pulse 97 09/09/2024 4:04 PM EDT Temperature 36.6 C (97.8 F) 10/21/2016 2:23 PM EDT Respiratory Rate 12 08/18/2021 2:28 PM EST Oxygen Saturation 100% 09/09/2024 4:04 PM EDT Inhaled Oxygen Concentration - - Weight 106.3 kg (234 lb 6.4 oz) 09/09/2024 4:04 PM EDT Height 188 cm (6' 2 ) 10/20/2022 9:06 AM EDT Body Mass Index 30.1 10/20/2022 9:06 AM EDT Plan of Treatment Health Maintenance Due Date Last Done Comments Annual PCP Team Chronic Dise ase Visit 2008 Anxiety Screening 2008 Depression Screening 2008 HIV Screening 2008 Hepatitis C Screening 2008 DTaP,Tdap,Td Vaccine (1 - Tdap) 2009 Hepatitis B Vaccine (1 of 3 - 19+ 3-dose series) 2009 HPV Vaccine (1 - 3-dose SCDM series) 2017 Covid-19 Vaccine (1 - 2024-2 6 season) 2025 Influenza Vaccine (#1) 2025 Lipid Screening 09/09/2029 09/09/2024, 05/0 01/2024, 10/20/2022, Additional history exists Goals Goal Patient Goal Type Associated Problems Recent Progress Patient-Stated? Author Blood Pressure < 130/80 Blood Pressure 143/95( 025 4:04 PM EDT) Carmen Casas MD Medical Devices Implanted Type Area Teleprinter Installer Device Identifier Shelf Expiration Date Model / Serial / Lot Ring Lizett-Edw ards Classic 34mm 39.2mm 32.3mm Oval Titanium Silicone - [id number] Implanted:Qty: 1 on 07/29/2016 at [facility] Valve N/A: Heart [employer] 12/16/2017 [id number] / [id number] / Procedures Procedure Name Priority Date/Time Associated Diagnosis Comments LIPID PANEL, FASTING Routine 09/09/2024 1:05 PM EDT Dysplastic tricuspid valve from Last 3 Months or Most Recently Relevant to Health Maintenance Results * (ABNORMAL) LIPID PANEL BASIC (09/09/2024 1:05 PM EDT) Cholesterol, Total 142 <200 mg/dL 09/09/2024 2:32 PM [facility] Comment: <200 mg/dL, Desirable 200-239 mg/dL, Borderline high >239 mg/dL, High Triglyceride 59 <150 mg/dL 09/09/2024 2:32 PM [facility] Comment: <150 mg/dL, Normal 150-199 mg/dL, Borderline high 200-499 mg/dL, High >499 mg/dL, Very high HDL Cholesterol 33(L) >39 mg/dL 2:32 PM [facility] Comment: 40-59 mg/dL, Acceptable >59 mg/dL, High: Negative risk factor for coronary heart disease <40 mg/dL, Low: Positive risk factor for coronary heart disease Non HDL Cholesterol 109 <130 mg/dL 09/09/2024 2:32 PM [facility] Comment: <130 mg/dL, Optimal 130-159 mg/dL, Near optimal/above optimal 160-189 mg/dL, Borderline high 190-219 mg/dL, High >219 mg/dL, Very high Secondary prevention optimal non HDL Cholesterol levels are recommended to be <100 mg/dL Fasting Time 12 hrs 09/09/2024 2:32 PM [facility] VLDL Cholesterol 12 <30 mg/dL 09/10/19 2:32 PM [facility] TC:HDL Ratio 4.30 <5.10 09/09/2024 2:32 PM [facility] LDL Cholesterol, Calculated 97 <100 mg/dL 09/09/2024 2:32 PM [facility] Comment: <100 mg/dL, Optimal 100-129 mg/dL, Near optimal/above optimal 130-159 mg/dL, Borderline high 160-189 mg/dL, High >189 mg/dL, Very high Secondary prevention optimal LDL Cholesterol levels are recommended to be < 70 mg/dL LDL:HDL Ratio 2.94(H) <2.54 09/09/2024 2:32 PM [facility] Comment: Reference: 1. National Cholesterol Education Program ATP III Guideline At-A-Glance Quick Desk Reference: National Heart, Lung, and Blood [place]. National Institutes of Health. 2001: NIH Publication No. 01-3305. 2. An International Atherosclerosis Society position paper: global recommendations for the management of dyslipidemia: executive summary, Atherosclerosis. 2014: 232(2):410-413. Blood BLOOD SPECIMEN / Unknown Venipuncture / Unknown 09/09/2024 1:05 PM EDT 09/09/2024 1:05 PM EDT us Carmen Hdz MD LABORATORY Final Result [facility] [address] [place] [address], from Last 3 Months or Most Recently Relevant to Health Maintenance Insurance [facility] Care Teams Chip Drier Relationship Specialty Start Date End Date Carmen Hdz MD [address] [place] [address] Primary Staff Physician Cardiology 08/18/21
--- OUTSIDE RECORDS SUMMARY | 2025-04-10 10:03 | XMS_ITS | Encounter Summary ---
Author Organization [facility] Address [address] [place] [address] Care Team Providers Care Transportation Broker Name Role Phone House Sr., Carlos VALENZUELA Primary Care Provider + House Sr., Carlos VALENZUELA Primary Care Provider + Carmen Hdz MD Unavailable [phone] Source Comments In the event this information is protected by the Federal Confidentiality of Alcohol and Drug AbusePatient Records regulations: The Federal rules restrict any use of the information to criminally investigate or prosecute any alcohol or drug abuse patient.[facility] Encounter Details Date Type Department Care Team (Late st Contact Info) Description 11/04/2016 Patient Msg Cardiology [address] [place] [address] Zo Izquierdo APRN.FOAMITE MIXER [address] [place] [address] Follow-up to your last appt [...] Author No 08/02/2016 1:52 PM Celestino Thapa, LASER PRINT OPERATOR.FOAMITE MIXER * Are you blind or do you have serious difficulty seeing, even when wearing glasses? Answer Date of Assessment Author No 08/02/2016 1:52 PM Celestino Thapa, LASER PRINT OPERATOR.FOAMITE MIXER * Do you have serious difficulty walking or climbing stairs? Answer Date of Assessment Author No 08/02/2016 1:52 PM Celestino Thapa APRN.FOAMITE MIXER * Do you have difficulty dressing or bathing? Answer Date of Assessment Author No 08/02/2016 1:52 PM Celestino Thapa, LASER PRINT OPERATOR.FOAMITE MIXER * Because of a physical, mental, or emotional condition, do you have difficulty doing errands alone such as visiting a doctor's office or shopping? Answer Date of Assessment Author No 08/02/2016 1:52 PM Celestino Thapa APRN.FOAMITE MIXER documented as of this encounter Mental Status * Because of a physical, mental, or emotional condition, do you have serious difficulty concentrating, remembering, or making decisions? Answer Entry Date Author No 08/02/2016 1:52 PM Celestino Thapa, LASER PRINT OPERATOR.FOAMITE MIXER documented in this encounter Plan of Treatment Not on file documented as of this encounter Visit Diagnoses Not on filedocumented in this encounter Care Teams Transportation Broker Relationship Specialty Start Date End Date Carlos Sauceda Sr., PCP - General Family Medicine 04/07/16 06/26/18 Carlos Sauceda Sr., PCP - General Family Medicine 10/15/20 09/11/24 Carmen Hdz MD [address] [place] [address] Primary Staff Physician Cardiology 08/18/21 documented as of this encounter
--- OUTSIDE RECORDS SUMMARY | 2025-04-10 10:03 | XMS_ITS | CCD ---
Author Organization [facility] CliniSynd Care Team Providers Care Ocean Export Account Manager Name Role Phone Mirtha Garza Unavailable Adis Sr.Carlos Primary Care Provider Esme Calderon MD Unavailable [...] HOUSE, DR FLOWERS Primary Care Unavailable LARON LIUS Consulting Unavailable LARON LUIS Admitting Unavailable LARON LUIS Attending Unavailable BILL GONZALEZ Consulting Unavailable House Sr., Carlos VALENZUELA Primary Care Provider Esme Calderon MD Unavailable [phone] NO FAMILY, PHYSICIAN Primary Care Provider Unava ilable CHILO Ojeda Attending Provider [phone] NO FAMILY, PHYSICIAN Primary Care Provider Unava ilable Allen Cheung DO Emergency Provider [phone] Allen Cheung Admitting Unavailable Allen Cheung Attending [...] Unava ilable Allen Cheung DO Emergency Provider Lavon WALDROP Attending Unavailable Bijal Robertson Attending Unavailable VERITO Edge Attending Unavailable Allergies Allergy Classification Reported Allergen(s) Allergy Type Date of Onset Reaction(s) Facility (5 sources) Penicillin G Drug Allergy 12-29-19 24 Unknown, Unknown Reaction [facility] (18 sources) diphenhydrAMINE; Translations: [DIPHENHYDRAMINE] Drug Allergy 01-12-20 19 Rash, Itching [facility] (12 sources) Penicillins; Translations: [PENICILLINS] Propensity to adverse reactions 09-11-19 05 [facility] (1 source) Penicillins Drug allergy (disorder) 12-17-19 13 [facility] (1 source) Sulfonamides (Antibiotic) Drug allergy (disorder) [facility] (1 source) diphenhydrAMINE Drug Allergy 12-29-19 [facility] (1 source) Penicillin Drug Allergy 12-29-19 [facility] (1 source) diphenhydrAMINE Drug All[facility] Penicillins Propensity to adverse reactions 09-11-19 05 [facility] (3 sources) Penicillin; Translations: [penicillin] Drug Allergy [facility] (1 source) diphenhydrAMINE; Translations: [Benadryl] Drug Allergy [facility] Repository Medications Current Medications Medication Drug [...] as needed. 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: 04-15-2005 Resolved: 08-01-2016 08-02-2016 Chronic Essential hypertension (20 sources) Hypertensive disorder; Translations: [Essential (primary) hypertension] [...] Onset: 01-30-2025 Episodic Other male genital disorders (2 sources) Pain of left testicle 01-30-2025 Episodic Other nutritional; endocrine; and metabolic disorders (5 sources) Obese class I; Translations: [Obesity, unspecified] Onset: 11-05-2023 11-05-2023 Chronic Jeanie-; endo-; and myocarditis; cardiomyopathy (except that caused by tuberculosis or sexually transmitted disease) (4 sources) Cardiomyopathy; Translations: [Cardiomyopathy, unspecified] Chronic Substance-related [...] 04-12-2021 Episodic Other aftercare (1 source) 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 Date of Appointment: From: 04/03/2025 To: _ May Return to Work On: 04/04/2025 Restrictions: none Comments: Any questions, please call our office Sincerely, [facility] [address] [place] [address] [place] [address] [facility] Urology Office/Clinic Noteon 04-03-2025 Urology Office/Clinic Note Urology Office/Clinic Note Chief Complaint lower back pain HPI Staff Pt is a 34 year old male here for lower back pain Previous DX: left testicular pain no uro meds Pt states that he has been having lower back pain for 1 -2 months now. He states that the pain is mainly on the left but he does have some on the right at times. He states that the pain on both sides radiates to the front. Denies any visible blood at any time but states that he has noticed that his urine has been having a stronger odor to it. Denies any dysuria. His father does have a hx of kidney stones. History of Present Illness I have reviewed and verified the staff HPI to be accurate for this encounter. Portions of this record may have been created with voice recognition artificial intelligence software, specifically Bomberbot, FarmBot and or Socializr. Substitutions may have occurred due to the inherent limitations of voice recognition and artificial intelligence software. Review of Systems PHQ Score Initial Depression Screen Score: 0 SCORE Physical Exam Vitals & Measurements HR: 76(Peripheral) RR: 18 BP: 136/83 HT: 188 cm HT: 74 in WT: 107 kg WT: 235.894 lb BMI: 30.27 General: Well developed, well nourished, in no acute distress. Genitourinary: Flank Pain: none. No CVA tenderness Bladder: nonpalpable. Assessment/Plan PRW pt 1. Flank pain (R10.9: Unspecified abdominal pain) pt c/o intermittent flank pain over the last month left > right, random not exacerbated by activity, not made better w/ rest Not associated w/ fluid intake or urge to void denies gross hematuria or associated urinary sx no personal hx of stones UA today w/o blood or infection No CVA tenderness on exam today Given ongoing issue, will r/o kidney etiology w/ imaging Increase fluid intake, avoid bladder irritants ER for fever, NV, severe flank pain, inability to urinate -KUB[facility]DAVID at [facility], call w/ results -f/u pending imaging Ordered: US Renal XR Abdomen 1 View Orders: Urnls Dip Stick Auto w/o Microscopy POC [id number] Follow-up With When Contact Information Orzech PRINTING TABLE HAND, BATCH RECORDS CLERK-C, Bijal X, FAM, URL Additional Instructions: pending imaging Patient Education Flank Pain, Adult Problem List/Past Medical History Ongoing Flank pain Heart valve disorder Hypertension Left testicular pain Historical No qualifying data Procedure/Surgical History Appendectomy, Heart valve repair, Open heart surgery. Medications lisinopril 10 mg Tab, 10 mg= 1 tab(s) Allergies Benadryl penicillin Social History Tobacco vape Tobacco Use:. Current vaping or e-cigarette use Smokeless Tobacco Use:. Vaping, 01/30/2025 Family History Kidney stone: Father. Immunizations Vaccine Date Status influenza virus vaccine, [...] of Care Results Bilirubin Urine Dipstick: Negative (04/03/25 13:43:00) Blood Urine Dipstick: Negative (04/03/25 13:43:00) Glucose Urine Dipstick: Negative (04/03/25 13:43:00) Ketones Urine Dipstick: Negative (04/03/25 13:43:00) Leukocytes Urine Dipstick: Negative (04/03/25 13:43:00) Nitrite Urine Dipstick: Negative (04/03/25 13:43:00) Protein Urine Dipstick: Negative (04/03/25 13:43:00) Specific [place] Urine Dipstick: >=1.030 (04/03/25 13:43:00) Urine Appearance Urine Dipstick: Clear (04/03/25 13:43:00) Urine Color Urine Dipstick: Yellow (04/03/25 13:43:00) Urobilinogen Urine Dipstick: Normal 0.2-1 EU/dl (04/03/25 13:43:00) pH Urine Dipstick: 5.5 (04/03/25 13:43:00) Normal [facility] Comment on above: Result Comment: Elec tronically Signed By: RADHA Robertson APRN, Bijal Sykes\.br\Date and Time Signed: 04/03/25 14:19 EDT Ambulatory Visit Summaryon 0 01-30-2025 Ambulatory Visit [...] URL When: Where: [facility] [address] [place] [address]- Medications What How Much When Instructions Unchanged [...] not rub your skin to dry it. Lwyh-fgv-fathfl sitz bath To take a sitz bath with an afyx-mpx-zxisaz basin: 1. Follow the director of event marketing's instructions. 2. Fill the basin with warm [...] if it cracks, or according to the director of event marketing's instructions. Contact a health care provider if: [...] provider. Document Revised: 09/13/2022 Document Reviewed: 09/13/2022 [employer] Patient Education ??? 2023 [employer]. Testicular Self-Exam A self-examination of your (more content not included)... Normal [facility] Provider Letteron 01-30-2025 Provider Letter Provider Letter January 30, 2025 ALLIE FUNES [address] [place] [phone] : 1990 To Whom It May Concern, Please excuse above patient from work. Date of Illness: From: 01/30/25 To: 01/30/25 May Return to Work On: 01/31/25 Restrictions: None Comments: Patient had an appointment with [facility] 01/30/25. 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 SHIMS: 15 IPSS: pt [...] [facility] [address], [place] [id number]- Additional Instructions: sched scrotal US, PRN Patient Education How to Take a Sitz Bath Testicular Self-Exam Adelina Vital, personally scribed for Dr. Waldrop on 01/30/2025 16:14:55. . Documentation recorded by the Adelina mancuso, accurately reflects the services(s) I performed and [...] Protein Urine Dipstick: Negative (01/30/25 15:46:00) Specific [place] Urine Dipstick: >=1.030 (01/30/25 15:46:00) Urine Appearance Urine Dipstick: Clear (01/30/25 15:46:00) Urine Color Urine Dipstick: Light yellow (01/30/25 15:46:00) Urobilinogen Urine Dipstick: Normal 0.2-1 EU/dl (01/30/25 15:46:00) pH Urine Dipstick: 5.5 (01/30/25 15:46:00) Normal [facility] Comment on above: Result Comment: Elec tronically Signed By: Lavon WALDROP MD\.br\Date and Time Signed: 01/30/25 16:17 EDT\.br\Electronically Co-Signed By: Adelina Castanon\.br\Date and Time Co-Signed: 01/30/25 16:15 EDT CBC panel Auto (Bld)on 09-09 Erythrocyte distribution width (RBC) [Ratio] 11.7 % Normal 11.5-15.0 [facility] Comment on above: Order Comment: Speci men Type: BLOOD SPECIMEN Ordering Facility: [facility] Address: [address] [place] [address] Performed By: #### 5 8410-2 #### [facility] CLIA [id number] [address] [place] [address] [place] Hematocrit (Bld) [Volume fraction] 43.7 % Normal 39.0-51.0 [facility] Comment on above: Order Comment: Speci men Type: BLOOD SPECIMEN Ordering Facility: [facility] Address: [address] [place] [address] Performed By: #### 5 8410-2 #### [facility] CLIA [id number] [address] [place] [address] [place] Hemoglobin (Bld) [Mass/Vol] 14.9 g/dL Normal 13.0-17.0 [facility] Comment on above: Order Comment: Speci men Type: BLOOD SPECIMEN Ordering Facility: [facility] Address: [address] [place] [address] Performed By: #### 5 8410-2 #### [facility] CLIA [id number] [address] [place] [address] [place] MCH (RBC) [Entitic mass] 30.3 pg Normal 26.0-34.0 [facility] Comment on above: Order Comment: Speci men Type: BLOOD SPECIMEN Ordering Facility: [facility] Address: [address] [place] [address] Performed By: #### 5 8410-2 #### [facility] CLIA [id number] [address] [place] [address] [place] MCHC (RBC) [Mass/Vol] 34.1 g/dL Normal 30.5-36.0 [facility] Comment on above: Order Comment: Speci men Type: BLOOD SPECIMEN Ordering Facility: [facility] Address: [address] [place] [address] Performed By: #### 5 8410-2 #### [facility] CLIA [id number] [address] [place] [address] [place] MCV (RBC) [Entitic vol] 89.0 fL Normal 80.0-100.0 [facility] Comment on above: Order Comment: Speci men Type: BLOOD SPECIMEN Ordering Facility: [facility] Address: [address] [place] [address] Performed By: #### 5 8410-2 #### [facility] CLIA [id number] [address] [place] [address] [place] Nucleated RBC (Bld) [#/Vol] 10*3/uL Normal <0.01 [facility] Comment on above: Order Comment: Speci men Type: BLOOD SPECIMEN Ordering Facility: [facility] Address: [address] [place] [address] Performed By: #### 5 8410-2 #### [facility] CLIA [id number] [address] [place] [address] [place] Platelet mean volume (Bld) [Entitic vol] 10.2 fL Normal 9.0-12.7 [facility] Comment on above: Order Comment: Speci men Type: BLOOD SPECIMEN Ordering Facility: [facility] Address: [address] [place] [address] Performed By: #### 5 8410-2 #### [facility] CLIA [id number] [address] [place] [address] [place] Platelets (Bld) [#/Vol] 282 10*3/uL Normal 150-400 [facility] Comment on above: Order Comment: Speci men Type: BLOOD SPECIMEN Ordering Facility: [facility] Address: [address] [place] [address] Performed By: #### 5 8410-2 #### [facility] CLIA [id number] [address] [place] [address] [place] RBC (Bld) [#/Vol] 4.91 10*6/uL Normal 4.20-6.00 [facility] Comment on above: Order Comment: Speci men Type: BLOOD SPECIMEN Ordering Facility: [facility] Address: [address] [place] [address] Performed By: #### 5 8410-2 #### [facility] CLIA [id number] [address] [place] [address] [place] WBC (Bld) [#/Vol] 8.31 10*3/uL Normal 3.70-11.00 [facility] Comment on above: Order Comment: Speci men Type: BLOOD SPECIMEN Ordering Facility: [facility] Address: [address] [place] [address] Performed By: #### 5 8410-2 #### [facility] CLIA [id number] [address] [place] [address] [place] CNOVon 09-09-2024 CNOV Office Visit (CARCMN ) ----- ALLIE FUNES ([id number]) 1990 M Date Time Provider Department 09/09/24 3:45 PM ESME CALDERON During your visit today, we recorded the following information about you: Pulse Blood pressure Weight 97/minute 143/95 106.3 kg Esme Calderon MD 09/12/2024 5:08 PM Signed [facility] OUTPATIENT VISIT DATE September 09, 2024 OUTPATIENT VISIT TYPE ESTABLISHED PRIMARY CARE PHYSICIAN: Carlos Arceo Sr. [address] [place] [address] CHIEF COMPLAINT: Follow up CONGENITAL CARDIAC HISTORY: [...] Procedure Laterality Date HEART CATHETERIZATION 02/2016 at [facility] HEART SURGERY HX 07/29/2016 s/p sternotomy, TV [...] GASTROINTESTINAL: N (more content not included)... Normal [facility] metabolic 2000 panelon 09-09-2024 Albumin [Mass/Vol] 4.8 g/dL Normal 3.9-4.9 [facility] Comment on above: Order Comment: Speci men Type: BLOOD SPECIMEN Ordering Facility: [facility] Address: [address] [place] [address] Performed By: #### 2 4323-8, 26959-5 #### [facility] CLIA [id number] [address] [place] [address] [place] ALP [Catalytic activity/Vol] 86 U/L Normal 38-113 [facility] Comment on above: Order Comment: Speci men Type: BLOOD SPECIMEN Ordering Facility: [facility] Address: [address] [place] [address] Performed By: #### 2 4323-8, 03361-0 #### [facility] CLIA [id number] [address] [place] [address] [place] ALT [Catalytic activity/Vol] 15 U/L Normal 10-54 [facility] Comment on above: Order Comment: Speci men Type: BLOOD SPECIMEN Ordering Facility: [facility] Address: [address] [place] [address] Performed By: #### 2 4323-8, 45430-7 #### [facility] CLIA [id number] [address] [place] [address] [place] Anion gap [Moles/Vol] 10 mmol/L Normal 8-15 [facility] Comment on above: Order Comment: Speci men Type: BLOOD SPECIMEN Ordering Facility: [facility] Address: [address] [place] [address] Performed By: #### 2 4323-8, 00487-3 #### [facility] CLIA [id number] [address] [place] [address] [place] AST [Catalytic activity/Vol] 11 U/L Low 14-40 [facility] Comment on above: Order Comment: Speci men Type: BLOOD SPECIMEN Ordering Facility: [facility] Address: [address] [place] [address] Performed By: #### 2 4323-8, 57777-6 #### [facility] CLIA [id number] [address] [place] [address] [place] Bilirubin [Mass/Vol] 0.4 mg/dL Normal 0.2-1.3 [facility] Comment on above: Order Comment: Speci men Type: BLOOD SPECIMEN Ordering Facility: [facility] Address: [address] [place] [address] Performed By: #### 2 4323-8, 44027-6 #### [facility] CLIA [id number] [address] [place] [address] [place] Calcium [Mass/Vol] 9.6 mg/dL Normal 8.5-10.2 [facility] Comment on above: Order Comment: Speci men Type: BLOOD SPECIMEN Ordering Facility: [facility] Address: [address] [place] [address] Performed By: #### 2 4323-8, 69206-0 #### [facility] CLIA [id number] [address] [place] [address] [place] Chloride [Moles/Vol] 105 mmol/L Normal 98-107 [facility] Comment on above: Order Comment: Speci men Type: BLOOD SPECIMEN Ordering Facility: [facility] Address: [address] [place] [address] Performed By: #### 2 4323-8, 99372-5 #### [facility] CLIA [id number] [address] [place] [address] [place] CO2 [Moles/Vol] 25 mmol/L Normal 22-30 [facility] Comment on above: Order Comment: Speci men Type: BLOOD SPECIMEN Ordering Facility: [facility] Address: [address] [place] [address] Performed By: #### 2 4323-8, 58202-6 #### [facility] CLIA [id number] [address] [place] [id number] [place] Creatinine [Mass/Vol] 0.95 mg/dL Normal 0.73-1.22 [facility] Comment on above: Order Comment: Ana ayoub Type: BLOOD SPECIMEN Ordering Facility: [facility] Address: [address] [place] [address] Performed By: #### 2 4323-8, 26376-6 #### [facility] CLIA [id number] [address] [place] [address] [place] Creatinine and Glomerular filtration rate.predicted panel (S/P/Bld) 108 mL/min/1.73m??? Normal >=60 [facility] Comment on above: Order Comment: Ana ayoub Type: BLOOD SPECIMEN Ordering Facility: [facility] Address: [address] [place] [address] Result Comment: Sonja mated Glomerular Filtration Rate [...] actual GFR. Performed By: #### 2 4323-8, 05452-4 #### [facility] CLIA [id number] [address] [place] [address] [place] Glucose [Mass/Vol] 93 mg/dL Normal 74-99 [facility] Comment on above: Order Comment: Ana ayoub Type: BLOOD SPECIMEN Ordering Facility: [facility] Address: [address] [place] [address] Result Comment: The [place] Diabetes Association (ADA) provides guidance for cutoff [...] Standards of Medical Care in Diabetes 2016, [place] [employer]. Diabetes Care. 2016.39(Suppl 1). Performed By: #### 2 4323-8, 34263-3 #### [facility] CLIA [id number] [address] [place] [address] [place] Potassium [Moles/Vol] 4.0 mmol/L Normal 3.7-5.1 [facility] Comment on above: Order Comment: Ana ayoub Type: BLOOD SPECIMEN Ordering Facility: [facility] Address: [address] [place] [address] Performed By: #### 2 4323-8, 96675-2 #### [facility] CLIA [id number] [address] [place] [address] [place] Protein [Mass/Vol] 7.4 g/dL Normal 6.3-8.0 [facility] Comment on above: Order Comment: Ana ayoub Type: BLOOD SPECIMEN Ordering Facility: [facility] Address: [address] [place] [address] Performed By: #### 2 4323-8, 99449-6 #### [facility] CLIA [id number] [address] [place] [address] [place] Sodium [Moles/Vol] 140 mmol/L Normal 136-144 [facility] Comment on above: Order Comment: Melissai men Type: BLOOD SPECIMEN Ordering Facility: [facility] Address: [address] [place] [address] Performed By: #### 2 4323-8, 90129-6 #### [facility] CLIA [id number] [address] [place], [place] [id number] [place] Urea nitrogen [Mass/Vol] 11 mg/dL Normal 9-24 [facility] Comment on above: Order Comment: Speci men Type: BLOOD SPECIMEN Ordering Facility: [facility] Address: [address] [place] [address] Performed By: #### 2 4323-8, 74795-7 #### [facility] CLIA [id number] [address] [place] [address] [place] [address] [place] ECG COMPLETEon 09-09-2024 ECG COMPLETE Ventricular Rate : 7 0 BPM Atrial Rate : 70 BPM P-R Interval : 132 ms QRS Duration : 168 ms Q-T Interval : 426 ms QTC Calculation(Bazett) : 460 ms Calculated P [place] : 36 degrees Calculated R [place] : 69 degrees Calculated T [place] : 23 degrees NORMAL SINUS RHYTHM COMPLETE RIGHT BUNDLE BRANCH BLOCK ABNORMAL ECG Confirmed by GEOVANNA MARTINES MD ([id number]) on 10/08/2024 8:14:00 PM NAME : ALLIE FUNES PID : [id number] : 1990 Gender : Male Race : ORD : [id number] Procedure Date : Sep 09 2024 14:07:29 Edit Date : Oct 08 2024 20:14:03 Diagnosis: NORMAL SINUS RHYTHM COMPLETE RIGHT BUNDLE BRANCH BLOCK ABNORMAL ECG Confirmed by GEOVANNA MARTINES MD ([id number]) on 10/08/2024 8:14:00 PM Test Reason : Location : 314 : J14 Overread By : GEOVANNA MARTINES MD Edited By : GEOVANNA MARTINES MD Referred By : ESME CALDERON Acquired by : MIKE SHIN [facility] ECHO SPECIALIST COMPLEX ADUL T CONGENITALon 09-09-2024 ECHO SPECIALIST COMPLEX ADULT CONGENITAL Echocardiography Report: [facility] MARIAH-2 Date of service: 09/09/2024 1:34:55 PM 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 Similar findings. Final [employer] [facility] Image : [id number] See Link below for Image Normal [facility] Lipid 1996 panelon 5 Cholesterol [Mass/Vol] 142 mg/dL Normal <200 [place] Comment on above: Order Comment: Speci men Type: BLOOD SPECIMEN Ordering Facility: [facility] Address: [address] [place] [address] Result Comment: <200 mg/dL, Desirable 200-239 mg/dL, Borderline high >239 mg/dL, High Performed By: #### 2 4323-8, 25510-4 #### [facility] CLIA [id number] [address] [place] [address] [place] Cholesterol in HDL [Mass/Vol] 33 mg/dL Low >39 [facility] Comment on above: Order Comment: Ana ayoub Type: BLOOD SPECIMEN Ordering Facility: [facility] Address: [address] [place] [address] Result Comment: 40-5 9 mg/dL, Acceptable >59 mg/dL, High: Negative risk factor for coronary heart disease <40 mg/dL, Low: Positive risk factor for coronary heart disease Performed By: #### 2 4323-8, 17636-0 #### [facility] CLIA [id number] [address] [place] [address] [place] Cholesterol in LDL [Mass/Vol] 97 mg/dL Normal <100 [facility] Comment on above: Order Comment: Speci men Type: BLOOD SPECIMEN Ordering Facility: [facility] Address: [address] [place] [address] Result Comment: <100 mg/dL, Optimal 100-129 mg/dL, Near optimal/above optimal 130-159 mg/dL, Borderline high 160-189 mg/dL, High >189 mg/dL, Very high Secondary prevention optimal LDL Cholesterol levels are recommended to be < 70 mg/dL Performed By: #### 2 4323-8, 83587-6 #### [facility] CLIA [id number] [address] [id number] [place] Cholesterol in LDL/Cholesterol in HDL [Mass ratio] 2.94 {ratio} High <2.54 [facility] Comment on above: Order Comment: Ana ayoub Type: BLOOD SPECIMEN Ordering Facility: [facility] Address: [address] [place] [address] Result Comment: Aubree dallas: 1. National Cholesterol Education Program ATP III Guideline At-A-Glance Quick Desk Reference: National Heart, Lung, and Blood [place]. National Institutes of Health. 2001: NIH Publication No. 01-3305. 2. An International Atherosclerosis Society position paper: global recommendations for the management of dyslipidemia: executive summary, Atherosclerosis. 2014: 232(2):410-413. Performed By: #### 2 4323-8, 55759-9 #### [facility] CLIA [id number] [address] [place] [address] [place] Cholesterol in VLDL [Mass/Vol] 12 mg/dL Normal <30 [facility] Comment on above: Order Comment: Ana ayoub Type: BLOOD SPECIMEN Ordering Facility: [facility] Address: [address] [place] [address] Performed By: #### 2 4323-8, 40198-6 #### [facility] CLIA [id number] [address] [place] [address] [place] Cholesterol non HDL [Mass/Vol] 109 mg/dL Normal <130 [facility] Comment on above: Order Comment: Ana ayoub Type: BLOOD SPECIMEN Ordering Facility: [facility] Address: [address] [place] [address] Result Comment: <130 mg/dL, Optimal 130-159 mg/dL, Near optimal/above optimal 160-189 mg/dL, Borderline high 190-219 mg/dL, High >219 mg/dL, Very high Secondary prevention optimal non HDL Cholesterol levels are recommended to be <100 mg/dL Performed By: #### 2 4323-8, 07040-6 #### [facility] CLIA [id number] [address] [place] [address] [place] Cholesterol.total/Chol esterol in HDL [Mass ratio] 4.30 {ratio} Normal <5.10 [facility] Comment on above: Order Comment: Speci men Type: BLOOD SPECIMEN Ordering Facility: [facility] Address: [address] [place] [address] Performed By: #### 2 4323-8, 94897-5 #### [facility] CLIA [id number] [address] [place] [address] [place] FASTING TIME 12 hrs Normal [facility] Comment on above: Order Comment: Speci men Type: BLOOD SPECIMEN Ordering Facility: [facility] Address: [address] [place] [address] Performed By: #### 2 4323-8, 60946-3 #### [facility] CLIA [id number] [address] [place] [address] [place] Triglyceride [Mass/Vol] 59 mg/dL Normal <150 [facility] Comment on above: Order Comment: Speci men Type: BLOOD SPECIMEN Ordering Facility: [facility] Address: [address] [place] [address] Result Comment: <150 mg/dL, Normal 150-199 mg/dL, Borderline high 200-499 mg/dL, High >499 mg/dL, Very high Performed By: #### 2 4323-8, 77001-2 #### [facility] CLIA [id number] [address] [place] [address] [place] Alanine aminotransferase [En zymatic activity/volume] in Serum or PlasmaOrdered By: Allen Cheung on 08-01-2024 ALT [Catalytic activity/Vol] Alanine aminotransferase [Enzymatic activity/volume] in Serum or Plasma [facility] Albumin [Mass/volume] in Ser um or Plasma by Bromocresol green (BCG) dye binding methoOrdered By: Allen Cheung on 08-01-2024 Albumin BCG dye [Mass/Vol] Albumin [Mass/volume] in Serum or Plasma by Bromocresol green (BCG) dye binding metho 3.5-5.7 [facility] Alkaline phosphatase [Enzyma tic activity/volume] in Serum or PlasmaOrdered By: Allen Cheung on 08-01-2024 ALP [Catalytic activity/Vol] Alkaline phosphatase [Enzymatic activity/volume] in Serum or Plasma 34-104 [facility] Aspartate aminotransferase [ Enzymatic activity/volume] in Serum or PlasmaOrdered By: Allen Cheung on 08-01-2024 AST [Catalytic activity/Vol] Aspartate aminotransferase [Enzymatic activity/volume] in Serum or Plasma 13-39 [facility] B-Type Natriuretic Peptideon 08-01-2024 Natriuretic peptide B (Bld) [Mass/Vol] 23.0 pg/mL Normal 5-100 [facility] Comment on above: Result Comment: PERF ORMED BY: [place] [address] PATHOLOGIST CLOTH DOUBLING MACHINE OPERATOR FAREED DAVALOS M.D. Performed By: #### C K, HS TROP, PTT, BNP, PT, BMP, HEPATIC, CBC #### [address] Basic Metabolic Panelon 02 Anion gap [Moles/Vol] 14.3 mmol/L Normal 6.0-15.0 [facility] Comment on above: Performed By: #### C K, HS TROP, PTT, BNP, PT, BMP, HEPATIC, CBC #### [address] Calcium [Mass/Vol] 9.9 mg/dL Normal 8.6-10.3 [facility] Comment on above: Result Comment: PERF ORMED BY: [place] [address] PATHOLOGIST CLOTH DOUBLING MACHINE OPERATOR FAREED DAVALOS M.D. Performed By: #### C K, HS TROP, PTT, BNP, PT, BMP, HEPATIC, CBC #### [address] Chloride [Moles/Vol] 104 mmol/L Normal 98-107 [facility] Comment on above: Performed By: #### C K, HS TROP, PTT, BNP, PT, BMP, HEPATIC, CBC #### [address] CO2 [Moles/Vol] 22.0 mmol/L Normal 21.0-31.0 [facility] Comment on above: Performed By: #### C K, HS TROP, PTT, BNP, PT, BMP, HEPATIC, CBC #### [address] Creatinine [Mass/Vol] 1.01 mg/dL Normal 0.70-1.30 [facility] Comment on above: Performed By: #### C K, HS TROP, PTT, BNP, PT, BMP, HEPATIC, CBC #### [address] GFR/1.73 sq M.predicted MDRD (S/P/Bld) [Vol rate/Area] mL/min/{1.73_m2} Normal [facility] Comment on above: Performed By: #### C K, HS TROP, PTT, BNP, PT, BMP, HEPATIC, CBC #### [address] Glucose [Mass/Vol] 99 mg/dL Normal 70-100 [facility] Comment on above: Result Comment: [facility] Glucose Reference Range is dependent on time and content of last meal. Glucose of more than 200 mg/dL in a nonstressed, ambulatory subject supports the diagnosis of Diabetes Mellitus. ADA recommended reference range Performed By: #### C K, HS TROP, PTT, BNP, PT, BMP, HEPATIC, CBC #### [address] Potassium [Moles/Vol] 3.3 mmol/L Low 3.5-5.1 [facility] Comment on above: Performed By: #### C K, HS TROP, PTT, BNP, PT, BMP, HEPATIC, CBC #### [address] Sodium [Moles/Vol] 137 mmol/L Normal 136-145 [facility] Comment on above: Performed By: #### C K, HS TROP, PTT, BNP, PT, BMP, HEPATIC, CBC #### [address] [place] [address] [place] Urea nitrogen [Mass/Vol] 15 mg/dL Normal 7-25 [facility] Comment on above: Performed By: #### C K, HS TROP, PTT, BNP, PT, BMP, HEPATIC, CBC #### [facility] [address] Basophils Auto (Bld) [#/Vol] Ordered By: Allen Cheung on 08-01-2024 Basophils (Bld) [#/Vol] Automated basophil count 0.0-0.2 [facility] Basophils/100 WBC Auto (Bld) Ordered By: Allen Cheung on 08-01-2024 Basophils/100 WBC (Bld) Automated basophil % . [facility] Bilirubin.direct [Mass/volum e] in Serum or PlasmaOrdered By: Allen Cheung on 08-01-2024 Bilirubin.direct [Mass/Vol] Bilirubin.direct [Mass/volume] in Serum or Plasma High 0.03-0.18 [facility] Bilirubin.total [Mass/volume ] in Serum or PlasmaOrdered By: Allen Cheung on 08-01-2024 Bilirubin [Mass/Vol] Bilirubin.total [Mass/volume] in Serum or Plasma High 0.3-1.0 [facility] Comment on above: Samples from patient s who have taken Naproxen have shown spurious elevation in Total Bilirubin levels. A metabolite of Naproxen, O-desmethylnaproxen, has been shown to interfere with the Jendrkarmaik-Grof method for measuring Total Bilirubin. BioFire Not Detectedon 08-01 BioFire Not Detected Not detected Normal Not Detecte [facility] Comment on above: Result Comment: This is a duplicate RP2.1 COVID (PCR) result to be used for statistical tracking purpose only. PERFORMED BY: [place] [address] PATHOLOGIST CLOTH DOUBLING MACHINE OPERATOR FAREED DAVALOS M.D. Performed By: #### B IOFIRECOVNOTDE, RESP PANEL UPP. ####[facility] [address] [place] [address] [place] COVID-19 Detected/Not Detect edOrdered By: Allen Cheung on 08-01-2024 SARS-CoV-2 (COVID-19) RNA HERBERTH+non-probe Ql (Nph) Not detected Not Detecte [facility] Comment on above: This is a duplicate RP2.1 COVID (PCR) result to be used for statistical tracking purpose only. CT angio chest PE protocolon 08-01-2024 CT angio chest PE protocol [facility] Main [place] [address] [place] [address] CT Scan Report Signed Patient: Allie Funes MR#: [id number] : 1990 Acct:[id number] Age/Sex: 34 / M ADM Date: 08/01/24 Loc: ER Room: Type: [facility] ER Attending Dr: Copies to: Allen Cheung [...] Zachary Castle M.D.08/01/2024 6:05 PM Dictation Location: [place] [address] Transcribed By: [facility] 08/01/241804 Dictated By: Zachary Castle DO 02/06/25 1802 Signed By: 08/01/24 1805 Normal [facility] Calcium [Mass/volume] in Ser um or PlasmaOrdered By: Allen Cheung on 08-01-2024 Calcium [Mass/Vol] Calcium [Mass/volume ] in Serum or Plasma 8.6-10.3 [facility] Carbon dioxide, total [Moles /volume] in Serum or PlasmaOrdered By: Allen Cheung on 08-01-2024 CO2 [Moles/Vol] Carbon dioxide, tota l [Moles/volume] in Serum or Plasma 21.0-31.0 [facility] Chloride [Moles/volume] in S katharine or PlasmaOrdered By: Allen Cheung on 08-01-2024 Chloride [Moles/Vol] Chloride [Moles/vol ume] in Serum or Plasma 98-107 [facility] Complete Blood Count Auto Di ffon 08-01-2024 Basophils (Bld) [#/Vol] 0.1 10*3/uL Normal 0.0-0.2 [facility] Comment on above: Result Comment: PERF ORMED BY: [place] [address] PATHOLOGIST CLOTH DOUBLING MACHINE OPERATOR FAREED DAVALOS M.D. Performed By: #### C K, HS TROP, PTT, BNP, PT, BMP, HEPATIC, CBC #### [facility] [address] [place] [address] Basophils/100 WBC (Bld) 1.4 % Normal . [facility] Comment on above: Performed By: #### C K, HS TROP, PTT, BNP, PT, BMP, HEPATIC, CBC #### [facility] [address] [place] [address] [place] Eosinophils (Bld) [#/Vol] 0.3 10*3/uL Normal 0.0-0.45 [facility] Comment on above: Performed By: #### C K, HS TROP, PTT, BNP, PT, BMP, HEPATIC, CBC #### [facility] [address] [place] [address] [place] Eosinophils/100 WBC (Bld) 3.0 % Normal . [facility] Comment on above: Performed By: #### C K, HS TROP, PTT, BNP, PT, BMP, HEPATIC, CBC #### [address] Erythrocyte distribution width (RBC) [Ratio] 12.8 % Normal 12.0-14.8 [facility] Comment on above: Performed By: #### C K, HS TROP, PTT, BNP, PT, BMP, HEPATIC, CBC #### [address] Hematocrit (Bld) [Volume fraction] 43.5 % Normal 38.8-50.0 [facility] Comment on above: Performed By: #### C K, HS TROP, PTT, BNP, PT, BMP, HEPATIC, CBC #### [address] Hemoglobin (Bld) [Mass/Vol] 15.1 g/dL Normal 13.0-17.0 [facility] Comment on above: Performed By: #### C K, HS TROP, PTT, BNP, PT, BMP, HEPATIC, CBC #### [address] Lymphocytes (Bld) [#/Vol] 3.8 10*3/uL Normal 1.00-4.8 [facility] Comment on above: Performed By: #### C K, HS TROP, PTT, BNP, PT, BMP, HEPATIC, CBC #### [address] Lymphocytes/100 WBC (Bld) 37.5 % Normal . [facility] Comment on above: Performed By: #### C K, HS TROP, PTT, BNP, PT, BMP, HEPATIC, CBC #### [address] MCH (RBC) [Entitic mass] 30.6 pg Normal 27.5-35.2 [facility] Comment on above: Performed By: #### C K, HS TROP, PTT, BNP, PT, BMP, HEPATIC, CBC #### [address] MCV (RBC) [Entitic vol] 88.2 fL Normal 83.5-101 [facility] Comment on above: Performed By: #### C K, HS TROP, PTT, BNP, PT, BMP, HEPATIC, CBC #### [address] Mean Corpuscular HGB Conc 34.7 g/dL Normal 32.5-35.6 [facility] Comment on above: Performed By: #### C K, HS TROP, PTT, BNP, PT, BMP, HEPATIC, CBC #### [address] Monocytes (Bld) [#/Vol] 0.6 10*3/uL Normal 0.0-0.8 [facility] Comment on above: Performed By: #### C K, HS TROP, PTT, BNP, PT, BMP, HEPATIC, CBC #### [address] Monocytes/100 WBC (Bld) 18.75 % Normal 0.00-20.00 [facility] Comment on above: Performed By: #### C K, HS TROP, PTT, BNP, PT, BMP, HEPATIC, CBC #### [address] Monocytes/100 WBC (Bld) 5.7 % Normal . [facility] Comment on above: Performed By: #### C K, HS TROP, PTT, BNP, PT, BMP, HEPATIC, CBC #### [address] Neutrophils (Bld) [#/Vol] 5.3 10*3/uL Normal 1.8-7.7 [facility] Comment on above: Performed By: #### C K, HS TROP, PTT, BNP, PT, BMP, HEPATIC, CBC #### [address] Neutrophils/100 WBC (Bld) 52.4 % Normal . [facility] Comment on above: Performed By: #### C K, HS TROP, PTT, BNP, PT, BMP, HEPATIC, CBC #### [facility] [address] NRBC% 0.1 /100{WBC} Normal 0-0.5 [facility] Comment on above: Performed By: #### C K, HS TROP, PTT, BNP, PT, BMP, HEPATIC, CBC #### [facility] [address] Platelet mean volume (Bld) [Entitic vol] 8.5 fL Normal 6.6-10.1 [facility] Comment on above: Performed By: #### C K, HS TROP, PTT, BNP, PT, BMP, HEPATIC, CBC #### [facility] [address] Platelets (Bld) [#/Vol] 343 10*3/uL Normal 150-450 [facility] Comment on above: Performed By: #### C K, HS TROP, PTT, BNP, PT, BMP, HEPATIC, CBC #### [facility] [address] RBC (Bld) [#/Vol] 4.93 10*6/uL Normal 3.90-5.60 [facility] Comment on above: Performed By: #### C K, HS TROP, PTT, BNP, PT, BMP, HEPATIC, CBC #### [facility] [address] WBC (Bld) [#/Vol] 10.2 10*3/uL Normal 4.1-10.5 [facility] Comment on above: Performed By: #### C K, HS TROP, PTT, BNP, PT, BMP, HEPATIC, CBC #### [facility] [address] Creatine Kinaseon 08-01-2024 CK [Catalytic activity/Vol] 66 U/L Normal 30-223 [facility] Comment on above: Performed By: #### C K, HS TROP, PTT, BNP, PT, BMP, HEPATIC, CBC ####[facility] Creatine kinase [Enzymatic a ctivity/volume] in Serum or PlasmaOrdered By: Allen Cheung on 08-01-2024 CK [Catalytic activity/Vol] Creatine kinase [Enzymatic activity/volume] in Serum or Plasma 30-223 [facility] Creatinine [Mass/volume] in Serum or PlasmaOrdered By: Allen Cheung on 08-01-2024 Creatinine [Mass/Vol] Creatinine [Mass/v olume] in Serum or Plasma 0.70-1.30 [facility] ECG 12 lead ECGon 08-01-2024 ECG 12 lead ECG [facility] [place] [address] Electrocardiograph Report Signed Patient: Allie Funes MR#: [id number] : 1990 Acct:[id number] Age/Sex: 34 / M ADM Date: 08/01/24 Loc: ER Room: Type: [facility] ER Attending Dr: Ordering Provider: Allen Cheung [...] : 583 ms Sinus tachycardia with short WA Right bundle branch block Possible Inferior infarct , age undetermined Abnormal ECG When compared with ECG of 19-Feb-2016 09:44, WA interval has decreased Vent. rate has increased by 52 bpm QRS duration has increased Borderline criteria for Inferior infarct are now present T wave amplitude has increased in Lateral leads Confirmed by Allen Cheung DO ([id number]) on 08/01/2024 7:18:48 PM Referred By: Electronically Signed By: Allen Cheung DO Transcribed By: MUS Signed By Allen Cheung DO 5 1917 Normal [facility] Eosinophils Auto (Bld) [#/Vo l]Ordered By: Allen Cheung on 08-01-2024 Eosinophils (Bld) [#/Vol] Automated eosinophil count 0.0-0.45 [facility] Eosinophils/100 WBC Auto (Bl d)Ordered By: Allen Cheung on 08-01-2024 Eosinophils/100 WBC (Bld) Automated eosinophil % . [facility] Erythrocyte distribution wid th Auto (RBC) [Ratio]Ordered By: Allen Cheung on 08-01-2024 Erythrocyte distribution width (RBC) [Ratio] Erythrocyte distribution width [Ratio] by Automated count 12.0-14.8 [facility] Globulin Calc (S) [Mass/Vol] Ordered By: Allen Cheung on 08-01-2024 Globulin (S) [Mass/Vol] Serum globulin measurement by calculation (mass/volume) [facility] Glucose [Mass/volume] in Ser um or PlasmaOrdered By: Allen Cheung on 08-01-2024 Glucose [Mass/Vol] Glucose [Mass/volume ] in Serum or Plasma 70-100 [facility] Comment on above: ADA recommended refe rence rangeRandom Glucose Reference Range is dependent on time and content of last meal. Glucose of more than 200 mg/dL in a nonstressed, ambulatory subject supports the diagnosis of Diabetes Mellitus. Hematocrit Auto (Bld) [Volum e fraction]Ordered By: Allen Cheung on 08-01-2024 Hematocrit (Bld) [Volume fraction] Hematocrit [Volume Fraction] of Blood by Automated count 38.8-50.0 [facility] Hemoglobin [Mass/volume] in BloodOrdered By: Allen Cheung on 08-01-2024 Hemoglobin (Bld) [Mass/Vol] Hemoglobin [Mass/volume] in Blood 13.0-17.0 [facility] Hepatic Panelon 08-01-2024 Albumin [Mass/Vol] 5.1 g/dL Normal 3.5-5.7 [facility] Comment on above: Performed By: #### C K, HS TROP, PTT, BNP, PT, BMP, HEPATIC, CBC #### [facility] [address] [place] [address] [place] Albumin/Globulin [Mass ratio] 1.6 {ratio} Normal [facility] Comment on above: Performed By: #### C K, HS TROP, PTT, BNP, PT, BMP, HEPATIC, CBC #### [facility] [address] [place] [id number] [place] ALP [Catalytic activity/Vol] 76 U/L Normal 34-104 [facility] Comment on above: Performed By: #### C K, HS TROP, PTT, BNP, PT, BMP, HEPATIC, CBC #### [address] ALT [Catalytic activity/Vol] 26 U/L Normal 7-52 [facility] Comment on above: Performed By: #### C K, HS TROP, PTT, BNP, PT, BMP, HEPATIC, CBC #### [address] AST [Catalytic activity/Vol] 17 U/L Normal 13-39 [facility] Comment on above: Performed By: #### C K, HS TROP, PTT, BNP, PT, BMP, HEPATIC, CBC #### [address] Bilirubin [Mass/Vol] 1.3 mg/dL High 0.3-1.0 [facility] Comment on above: Result Comment: Samp les from patients who have taken Naproxen have shown spurious elevation in Total Bilirubin levels. A metabolite of Naproxen, O-desmethylnaproxen, has been shown to interfere with the Jendrassik-Grof method for measuring Total Bilirubin. Performed By: #### C K, HS TROP, PTT, BNP, PT, BMP, HEPATIC, CBC #### [address] Bilirubin,Indirect 1.1 mg/dL Normal [facility] Comment on above: Performed By: #### C K, HS TROP, PTT, BNP, PT, BMP, HEPATIC, CBC #### [address] Bilirubin.indirect [Mass/Vol] 0.20 mg/dL High 0.03-0.18 [facility] Comment on above: Performed By: #### C K, HS TROP, PTT, BNP, PT, BMP, HEPATIC, CBC #### [address] Globulin (S) [Mass/Vol] 3.1 g/dL Normal [facility] Comment on above: Performed By: #### C K, HS TROP, PTT, BNP, PT, BMP, HEPATIC, CBC #### [facility] [address] [place] [id number] [place] Protein [Mass/Vol] 8.2 g/dL Normal 6.4-8.9 [facility] Comment on above: Performed By: #### C K, HS TROP, PTT, BNP, PT, BMP, HEPATIC, CBC #### [facility] [address] [place] [id number] [place] INR in Platelet poor plasma by Coagulation assayOrdered By: Allen Cheung on 08-01-2024 INR Coag (PPP) [Relative time] INR in Platelet poor plasma by Coagulation assay [facility] Comment on above: INR Therapeutic Rang e [...] erythrocytes in Blood by Automated coun 4.1-10.5 [facility] Lymphocytes Auto (Bld) [#/Vo l]Ordered By: Allen Cheung on 08-01-2024 Lymphocytes (Bld) [#/Vol] Lymphocytes [#/volume] in Blood by Automated count 1.00-4.8 [facility] Lymphocytes/100 WBC Auto (Bl d)Ordered By: Allen Cheung on 08-01-2024 Lymphocytes/100 WBC (Bld) Lymphocytes/100 leukocytes in Blood by Automated count . [facility] MCH Auto (RBC) [Entitic mass ]Ordered By: Allen Cheung on 08-01-2024 MCH (RBC) [Entitic mass] MCH [Entitic mass] by Automated count 27.5-35.2 [facility] MCHC Auto (RBC) [Mass/Vol]Or dered By: Allen Cheung on 08-01-2024 MCHC (RBC) [Mass/Vol] MCHC [Mass/volume] by Automated count 32.5-35.6 [facility] MCV Auto (RBC) [Entitic vol] Ordered By: Allen Cheung on 08-01-2024 MCV (RBC) [Entitic vol] MCV [Entitic volume] by Automated count 83.5-101 [facility] Monocyte distribution width [Entitic volume] in Blood by AutomatedOrdered By: Allen Cheung on 08-01-2024 Monocyte distribution width Auto (Bld) [Entitic vol] Monocyte distribution width [Entitic volume] in Blood by Automated 0.00-20.00 [facility] Monocytes Auto (Bld) [#/Vol] Ordered By: Allen Cheung on 08-01-2024 Monocytes (Bld) [#/Vol] Automated blood monocyte count 0.0-0.8 [facility] Monocytes/100 WBC Auto (Bld) Ordered By: Allen Cheung on 08-01-2024 Monocytes/100 WBC (Bld) Automated monocyte % . [facility] Natriuretic peptide B [Mass/ Vol]Ordered By: Allen Cheung on 08-01-2024 Natriuretic peptide B (Bld) [Mass/Vol] BNP ser/plas 5-100 [facility] Neutrophils Auto (Bld) [#/Vo l]Ordered By: Allen Cheung on 08-01-2024 Neutrophils (Bld) [#/Vol] Neutrophils [#/volume] in Blood by Automated count 1.8-7.7 [facility] Neutrophils/100 WBC Auto (Bl d)Ordered By: Allen Cheung on 08-01-2024 Neutrophils/100 WBC (Bld) Automated neutrophil % . [facility] No Panel InformationOrdered By: Allen Cheung on 08-01-2024 Estimated GFR (CKD-EPI) > 60.0 mL/Min [facility] Creatinine Clearance (Chem N/A [facility] Nucleated erythrocytes [Pres ence] in Blood by Automated countOrdered By: Allen Cheung on 08-01-2024 Nucleated RBC Auto Ql (Bld) Nucleated erythrocytes [Presence] in Blood by Automated count 0-0.5 [facility] Partial Thromboplastin Timeo n 08-01-2024 aPTT Coag (Bld) [Time] 32.1 s Normal 25.1-36.5 [facility] Comment on above: Result Comment: A he matocrit value greater than 55% may lead to inaccurate results in coagulation testing. Patients having hematocrit values >55% require a special collection tube for coagulation studies. Please contact the laboratory at [phone] for redraw instructions. PERFORMED BY: [place] [address] PATHOLOGIST CLOTH DOUBLING MACHINE OPERATOR FAREED DAVALOS M.D. Performed By: #### C K, HS TROP, PTT, BNP, PT, BMP, HEPATIC, CBC #### [address] Platelet mean volume Auto (B ld) [Entitic vol]Ordered By: Allen Cheung on 08-01-2024 Platelet mean volume (Bld) [Entitic vol] Platelet mean volume [Entitic volume] in Blood by Automated count 6.6-10.1 [facility] Platelets Auto (Bld) [#/Vol] Ordered By: Allen Cheung on 08-01-2024 Platelets (Bld) [#/Vol] Platelets [#/volume] in Blood by Automated count 150-450 [facility] Potassium [Moles/volume] in Serum or PlasmaOrdered By: Allen Cheung on 08-01-2024 Potassium [Moles/Vol] Potassium [Moles/v olume] in Serum or Plasma Low 3.5-5.1 [facility] Protein [Mass/volume] in Ser um or PlasmaOrdered By: Allen Cheung on 08-01-2024 Protein [Mass/Vol] Protein [Mass/volume ] in Serum or Plasma 6.4-8.9 [facility] Prothrombin Time INRon 08-01 INR Coag (PPP) [Relative time] 1.0 {INR} Normal [facility] Comment on above: Result Comment: [...] PTT, BNP, PT, BMP, HEPATIC, CBC #### [facility] [address] PT Coag (PPP) [Time] 11.8 s Normal 9.0-12.9 [facility] Comment on above: Result Comment: A he matocrit value greater than 55% may lead to inaccurate results in coagulation testing. Patients having hematocrit values >55% require a special collection tube for coagulation studies. Please contact the laboratory at [phone] for redraw instructions. Performed By: #### C K, HS TROP, PTT, BNP, PT, BMP, HEPATIC, CBC #### [facility] [address] Prothrombin time (PT)Ordered By: Allen Cheung on 08-01-2024 PT Coag (PPP) [Time] Prothrombin time (PT) 9.0- 12.9 [facility] Comment on above: A hematocrit value g reater than 55% may lead to inaccurate results in coagulation testing. Patients having hematocrit values >55% require a special collection tube for coagulation studies. Please contact the laboratory at [phone] for redraw instructions. RBC Auto (Bld) [#/Vol]Ordere d By: Allen Cheung on 08-01-2024 RBC (Bld) [#/Vol] Erythrocytes [#/volu me] in Blood by Automated count 3.90-5.60 [facility] Respiratory (Upper) Panel, P CRon 08-01-2024 Respiratory [...] A H3 Blank Space ---- PERFORMED BY: [facility] [address] [place] [address] PATHOLOGIST CLOTH DOUBLING MACHINE OPERATOR FAREED Restrepo [facility] Comment on above: Performed By: #### B IOFIRECOVNOTDE, RESP PANEL UPP. ####[facility] Respiratory pathogens DNA an d RNA panel - Nasopharynx by HERBERTH with non-probe detectionOrdered By: Allen Cheung on 08-01-2024 Respiratory pathogens DNA and RNA panel HERBERTH+non-probe (Nph) Respiratory pathogens DNA and RNA panel - Nasopharynx by HERBERTH with non-probe detection [facility] Respiratory pathogens DNA and RNA panel HERBERTH+non-probe (Nph) Respiratory pathogens DNA and RNA panel - Nasopharynx by HERBERTH with non-probe detection [facility] Serum or plasma albumin/glob ulin mass ratioOrdered By: Allen Cheung on 08-01-2024 Albumin/Globulin [Mass ratio] Serum or plasma albumin/globulin mass ratio [facility] Serum or plasma anion gap de terminationOrdered By: Allen Cheung on 08-01-2024 Anion gap [Moles/Vol] Serum or plasma an ion gap determination 6.0-15.0 [facility] Serum or plasma non-glucuron idated bilirubin measurement (mass/volume)Ordered By: Allen Cheung on 08-01-2024 Bilirubin.indirect [Mass/Vol] Serum or plasma non-glucuronidated bilirubin measurement (mass/volume) [facility] Sodium [Moles/volume] in Ser um or PlasmaOrdered By: Allen Cheung on 08-01-2024 Sodium [Moles/Vol] Sodium [Moles/volume ] in Serum or Plasma 136-145 [facility] Troponin I High Sensitivityo n 08-01-2024 Troponin I High Sensitivity 4 Normal 0-20 [facility] Comment on above: Result Comment: The Troponin units of report have been changed to meet the Chest Pain Accreditation requirement, element EC5.M1l2. Troponin units are changed from pg/ml to ng/L. Also, the decimal is removed and results are in whole numbers. PERFORMED BY: [place] [address] PATHOLOGIST CLOTH DOUBLING MACHINE OPERATOR FAREED DAVALOS M.D. Performed By: #### H S TROP ####[place] [id number] [facility] Troponin I High Sensitivity 4 Normal 0-20 [facility] Comment on above: Result Comment: The Troponin units of report have been changed to meet the Chest Pain Accreditation requirement, element EC5.M1l2. Troponin units are changed from pg/ml to ng/L. Also, the decimal is removed and results are in whole numbers. PERFORMED BY: [facility] [address] [place] [id number] PATHOLOGIST CLOTH DOUBLING MACHINE OPERATOR FAREED DAVALOS M.D. Performed By: #### C K, HS TROP, PTT, BNP, PT, BMP, HEPATIC, CBC ####[place] [id number] [facility] Troponin I.cardiac [Mass/vol ume] in Serum or Plasma by Detection limit <= 0.01 ng/Ordered By: Allen Cheung on 08-01-2024 Troponin I.cardiac DL <= 0.01 ng/mL [Mass/Vol] Troponin I.cardiac [Mass/volume] in Serum or Plasma by Detection limit <= 0.01 ng/ 0-20 [facility] Comment on above: The Troponin [...] nitrogen [Mass/volume] in Serum or Plasma 01-17 [facility] WBC Auto (Bld) [#/Vol]Ordere d By: Allen Cheung on 08-01-2024 WBC (Bld) [#/Vol] Leukocytes [#/volume ] in Blood by Automated count 4.1-10.5 [facility] X-ray reportOrdered By: Juan Manuel Castle on 08-01-2024 Study report [address] [address] XRay Report Signed Patient: Allie Funes MR#: [id number] : 1990 Acct:[id number] Age/Sex: 34 / M ADM Date: 5 Loc: ER Room: Type: [facility] ER Attending Dr: Copies to: Allen Cheung [...] Zachary Castle M.D.08/01/2024 5:19 PM Dictation Location: [facility]20 Transcribed By: [facility] 08/01/241718 Dictated By: Zachary Castle DO 08/01/241718 Signed By: 08/01/241718 [facility] XR chest 1V portableon 08-01 XR chest 1V portable [address] [place] [address] XRay Report Signed Patient: Allie Funes MR#: [id number] : 1990 Acct:[id number] Age/Sex: 34 / M ADM Date: 08/01/24 Loc: ER Room: Type: [facility] ER Attending Dr: Copies to: Allen Cheung [...] Zachary Castle M.D.08/01/2024 5:19 PM Dictation Location: [facility]- Transcribed By: [facility] 08/01/241718 Dictated By: Zachary Castle DO 08/01/241718 Signed By: 08/01/241718 Normal [facility] aPTT in Platelet poor plasma by Coagulation assayOrdered By: Allen Cheung on 08-01-2024 aPTT Coag (PPP) [Time] Activated partial thromboplastin time (aPTT) in platelet poor plasma by coagulation a 25.1-36.5 [facility] Comment on above: A hematocrit value g reater than 55% may lead to inaccurate results in coagulation testing. Patients having hematocrit values >55% require a special collection tube for coagulation studies. Please contact the laboratory at [phone] for redraw instructions. Toni 06-17-2024 SEAN Telephone (CARCMN) ----- ALLIE FUNES ([id number]) 1990 M Date Time Provider Department 06/17/24 ESME CALDERON During your visit today, we recorded the following information about you: Erica Maldonado 06/17/2024 4:02 PM Signed June 17, 2024 Patient Contact Number: [phone] Patient last seen within the last year: [...] Fully Assessed Reason for Visit: Patient Question [1017] Prescriptions as of 06/17/2024 - lisinopril (ZESTRIL) [...] Status:Closed by SHAKIRA ZAMAN on 06/17/24 Normal [facility] XR forearm RT 2V*on 12-29-19 24 XR forearm RT 2V* [place] [address] XRay Report Signed Patient: Allie Funes MR#: [id number] : 1990 Acct:[id number] Age/Sex: 33 / M ADM Date: 12/29/23 Loc: XDUCLY Room: Type: [facility] Attending Dr: Teresa Ojeda APRN Copies [...] Zachary Castle M.D.12/29/2023 1:41 PM Dictation Location: [place] [address] Transcribed By: [facility] 12/29/23 1341 Dictated By: Zachary Castle DO 12/29/23 1339 Signed By: 12/29/23 1341 Normal [facility] XR hand RT min 3V*on 024 XR hand RT min 3V* [facility] [address] [place] [address] XRay Report Signed Patient: Allie Funes MR#: [id number] : 1990 Acct:[id number] Age/Sex: 33 / M ADM Date: 12/29/23 Loc: [facility] Room: Type: [facility] Attending Dr: Teresa Ojeda APRN Copies [...] Zachary Castle M.D.12/29/2023 1:38 PM Dictation Location: [place] [address] Transcribed By: [facility] 12/29/23 1338 Dictated By: Zachary Castle DO 12/29/23 1335 Signed By: 12/29/23 1338 Normal [facility] ECHO SPECIALIST COMPLEX ADUL T CONGENITALon 11-05-2023 Echocardiography Report: [facility] [id number] Date of service: 11/01/2023 12:48:23 PM 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 [facility] CBC panel Auto (Bld)on 10-31 Erythrocyte distribution width (RBC) [Ratio] 11.8 % Normal 11.5-15.0 [facility] Comment on above: Order Comment: Speci men Type: BLOOD SPECIMEN Ordering Facility: [facility] Address: [address] [place], [place] [address] Performed By: #### 5 8410-2 #### [facility] CLIA [id number] [address] [place] [address] [place] Hematocrit (Bld) [Volume fraction] 41.7 % Normal 39.0-51.0 [facility] Comment on above: Order Comment: Speci men Type: BLOOD SPECIMEN Ordering Facility: [facility] Address: [address] [place] [address] Performed By: #### 5 8410-2 #### [facility] CLIA [id number] [address] [place] [address] [place] Hemoglobin (Bld) [Mass/Vol] 14.5 g/dL Normal 13.0-17.0 [facility] Comment on above: Order Comment: Speci men Type: BLOOD SPECIMEN Ordering Facility: [facility] Address: [address] [place] [address] Performed By: #### 5 8410-2 #### [facility] CLIA [id number] [address] [place] [address] [place] MCH (RBC) [Entitic mass] 30.3 pg Normal 26.0-34.0 [facility] Comment on above: Order Comment: Speci men Type: BLOOD SPECIMEN Ordering Facility: [facility] Address: [address] [place] [address] Performed By: #### 5 8410-2 #### [facility] CLIA [id number] [address] [place] [address] [place] MCHC (RBC) [Mass/Vol] 34.8 g/dL Normal 30.5-36.0 [facility] Comment on above: Order Comment: Speci men Type: BLOOD SPECIMEN Ordering Facility: [facility] Address: [address] [place] [address] Performed By: #### 5 8410-2 #### [facility] CLIA [id number] [address] [place] [address] [place] MCV (RBC) [Entitic vol] 87.2 fL Normal 80.0-100.0 [facility] Comment on above: Order Comment: Speci men Type: BLOOD SPECIMEN Ordering Facility: [facility] Address: [address] [place] [address] Performed By: #### 5 8410-2 #### [facility] CLIA [id number] [address] [place] [address] [place] Nucleated RBC (Bld) [#/Vol] 10*3/uL Normal <0.01 [facility] Comment on above: Order Comment: Speci men Type: BLOOD SPECIMEN Ordering Facility: [facility] Address: [address] [place] [address] Performed By: #### 5 8410-2 #### [facility] CLIA [id number] [address] [place] [address] [place] Platelet mean volume (Bld) [Entitic vol] 10.3 fL Normal 9.0-12.7 [facility] Comment on above: Order Comment: Speci men Type: BLOOD SPECIMEN Ordering Facility: [facility] Address: [address] [place] [address] Performed By: #### 5 8410-2 #### [facility] CLIA [id number] [address] [place] [address] [place] Platelets (Bld) [#/Vol] 295 10*3/uL Normal 150-400 [facility] Comment on above: Order Comment: Speci men Type: BLOOD SPECIMEN Ordering Facility: [facility] Address: [address] [place] [address] Performed By: #### 5 8410-2 #### [facility] CLIA [id number] [address] [place] [address] [place] RBC (Bld) [#/Vol] 4.78 10*6/uL Normal 4.20-6.00 [facility] Comment on above: Order Comment: Speci men Type: BLOOD SPECIMEN Ordering Facility: [facility] Address: [address] [place] [address] Performed By: #### 5 8410-2 #### [facility] CLIA [id number] [address] [place] [address] [place] WBC (Bld) [#/Vol] 7.94 10*3/uL Normal 3.70-11.00 [facility] Comment on above: Order Comment: Speci men Type: BLOOD SPECIMEN Ordering Facility: [facility] Address: [address] [place] [address] Performed By: #### 5 8410-2 #### [facility] CLIA [id number] [address] [place] [address] [place] CNOVon 11-01-2023 CNOV Office Visit (CARCMN ) ----- ALLIE FUNES ([id number]) 1990 M Date Time Provider Department 11/01/23 2:15 PM ESME CALDERONME During your visit today, we recorded the following information about you: Pulse Blood pressure Weight 92/minute 128/86 107.7 kg Esme Calderon MD 11/05/2023 4:22 PM [facility] [place] [facility] OUTPATIENT VISIT DATE November 01, 2023 OUTPATIENT VISIT TYPE ESTABLISHED PRIMARY CARE PHYSICIAN: Carlos Arceo Sr. [address] [place] [address] CHIEF COMPLAINT: Follow up CONGENITAL CARDIAC HISTORY: [...] Procedure Laterality Date HEART CATHETERIZATION 02/2016 at [facility] HEART SURGERY HX 07/29/2016 s/p sternotomy, TV [...] rhonchi. H (more content not included)... Normal [facility] Comprehensive metabolic 2000 panelon 11-01-2023 Albumin [Mass/Vol] 4.6 g/dL Normal 3.9-4.9 [facility] Comment on above: Order Comment: Ana ayoub Type: BLOOD SPECIMEN Ordering Facility: [facility] Address: [address] [place] [address] Performed By: #### L IPNF, 38651-1, 55289-5 #### [facility] CLIA [id number] [address] [place] [address] [place] [address] [place] ALP [Catalytic activity/Vol] 83 U/L Normal 38-113 [facility] Comment on above: Order Comment: Speci men Type: BLOOD SPECIMEN Ordering Facility: [facility] Address: [address] [place] [address] Performed By: #### L IPNF, 44767-1, 26664-4 #### [facility] CLIA [id number] [address] [place] [address] [place] ALT [Catalytic activity/Vol] 21 U/L Normal 10-54 [facility] Comment on above: Order Comment: Speci men Type: BLOOD SPECIMEN Ordering Facility: [facility] Address: [address] [place] [address] Performed By: #### L IPNF, 83555-2, 17522-0 #### [facility] CLIA [id number] [address] [place] [address] [place] Anion gap [Moles/Vol] 14 mmol/L Normal 9-18 [facility] Comment on above: Order Comment: Speci men Type: BLOOD SPECIMEN Ordering Facility: [facility] Address: [address] [place] [address] Performed By: #### L IPNF, 00233-5, 88724-5 #### [facility] CLIA [id number] [address] [place] [address] [place] AST [Catalytic activity/Vol] 15 U/L Normal 14-40 [facility] Comment on above: Order Comment: Speci men Type: BLOOD SPECIMEN Ordering Facility: [facility] Address: [address] [place] [address] Performed By: #### L IPNF, 25435-4, 03442-3 #### [facility] CLIA [id number] [address] [place] [address] [place] Bilirubin [Mass/Vol] 0.8 mg/dL Normal 0.2-1.3 [facility] Comment on above: Order Comment: Speci men Type: BLOOD SPECIMEN Ordering Facility: [facility] Address: [address] [place] [address] Performed By: #### L IPNF, 65920-0, 29258-4 #### [facility] CLIA [id number] [address] [place] [address] [place] Calcium [Mass/Vol] 9.9 mg/dL Normal 8.5-10.2 [facility] Comment on above: Order Comment: Speci men Type: BLOOD SPECIMEN Ordering Facility: [facility] Address: [address] [place] [address] Performed By: #### L IPNF, 33773-1, 25316-6 #### [facility] CLIA [id number] [address] [place] [address] [place] Chloride [Moles/Vol] 103 mmol/L Normal 97-105 [facility] Comment on above: Order Comment: Speci men Type: BLOOD SPECIMEN Ordering Facility: [facility] Address: [address] [place] [address] Performed By: #### L IPNF, 63983-1, 89161-6 #### [facility] CLIA [id number] [address] [place] [address] [place] CO2 [Moles/Vol] 21 mmol/L Low 22-30 [facility] Comment on above: Order Comment: Speci men Type: BLOOD SPECIMEN Ordering Facility: [facility] Address: [address] [place] [address] Performed By: #### L IPNF, 25534-7, 12948-9 #### [facility] CLIA [id number] [address] [place] [address] [place] Creatinine [Mass/Vol] 0.99 mg/dL Normal 0.73-1.22 [facility] Comment on above: Order Comment: Speci men Type: BLOOD SPECIMEN Ordering Facility: [facility] Address: [address] [place] [address] Performed By: #### L IPNF, 81456-5, 48110-2 #### [facility] CLIA [id number] [address] [place] [address] [place] Creatinine and Glomerular filtration rate.predicted panel (S/P/Bld) 103 mL/min/1.73m??? Normal >=60 [facility] Comment on above: Order Comment: Ana ayoub Type: BLOOD SPECIMEN Ordering Facility: [facility] Address: [address] [place] [address] Result Comment: Sonja mated Glomerular Filtration Rate [...] reflect actual GFR. Performed By: #### L MADYSON, 08193-4, 42244-8 #### [facility] CLIA [id number] [address] [place] [address] [place] Glucose [Mass/Vol] 96 mg/dL Normal 74-99 [facility] Comment on above: Order Comment: Ana ayoub Type: BLOOD SPECIMEN Ordering Facility: [facility] Address: [address] [place] [address] Result Comment: The [place] [employer] Association (ADA) provides guidance for cutoff [...] Standards of Medical Care in Diabetes 2016, [place] [employer]. Diabetes Care. 2016.39(Suppl 1). Performed By: #### L IPNF, 76706-0, 31760-8 #### [facility] CLIA [id number] [address] [place] [address] [place] Potassium [Moles/Vol] 4.1 mmol/L Normal 3.7-5.1 [facility] Comment on above: Order Comment: Speci men Type: BLOOD SPECIMEN Ordering Facility: [facility] Address: [address] [place] [address] Performed By: #### L IPNF, 27970-2, 84107-1 #### [facility] CLIA [id number] [address] [place] [address] [place] Protein [Mass/Vol] 7.5 g/dL Normal 6.3-8.0 [facility] Comment on above: Order Comment: Speci men Type: BLOOD SPECIMEN Ordering Facility: [facility] Address: [address] [place] [address] Performed By: #### L IPNF, 46600-0, 63331-2 #### [facility] CLIA [id number] [address] [place] [address] [place] Sodium [Moles/Vol] 138 mmol/L Normal 136-144 [facility] Comment on above: Order Comment: Speci men Type: BLOOD SPECIMEN Ordering Facility: [facility] Address: [address] [place] [address] Performed By: #### L IPNF, 47390-2, 14239-2 #### [facility] CLIA [id number] [address] [place] [address] [place] Urea nitrogen [Mass/Vol] 18 mg/dL Normal 9-24 [facility] Comment on above: Order Comment: Speci men Type: BLOOD SPECIMEN Ordering Facility: [facility] Address: [address] [place] [address] Performed By: #### L IPNF, 35073-6, 06176-8 #### [facility] CLIA [id number] [address] [place] [address] [place] ECG COMPLETEon 11-01-2023 ECG COMPLETE Ventricular Rate : 9 0 BPM Atrial Rate : 90 BPM P-R Interval : 146 ms QRS Duration : 160 ms Q-T Interval : 400 ms QTC Calculation(Bazett) : 489 ms Calculated P [place] : 36 degrees Calculated R [place] : 68 degrees Calculated T [place] : 17 degrees NORMAL SINUS RHYTHM COMPLETE RIGHT BUNDLE BRANCH BLOCK ABNORMAL ECG Confirmed by ASHLEY PAIZ MD ([id number]) on 11/03/2023 11:00:39 PM NAME : ALLIE FUNES PID : [id number] : 1990 Gender : Male Race : ORD : [id number] Procedure Date : Nov 01 2023 10:22:27 Edit Date : Nov 03 2023 23:00:45 Diagnosis: NORMAL SINUS RHYTHM COMPLETE RIGHT BUNDLE BRANCH BLOCK ABNORMAL ECG Confirmed by ASHLEY PAIZ MD ([id number]) on 11/03/2023 11:00:39 PM Test Reason : Location : [facility] : [place] [address] Overread By : ASHLEY PAIZ MD Edited By : ASHLEY PAIZ MD Referred By : ESME CALDERON Acquired by : GINA MUNROE [facility] ECHOACHDon 11-01-2023 ECHOACHD Echocardiography Rep ort: [address] Date of service: 11/01/2023 12:48:23 PM 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 Otherwise similar findings. Final CC [facility] [facility] Image : [id number] See Link below for Image Normal [facility] EXERCISE STRESS ECG METABOLI C (WITHOUT IMAGING)on 11-01-2023 EXERCISE STRESS ECG METABOLIC (WITHOUT IMAGING) Stress ECG Report: Exercise Stress ECG Metabolic (without Imaging) [facility] MARIAH-2 Date of service: 11/01/2023 9:06:58 AM INSURANCE INSPECTOR psychiatric specialist: Cathy Lopez Wafer Fab Technician: Tamika Dixon Interpreting physician: Maggie Cruz MD [...] Sinus Rhythm and Complete RBBB Exercise Protocol: [place] 10% Stress Exercise Table: +-----+ +------ --+ [...] (HRR): 6 bpm Rate Pressure Product (RPP): 52869 Metabolic Exercise Data Variable: Observed value [Expected [...] [employer]; 2020. - Rhonda U, Logan PG, Jack (more content not included)... Normal [facility] LIPID PANEL, NONFASTINGon Cholesterol [Mass/Vol] 184 mg/dL Normal <[address] [facility] Comment on above: Order Comment: Speci men Type: BLOOD SPECIMEN Ordering Facility: [facility] Address: [address] [place] [address] Result Comment: <200 mg/dL, Desirable 200-239 mg/dL, Borderline high >239 mg/dL, High Performed By: #### L IPNF, 36866-7, 00212-6 #### [facility] CLIA [id number] [address] [place] [address] [place] HDL CHOLESTEROL, NF 36 mg/dL Low >39 [facility] Comment on above: Order Comment: Ana ayoub Type: BLOOD SPECIMEN Ordering Facility: [facility] Address: [address] [place] [address] Result Comment: 40-5 9 mg/dL, Acceptable >59 mg/dL, High: Negative risk factor for coronary heart disease <40 mg/dL, Low: Positive risk factor for coronary heart disease Performed By: #### L IPNF, 97073-8, 32296-4 #### [facility] CLIA [id number] [address] [place] [address] [place] LDL CHOLESTEROL, NF 112 mg/dL High <100 [facility] Comment on above: Order Comment: Ana ayoub Type: BLOOD SPECIMEN Ordering Facility: [facility] Address: [address] [place] [address] Result Comment: <100 mg/dL, Optimal 100-129 mg/dL, Near optimal/above optimal 130-159 mg/dL, Borderline high 160-189 mg/dL, High >189 mg/dL, Very high Secondary prevention optimal LDL Cholesterol levels are recommended to be < 70 mg/dL Performed By: #### L IPNF, 91087-7, 57907-2 #### [facility] CLIA [id number] [address] [place] [address] [place] LDL/HDL RATIO, NF 3.11 mg/dL High <2.54 [facility] Comment on above: Order Comment: Ana ayoub Type: BLOOD SPECIMEN Ordering Facility: [facility] Address: [address] [place] [address] Result Comment: Refe rence: 1. National Cholesterol Education Program ATP III Guideline At-A-Glance Quick Desk Reference: National Heart, Lung, and Blood [place]. National Institutes of Health. 2001: NIH Publication No. 01-3305. 2. An International Atherosclerosis Society position paper: global recommendations for the management of dyslipidemia: executive summary, Atherosclerosis. 2014: 232(2):410-413. Performed By: #### L IPLUIS ENRIQUE, 84407-5, 01401-0 #### [facility] CLIA [id number] [address] [place], [place] [address] [place] [address] [place] NON HDL CHOL, NF 148 mg/dL High <130 [facility] Comment on above: Order Comment: Ana ayoub Type: BLOOD SPECIMEN Ordering Facility: [facility] Address: [address] [place] [address] Result Comment: <130 mg/dL, Optimal 130-159 mg/dL, Near optimal/above optimal 160-189 mg/dL, Borderline high 190-219 mg/dL, High >219 mg/dL, Very high Secondary prevention optimal non HDL Cholesterol levels are recommended to be <100 mg/dL Performed By: #### L IPNF, 80533-3, 78540-1 #### [facility] CLIA [id number] [address] [place] [address] [place] T CHOL/HDL RATIO NF 5.11 mg/dL High <5.10 [facility] Comment on above: Order Comment: Ana ayoub Type: BLOOD SPECIMEN Ordering Facility: [facility] Address: [address] [place] [address] Performed By: #### L IPNF, 73971-4, 39952-4 #### [facility] CLIA [id number] [address] [place] [address] [place] TRIGLYCERIDES, NF 181 mg/dL High <150 [facility] Comment on above: Order Comment: Ana ayoub Type: BLOOD SPECIMEN Ordering Facility: [facility] Address: [address] [place] [address] Result Comment: <150 mg/dL, Normal 150-199 mg/dL, Borderline high 200-499 mg/dL, High >499 mg/dL, Very high Performed By: #### L IPNF, 04496-4, 50048-3 #### [facility] CLIA [id number] [address] [place] [address] [place] VLDL CHOLESTEROL, NF 36 mg/dL High <30 [facility] Comment on above: Order Comment: Speci men Type: BLOOD SPECIMEN Ordering Facility: [facility] Address: [address] [place] [address] Performed By: #### L IPNF, 30130-0, 86735-1 #### [facility] CLIA [id number] [address] [place] [address] [place] NT-proBNP [facility] 10-31 Natriuretic peptide.B prohormone N-Terminal [Mass/Vol] 88 pg/mL Normal <125 [facility] Comment on above: Order Comment: Speci men Type: BLOOD SPECIMEN Ordering Facility: [facility] Address: [address] [place] [address] Performed By: #### L IPNF, 26758-8, 81297-6 #### [facility] CLIA [id number] [address] [place] [address] [place] No Panel Informationon 10-20 [facility] CBC AUTO DIFFon 06-27-2022 BASO # 0.1 103/ul Normal 0.0-0.1 [facility] Comment on above: Performed By: #### C BC #### [facility] [address] [place] [address] Dr. Temi Lux Basophils/100 WBC (Bld) 0.9 % Normal 0.2-2.0 [facility] Comment on above: Performed By: #### C BC #### [facility] [address] [place] [address] Dr. Temi Lux EO # 0.2 103/ul Normal 0.0-0.7 [facility] Comment on above: Performed By: #### C BC #### [facility] [address] [place] [address] Dr. Temi Lux Eosinophils/100 WBC (Bld) 2.1 % Normal 0.9-7.0 [facility] Comment on above: Performed By: #### C BC #### [facility] [address] [place] [address] Dr. Temi Lux Erythrocyte distribution width (RBC) [Ratio] 11.8 % Normal 11.0-15.0 [facility] Comment on above: Performed By: #### C BC #### [facility] [address] [place] [address] Dr. Temi Lux Hematocrit (Bld) [Volume fraction] 41.7 % Critically low 42.0-54.0 [facility] Comment on above: Performed By: #### C BC #### [facility] [address] [place] [address] Dr. Temi Lux Hemoglobin (Bld) [Mass/Vol] 14.7 g/dL Normal 14.0-18.0 [facility] Comment on above: Performed By: #### C BC #### [facility] [address] [place] [address] Dr. Temi Lux IG # 0.03 10e3/ul Normal 0.00-0.03 [facility] Comment on above: Performed By: #### C BC #### [facility] [address] [place] [address] Dr. Temi Lux IG % 0.3 % Normal 0.0-0.5 [facility] Comment on above: Performed By: #### C BC #### [facility] [address] [place] [address] Dr. Temi Lux LYMPH # 3.4 103/ul Normal 1.2-3.8 [facility] Comment on above: Performed By: #### C BC #### [facility] [address] [place] [address] Dr. Temi Lux Lymphocytes/100 WBC (Bld) 35.2 % Normal 20.5-60.0 [facility] Comment on above: Performed By: #### C BC #### [facility] [address] [place] [address] Dr. Temi Lux MANUAL DIFF REQ NO Normal [facility] Comment on above: Performed By: #### C BC #### [facility] [address] [place] [address] Dr. Temi Lux MCH (RBC) [Entitic mass] 31.3 pg Normal 25.9-34.0 [facility] Comment on above: Performed By: #### C BC #### [facility] [address] [place] [address] Dr. Temi Lux MCHC (RBC) [Mass/Vol] 35.3 g/dL Critically high 29.9-35.2 [facility] Comment on above: Performed By: #### C BC #### [facility] [address] [place] [address] Dr. Temi uLx MCV (RBC) [Entitic vol] 88.9 fL Normal 80.0-94.0 [facility] Comment on above: Performed By: #### C BC #### [facility] [address] [place] [address] Dr. Temi Lux MONO # 0.4 103/ul Normal 0.3-0.8 [facility] Comment on above: Performed By: #### C BC #### [facility] [address] [place] [address] Dr. Temi Lux Monocytes/100 WBC (Bld) 4.6 % Normal 1.7-12.0 [facility] Comment on above: Performed By: #### C BC #### [facility] [address] [place] [address] Dr. Temi Lux NEUT # 5.4 103/ul Normal 1.4-6.5 [facility] Comment on above: Performed By: #### C BC #### [facility] [address] [place] [address] Dr. Temi Lux Neutrophils/100 WBC (Bld) 56.9 % Normal 43.0-75.0 [facility] Comment on above: Performed By: #### C BC #### [facility] [address] [place] [address] [address] Temi Lux Platelet mean volume (Bld) [Entitic vol] 10.1 fL Normal 9.5-13.5 [facility] Comment on above: Performed By: #### C BC #### [facility] [address] [place] [address] Dr. Temi Lux PLT 291 103/ul Normal 150-450 [facility] Comment on above: Performed By: #### C BC #### [facility] [address] [address] [address] Temi Lux RBC 4.69 106/ul Critically low 4.70-6.10 [facility] Comment on above: Performed By: #### C BC #### [facility] [address] [place] [address] Dr. Temi Lux WBC 9.5 103/ul Normal 4.0-11.0 [facility] Comment on above: Performed By: #### C BC #### [facility] [address] [place] [address] Dr. Temi Lux PROF CHEM 8 (BAS METB)on Anion gap [Moles/Vol] 12.5 mmol/L Normal [facility] Comment on above: Performed By: #### B BRANNON HSTROPN #### [facility] [address] [place] [address] Dr. Temi Lux Calcium [Mass/Vol] 9.2 mg/dL Normal 8.5-10.1 [facility] Comment on above: Performed By: #### B BRANNON HSTROPN #### [facility] [address] [place] [address] Dr. Temi Lux Chloride [Moles/Vol] 102 mmol/L Normal 98-107 [facility] Comment on above: Performed By: #### B BRANNON HSTROPN #### [facility] [address] [place] [address] Dr. Temi Lux CO2 [Moles/Vol] 26.0 mmol/L Normal 21.0-32.0 [facility] Comment on above: Performed By: #### B BRANNON HSTROPN #### [facility] [address] [address] [address] Temi Lux Creatinine [Mass/Vol] 0.91 mg/dL Normal 0.70-1.30 [facility] Comment on above: Performed By: #### B MP, HSTROPN #### [facility] [address] [address] [address] Temi Lux EGFR-AF MEXICAN >60 Normal >=60 [facility] Comment on above: Performed By: #### B MP, HSTROPN #### [facility] [address] [address] [address] Temi Lux EGFR-NON AF MEXICAN >60 Normal >=60 [facility] Comment on above: Performed By: #### B MP, HSTROPN #### [facility] [address] [address] [address] Temi Lux Glucose [Mass/Vol] 100 mg/dL Normal 74-106 [facility] Comment on above: Performed By: #### B MP, HSTROPN #### [facility] [address] [address] [address] Temi Lux Potassium [Moles/Vol] 4.5 mmol/L Normal 3.5-5.1 [facility] Comment on above: Performed By: #### B MP, HSTROPN #### [facility] [address] [address] [address] Temi Lux Sodium [Moles/Vol] 136 mmol/L Normal 136-145 [facility] Comment on above: Performed By: #### B MP, HSTROPN #### [facility] [address] [address] [address] Temi Lux Urea nitrogen [Mass/Vol] 16.0 mg/dL Normal 7.0-18.0 [facility] Comment on above: Performed By: #### B MP, HSTROPN #### [facility] [address] [address] [address] Temi Lux Urea nitrogen/Creatinine [Mass ratio] 17.6 mg/mg Normal [facility] Comment on above: Performed By: #### B MP, HSTROPN #### [facility] [address] [place], [place] [address] Dr. Temi Lux TROPONIN, HIGH SENSITIVITYon 06-27-2022 HSTROP 4.2 pg/mL Normal 4.0-76.1 [facility] Comment on above: Result Comment: CUT- OFF POINTS HAVE BEEN ESTABLISHED BASED ON THE FOURTH UNIVERSAL DEFINITIONS OF MYOCARDIAL INFARCTION. THE UPPER REFERENCE LIMIT (URL) OF TROPONIN, DEFINED THE 99TH PERCENTILE OF cTnI DISTRIBUTION IN A REFERENCE POPULATION, HAS BEEN CONFIRMED THE DECISION THRESHOLD FOR LA DIAGNOSIS. Performed By: #### B MP, HSTROPN #### [facility] [address] [place], [place] [address] Dr. Temi Lux XR CHEST 1 Von [...] BILL GONZALEZ Date: 2022-06-27 18:22 Normal [facility] Covid-19 PCR (CVDTB)on 12-24 SARS-CoV-2 (COVID-19) RNA HERBERTH+probe Ql (Unsp spec) Detected Critically abnormal NOT DETECTED [facility] Comment on above: Result Comment: This test is not yet approved or cleared by the [place] FDA. When there are no FDA-approved or cleared tests available, and other criteria are met, FDA can make tests available under an emergency access mechanism called an Emergency Use Authorization (EUA). The EUA for this test is supported by the Paper Handler of Health and Human Service's declaration that [...] for this test is supported by the Bear of Health and Human Service's (HHS's) declaration [...] no longer be used). Performed By: #### DIA COLON #### [facility] [address] [place] [address] Dr. Temi Lux CARDIAC KAROL 3-6on 2 CK [Catalytic activity/Vol] 72 U/L Normal 39-308 [facility] Comment on above: Performed By: #### Gino PETER, DIA #### [facility] [address] [place] [address] Dr. Temi Lux CK.MB [Mass/Vol] 0.71 ng/mL Normal <=3.60 [facility] Comment on above: Performed By: #### DIA COLON #### [facility] [address] [place] [address] Dr. Temi Lux HSTROP 4.7 pg/mL Normal 4.0-76.1 [facility] Comment on above: Result Comment: CUT- OFF POINTS HAVE BEEN ESTABLISHED BASED ON THE FOURTH UNIVERSAL DEFINITIONS OF MYOCARDIAL INFARCTION. THE UPPER REFERENCE LIMIT (URL) OF TROPONIN, DEFINED THE 99TH PERCENTILE OF cTnI DISTRIBUTION IN A REFERENCE POPULATION, HAS BEEN CONFIRMED THE DECISION THRESHOLD FOR [place] DIAGNOSIS. Performed By: #### Gino PETER, DIA #### [facility] [address] [place] [address] Dr. Temi Lux CARDIAC KAROL ADMITon 022 CK [Catalytic activity/Vol] 80 U/L Normal 39-308 [facility] Comment on above: Performed By: #### C MADM, BMP #### [facility] [address] [place] [address] Dr. Temi Lux CK.MB [Mass/Vol] 0.66 ng/mL Normal <=3.60 [facility] Comment on above: Performed By: #### C STEVENM, BMP #### [facility] [address] [place] [address] Dr. Temi Lux HSTROP 5.6 pg/mL Normal 4.0-76.1 [facility] Comment on above: Result Comment: CUT- OFF POINTS HAVE BEEN ESTABLISHED BASED ON THE FOURTH UNIVERSAL DEFINITIONS OF MYOCARDIAL INFARCTION. THE UPPER REFERENCE LIMIT (URL) OF TROPONIN, DEFINED THE 99TH PERCENTILE OF cTnI DISTRIBUTION IN A REFERENCE POPULATION, HAS BEEN CONFIRMED THE DECISION THRESHOLD FOR [place] DIAGNOSIS. Performed By: #### C ROME, BMP #### [facility] [address] [place] [address] Dr. Temi Lux BARBARA 25 ng/mL Normal 16-96 [facility] Comment on above: Performed By: #### C ROME, BMP #### [facility] [address] [place] [address] Dr. Temi Lux CBC AUTO DIFFon 12-17-2021 BASO # 0.1 103/ul Normal 0.0-0.1 [facility] Comment on above: Performed By: #### C BC #### [facility] [address] [place] [address] Dr. Temi Lux Basophils/100 WBC (Bld) 0.7 % Normal 0.2-2.0 [facility] Comment on above: Performed By: #### C BC #### [facility] [address] [place] [address] Dr. Temi Lux EO # 0.3 103/ul Normal 0.0-0.7 [facility] Comment on above: Performed By: #### C BC #### [facility] [address] [place] [address] Dr. Temi Lux Eosinophils/100 WBC (Bld) 2.6 % Normal 0.9-7.0 [facility] Comment on above: Performed By: #### C BC #### [facility] [address] [place] [address] Dr. Temi Lux Erythrocyte distribution width (RBC) [Ratio] 11.7 % Normal 11.0-15.0 [facility] Comment on above: Performed By: #### C BC #### [facility] [address] [place] [address] Dr. Temi Lux Hematocrit (Bld) [Volume fraction] 41.8 % Critically low 42.0-54.0 [facility] Comment on above: Performed By: #### C BC #### [facility] [address] [place] [address] Dr. Temi Lux Hemoglobin (Bld) [Mass/Vol] 14.3 g/dL Normal 14.0-18.0 [facility] Comment on above: Performed By: #### C BC #### [facility] [address] [place] [address] Dr. Temi Lux IG # 0.03 10e3/ul Normal 0.00-0.03 [facility] Comment on above: Performed By: #### C BC #### [facility] [address] [place] [address] Dr. Temi Lux IG % 0.2 % Normal 0.0-0.5 [facility] Comment on above: Performed By: #### C BC #### [facility] [address] [place] [address] Dr. Temi Lux LYMPH # 3.7 103/ul Normal 1.2-3.8 [facility] Comment on above: Performed By: #### C BC #### [facility] [address] [place] [address] Dr. Temi Lux Lymphocytes/100 WBC (Bld) 31.0 % Normal 20.5-60.0 [facility] Comment on above: Performed By: #### C BC #### [facility] [address] [place] [address] Dr. Temi Lux MANUAL DIFF REQ NO Normal [facility] Comment on above: Performed By: #### C BC #### [facility] [address] [place] [address] Dr. Temi Lux MCH (RBC) [Entitic mass] 31.2 pg Normal 25.9-34.0 [facility] Comment on above: Performed By: #### C BC #### [facility] [address] [address] [address] Temi Lux MCHC (RBC) [Mass/Vol] 34.2 g/dL Normal 29.9-35.2 [facility] Comment on above: Performed By: #### C BC #### [facility] [address] [address] [address] Temi Lux MCV (RBC) [Entitic vol] 91.1 fL Normal 80.0-94.0 [facility] Comment on above: Performed By: #### C BC #### [facility] [address] [address] [address] Temi Lux MONO # 0.7 103/ul Normal 0.3-0.8 [facility] Comment on above: Performed By: #### C BC #### [facility] [facility] [address] [address] [address] Temi Lux Monocytes/100 WBC (Bld) 5.4 % Normal 1.7-12.0 [facility] Comment on above: Performed By: #### C BC #### [facility] [address] [address] [address] Temi Lux NEUT # 7.3 103/ul Critically high 1.4-6.5 The [facility] Comment on above: Performed By: #### C BC #### [facility] [address] [address] [address] Temi Lux Neutrophils/100 WBC (Bld) 60.1 % Normal 43.0-75.0 [facility] Comment on above: Performed By: #### C BC #### [facility] [address] [address] [address] Temi Lux Platelet mean volume (Bld) [Entitic vol] 10.1 fL Normal 9.5-13.5 [facility] Comment on above: Performed By: #### C BC #### [facility] [address] [address] [address] Temi Lux PLT 252 103/ul Normal 150-450 [facility] Comment on above: Performed By: #### C BC #### [facility] [address] [place] [address] Dr. Temi Lux RBC 4.59 106/ul Critically low 4.70-6.10 The [facility] Comment on above: Performed By: #### C BC #### [facility] [address] [address] [address] Temi Lux WBC 12.1 103/ul Critically high 4.0-11.0 [facility] Comment on above: Performed By: #### C BC #### [facility] [address] [place] [address] Dr. Temi Lux D-DIMERon 12-17-2021 D-DIMER <0.19 Normal <=0.59 [facility] Comment on above: Performed By: #### D DIM #### [facility] [address] [place] [address] Dr. Temi Lux D-DIMER COMMENTS SEE BELOW Normal The [facility] Comment on above: Result Comment: Incr eases [...] hospitalization. Performed By: #### D DIM #### [facility] [address] [place] [address] Dr. Temi Lux PROF CHEM 8 (BAS METB)on Anion gap [Moles/Vol] 12.4 mmol/L Normal The [facility] Comment on above: Performed By: #### C MADM, BMP #### [facility] [address] [place] [address] Dr. Temi Lux Calcium [Mass/Vol] 9.1 mg/dL Normal 8.5-10.1 [facility] Comment on above: Performed By: #### C MADM, BMP #### [facility] [address] [place] [address] Dr. Temi Lux Chloride [Moles/Vol] 105 mmol/L Normal 98-107 [facility] Comment on above: Performed By: #### C MADM, BMP #### [facility] [address] [place] [address] Dr. Temi Lux CO2 [Moles/Vol] 25.5 mmol/L Normal 21.0-32.0 [facility] Comment on above: Performed By: #### C MADM, BMP #### [facility] [address] [place] [address] Dr. Temi Lux Creatinine [Mass/Vol] 1.10 mg/dL Normal 0.70-1.30 [facility] Comment on above: Performed By: #### C STEVENM, BMP #### [facility] [address] [place] [address] Dr. Temi Lux EGFR-AF MEXICAN >60 Normal >=60 [facility] Comment on above: Performed By: #### C STEVENM, BMP #### [facility] [address] [place] [address] Dr. Temi Lux EGFR-NON AF MEXICAN >60 Normal >=60 [facility] Comment on above: Performed By: #### C STEVENM, BMP #### [facility] [address] [place] [address] Dr. Temi Lux Glucose [Mass/Vol] 108 mg/dL Critically high 74-106 [facility] Comment on above: Performed By: #### C MADM, BMP #### [facility] [address] [address] [address] Temi Lux Potassium [Moles/Vol] 3.9 mmol/L Normal 3.5-5.1 [facility] Comment on above: Performed By: #### C MADM, BMP #### [facility] [address] [place] [address] Dr. Temi Lux Sodium [Moles/Vol] 139 mmol/L Normal 136-145 [facility] Comment on above: Performed By: #### C STEVENM, BMP #### [facility] [address] [address] [address] Temi Lux Urea nitrogen [Mass/Vol] 23.0 mg/dL Critically high 7.0-18.0 [facility] Comment on above: Performed By: #### C ROME, BMP #### [facility] [address] [address] [address] Temi Lux Urea nitrogen/Creatinine [Mass ratio] 20.9 mg/mg Normal [facility] Comment on above: Performed By: #### C ROME, BMP #### [facility] [address] [address] [address] Temi Lux XR CHEST 2 Von [...] BRENTON SALAS Date: 2021-12-16 23:05 Normal The [facility] Covid-19 PCR (CVDTB)on 07-28 SARS-CoV-2 (COVID-19) RNA HERBERTH+probe Ql (Unsp spec) Not detected Normal NOT DETECTED The [facility] Comment on above: Result Comment: This test is not yet approved or cleared by the [place] FDA. When there are no FDA-approved or cleared tests available, and other criteria are met, FDA can make tests available under an emergency access mechanism called an Emergency Use Authorization (EUA). The EUA for this test is supported by the Paper Handler of Health and Human Service's (HHS's) declaration [...] consistent with SARS-CoV-2. Performed By: #### C [facility] #### [facility] [address] [place] [id number] [address] Temi Lux XR hand RT min 3V*on 021 XR hand RT min 3V* [facility] Other XR hand RT min 3V* [facility] Sessions Other XR hand RT min 3V* [address] [place] [address] Sessions Other XR hand RT min 3V* [place] [address] [facility] Other XR hand RT min 3V* XRay Report [facility] Other XR hand RT min 3V* Signed [facility] Other XR hand RT min 3V* Patient: Danie Funes MR#: [id number] [facility] Other XR hand RT min 3V* 6091 Sessions Other XR hand RT min 3V* : 1990 Acct:[id number] [facility] Other XR hand RT min 3V* Age/Sex: 31 / M ADM Date: 04/12/21 [facility] Other XR hand RT min 3V* Loc: XDUCLY Room: Ty pe: REG CLI [facility] Other XR hand RT min 3V* Attending Dr: Ingrid Garza BATCH RECORDS CLERK-C [facility] Other XR hand RT min 3V* Ordering Provider: MIRTHA GARZAP-Gino [facility] Other XR hand RT min 3V* Date of Service: 04/12/21 [facility] Other XR hand RT min 3V* XR/XR hand RT min 3V*: RIGHT HAND INJURY [facility] Other XR hand RT min 3V* Copies to: MIRTHA GARZA [facility] Other XR hand RT min 3V* CLINICAL HISTORY: Desmond palacio fell yesterday catching himself with right hand on the underground. The [facility] Other XR hand RT min 3V* fingers were bent ba ck. Pain and swelling to the second and third distal metacarpals and over the [facility] Other XR hand RT min 3V* index and the middle fingers. Old fourth and fifth metacarpal fractures. Sessions Other XR hand RT min 3V* XR hand RT min 3V* Sessions Other XR hand RT min 3V* COMPARISON: None [facility] Other XR hand RT min 3V* FINDINGS: AP, latera l and oblique views of the right hand were obtained. A small cortical [facility] Other XR hand RT min 3V* fracture is demonstr ated at the base of the mid phalanx of the middle finger radially. Old fractures [facility] Other XR hand RT min 3V* are shown at the fou rth and fifth metacarpals. No other significant acute bone or joint [facility] Other XR hand RT min 3V* abnormalities are no pelon. Moderate soft tissue swelling is shown at the proximal portions of the Sessions Other XR hand RT min 3V* index and middle fingers. Sessions Other XR hand RT min 3V* X R/XR hand RT min 3V* Sessions Other XR hand RT min 3V* IMPRESSION: Sessions Other XR hand RT min 3V* A SMALL CORTICAL FRA CTURE AT THE BASE OF THE MID PHALANX OF THE MIDDLE FINGER. Sessions Other XR hand RT min 3V* Impression dictated by: Gregory Bhatt M.D.04/12/2021 11:30 AM [facility] Other XR hand RT min 3V* Dictation Location: [address] [address] [employer] [facility] [employer] Other XR hand RT min 3V* Transcribed By: [facility] 04/12/21 1130 Sessions Other XR hand RT min 3V* Dictated By: Gregory Bhatt MD 04/12/21 1125 [facility] Other XR hand RT min 3V* Signed By: [facility] Other XR hand RT min 3V* 04/12/21 1130 [facility] [employer] Other Vital Signs Date Time Vital Sign Value Performing Clinician Facility 10-29-2024 [id number] Body height 193.04 cm [facility]ICIAN [facility] 10-29-2024 13:15-0400 Body mass index (BMI) [Ratio] 29.1 kg/m2 PHYSICIAN NO [facility] 10-29-2024 13:15-0400 Body temperature 97.6 [degF] PHYSICIAN NO [facility] 10-29-2024 13:15-0400 Body weight 108.52 kg PHYSICIAN [facility] 10-29-2024 13:15-0400 Diastolic blood pressure 90 mm[Hg] PHYSICIAN NO [facility] 10-29-2024 13:15-0400 Heart rate 102 /min PHYSICIAN [facility] 10-29-2024 13:15-0400 Respiratory rate 18 /min PHYSICIAN NO [facility] 10-29-2024 13:15-0400 SaO2% (BldA) [Mass fraction] 98 % PHYSICIAN NO [facility] 10-29-2024 13:15-0400 Systolic blood pressure 137 mm[Hg] PHYSICIAN NO [facility] 09-09-2024 16:04-0400 Body mass index (BMI) [Ratio] 30.1 kg/m2 Esme Calderon MD Work Phone: [facility] 09-09-2024 16:04-0400 Body weight 106.32 kg Esme Calderon MD Work Phone: [facility] 09-09-2024 16:04-0400 Diastolic blood pressure 95 mm[Hg] Esme Calderon MD Work Phone: [facility] 09-09-2024 16:04-0400 Heart rate 97 /min Esme Calderon MD Work Phone: [facility] 09-09-2024 16:04-0400 SaO2% (BldA) [Mass fraction] 100 % Esme Calderon MD Work Phone: [facility] 09-09-2024 16:04-0400 Systolic blood pressure 143 mm[Hg] Esme Calderon MD Work Phone: [facility] 08-01-2024 19:16-0500 Diastolic blood pressure 73 mm[Hg] PHYSICIAN NO [facility] 08-01-2024 19:16-0500 Heart rate 73 /min PHYSICIAN [facility] 08-01-2024 19:16-0500 Respiratory rate 21 /min PHYSICIAN NO [facility] 08-01-2024 19:16-0500 SaO2% (BldA) [Mass fraction] 98 % PHYSICIAN NO [facility] 08-01-2024 19:16-0500 Systolic blood pressure 128 mm[Hg] PHYSICIAN NO [facility] 08-01-2024 18:39-0500 Body height 193.04 cm PHYSICIAN [facility] 08-01-2024 18:39-0500 Body weight 112 kg PHYSICIAN [facility] 08-01-2024 16:50-0500 Body temperature 98.4 [degF] PHYSICIAN NO [facility] 12-29-2023 12:33-0400 Body height 187.96 cm PHYSICIAN [facility] 12-29-2023 12:33-0400 Body mass index (BMI) [Ratio] 30.9 kg/m2 PHYSICIAN NO [facility] 12-29-2023 12:33-0400 Body temperature 97.8 [degF] PHYSICIAN NO [facility] 12-29-2023 12:33-0400 Body weight 109.42 kg PHYSICIAN [facility] 12-29-2023 12:33-0400 Diastolic blood pressure 85 mm[Hg] PHYSICIAN NO [facility] 12-29-2023 12:33-0400 Heart rate 101 /min PHYSICIAN [facility] 12-29-2023 12:33-0400 Respiratory rate 18 /min PHYSICIAN NO [facility] 12-29-2023 12:33-0400 SaO2% (BldA) [Mass fraction] 97 % PHYSICIAN NO [facility] 12-29-2023 12:33-0400 Systolic blood pressure 133 mm[Hg] PHYSICIAN NO [facility] 11-01-2023 14:22-0400 Diastolic blood pressure 86 mm[Hg] Esme Calderon MD Work Phone: [facility] 11-01-2023 14:22-0400 Systolic blood pressure 128 mm[Hg] Esme Calderon MD Work Phone: [facility] 11-01-2023 14:19-0400 Body mass index (BMI) [Ratio] 30.48 kg/m2 Esme Calderon MD Work Phone: [facility] 11-01-2023 14:19-0400 Body weight 107.68 kg Esme Calderon MD Work Phone: [facility] 11-01-2023 14:19-0400 Heart rate 92 /min Esme Calderon MD Work Phone: [facility] 11-01-2023 14:19-0400 SaO2% (BldA) [Mass fraction] 95 % Esme Calderon MD Work Phone: [facility] 10-20-2022 15:28-0400 Body weight 103.42 kg Esme Calderon MD Work Phone: [facility] 10-20-2022 15:28-0400 Diastolic blood pressure 85 mm[Hg] Esme Calderon MD Work Phone: [facility] 10-20-2022 15:28-0400 Heart rate 88 /min Esme Calderon MD Work Phone: [facility] 10-20-2022 15:28-0400 SaO2% (BldA) [Mass fraction] 98 % Esme Calderon MD Work Phone: [facility] 10-20-2022 15:28-0400 Systolic blood pressure 130 mm[Hg] Esme Calderon MD Work Phone: [facility] 10-20-2022 09:06-0400 Body height 188 cm Mri (I-Stat/1.5t) Work Phone: [facility] 10-20-2022 09:06-0400 Body weight 103.42 kg Mri (I-Stat/1.5t) Work Phone: [facility] 10-20-2022 09:06-0400 Diastolic blood pressure 81 mm[Hg] Mri (I-Stat/1.5t) Work Phone: [facility] 10-20-2022 09:06-0400 Heart rate 97 /min Mri (I-Stat/1.5t) Work Phone: [facility] 10-20-2022 09:06-0400 Systolic blood pressure 143 mm[Hg] Mri (I-Stat/1.5t) Work Phone: [facility] 04-12-2021 11:25-0400 Body height 186.69 cm Mirtha Garza Other [facility] Other 04-12-2021 11:25-0400 Body mass index (BMI) [Ratio] 28.5 kg/m2 Mirtha Garza Other [facility] Other 04-12-2021 11:25-0400 Body temperature 98.6 [degF] Mirtha Garza Other [facility] Other 04-12-2021 11:25-0400 Body weight 99.34 kg Mirtha Garza Other [facility] Other 04-12-2021 11:25-0400 Diastolic blood pressure 86 mm[Hg] Mirtha Garza Other [facility] Other 04-12-2021 11:25-0400 Respiratory rate 18 /min Mirtha Garza Other [facility] Other 04-12-2021 11:25-0400 SaO2% (BldA) [Mass fraction] 99 % Mirtha Garza Other [facility] Other 04-12-2021 11:25-0400 Systolic blood pressure 140 mm[Hg] Mirtha Rodriguesault Other Sessions Other Encounters Encounter Date Encounter Type Care Provider Facility Start: 04-14-2025 ambulatory VERITO Byrnes ity: [facility] Start: 04-07-2025 ambulatory Lavon WALDROP Facility :[facility] Start: 04-03-2025 End: 04-03-2025 ambulatory Bijal X Ailyn Facility:[facility] Start: 04-03-2025 End: 04-03-2025 Patient encounter procedure Bijal Robertson [facility] Start: 01-30-2025 End: 01-30-2025 ambulatory Lavon WALDROP Facility:[facility] Start: 01-30-2025 End: 01-30-2025 Patient encounter procedure Lavon WALDROP [facility] Start: 01-09-2025 ambulatory Lavon WALDROP Facility :[facility] Start: 10-29-2024 End: 10-29-2024 ambulatory PHYSICIAN [facility] Work Phone: Start: 10-29-2024 End: 10-29-2024 Patient encounter procedure PHYSICIAN NO [facility] Work Phone: Start: 10-10-2024 End: 10-10-2024 Refill Esme Calderon MD Work Phone: Cardiology Comment on above: Refill Request Start: 09-09-2024 End: 09-09-2024 ambulatory ESME CALDERON Facility:[facility] Start: 09-09-2024 End: 09-09-2024 Patient encounter procedure sEme Calderon MD Work Phone: Cardiology Comment on above: Dysplastic tricuspid valve (Primary Dx); S/P tricuspid valve repair; Primary hypertension Start: 09-09-2024 End: 09-09-2024 ambulatory ESME CALDERON Facility:[facility] Start: 08-01-2024 End: 08-01-2024 Emergency department patient visit PHYSICIAN NO [facility] Work Phone: Start: 07-29-2024 End: 08-12-2024 Telephone encounter Johnna LORENZO Work Phone: [facility] Start: 06-18-2024 Non-patient / Non-visit PHYSICIAN NO [facility] Work Phone: Start: 06-17-2024 End: 06-17-2024 Telephone encounter Esme Calderon MD Work Phone: Cardiology Comment on above: Patient Question Start: 12-29-2023 End: 12-29-2023 ambulatory PHYSICIAN NO [facility] Work Phone: Start: 12-29-2023 End: 12-29-2023 Patient encounter procedure PHYSICIAN NO [facility] Work Phone: Start: 11-01-2023 End: 11-01-2023 ambulatory [facility] Facility:[facility] Start: 11-01-2023 End: 11-01-2023 Patient encounter procedure Esme Calderon MD Work Phone: Cardiology Comment on above: Dysplastic tricuspid valve (Primary Dx); S/P tricuspid valve repair; Primary hypertension; Obesity, Class I, BMI 30-34.9 Start: 11-01-2023 End: 11-01-[address] [facility] Facility:[facility] Start: 11-01-2023 End: 11-01-[address] [facility] Facility:[facility] Start: 10-20-2022 End: 10-20-2022 Orders Only [...] ARCEO Facility:[facility] Start: 05-30-2022 Orders Only Esme Calderon MD Work Phone: Cardiology Comment on above: S/P tricuspid valve repair (Primary Dx) Start: 01-04-2022 End: 01-04-[address] CARLOS ARCEO Facility:[facility] Start: 12-16-2021 End: 12-17-[address] CARLOS ARCEO Facility:[facility] Start: 08-20-2021 End: 08-20-[address] CARLOS ARCEO Facility:[facility] Start: 04-12-2021 Office outpatient vi sit 15 minutes Mirtha Garza [facility] Procedures Date Procedure Procedure Detail Performing Clinician Start: 08-01-2024 Plain chest X-ray PHYSI PATRICIA [facility] Start: 08-01-2024 CT angiography of thorax PHYSICIAN NO [facility] Start: 08-01-2024 Respiratory Panel (PCR) PHYSICIAN NO [facility] Start: 12-29-2023 Plain X-ray of right forearm PHYSICIAN NO [facility] Start: 12-29-2023 Plain X-ray of right hand PHYSICIAN NO [facility] Start: 10-20-2022 Cardiac mri for [facility] flow mapping Esme Calderon MD Work Phone: Appendectomy Lavon WALDROP Open heart surgery Lavon HAND Repair of heart valve Jamison WALDROP Plan of Treatment Date Care Activity Detail Author Start: 09-12-2025 End: 12-12-2025 Basic metabolic 2000 panel - Serum or Plasma BASIC METABOLIC PANEL Lab Routine Dysplastic tricuspid valve Expected: 09/12/2025, Expires: 12/12/2025 [facility] Comment on above: Expected: 09/12/2025 , Expires: 12/12/2025 Start: 09-12-2025 End: 12-12-2025 CBC panel - Blood by Automated count COMPLETE BLOOD COUNT Lab Routine Dysplastic tricuspid valve Expected: 09/12/2025, Expires: 12/12/2025 [facility] Work Phone: Comment on above: Expected: 09/12/2025 , Expires: 12/12/2025 Start: 09-12-2025 End: 12-12-2025 Natriuretic peptide.B prohormone N-Terminal [Mass/volume] in Serum or Plasma NT PRO BNP Lab Routine Dysplastic tricuspid valve Expected: 09/12/2025, Expires: 12/12/2025 [facility] Comment on above: Expected: 09/12/2025 , Expires: 12/12/2025 Start: 11-04-2024 End: 02-03-2025 CBC panel - Blood by Automated count COMPLETE BLOOD COUNT Lab Routine Dysplastic tricuspid valve Expected: 11/04/2024, Expires: 02/03/2025 [facility] Comment on above: Expected: 11/04/2024 , Expires: 02/03/2025 Start: 11-04-2024 End: 02-03-2025 Comprehensive metabolic 2000 panel - Serum or Plasma COMPREHENSIVE METABOLIC PANEL Lab Routine Dysplastic tricuspid valve Expected: 11/04/2024, Expires: 02/03/2025 [facility] Work Phone: Comment on above: Expected: 11/04/2024 , Expires: 02/03/2025 Start: 11-04-2024 End: 02-03-2025 Lipid 1996 panel - Serum or Plasma LIPID PANEL BASIC Lab Routine Dysplastic tricuspid valve Expected: 11/04/2024, Expires: 02/03/2025 [facility] Comment on above: Expected: 11/04/2024 , Expires: 02/03/2025 Start: 02-25-2024 Covid-19 Vaccine ( season) Covid-19 Vaccine () [facility] Start: 02-25-2024 Influenza vaccination C [facility] Start: 10-25-2023 End: 12-25-2023 CBC panel - Blood by Automated count CBC Lab Routine Dysplastic tricuspid valve Expected: 10/25/2023, Expires: 12/25/2023 [facility] Work Phone: Comment on above: Expected: 10/25/2023 , Expires: 12/25/2023 Start: 10-25-2023 End: 12-25-2023 Comprehensive metabolic 2000 panel - Serum or Plasma COMP METABOLIC PANEL Lab Routine Dysplastic tricuspid valve Expected: 10/25/2023, Expires: 12/25/2023 [facility] Work Phone: Comment on above: Expected: 10/25/2023 , Expires: 12/25/2023 Start: 10-25-2023 ECG COMPLETE ECG COMPLETE E CG Routine Dysplastic tricuspid valve Expected: 10/25/2023 [facility] Work Phone: Comment on above: Expected: 10/25/2023 Start: 10-25-2023 ECHO SPECIALIST COMP JUAN JOSE ADULT CONGENITAL ECHO SPECIALIST COMPLEX ADULT CONGENITAL Cardiology Routine Dysplastic tricuspid valve Expected: 10/25/2023 [facility] Work Phone: Comment on above: Expected: 10/25/2023 Start: 10-25-2023 EXERCISE STRESS ECG METABOLIC (WITHOUT IMAGING) EXERCISE STRESS ECG METABOLIC (WITHOUT IMAGING) Cardiology Routine Dysplastic tricuspid valve Expected: 10/25/2023 [facility] Work Phone: Comment on above: Expected: 10/25/2023 Start: 10-25-2023 End: 12-25-2023 LIPID PANEL, NONFASTING LIPID PANEL, NONFASTING Lab Routine Dysplastic tricuspid valve Expected: 10/25/2023, Expires: 12/25/2023 [facility] Work Phone: Comment on above: Expected: 10/25/2023 , Expires: 12/25/2023 Start: 10-25-2023 End: 12-25-2023 Natriuretic peptide.B prohormone N-Terminal [Mass/volume] in Serum or Plasma NT PRO BNP Lab Routine Dysplastic tricuspid valve Expected: 10/25/2023, Expires: 12/25/2023 [facility] Work Phone: Comment on above: Expected: 10/25/2023 , Expires: 12/25/2023 Start: 06-26-2023 Behavioral Health Screening Behavioral Health Screening [facility] Start: 02-24-2023 Covid-19 Vaccine ( season) Covid-19 Vaccine () [facility] Start: 02-24-2023 Influenza vaccination INFLUENZ A (Season Ended) [facility] Start: 06-26-2022 DEPRESSION ASSESSMENT DEPRESSION ASS ESSMENT [facility] Start: 02-24-2022 Influenza vaccination INFLUENZA (#1) [facility] Start: 06-26-2021 DEPRESSION ASSESSMENT DEPRESSION ASS [facility] Start: 2009 DTaP,Tdap and Td Vac cines (1 - Tdap) DTaP,Tdap and Td Vaccines (1 - Tdap) [facility] Start: 2009 Hepatitis B Vaccine (1 of 3 - 19+ 3-dose series) Hepatitis B Vaccine (1 of 3 - 19+ 3-dose series) [facility] Start: 2009 Urine microalbumin profile [facility] Start: 2008 Adult BMI Screening Adult BMI Screen ing [facility] Start: 2008 ANNUAL PCP TEAM THREE KNIFE TRIMMER CELESTINO DISEASE VISIT ANNUAL PCP TEAM CHRONIC DISEASE VISIT [facility] Start: 2008 Anxiety Screening Anxiety Screening [facility] Start: 2008 BP CONTROLLED (<130/80) BP CONTROLLE D (<130/80) [facility] Start: 2008 Depression Screening Depression Scre [facility] Start: 2008 HEPATITIS C SCREENING HEPATITIS C [facility] Start: 2008 Hepatitis C screening Hepatitis C [facility] Start: 2008 HIV SCREENING HIV SCREENING [facility] Start: 2008 HIV screening HIV Screening [facility] Start: 2002 Depression Screening Depression Scre [facility] Start: 2002 Tobacco Screening Tobacco Screening [facility] Start: 1996 PNEUMOCOCCAL (1 - PCV) PNEUMOCOCCAL (1 - PCV) [facility] Start: 1990 COVID-19 VACCINE (#1) COVID-19 VACCI NE (#1) [facility] Start: 1990 HEPATITIS B (1 of 3 - 3-dose series) HEPATITIS B (1 of 3 - 3-dose series) [facility] End: 05-30-2023 ECG COMPLETE ECG COMPLETE ECG Routine S/P tricuspid valve repair 1 Occurrences starting 05/30/2022 until 05/30/2023 [facility] Work Phone: Comment on above: 1 Occurrences starti ng 05/30/2022 until 05/30/2023 End: 11-04-2024 ECG COMPLETE ECG COMPLETE ECG Routine Dysplastic tricuspid valve 1 Occurrences starting 11/05/2023 until 11/04/2024 [facility] Comment on above: 1 Occurrences starti ng 11/05/2023 until 11/04/2024 End: 09-12-2025 ECG COMPLETE ECG COMPLETE ECG Routine Dysplastic tricuspid valve 1 Occurrences starting 09/12/2024 until 09/12/2025 [facility] Comment on above: 1 Occurrences starti ng 09/12/2024 until 09/12/2025 End: 11-04-2024 ECHO SPECIALIST COMPLEX ADULT CONGENITAL ECHO SPECIALIST COMPLEX ADULT CONGENITAL Cardiology Routine Dysplastic tricuspid valve 1 Occurrences starting 11/05/2023 until 11/04/2024 [facility] Comment on above: 1 Occurrences starti ng 11/05/2023 until 11/04/2024 End: 09-12-2025 ECHO SPECIALIST COMPLEX ADULT CONGENITAL ECHO SPECIALIST COMPLEX ADULT CONGENITAL Cardiology Routine Dysplastic tricuspid valve 1 Occurrences starting 09/12/2024 until 09/12/2025 [facility] Comment on above: 1 Occurrences starti ng 09/12/2024 until 09/12/2025 End: 05-30-2023 Echocardiography ECHO Cardiology Routine S/P tricuspid valve repair 1 Occurrences starting 05/30/2022 until 05/30/2023 [facility] Work Phone: Comment on above: 1 Occurrences starti ng 05/30/2022 until 05/30/2023 End: 09-06-2023 Echocardiography ECHO Cardiology Routine Dysplastic tricuspid valve 1 Occurrences starting 09/05/2022 until 09/06/2023 [facility] Work Phone: Comment on above: 1 Occurrences starti ng 09/05/2022 until 09/06/2023 End: 11-19-2023 MRA CHEST CARDIOVASCULAR WO IVCON MRA CHEST CARDIOVASCULAR WO IVCON Radiology Routine Dysplastic tricuspid valve 1 Occurrences starting 10/20/2022 until 11/19/2023 [facility] Work Phone: Comment on above: 1 Occurrences starti ng 10/20/2022 until 11/19/2023 End: 10-20-2022 MRA CHEST CARDIOVASCULAR WO IVCON MRA CHEST CARDIOVASCULAR WO IVCON Radiology Routine Dysplastic tricuspid valve 1 Occurrences starting 10/20/2022 until 10/20/2022 [facility] Work Phone: Comment on above: 1 Occurrences starti ng 10/20/2022 until 10/20/2022 End: 11-19-2023 MRI CARDIAC MORPH FUNC WO IVCON MRI CARDIAC MORPH FUNC WO IVCON Radiology Routine Cardiomyopathy, unspecified type (HCC) 1 Occurrences starting 10/20/2022 until 11/19/2023 [facility] Work Phone: Comment on above: 1 Occurrences starti ng 10/20/2022 until 11/19/2023 MRI CARDIAC MORPH FU NC WO IVCON MRI CARDIAC MORPH FUNC WO IVCON Radiology Routine Cardiomyopathy, unspecified type (HCC) 10/20/2022 10:13 AM EDT [facility] Work Phone: End: 10-20-2022 MRI CARDIAC MORPH FUNC WO/W IVCON MRI CARDIAC MORPH FUNC WO/W IVCON Radiology Routine Dysplastic tricuspid valve 1 Occurrences starting 10/20/2022 until 10/20/2022 [facility] Work Phone: Comment on above: 1 Occurrences starti ng 10/20/2022 until 10/20/2022 Patient Education Chest pain [facility] Work Phone: Patient referral [facility] Work Phone: XR Hand - right GE 3 Views [facility] XR Radius and Ulna - right 2 Views [facility] Immunizations Immunization Date Immunization Notes Care Provider Chani kauffman 06-04-2003 influenza virus vaccine, unspecified formulation Lavon WALDROP [facility] 02-14-2003 hepatitis B vaccine, pediatric or pediatric/adolescent dosage Lavon WALDROP [facility] 02-14-2003 measles, mumps and rubella virus vaccine Lavon WALDROP [facility] 02-22-1993 DTaP, unspecified formulation Lavon WALDROP [facility] 02-22-1993 Hib, unspecified formulation Lavon WALDROP [facility] 02-22-1993 poliovirus vaccine, unspecified formulation Lavon WALDROP [facility] 04-10-1992 measles, mumps and rubella virus vaccine Lavon WALDROP [facility] 1990 Hib, unspecified formulation Lavon WALDROP [facility] 1990 poliovirus vaccine, unspecified formulation Lavon WALDROP [facility] 1990 poliovirus vaccine, unspecified formulation Lavon WALDROP [facility] Payers Date Payer Category Payer Self-pay [id number] 2023 Private Health Insurance [id number] 2023 Unknown [id number] 2019 Unknown [id number] 1990 Unknown [id number] 1990 Unknown [id number] 593 1990 Unknown [id number] 593 1990 Unknown [id number] 593 1990 Unknown [id number] 727 1990 Unknown [id number] 727 1990 Unknown [id number] 727 1959 [facility] [id number] Private Health Insurance [id number] Unknown [id number] Unknown [id number] 531 Social History Date Type Detail Facility Unknown if ever smoked [facility] Other Start: 05-07-2020 End: 09-09-2024 Sex Assigned At [employer] Other Start: 03-21-2018 End: 06-17-2018 Tobacco smoking status PRIS Smokes tobacco daily [facility] Start: 05-09-2011 End: 03-25-2023 History of tobacco use Cigarette Smoker [facility] Start: 03-21-2018 End: 09-09-2024 Cigarettes smoked current (pack per day) - Reported 0.5 [facility] Start: 03-21-2018 End: 11-01-2023 Tobacco use and exposure Smokeless tobacco non-user [facility] Start: 08-18-2021 Alcohol intake Ex-drinker (finding) [facility] Start: 05-07-2020 History SDOH Alcohol Frequency 5 [facility] Start: 05-07-2020 History SDOH Alcohol Std Drinks 2 [facility] Start: 05-07-2020 History SDOH Alcohol Binge 4 [facility] Start: 10-15-2020 Alcohol Comment Quit 07/2020 [facility] Start: 1990 Sex Assigned At Not on file [facility] Start: 06-30-2022 End: 09-09-2024 Alcohol intake Current drinker of alcohol (finding) [facility] Start: 06-30-2022 Alcohol Comment Social [facility] Start: 11-01-2023 [facility] Start: 05-09-2011 End: 03-25-2023 History of tobacco use Current smoker [facility] How often to you hav e a drink containing alcohol? 4 or more times a week [facility] How many standard drinks containing alcohol do you have on a typical day? 3 or 4 [facility] How often do you hav e 6 or more drinks on 1 occasion? Weekly [facility] National Score (1-10 0), lower number is lower risk 59 [facility] Start: 1990 Sex Assigned At Male [facility] Tobacco smoking stat [facility] Unknown if ever smoked [facility] Work Phone: Start: 08-19-2013 End: 08-01-2024 Sex Male (finding) [facility] Start: 06-17-2018 Alcohol Comment 3 times a week [employer] Tobacco vape Tobacco Use :. Current vaping or e-cigarette use Smokeless Tobacco Use:. Vaping [facility] Tobacco smoking status [facility] Medical Equipment Procedure Code Equipment Code Equipment Origin al Text Equipment Identifier Dates Jason Crowe Classic 34mm 39.2mm 32.3mm Oval Titanium Silicone - [id number] Start: 07-29-2016 Goals Date Patient Goal Desired Activity /State Personal health goal Functional Status Date Assessment Result Facility 08-02-2016 Are you deaf, or do you have serious difficulty hearing No 08/02/2016 1:52 PM EST Celestino Copeland APRN.CNP No [facility] Work Phone: 08-02-2016 Are you blind, or do you have serious difficulty seeing, even when wearing glasses No 08/02/2016 1:52 PM Celestino Thapa APRN.CNP No [facility] 08-02-2016 Do you have serious difficulty walking or climbing stairs No 08/02/2016 1:52 PM Celestino Thapa APRN.CNP No [facility] 08-02-2016 Do you have difficul ty dressing or bathing No 08/02/2016 1:52 PM Celestino Thapa APRN.CNP No [facility] 08-02-2016 Because of a physica l, mental, or emotional condition, do you have difficulty doing errands alone such as visiting a physician's office or shopping No 08/02/2016 1:52 PM Celestino Thapa APRN.CNP No [facility] Mental Status Date Assessment Result Facility 08-02-2016 Because of a physica l, mental, or emotional condition, do you have serious difficulty concentrating, remembering, or making decisions No 08/02/2016 1:52 PM Celestino Thapa APRN.CNP No [facility] Clinical Notes 07-30-2016 to 04-03-2025 Telephone Encounter - Catarina Ferreira - 10/10/2024 4:48 PM EDTTelephone Encounter - Catarina Ferreira - 10/10/2024 4:48 PM Esme Norton MD - 09/09/2024 3:45 PM EDT Note Date & Type Note Facility 04-03-2025 Hospital Discharg e instructions Patient Education 04/03/2025 14:18:58 Flank Pain, Adult Flank Pain, Adult Flank pain is pain that is located on the side of the body between the upper abdomen and the spine. This area is called the flank. The pain may occur over a short period of time (acute), or it may be long-term or recurring (chronic). It may be mild or severe. Flank pain can be caused by many things, including: Muscle soreness or injury. Kidney infection, kidney stones, or kidney disease. Stress. A disease of the spine (vertebral disk disease). A lung infection (pneumonia). Fluid around the lungs (pulmonary edema). A skin rash caused by the chickenpox virus (shingles). Tumors that affect the back of the abdomen. Gallbladder disease. Follow these instructions at home: Drink enough fluid to keep your urine pale yellow. Rest as told by your health care provider. Take aavp-coa-htbkayn and prescription medicines only as told by your health care provider. Keep a journal to track what has caused your flank pain and what has made it feel better. Keep all follow-up visits. This is important. Contact a health care provider if: Your pain is not controlled with medicine. You have new symptoms. Your pain gets worse. Your symptoms last longer than 2 3 days. You have trouble urinating or you are urinating very frequently. Get help right away if: You have trouble breathing or you are short of breath. Your abdomen hurts or it is swollen or red. You have nausea or vomiting. You feel faint, or you faint. You have blood in your urine. You have flank pain and a fever. These symptoms may represent a serious problem that is an emergency. Do not wait to see if the symptoms will go away. Get medical help right away. Call your local emergency services (911 in the [place] Do not drive yourself to the hospital. Summary Flank pain is pain that is located on the side of the body between the upper abdomen and the spine. The pain may occur over a short period of time (acute), or it may be long-term or recurring (chronic). It may be mild or severe. Flank pain can be caused by many things. Contact your health care provider if your symptoms get worse or last longer than 2 3 days. This information is not intended to replace advice given to you by your health care provider. Make sure you discuss any questions you have with your health care provider. Document Revised: 08/23/2021 Document Reviewed: 08/23/2021 [employer] Patient Education 2023 [employer]. Follow Up Care 03/17/2025 15:53:22 With:RADHA Robertson APRN, Bijal Sykes, BENITA, URL Address: When: Unknown Comments:pending imaging [facility] 04-03-2025 Note Patient Education Orthopedics Flank Pain, Adult Flank pain is pain that is located on the side of the body between the upper abdomen and the spine. This area is called the flank. The pain may occur over a short period of time (acute), or it may be long-term or recurring (chronic). It may be mild or severe. Flank pain can be caused by many things, including: ??? Muscle soreness or injury. ??? Kidney infection, kidney stones, or kidney disease. ??? Stress. ??? A disease of the spine (vertebral disk disease). ??? A lung infection (pneumonia). ??? Fluid around the lungs (pulmonary edema). ??? A skin rash caused by the chickenpox virus (shingles). ??? Tumors that affect the back of the abdomen. ??? Gallbladder disease. Follow these instructions at home: ??? Drink enough fluid to keep your urine pale yellow. ??? Rest as told by your health care provider. ??? Take lrzl-xje-akpfvnc and prescription medicines only as told by your health care provider. ??? Keep a journal to track what has caused your flank pain and what has made it feel better. ??? Keep all follow-up visits. This is important. Contact a health care provider if: ??? Your pain is not controlled with medicine. ??? You have new symptoms. ??? Your pain gets worse. ??? Your symptoms last longer than 2?3 days. ??? You have trouble urinating or you are urinating very frequently. Get help right away if: ??? You have trouble breathing or you are short of breath. ??? Your abdomen hurts or it is swollen or red. ??? You have nausea or vomiting. ??? You feel faint, or you faint. ??? You have blood in your urine. ??? You have flank pain and a fever. These symptoms may represent a serious problem that is an emergency. Do not wait to see if the symptoms will go away. Get medical help right away. Call your local emergency services (911 in the [place] Do not drive yourself to the hospital. Summary ??? Flank pain is pain that is located on the side of the body between the upper abdomen and the spine. ??? The pain may occur over a short period of time (acute), or it may be long-term or recurring (chronic). It may be mild or severe. ??? Flank pain can be caused by many things. ??? Contact your health care provider if your symptoms get worse or last longer than 2?3 days. This information is not intended to replace advice given to you by your health care provider. Make sure you discuss any questions you have with your health care provider. Document Revised: 08/23/2021 Document Reviewed: 08/23/2021 Elsevier Patient Education ? 2023 [employer] [facility] 01-30-2025 Hospital Discharg e instructions Patient Education [...] not rub your skin to dry it. Wxof-etf-zrqmzq sitz bath To take a sitz bath with an somg-ytz-bcsznb basin: 1.Follow the director of event marketing's instructions. 2.Fill the basin with warm water. [...] if it cracks, or according to the director of event marketing's instructions. Contact a health care provider if: [...] provider. Document Revised: 09/13/2022 Document Reviewed: 09/13/2022 [employer] Patient Education 2023 [employer]. 01/30/2025 16:14:42 Testicular Self-Exam Testicular Self-Exam A [...] provider. Document Revised: 03/27/2023 Document Reviewed: 03/27/2023 [employer] Patient Education 2023 [employer]. Follow Up Care 01/09/2025 11:34:38 With:PALMA ALCANTARA, Lavon Alcala, URL Address: [facility] [address] [place] [address]- When: Unknown [facility] 01-30-2025 Note Patient Education Obstetrics and [...] not rub your skin to dry it. Joge-jfl-cbemox sitz bath To take a sitz bath with an wnje-dfz-lwvngn basin: 1. Follow the director of event marketing's instructions. 2. Fill the basin with warm [...] if it cracks, or according to the director of event marketing's instructions. Contact a health care provider if: [...] provider. Document Revised: 09/13/2022 Document Reviewed: 09/13/2022 [employer] Patient Education ? 2023 [employer]. Urology Testicular Self-Exam A self-examination of your [...] provider if: ? (more content not included)... [facility] 10-10-2024 Telephone encounter Note Pharmacy used [employer] to request a refill on the medication(s) below: Requested Prescriptions Pending Prescriptions Disp Refills lisinopril (ZESTRIL) 10 mg tablet [Pharmacy Med Name: LISINOPRIL 10 MG TABLET] 90 tablet 3 Sig: TAKE 1 TABLET BY MOUTH EVERY DAY Patient last seen: 09/09/2024 Catarina Ferreira Manager Of Manufacturing II October 10, 2024 4:48 PM [facility] 10-10-2024 Miscellaneous Notes Pharmacy used [employer] to request a refill on the medication(s) below: Requested Prescriptions Pending Prescriptions Disp Refills lisinopril (ZESTRIL) 10 mg tablet [Pharmacy Med Name: LISINOPRIL 10 MG TABLET] 90 tablet 3 Sig: TAKE 1 TABLET BY MOUTH EVERY DAY Patient last seen: 09/09/2024 Catarina Ferreira Manager Of Manufacturing II October 10, 2024 4:48 PM documented in this encounter [facility] 09-09-2024 History of Presen t illness Narrative Images from the original note were not included. [facility] CON[facility] DISEASE [facility]IC [facility] OUTPATIENT VISIT DATE September 09, 2024 OUTPATIENT VISIT TYPE ESTABLISHED PRIMARY CARE PHYSICIAN: Carlos Arceo Sr. [address] [place] [address] CHIEF COMPLAINT: Follow up CONGENITAL CARDIAC HISTORY: [...] Procedure Laterality Date HEART CATHETERIZATION 02/2016 at [facility] HEART SURGERY HX 07/29/2016 s/p sternotomy, TV [...] OF 55%. [place] [address], POOR FUNCTIONAL CAPACITY FOR AGE AND GENDER. [...] which included preparing to see the patient, uiqk-gn-cxen patient care, completing clinical documentation, obtaining and/or reviewing separately obtained history, performing a medically appropriate examination, counseling and educating the patient/family/caregiver, ordering medications, tests, or procedures, communicating with other HCPs (not separately reported), independently interpreting results (not separately reported), and care coordination (not separately reported). Esme Calderon MD Adult Congenital Heart Disease [facility] Desk J2-4 Appointments: [phone] documented in this encounter [facility] 09-09-2024 Note HNO ID: [id number] Author: ESME CALDERON MD Service: ? Author Type: Physician Type: Progress Notes Filed: 09/12/2024 17:08 Note Text: [facility] ADULT CONGENITAL HEART DISEASE CLINIC [facility] OUTPATIENT VISIT DATE September 09, 2024 OUTPATIENT VISIT TYPE ESTABLISHED PRIMARY CARE PHYSICIAN: Carlos Arceo Sr. [address] [place] [address] CHIEF COMPLAINT: Follow up CONGENITAL CARDIAC HISTORY: [...] Procedure Laterality Date HEART CATHETERIZATION 02/2016 at [facility] HEART SURGERY HX 07/29/2016 s/p sternotomy, TV [...] Weakness, Paralysis, Numbnes (more content not included)... [facility] 08-01-2024 Radiology Diagnostic study note [facility] Main [place] [address] [place] [address] CT Scan Report Signed Patient: Allie Funes MR#: [id number] : 1990 Acct:[id number] Age/Sex: 34 / M ADM Date: 5 Loc: ER Room: Type: [facility] ER Attending Dr: Copies to: lAlen Cheung DO~ Ordering Provider: Allen Cheung DO [...] Zachary Castle M.D.08/01/2024 6:05 PM Dictation Location: i-drive-PC-20 Transcribed By: [facility] 08/01/241804 Dictated By: Zachary Castle DO 08/01/241801 Signed By: 08/01/241804 [facility] 07-29-2024 Miscellaneous Notes Is looking for new pcp, his sister recommend you as she sees you. Will you accept? Yes. Not until August LM on VM LM on VM documented in this encounter [facility] 07-29-2024 Telephone encounter Note Is looking for new pcp, his sister recommend you as she sees you. Will you accept? [facility] 07-29-2024 Telephone encounter Note Yes. Not until August [facility] Work Phone: 07-29-2024 Telephone encounter Note LM on VM [facility] 07-29-2024 Telephone encounter Note LM on VM [facility] 06-17-2024 Telephone encounter Note Pt was in [...] him. Pt verbalized understanding. Shakira Zaman RN [facility] 06-17-2024 Miscellaneous Notes Pt was [...] RN June 17, 2024 Patient Contact Number: [phone] Patient last seen within the last year: [...] Yes Erica Maldonado documented in this encounter [facility] 06-17-2024 Telephone encounter Note June 17, 2024 Patient Contact Number: [phone] Patient last seen within the last year: [...] next three business days. Yes Erica Maldonado [facility] 11-01-2023 History of Presen t illness Narrative Images from the original note were not included. [facility] ADULT CON[facility]ITAL [facility] DISEASE [facility]INIC [facility] OUTPATIENT VISIT DATE November 01, 2023 OUTPATIENT VISIT TYPE ESTABLISHED PRIMARY CARE PHYSICIAN: Carlos Arceo Sr. [address] [place] [address] CHIEF COMPLAINT: Follow up CONGENITAL CARDIAC HISTORY: [...] Procedure Laterality Date HEART CATHETERIZATION 02/2016 at [facility] HEART SURGERY HX 07/29/2016 s/p sternotomy, TV [...] OF 55%. [place] [address], POOR FUNCTIONAL CAPACITY FOR AGE AND GENDER. [...] which included preparing to see the patient, zzdl-jh-rpke patient care, completing clinical documentation, obtaining and/or reviewing separately obtained history, performing a medically appropriate examination, counseling and educating the patient/family/caregiver, ordering medications, tests, or procedures, communicating with other HCPs (not separately reported), independently interpreting results (not separately reported), and care coordination (not separately reported). Esme Calderon MD Adult Congenital Heart Disease [facility] [place] Desk J2-4 Appointments: [phone] documented in this encounter [facility] 11-01-2023 Note HNO ID: [id number] Author: ESME CALDERON MD Service: ? Author Type: Physician Type: Progress Notes Filed: 11/05/2023 16:22 Note Text: [facility] [place] [facility] OUTPATIENT VISIT DATE November 01, 2023 OUTPATIENT VISIT TYPE ESTABLISHED PRIMARY CARE PHYSICIAN: Carlos Arceo Sr. [address] [place] [address] CHIEF COMPLAINT: Follow up CONGENITAL CARDIAC HISTORY: [...] Procedure Laterality Date HEART CATHETERIZATION 02/2016 at [facility] HEART SURGERY HX 07/29/2016 s/p sternotomy, TV [...] bilaterally. Neuro: Or (more content not included)... [facility] 10-20-2022 History of Presen t illness Narrative Images from the original note were not included. [facility] [place] [facility] OUTPATIENT VISIT DATE October 20, 2022 OUTPATIENT VISIT TYPE ESTABLISHED PRIMARY CARE PHYSICIAN: Carlos Arceo Sr. [address] [place] [address] CHIEF COMPLAINT: Follow up CONGENITAL CARDIAC HISTORY: [...] Procedure Laterality Date HEART CATHETERIZATION 02/2016 at [facility] HEART SURGERY HX 07/29/2016 s/p sternotomy, TV [...] OF 55%. [place] [address], POOR FUNCTIONAL CAPACITY FOR AGE AND GENDER. [...] which included preparing to see the patient, [id number] patient care, completing clinical documentation, obtaining and/or reviewing separately obtained history, performing a medically appropriate examination, counseling and educating the patient/family/caregiver, ordering medications, tests, or procedures, communicating with other HCPs (not separately reported), independently interpreting results (not separately reported), and care coordination (not separately reported). Esme Calderon MD Adult Congenital Heart Disease [facility] [place] [facility] [place] Desk J2-4 Appointments: [phone] documented in this encounter [facility] 10-20-2022 History of Presen t [...] 2022 10:13 AM documented in this encounter [facility] 07-04-2022 Miscellaneous Notes Spoke to patients mom aware of appointments and let her know reminder has been sent in the mail Erica Maldonado July 04, 2022 10:43 AM documented in this encounter [facility] 04-12-2021 Evaluation note Encounter Date [...] of medication given in office today. 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 documented as of this encounter (statuses as of 07/04/2022) [facility] History of Past illness Narrative* Problem Noted Date Resolved Date Anxiety 07/30/2016 08/01/2016 Congenital anomaly of heart 10/16/200811/2016 Palpitations 05/11/2006 10/16/2008 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 documented as of this encounter (statuses as of 09/05/2022) [facility] History of Past illness Narrative* Problem Noted Date Resolved Date Anxiety 07/30/2016 08/01/2016 Congenital anomaly of heart 10/16/200811/2016 Palpitations 05/11/2006 10/16/2008 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 documented as of this encounter (statuses as of 10/20/2022) [facility] History of Past illness Narrative* Problem Noted Date Resolved Date Anxiety 07/30/2016 08/01/2016 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 Palpitations 05/11/2006 10/16/2008 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 documented as of this encounter (statuses as of 10/21/2022) [facility] History of Past illness Narrative* Problem Noted Date Resolved Date Anxiety 07/30/2016 08/01/2016 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 Palpitations 05/11/2006 10/16/2008 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 documented as of this encounter (statuses as of 10/25/2022) [facility] No data available for this section [facility] evaluation note* Diagnosis S/P tricuspid valve repair- Primary Other postprocedural status documented in this encounter [facility] note* 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 documented in this encounter [facility] note* Diagnosis Cardiomyopathy, unspecified type (HCC) documented in this encounter [facility] note* 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 documented in this encounter [facility] note* Diagnosis Dysplastic tricuspid valve Other specified congenital anomaly of heart Cardiomyopathy, unspecified type (HCC) documented in this encounter [facility] note* 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 tricuspid valve repair Other postprocedural status documented in this encounter [facility] note* 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 tricuspid valve repair Other postprocedural status Primary hypertension Unspecified essential hypertension Obesity, Class I, BMI 30-34.9 Obesity, unspecified documented in this encounter [facility] noteNo assessment information [facility] Work Phone: Evaluation note* Diagnosis Onset Date Resolution Status Contusion of hand, right acu te [facility] Work Phone: Evaluation note* 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 tricuspid valve repair Other postprocedural status Primary hypertension Unspecified essential hypertension documented in this encounter [facility] general Narrative - Reported* Type Description Date Medical History triscupid valve leaks Medical History htn Surgical History appendectomy Surgical History heart valve Hospitalization History see above surg Sessions Other Hospital Discharge instructions Additional Instructions Follow-up with your primary care doctor and 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 provided Return to ED if develop worsening symptoms or [facility] Work Phone: InstructionsNot on filedocumented in this encounter [facility] [employer] note No data available for this section [facility] M[facility] reason for referral (narrative)* Outpatient Procedure (Routine) - Pending Review Specialty Diagnoses / Procedures Referred By Contac t Referred To Contact [facility] Diagnoses S/P tricuspid valve repair Procedures ECHO ECHO TTHRC R-T 2D W/WOM-MODE COMPL SPEC&COLEsme Palmer MD [address] [place] [address] [address] Referral ID Status Reason Start Date Expiration Date Visits Requested Visits Authorized [id number] Pending Review Auto-Generat ed Referral 05/30/2022 05/30/2023 1 1 * Outpatient Procedure (Routine) - Authorized Specialty Diagnoses / Procedures Referred By Contac t Referred To Contact [facility] Diagnoses S/P tricuspid valve repair Procedures ECG COMPLETE ECG ROUTINE ECG W/LEAST 12 LDS W/I&R Esme Calderon MD [address] [place] [address] [address] Referral ID Status Reason Start Date Expiration Date Visits Requested Visits Authorized [id number] Authorized Auto-Generat ed Referral 05/30/2022 05/30/2023 1 1 [facility] for referral (narrative)* Outpatient Procedure (Routine) - Pending Review Specialty Diagnoses / Procedures Referred By Contac t Referred To Contact [facility] Diagnoses Dysplastic tricuspid valve Procedures ECHO ECHO TTHRC R-T 2D W/WOM-MODE COMPL SPEC&Esme Hawk MD [address] [place] [address] [place] [address] [place] [address] Referral ID Status Reason Start Date Expiration Date Visits Requested Visits Authorized [id number] Pending Review Auto-Generat ed Referral 09/05/2022 09/05/2023 1 1 [facility] for referral (narrative)* Outpatient Procedure (Routine) - Pending Review Specialty Diagnoses / Procedures Referred By Contac t Referred To Contact [facility] Diagnoses Dysplastic tricuspid valve Procedures ECG COMPLETE ECG ROUTINE ECG W/LEAST 12 LDS W/I&R Esme Calderon MD [address] [place] [id number] [place] [id number] Referral ID Status Reason Start Date Expiration Date Visits Requested Visits Authorized [id number] Pending Review Auto-Generat ed Referral 10/24/2022 10/24/2023 1 1 * Outpatient Procedure (Routine) - Pending Review Specialty Diagnoses / Procedures Referred By Contac t Referred To Contact [facility] Diagnoses Dysplastic tricuspid valve Procedures ECHO SPECIALIST COMPLEX ADULT CONGENITAL ECHO TTHRC R-T 2D W/WOM-MODE COMPL SPEC&COLR Esme Hernandez MD [address] [place] [id number] [facility] [address] [place] [address] Referral ID Status Reason Start Date Expiration Date Visits Requested Visits Authorized [id number] Pending Review Auto-Generat ed Referral 10/24/2022 10/24/2023 1 1 [facility] for referral (narrative)* Outpatient Procedure (Routine) - Pending Review Specialty Diagnoses / Procedures Referred By Contac t Referred To Contact [facility] Diagnoses Dysplastic tricuspid valve Procedures ECHO SPECIALIST COMPLEX ADULT CONGENITAL ECHO TTHRC R-T 2D W/WOM-MODE COMPL SPEC&COLEsme Palmer MD [address] [place] [address] [address] Referral ID Status Reason Start Date Expiration Date Visits Requested Visits Authorized [id number] Pending Review Auto-Generat ed Referral 11/05/2023 11/04/2024 1 1 * Outpatient Procedure (Routine) - Pending Review Specialty Diagnoses / Procedures Referred By Contac t Referred To Contact [facility] Diagnoses Dysplastic tricuspid valve Procedures ECG COMPLETE ECG ROUTINE ECG W/LEAST 12 LDS W/I&R Esme Calderon MD [address] [place] [address] [address] Referral ID Status Reason Start Date Expiration Date Visits Requested Visits Authorized [id number] Pending Review Auto-Generat ed Referral 11/05/2023 11/04/2024 1 1 * Transition of Care (Routine) - Ref Not Required Specialty Diagnoses / Procedures Referred By Ariela t Referred To Contact [facility] Procedures CARDIOVASCULAR MEDICINE OP [place]LLOW [place] [address] [place] [address] [address] Referral ID Status Reason Start Date Expiration Date Visits Requested Visits Authorized [id number] Ref Not Required PCP Requested Referral 08/06/2024 11/04/2024 1 1 * Outpatient Procedure (Routine) - Closed Specialty Diagnoses / Procedures Referred By Ariela t Referred To Contact [facility] Diagnoses Dysplastic tricuspid valve Procedures ECHO SPECIALIST COMPLEX ADULT CONGENITAL ECHO TTHRC R-T 2D W/WOM-MODE COMPL SPEC&COLR D Esme Calderon MD [address] [place] [address] [place] [address] Referral ID Status Reason Start Date Expiration Date V isits Requested Visits Authorized [id number] Closed Auto-Generate d Referral 11/01/2023 10/31/2024 1 1 [facility] for visit Narrative* Transition of Care (Routine) - Closed Specialty Diagnoses / Procedures Referred By Ariela brown Referred To Contact [facility] [place] Procedures CARDIOVASCULAR MEDICINE OP FOLLOW UP APPT ORDER Esme Calderon MD [address] [place] [address] Phone: tel: fax: [address] [address] Referral ID Status Reason Start Date Expiration Date V isits Requested Visits Authorized [id number] Closed PCP Requested Referral 08/06/2024 11/04/2024 1 1 [facility] Summary Purpose Family History No Family History Records FoundNo Family History Records FoundNo Family History Records Found No data available for this section No data available for this section No [...] WITH [place] [address] [place] [address] Mr Imaging Referral ID Status Reason Start Date Expiration Date V isits Requested Visits Authorized [id number] Closed Auto-Generate d Referral 10/20/2022 11/19/2023 1 1 Specialty Diagnoses / Procedures Referred By Ariela t Referred To Contact [facility] Diagnoses Cardiomyopathy, unspecified type (HCC) Procedures MRI CARDIAC MORPH FUNC WO IVCON CARDIAC MRI MORPHOLOGY & FUNCTION W/O CONTRAST Esme Calderon MD [address] [place] [address] Mr Imaging Referral ID Status Reason Start Date Expiration Date V isits Requested Visits Authorized [id number] Closed Auto-Generate d Referral 10/20/2022 11/19/2023 1 [...] CONTRAST & FURTHER SEQ Esme Calderon MD [address] [place] [address] Mr Imaging Referral ID Status Reason Start Date Expiration Date V isits Requested Visits Authorized [id number] Closed Auto-Generate d Referral 07/01/2022 07/31/2023 1 [...] or prosecute any alcohol or drug abuse patient.[facility] the event this information is protected by the Federal Confidentiality of Alcohol and Drug Abuse Patient Records regulations: The Federal rules restrict any use of the information to criminally investigate or prosecute any alcohol or drug abuse patient.[facility] Center[facility] the event this information is protected by the Federal Confidentiality of Alcohol and Drug Abuse Patient Records regulations: The Federal rules restrict any use of the information to criminally investigate or prosecute any alcohol or drug abuse patient.[facility] CenterIn the event this information is protected by the Federal Confidentiality of Alcohol and Drug Abuse Patient Records regulations: The Federal rules restrict any use of the information to criminally investigate or prosecute any alcohol or drug abuse patient.[facility] CenterIn the event this information is protected by the Federal Confidentiality of Alcohol and Drug Abuse Patient Records regulations: The Federal rules restrict any use of the information to criminally investigate or prosecute any alcohol or drug abuse patient.[facility] CenterIn the event this information is protected by the Federal Confidentiality of Alcohol and Drug Abuse Patient Records regulations: The Federal rules restrict any use of the information to criminally investigate or prosecute any alcohol or drug abuse patient.[facility] CenterIn the event this information is protected by the Federal Confidentiality of Alcohol and Drug Abuse Patient Records regulations: The Federal rules restrict any use of the information to criminally investigate or prosecute any alcohol or drug abuse patient.[facility] CenterIn the event this information is protected by the Federal Confidentiality of Alcohol and Drug Abuse Patient Records regulations: The Federal rules restrict any use of the information to criminally investigate or prosecute any alcohol or drug abuse patient.[facility] CenterIn the event this information is protected by the Federal Confidentiality of Alcohol and Drug Abuse Patient Records regulations: The Federal rules restrict any use of the information to criminally investigate or prosecute any alcohol or drug abuse patient.[facility] CenterIn the event this information is protected by the Federal Confidentiality of Alcohol and Drug Abuse Patient Records regulations: The Federal rules restrict any use of the information to criminally investigate or prosecute any alcohol or drug abuse patient.[facility] CenterIn the event this information is protected by the Federal Confidentiality of Alcohol and Drug Abuse Patient Records regulations: The Federal rules restrict any use of the information to criminally investigate or prosecute any alcohol or drug abuse patient.[facility] Care Teams (unrecognized sec tion [...] Provider Active Sta rt: June 18, 2024 [employer] Relationship Specialty Start Date End Date Carlos Arceo . [address] [place] [address] PCP - General Family Medicine 10/15/20 Esme Calderon MD [address] [place] [address] Primary Staff Physician Cardiology 08/18/21 [employer] Relationship Specialty Start Date End Date Carlos Arceo Sr. [address] [place] [facility] [place] [address] PCP - General Family Medicine 10/15/20 Esme Calderon MD [address] [place] [address] Primary Staff Physician Cardiology 08/18/21 [employer] Account Manager Relationship Specialty Start Date End Date Carlos Arceo Sr. [address] [place] [place] [address] PCP - General Family Medicine 10/15/20 Esme Calderon MD [address] [place] [address] Primary Staff Physician Cardiology 08/18/21 [employer] Account Manager Relationship Specialty Start Date End Date Carlos Arceo Sr. [address] [place] [place] [address] PCP - General Family Medicine 10/15/20 Esme Calderon MD [address] [facility] [place] [address] Primary Staff Physician Cardiology 08/18/21 [employer] Account Manager Relationship Specialty Start Date End Date Carlos Arceo Sr. [address] [place] [place] [address] PCP - General Family Medicine 10/15/20 Esme Calderon MD [address] [place] [address] Primary Staff Physician Cardiology 08/18/21 [employer] Manager Relationship Specialty Start Date End Date Carlos Arceo Sr. [address] [place] [place] [address] PCP - General Family Medicine 10/15/20 Esme Calderon MD [address] [place], [place] [id number] Primary Staff Physician Cardiology 08/18/21 [employer] Account Manager Relationship Specialty Start Date End Date Carlos Arceo . [address] [place] [address] PCP - General Family Medicine 10/15/20 Esme Calderon MD [address] [place] [address] Primary Staff Physician Cardiology 08/18/21 [employer] Relationship Specialty Start Date End Date Carlos Arceo Sr., DO PCP - General Family Medicine 10/15/20 Esme Calderon MD [address] [place] [address] Primary Staff Physician Cardiology 08/18/21 Team Status: [...] Provider Active S tart: December 29, 2023 [employer] Account Manager Relationship Specialty Start Date End Date Carlos Arceo Sr., DO PCP - General Family Medicine 10/15/20 Esme Calderon MD [address] [place] [address] Primary Staff Physician Cardiology 08/18/21 [employer] Relationship Specialty Start Date End Date No Pcp, [place] [address] PCP - General Family Medicine 06/17/18 [employer] Relationship Specialty Start Date End Date Carlos Arceo Sr., DO PCP - General Family Medicine 10/15/20 09/11/24 Esme Calderon MD [address] [place] [address] Primary Staff Physician Cardiology 08/18/21 [employer] Relationship Specialty Start Date End Date Esme Calderon MD [address] [place] [address] Primary Staff Physician Cardiology 08/18/21 (unrecognized sect ion and content) No Status Records FoundNo Status Records FoundNo Status Records FoundNo Status Records Found INFORMATION SOURCE (unrecogn ized section and content) DATE CREATED AUTHOR 06/28/2022 [facility] DATE CREATED AUTHOR AUTHOR'S ORGANIZ ATION 08/14/2024 [facility] DATE CREATED AUTHOR AUTHOR'S ORGANIZ ATION 10/10/2024 [facility] DATE CREATED AUTHOR AUTHOR'S ORGANIZ ATION 04/08/2025 [facility] Goals (unrecognized section and content) Goals [...] BE BASED ON THE PRIMARY CLINICAL RECORDS. [email or web address] provides no warranty or guarantee of the accuracy or completeness of information in this document.
[2025-04-10] MEDS: KETOROLAC TROMETHAMINE 30 MG/ML VIAL IVP (10:53)
[2025-04-10] MEDS: FAMOTIDINE/PF 20 MG/2 ML VIAL IV (10:54)
--- NOTE | 2025-04-10 11:20 | ED.CHESTPAI1 ---
HPI - Chest Pain General Chief Complaint: Chest Pain Stated Complaint: CHEST PRESSURE, L ARM NUMBNESS, R SIDED NECK, ANXI Time Seen by Provider: 04/10/25 09:33 Source: patient Mode of arrival: walk-in Limitations: no limitations History of Present Illness HPI narrative: Patient presented to the ER with a chest pain mostly in the left upper chest associated with the left shoulder movement, also sometimes right-sided neck pain and lower back pain that been going on at least for the last 1 week, the pain sometimes related to certain movement and position Patient have no nausea no vomiting no difficulty breathing he denies also any pressure in his chest at any time and no cough no fever He was already evaluated for all his lower back pain here recently and was found to have muscular pain Related Data Home Medications ?Medication ?Instructions ?Recorded ?Confirmed lisinopril 10 mg tablet 10 mg PO DAILY 01/12/23 06/17/24 omeprazole 20 mg capsule,delayed 20 mg PO DAILY 06/17/24 06/17/24 release Previous Rx's ?Medication ?Instructions ?Recorded orphenadrine citrate 100 mg 100 mg PO DAILY PRN muscle spasm 09/13/24 tablet,extended release #10 tabs ibuprofen 800 mg tablet 800 mg PO TID #6 tabs 04/10/25 Allergies Allergy/AdvReac Type Severity Reaction Status Date / Time diphenhydramine (From Allergy Severe Unknown Verified 06/17/24 20:30 Benadryl) Penicillins Allergy Severe Unknown Verified 06/17/24 20:30 Review of Systems ROS Status of ROS 10 or more systems reviewed and unremarkable except as noted in history and below PFSH PFS Social History Little interest or pleasure in doing things: not at all Feeling down, depressed, or hopeless: not at all Exam Narrative Exam Narrative: Nurses notes and vital signs reviewed and patient is not hypoxic. General: Well-appearing and in no apparent distress. Skin: Warm, dry, no pallor noted. No rash. Head: Normocephalic, atraumatic. Neck: Supple, right paraspinal muscle tenderness Eye: Pupils are equal, round and EOMI. No scleral icterus. Ears, Nose, Mouth, and Throat: TM are clear, no nasal mucosal hypertrophy. Oral mucosa is moist, no posterior oropharynx erythema, uvula is mid-line Cardiovascular: Regular Rate and Rhythm without murmur, gallop or rub. Respiratory: No accessory muscle use or respiratory distress. Lungs are clear to auscultation, no wheezing, rales or rhonchi Chest Wall: Tenderness with palpation of the left shoulder as well as the upper anterior pectoral area Back: No midline thoracic or lumbar vertebral tenderness. No CVA tenderness Musculoskeletal: normal ROM, no calf or popliteal tenderness, no lower extremity edema/swelling GI: Abdomen is soft, non-distended. Normal bowel sounds. No masses appreciated. No tenderness to palpation. No rebound, guarding, or rigidity noted. Neurological: A&O x4. No cranial nerve dysfunction observed. No truncal ataxia. Moves all extremities. Sensation intact. Psychiatric: Cooperative and interactive. Normal mood and affect. Constitutional Vital Signs, click to edit/add: Last Vital Signs Temp 98.9 F 04/10/25 09:26 Pulse 60 04/10/25 11:37 Resp 16 04/10/25 11:37 BP 112/75 04/10/25 11:37 Pulse Ox 100 04/10/25 11:37 O2 Del Method Room Air 04/10/25 11:37 Course Vital Signs Vital signs: Vital Signs Temperature 98.9 F 04/10/25 09:26 Pulse Rate 103 H 04/10/25 09:26 Respiratory Rate 18 04/10/25 09:26 Blood Pressure 171/96 H 04/10/25 09:26 Pulse Oximetry 99 04/10/25 09:26 Oxygen Delivery Method Room Air 04/10/25 09:26 Temperature 98.9 F 04/10/25 09:26 Pulse Rate 60 04/10/25 11:37 Respiratory Rate 16 04/10/25 11:37 Blood Pressure 112/75 04/10/25 11:37 Pulse Oximetry 100 04/10/25 11:37 Oxygen Delivery Method Room Air 04/10/25 11:37 MDM - Chest Pain MDM Narrative Medical decision making narrative: The patient EKG showing sinus rhythm with a heart rate of [address] elevation or depression compared to old EKG Patient presenting with 1 week history of atypical muscular pain that is mostly noncardiac The patient CBC and chemistry as well as troponin and chest x-ray showed no acute pathology His presentation right now is mostly muscular especially that he mentioned himself that he had taken some ibuprofen 800 that helped the pain, but it was noted also that the patient have an anxiety and I did explain to him that he need to speak with his primary care for further evaluation The patient not homicidal or suicidal The patient was feeling better after he was treated with Toradol in the ER discharged home with ibuprofen 800 mg for the next 2 days with food The patient have history of tricuspid valve surgery and he was instructed that he need to follow-up with his customs guard as well The patient is to follow up with primary care physician in next 2-3 days or to return to the emergency department should any of the signs or symptoms worsen or new symptoms develop. The patient agrees with the following Diagnosis and Treatment plan and the patient will be discharged home. Lab Data Labs: Lab Results 04/10/25 Range/Units 09:35 WBC 9.3 (4.0-11.0) 10^3/uL RBC 5.00 (4.70-6.10) 10^6/uL Hgb 15.3 (14.0-18.0) g/dL Hct 43.7 (42.0-54.0) % MCV 87.4 (80.0-94.0) fL MCH 30.6 (25.9-34.0) pg MCHC 35.0 (29.9-35.2) g/dL RDW 11.4 (11.0-15.0) % Plt Count 298 (150-450) 10^3/uL MPV 10.3 (9.5-13.5) fL Neut % (Auto) 63.7 (43.0-75.0) % Lymph % (Auto) 27.4 (20.5-60.0) % [place] % (Auto) 5.0 (1.7-12.0) % Eos % (Auto) 2.5 (0.9-7.0) % Baso % (Auto) 1.1 (0.2-2.0) % Neut # (Auto) 5.9 (1.4-6.5) 10^3/uL Lymph # (Auto) 2.5 (1.2-3.8) 10^3/uL [place] # (Auto) 0.5 (0.3-0.8) 10^3/uL Eos # (Auto) 0.2 (0.0-0.7) 10^3/uL Baso # (Auto) 0.1 (0.0-0.1) 10^3/uL Abs Immat Gran (auto) 0.03 (0.00-0.03) 10^3/uL Imm/Tot Granulo (auto) 0.3 (0.0-0.5) % Sodium 140 (136-145) mmol/L Potassium 4.1 (3.5-5.1) mmol/L Chloride 101 (98-107) mmol/L Carbon Dioxide 26.7 (21.0-32.0) mmol/L Anion Gap 16.4 BUN 14.0 (7.0-18.0) mg/dL Creatinine 0.96 (0.70-1.30) mg/dL Est GFR ( Amer) >60 (>=60 mL/min/1.73m^2) Est GFR (Non-Af Amer) >60 (>=60 mL/min/1.73m^2) BUN/Creatinine Ratio 14.6 Glucose 102 (74-106) mg/dL Calcium 9.6 (8.5-10.1) mg/dL Total Bilirubin 0.8 (0.2-1.0) mg/dL AST 15 (15-37) U/L ALT 28 (16-63) U/L Alkaline Phosphatase 97 (46-116) U/L Troponin I High Sens 4.3 (4.0-76.1) pg/mL Total Protein 8.7 H (6.4-8.2) g/dL Albumin 4.7 (3.4-5.0) g/dL Globulin 4.0 g/dL Albumin/Globulin Ratio 1.2 Discharge Plan Discharge Chief Complaint: Chest Pain Clinical Impression: Atypical chest pain Patient Disposition: Home, Self-Care Time of Disposition Decision: 11:26 Condition: Good Prescriptions / Home Meds: New ibuprofen 800 mg tablet 800 mg PO TID Qty: 6 0RF Rx Instructions: Please take meds with food Discontinued diclofenac sodium 75 mg tablet,delayed release (DR/EC) 75 mg PO BID PRN (Reason: pain) Qty: 14 0RF No Action lisinopril 10 mg tablet 10 mg PO DAILY omeprazole 20 mg capsule,delayed release(DR/EC) 20 mg PO DAILY orphenadrine citrate 100 mg tablet extended release 100 mg PO DAILY PRN (Reason: muscle spasm) Qty: 10 0RF Print Language: [place] Instructions: Noncardiac Chest Pain (ED) Additional Instructions: Please make sure you follow-up with your customs guard The patient is to follow up with primary care physician in next 2-3 days or to return to the emergency department should any of the signs or symptoms worsen or new symptoms develop. The patient agrees with the following Diagnosis and Treatment plan and the patient will be discharged home. Referrals: Physician,Non-Staff, MD [Primary Care Provider] - 1 week Discharge Date/Time: 04/10/25 11:39
== END 2025-04-10 11:39 | disposition home or self-care (01) ==
PROVIDERS: Emergency Provider Emergency Medicine
DX: R07.89 Other chest pain (principal); Z95.2 Presence of prosthetic heart valve
CPT/HCPCS: 36415; 71045; 80053; 84484; 85025; 93005; 96374; 96375; 99285; J1885; J3490

== ENCOUNTER 2025-05-08 21:39 | Emergency (ER) | payer OTHER, SELFPAY ==
[2025-05-08] VITALS (8 sets, daily range): BP systolic 123–166; BP diastolic 71–98; PULSE 65–97; TEMP 36.8; O2SAT 95–99; BMI 30.8
--- NOTE | 2025-05-08 22:04 | XR_ITS ---
The [address] [address] Patient Name: ALLIE TORRE MRN: [id number] date: 1990 Sex: M Assigned Patient Location: ER Current Patient Location: ED.MAIN Accession/Order Number: [id number] Exam Date: 05/08/2025 22:09 Report Date: 05/08/2025 22:39 At the request of: LARON LUIS MD Procedure: XR chest 1V PA CHEST: CLINICAL HISTORY: CP COMPARISON: 04/10/2025 Sternotomy wires. Stable mildly prominent cardiomediastinal silhouette. Lungs are clear. No effusion or pneumothorax. XR/XR chest 1V IMPRESSION: NEGATIVE CHEST. Impression dictated by: Aj Keyes M.D. 05/08/2025 10:39 PM Dictation Location: [place] [address] Electronically authenticated by: [id number] Y Date: 05/08/2025 22:39
--- NOTE | 2025-05-08 22:04 | ECG_ITS ---
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 Measurements Intervals [place] Rate: 65 P: 41 IA: 136 QRS: 130 QRSD: 172 T: 32 QT: 448 QTc: 459 Interpretive Statements 1100 Sinus rhythm 1102 Sinus arrhythmia 2450 Right bundle branch block 2730 Left posterior fascicular block 9150 abnormal ECG Compared to ECG 04/10/2025 09:31:04 No significant changes Electronically Signed On 05-09-2025 7:51:24 EST by REANNA FLORES M.D.
--- NOTE | 2025-05-08 22:07 | ED.GENADUL1 ---
HPI HPI - General Adult General Chief complaint: Chest Pain Stated complaint: CHEST PAIN Time Seen by Provider: 05/08/25 21:59 Source: patient Mode of arrival: walk-in Limitations: no limitations History of Present Illness HPI narrative: 35-year-old male presented to the emergency department for chest pain. Its on the left side of his chest and goes into his left upper arm. It started this afternoon, multiple hours ago. He is worried about his heart. No trauma fever or shortness of breath. No complaints of back pain. 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 Related Data Home Medications ?Medication ?Instructions ?Recorded ?Confirmed lisinopril 10 mg tablet 10 mg PO DAILY 01/12/23 06/17/24 omeprazole 20 mg capsule,delayed 20 mg PO DAILY 06/17/24 06/17/24 release Previous Rx's ?Medication ?Instructions ?Recorded orphenadrine citrate 100 mg 100 mg PO DAILY PRN muscle spasm 09/13/24 tablet,extended release #10 tabs ibuprofen 800 mg tablet 800 mg PO TID #6 tabs 04/10/25 Allergies Allergy/AdvReac Type Severity Reaction Status Date / Time diphenhydramine (From Allergy Severe Unknown Verified 05/08/25 21:49 Benadryl) Penicillins Allergy Severe Unknown Verified 05/08/25 21:49 Opioid HPI Opioid Management Most Recent Opioid Data: Last Pain Scale 8 Today, 21:52 Review of Systems ROS Narrative A ten point review of systems is negative except as noted above. PFSH PFSH Social History Little interest or pleasure in doing things: not at all Feeling down, depressed, or hopeless: not at all Exam Narrative Exam Narrative: Nurses note and vital signs reviewed General:The patient appears well and in no apparent distress.Patient is resting comfortably on cart. Skin:Warm, dry, no pallor noted.There is no rash noted. Head:Normocephalic, atraumatic Eye: Normal conjunctiva, no drainage Ears, Nose, Mouth, and Throat: oral mucosa is moist. Nares patent. Cardiovascular:Regular Rate and Rhythm Respiratory:Patient is in no distress, no accessory muscle use, lungs are clear to auscultation, no wheezing, rales or rhonchi Back:non-tender GI: Soft and nontender Musculoskeletal: The patient has no evidence of calf tenderness, no pitting edema, symmetrical pulses noted bilaterally Neurological:A&O, normal speech Psychiatric:Cooperative Constitutional Vital Signs, click to edit/add: Last Vital Signs Temp 98.2 F 05/08/25 21:50 Pulse 69 05/08/25 22:40 Resp 16 05/08/25 22:40 BP 123/71 05/08/25 22:30 Pulse Ox 96 05/08/25 22:40 O2 Del Method Room Air 05/08/25 21:50 Course Vital Signs Vital signs: Vital Signs Pulse Oximetry 98 05/08/25 21:43 Temperature 98.2 F 05/08/25 21:50 Pulse Rate 69 05/08/25 22:40 Respiratory Rate 16 05/08/25 22:40 Blood Pressure 123/71 05/08/25 22:30 Pulse Oximetry 96 05/08/25 22:40 Oxygen Delivery Method Room Air 05/08/25 21:50 Medical Decision Making MDM Narrative Medical decision making narrative: His workup including troponin is negative. I suspect that a component of his symptoms may be anxiety. He is going to follow-up with his doctor. Treatment diagnosis and follow-up were discussed thoroughly. Differential Diagnosis Differential Diagnosis: DE, chest wall pain, anxiety, pneumothorax Lab Data Lab results reviewed: Yes I reviewed the patient's lab results Labs: Lab Results 05/08/25 Range/Units 22:00 WBC 8.3 (4.0-11.0) 10^3/uL RBC 4.54 L (4.70-6.10) 10^6/uL Hgb 14.0 (14.0-18.0) g/dL Hct 39.9 L (42.0-54.0) % MCV 87.9 (80.0-94.0) fL MCH 30.8 (25.9-34.0) pg MCHC 35.1 (29.9-35.2) g/dL RDW 11.8 (11.0-15.0) % Plt Count 270 (150-450) 10^3/uL MPV 10.2 (9.5-13.5) fL Neut % (Auto) 47.3 (43.0-75.0) % Lymph % (Auto) 42.9 (20.5-60.0) % [place] % (Auto) 5.9 (1.7-12.0) % Eos % (Auto) 2.8 (0.9-7.0) % Baso % (Auto) 1.0 (0.2-2.0) % Neut # (Auto) 3.9 (1.4-6.5) 10^3/uL Lymph # (Auto) 3.5 (1.2-3.8) 10^3/uL [place] # (Auto) 0.5 (0.3-0.8) 10^3/uL Eos # (Auto) 0.2 (0.0-0.7) 10^3/uL Baso # (Auto) 0.1 (0.0-0.1) 10^3/uL Abs Immat Gran (auto) 0.01 (0.00-0.03) 10^3/uL Imm/Tot Granulo (auto) 0.1 (0.0-0.5) % Sodium 139 (136-145) mmol/L Potassium 3.6 (3.5-5.1) mmol/L Chloride 105 (98-107) mmol/L Carbon Dioxide 26.3 (21.0-32.0) mmol/L Anion Gap 11.3 BUN 17.0 (7.0-18.0) mg/dL Creatinine 0.94 (0.70-1.30) mg/dL Est GFR ( Amer) >60 (>=60 mL/min/1.73m^2) Est GFR (Non-Af Amer) >60 (>=60 mL/min/1.73m^2) BUN/Creatinine Ratio 18.1 Glucose 95 (74-106) mg/dL Calcium 9.3 (8.5-10.1) mg/dL Troponin I High Sens 7.8 (4.0-76.1) pg/mL Imaging Data Chest x-ray: Radiologist's impression: ITS Impressions Chest X-Ray 05/08/25 22:04 IMPRESSION: NEGATIVE CHEST. Impression dictated by: Aj Keyes M.D. 05/08/2025 10:39 PM Dictation Location: [place] [address] Electronically authenticated by: [id number] Y Date: 05/08/2025 22:39 ECG Data Attestation: I personally reviewed and interpreted this ECG as follows: (EKG on my interpretation shows sinus rhythm with rate of 65 and a right bundle branch block. No acute findings.) Discharge Plan Discharge Chief Complaint: Chest Pain Clinical Impression: Atypical chest pain Patient Disposition: Home, Self-Care Time of Disposition Decision: 23:00 Condition: Good Mode of Transportation: Private Vehicle Prescriptions / Home Meds: No Action lisinopril 10 mg tablet 10 mg PO DAILY omeprazole 20 mg capsule,delayed release(DR/EC) 20 mg PO DAILY ibuprofen 800 mg tablet 800 mg PO TID Qty: 6 0RF Rx Instructions: Please take meds with food orphenadrine citrate 100 mg tablet extended release 100 mg PO DAILY PRN (Reason: muscle spasm) Qty: 10 0RF Print Language: Kitt[place] Instructions: Noncardiac Chest Pain (ED) Referrals: Physician,Non-Staff, MD [Primary Care Provider] - 1 week
[2025-05-08 22:14] LABS: Hematocrit 39.9 % (42.0-54.0); Hemoglobin 14.0 g/dL (14.0-18.0); Immature Granulocytes Abs Auto 0.01 10^3/uL (0.00-0.03); Immature Granulocytes Pct Auto 0.1 % (0.0-0.5); Lymphocytes Absolute Auto 3.5 10^3/uL (1.2-3.8); Mean Corpuscular HGB Conc 35.1 g/dL (29.9-35.2); Mean Corpuscular Hemoglobin 30.8 pg (25.9-34.0); Mean Corpuscular Volume 87.9 fL (80.0-94.0); Platelet Count 270 10^3/uL (150-450); Red Blood Count 4.54 10^6/uL (4.70-6.10); White Blood Count 8.3 10^3/uL (4.0-11.0)
--- OUTSIDE RECORDS SUMMARY | 2025-05-08 22:15 | XMS_ITS | CCD ---
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 Name Role Phone Mirtha Garza Unavailable Adis Sr.Carlos Primary Care Provider Esme Calderon MD Unavailable [phone], DR FLOWERS Primary Care Unavailable [...] Provider Unava ilable CHILO Ojeda Attending Provider [phone] NO FAMILY, PHYSICIAN Primary Care Provider Unava [...] Unava ilable Allen Cheung DO Emergency Provider Melody Edge Attending Unavailable Melody Edge Attending Unavailable Bijal Robertson Attending Unavailable Lavon WALDROP Attending Unavailable Allergies Allergy ClassificationReported Allergen(s)Allergy TypeDate of OnsetReaction(s) Facility (5 sources)Penicillin GDrug Znxooyj74-21-5780Hgepmvd, Unknown ReactionSt. [facility] (18 sources)diphenhydrAMINE; Translations: [DIPHENHYDRAMINE]Drug Allergy 62-18-8323CktjHenry [facility] (12 sources)Penicillins; Translations: [PENICILLINS]Propensity to adverse cpjauencd81-07-9874XpnryAgrtqhswn Clinic (1 source)PenicillinsDrug allergy (disorder)37-00-7314Dcv [facility] (1 source)Sulfonamides (Antibiotic)Drug allergy (disorder)[facility] (1 source)diphenhydrAMINEDrug Yeuwwwf65-12-8899QmesemsshSt. [facility] Of [facility] (1 source)PenicillinDrug Hjexjqd25-45-9414FmyudvlexSt. [facility] Of [facility] (1 source)diphenhydrAMINEDrug Vyhoitp99-48-3330JzxIyawve Health System (1 source)PenicillinsPropensity to adverse teappnfzh70-32-3772BmikcTlqvaydfr Clinic (3 sources)Penicillin; Translations: [penicillin]Drug AllergyExecutive [facility]rology [facility] (1 source)diphenhydrAMINE; Translations: [Benadryl]Drug AllergyAvita Health [facility] Medications Current Medications MedicationDrug Class(es)DatesSig (Normalized)Sig (Original)aspirin 81 mg chewable tablet (1 source)Platelet Aggregation Inhibitor, Nonsteroidal Anti-inflammatory Drug aspirin 81 mg chewable tablet Chew 81 mg and swallow daily. Activedicyclomine hydrochloride 20 mg oral tablet (2 sources)AnticholinergicStart: 75-36-1996zicn 1 tablet by mouth three times dailyDicyclomine 20 mg tablet Active 20 MG PO Three times daily August 01, 2024 1:00amfamotidine 20 mg oral tablet (10 sources)Histamine-2 Receptor AntagonistStart: 70-70-5203fjdv 1 tablet by mouth every twelve hours as neededfamotidine (PEPCID) 20 mg tablet Take 20 mg by mouth twice daily as needed. 06/14/2022 ActiveComment on above:Take 20 mg by mouth twice daily as needed.lisinopril 10 mg oral tablet (20 sources)Angiotensin Converting Enzyme InhibitorStart: 43-35-5146kxaiwclfbr 10 mg Tab 10 mg = 1 tab(s), Refills(s) 0 Start Date: 01/30/25 Status: Ordered Repeat number: 1Start: 22-11-4291Onntbzsviw Active MG PO December 29, 2023 12:00am Start: 10-06-2020 End: 98-44-9517Vyeffqlqjc 10 mg tablet Active MG PO December 29, 2023 12:00am Lisinopril ActiveComment on above:Take 10 mg by mouth once daily.naproxen sodium 550 mg oral tablet (1 source)Nonsteroidal Anti-inflammatory DrugStart: 53-71-3706jfjz 1 tablet by mouth every twelve hours at mealtime as neededNaproxen Sodium 550 MG 1 tablet with food or milk as needed Orally every 12 hrs for 7 days Mar, Active pantoprazole 40 mg delayed release oral tablet (2 sources)Proton Pump InhibitorStart: 23-56-3397zmnk 1 tablet by mouth once dailyPantoprazole (Protonix) 40 mg tablet,delayed release (DR/EC) Active 40 MG PO Daily August 01, 2024 1:00ampredniSONE 20 mg oral tablet (1 source)Start: 64-00-7731qceg 1 tablet by mouth twice dailyPrednisone 20 mg tablet Active 20 MG PO Twice daily 03 30October 29, 2024 12:00amsucralfate 1000 mg oral tablet (2 sources)Aluminum ComplexStart: 25-93-4064vqpe 1 tablet by mouth every six hoursSucralfate (Carafate) 1 gram tablet Active 1 GM PO Q6H 56 August 01, 2024 1:00am Completed/Discontinued Medications MedicationDrug Class(es)DatesSig (Normalized)Sig (Original)ibuprofen 200 mg oral tablet (7 sources)Nonsteroidal Anti-inflammatory Drug End: 28-24-4954jauh 1 tablet by mouth every six hours as neededibuprofen (MOTRIN) 200 mg tablet Take 200 mg by mouth every 6 hours as needed. 0 11/01/2023 Discontinued (Other)Comment on above:Take 200 mg by mouth every 6 hours as needed.iv contrast (will be provided with radiology test) (7 sources)Start: 07-01-2022 End: 60-84-8382pm contrast (will be provided with radiology test) MRI Cardiac w/Qflow Inject, intravenously, once for 1 dose. No IV access, insert saline lock prior to the beginning of sedation, infusion, injectionof imaging exam. Discontinue saline lock post exam. If Pt has a central line or IVAD, may access for administration according to line specific nursing protocol. Once exam is complete flush line and de-access according to line specific nursing protocol in the MR contrast administration guidelines link 1 Each 0 07/01/2022 11/01/2023 Discontinued (Other)Start: 59-27-7302si contrast (will be provided with radiology test) MRI Cardiac w/Qflow Inject, intravenously, once for 1 dose. No IV access, insert saline lock prior to the beginning of sedation, infusion, injectionof imaging exam. Discontinue saline lock post exam. If Pt has a central line or IVAD, may access for administration according to line specific nursing protocol. Once exam is complete flush line and de-access according to line specific nursing protocol in the MR contrast administration guidelines link 1 Each 0 07/01/2022 ActiveComment on above:MRI Cardiac w/Qflow Inject, intravenously, once for 1 dose. No IV access, insert saline lock prior to the beginning of sedation, infusion, injection of imaging exam. Discontinue saline lock post exam. If Pt has a central line or IVAD, may access for administration according to line specific nursingprotocol. Once exam is complete flush line and de-access according to line specific nursing protocol in the MR contrast administration guidelines linkperflutren lipid microspheres 1.3 mL in NaCl (PF) 0.9% 10 mL injection (DEFINITY) (8 sources)Start: 09-05-2022 End: 57-49-2922ijcnjsgnoe lipid microspheres 1.3 mL in NaCl (PF) 0.9% 10 mL injection (DEFINITY)Start: 09-05-2022 End: 87-04-3321hzufaazlxs lipid microspheres 1.3 mL in NaCl (PF) 0.9% 10 mL injection (DEFINITY)Start: 05-30-2022 End: 74-25-8521ihjaltivzp lipid microspheres 1.3 mL in NaCl (PF) 0.9% 10 mL injection (DEFINITY)Start: 08-20-2021 End: 89-87-1175wmkrwdmdbi lipid microspheres 1.3 mL in NaCl (PF) 0.9% 10 mL injection (DEFINITY)125 ml sodium chloride 9 mg/ml prefilled syringe (8 sources)Start: 08-20-2021 End: 57-42-4001fjunfb chloride 0.9 % (flush) 10 mL (BD POSIFLUSH)traMADol hydrochloride 50 mg oral tablet (10 sources)Opioid AgonistStart: 09-12-2016 End: 27-90-3829hiwn 1 tablet by mouth every twelve hours as neededtraMADol (ULTRAM) 50 mg tablet Take 1 tablet by mouth every 12 hours as needed. 30 tablet 0 09/12/2016 11/01/2023 Discontinued (Other)take 1 tablet by mouth every six hours as needed for paintraMADol (ULTRAM) 50 mg tablet Take 50 mg by mouth every 6 (six) hours as needed for pain. ActivetraMADol HCl ActiveComment on above: Take 1 tablet by mouth every 12 hours as needed. 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]Onset: 04-15-2005 Resolved: 416285-42-7695FcewspmWmxuwwgez hypertension (20 sources)Hypertensive disorder; Translations: [Essential (primary) hypertension]72-18-6366QglyrjjGqabxvsynmq chest pain (19 sources)Chest pain; Translations: [Other chest pain]Onset: 05-07-2020 69-77-3480OqasylwnGfgvo injuries and conditions due to external causes (4 sources)Injury of forearm; Translations: [Unspecified injury of right forearm, initial encounter]09-54-5587UqrqwyqvBjusr male genital disorders (1 source)Pain in testicle; Translations: [Left testicular pain]Onset: 46-83-1714RxrxjmewNowyw male genital disorders (2 sources)Pain of left -33-8038FhacjacjJdugo nutritional; endocrine; and metabolic disorders (5 sources)Obese class I; Translations: [Obesity, unspecified]Onset: 11-05-2023 02-82-3340LjwlyajSuau-; endo-; and myocarditis; cardiomyopathy (except that caused by tuberculosis or sexually transmitted disease) (4 sources)Cardiomyopathy; Translations: [Cardiomyopathy, unspecified]Chronic Substance-related disorders (1 source)Nicotine dependence, cigarettes, uncomplicated; Translations: [NICOTINE DEPEND CIGARETTES UNCOMP]Onset: 64-03-7644PposrymZomjzdtqvps injury; contusion (5 sources)Contusion of right hand; Translations: [Contusion of right hand, initial encounter]98-31-3702ZkkujpngMjeyrabvcitr (11 sources)SUMMARYOnset: 288872-47-9446Kvglwukxpcvn (3 sources)CONTACT W/AND (SUSP) EXPOS COVID-19; Translations: [CONTACT W/AND (SUSP) EXPOS COVID-19]Onset: 07-24-7369Rcdyi infection (1 source)COVID-19; Translations: [COVID-19]Onset: 01-06-2022 Past or Other Problems Problem ClassificationProblemDateDocumented DateEpisodic/Chronic Administrative/social admission (11 sources)Discharge status; Translations: [Encounter for administrative examinations, unspecified]Onset: 809752-41-6958HjiwzndgCibmlbc disorders (4 sources)Anxiety; Translations: [Anxiety disorder, unspecified]Onset: 07-30-2016 Resolved: 425460-69-3042ZzwgmgwJovmcol dysrhythmias (4 sources)Palpitations; Translations: [Palpitations]Onset: 05-11-2006 Resolved: 160892-59-3400CzugtigtSwklpfmx of upper limb (1 source)Displaced fracture of middle phalanx of unspecified finger, initial encounter for closed fracture; Translations: [Fracture of middle phalanx of finger of right hand S62.629A]Onset: 04-12-2021 Resolved: 68-68-4450RxzcfmzcJuony aftercare (1 source)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 (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 therapy; Translations: [OTH CUSTODIAL CURRENT DRUG THERAPY]Onset: 79-84-6350RlzygyciCffgr injuries and conditions due to external causes (1 source)Unspecified injury of right wrist, hand and finger(s), initial encounter; Translations: [Injury of right hand, initial encounter S69.91XA] Onset: 04-12-2021 Resolved: 90-72-6945IyvohxcsXffox injuries and conditions due to external causes (1 source)Unspecified injury of right forearm, initial encounter; Translations: [Unspecified injury of right forearm, initial encounter]Onset: 12-29-2023 EpisodicOther nervous system disorders (11 sources)Acute postoperative pain; Translations: [Other acute postprocedural pain]Onset: 474216-23-5719BpsetxnnIzfodmgi codes; unclassified (15 sources)History of tricuspid valve repair; Translations: [Other specified postprocedural states]Onset: 04-98-3068IrdljrlnGrlpsiwg codes; unclassified (1 source)Other specified postprocedural states; Translations: [OTH SPECIFIED POSTPROCEDURAL STATES]Onset: 26-32-0044LyzecwglZhmntkylctqi (1 source)CONTACT W/AND (SUSP) EXPOS COVID-19; Translations: [CONTACT W/AND (SUSP) EXPOS COVID-19]Onset: 01-04-2022 Results Test NameValueInterpretationReference RangeFacilityAmbulatory Visit Summaryon 51-66-1710Lxidfegwkd Visit SummaryAmbulatory Visit Summary ALLIE FUNES :1990 Visit Date:04/15/2025 Ambulatory Visit Instructions Your Diagnosis Generalized anxiety disorder Mild recurrent major depression BMI 31.0-31.9,adult, Body mass index [BMI] 31.0-31.9, adult Class 1 obesity due to excess calories with body mass index (BMI) of 31.0 to 31.9 in adult Your Care Team Attending Physician - Melody Adamson Primary Care Physician - Melody Adamson This Is Your Medications List lisinopril (lisinopril 10 mg Tab) meloxicam (meloxicam 15 mg Tab) methylPREDNISolone (Medrol 4 mg Tab) Procedures Performed Appendectomy, Heart valve repair, Open heart surgery. Discharge Vitals Temperature (Temporal Artery) 36.2 ???C Heart Rate (Peripheral) 86 Respiratory Rate 18 Blood Pressure 150/88 Height 188.0 cm Height 74 in Weight 109.9 kg Weight 242.288 lb BMI 31.09 What to do next Scheduled Follow-Up Appointments Monday 2:20 PM EST With: Melody Adamson Where: [address] [address]- Medications What How Much When Why Instructions New meloxicam (meloxicam 15 mg Tab) 1 Tablets By Mouth Every day Generalized anxiety disorder Mild recurrent major depression BMI 31.0-31.9,adult Class 1 obesity due to excess calories with body massindex (BMI) of 31.0 to 31.9 in adult Pickup at [facility]/pharmacy #[id number] New methylPREDNISolone (Medrol 4 mg Tab) 1 Packets By Mouth As Directed Generalized anxiety disorder Mild recurrent major depression BMI 31.0-31.9,adult Class 1 obesity due to excess calories with body mass index (BMI) of 31.0 to 31.9 in adult Duration: 6 Days as directed on package labeling Pickupat [facility]/pharmacy #[id number] Unchanged lisinopril (lisinopril 10 mg Tab) 1 Tablets Pharmacy Information [facility]/pharmacy #[id number]: [address], [place] [id number] [phone] Allergies Benadryl penicillin Problems Ongoing - Any problem that you are currently receiving treatment for. Flank pain Generalized anxiety disorder Heart valve disorder Hypertension Left testicular pain Mild recurrent major depression Patient Survey You may receive a survey via text or e-mail asking about your office visit. Please share your experience with us by completing your survey. We appreciate your feedback and thank you for choosing us for your care. Patient Portal You may access all of your results and other medical record information on our secure patient portal. If you are not signed up for this yet, please contact [employer] at [phone] to get signed up today. Language Information Language assistance services are available as needed. [facility] Medicine Office/Clinic Noteon 34-24-5523Nfofpb Medicine Office/Clinic NoteFree Hospital For Women Medicine Office/Clinic Note HPI Staff Pt presents today to establish care. Establish Care: History: Any previous diagnosis: HTN History of seeing any specialist: Urology When was your last doctors visit: a few years ago Last provider: Adis Any recent labs: not in a while @ Acute: Current issues/complaints: lost mom last year, he is hoping to get help with anxiety, he is about to lose his job because of panic attacks ALBERTO- 21 PHQ- 9 History of Present Illness pt presents today to establish care. having issues with worsening anxiety with panic attacks Review of Systems PHQ Score Initial Depression Screen Score: 1 SCORE General: alert, no acute distress ENMT: oral mucosa moist, no pharyngeal erythema or exudate Cardiovascular: regular rate and rhythm, normal peripheral perfusion Respiratory: Lungs CTA, respirations non labored Extremities: no deformity, no trauma Neurological: oriented x 4, LOC appropriate for age, CN II-XII intact, motor strength equal & normal bilaterally, speech normal Physical Exam Vitals & Measurements T: 36.2 ???C(Temporal Artery) HR: 86(Peripheral) RR: 18 BP: 150/88 SpO2: 99% HT: 74 in HT: 188.0 cm WT: 242.288 lb WT: 109.9 kg BMI: 31.09 Assessment/Plan 1. Generalized anxiety disorder (F41.1: Generalized anxiety disorder) pt presents today with worsening anxiety. ALBERTO was 21, pt has struggled with anxiety since losing his mom 1 year ago. He has full blown anxiety attacks causing chest pain and tingling of his left arm.He is struggling with attendance at work due to panic attacks. will start pt on lexapro 5mg. he will return in 4 weeks for follow up and med adjustment if needed. pt will contact in regards to [place] paperwork and employee assistance with counseling. Ordered: escitalopram, 5 mg = 1 tab(s), Oral, Daily, # 30 tab(s), Refills(s) 1, [id number] 188, cm, 04/15/25 13:48:00 EDT, Height/Length Dosing, 109.9, kg, 04/15/25 13:48:00 EDT, Weight Dosing meloxicam, 15 mg = 1 tab(s), Oral, Daily, # 30 tab(s), Refills(s) 0, [id number], 188, cm, 04/15/25 13:48:00 EDT, Height/Length Dosing, 109.9, kg, 04/15/25 13:48:00 EDT, Weight Dosing methylPREDNISolone, = 1 packet(s), Oral, As Directed, as directed on package labeling, X 6 day(s), # 21 tab(s), Refills(s) 0, Pharmacy: [facility] #[id number], 188, cm, 04/15/25 13:48:00 EDT, Height/Length Dosing, 109.9, kg, 04/15/25 13:48:00 EDT, Weight Dosing 2. Mild recurrent major depression (F33.0: Major depressive disorder, recurrent, mild) PQH9 -9 Ordered: escitalopram, 5 mg = 1 tab(s), Oral, Daily, # 30 tab(s), Refills(s) 1, Pharmacy: [facility] #[id number], 188, cm, 04/15/25 13:48:00 EDT, Height/Length Dosing, 109.9, kg, 04/15/25 13:48:00 EDT, Weight Dosing meloxicam, 15 mg = 1 tab(s), Oral, Daily, # 30 tab(s), Refills(s) 0, [id number], 188, cm, 04/15/25 13:48:00 EDT, Height/Length Dosing, 109.9, kg, 04/15/25 13:48:00 EDT, Weight Dosing methylPREDNISolone, = 1 packet(s), Oral, As Directed, as directed on package labeling, X 6 day(s), # 21 tab(s), Refills(s) 0, [id number], 188, cm, 04/15/25 13:48:00 EDT, Height/Length Dosing, 109.9, kg, 04/15/25 13:48:00 EDT, Weight Dosing 3. BMI 31.0-31.9,adult, (Z68.31: Body mass index [BMI] 31.0-31.9, adult)Body mass index [BMI] 31.0-31.9, adult BMI educaiton Ordered: escitalopram, 5 mg = 1 tab(s), Oral, Daily, # 30 tab(s), Refills(s) 1, [id number], 188, cm, 04/15/25 13:48:00 EDT, Height/Length Dosing, 109.9, kg, 04/15/25 13:48:00 EDT, Weight Dosing meloxicam, 15 mg = 1 tab(s), Oral, Daily, # 30 tab(s), Refills(s) 0, [id number], 188, cm, 04/15/25 13:48:00 EDT, Height/Length Dosing, 109.9, kg, 04/15/25 13:48:00 EDT, Weight Dosing methylPREDNISolone, = 1 packet(s), Oral, As Directed, as directed on package labeling, X 6 day(s), # 21 tab(s), Refills(s) 0, [id number], 188, cm, 04/15/25 13:48:00 EDT, Height/Length Dosing, 109.9, kg, 04/15/25 13:48:00 EDT, Weight Dosing 4. Class 1 obesity due to excess calories with body mass index (BMI) of 31.0 to 31.9 in adult (E66.811: Obesity, class 1) see above Ordered: escitalopram, 5 mg = 1 tab(s), Oral, Daily, # 30 tab(s), Refills(s) 1, [id number], 188, cm, 04/15/25 13:48:00 EDT, Height/Length Dosing, 109.9, kg, 04/15/25 13:48:00 EDT, Weight Dosing meloxicam, 15 mg = 1 tab(s), Oral, Daily, # 30 tab(s), Refills(s) 0, [id number], 188, cm, 04/15/25 13:48:00 EDT, Height/Length Dosing, 109.9, kg, 04/15/25 13:48:00 EDT, Weight Dosing methylPREDNISolone, = 1 packet(s), Oral, As Directed, as directed on package labeling, X 6 day(s), # 21 tab(s), Refills(s) 0, [id number], 188, cm, 04/15/25 13:48:00 EDT, Height/Length Dosing, 109.9, kg, 04/15/25 13:48:00 EDT, Weight Dosing Follow-up With When Contact Information Melody Adamson, BENITA, MED In 4 weeks 04/15/[address] [place] [address] (more content not included)...[facility] HospitalComment on above:Result Comment: Electronically Signed By: Melody Adamson\.br\Date and Time Signed: 04/15/25 14:17 EDTProvider Letteron [id number] Letter Provider Letter April 15, [address] [address] : 1990 To Whom It May Concern, Please excuse above patient from work, due to medical Date of Illness: From: _04-15-25 To: _04-15-25 May Return to Work On:04-16-25 Restrictions: _ Comments: _ Sincerely, [place] [address] ZgogxhXwhczdSt. Vincent HospitalProvider Letteron 04-03-2025 Provider LetterProvider Letter April 03, [address] [address] : 1990 To Whom It May Concern, Please excuse above patient from work. Date of Appointment: From: 04/03/2025 To: _ May Return to Work On: 04/04/2025 Restrictions: none Comments: Any questions, please call our office Sincerely, [facility] [address] [place] [address] UrwrsfCchj[address] [facility] CenterU[facility] Office/Clinic Noteon [phone] Office/Clinic NoteUrology Office/Clinic Note Chief Complaint lower back pain [...] He states that the pain on both sidesradiates to the front. Denies any visible blood at any time but states that he has noticed that hisurine has been having a stronger odor to it. Denies any dysuria. His father does have a hx of kidney stones. History of Present Illness I have reviewed and verified the staff HPI to be accurate for this encounter. Portions of this record may have been created with voice recognition artificial intelligence software, specifically [employer], [employer] and or Subtext. Substitutions may have occurred due to the [...] flank pain, inability to urinate -KUB/DAVID at [facility], call w/ results -f/u pending imaging Ordered: US Renal XR Abdomen 1 View Orders: Urnls Dip Stick Auto w/o Microscopy POC 22503 Follow-up With When Contact Information RADHA Robertson APRN, Bijal X, FAM, URL Additional Instructions: pending [...] Protein Urine Dipstick: Negative (04/03/25 13:43:00) Specific [place] Urine Dipstick: >=1.030 (04/03/25 13:43:00) Urine Appearance Urine Dipstick: Clear (04/03/25 13:43:00) Urine Color Urine Dipstick: Yellow (04/03/25 13:43:00) Urobilinogen Urine Dipstick: Normal 0.2-1 EU/dl (04/03/25 13:43:00) pH Urine Dipstick: 5.5 (04/03/25 13:43:00)[facility] Comment on above:Result Comment: Electronically Signed By: RADHA Robertson APRN, [place] X\.br\Date and Time Signed: 04/03/25 14:19 EDTAmbulatory Visit Summaryon 09-49-1688Jaljygwwdw Visit SummaryAmbulatory Visit Summary ALLIE FUNES :1990 Visit Date:01/30/2025 [...] Appointments Follow Up with Lavon WALDROP MD, BRANDO When: Where: [facility] [address] [place] [address]- Medications What How Much When Instructions Unchanged lisinopril (lisinopril 10 mg Tab) 1 Tablets Contact prescribing physician if questions orconcerns Allergies Benadryl penicillin Problems Ongoing - Any [...] not rub your skin to dry it. Xrtl-yda-yehiyo sitz bath To take a sitz bath with an zknw-lkp-suhnuy basin: 1. Follow the reservoir engineering advisor's instructions. 2. Fill the basin with warm [...] if it cracks, or according to the reservoir engineering advisor's instructions. Contact a health care provider if: [...] hemorrhoids or anal fissures, relieve pain after certainsurgeries, or help to relax muscles that are sore or tight. ??? Take 2???4 sitz baths a day, or as many as told by your health care provider. Soak in the water for15???20 minutes. ??? Stop doing sitz baths if your symptoms get worse. This information is not intended to replace advice given to you by your health care provider. Make sure you discuss any questions you have with your health care provider. Document Revised: 09/13/2022 Document Reviewed: 09/13/2022 ElseUpp[employer] Patient Education ??? 2023 Component[employer]. Testicular Self-Exam A self-examination of your (more content not included)...[facility] HospitalProvider Letteron [phone] LetterProvider Letter January 30, [address] [place] [id number] : 1990 To Whom It May Concern, Please excuse above patient from work. Date of Illness: From: 01/30/25 To: 01/30/25 May Return to Work On: 01/31/25 Restrictions: None Comments: Patient had an appointment with [facility] 01/30/25. 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 SHIMS: 15 IPSS: pt [...] [facility] [address], [place] [address]- Additional Instructions: sched scrotal US, PRN Patient [...] Protein Urine Dipstick: Negative (01/30/25 15:46:00) Specific [place] Urine Dipstick: >=1.030 (01/30/25 15:46:00) Urine Appearance Urine Dipstick: Clear (01/30/25 15:46:00) Urine Color Urine Dipstick: Light yellow (01/30/25 15:46:00) Urobilinogen Urine Dipstick: Normal 0.2-1 EU/dl (01/30/25 15:46:00) pH Urine Dipstick: 5.5 (01/30/25 15:46:00)[facility] Comment on above:Result Comment: Electronically Signed By: Lavon WALDROP MD\.br\Date and Time Signed: 01/30/25 16:17 EDT\.br\Electronically Co-Signed By: Adelina Castanon.br\Date and Time Co-Signed: 01/30/25 16:15 EDTCBC panel Auto (Bld)on 31-82-2667Yllpyuhwsay distribution width (RBC) [Ratio]11.7 %Normal 11.5-15.0[facility] on above:Order Comment: Specimen Type: BLOOD SPECIMEN Ordering Facility: [facility] Address: [address] [place], [place] [address]Performed By: #### 85124-5 #### [facility] CLIA [id number] [address] [place] [address] [place] STATES OF AMERICAHematocrit (Bld) [Volume fraction]43.7 %Ysxtvv72.0-51.0[facility] on above:Order Comment: Specimen Type: BLOOD SPECIMEN Ordering Facility: [facility] Address: [address] [place], [place] [address]Performed By: #### 49006-9 #### [facility] CLIA [id number] [address] [place] [address] [place] AMERICAHemoglobin (Bld) [Mass/Vol] 14.9 g/zJCvhffi36.0-17.0[facility] on above:Order Comment: Specimen Type: BLOOD SPECIMEN Ordering Facility: [facility] Address: [address] [place], [place] [address]Performed By: #### 18380-4 #### [facility] CLIA [id number] [address] [place] [address] (RBC) [Entitic mass]30.3 niSuochs48.0-34.0[facility] on above:Order Comment: Specimen Type: BLOOD SPECIMEN Ordering Facility: [facility] Address: [address] [place], [place] [address]Performed By: #### 50195-6 #### [facility] CLIA [id number] [address] [place], [place] [address]HC (RBC) [Mass/Vol]34.1 g/lUEjbdlw90.5-36.0[facility] on above:Order Comment: Specimen Type: BLOOD SPECIMEN Ordering Facility: [facility] Address: [address] [place], [place] [address]Performed By: #### 50626-9 #### [facility] CLIA [id number] [address] [place] [address] (RBC) [Entitic vol]89.0 xPJlcnve96.0-100.0[facility] on above:Order Comment: Specimen Type: BLOOD SPECIMEN Ordering Facility: [facility] Address: [address] [place], [place] [address]Performed By: #### 82963-5 #### [facility] CLIA [id number] [address] [place] [address] RBC (Bld) [#/Vol] 10*3/uLNormal<0.01[facility] on above:Order Comment: Specimen Type: BLOOD SPECIMEN Ordering Facility: [facility] Address: [address] [place], [place] [address]Performed By: #### 63793-4 #### [facility] CLIA [id number] [address] [place] [address] [place] OF AMERICAPlatelet mean volume (Bld) [Entitic vol]10.2 fLNormal9.0-12.7CMarietta [facility]opathic [facility] on above: Order Comment: Specimen Type: BLOOD SPECIMEN Ordering Facility: [facility] Address: [address] [place], [place] [address]Performed By: #### 84463-3 #### [facility] CLIA [id number] [address] [place] [address] [place] AMERICAPlatelets (Bld) [#/Vol]282 10*3/sXSltmmf313-611IvnmmxaamSelect Medical [facility]ty [facility] on above:Order Comment: Specimen Type: BLOOD SPECIMEN Ordering Facility: [facility] Address: [address] [place], [place] [address]Performed By: #### 79607-5 #### [facility] CLIA [id number] [address] [place] [address] [place] AMERICARBC (Bld) [#/Vol]4.91 10*6/uLNormal4.20-6.00[facility] on above:Order Comment: Specimen Type: BLOOD SPECIMEN Ordering Facility: [facility] Address: [address] [place], [place] [address]Performed By: #### 37795-3 #### [facility] CLIA [id number] [address] [place] [address] [place] OF AMERICAWBC (Bld) [#/Vol]8.31 10*3/uLNormal3.70-11.00[facility] on above:Order Comment: Specimen Type: BLOOD SPECIMEN Ordering Facility: [facility] Address: [address] [place], [place] [address]Performed By: #### 76449-8 #### [facility] CLIA [id number] [address] STATES OF [facility] [address]OWN HOSPITALCNOVon 31-68-9241UHFOYkciwi Visit (CARCMN) ALLIE FUNES ([id number]) 1990 M Date Time Provider Department 09/09/24 3:45 PM ESME CALDERON During your visit today, we recorded the following information about you: Pulse Blood pressure Weight 97/minute 143/95 106.3 kg Esme Caldreon MD 09/12/2024 5:08 PM [facility] [place] ADULT CONGENITAL [facility] OUTPATIENT VISIT DATE September 09, 2024 OUTPATIENT VISIT TYPE ESTABLISHED PRIMARY CARE PHYSICIAN: Carlos Arceo Sr. [address] [place] [address] CHIEF COMPLAINT: Follow up CONGENITAL CARDIAC HISTORY: [...] Procedure Laterality Date HEART CATHETERIZATION 02/2016 at [facility] HEART SURGERY HX 07/29/2016 s/p sternotomy, TV [...] Wheezing, Apnea GASTROINTESTINAL: N (more content not included)...NormalOhio State University Wexner Medical Centerprehensive metabolic 2000 panelon 84-15-7815Emrcjyr [Mass/Vol]4.8 g/dLNormal3.9-4.9CMarietta Osteopathic Clinic on above:Order Comment: Specimen Type: BLOOD SPECIMEN Ordering Facility: [facility] Address: [address] [place], [place] [address]Performed By: #### 83996-7, 91361-9 #### [facility] CLIA [id number] [address] [place], [place] [address] [place] OF AMERICAALP [Catalytic activity/Vol] 86 U/ORphkqi06-820GjpqmlexqSelect [facility] on above:Order Comment: Specimen Type: BLOOD SPECIMEN Ordering Facility: [facility] Address: [address] [place], [place] [address]Performed By: #### 35633-9, 27993-7 #### [facility] CLIA [id number] [address] [place] [address] [place] AMERICAALT [Catalytic activity/Vol] 15 U/EBpvtbr30-60UevhhjtwsSelect Medical [facility]ty [facility] on above:Order Comment: Specimen Type: BLOOD SPECIMEN Ordering Facility: [facility] Address: [address] [place], [place] [address]Performed By: #### 78276-2, 19021-0 #### [facility] CLIA [id number] [address] [place] [address] [place] AMERICAAnion gap [Moles/Vol]10 mmol/LNormal8-15[facility] on above:Order Comment: Specimen Type: BLOOD SPECIMEN Ordering Facility: [facility] Address: [address] [place], [place] [address]Performed By: #### 52097-6, 79961-8 #### [facility] CLIA [id number] [address] [place] [address] [place] AMERICAAST [Catalytic activity/Vol] 11 U/FUbt81-31QiytlijkgSelect Medical Specialty [facility] on above:Order Comment: Specimen Type: BLOOD SPECIMEN Ordering Facility: [facility] Address: [address] [place], [place] [address]Performed By: #### 94116-1, 52766-5 #### [facility] CLIA [id number] [address] [place] [address] [place] AMERICABilirubin [Mass/Vol]0.4 mg/dLNormal0.2-1.3CMarietta Osteopathic Clinic on above:Order Comment: Specimen Type: BLOOD SPECIMEN Ordering Facility: [facility] Address: [address] [place], [place] [address]Performed By: #### 76485-9, 82098-1 #### [facility] CLIA [id number] [address] [place] [address] [place] AMERICACalcium [Mass/Vol]9.6 mg/dL Normal8.5-10.2CMarietta Osteopathic Clinic on above:Order Comment: Specimen Type: BLOOD SPECIMEN Ordering Facility: [facility] Address: [address] [place], [place] [address]Performed By: #### 03614-7, 39866-1 #### [facility] CLIA [id number] [address] [place], [place] [address] [place] AMERICAChloride [Moles/Vol]105 mmol/WSalepl44-031KxnieddkuSelect Medical [facility]ty [facility] on above:Order Comment: Specimen Type: BLOOD SPECIMEN Ordering Facility: [facility] Address: [address] [place], [place] [address]Performed By: #### 13945-2, 84466-2 #### [facility] CLIA [id number] [address] [place] [address] [place] AMERICACO2 [Moles/Vol]25 mmol/L Zpdwjz30-64ZkiravkieSelect Medical Specialty Hospital - [facility] on above:Order Comment: Specimen Type: BLOOD SPECIMEN Ordering Facility: [facility] Address: [address] [place], [place] [address]Performed By: #### 69236-9, 31064-0 #### [facility] CLIA [id number] [address] [place] [address] [place] AMERICACreatinine [Mass/Vol]0.95 mg/dLNormal0.73-1.22[facility] on above:Order Comment: Specimen Type: BLOOD SPECIMEN Ordering Facility: [facility] Address: [address] [place], [place] [address]Performed By: #### 60733-4, 67175-0 #### [facility] CLIA [id number] [address] [place] [address] [place] AMERICACreatinine and Glomerular filtration rate.predicted panel (S/P/Bld)108 mL/min/1.73m???Normal>=60[facility] on above:Order Comment: Specimen Type: BLOOD SPECIMEN Ordering Facility: [facility] Address: [address] [place], [place] [address]Result Comment: Estimated Glomerular Filtration Rate (eGFR) is calculated using the 2020 CKD-EPI cre atinine equation. This equation utilizes serum creatinine, sex, and age as parameters. The creatinine assay has traceable calibration to isotope dilution- mass spectrometry. Refer to KDIGO guidelines for clinical interpretation. In patients with unstable renal function, e.g. those with acute kidney injury, the eGFR may not accurately reflect actual GFR.Performed By: #### 91802-5, 13544-3 #### [facility] CLIA [id number] [address] [place] [address] [place] AMERICAGlucose [Mass/Vol]93 mg/dL Idffte14-03WzjzfijbpSelect Medical Specialty Hospital [facility] on above:Order Comment: Specimen Type: BLOOD SPECIMEN Ordering Facility: [facility] Address: [address] [place], [place] [address]Result Comment: The [place] Diabetes Association (ADA) provides guidance for cutoff [...] Standards of Medical Care in Diabetes 2016, [place] Diabetes Association. Diabetes Care. 2016.39(Suppl 1).Performed By: #### 53314-1, 43594-7 #### [facility] CLIA [id number] [address] [place] [address] [place] AMERICAPotassium [Moles/Vol]4.0 mmol/LNormal3.7-5.1CMarietta [facility]opathic Clinic on above:Order Comment: Specimen Type: BLOOD SPECIMEN Ordering Facility: [facility] Address: [address] [place], [place] [address]Performed By: #### 49700-7, 52995-7 #### [facility] CLIA [id number] [address] [place] [address] [place] AMERICAProtein [Mass/Vol]7.4 g/dL Normal6.3-8.0[facility] on above:Order Comment: Specimen Type: BLOOD SPECIMEN Ordering Facility: [facility] Address: [address] [place], [place] [address]Performed By: #### 12982-8, 44458-5 #### [facility] CLIA [id number] [address] [place] [address] [place] AMERICASodium [Moles/Vol]140 mmol/L Iowifw891-262TrrgfndzuSelect Medical Specialty Hospital [facility] on above:Order Comment: Specimen Type: BLOOD SPECIMEN Ordering Facility: [facility] Address: [address] [place], [place] [address]Performed By: #### 38656-8, 04658-8 #### [facility] CLIA [id number] [address] [place] [address] [place] AMERICAUrea nitrogen [Mass/Vol]11 mg/dLNormal9-24[facility] on above:Order Comment: Specimen Type: BLOOD SPECIMEN Ordering Facility: [facility] Address: [address] [place], [place] [address]Performed By: #### 74018-1, 31304-4 #### [facility] CLIA [id number] [address] [place] [address] [place] AMERICAECG COMPLETEon 79-48-1758ZVS COMPLETEVentricular Rate : 70 BPM Atrial Rate : 70 BPM P-R Interval : 132 ms QRS Duration : 168 ms Q-T Interval : 426 ms QTC Calculation(Bazett) : 460 ms Calculated P Alexander : 36 degrees Calculated R Alexander : 69 degrees Calculated T Alexander : 23 degrees NORMAL SINUS RHYTHM COMPLETE RIGHT BUNDLE BRANCH BLOCK ABNORMAL ECG Confirmed by GEOVANNA MARTINES MD ([id number]) on 10/08/2024 8:14:00 PM NAME : ALLIE FUNES PID : [id number] : 1990 Gender : Male Race : ORD : [id number] Procedure Date : Sep 09 2024 14:07:29 Edit Date : Oct 08 2024 20:14:03 Diagnosis: NORMAL SINUS RHYTHM COMPLETE RIGHT BUNDLE BRANCH BLOCK ABNORMAL ECG Confirmed by GEOVANNA MARTINES MD ([id number]) on 10/08/2024 8:14:00 PM Test Reason : Location : [address] [place] [address] Overread By : GEOVANNA MARTINES MD Edited By : GEOVANNA MARTINES MD Referred By : ESME CALDERON Acquired by : [facility]INReg[facility] SPECIALIST COMPLEX ADULT CONGENITALon 44-24-2519VVJI SPECIALIST COMPLEX ADULT CONGENITAL Echocardiography Report: [facility] MARIAH-2 Date of service: 09/09/2024 1:34:55 PM DOOR MAN Ordering physician: ESME CALDERON Indication: Ebstein anomaly [...] RV systolic tissue Doppler velocity is 8.3 cm/s.Tricuspid annular displacement is 1.3 cm. Estimated right [...] exam performed on 11/01/2023. Similar findings. Final [facility] : [id number] See Link below for ImageNormalCUniversity Hospitals St. John Medical CenterLipid 1996 panelon 28-71-0084Xiphrlbjkmg [Mass/Vol]142 mg/dLNormal<200[facility] Comment on above:Order Comment: Specimen Type: BLOOD SPECIMEN Ordering Facility: [facility] Address: [address] [place], [place] [address]Result Comment: <200 mg/dL, Desirable 200-239 mg/dL, Borderline high >239 mg/dL, HighPerformed By: #### 81364-7, 40837-6 #### [facility] CLIA [id number] [address] [place] [address] [place] AMERICACholesterol in HDL [Mass/Vol]33 mg/dLLow>39[facility] on above:Order Comment: Specimen Type: BLOOD SPECIMEN Ordering Facility: [facility] Address: [address] [place] [address]Dvtnmy Comment: 40-59 mg/dL, Acceptable >59 mg/dL, High: Negative risk factor for coronary heart disease <40 mg/dL, Low: Positive risk factor for coronary heart diseasePerformed By: #### 04459-3, 26799-4 #### [facility] CLIA [id number] [address] [place] [address] [place] AMERICACholesterol in LDL [Mass/Vol]97 mg/dLNormal<100[facility] on above:Order Comment: Specimen Type: BLOOD SPECIMEN Ordering Facility: [facility] Address: [address] [place], [place] [address]Result Comment: <100 mg/dL, Optimal 100-129 mg/dL, Near optimal/above optimal 130-159 mg/dL, Borderline high 160-189 mg/dL, High >189 mg/dL, Very high Secondary prevention optimal LDL Cholesterol levels are recommended to be < 70 mg/dLPerformed By: #### 01279-4, 06785-8 #### [facility] CLIA [id number] [address] [place] [address] [place] AMERICACholesterol in LDL/Cholesterol in HDL [Mass ratio]2.94 {ratio}High<2.54[facility] on above:Order Comment: Specimen Type: BLOOD SPECIMEN Ordering Facility: [facility] Address: [address] [place], [place] [address]Result Comment: Reference: 1. National Cholesterol Education Program ATP III Guideline At-A-Glance Quick Desk Reference: National Heart, Lung, and Blood [place]. National Institutes of Health. 2001: NIH Publication No. 01-3305. 2. An International Atherosclerosis Society position paper: global recommendations for the management of dyslipidemia: executive summary, Atherosclerosis. 2014: 232(2):410-413.Performed By: #### 64543-4, 18285-3 #### [facility] CLIA [id number] [address] [place], [place] [address] [place] AMERICACholesterol in VLDL [Mass/Vol]12 mg/dLNormal<30[facility] on above:Order Comment: Specimen Type: BLOOD SPECIMEN Ordering Facility: [facility] Address: [address] [place], [place] [address]Performed By: #### 08753-4, 56648-5 #### [facility] CLIA [id number] [address] [place] [address] [place] AMERICACholesterol non HDL [Mass/Vol]109 mg/dLNormal<130[facility] on above:Order Comment: Specimen Type: BLOOD SPECIMEN Ordering Facility: [facility] Address: [address] [place], [place] [address]Result Comment: <130 mg/dL, Optimal 130-159 mg/dL, Near optimal/above optimal 160-189 mg/dL, Borderline high 190-219 mg/dL, High >219 mg/dL, Very high Secondary prevention optimal non HDL Cholesterol levels are recommended to be <100 mg/dLPerformed By: #### 90329-4, 94531-9 #### [facility] CLIA [id number] [address] [place] [address] [place] Cholesterol.total/Cholesterol in HDL [Mass ratio]4.30 {ratio}Normal<5.10 [facility] on above:Order Comment: Specimen Type: BLOOD SPECIMEN Ordering Facility: [facility] Address: [address] [place], [place] [address]Performed By: #### 00454-3, 15089-6 #### [facility] CLIA [id number] [address] [place] [address] [place] AMERICAFASTING TIME12 hrsNormal [facility] on above:Order Comment: Specimen Type: BLOOD SPECIMEN Ordering Facility: [facility] Address: [address] [place], [place] [address]Performed By: #### 04177-2, 68793-4 #### [facility] CLIA [id number] [address] [place] [address] STATES OF AMERICATriglyceride [Mass/Vol]59 mg/dLNormal<150[facility] on above:Order Comment: Specimen Type: BLOOD SPECIMEN Ordering Facility: [facility] Address: [address] [place], [place] [address]Result Comment: <150 mg/dL, Normal 150-199 mg/dL, Borderline high 200-499 mg/dL, High >499 mg/dL, Very highPerformed By: #### 49338-2, 14176-2 #### [facility] CLIA [id number] [address] [place] [address] [place] AMERICAAlanine aminotransferase [Enzymatic activity/volume] in Serum or PlasmaOrdered By: Allen Cheung on 18-26-7325VWH [Catalytic activity/Vol]Alanine aminotransferase [Enzymatic activity/volume] in Serum or Plasma7-52[facility]. [facility] God HospitalAlbumin [Mass/volume] in Serum or Plasma by Bromocresol green (BCG) dye binding metho Ordered By: Allen Cheung on 88-20-9665Fvcshan BCG dye [Mass/Vol]Albumin [Mass/volume] in Serum or Plasma by Bromocresol green (BCG) dye binding metho 3.5-5.7FSCCI Hospital LimaAlkaline phosphatase [Enzymatic activity/volume] in Serum or PlasmaOrdered By: Allen Cheung on 74-22-0129SDE [Catalytic activity/Vol]Alkaline phosphatase [Enzymatic activity/volume] in Serum or Erxxwp04-038ZddlpmcvnSt. John Of God HospitalAspartate aminotransferase [Enzymatic activity/volume] in Serum or PlasmaOrdered By: Allen Cheung on 03-59-6048OBU [Catalytic activity/Vol]Aspartate aminotransferase [Enzymatic activity/volume] in Serum or Rteeye37-11MxjmgxzwdSt. John Of God HospitalB-Type Natriuretic Peptideon 43-77-0778Yaxhhdwomau peptide B (Bld) [Mass/Vol]23.0 pg/mL Normal5-100The [facility] Physician GroupComment on above:Result Comment: PERFORMED BY: [place] [address] PATHOLOGIST ELECTRONIC ORGAN TECHNICIAN FAREED DAVALOS M.D.Performed By: #### CK, HS TROP, PTT, BNP, PT, BMP, HEPATIC, CBC #### [facility] [address] [place] [address] USABasic Metabolic Panelon 15-31-8005Llksv gap [Moles/Vol] 14.3 mmol/LNormal6.0-15.0The [facility] Physician GroupComment on above:Performed By: #### CK, HS TROP, PTT, BNP, PT, BMP, HEPATIC, CBC #### [address] [address] USACalcium [Mass/Vol]9.9 mg/dLNormal8.6-10.3The [facility] Physician GroupComment on above:Result Comment: PERFORMED BY: [place] [address] PATHOLOGIST ELECTRONIC ORGAN TECHNICIAN FAREED DAVALOS M.D.Performed By: #### CK, HS TROP, PTT, BNP, PT, BMP, HEPATIC, CBC #### [place] [address] USAChloride [Moles/Vol]104 mmol/YFkpcly01-648Tri [facility] Physician GroupComment on above:Performed By: #### CK, HS TROP, PTT, BNP, PT, BMP, HEPATIC, CBC #### [place] [address] USACO2 [Moles/Vol]22.0 mmol/DJrgtpt87.0-31.0The [facility] Physician GroupComment on above:Performed By: #### CK, HS TROP, PTT, BNP, PT, BMP, HEPATIC, CBC #### [place] [address] USACreatinine [Mass/Vol]1.01 mg/dLNormal0.70-1.30The [facility] Physician GroupComment on above:Performed By: #### CK, HS TROP, PTT, BNP, PT, BMP, HEPATIC, CBC #### [place] [address] USAGFR/1.73 sq M.predicted MDRD (S/P/Bld) [Vol rate/Area] mL/min/{1.73_m2}NormalThe [facility] Physician GroupComment on above:Performed By: #### CK, HS TROP, PTT, BNP, PT, BMP, HEPATIC, CBC #### [place] [address] USAGlucose [Mass/Vol]99 mg/kWNoeczs35-297Uid [facility] Physician GroupComment on above:Result Comment: Random Glucose Reference Range is dependent on time and content of last meal. Glucose of more than 200 mg/dL in a nonstressed, ambulatory subject supports the diagnosis of Diabetes Mellitus. ADA recommended reference rangePerformed By: #### CK, HS TROP, PTT, BNP, PT, BMP, HEPATIC, CBC #### [facility] [address] [place] [address] USAPotassium [Moles/Vol]3.3 mmol/LLow3.5-5.1The [facility] Physician GroupComment on above:Performed By: #### CK, HS TROP, PTT, BNP, PT, BMP, HEPATIC, CBC #### [facility] [address] [place] [address] USASodium [Moles/Vol]137 mmol/UBbuboq200-371Kvh [facility] Physician GroupComment on above:Performed By: #### CK, HS TROP, PTT, BNP, PT, BMP, HEPATIC, CBC #### [facility] [address] [place] [address] USAUrea nitrogen [Mass/Vol]15 mg/dLNormal7-25The [facility] Physician GroupComment on above:Performed By: #### CK, HS TROP, PTT, BNP, PT, BMP, HEPATIC, CBC #### [facility] [address] [place] [address] USABasophils Auto (Bld) [#/Vol]Ordered By: Allen Cheung on 41-11-5813Gqqtgrrrh (Bld) [#/Vol]Automated basophil count0.0-0.2FSCCI Hospital LimaBasophils/100 WBC Auto (Bld)Ordered By: Allen Cheung on 59-24-5768Iccrseiom/100 WBC (Bld)Automated basophil %.[facility] HospitalBilirubin.direct [Mass/volume] in Serum or PlasmaOrdered By: Allen Cheung on 77-64-4097Lisfhetum.direct [Mass/Vol]Bilirubin.direct [Mass/volume] in Serum or PlasmaHigh0.03-0.18FSCCI Hospital LimaBilirubin.total [Mass/volume] in Serum or PlasmaOrdered By: Allen Cheung on 08-02-6656Wjphbqpxi [Mass/Vol]Bilirubin.total [Mass/volume] in Serum or PlasmaHigh0.3-1.0Firelands Regional Medical CenterComment on above:Samples from patients who have taken Naproxen have shown spurious elevation in Total Bilirubin levels. A metabolite of Naproxen, O-desmethylnaproxen, has been shown to interfere with the Jendrkarmaik-Groshasta method for measuring Total Bilirubin.BioFire Not Detectedon 22-79-1493AroSffy Not DetectedNot detectedNormalNot DetecteThe [facility] Physician GroupComment on above:Result Comment: This is a duplicate RP2.1 COVID (PCR) result to be used for statistical tracking purpose only. PERFORMED BY: [place] [address] PATHOLOGIST ELECTRONIC ORGAN TECHNICIAN FAREED DAVALOS M.D.Performed By: #### BIOFIRECOVNOTDE, RESP PANEL UPP. ####[facility] [address] [place] [address] USACOVID- 19 Detected/Not DetectedOrdered By: Allen Cheung on 55-21-3100KDRB-CoV-2 (COVID- 19) RNA HERBERTH+non-probe Ql (Nph)Not detectedNot [facility] HospitalComment on above:This is a duplicate RP2.1 COVID (PCR) result to be used for statistical tracking purpose only.CT angio chest PE protocolon 84-36-5682UR angio chest PE protocolAD[facility] Main [place] [address] [place] [address] CT Scan Report Signed Patient: Allie Funes MR#: [id number] : 1990 Acct:[id number] Age/Sex: 34 / M ADM Date: 08/01/24 Loc: ER Room: Type: [facility] ER Attending Dr: Copies to: Allen [...] Zachary Castle M.D.08/01/2024 6:05 PM Dictation Location: [place] [address] Transcribed By: [facility] 08/01/241804 Dictated By: Zachary Castle DO 08/01/241801 Signed By: 08/01/24 180NoSelect Specialty Hospital [facility] Physician GroupCalcium [Mass/volume] in Serum or PlasmaOrdered By: Allen Cheung on 90-00-1914Vplraxy [Mass/Vol]Calcium [Mass/volume] in Serum or Plasma8.6-10.3FSCCI Hospital LimaCarbon dioxide, total [Moles/volume] in Serum or PlasmaOrdered By: Allen Cheung on 05-76-6825LZ3 [Moles/Vol]Carbon dioxide, total [Moles/volume] in Serum or Plasma 21.0-31.0St. [facility] God HospitalChloride [Moles/volume] in Serum or PlasmaOrdered By: Allen Cheung on 14-00-5537Ewmlloio [Moles/Vol]Chloride [Moles/volume] in Serum or Kxxxsh30-170XikemxhunSt. John Of God HospitalComplete Blood Count Auto Diffon 35-84-5914Hwthkwbdt (Bld) [#/Vol]0.1 10*3/uLNormal 0.0-0.2The [facility] Physician GroupComment on above:Result Comment: PERFORMED BY: [address] [place] [address] PATHOLOGIST ELECTRONIC ORGAN TECHNICIAN FAREED DAVALOS M.D.Performed By: #### CK, HS TROP, PTT, BNP, PT, BMP, HEPATIC, CBC #### [place] [address] USABasophils/100 WBC (Bld)1.4 %Normal.The [facility] Physician GroupComment on above:Performed By: #### CK, HS TROP, PTT, BNP, PT, BMP, HEPATIC, CBC #### [place] [address] USAEosinophils (Bld) [#/Vol]0.3 10*3/uLNormal0.0-0.45The [facility] Physician GroupComment on above:Performed By: #### CK, HS TROP, PTT, BNP, PT, BMP, HEPATIC, CBC #### [place] [address] USAEosinophils/100 WBC (Bld)3.0 %Normal.The [facility] Physician GroupComment on above:Performed By: #### CK, HS TROP, PTT, BNP, PT, BMP, HEPATIC, CBC #### [place] [address] USAErythrocyte distribution width (RBC) [Ratio]12.8 %Normal 12.0-14.8The [facility] Physician GroupComment on above:Performed By: #### CK, HS TROP, PTT, BNP, PT, BMP, HEPATIC, CBC #### [place] [address] USAHematocrit (Bld) [Volume fraction]43.5 %Nmbgzk35.8-50.0The [facility] Physician GroupComment on above:Performed By: #### CK, HS TROP, PTT, BNP, PT, BMP, HEPATIC, CBC #### [place] [address] USAHemoglobin (Bld) [Mass/Vol]15.1 g/jDUzmhnl50.0-17.0The [facility] Physician GroupComment on above:Performed By: #### CK, HS TROP, PTT, BNP, PT, BMP, HEPATIC, CBC #### [address] [address] USALymphocytes (Bld) [#/Vol]3.8 10*3/uLNormal1.00-4.8The [facility] Physician GroupComment on above:Performed By: #### CK, HS TROP, PTT, BNP, PT, BMP, HEPATIC, CBC #### [place] [address] USALymphocytes/100 WBC (Bld)37.5 %Normal.The [facility] Physician GroupComment on above:Performed By: #### CK, HS TROP, PTT, BNP, PT, BMP, HEPATIC, CBC #### [address]H (RBC) [Entitic mass]30.6 tcQdmzpn38.5-35.2The [facility] Physician GroupComment on above:Performed By: #### CK, HS TROP, PTT, BNP, PT, BMP, HEPATIC, CBC #### [address]V (RBC) [Entitic vol]88.2 iCOxjffu85.5-101The [facility] Physician GroupComment on above:Performed By: #### CK, HS TROP, PTT, BNP, PT, BMP, HEPATIC, CBC #### [place] [address] USAMean Corpuscular HGB Conc34.7 g/nIYwxbbb45.5-35.6The [facility] Physician GroupComment on above:Performed By: #### CK, HS TROP, PTT, BNP, PT, BMP, HEPATIC, CBC #### [place] [address] USAMonocytes (Bld) [#/Vol]0.6 10*3/uLNormal0.0-0.8The [facility] Physician GroupComment on above:Performed By: #### CK, HS TROP, PTT, BNP, PT, BMP, HEPATIC, CBC #### [place] [address] USAMonocytes/100 WBC (Bld)18.75 %Normal0.00-20.00The [facility] Physician GroupComment on above:Performed By: #### CK, HS TROP, PTT, BNP, PT, BMP, HEPATIC, CBC #### [place] [address] USAMonocytes/100 WBC (Bld)5.7 %Normal.The [facility] Physician GroupComment on above:Performed By: #### CK, HS TROP, PTT, BNP, PT, BMP, HEPATIC, CBC #### [place] [address] USANeutrophils (Bld) [#/Vol]5.3 10*3/uLNormal1.8-7.7The [facility] Physician GroupComment on above:Performed By: #### CK, HS TROP, PTT, BNP, PT, BMP, HEPATIC, CBC #### [place] [address] USANeutrophils/100 WBC (Bld)52.4 %Normal.The [facility] Physician GroupComment on above:Performed By: #### CK, HS TROP, PTT, BNP, PT, BMP, HEPATIC, CBC #### [place] [address] USANRBC%0.1 /100{WBC}Normal0-0.5The [facility] Physician Group Comment on above:Performed By: #### CK, HS TROP, PTT, BNP, PT, BMP, HEPATIC, CBC #### [place] [address] USAPlatelet mean volume (Bld) [Entitic vol]8.5 fLNormal 6.6-10.1The [facility] Physician GroupComment on above:Performed By: #### CK, HS TROP, PTT, BNP, PT, BMP, HEPATIC, CBC #### [place] [address] USAPlatelets (Bld) [#/Vol]343 10*3/lSKjkttv280-257Znd [facility] Physician GroupComment on above:Performed By: #### CK, HS TROP, PTT, BNP, PT, BMP, HEPATIC, CBC #### [address] [address] USARBC (Bld) [#/Vol]4.93 10*6/uLNormal3.90-5.60The [facility] Physician GroupComment on above:Performed By: #### CK, HS TROP, PTT, BNP, PT, BMP, HEPATIC, CBC #### [facility] [address] [place] [address] USAWBC (Bld) [#/Vol]10.2 10*3/uLNormal4.1-10.5The [facility] Physician GroupComment on above:Performed By: #### CK, HS TROP, PTT, BNP, PT, BMP, HEPATIC, CBC #### [facility] [address] [place] [address] USACreatine Kinaseon 41-61-6586EU [Catalytic activity/Vol]66 U/KFrvfvy53-295Ykm [facility] Physician GroupComment on above:Performed By: #### CK, HS TROP, PTT, BNP, PT, BMP, HEPATIC, CBC ####[facility] [address] [place] [address] USACreatine kinase [Enzymatic activity/volume] in Serum or PlasmaOrdered By: Allen Cheung on 54-28-2059WC [Catalytic activity/Vol]Creatine kinase [Enzymatic activity/volume] in Serum or Gnpdyd00-671PpzelagdzSt. John Of God HospitalCreatinine [Mass/volume] in Serum or PlasmaOrdered By: Allen Cheung on 17-69-8926Egnvwnaocl [Mass/Vol]Creatinine [Mass/volume] in Serum or Plasma0.70-1.30St. [facility] God HospitalECG 12 lead ECGon 43-48-7284LKF 12 lead ECGAD[facility] Main [place] [address] [place] [address] Electrocardiograph Report Signed Patient: Allie Funes MR#: [id number] : 1990 Acct:[id number] Age/Sex: 34 / M ADM Date: 08/01/24 Loc: ER Room: Type: [facility] ER Attending Dr: Ordering Provider: Allen Cheung, DO Date of Service: 08/01/2412/18/1640 ECG/ECG 12 lead ECG: CHEST PAIN Copies to: Test Reason : Blood Pressure : 134/82 mmHG Vent. Rate : 132 BPM Atrial Rate : 132 BPM P-R Int : 96 ms QRS Dur : 164 ms QT Int : 394 ms P-R-T Axes : * 197 26 degrees QTcB Int : 583 ms Sinus tachycardia with short SD Right bundle branch block Possible Inferior infarct , age undetermined Abnormal ECG When compared with ECG of 19-Feb-2016 09:44, SD interval has decreased Vent. rate has increased by 52 bpm QRS duration has increased Borderline criteria for Inferior infarct are now present T wave amplitude has increased in Lateral leads Confirmed by Allen Cheung DO ([id number]) on 08/01/2024 7:18:48 PM Referred By: Electronically Signed By: Allen Cheung DO Transcribed By: MUS Signed By Allen Cheung DO 5 191[facility] Physician GroupEosinophils Auto (Bld) [#/Vol]Ordered By: Allen Cheung on 06-70-0981Okneolbtxti (Bld) [#/Vol]Automated eosinophil count 0.0-0.45St. [facility] God HospitalEosinophils/100 WBC Auto (Bld)Ordered By: Allen Cheung on 84-01-2809Wsldjjbxrva/100 WBC (Bld)Automated eosinophil %. St. [facility] God HospitalErythrocyte distribution width Auto (RBC) [Ratio]Ordered By: Allen Cheung on 04-76-9837Zpypqsditzb distribution width (RBC) [Ratio]Erythrocyte distribution width [Ratio] by Automated count12.0-14.8 [facility] God HospitalGlobulin Calc (S) [Mass/Vol]Ordered By: Allen Cheung on 72-99-6733Djltcowc (S) [Mass/Vol]Serum globulin measurement by calculation (mass/volume)[facility] HospitalGlucose [Mass/volume] in Serum or PlasmaOrdered By: Allen Cheung on 38-08-2070Xbmvjha [Mass/Vol]Glucose [Mass/volume] in Serum or Bvuvdh99-992SmjfitsmfSt. John Of God HospitalComment on above:ADA recommended reference rangeRandom Glucose Reference Range is dependent on time and content of last meal. Glucose of more than 200 mg/dL in a nonstressed, ambulatory subject supports the diagnosisof Diabetes Mellitus. Hematocrit Auto (Bld) [Volume fraction]Ordered By: Allen Cheung on 08-01-2024 Hematocrit (Bld) [Volume fraction]Hematocrit [Volume Fraction] of Blood by Automated count38.8-50.0St. [facility] God HospitalHemoglobin [Mass/volume] in BloodOrdered By: Allen Cheung on 14-89-6201Mvhbznplfe (Bld) [Mass/Vol]Hemoglobin [Mass/volume] in Blood13.0-17.0St. [facility] HospitalHepatic Panelon 30-15-8411Smjlsft [Mass/Vol]5.1 g/dLNormal3.5-5.7The [facility] Physician GroupComment on above:Performed By: #### CK, HS TROP, PTT, BNP, PT, BMP, HEPATIC, CBC #### [facility] [address] [place] [address] USAAlbumin/Globulin [Mass ratio]1.6 {ratio}NormalThe [facility] Physician GroupComment on above:Performed By: #### CK, HS TROP, PTT, BNP, PT, BMP, HEPATIC, CBC #### [facility] [address] [place] [address] USAALP [Catalytic activity/Vol]76 U/YZugebq34-638Dzi [facility] Physician GroupComment on above:Performed By: #### CK, HS TROP, PTT, BNP, PT, BMP, HEPATIC, CBC #### [facility] [address] [place] [address] USAALT [Catalytic activity/Vol]26 U/LNormal7-52The [facility] Physician GroupComment on above:Performed By: #### CK, HS TROP, PTT, BNP, PT, BMP, HEPATIC, CBC #### [facility] [address] [place] [address] USAAST [Catalytic activity/Vol]17 U/UZcokty43-69Nls [facility] Physician GroupComment on above:Performed By: #### CK, HS TROP, PTT, BNP, PT, BMP, HEPATIC, CBC #### [facility] [address] [place] [address] USABilirubin [Mass/Vol]1.3 mg/dLHigh0.3-1.0The [facility] Physician [facility] Health WesleyComment on above:Result Comment: Samples from patients who have taken Naproxen have shown spurious elevation in Total Bilirubin levels. A metabolite of Naproxen, O-desmethylnaproxen, has been shown to interfere with the Fernando-Naye method for measuring Total Bilirubin.Performed By: #### CK, HS TROP, PTT, BNP, PT, BMP, HEPATIC, CBC #### [facility] [address] [place] [address] USABilirubin,Indirect1.1 mg/dLNoSelect Specialty Hospital - [facility] Physician [facility] WesleyComment on above:Performed By: #### CK, HS TROP, PTT, BNP, PT, BMP, HEPATIC, CBC #### [facility] [address] [place] [address] USABilirubin.indirect [Mass/Vol]0.20 mg/dLHigh0.03-0.18The [facility] - Laurel HighlandsComment on above:Performed By: #### CK, HS TROP, PTT, BNP, PT, BMP, HEPATIC, CBC #### [facility] [address] [place] [address] USAGlobulin (S) [Mass/Vol]3.1 g/dLNoCleveland Clinic Akron General Lodi HospitalComment on above:Performed By: #### CK, HS TROP, PTT, BNP, PT, BMP, HEPATIC, CBC #### [facility] [address] [place] [address] USAProtein [Mass/Vol]8.2 g/dLNormal6.4-8.9The [facility] Physician [facility] Health WesleyComment on above:Performed By: #### CK, HS TROP, PTT, BNP, PT, BMP, HEPATIC, CBC #### [place] [address] USAINR in Platelet poor plasma by Coagulation assayOrdered By: Allen Cheung on 64-18-8200ECQ Coag (PPP) [Relative time]INR in Platelet poor plasma by Coagulation assaySt. John Of God HospitalComment on above:INR Therapeutic Range A) Pre- and Peroperative OAT started two weeks before surgery. NOT HIP SURGERY: 1.5 - 2.5 HIP SURGERY: 2 - 3B) Primary and secondary prevention of venous THROMBOSIS: 2 - 3C) Active venous thrombosis, pulmonary embolismand prevention of recurrent venous thrombosis: 2 - 3D) Prevention of arterial thromboembolismincluding patients with mechanical heart valves: 3 - 4.5 Leukocytes [#/volume] corrected for nucleated erythrocytes in Blood by Automated counOrdered By: Allen Cheung on 26-40-4327SOL corrected for nucl RBC Auto (Bld) [#/Vol]Leukocytes [#/volume] corrected for nucleated erythrocytes in Blood by Automated coun4.1-10.5FSCCI Hospital LimaLymphocytes Auto (Bld) [#/Vol]Ordered By: Allen Cheung on 11-54-8360Rqzbpxsmjbj (Bld) [#/Vol]Lymphocytes [#/volume] in Blood by Automated count1.00-4.8[facility] Lymphocytes/100 WBC Auto (Bld)Ordered By: Allen Cheung on 08-01-2024 Lymphocytes/100 WBC (Bld)Lymphocytes/100 leukocytes in Blood by Automated count. St. John Of God HospitalMCH Auto (RBC) [Entitic mass]Ordered By: Allen Cheung on 30-21-4362NYK (RBC) [Entitic mass]MCH [Entitic mass] by Automated count 27.5-35.2FSCCI Hospital LimaMCHC Auto (RBC) [Mass/Vol]Ordered By: Allen Cheung on 46-11-1478QPDH (RBC) [Mass/Vol]MCHC [Mass/volume] by Automated count32.5-35.6FSCCI Hospital LimaMCV Auto (RBC) [Entitic vol] Ordered By: Allen Cheung on 34-36-8031PLK (RBC) [Entitic vol]MCV [Entitic volume] by Automated count83.5-101St. [facility] Of God HospitalMonocyte distribution width [Entitic volume] in Blood by AutomatedOrdered By: Allen Cheung on 65-09-6667Rfgfqyxi distribution width Auto (Bld) [Entitic vol]Monocyte distribution width [Entitic volume] in Blood by Automated0.00-20.00St. [facility] Of God HospitalMonocytes Auto (Bld) [#/Vol]Ordered By: Allen Cheung on 86-85-8520Phznzthem (Bld) [#/Vol]Automated blood monocyte count0.0-0.8St. [facility] God HospitalMonocytes/100 WBC Auto (Bld)Ordered By: Allen Cheung on 44-18-0292Bbnescnpi/100 WBC (Bld)Automated monocyte %.St. [facility] God HospitalNatriuretic peptide B [Mass/Vol]Ordered By: Allen Cheung on 08-01-2024 Natriuretic peptide B (Bld) [Mass/Vol]BNP ser/plas5-100St. [facility] Of God HospitalNeutrophils Auto (Bld) [#/Vol]Ordered By: Allen Cheung on 68-97-1110Vdwlkyuqitz (Bld) [#/Vol]Neutrophils [#/volume] in Blood by Automated count1.8-7.7FSCCI Hospital LimaNeutrophils/100 WBC Auto (Bld) Ordered By: Allen Cheung on 88-31-2183Pgzoltessuj/100 WBC (Bld)Automated neutrophil %.St. [facility] God HospitalNo Panel InformationOrdered By: Allen Cheung on 61-58-0863Dmbbmcxcp GFR (CKD-EPI)> 60.0 mL/MinSt. John Of God HospitalPharmacy Creatinine Clearance (ChemN/[facility] Medical CenterNucleated erythrocytes [Presence] in Blood by Automated countOrdered By: Allen Cheung on 46-82-0760Vpbtllsdh RBC Auto Ql (Bld)Nucleated erythrocytes [Presence] in Blood by Automated count0-0.5FSCCI Hospital Lima Partial Thromboplastin Timeon 09-99-7903cZIO Coag (Bld) [Time]32.1 sNormal 25.1-36.5The [facility] Physician GroupComment on above:Result Comment: A hematocrit value greater than 55% may lead to inaccurate results in coagulation testing. Patients having hematocrit values >55% require a special collection tube for coagulation studies. Please contact the laboratory at [phone] for redraw instructions. PERFORMED BY: [address] [place] [address] PATHOLOGIST ELECTRONIC ORGAN TECHNICIAN FAREED DAVALOS M.D.Performed By: #### CK, HS TROP, PTT, BNP, PT, BMP, HEPATIC, CBC #### [facility] [address] [place] [address] USAPlatelet mean volume Auto (Bld) [Entitic vol]Ordered By: Allen Cheung on 49-44-7285Ldeucpjw mean volume (Bld) [Entitic vol]Platelet mean volume [Entitic volume] in Blood by Automated count6.6-10.1FSCCI Hospital LimaPlatelets Auto (Bld) [#/Vol]Ordered By: Allen Cheung on 08-01-2024 Platelets (Bld) [#/Vol]Platelets [#/volume] in Blood by Automated qbunx929-403 [facility] HospitalPotassium [Moles/volume] in Serum or Plasma Ordered By: Allen Cheung on 52-26-6595Mkqgvrjdy [Moles/Vol]Potassium [Moles/volume] in Serum or PlasmaLow3.5-5.1FSCCI Hospital Lima Protein [Mass/volume] in Serum or PlasmaOrdered By: Allen Cheung on 08-01-2024 Protein [Mass/Vol]Protein [Mass/volume] in Serum or Plasma6.4-8.9St. [facility] God HospitalProthrombin Time INRon 33-06-2036HNM Coag (PPP) [Relative time]1.0 {INR}NormalThe [facility] Physician GroupComment on above:Result Comment: INR Therapeutic Range A) Pre- and [...] patients with mechanical heart valves: 3 - 4.5Performed By: #### CK, HS TROP, PTT, BNP, PT, BMP, HEPATIC, CBC #### [facility] [address] [place] [address] USAPT Coag (PPP) [Time]11.8 sNormal9.0-12.9The [facility] Physician GroupComment on above:Result Comment: A hematocrit value greater than 55% may lead to inaccurate results in coagulation testing. Patients having hematocrit values >55% require a special collection tube for coagulation studies. Please contact the laboratory at [phone] for redraw instructions.Performed By: #### CK, HS TROP, PTT, BNP, PT, BMP, HEPATIC, CBC #### [facility] [address] [place] [address] USAProthrombin time (PT)Ordered By: Allen Cheung on 08-01-2024 PT Coag (PPP) [Time]Prothrombin time (PT)9.0-12.9St. [facility] Of God HospitalComment on above:A hematocrit value greater than 55% may lead to inaccurate results in coagulation testing. Patientshaving hematocrit values >55% require a special collection tube for coagulation studies. Please contact the laboratory at [phone] for redraw instructions.RBC Auto (Bld) [#/Vol]Ordered By: Allen Cheung on 57-80-6539UBU (Bld) [#/Vol]Erythrocytes [#/volume] in Blood by Automated count3.90-5.60St. [facility] God HospitalRespiratory (Upper) Panel, PCRon 46-52-4170Zzqykirhhoy (Upper) Panel, PCRAdenovirus Not detected Bordetella parapertussis Not detected Chlamydia [...] COVID-19 Detected/Not Detected Not detected Blank Space FLUA TEST INCLUDES Influenza A tests for the following clinically FLUA TEST INCLUDES significant subtypes: FLUA TEST INCLUDES - Influenza A FLUA TEST INCLUDES - Influenza A H1 FLUA TEST INCLUDES - Influenza A H1 2009 FLUA TEST INCLUDES - Influenza A H3 Blank Space PERFORMED BY: [facility] [address] [place] [id number] PATHOLOGIST ELECTRONIC ORGAN TECHNICIAN FRAEED DAVALOS M.D.[facility] Physician GroupComment on above: Performed By: #### BIOFIRECOVNOTDE, RESP PANEL UPP. ####[facility] [address] [place] [id number] USARespiratory pathogens DNA and RNA panel - Nasopharynx by HERBERTH with non-probe detectionOrdered By: Allen Cheung on 01-50-6608Hfaomlarcja pathogens DNA and RNA panel HERBERTH+non-probe (Nph) Respiratory pathogens DNA and RNA panel - Nasopharynx by HERBERTH with non-probe detectionSt. John Of God HospitalRespiratory pathogens DNA and RNA panel HERBERTH+non-probe (Nph)Respiratory pathogens DNA and RNA panel - Nasopharynx by HERBERTH with non-probe detectionLicking Memorial Hospitalerum or plasma albumin/globulin mass ratioOrdered By: Allen Cheung on 48-83-8984Wkutuoi/Globulin [Mass ratio]Serum or plasma albumin/globulin mass ratioLicking Memorial Hospitalerum or plasma anion gap determinationOrdered By: Allen Cheung on 72-17-7196Fdddt gap [Moles/Vol]Serum or plasma anion gap determination6.0-15.0 [facility] Memorial Hospitalerum or plasma non-glucuronidated bilirubin measurement (mass/volume)Ordered By: Allen Cheung on 03-68-9716Gnoqgdkfz.indirect [Mass/Vol]Serum or plasma non-glucuronidated bilirubin measurement (mass/volume)[facility] Memorial Hospitalodium [Moles/volume] in Serum or PlasmaOrdered By: Allen Cheung on 95-08-8457Qremxv [Moles/Vol]Sodium [Moles/volume] in Serum or Urmdtf028-216YyzfwkmjiSt. John Of God Hospital Troponin I High Sensitivityon 21-41-1278Yquyeqtc I High Qyvqvneacqb6Bhqcnl5-65 The [facility] Physician GroupComment on above:Result Comment: The Troponin units of report have been changed to meet the Chest Pain Accreditation requirement, element EC5.M1l2. Troponin units are changed from pg/ml to ng/L. Also, the decimal is removed and results are in whole numbers. PERFORMED BY: [place] [id number] PATHOLOGIST ELECTRONIC ORGAN TECHNICIAN FAREED DAVALOS M.D.Performed By: #### HS TROP ####[place] [address] [place] [address] USATroponin I High Sensitivity4 Normal0-20The [facility] Physician GroupComment on above:Result Comment: The Troponin units of report have been changed to meet the Chest Pain Accreditation requirement, element EC5.M1l2. Troponin units are changed from pg/ml to ng/L. Also, the decimal is removed and results are in whole numbers. PERFORMED BY: [facility] [address] [place] [id number] PATHOLOGIST ELECTRONIC ORGAN TECHNICIAN FAREED DAVALOS M.D.Performed By: #### CK, HS TROP, PTT, BNP, PT, BMP, HEPATIC, CBC ####[address] [address] USATroponin I.cardiac [Mass/volume] in Serum or Plasma by Detection limit <= 0.01 ng/Ordered By: Allen Cheung on 50-65-2965Fudpbohw I.cardiac DL <= 0.01 ng/mL [Mass/Vol]Troponin I.cardiac [Mass/volume] in Serum or Plasma by Detection limit <= 0.01 ng/0-20St. [facility] Of God HospitalComment on above:The Troponin units of report have been changed to meet the Chest Pain Accreditation requirement, element EC5.M1l2. Troponin units are changed from pg/ml to ng/L. Also, the decimal is removed and results are in whole numbers.Urea nitrogen [Mass/volume] in Serum or PlasmaOrdered By: Allen Cheung on 52-98-7267Iadi nitrogen [Mass/Vol]Urea nitrogen [Mass/volume] in Serum or Plasma-St. John Of God HospitalWBC Auto (Bld) [#/Vol]Ordered By: Allen Cheung on 07-71-6118MIY (Bld) [#/Vol]Leukocytes [#/volume] in Blood by Automated count 4.1-10.5FSCCI Hospital LimaX-ray reportOrdered By: Zachary Castle on 48-58-4238Wjaeh reportADAMS COUNTY REG[facility] Main [address] [address] XRay Report Signed Patient: Allie Funes MR#: [id number] : 1990 Acct:[id number] Age/Sex: 34 / M ADM Date: 5 Loc: ER Room: Type: [facility] ER Attending Dr: Copies to: Allen Cheung DO~ Ordering Provider: Allen hCeung DO Date of Service: 08/01/24 XR/XR chest [...] Zachary Castle M.D.08/01/2024 5:19 PM Dictation Location: [place] [address] Transcribed By: [facility] 08/01/241718 Dictated By: Zachary Castle DO 08/01/241718 Signed By: 08/01/241718 [facility] God HospitalXR chest 1V portableon 77-15-9389OX chest 1V portableAD[facility] Main [address] [address] XRay Report Signed Patient: Allie Funes MR#: [id number] : 1990 Acct:[id number] Age/Sex: 34 / M ADM Date: 08/01/24 Loc: ER Room: Type: [facility] ER Attending Dr: Copies to: Allen [...] Zachary Castle M.D.08/01/2024 5:19 PM Dictation Location: [facility]--[facility] Transcribed By: [facility] 08/01/241718 Dictated By: Zachary Castle DO 08/01/241718 Signed By: 08/01/241718[facility] Physician GroupaPTT in Platelet poor plasma by Coagulation assayOrdered By: Allen Cheung on 81-70-4196jHZJ Coag (PPP) [Time] Activated partial thromboplastin time (aPTT) in platelet poor plasma by coagulation a25.1-36.5FSCCI Hospital LimaComment on above:A hematocrit value greater than 55% may lead to inaccurate results in coagulation testing. Patientshaving hematocrit values >55% require a special collection tube for coagulation studies. Please contact the laboratory at [phone] for redraw instructions.Toni [id number] (CARCMN) ALLIE FUNES ([id number]) 1990 M Date Time Provider Department 06/17/24 ESME CALDERON CARCMN During your visit today, we recorded the following information about you: Erica Maldonado 06/17/2024 4:02 PM Signed June 17, 2024 Patient Contact Number: [phone] Patient last seen within the last year: [...] the next three business days. Yes Shakira Moore, RN 06/17/2024 4:33 PM Signed Pt was [...] Fully Assessed Reason for Visit: Patient Question [0957] Prescriptions as of 06/17/2024 - lisinopril (ZESTRIL) [...] 11/05/2023 Encounter Status:Closed by SHAKIRA ZAMAN on 06/17/24[facility]XR [facility] 2V*on 97-02-0458NA forearm RT 2V*[address] [address] XRay Report Signed Patient: Allie Funes MR#: [id number] : 1990 Acct:[id number] Age/Sex: 33 / M ADM Date: 12/29/23 Loc: [facility]DUC Room: Type: REG CLI Attending Dr: Teresa Ojeda JEWELRY MAKING INSTRUCTOR Copies to: Teresa Ojeda APRN Ordering Provider: [...] Zachary Castle M.D.12/29/2023 1:41 PM Dictation Location: [place] [address] Transcribed By: [facility] 12/29/23 1341 Dictated By: Zachary Castle DO 12/29/23 1339 Signed By: 12/29/23 1341[facility] Physician GroupXR hand RT min 3V*on 12-29-2023 XR hand RT min 3V*[address] [address] XRay Report Signed Patient: Allie Funes MR#: [id number] : 1990 Acct:[id number] Age/Sex: 33 / M ADM Date: 12/29/23 [facility] Room: Type: REG CLI Attending Dr: Teresa Ojeda JEWELRY MAKING INSTRUCTOR Copies to: Teresa Ojeda APRN Ordering Provider: [...] Zachary Castle M.D.12/29/2023 1:38 PM Dictation Location: [place] [address] Transcribed By: [facility] 12/29/23 1338 Dictated By: Zachary Castle DO 12/29/23 1335 Signed By: 12/29/23 1338[facility] Physician GroupECHO SPECIALIST COMPLEX ADULT CONGENITALon 11-05-2023 Echocardiography Report: [facility] J1-5 Date of service: 11/01/2023 12:48:23 PM DOOR MAN Ordering physician: ESME CALDERON Indication: Dysplastic TV / TVR Technologist: Ronald Bonilla [facility] Interpreting physician: Esme Calderon [...] Otherwise similar findings. * (more content not included)...[facility] INSTITUTES[facility] panel Auto (Bld)on 98-31-1030Kzoawvgregg distribution width (RBC) [Ratio]11.8 % Ngvbsu13.5-15.0[facility] on above:Order Comment: Specimen Type: BLOOD SPECIMEN Ordering Facility: [facility] Address: [address] [place], [place] [address]Performed By: #### 60707-5 #### [facility] CLIA [id number] [address] [place] [address] [place] OF AMERICAHematocrit (Bld) [Volume fraction]41.7 %Wostab57.0-51.0[facility] on above:Order Comment: Specimen Type: BLOOD SPECIMEN Ordering Facility: [facility] Address: [address] [place], [place] [address]Performed By: #### 15885-0 #### [facility] CLIA [id number] [address]ETHemoglobin (Bld) [Mass/Vol] 14.5 g/dOShgsku44.0-17.0[facility] on above:Order Comment: Specimen Type: BLOOD SPECIMEN Ordering Facility: [facility] Address: [address] [place], [place] [address]Performed By: #### 07272-4 #### [facility] CLIA [id number] [address] [place], [place] [address]H (RBC) [Entitic mass]30.3 joShnwzl01.0-34.0[facility] on above:Order Comment: Specimen Type: BLOOD SPECIMEN Ordering Facility: [facility] Address: [address] [place], [place] [address]Performed By: #### 45288-4 #### [facility] CLIA [id number] [address] [place], [place] [address]HC (RBC) [Mass/Vol]34.8 g/qTFzvvyl67.5-36.0[facility] on above:Order Comment: Specimen Type: BLOOD SPECIMEN Ordering Facility: [facility] Address: [address] [place], [place] [address]Performed By: #### 54518-4 #### [facility] CLIA [id number] [address] [place] [address] (RBC) [Entitic vol]87.2 cNRytcyl37.0-100.0[facility] on above:Order Comment: Specimen Type: BLOOD SPECIMEN Ordering Facility: [facility] Address: [address] [place], [place] [address]Performed By: #### 36200-5 #### [facility] CLIA [id number] [address] [place] [address] RBC (Bld) [#/Vol] 10*3/uLNormal<0.01[facility] on above:Order Comment: Specimen Type: BLOOD SPECIMEN Ordering Facility: [facility] Address: [address] [place], [place] [address]Performed By: #### 52166-8 #### [facility] CLIA [id number] [address] [place], [place] [address] [place] OF AMERICAPlatelet mean volume (Bld) [Entitic vol]10.3 fLNormal9.0-12.7CMarietta Osteopathic Clinic on above: Order Comment: Specimen Type: BLOOD SPECIMEN Ordering Facility: [facility] Address: [address] [place], [place] [address]Performed By: #### 40638-5 #### [facility] CLIA [id number] [address] [place] [address] [place] AMERICAPlatelets (Bld) [#/Vol]295 10*3/nUSzysmt840-501WfossavziSelect Medical Specialty Hospital [facility] on above:Order Comment: Specimen Type: BLOOD SPECIMEN Ordering Facility: [facility] Address: [address] [place], [place] [address]Performed By: #### 00321-9 #### [facility] CLIA [id number] [address] [place] [address] [place] AMERICARBC (Bld) [#/Vol]4.78 10*6/uLNormal4.20-6.00[facility] on above:Order Comment: Specimen Type: BLOOD SPECIMEN Ordering Facility: [facility] Address: [address] [place], [place] [address]Performed By: #### 50407-9 #### [facility] CLIA [id number] [address] [place] [address] [place] AMERICAWBC (Bld) [#/Vol]7.94 10*3/uLNormal3.70-11.00[facility] on above:Order Comment: Specimen Type: BLOOD SPECIMEN Ordering Facility: [facility] Address: [address] [place], [place] [address]Performed By: #### 28554-6 #### [facility] BASSAM [id number] [address] [place] [address] [place] [address] [place] [address] [address] [facility] YOUNGSTOWN HOSPITALCNOVon 41-73-7456ZJPRVvwcbg Visit (CARCMN) ALLIE FUNES ([id number]) 1990 M Date Time Provider Department 11/01/23 2:15 PM ESME CALDERON CARCMN During your visit today, we recorded the following information about you: Pulse Blood pressure Weight 92/minute 128/86 107.7 kg Esme Calderon MD 11/05/2023 4:22 PM [facility] [place] ADULT CONGENITAL [facility] OUTPATIENT VISIT DATE November 01, 2023 OUTPATIENT VISIT TYPE ESTABLISHED PRIMARY CARE PHYSICIAN: Carlos Arceo Sr. [address] [place] [address] CHIEF COMPLAINT: Follow up CONGENITAL CARDIAC HISTORY: [...] Procedure Laterality Date HEART CATHETERIZATION 02/2016 at [facility] HEART SURGERY HX 07/29/2016 s/p sternotomy, TV [...] wheezing or rhonchi. H (more content not included)...NormalPremier Health Atrium Medical CenterComprehensive metabolic 2000 panelon 73-63-3069Jozodfq [Mass/Vol]4.6 g/dLNormal3.9-4.9 [facility] on above:Order Comment: Specimen Type: BLOOD SPECIMEN Ordering Facility: [facility] Address: [address] [place], [place] [address]Performed By: #### JOLENE, 94547-5, 85182-8 #### [facility] CLIA [id number] [address] [place] [address] [place] AMERICAALP [Catalytic activity/Vol] 83 U/QZpsqyw54-521AuqajqcycSelect Medical Specialty Hospital [facility] on above:Order Comment: Specimen Type: BLOOD SPECIMEN Ordering Facility: [facility] Address: [address] [place], [place] [address]Performed By: #### JOLENE, 41578-2, 76389-1 #### [facility] CLIA [id number] [address] [place] [address] [place] AMERICAALT [Catalytic activity/Vol] 21 U/OPqtfqd74-86UrjeaiveqSelect Medical Specialty Hospital [facility] on above:Order Comment: Specimen Type: BLOOD SPECIMEN Ordering Facility: [facility] Address: [address] [place], [place] [address]Performed By: #### JOLENE, 76739-7, 31807-2 #### [facility] CLIA [id number] [address] [place] [address] [place] AMERICAAnion gap [Moles/Vol]14 mmol/LNormal9-18[facility] on above:Order Comment: Specimen Type: BLOOD SPECIMEN Ordering Facility: [facility] Address: [address] [place], [place] [address]Performed By: #### JOLENE, 99925-9, 68364-0 #### [facility] CLIA [id number] [address] [place] [address] [place] AMERICAAST [Catalytic activity/Vol] 15 U/TXmhlhz78-43UcgrmzbveSelect Medical Specialty Hospital [facility] on above:Order Comment: Specimen Type: BLOOD SPECIMEN Ordering Facility: [facility] Address: [address] [place], [place] [address]Performed By: #### JOLENE, 81909-0, 57459-9 #### [facility] CLIA [id number] [address] [place] [address] [place] AMERICABilirubin [Mass/Vol]0.8 mg/dLNormal0.2-1.3CMarietta Osteopathic Clinic on above:Order Comment: Specimen Type: BLOOD SPECIMEN Ordering Facility: [facility] Address: [address] [place], [place] [address]Performed By: #### JOLENE, 22353-0, 75974-4 #### [facility] CLIA [id number] [address] [place] [address] [place] AMERICACalcium [Mass/Vol]9.9 mg/dL Normal8.5-10.2CMarietta Osteopathic Clinic on above:Order Comment: Specimen Type: BLOOD SPECIMEN Ordering Facility: [facility] Address: [address] [place], [place] [address]Performed By: #### LIPNF, 26819-9, 31738-1 #### [facility] CLIA [id number] [address] [place] [address] [place] AMERICAChloride [Moles/Vol]103 mmol/KUocyoi02-814SgqqcfcwvSelect Medical Specialty Hospital [facility] on above:Order Comment: Specimen Type: BLOOD SPECIMEN Ordering Facility: [facility] Address: [address] [place], [place] [address]Performed By: #### LIPNF, 15328-6, 93666-3 #### [facility] CLIA [id number] [address] [place] [address] [place] AMERICACO2 [Moles/Vol]21 mmol/LLow 22-30[facility] on above:Order Comment: Specimen Type: BLOOD SPECIMEN Ordering Facility: [facility] Address: [address] [place], [place] [address]Performed By: #### LIPNF, 41562-9, 31653-5 #### [facility] CLIA [id number] [address] [place] [address] [place] AMERICACreatinine [Mass/Vol]0.99 mg/dLNormal0.73-1.22Premier Health Atrium Medical CenterComwalter p. [facility] on above:Order Comment: Specimen Type: BLOOD SPECIMEN Ordering Facility: [facility] Address: [address] [place], [place] [address]Performed By: #### LIPNF, 76858-0, 64426-1 #### [facility] CLIA [id number] [address] [place] [address] [place] AMERICACreatinine and Glomerular filtration rate.predicted panel (S/P/Bld)103 mL/min/1.73m???Normal>=60[facility] on above:Order Comment: Specimen Type: BLOOD SPECIMEN Ordering Facility: [facility] Address: [address] [place], [place] [address]Result Comment: Estimated Glomerular Filtration Rate (eGFR) is calculated using the 2020 CKD-EPI cre atinine equation. This equation utilizes serum creatinine, sex, and age as parameters. The creatinine assay has traceable calibration to isotope dilution- mass spectrometry. Refer to KDIGO guidelines for clinical interpretation. In patients with unstable renal function, e.g. those with acute kidney injury, the eGFR may not accurately reflect actual GFR.Performed By: #### JOLENE, 01519-4, 44559-5 #### [facility] CLIA [id number] [address] [place] [address] [place] AMERICAGlucose [Mass/Vol]96 mg/dL Pzhwrp01-90BxzrcbqkpSelect Medical Specialty Hospital [facility] on above:Order Comment: Specimen Type: BLOOD SPECIMEN Ordering Facility: [facility] Address: [address] [place], [place] [address]Result Comment: The [place] Diabetes Association (ADA) provides guidance for cutoff [...] Standards of Medical Care in Diabetes 2016, [place] [employer]. Diabetes Care. 2016.39(Suppl 1).Performed By: #### JOLENE, 04880-2, 46419-1 #### [facility] CLIA [id number] [address] [place] [address] [place] AMERICAPotassium [Moles/Vol]4.1 mmol/LNormal3.7-5.1CMarietta Osteopathic Clinic on above:Order Comment: Specimen Type: BLOOD SPECIMEN Ordering Facility: [facility] Address: [address] [place], [place] [address]Performed By: #### JOLENE, 75419-6, 38399-1 #### [facility] [place] [id number] [address] [place] [address] [place] AMERICAProtein [Mass/Vol]7.5 g/dL Normal6.3-8.0[facility] on above:Order Comment: Specimen Type: BLOOD SPECIMEN Ordering Facility: [facility] Address: [address] [place], [place] [address]Performed By: #### JOLENE, 35244-1, 91194-7 #### [facility] [place] [id number] [address] [place] [address] [place] AMERICASodium [Moles/Vol]138 mmol/L Jwngyy374-700DnfifggtwSelect Medical Specialty Hospital [facility] on above:Order Comment: Specimen Type: BLOOD SPECIMEN Ordering Facility: [facility] Address: [address] [place], [place] [address]Performed By: #### JOLENE, 48246-7, 59529-3 #### [facility] [place] [id number] [address] [place] [address] [place] AMERICAUrea nitrogen [Mass/Vol]18 mg/dLNormal9-24[facility] on above:Order Comment: Specimen Type: BLOOD SPECIMEN Ordering Facility: [facility] Address: [address] [place], [place] [address]Performed By: #### JOLENE, 99701-6, 32001-1 #### [facility] IA [id number] [address] [place] [address] [place] OF AMERICAECG COMPLETEon 96-34-8075DFA COMPLETEVentricular Rate : 90 BPM Atrial Rate : 90 BPM P-R Interval : 146 ms QRS Duration : 160 ms Q-T Interval : 400 ms QTC Calculation(Bazett) : 489 ms Calculated P Alexander : 36 degrees Calculated R Alexander : 68 degrees Calculated T Alexander : 17 degrees NORMAL SINUS RHYTHM COMPLETE RIGHT BUNDLE BRANCH BLOCK ABNORMAL ECG Confirmed by ASHLEY PAIZ MD ([id number]) on 11/03/2023 11:00:39 PM NAME : ALLIE FUNES PID : [id number] : 1990 Gender : Male Race : ORD : [id number] Procedure Date : Nov 01 2023 10:22:27 Edit Date : Nov 03 2023 23:00:45 Diagnosis: NORMAL SINUS RHYTHM COMPLETE RIGHT BUNDLE BRANCH BLOCK ABNORMAL ECG Confirmed by ASHLEY PAIZ MD ([id number]) on 11/03/2023 11:00:39 PM Test Reason : Location : 314 : [facility] J Overread By : ASHLEY PAIZ MD Edited By : ASHLEY PAIZ MD Referred By : ESME CALDERON Acquired by : GINA MUNROE [facility] 05-35-3562FFOAICBJGdwsycbusgndxggu Report: [facility] J1-5 Date of service: 11/01/2023 12:48:23 PM DOOR MAN Ordering physician: ESME CALDERON Indication: Dysplastic TV / TVR Technologist: Ronald Bonilla [facility] Interpreting physician: Esme Calderon [...] RV systolic tissue Doppler velocity is 6.0 cm/s.Tricuspid annular displacement is 1.1 cm. RV global [...] aortic valve. There is no thickening. The peakgradient is 7 mmHg (peak velocity = 133.1 [...] regurgitation noted today. Otherwise similar findings. Final [facility] : [id number] See Link below for ImageNormalClevelScionHealthEXERCISE STRESS ECG METABOLIC (WITHOUT IMAGING)on 21-30-9020JHOSDVVF STRESS ECG METABOLIC (WITHOUT IMAGING)Stress ECG Report: Exercise Stress ECG Metabolic (without Imaging) [facility] MARIAH-2 Date of service: 11/01/2023 9:06:58 AM DOOR MAN phlebotomy specialist: Cathy Lopez Room Service Attendant: Tamika Dixon Interpreting physician: Maggie Cruz MD [...] Protocol: Denice 10% Stress Exercise Table: +-----+ +--------+ +---+---+---+----+---+ Stage Speed (MPH) Grade(%) Time (min) HR SYS PAU RPE SOB +-----+ +--------+ +---+---+---+----+---+ 1 1.7 10.0 2.0 136 140 96 9.0 0.5 +-----+ +--------+ +---+---+---+----+---+ 2 2.1 11.0 4.0 159 174 96 11.0 3.0 +-----+ +--------+ +---+---+---+----+---+ 3 2.5 12.0 6.0 173 162 94 15.0 4.0 +-----+ +--------+ +---+---+---+----+---+ 4 3.0 13.0 8.0 188 176 80 +-----+ +--------+ +---+---+---+----+---+ +-----+ +---------+ +---+---+---+----+---+ Speed (MPH) Grade (%) Time (min) HR SYS PAU RPE SOB +-----+ +---------+ +---+---+---+----+---+ Final 3.4 14.0 8.33 188 176 80 17.0 6.0 +-----+ +---------+ +---+---+---+----+---+ Recovery Table: +------+ +--------+ +---+---+---+----+ Stage Speed (MPH) Grade(%) Time (min) HR SYS PAU METS +------+ +--------+ +---+---+---+----+ 1 1.0 1.0 1.0 182 160 88 1.9 +------+ +--------+ +---+---+---+----+ 2 1.0 1.0 2.0 170 154 88 1.9 +------+ +--------+ +---+---+---+----+ 3 3.0 142 160 86 +------+ +--------+ +---+---+---+----+ 4 5.0 118 150 82 +------+ +--------+ +---+---+---+----+ Stress Observations: Metabolic stress lab #: 1 Study protocol type: [place] 10% Final treadmill speed: 3.40 mph Final [...] (HRR): 6 bpm Rate Pressure Product (RPP): 22007 Metabolic Exercise Data Variable: Observed value [Expected [...] WW, Heidi DY and Tin Cummings & Juan Ramon's: Principles of Exercise Testing and Interpretation: Including Pathophysiology and Clinical Applications: Dre Slim & Murphy; 2020. - Rhonda U, Logan PG, Jack (more content not included)...NormalPremier Health Atrium Medical CenterLIPID PANEL, NONFASTINGon 08-71-4156Asjvqquukcd [Mass/Vol]184 mg/dL Normal<200Premier Health Atrium Medical CenterComment on above:Order Comment: Specimen Type: BLOOD SPECIMEN Ordering Facility: [facility] Address: [address] [place], [place] [address]Result Comment: <200 mg/dL, Desirable 200-239 mg/dL, Borderline high >239 mg/dL, HighPerformed By: #### LIPNF, 63673-7, 17599-1 #### [facility] CLIA [id number] [address] [place] [address] [address]ETHDL CHOLESTEROL, NF36 mg/dL Low>39[facility] on above:Order Comment: Specimen Type: BLOOD SPECIMEN Ordering Facility: [facility] Address: [address] [place], [place] [address]Result Comment: 40-59 mg/dL, Acceptable >59 mg/dL, High: Negative risk factor for coronary heart disease <40 mg/dL, Low: Positive risk factor for coronary heart diseasePerformed By: #### JOLENE, 92280-4, 17406-1 #### [facility] CLIA [id number] [address] [place], [place] [address]LDL CHOLESTEROL, NF112 mg/dL High<100[facility] on above:Order Comment: Specimen Type: BLOOD SPECIMEN Ordering Facility: [facility] Address: [address] [place], [place] [address]Result Comment: <100 mg/dL, Optimal 100-129 mg/dL, Near optimal/above optimal 130-159 mg/dL, Borderline high 160-189 mg/dL, High >189 mg/dL, Very high Secondary prevention optimal LDL Cholesterol levels are recommended to be < 70 mg/dLPerformed By: #### JOLENE, 31540-3, 66152-1 #### [facility] CLIA [id number] [address] [place], [place] [address]LDL/HDL RATIO, NF3.11 mg/dL High<2.54[facility] on above:Order Comment: Specimen Type: BLOOD SPECIMEN Ordering Facility: [facility] Address: [address] [place], [place] [address]Result Comment: Reference: 1. National Cholesterol Education Program ATP III Guideline At-A-Glance Quick Desk Reference: National Heart, Lung, and Blood [place]. National Institutes of Health. 2001: NIH Publication No. 01-3305. 2. An International Atherosclerosis Society position paper: global recommendations for the management of dyslipidemia: executive summary, Atherosclerosis. 2014: 232(2):410-413.Performed By: #### JOLENE, 78494-2, 57599-4 #### [facility] CLIA [id number] [address] [place], [place] [address] [place] AMERICANON HDL CHOL, NF148 mg/dL High<130[facility] on above:Order Comment: Specimen Type: BLOOD SPECIMEN Ordering Facility: [facility] Address: [address] [place], [place] [address]Result Comment: <130 mg/dL, Optimal 130-159 mg/dL, Near optimal/above optimal 160-189 mg/dL, Borderline high 190-219 mg/dL, High >219 mg/dL, Very high Secondary prevention optimal non HDL Cholesterol levels are recommended to be <100 mg/dLPerformed By: #### LIPLUIS ENRIQUE, 74409-9, 32903-2 #### [facility] CLIA [id number] [address] [place] [address] [address] [facility] HOSPITALT CHOL/HDL RATIO NF5.11 mg/dLHigh<5.10[facility] on above:Order Comment: Specimen Type: BLOOD SPECIMEN Ordering Facility: [facility] Address: [address] [place], [place] [address]Performed By: #### LIPLUIS ENRIQUE, 78463-9, 91518-7 #### [facility] CLIA [id number] [address] [place] [address] [place] AMERICATRIGLYCERIDES, NF181 mg/dL High<150[facility] on above:Order Comment: Specimen Type: BLOOD SPECIMEN Ordering Facility: [facility] Address: [address] [place], [place] [address]Result Comment: <150 mg/dL, Normal 150-199 mg/dL, Borderline high 200-499 mg/dL, High >499 mg/dL, Very highPerformed By: #### LIPNF, 96545-1, 03375-6 #### [facility] CLIA [id number] [address] [place] [address] [place] AMERICAVLDL CHOLESTEROL, NF36 mg/dL High<30[facility] on above:Order Comment: Specimen Type: BLOOD SPECIMEN Ordering Facility: [facility] Address: [address] [place], [place] [address]Performed By: #### JOLENE, 92876-6, 46223-9 #### [facility] CLIA [id number] [address] [place] [address] [place] AMERICANT-proBNP SerPl-mCncon 97-62-7859Pzkbiobwvyk peptide.B prohormone N-Terminal [Mass/Vol]88 pg/mLNormal <125Premier Health Atrium Medical CenterComment on above:Order Comment: Specimen Type: BLOOD SPECIMEN Ordering Facility: [facility] Address: [address] [place], [place] [address]Performed By: #### JOLENE, 41275-3, 96747-4 #### [facility] CLIA [id number] [address] [place] [address] OF HONG KONGERo Panel Informationon 24-22-9648Cmvybaevh ClinicCBC AUTO DIFFon 10-00-4867NJYW #0.1 103/ulNormal 0.0-0.1[facility] Marymount HospitalComment on above:Performed By: #### CBC #### [facility] [address] [place] [address] Dr. Temi LuxBasophils/100 WBC (Bld)0.9 %Normal0.2-2.0[facility] Comment on above:Performed By: #### CBC #### [facility] [address] [place], [place] [address] Dr. Temi Galvan #0.2 103/ulNormal0.0-0.7The Parkview HealthComment on above: Performed By: #### CBC #### [facility] [address] [place] [address] Dr. Temi Newosinophils/100 WBC (Bld)2.1 %Normal0.9-7.0[facility] Comment on above:Performed By: #### CBC #### [facility] [address] [place] [address] Dr. Temi Newrythrocyte distribution width (RBC) [Ratio]11.8 %Bnyfze47.0-15.0 [facility] HospitalComment on above:Performed By: #### CBC #### [facility] [address] [place] [address] Dr. Temi LuxHematocrit (Bld) [Volume fraction]41.7 %Critically low42.0-54.0 The Parkview HealthComment on above:Performed By: #### CBC #### [facility] [address] [place] [address] Dr. Temi LuxHemoglobin (Bld) [Mass/Vol]14.7 g/eWBauvkc70.0-18.0The Parkview HealthComment on above:Performed By: #### CBC #### [facility] [address] [place] [address] Dr. Temi Fowler #0.03 10e3/ulNormal0.00-0.03The Parkview HealthComment on above:Performed By: #### CBC #### [facility] [address] [place] [address] Dr. Temi Fowler %0.3 %Normal0.0-0.5The Parkview HealthComment on above: Performed By: #### CBC #### [facility] [address] [place] [address] Dr. Temi Smith #3.4 103/ulNormal1.2-3.8The [facility] HealthComwal[facility] on above:Performed By: #### CBC #### [facility] [address] [place] [address] Dr. Temi Mercerhocytes/100 WBC (Bld)35.2 %Kdmoje83.5-60.0The Parkview HealthComment on above:Performed By: #### CBC #### [facility] [address] [place] [address] Dr. Temi AlfordUAL DIFF REQNONormalThe Parkview HealthComment on above: Performed By: #### CBC #### [facility] [address] [place] [address] Dr. Temi Barrera (RBC) [Entitic mass]31.3 vcAouewn92.9-34.0The Parkview HealthComment on above:Performed By: #### CBC #### [facility] [address] [place] [address] Dr. Temi Keys (RBC) [Mass/Vol]35.3 g/dLCritically high29.9-35.2The Parkview HealthComment on above:Performed By: #### CBC #### [facility] [address] [place] [address] Dr. Temi Keys (RBC) [Entitic vol]88.9 wYHkgmzw21.0-94.0The Parkview HealthComment on above:Performed By: #### CBC #### [facility] [address] [place] [address] Dr. Temi Zamudio #0.4 103/ulNormal0.3-0.8The Park[facility] HealthComment on above:Performed By: #### CBC #### [facility] [address] [place] [address] Dr. Temi Pazocytes/100 WBC (Bld)4.6 %Normal1.7-12.0[facility] Comment on above:Performed By: #### CBC #### [facility] [address] [place] [address] Dr. Temi Saha #5.4 103/ulNormal1.4-6.5The Parkview HealthComment on above:Performed By: #### CBC #### [facility] [address] [place] [address] Dr. Temi Brunoutrophils/100 WBC (Bld)56.9 %Bhxkrs81.0-75.0The Parkview HealthComment on above:Performed By: #### CBC #### [facility] [address] [place] [address] Dr. Temi Carloslet mean volume (Bld) [Entitic vol]10.1 fLNormal9.5-13.5The Parkview HealthComment on above:Performed By: #### CBC #### [facility] [address] [address] [address] Temi LuxPLT291 103/bnAmdqyv162-867Pqc Parkview HealthComment on above: Performed By: #### CBC #### [facility] [address] [address] [address] Temi LuxRBC4.69 106/ulCritically low4.70-6.10The Parkview HealthComment on above:Performed By: #### CBC #### [facility] [address] [address] [address] Temi LuxWBC9.5 103/ulNormal4.0-11.0The Park[facility] HealthComment on above: Performed By: #### CBC #### [facility] [address] [place] [address] Dr. Temi LuxPROF CHEM 8 (BAS METB)on 31-59-2886Nhcua gap [Moles/Vol]12.5 mmol/LNormalThe Parkview HealthComment on above:Performed By: #### BMP, HSTROPN #### [facility] [address] [address] [address] Temi LuxCalcium [Mass/Vol]9.2 mg/dLNormal8.5-10.1[facility] Comment on above:Performed By: #### BMP, HSTROPN #### [facility] [address] [address] [address] Temi LuxChloride [Moles/Vol]102 mmol/IUyfvwl68-060Ejb [facility] Comment on above:Performed By: #### BMP, HSTROPN #### [facility] [address] [address] [address] Temi LuxCO2 [Moles/Vol]26.0 mmol/NStfsdo09.0-32.0[facility] Comment on above:Performed By: #### BMP, HSTROPN #### [facility] [address] [address] [address] Temi LuxCreatinine [Mass/Vol]0.91 mg/dLNormal0.70-1.30[facility] HospitalComment on above:Performed By: #### BMP, HSTROPN #### [facility] [address] [place] [address] Dr. Temi NewGFR-AF HONG KONGER>60Normal>=60The Parkview HealthComment on above:Performed By: #### BMP, HSTROPN #### [facility] [address] [place] [address] Dr. Temi NewGFR-NON AF [place]ER>60Normal>=60The Parkview HealthComment on above:Performed By: #### BMP, HSTROPN #### [facility] [address] [place] [address] Dr. Temi LuxGlucose [Mass/Vol]100 mg/cYXuuhpg50-894IdrCleveland Clinic [facility] Hospital Comment on above:Performed By: #### BMP, HSTROPN #### [facility] [address] [place] [address] Dr. Temi LuxPotassium [Moles/Vol]4.5 mmol/LNormal3.5-5.1[facility] Comment on above:Performed By: #### BMP, HSTROPN #### [facility] [address] [place] [address] Dr. Temi LuxSodium [Moles/Vol]136 mmol/ALrgtvx387-594FpxC[facility] Clinic [facility] Comment on above:Performed By: #### BMP, HSTROPN #### [facility] [address] [place] [address] Dr. Temi LuxUrea nitrogen [Mass/Vol]16.0 mg/dLNormal7.0-18.0The Park[facility] HealthComment on above:Performed By: #### BMP, HSTROPN #### [facility] [address] [place] [address] Dr. Temi Shane nitrogen/Creatinine [Mass ratio]17.6 mg/mgNormalThe Parkview HealthComment on above:Performed By: #### BMP, HSTROPN #### [facility] [address] [place] [address] Dr. Temi Hopkins, HIGH SENSITIVITYon 62-73-0238XKCFEN0.2 pg/mLNormal 4.0-76.1The [facility] on above:Result Comment: CUT-OFF POINTS HAVE BEEN ESTABLISHED BASED ON THE FOURTH UNIVERSAL DEFINITIONS OF MYOCARDIAL INFARCTION. THE UPPER REFERENCE LIMIT (URL) OF TROPONIN, DEFINED THE 99TH PERCENTILE OF cTnI DISTRIBUTION IN A REFERENCE POPULATION, HAS BEEN CONFIRMED THE DECISION THRESHOLD FOR [place] DIAGNOSIS.Performed By: #### BMP, HSTROPN #### [facility] [address] [address] [address] Temi LuxXR CHEST 1 Von [id number] CHEST 1 VEXAM: XR CHEST 1 V HISTORY: The patient is a 32-year-old male. CHEST PAIN, UNSPECIFIED COMPARISON: 12/16/2021. FINDINGS: The lungs are well-inflated and clear with no confluent airspace infiltrates, pleural effusions, or pneumothoraces. The heart and mediastinum are within normal limits. The trachea is midline. IMPRESSION: No acute cardiopulmonary abnormalities. Electronically authenticated by: BILL GONZALEZ Date: 2022-06-27 18:22NoBarnesville HospitalCovid-19 PCR (CVDTBH)on 44-32-2024TVMT-CoV-2 (COVID-19) RNA HERBERTH+probe Ql (Unsp spec)DetectedCritically abnormalNOT DETECTEDThe [facility] on above:Result Comment: This test is not yet approved or cleared by the [place] FDA. When there are no FDA-approved or cleared tests available, and other criteria are met, FDA can make tests available under an emergency access mechanism called an Emergency Use Authorization (EUA). The EUA for this test is supported by the Building Maintenance Supervisor of Health and Human Service's declaration that circumstances exist to justify the emergency use of in vitro diagnostics for the detection and/or diagnosis of the virusthat causes COVID-19. This EUA will remain in effect for the duration of the COVID-19 declaration ju stifying emergency of IVDs, unless it is terminated or revoked by the FDA (after which the test mayno longer be used). This test is not yet approved or cleared by the [place] FDA. When there are no FDA-approved or cleared tests available, and other criteria are met, FDA can make tests available under an emergency access mechanism called an Emergency Use Authorization (EUA). The EUA for this test is supported by the Building Maintenance Supervisor of Health and Human Service's (HHS's) declaration [...] which the test may no longer be used).Performed By: #### TYLER, DIA #### [facility] [address] [place] [address] Dr. Temi ROBERSON 3-6on 43-26-0485QV [Catalytic activity/Vol]72 U/L Rxdkuy58-072WviCleveland Clinic Marymount HospitalComment on above:Performed By: #### DIA SCOTT #### [facility] [address] [place] [address] Dr. Temi Rock.MB [Mass/Vol]0.71 ng/mLNormal<=3.60[facility] Comment on above:Performed By: #### TYLER, BMP #### [facility] [address] [place] [address] Dr. Temi BurnetteTROP4.7 pg/mLNormal4.0-76.1[facility] Hospitalment on above:Result Comment: CUT-OFF POINTS HAVE BEEN ESTABLISHED BASED ON THE FOURTH UNIVERSAL DEFINITIONS OF MYOCARDIAL INFARCTION. THE UPPER REFERENCE LIMIT (URL) OF TROPONIN, DEFINED THE 99TH PERCENTILE OF cTnI DISTRIBUTION IN A REFERENCE POPULATION, HAS BEEN CONFIRMED THE DECISION THRESHOLD FOR KS DIAGNOSIS.Performed By: #### TYLER, BMP #### [facility] [address] [place] [address] Dr. Temi ROBERSON ADMITon 11-88-3058ZH [Catalytic activity/Vol]80 U/L Igdipe35-058QzsCleveland Clinic Marymount HospitalComment on above:Performed By: #### TYLER, BMP #### [facility] [address] [place] [address] Dr. Temi Rock.MB [Mass/Vol]0.66 ng/mLNormal<=3.60[facility] Comment on above:Performed By: #### TYLER, BMP #### [facility] [address] [place] [address] Dr. Temi BurnetteTROP5.6 pg/mLNormal4.0-76.1[facility] HospitalComment on above:Result Comment: CUT-OFF POINTS HAVE BEEN ESTABLISHED BASED ON THE FOURTH UNIVERSAL DEFINITIONS OF MYOCARDIAL INFARCTION. THE UPPER REFERENCE LIMIT (URL) OF TROPONIN, DEFINED THE 99TH PERCENTILE OF cTnI DISTRIBUTION IN A REFERENCE POPULATION, HAS BEEN CONFIRMED THE DECISION THRESHOLD FOR KS DIAGNOSIS.Performed By: #### TYLER, BMP #### [facility] [address] [place] [address] Dr. Temi HendersonO25 ng/bMGyzqda26-32Izt [facility] HealthComment on above: Performed By: #### TYLER, BMP #### [facility] [address] [place] [address] Dr. Temi Ramachandran AUTO DIFFon [id number] #0.1 103/ulNormal0.0-0.1[facility] HospitalComment on above:Performed By: #### CBC #### [facility] [address] [place] [address] Dr. Temi LuxBasophils/100 WBC (Bld)0.7 %Normal0.2-2.0[facility] Comment on above:Performed By: #### CBC #### [facility] [address] [place] [address] Dr. Temi Galvan #0.3 103/ulNormal0.0-0.7The Park[facility] HealthComment on above: Performed By: #### CBC #### [facility] [address] [place] [address] Dr. Tmei Newosinophils/100 WBC (Bld)2.6 %Normal0.9-7.0[facility] Comment on above:Performed By: #### CBC #### [facility] [address] [place] [address] Dr. Temi Newrythrocyte distribution width (RBC) [Ratio]11.7 %Jrbqwh59.0-15.0 The [facility] HealthComment on above:Performed By: #### CBC #### [facility] [address] [place] [address] Dr. Temi LuxHematocrit (Bld) [Volume fraction]41.8 %Critically low42.0-54.0 The [facility] HealthComment on above:Performed By: #### CBC #### [facility] [address] [place] [address] Dr. Temi LuxHemoglobin (Bld) [Mass/Vol]14.3 g/rCErgzxm89.0-18.0[facility] on above:Performed By: #### CBC #### [facility] [address] [place] [address] Dr. Temi Fowler #0.03 10e3/ulNormal0.00-0.03[facility] on above:Performed By: #### CBC #### [facility] [address] [place] [address] Dr. Temi Fowler %0.2 %Normal0.0-0.5[facility] on above: Performed By: #### CBC #### [facility] [address] [place] [address] Dr. Temi MercerH #3.7 103/ulNormal1.2-3.8The [facility] HealthComment on above:Performed By: #### CBC #### [facility] [address] [place] [address] Dr. Temi Daniellemphocytes/100 WBC (Bld)31.0 %Fnimhm06.5-60.0[facility] on above:Performed By: #### CBC #### [facility] [address] [place] [address] Dr. Temi AlfordUAL DIFF REQNONormalThe Parkview HealthComment on above: Performed By: #### CBC #### [facility] [address] [address] [address] Temi Keys (RBC) [Entitic mass]31.2 edVutnne44.9-34.0The Parkview HealthComment on above:Performed By: #### CBC #### [facility] [address] [place] [address] Dr. Temi Keys (RBC) [Mass/Vol]34.2 g/fVPeeikb43.9-35.2The Park[facility] HealthComment on above:Performed By: #### CBC #### [facility] [address] [place] [address] Dr. Temi Keys (RBC) [Entitic vol]91.1 zCIljunu20.0-94.0The [facility] HealthComment on above:Performed By: #### CBC #### [facility] [address] [place] [address] Dr. Temi Zamudio #0.7 103/ulNormal0.3-0.8The [facility] HealthComment on above:Performed By: #### CBC #### [facility] [address] [place] [address] Dr. Temi Pazocytes/100 WBC (Bld)5.4 %Normal1.7-12.0[facility] Comment on above:Performed By: #### CBC #### [facility] [address] [place] [address] Dr. Temi Saha #7.3 103/ulCritically high1.4-6.5[facility] Comment on above:Performed By: #### CBC #### [facility] [address] [place] [address] Dr. Temi Brunoutrophils/100 WBC (Bld)60.1 %Biyihf44.0-75.0The [facility] HealthComment on above:Performed By: #### CBC #### [facility] [address] [place] [address] Dr. Temi Carloslet mean volume (Bld) [Entitic vol]10.1 fLNormal9.5-13.5The [facility] HealthComment on above:Performed By: #### CBC #### [facility] [address] [place] [address] Dr. Temi LuxPLT252 103/ilFuravp542-035Icd [facility] Hospitalment on above: Performed By: #### CBC #### [facility] [address] [place] [address] Dr. Temi LuxRBC4.59 106/ulCritically low4.70-6.10[facility] on above:Performed By: #### CBC #### [facility] [address] [place] [address] Dr. Temi LuxWBC12.1 103/ulCritically high4.0-11.0[facility] on above:Performed By: #### CBC #### [facility] [address] [place] [address] Dr. Temi Clark-DIMERon 65-27-6453I-DIMER<0.19Normal<=0.59[facility] Comment on above:Performed By: #### DDIM #### [facility] [address] [place] [address] Dr. Temi Clark-DIMER COMMENTSSEE [facility] on above:Result Comment: Increases in D-Dimer concentration observed with thromboembolic events [...] stress, and generalized hospitalization. Performed By: #### DDIM #### [facility] [address] [place] [address] Dr. Temi LuxPROF CHEM 8 (BAS METB)on 84-92-9460Hqfvp gap [Moles/Vol]12.4 mmol/LNormalThe [facility] on above:Performed By: #### CMADM, BMP #### [facility] [address] [address] [address] Temi LuxCalcium [Mass/Vol]9.1 mg/dLNormal8.5-10.1[facility] Comment on above:Performed By: #### CMADM, BMP #### [facility] [address] [place] [address] Dr. Temi LuxChloride [Moles/Vol]105 mmol/JWrzzmh85-059Atr [facility] Comment on above:Performed By: #### CMADM, BMP #### [facility] [address] [place] [address] Dr. Temi LuxCO2 [Moles/Vol]25.5 mmol/TPiqron04.0-32.0[facility] Comment on above:Performed By: #### CMADM, BMP #### [facility] [address] [place] [address] Dr. Temi LuxCreatinine [Mass/Vol]1.10 mg/dLNormal0.70-1.30The [facility] HealthComment on above:Performed By: #### CMADM, BMP #### [facility] [address] [place] [address] Dr. Temi NewGFR-AF [place]ONG [place]ER>60Normal>=60The [facility] HealthComment on above:Performed By: #### CMADM, BMP #### [facility] [address] [place] [address] Dr. Temi NewGFR-NON AF [place]ER>60Normal>=60The [facility] HealthComment on above:Performed By: #### CMADM, BMP #### [facility] [address] [place] [address] Dr. Temi LuxGlucose [Mass/Vol]108 mg/dLCritically cfmy75-717Vib [facility] HealthComment on above:Performed By: #### CMADM, BMP #### [facility] [address] [place] [address] Dr. Temi LuxPotassium [Moles/Vol]3.9 mmol/LNormal3.5-5.1[facility] Comment on above:Performed By: #### CMADM, BMP #### [facility] [address] [place], [place] [address] Dr. Temi LuxSodium [Moles/Vol]139 mmol/NCnrmqk664-771BfcC[facility] Clinic [facility] Comment on above:Performed By: #### CMADM, BMP #### [facility] [address] [address] [address] Temi Shane nitrogen [Mass/Vol]23.0 mg/dLCritically high7.0-18.0The [facility] HealthComment on above:Performed By: #### CMADM, BMP #### [facility] [address] [address] [address] Temi Shane nitrogen/Creatinine [Mass ratio]20.9 mg/mgNoBarnesville HospitalComment on above:Performed By: #### CMADM, BMP #### [facility] [address] [address] [address] Temi LuxXR CHEST 2 Von 04-25-9923LA CHEST 2 VEXAM: XR CHEST 2 V HISTORY: Chest pain [...] Electronically authenticated by: BRENTON SALAS Date: 2021-12-16 23:05[facility] (CVDTBH)on 34-34-8150XOWN-CoV-2 (COVID-19) RNA HERBERTH+probe Ql (Unsp spec)Not detectedNormalNOT DETECTEDThe [facility] Comment on above:Result Comment: This test is not yet approved or cleared by the [place] FDA. When there are no FDA-approved or cleared tests available, and other criteria are met, FDA can make tests available under an emergency access mechanism called an Emergency Use Authorization (EUA). The EUA for this test is supported by the Building Maintenance Supervisor of Health and Human Service's (HHS's) declaration that circumstances exist to justify the emergency use of in vitro diagnostics for the detection and/or diagnosis of the virus that causes COVID- 19. This EUA will remain in effect (meaning [...] of clinical signs and symptoms consistent with SARS-CoV-2.Performed By: #### CVDTB #### [facility] [address] [place] [address] Dr. Temi LuxXR hand RT min 3V*on 00-22-8356VN hand RT min 3V*[facility] [employer] Other XR hand RT min 3V*[facility] [employer] Other XR hand RT min 3V*[address] [place] [address] [employer] Other XR hand RT min 3V*Rajesh [place] [address]J[address] [place] [address] [employer] Other XR hand RT min 3V*XRay [facility] [employer] Other XR hand RT min 3V*[facility] [employer] Other XR hand RT min 3V*Patient: Allie Funes MR#: [id number] [employer] Other XR hand RT min 3V*[address] [place] [address] [employer] Other XR hand RT min 3V*: 1990 Acct:[id number] [employer] Other XR hand RT min 3V*Age/Sex: 31 / M ADM Date: 04/12/21 [facility] [employer] Other XR hand RT min 3V*Loc: XDUCLY Room: Type: [facility] Other XR hand RT min 3V*Attending Dr: Mirtha Garza [facility] [employer] Other XR hand RT min 3V*Ordering Provider: MIRTHA GARZAHERMANN [facility] HOSPITALEarth[facility] Other XR hand RT min 3V*Date of Service: 04/12/21[place] [employer] Other XR hand RT min 3V* XR/XR hand RT min 3V*: RIGHT HAND INJURYPlattsburgh [employer] Other XR hand RT min 3V*Copies to: MIRTHA GARZAP-[facility] [employer] Other xr hand RT min 3V*CLINICAL HISTORY: Patient fell yesterday catching himself with right hand on the underground. [employer] Other XR hand RT min 3V*fingers were bent back. Pain and swelling to the second and third distal metacarpals and over [employer] Other XR hand RT min 3V*index and the middle fingers. Old fourth and fifth metacarpal fractures.[email or web address] Other XR hand RT min 3V*XR hand RT min 3V*[email or web address] Other xr hand RT min 3V*COMPARISON: [facility] [employer] Other XR hand RT min 3V*FINDINGS: AP, lateral and oblique views of the right hand were obtained. A small corticalIntheGlo [employer] Other XR hand RT min 3V*fracture is demonstrated at the base of the mid phalanx of the middle finger radially. Old fracturesIntheGlo [employer] Other XR hand RT min 3V*are shown at the fourth and fifth metacarpals. No other significant acute bone or jointNoresearch medical center-[facility] [employer] Other xr hand RT min 3V*abnormalities are noted. Moderate soft tissue swelling is shown at the proximal portions of [employer] Other XR hand RT min 3V*index and middle fingers.[email or web address] Other xr hand RT min 3V* XR/XR hand RT min 3V*[email or web address] Other XR hand RT min 3V*IMPRESSION:[email or web address] Other xr hand RT min 3V*A SMALL CORTICAL FRACTURE AT THE BASE OF THE MID PHALANX OF THE MIDDLE FINGER.[email or web address] Other xr hand RT min 3V*Impression dictated by: Gregory Bhatt M.D.04/12/2021 11:30 [facility] [employer] Other xr hand RT min 3V*Dictation Location: [id number] Other xr hand RT min 3V*Transcribed By: [facility] 04/12/21 1130 [email or web address] Other xr hand RT min 3V*Dictated By: Gregory Bhatt MD 04/12/[address] [place] [address] [employer] Other xr hand RT min 3V*Signed By:[email or web address] Other xr hand RT min 3V*04/12/21 [facility] [employer] Other Vital Signs Date TimeVital SignValuePerforming UiwklyroiGxplkhhl63-86-8380 13:15-0400Body ddaziy067.04 cmPHYSICIAN [facility]05-06-2025 13:15-0400Body mass index (BMI) [Ratio]29.1 kg/b9FNJPLKMZH [facility]05-06-2025 13:15-0400Body bdbsfquzqcs68.6 [degF]PHYSICIAN NO [facility]05-06-2025 13:15-0400Body weight 108.52 kgPHYSICIAN NO [facility]05-06-2025 13:15-0400Diastolic blood hpeeqfpy39 mm[Hg]PHYSICIAN NO [facility]05-06-2025 13:15-0400Heart ohfi055 /minPHYSICIAN NO [facility]05-06-2025 13:15-0400Respiratory rate18 /min PHYSICIAN [facility]05-06-2025 13:15-5016KtI2% (BldA) [Mass fraction]98 %PHYSICIAN [facility] 10-29-2024 13:15-0400Systolic blood mm[Hg]PHYSICIAN [facility]03-17-2025 16:04-0400Body mass index (BMI) [Ratio]30.1 kg/y5VvvusfmiEsme Calderon MD Work Phone: [facility]03-17-2025 16:04-0400Body jccxui231.32 kgEsme Calderon MD Work Phone: [phone]03-17-2025 16:04-0400Diastolic blood mxiqhvrq97 mm[Hg]Esme Calderon MD Work Phone: [facility]03-17-2025 16:04-0400Heart rate97 /min Esme Calderon MD Work Phone: [phone] [facility]25 16:04-4663BsD0% (BldA) [Mass fraction]100 %Esme Calderon MD Work Phone: [phone]03-17-2025 16:04-0400Systolic blood weovevzj385 mm[Hg]Esme Calderon MD Work Phone: [phone]02-06-2025 19:16-0500Diastolic blood iorjqkau84 mm[Hg]PHYSICIAN NO [facility]02-06-2025 19:16-0500Heart rate73 /minPHYSICIAN [facility] 08-01-2024 19:16-0500Respiratory rate21 /minPHYSICIAN [facility]02-06-2025 19:16-2792XxE1% (BldA) [Mass fraction]98 % PHYSICIAN [facility]02-06-2025 19:16-0500 Systolic blood ithlwkrc562 mm[Hg]PHYSICIAN [facility]02-06-2025 18:39-0500Body ophjvk651.04 cmPHYSICIAN [facility]02-06-2025 18:39-0500Body jyneac700 kgPHYSICIAN [facility]02-06-2025 16:50-0500Body ffbyvmzschw00.4 [degF]PHYSICIAN [facility]07-05-2024 12:33-0400 Body vuvvdq700.96 cmPHYSICIAN [facility] 12-29-2023 12:33-0400Body mass index (BMI) [Ratio]30.9 kg/v0VDETLQCGX [facility]07-05-2024 12:33-0400Body .8 [degF]PHYSICIAN [facility]07-05-2024 12:33-0400 Body ovxgvv010.42 kgPHYSICIAN [facility] 12-29-2023 12:33-0400Diastolic blood rmtqukvy24 mm[Hg]PHYSICIAN [facility]07-05-2024 12:33-0400Heart bgci509 /min PHYSICIAN [facility]07-05-2024 12:33-0400 Respiratory rate18 /minPHYSICIAN [facility] 12-29-2023 12:33-2799VhB4% (BldA) [Mass fraction]97 %PHYSICIAN [facility]07-05-2024 12:33-0400Systolic blood ptmpvzan688 mm[Hg]PHYSICIAN [facility]05-08-2024 14:22-0400 Diastolic blood tuqbmbzy77 mm[Hg]Esme Calderon MD Work Phone: [facility]05-08-2024 14:22-0400Systolic blood mothbxah293 mm[Hg]Esme Calderon MD Work Phone: [phone]05-08-2024 14:19-0400Body mass index (BMI) [Ratio]30.48 kg/t6NcregmkiEsme Calderon MD Work Phone: [phone]05-08-2024 14:19-0400Body .68 kgEsme Calderon MD Work Phone: [phone]05-08-2024 14:19-0400Heart rate92 /min Esme Calderon MD Work Phone: [phone]05-08-2024 14:19-6494XmK9% (BldA) [Mass fraction]95 %Esme Calderon MD Work Phone: [phone]04-27-2023 15:28-0400Body oiudmx667.42 kgEsme Calderon MD Work Phone: [phone]04-27-2023 15:28-0400Diastolic blood yfdymurn54 mm[Hg]Esme Calderon MD Work Phone: [phone]04-27-2023 15:28-0400Heart rate88 /min Esme Calderon MD Work Phone: [phone]04-27-2023 15:28-0265YkS1% (BldA) [Mass fraction]98 %Esme Calderon MD Work Phone: [phone]04-27-2023 15:28-0400Systolic blood gpaydfyh452 mm[Hg]Esme Calderon MD Work Phone: [phone]04-27-2023 09:06-0400Body ylqvmy164 cm Mri (I-Stat/1.5t) Work Phone: [phone]04-27-2023 09:06-0400Body yzskxn486.42 kgMri (I-Stat/1.5t) Work Phone: [facility] [phone] 09:06-0400Diastolic blood ybdcdwka35 mm[Hg]Mri (I-Stat/1.5t) Work Phone: [facility]04-27-2023 09:06-0400Heart rate97 /min Mri (I-Stat/1.5t) Work Phone: [facility] Fzdkpm10-33-1842 09:06-0400Systolic blood nukadbdq589 mm[Hg]Mri (I-Stat/1.5t) Work Phone: [employer] [phone] 11:25-0400Body .69 cmSchuck Garza Other [employer] Other 10-18-2021 11:25-0400Body mass index (BMI) [Ratio]28.5 kg/m9KoijbkeucMirtha Garza Other [employer] Other 10-18-2021 11:25-0400Body zjkfavrtgra94.6 [degF] Mirtha Garza Other [employer] Other 10-18-2021 11:25-0400Body zskwul76.34 kgStdianne Garza Other [employer] Other 10-18-2021 11:25-0400Diastolic blood suaxbcbo12 mm[Hg] Mirtha Garza Other [employer] Other 10-18-2021 11:25-0400Respiratory rate18 /minSchuck Garza Other [employer] Other 10-18-2021 11:25-9590TbE1% (BldA) [Mass fraction]99 % Mirtha Garza Other [employer] Other 10-18-2021 11:25-0400Systolic blood awmpyfwr826 mm[Hg] Mirtha Garza Other [place] [employer] Other Encounters Encounter DateEncounter TypeCare ProviderFacilityStart: 93-08-7628gyedqnvuilGwlc L SchwabFacility:[place] [facility] [place]Start: 04-15-2025 End: 38-63-3098spkjgbufuhNwqt L SchwabFacility:[place] BellevueStart: 04-07-2025 ambulatoryJodi SchwabFacility:[place] BellevueStart: 04-03-2025 End: 18-08-4258wfaflwtfopUxyapj X OrzechFacility:EU ueStart: 04-03-2025 End: 96-02-2827Ejccijo encounter procedureAurora X Orzech [facility] start: 01-30-2025 End: 10-43-4378jqvosmofnpQmnffgz R WATERSFacility:EU [place]vueStart: 01-30-2025 End: 25-17-7183Jadaaaq encounter procedurePatrickali WALDROP [facility] start: 96-43-1546keiewhwnmcEpkp SchwabFacility:EU [place]Start: 10-29-2024 End: 29-86-1664uethbnwndcSQVSWATJS NO [facility] Work Phone: Start: 10-29-2024 End: 31-34-8024Eeephpq encounter procedurePHYSICIAN NO [facility] Mike Work Phone: Start: 10-10-2024 End: 48-91-3628CxzoiuMqohuzok Fuchs MD Work Phone: CardiologyComment on above:Refill RequestStart: 09-09-2024 End: 65-47-9728xzsnkbomtmNLZTEZOJ FUCHSFacility:[facility]tart: 09-09-2024 End: 76-35-1517Okgxask encounter procedureEsme Calderon MD Work Phone: CardiologyComment on above:Dysplastic tricuspid valve (Primary Dx); S/P tricuspid valve repair; Primary hypertensionStart: 09-09-2024 End: 37-28-6529nbmufveejiXNVMTWMS FUCHSFacility:[facility] Hospitaltart: 08-01-2024 End: 85-30-5867Hucmnpjsz department patient visitPHYSICIAN NO [facility] Work Phone: Start: 07-29-2024 End: 85-53-4177Qzfgvtmii encounterJohnna Mitchell APRN-[facility] Work Phone: [facility] MedicineStart: 63-65-1326Vjd-patient / Non-visitPHYSICIAN NO [facility] Work Phone: Start: 06-17-2024 End: 80-07-9516Nvjabldnm encounterEsme Calderon MD Work Phone: CardiologyComment on above:Patient QuestionStart: 12-29-2023 End: 47-40-1462oqcuqovtuuVUNRDLZZZ NO [facility] Work Phone: Start: 12-29-2023 End: 19-27-8846Aqhrksk encounter procedurePHYSICIAN NO [facility] Mike Work Phone: Start: 11-01-2023 End: 27-14-3508ynzgdbuvujKLAPSHGP FUCHSFacility:[facility] Hospitaltart: 11-01-2023 End: 37-54-8509Zvsaukm encounter procedureEsme Calderon MD Work Phone: CardiologyComment on above:Dysplastic tricuspid valve (Primary Dx); S/P tricuspid valve repair; Primary hypertension; Obesity, Class I, BMI 30-34.9Start: 11-01-2023 End: 81-25-6693oauhujtaoeQHEMGTSJ FUCHSFacility:[facility] Hospitaltart: 11-01-2023 End: 33-02-8844zuiutksvkfEUIYSMET FUCHSFacility:[facility] Hospitaltart: 10-20-2022 End: 38-37-2636Qmdmvb OnlyBernadette Oakes MD Work Phone: cardiologyComment on above:Cardiomyopathy, unspecified type (HCC)Dysplastic tricuspid valve (Primary Dx)Dysplastic tricuspid valve [Q24.8]Dysplastic tricuspid valve (Primary Dx); S/P tricuspid valve repairStart: 88-94-2174Vvknen OnlyEsme Calderon MD Work Phone: CardiologyComment on above:Dysplastic tricuspid valve (Primary Dx)Start: 69-69-8707Gnoljyinz encounterAlley Gonzalez MD Work Phone: CardiologyComment on above:AppointmentStart: 06-27-2022 End: 78-76-4445rxgnpahuwkDY CHARLES HOUSEFacility:V3Qvxvr: 64-98-4286Idtdpj Only Esme Calderon MD Work Phone: CardiologyComment on above:S/P tricuspid valve repair (Primary Dx)Start: 01-04-2022 End: 38-21-8711qjfhupuaoeWV CHARLES HOUSEFacility:L3Aycxd: 12-16-2021 End: 06-54-2033wtlgahkjxaJZ CHARLES HOUSEFacility:O5Pimbv: 08-20-2021 End: 40-01-0371mhiiprrxjaWR [place]LES [place]ENTRAL CITYFacility:F8Ozobo: 15-46-8682Zfynxf outpatient visit 15 minutesStephanie KaylaMA[facility] Procedures DateProcedureProcedure DetailPerforming ClinicianStart: 96-35-7263Qjsdm chest X-rayPHYSICIAN NO FAMILYStart: 57-74-6262FU angiography of thoraxPHYSICIAN NO FAMILYStart: 40-74-6530Mcbohklkrzn Panel (PCR)PHYSICIAN NO FAMILYStart: 01-41-0183Einzs X-ray of right forearmPHYSICIAN NO FAMILYStart: 52-93-2813Eynza X-ray of right handPHYSICIAN NO FAMILYStart: 45-50-3584Wbnotkl mri for velocity flow mappingEsme Calderon MD Work Phone: [facility] surgeryNew [place] Repair of heart valveNew [place] WAL[place] Plan of Treatment DateCare ActivityDetailAuthorStart: 09-12-2025 End: 64-97-6348Zgabc metabolic 2000 panel - Serum or PlasmaBASIC METABOLIC PANEL Lab Routine Dysplastic tricuspid valve Expected: 09/12/2025, Expires: 12/13/19 26[facility] HospitalComment on above:Expected: 09/12/2025, Expires: 12/12/2025 Start: 09-12-2025 End: 25-45-5016KPP panel - Blood by Automated countCOMPLETE BLOOD COUNT Lab Routine Dysplastic tricuspid valve Expected: 09/12/2025, Expires: 12/12/2025 [facility] Work Phone: Comment on above:Expected: 09/12/2025, Expires: 12/12/2025Start: 09-12-2025 End: 43-81-0674Pirtdtpuwtl peptide.B prohormone N-Terminal [Mass/volume] in Serum or PlasmaNT PRO BNP Lab Routine Dysplastic tricuspid valve Expected: 09/12/2025, Expires: 12/12/2025[facility] ClinicComment on above:Expected: 09/12/2025, Expires: 12/12/2025Start: 11-04-2024 End: 93-76-9430EUI panel - Blood by Automated countCOMPLETE BLOOD COUNT Lab Routine Dysplastic tricuspid valve Expected: 11/04/2024, Expires: 02/03/2025 [facility] HospitalComment on above:Expected: 11/04/2024, Expires: 02/03/2025Start: 11-04-2024 End: 75-99-7796Firkzqpmhckzp metabolic 2000 panel - Serum or PlasmaCOMPREHENSIVE METABOLIC PANEL Lab Routine Dysplastic tricuspid valve Expected: 11/04/2024, Expires:02/03/2025[facility] Work Phone: Comment on above:Expected: 11/04/2024, Expires: 02/03/2025Start: 11-04-2024 End: 46-95-6393Ccedc 1996 panel - Serum or PlasmaLIPID PANEL BASIC Lab Routine Dysplastic tricuspid valve Expected: 11/04/2024, Expires: 02/03/2025[facility] HospitalComment on above:Expected: 11/04/2024, Expires: 02/03/2025Start: 01-97-0291Ygews-19 Vaccine ()Covid-19 Vaccine ()[facility]: 90-02-4198Btzblvqjx vaccinationVan [facility] Hospital Start: 10-25-2023 End: 85-17-8239ZLV panel - Blood by Automated countCBC Lab Routine Dysplastic tricuspid valve Expected: 10/25/2023, Expires: 12/25/2023[facility] Work Phone: Comment on above:Expected: 10/25/2023, Expires: 12/25/2023Start: 10-25-2023 End: 71-56-3697Vrnwswluvwdyd metabolic 2000 panel - Serum or PlasmaCOMP METABOLIC PANEL Lab Routine Dysplastic tricuspid valve Expected: 10/25/2023, Expires: 12/25/2023[facility] Work Phone: Comment on above:Expected: 10/25/2023, Expires: 12/25/2023Start: 80-25-8341AUN COMPLETEECG COMPLETE ECG Routine Dysplastic tricuspid valve Expected: 10/25/2023[facility] Work Phone: Comment on above:Expected: 10/25/2023Start: 10-25-2023 ECHO SPECIALIST COMPLEX ADULT CONGENITALECHO SPECIALIST COMPLEX ADULT CONGENITAL Cardiology Routine Dysplastic tricuspid valve Expected: 10/25/2023[facility] Work Phone: Comment on above:Expected: 10/25/2023Start: 10-25-2023 EXERCISE STRESS ECG METABOLIC (WITHOUT IMAGING)EXERCISE STRESS ECG METABOLIC (WITHOUT IMAGING) Cardiology Routine Dysplastic tricuspid valve Expected: [address] [place] [address] Work Phone: Comment on above:Expected: 10/25/2023Start: 10-25-2023 End: 87-75-1272ESXGQ PANEL, NONFASTINGLIPID PANEL, NONFASTING Lab Routine Dysplastic tricuspid valve Expected: 10/25/2023, Expires: 12/25/2023[facility] Work Phone: Comment on above:Expected: 10/25/2023, Expires: 12/25/2023Start: 10-25-2023 End: 41-54-6436Rxfxznkhrym peptide.B prohormone N-Terminal [Mass/volume] in Serum or PlasmaNT PRO BNP Lab Routine Dysplastic tricuspid valve Expected: 10/25/2023, Expires: 12/25/2023[facility] Work Phone: Comment on above:Expected: 10/25/2023, Expires: 12/25/2023Start: 12-75-1185Ittjwoquwb Health ScreeningBehavioral Health ScreeningCleChildren's Hospital for Rehabilitationtart: 26-86-1117Xdzrw-19 Vaccine ( season) Covid-19 Vaccine ( season)[facility]: 50-45-8285Yejdaiksk vaccinationINFLUENZA (Season Ended)[facility]: 32-80-7616SVWJARWEYM ASSESSMENTDEPRESSION ASSESSMENTCleChildren's Hospital for Rehabilitationtart: 93-33-5118Iffkfuztp vaccinationINFLUENZA (#1)[facility]: 29-74-5670ZWPIJASYCK ASSESSMENT DEPRESSION ASSESSMENTCleveland Clinic [facility] Generaltart: 60-13-8534NRhP,Tdap and Td Vaccines (1 - Tdap)DTaP,Tdap and Td Vaccines (1 - Tdap)[facility] SystemStart: 00-77-0670Hngasijhw B Vaccine (1 of 3 - 19+ 3-dose series)Hepatitis B Vaccine (1 of 3 - 19+ 3-dose series)[facility]: 26-31-8189Vdiul microalbumin profileCleveland Clinic [facility] Generaltart: 62-22-1496Zoktx BMI ScreeningAdult BMI Screening [facility]: 12-13-1114OUXREZ PCP TEAM CHRONIC DISEASE VISIT ANNUAL PCP TEAM CHRONIC DISEASE VISITCleveland Clinic Akron Generaltart: 68-87-9528Mjlgivk ScreeningAnxiety ScreeningCleveland Clinic [facility] Generaltart: 54-87-3243TA CONTROLLED (<130/80)BP CONTROLLED (<130/80)[facility]: 66-49-0523Jyfznogcij ScreeningDepression ScreeningCleveland Clinic [facility] Generaltart: 13-05-1607NVJVBRGEP C SCREENINGHEPATITIS C SCREENINGCleveland Clinic [facility] Generaltart: 54-08-3123Bwmebhfxy C screeningHepatitis C ScreeningCleveland Clinic [facility] Generaltart: 84-04-3523KDF SCREENINGHIV SCREENINGC[facility] Clinic [facility] Generaltart: 27-76-9046MZH screeningHIV ScreeningCleveland Clinic [facility] Generaltart: 23-73-6319Sdbynecqan ScreeningDepression ScreeningECU Health [facility]combe Hospitaltart: 41-32-8692Lvlneox ScreeningTobacco ScreeningParkview Health [facility] Hospital Start: 39-11-7413MFLLUPNLGXKT (1 - PCV)PNEUMOCOCCAL (1 - PCV)[facility] Start: 94-35-9202SQOZD-19 VACCINE (#1)COVID-19 VACCINE (#1)[facility] Start: 47-56-3487WIKIGYDSP B (1 of 3 - 3-dose series)HEPATITIS B (1 of 3 - 3- dose series)[facility] End: 69-18-3428HVW COMPLETEECG COMPLETE ECG Routine S/P tricuspid valve repair 1 Occurrences starting 05/30/2022 until 3[facility] Work Phone: Comment on above:1 Occurrences starting 05/30/2022 until 05/30/2023 End: 12-19-8484LYB COMPLETEECG COMPLETE ECG Routine Dysplastic tricuspid valve 1 Occurrences starting 11/05/2023 until 5[facility] ClinicComment on above:1 Occurrences starting 11/05/2023 until 11/04/2024 End: 22-64-3180IRB COMPLETEECG COMPLETE ECG Routine Dysplastic tricuspid valve 1 Occurrences starting 09/12/2024 until 6[facility] ClinicComment on above:1 Occurrences starting 09/12/2024 until 09/12/2025 End: 50-40-0247SWTM SPECIALIST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 Date Resolved ClhkVpnzruw37Congenital anomaly of heart10/16/2008 08/01/20169566Bcimoauqcben91///2008Ebstein's eyopizl3104/15/2005 10/16/2008documented as of this encounter (statuses as of 10/21/2022) [facility]02-04-2017 History of Past illness Narrative* ProblemNoted Date Resolved GqjzHcnpluv34Congenital anomaly of heart10/16/2008 08/01/20164305Dcoieewcjzhj15//Ebstein's fjygudi1204/15/2005 10/16/2008documented as of this encounter (statuses as of 10/25/2022) [facility] + Plan note No data available for this section [facility] evaluation note* Diagnosis S/P tricuspid valve repair- Primary Other postprocedural status documented in this encounter [facility] note* 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 documented in this encounter [facility] note* Diagnosis Cardiomyopathy, unspecified type (HCC) documented in this encounter [facility] note* 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 documented [facility] this encounter [facility]* Diagnosis Dysplastic tricuspid valve Other specified congenital anomaly of heart Cardiomyopathy, unspecified type (HCC) documented in this encounter [facility]* 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 tricuspid valve repair Other postprocedural status documented in this encounter [facility]* 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 tricuspid valve repair Other postprocedural status Primary hypertension Unspecified essential hypertension Obesity, Class I, BMI 30-34.9 Obesity, unspecified documented in this encounter [facility] [place] noteNo assessment information availableAdena Health System Work Phone: Evaluation note* Diagnosis Onset Date Resolution Status Contusion of hand, right acute [facility] Work Phone: Evaluation note* 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 tricuspid valve repair Other postprocedural status Primary hypertension Unspecified essential hypertension documented in this encounter [facility] general Narrative - Reported* Type Description Date Medical History triscupid valve leaks Medical HistoryhtnSurgical HistoryappendectomySurgical Historyheart valve Hospitalization Historysee above surg [facility] [employer] Other Hospital Discharge instructions Additional Instructions Follow-up with your primary care doctor and the patient placement coordinator provided Return to ED if develop worsening symptoms or concernsL[facility] Work Phone: InstructionsNot on filedocumented in this encounter [facility] No data available for this section [facility] reason for referral (narrative)* Outpatient Procedure (Routine) - Pending ReviewSpecialtyDiagnoses / ProceduresReferred By Contact Referred To [facility] Diagnoses S/P tricuspid valve repair Procedures ECHO ECHO TTHRC R-T 2D W/WOM-MODE COMPL SPEC&COLR Esme Hernandez MD [address] [place] [address] Formerly Named [facility] Vascular [address] [place] [address] Referral IDStatusMakenzieasonStart DateExpiration DateVisits RequestedVisits [id number] Review Auto-Generated Referral * Outpatient Procedure (Routine) - AuthorizedSpecialtyDiagnoses / Procedures Referred By ContactReferred To [facility] Diagnoses S/P tricuspid valve repair Procedures ECG COMPLETE ECG ROUTINE ECG W/LEAST 12 LDS W/I&R Esme Calderon MD [address] [facility] [place] [address] Formerly Named [facility] [place] [address] Referral IDStatMlasonStceresco DateExpiration DateVisits RequestedVisits [id number] Auto-Generated Referral [facility] for referral (narrative)* Outpatient Procedure (Routine) - Pending ReviewSpecialtyDiagnoses / ProceduresReferred By ContactReferred To [facility] Diagnoses Dysplastic tricuspid valve Procedures ECHO ECHO TTHRC R-T 2D W/WOM-MODE COMPL SPEC&Esme Hawk MD [address] [place] [address] [place] [address] Referral IDStatusReasonStceresco DateExpiration DateVisits RequestedVisits [id number] Review Auto-Generated Referral [facility] for referral (narrative)* Outpatient Procedure (Routine) - Pending ReviewSpecialtyDiagnoses / ProceduresReferred By ContactReferred To [facility] Diagnoses Dysplastic tricuspid valve Procedures ECG COMPLETE ECG ROUTINE ECG W/LEAST 12 LDS W/I&R Esme Calderon MD [address] [place] [address] [place] [address] Referral IDStatusMakenzieVeterans Affairs [facility] DateExpiration DateVisits RequestedVisits [id number] Review Auto-Generated Referral / * Outpatient Procedure (Routine) - Pending ReviewSpecialtyDiagnoses / Procedures Referred By ContactReferred To [facility] Diagnoses Dysplastic tricuspid valve Procedures ECHO SPECIALIST COMPLEX ADULT CONGENITAL ECHO TTHRC R-T 2D W/WOM-MODE COMPL Esme Guerra MD [address] [place] [address] [place] [address] Referral IDStatusMakenzieasonStart DateExpiration DateVisits RequestedVisits [id number] Review Auto-Generated Referral / [facility] for referral (narrative)* Outpatient Procedure (Routine) - Pending ReviewSpecialtyDiagnoses / ProceduresReferred By ContactReferred To [facility] Diagnoses Dysplastic tricuspid valve Procedures ECHO SPECIALIST COMPLEX ADULT CONGENITAL ECHO TTHRC R-T 2D W/WOM-MODE COMPL SPEC&COLR D Esme Calderon MD [address] [place] [address] [place] [address] Referral IDStastephanieusBradfordJoshua Tree DateExpiration DateVisits RequestedVisits [id number] Review Auto-Generated Referral * Outpatient Procedure (Routine) - Pending ReviewSpecialtyDiagnoses / Procedures Referred By ContactReferred To [facility] Diagnoses Dysplastic tricuspid valve Procedures ECG COMPLETE ECG ROUTINE ECG W/LEAST 12 LDS W/I&R Esme Calderon MD [address] [place] [address] [place] [address] Referral IDStastephanieusBradfordjerel DateExpiration DateVisits RequestedVisits [id number] Review Auto-Generated Referral * Transition of Care (Routine) - Ref Not RequiredSpecialtyDiagnoses / Procedures Referred By ContactReferred To [facility] Procedures CARDIOVASCULAR MEDICINE OP FOLLOW UP APPT Esme Argueta MD [address] [place] [address] [place] [address] Referral IDStatusBradfordJoshua Tree DateExpiration DateVisits RequestedVisits [id number] Not Required PCP Requested Referral / * Outpatient Procedure (Routine) - ClosedSpecialtyDiagnoses / ProceduresReferred By ContactReferred To [facility] [place] Diagnoses Dysplastic tricuspid valve Procedures ECHO SPECIALIST COMPLEX ADULT CONGENITAL ECHO TTHRC R-T 2D W/WOM-MODE COMPL SPEC&COLR D Esme Calderon MD [address] [place] [address] [place] [address] Referral IDStatusBradfordJoshua Tree DateExpiration DateVisits RequestedVisits [id number] Auto-Generated [facility]erral [facility] Narrative* Transition of Care (Routine) - ClosedSpecialtyDiagnoses / ProceduresReferred By ContactReferred To Contact [facility] Procedures CARDIOVASCULAR MEDICINE OP FOLLOW UP APPT ORDER Esme Calderon MD [address] [place] [id number] Phone: tel: fax: [place] [phone] Referral IDStatusBradfordJoshua Tree DateExpiration DateVisits RequestedVisits [id number] PCP Requested Referral / [facility] Summary Purpose Family History No Family [...] April 17, 2021 1:01pm Reason for Referral SpecialtyDiagnoses / ProceduresReferred By ContactReferred To ContactMR IMAGING Diagnoses Dysplastic tricuspid valve Procedures MRA CHEST CARDIOVASCULAR WO IVCON MRA CHEST WITH OR W/O CONT Esme Calderon MD [address] [place] [address] Mr Imaging Referral IDStatusReasonStart DateExpiration DateVisits RequestedVisits [id number] Auto-Generated Referral [id number] / ProceduresReferred By ContactReferred To ContactMR IMAGING Diagnoses Cardiomyopathy, unspecified type (HCC) Procedures MRI CARDIAC MORPH FUNC WO IVCON CARDIAC MRI MORPHOLOGY & FUNCTION W/O CONTRAST Esme Calderon MD [address] [place] [address] Mr Imaging Referral IDStatusReasonStart DateExpiration DateVisits RequestedVisits [id number] Auto-Generated Referral Chief Complaint and Reason for Visit Chief Complaint Right hand pain with injury Chief Complaint Right hand pain with injury S59.911AReason for VisitContusion of hand, right Chief Complaint Admit Date cp going into left arm-high bp August 01, 2024 4:25pm Chief Complaint Admit Date cp going into left arm-high bp August 01, 2024 4:25pm right shoulder/arm pain October 29, 2024 1: 09pm Additional Source Comments REASON FOR VISIT (unrecogniz ed section and content) ReasonCommentsAppointmentSpecialtyDiagnoses / ProceduresReferred By Contact [facility] Dysplastic tricuspid valve Procedures MRI CARDIAC MORPH FUNC WO/W IVCON CARDIAC MRI W/WO CONTRAST & FURTHER SEQ Emse Calderon MD [address] [place] [address] Mr Imaging Referral IDStatusReasonStart DateExpiration DateVisits RequestedVisits [id number] Auto-Generated Referral [id number] clinicalReasonCommentsPatient QuestionReason CommentsRefill Request Source Comments (unrecognize d section and content) In the event this informatio n is protected by the Federal Confidentiality of Alcohol and Drug Abuse Patient Records regulations: The Federal rules restrict any use of the information to criminally investigate or prosecute any alcohol or drug abuse patient.[facility] HospitalIn the event this information is protected by the Federal Confidentiality of Alcohol and Drug Abuse Patient Records regulations: The Federal rules restrict any use of the information to criminally investigate or prosecute any alcohol or drug abuse patient.[facility] HospitalIn the event this information is protected by the Federal Confidentiality of Alcohol and Drug Abuse Patient Records regulations: The Federal rules restrict any use of the information to criminally investigate or prosecute any alcohol or drug abuse patient.[facility] HospitalIn the event this information is protected by the Federal Confidentiality of Alcohol and Drug Abuse Patient Records regulations: The Federal rules restrict any use of the information to criminally investigate or prosecute any alcohol or drug abuse patient.[facility] HospitalIn the event this information is protected by the Federal Confidentiality of Alcohol and Drug Abuse Patient Records regulations: The Federal rules restrict any use of the information to criminally investigate or prosecute any alcohol or drug abuse patient.[facility] HospitalIn the event this information is protected by the Federal Confidentiality of Alcohol and Drug Abuse Patient Records regulations: The Federal rules restrict any use of the information to criminally investigate or prosecute any alcohol or drug abuse patient.[facility] HospitalIn the event this information is protected by the Federal Confidentiality of Alcohol and Drug Abuse Patient Records regulations: The Federal rules restrict any use of the information to criminally investigate or prosecute any alcohol or drug abuse patient.[facility] HospitalIn the event this information is protected by the Federal Confidentiality of Alcohol and Drug Abuse Patient Records regulations: The Federal rules restrict any use of the information to criminally investigate or prosecute any alcohol or drug abuse patient.[facility] HospitalIn the event this information is protected by the Federal Confidentiality of Alcohol and Drug Abuse Patient Records regulations: The Federal rules restrict any use of the information to criminally investigate or prosecute any alcohol or drug abuse patient.[facility] HospitalIn the event this information is protected by the Federal Confidentiality of Alcohol and Drug Abuse Patient Records regulations: The Federal rules restrict any use of the information to criminally investigate or prosecute any alcohol or drug abuse patient.[facility] HospitalIn the event this information is protected by the Federal Confidentiality of Alcohol and Drug Abuse Patient Records regulations: The Federal rules restrict any use of the information to criminally investigate or prosecute any alcohol or drug abuse patient.[facility] Care Teams (unrecognized sec tion and content) Team Status: Active Member Role Status Dates PHYSICIAN NO FAMILY Primary Care Provider Active Team Status: Inactive Member Role Status Dates PHYSICIAN NO FAMILY Primary Care Provider Active Start: August 01, 2024 End: August 01, 2024Jared M Skye , DOEmergency ProviderActiveStart: August 01, 2024 End: August 01, 2024 Team Status: Inactive Member Role Status Dates PHYSICIAN NO FAMILY Primary Care Provider Active Start: October 29, 2024 End: October 29Maki Perales ProviderActiveStart: October 29, 2024 End: October 29, 2024 Team Status: Active Member Role Status Dates PHYSICIAN NO FAMILY Primary Care Provider Active Start: June 18, 2024 Shelbie Pastrana ProviderActiveStart: June 18, [address] [facility] [address] [place] [address] PCP - GeneralFamily Medicine10/15/20 Esme Calderon MD [address] [place] [address] Primary Staff PhysicianCardiology08/18/21Team MemberRelationshipSpecialtyStart [facility] Carlos Richard [facility] [address] [place] [address] PCP - GeneralFamily Medicine10/15/20 Esme Calderon MD [address] [place] [address] Primary Staff PhysicianCardiology08/18/21Team MemberRelationshipSpecialtyStart [facility] Carlos Wilhelmip [facility] [address] [place] [address] PCP - GeneralFamily Medicine10/15/20 Esme Calderon MD [address] [place] [address] Primary Staff PhysicianCardiology08/18/21Team MemberRelationshipSpecialtyStart [facility] Carlos Richard [facility] [address] [place] [address] PCP - GeneralFamily Medicine10/15/20 Esme Calderon MD [address] [place] [address] Primary Staff PhysicianCardiology08/18/21Team MemberRelationshipSpecialtyStart Carlos Fletcher Sr. [address] [place] [address] PCP - GeneralFamily Medicine10/15/20 Esme Calderon MD [address] [place] [address] Primary Staff PhysicianCardiology08/18/21Team MemberRelationshipSpecialtyStart Carlos Fletcher Sr. [address] [place] [address] PCP - GeneralFamily Medicine10/15/20 Esme Calderon MD [address] [place] [address] Primary Staff PhysicianCardiology08/18/21Team MemberRelationshipSpecialtyStart DateCarlos White Sr. [address] [place] [address] PCP - GeneralFamily Medicine10/15/20 Esme Calderon MD [address] [place] [address] Primary Staff PhysicianCardiology08/18/21Team MemberRelationshipSpecialtyStart Carlos Fletcher Sr., DO PCP - GeneralFamily Medicine10/15/20 Esme Calderon MD [address] [place] [address] Primary Staff PhysicianCardiology08/18/21 Team Status: Inactive Member Role Status Dates PHYSICIAN NO FAMILY Primary Care Provider Active Start: December 29, 2023 End: December 28manda Joslyn Rusty , APRNAttenyomaira ProviderActiveStart: December 29, 2023 End: December 29, 2023 Team Status: Active Member Role Status Dates PHYSICIAN NO FAMILY Primary Care Provider Active Start: December 29, 2023 Teresa M Rusty , APRNAttending ProviderActiveStart: December 29, 2023 Team MemberRelationshipSpecialtyStart DateEnd Date Carlos Arceo Sr., DO PCP - GeneralFamily Medicine10/15/20 Esme Calderon MD [address] [place] [address] Primary Staff PhysicianCardiology08/18/21Team MemberRelationshipSpecialtyStart DateEnd Date No Pcp, [place] [address] PCP - GeneralFamily Hkrgcdza33/23/18Team MemberRelationshipSpecialtyStart Date End Date Carlos Arceo Sr., DO PCP - GeneralFamily Medicine Esme Calderon MD [address] [place] [address] Primary Staff PhysicianCardiology08/18/21Team MemberRelationshipSpecialtyStart DateEnd Date Esme Calderon MD [address] [place] [address] Primary Staff PhysicianCardiology08/18/21 (unrecognized sect ion and content) No Status Records FoundNo Status Records FoundNo Status Records FoundNo Status Records Found INFORMATION SOURCE (unrecogn ized section and content) DATE CREATED AUTHOR 06/28/2022 [facility] DATE CREATED AUTHOR AUTHOR'S ORGANIZ ATION 08/14/2024 [facility] DATE CREATED AUTHOR AUTHOR'S ORGANIZ ATION 10/10/2024 [facility] DATE CREATED AUTHOR AUTHOR'S ORGANIZ ATION 04/17/2025 [facility] Goals (unrecognized section and content) Goals [...] BE BASED ON THE PRIMARY CLINICAL RECORDS. [facility]. provides no warranty or guarantee of the accuracy or completeness of information in this document.
--- OUTSIDE RECORDS SUMMARY | 2025-05-08 22:15 | XMS_ITS | Clinical Summary ---
Author Organization [facility] Address [address] [place] [address] Care Team Providers Care Site Auditor Name Role Phone Phys, Self-Refer Or No Pcp/Referring Primary Car e Provider Unavailable Social History Tobacco UseTypesPacks/DayYears UsedDateSmoking Tobacco: Never AssessedSex and Gender InformationValueDate RecordedSex Assigned at BirthNot on fileLegal Sex Male03/28/2016 9:22 AM EDTGender IdentityNot on fileSexual OrientationNot on file Plan of Treatment Health MaintenanceDue DateLast DoneCommentsHepatitis C Gruvxxulb1990 DTaP,Tdap,and Td Vaccines (1 - Tdap)2009Hepatitis B Vaccine ages 19 years and older (1 of 3 - 19+ 3-dose series)2009COVID-19 Vaccine ( - season)2025Influenza Vaccine (#1)2025Respiratory Syncytial Virus (RSV) or ages 60 years and older (1 - 1-dose 75+ series)2065 Pneumococcal CombinedAged OutNo longer eligible based on patient's age to complete this topicRespiratory Syncytial Virus (RSV) ages 0 thru 19 monthsAged OutNo longer eligible based on patient's age to complete this topic Care Teams Team MemberRelationshipSpecialtyStart DateEnd Date Phys, Self-Refer Or No Pcp/Referring PCP - Gfgnqhn72/18/16
--- OUTSIDE RECORDS SUMMARY | 2025-05-08 22:15 | XMS_ITS | Clinical Summary ---
Author Organization [facility] Healthcare Address [address] [place] [address] Care Team Providers Care Forder Operator Name Role Phone Unavailable Primary Care Provider Unavailabl e Social History Tobacco UseTypesPacks/DayYears UsedDateSmoking Tobacco: Never AssessedSex and Gender InformationValueDate RecordedSex Assigned at BirthNot on fileLegal Sex Male09/07/2022 7:10 PM EDTGender IdentityNot on fileSexual OrientationNot on file Last Filed Vital Signs Vital SignReadingTime TakenCommentsBlood Usvnzlvl660/7203 12:00 PM EDT Pulse--Temperature--Respiratory Rate--Oxygen Saturation--Inhaled Oxygen Concentration--Xwqpaa15.9 kg (218 lb)04/14/2021 12:00 PM YQJMybyxx030 cm (6' 2 ) 04/14/2021 12:00 PM EDTBody Mass Index27.9904/14/2021 12:00 PM EDT Plan of Treatment Not on file Insurance
[2025-05-08 22:33] LABS: Anion Gap 11.3; Blood Urea Nitrogen 17.0 mg/dL (7.0-18.0); Calcium 9.3 mg/dL (8.5-10.1); Carbon Dioxide 26.3 mmol/L (21.0-32.0); Chloride 105 mmol/L (98-107); Estimated GFR (African America >60 (>=60 mL/min/1.73m^2); Estimated GFR (Non-African Ame >60 (>=60 mL/min/1.73m^2); Glucose 95 mg/dL (74-106); Potassium 3.6 mmol/L (3.5-5.1); Sodium 139 mmol/L (136-145)
[2025-05-08] MEDS: KETOROLAC TROMETHAMINE 30 MG/ML VIAL IVP (23:11)
--- NOTE | 2025-05-08 23:20 | PC.NURSE ---
i gave this patient verbal and written discharge orders and this patient voices yes to understanding these. at time of discharge this patient voices no concerns, needs and shows no sins of distress
== END 2025-05-08 23:19 | disposition home or self-care (01) ==
PROVIDERS: Emergency Provider Emergency Medicine
DX: R07.89 Other chest pain (principal)
CPT/HCPCS: 36415; 71045; 80048; 84484; 85025; 93005; 96374; 99285; J1885

== ENCOUNTER 2025-06-01 12:54 | Outpatient (OUT) | payer OTHER, SELFPAY ==
--- OUTSIDE RECORDS SUMMARY | 2013-09-19 08:00 | XMS_ITS | Continuity of Care Document ---
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 Name Role Phone Garrett LEIVA , September Unavailable Unavailable Allergies, Adverse Reactions, Alerts Substance Reaction Status Criticality penicillin G Active No Information Medications Medication Instructions Dosage Effective Dates (start - stop) Status Comments [place] 5 mg-325 mg tablet take 1 tablet by oral route every 6 hours as needed for pain - No Longer Active Motrin 800 mg tablet take 1 tablet (800MG) by oral route every 8 hours with food 800 MG - No Longer Active Procedures Procedure Date Extract; Erupted Th/exposted Rt 014 Intraoral-periapical 1st Film 3 Extract; Erupted Th/exposted Rt 013 Limited Oral Eval Advance Directives Directive Yes / No Effective Date File Name Resuscitation Not Answered N/A N/A Life Support Not Answered N/A N/A Intubation Not Answered N/A N/A Antibiotics Not Answered N/A N/A IV Fluid Support Not Answered N/A N/A Tube Feed Not Answered N/A N/A Other Directive N/A N/A WARNING:The information contained in this section is historical and is provided for information only and does not constitute a legal document or any assurance that the information is still accurate. Please verify the information with the rojo of the legal document before using it for clinical purposes. Encounters Encounter Description Practice Location Reason(s) For Visit Diagnoses Date Provider Providers Copied on Encounter [facility], [address] [place] [address], [id number], [place] tel:[phone] Dental Clinic Dental examination Garrett DMD September. [address] [place], [place], [id number], [place]. tel:[phone] [facility], [address] [place] [address], [id number], tel:[phone] Dental Clinic Dental examination Garrett DMD Briseida. [address] [place], [place], [id number], [place]. tel:[phone] [facility], [address] [place] [address], [id number], [place] tel:[phone] Dental Clinic Dental examination Garrett DMD September. [address] [place], [place], [id number], [place]. tel:[phone] Family History Family Member Type Diagnosis Age At Onset No Information Payers Payer name Insurance type Covered constitution party ID Authorbrittanya petr(s) No Information Social History Type Description Quantity Date Captured Comments Alcohol Use Details Unknown Caffeine Use Details Unknown Tobacco Use Status Smoking Status No Information Sex Male Vital Signs Date / Time: Height Weight BMI Pulse Rate Blood Pressure Temperature Respiratory Rate Body Surface Area Head Circumference Head Circ. Percentile Wt./Ángel. Percentile BMI percentile Pulse Ox Inhaled Ox 1:20 PM 78 /min 134/93 mm[Hg] Chief Complaint And Reason For Visit No Information Reason For Referral Reason For Referral No Information History Of Present Illness Encounter Date Complaint History Of Prese nt Illness No Information Functional Status Date Functional Assessmen t No Information Instructions Date Instruction Additional Infor mation No Information Assessments Type Assessment Date No Information Patient Care Teams Name Effective Dates (start - stop) Status Members No Information
--- NOTE | 2025-06-01 | XR_ITS ---
[facility] [place] [id number] Patient Name: ALLIE TORRE MRN: [id number] date: 1990 Sex: M Assigned Patient Location: [facility] Current Patient Location: [facility] Accession/Order Number: [id number] Exam Date: 06/01/2025 13:10 Report Date: 06/01/2025 14:18 At the request of: IGGY SMITH Procedure: XR cervical spine 5V CERVICAL SPINE 5 views: CLINICAL HISTORY: M54.2 Cervicalgia COMPARISON: None FINDINGS: No fracture malalignment. Disc spaces heights preserved. Vertebral heights maintained. Paraspinal soft tissues unremarkable. Odontoid view is unremarkable. Lung apices are clear. XR/XR cervical spine 5V IMPRESSION: NEGATIVE ACUTE OSSEOUS ABNORMALITY. NO SIGNIFICANT DEGENERATIVE CHANGE BY X-RAY. Impression dictated by: Aj Keyes M.D. 06/01/2025 2:18 PM Dictation Location: [place] [address] Electronically authenticated by: [id number] Y Date: 06/01/2025 14:18
--- NOTE | 2025-06-01 | XR_ITS ---
[facility] [place] [id number] Patient Name: ALLIE TORRE MRN: [id number] date: 1990 Sex: M Assigned Patient Location: [facility] Current Patient Location: [facility] Accession/Order Number: [id number] Exam Date: 06/01/2025 13:10 Report Date: 06/01/2025 14:16 At the request of: IGGY SMITH Procedure: XR shoulder LT min 2V 3 views left shoulder CLINICAL HISTORY: Pain in left shoulder COMPARISON: None FINDINGS: Stable sclerotic lesion left proximal humerus. No fracture or dislocation identified. Joint spaces preserved. Posterior changes involving the chest wall incision sternotomy noted. IMPRESSION: No acute bony process. Impression dictated by: Aj Keyes M.D. 06/01/2025 2:16 PM Dictation Location: [place] [address] Electronically authenticated by: [id number] Y Date: 06/01/2025 14:16
--- OUTSIDE RECORDS SUMMARY | 2025-06-01 13:00 | XMS_ITS | Clinical Summary ---
Author Organization [facility] Healthcare Address [address] [place] [address] Care Team Providers Care Walking Dragline Oiler Name Role Phone Unavailable Primary Care Provider Unavailabl e Social History Tobacco UseTypesPacks/DayYears UsedDateSmoking Tobacco: Never AssessedSex and Gender InformationValueDate RecordedSex Assigned at BirthNot on fileLegal Sex Male09/07/2022 7:10 PM EDTGender IdentityNot on fileSexual OrientationNot on file Last Filed Vital Signs Vital SignReadingTime TakenCommentsBlood Pveyxvip890/7203 12:00 PM EDT Pulse--Temperature--Respiratory Rate--Oxygen Saturation--Inhaled Oxygen Concentration--Agfsjx34.9 kg (218 lb)04/14/2021 12:00 PM FHLZtqtnv999 cm (6' 2 ) 04/14/2021 12:00 PM EDTBody Mass Index27.9904/14/2021 12:00 PM EDT Plan of Treatment Not on file Insurance
--- OUTSIDE RECORDS SUMMARY | 2025-06-01 13:00 | XMS_ITS | Clinical Summary ---
Author Organization [facility] Address [address] [place] [address] Care Team Providers Care Steam Blocker Name Role Phone Phys, Self-Refer Or No Pcp/Referring Primary Car e Provider Unavailable Social History Tobacco UseTypesPacks/DayYears UsedDateSmoking Tobacco: Never AssessedSex and Gender InformationValueDate RecordedSex Assigned at BirthNot on fileLegal Sex Male03/28/2016 9:22 AM EDTGender IdentityNot on fileSexual OrientationNot on file Plan of Treatment Health MaintenanceDue DateLast DoneCommentsHepatitis C Fvxxjeeqy1990 DTaP,Tdap,and Td Vaccines (1 - Tdap)2009Hepatitis B [...] Phys, Self-Refer Or No Pcp/Referring PCP - Orlhqeu69/18/16
--- OUTSIDE RECORDS SUMMARY | 2025-06-01 13:00 | XMS_ITS | Clinical Summary ---
Author Organization [facility] tem Address [id number] [address] [place] [address] Care Team Providers Care Crane Chaser Name Role Phone No Pcp, No Pcp Primary Care Provider Unavailabl e Allergies Active AllergyReactionsCriticalityNoted DateCommentsDiphenhydramine Hcl 06/16/20189766Bddqhbrokpq88/22/2018 Medications MedicationSigDispense QuantityRefillsLast FilledStart DateEnd DateStatus aspirin 81 mg chewable tablet Chew 81 mg and swallow daily.Active traMADol (ULTRAM) 50 mg tablet Take 50 mg by mouth every 6 (six) hours as needed for pain.Active Family History Medical HistoryRelationNameCommentsNo Known ProblemsFatherNo Known Problems MotherRelationNameStatusCommentsFatherMother Social History Tobacco UseTypesPacks/DayYears UsedDateSmoking Tobacco: Every DayCigarettes Smokeless Tobacco: NeverAlcohol UseStandard Drinks/WeekCommentsYes2 (1 standard drink = 0.6 oz pure alcohol)3 times a weekChildcareAnswerDate RecordedChildcare Etpmfky0012/06/2018EmploymentAnswerDate AxedxwrkFgajjztkenWefhzhx78/13/2019Purpose - LifeAnswerDate RecordedPurpose and direction in vizfRpoekab71/11/2021Sex and Gender InformationValueDate RecordedSex Assigned at BirthNot on fileLegal Sex Male06/16/2018 11:45 PM ESTGender IdentityNot on fileSexual OrientationNot on file Last Filed Vital Signs Vital SignReadingTime TakenCommentsBlood Glrnprmi954/8206 6:00 PM EDT Yowlq161412/13/2018 4:23 PM BEPXdcgppwjrrc34.7 ??C (98.1 ??F)12/13/2018 3:56 PM EDTRespiratory Muzr765012/13/2018 4:23 PM EDTOxygen Beftgwjphm49%12/13/2018 6:00 PM EDTInhaled Oxygen Concentration--Zpiezo47.8 kg (220 lb)12/13/2018 3:56 PM EDT Uioouy586 cm (6' 2 )12/13/2018 3:56 PM EDTBody Mass Index28.25012/13/2018 3:56 PM EDT Plan of Treatment Health MaintenanceDue DateLast DoneCommentsDepression Jniajvepy53/04/2002Tobacco Ppaliprin07/04/2002Adult BMI Gchmlrefa16/04/2008DTaP,Tdap and Td Vaccines (1 - Tdap)2009Influenza Qrqmgkp2402/24/2025 Medical Devices Not on file Care Teams Team MemberRelationshipSpecialtyStart DateEnd Date No [place] [address] PCP - GeneralFamily Mnznkwjn73/23/18
== END 2025-06-01 12:55 | disposition home or self-care (01) ==
LOC: RAD 12:56
PROVIDERS: PCP Nurse Practitioner; Visit Provider Nurse Practitioner
DX: M54.2 Cervicalgia (principal); M25.512 Pain in left shoulder; Z68.30 Body mass index [BMI] 30.0-30.9, adult
CPT/HCPCS: 72050; 73030